=== PATIENT | female | born 1985 | race Caucasian/White ===

== ENCOUNTER 2017-01-11 03:01 | Emergency (ER) | payer BC ==
[~2017-01-11] VITALS: Ht 162.6 cm; Wt 113.9 kg
[~2017-01-11 03:01] MED LIST: ALPR0.25 PO; ESCI20TA PO; FLUT1DIS3 INH; LEVO750T31 PO; METH4TAB2 PO; PRED20TA PO
[2017-01-11 03:05] VITALS: BP 154/82
[2017-01-11] MEDS ORDERED: BENZ100C PO (03:17)
[2017-01-11] MEDS ORDERED: DEXAMETHASONE SOD PHOS 4 MG/ML VIAL ONE (03:20)
[2017-01-11] MEDS ORDERED: IBUPROFEN 600 MG TABLET. PO ONE ×2 (03:20→03:30)
--- NOTE | 2017-01-11 03:23 | ED.ADGEN ---
Past Medical History Past Medical History: Anxiety, Asthma, Pneumonia, Other Additional Past Medical Histor: h/o trach placement d/t pneumonia , PANIC ATTACKS Past Surgical History: , Tubal ligation, Other Additional Past Surgical Histo: TRACH, ORIF LEFT ARM Alcohol Use: None Drug Use: None Adult General Chief Complaint Chief Complaint: COUGH HPI HPI Patient is a 31 year old woman, history of asthma, pneumonia, who presents to the emergency department with a complaint of cough. Patient states that she's been experiencing rhinorrhea with post nasal drip, and cough over the past week or so, with sore throat that occurred several days ago, denies any sore throat this time, still complaining of post nasal drip and negative cough. States it is worse when she lies flat. She states that she was using some leftover Tessalon pearls they have not been helping. Denies any fevers or chills, any productive sputum over the past several days, any wheezing or shortness breath, any chest pain, any nausea or vomiting, any diarrhea. Denies any injuries. 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 Oxygen saturation is 94-98% room air, respiratory rate is 22 and unlabored, heart rate of 88. Review of Systems Review of Systems Constitutional: Denies fever or chills. [] Eyes: Denies change in visual acuity. [] HENT: Denies nasal congestion or sore throat. [] Respiratory: Denies cough and postnasal drip, no shortness of breath cough or shortness of breath. [] Cardiovascular: Denies chest pain or edema. [] GI: Denies abdominal pain, nausea, vomiting, bloody stools or diarrhea. [] : Denies dysuria. [] Musculoskeletal: Denies back pain or joint pain. [] Integument: Denies rash. [] Neurologic: Denies headache, focal weakness or sensory changes. [] Endocrine: Denies polyuria or polydipsia. [] Lymphatic: Denies swollen glands. [] Psychiatric: Denies depression or anxiety. [] Current Medications Current Medications Current Medications Medications (Trade) Dose Ordered Sig/Fady Start Time Stop Time Status Last Admin Dose Admin Dexamethasone Sodium Phosphate (Decadron) 6 mg 1X ONCE 01/11/17 03:15 01/11/17 03:16 UNV Ibuprofen (Motrin) 600 mg 1X ONCE 01/11/17 03:15 01/11/17 03:16 UNV Allergies Allergies Allergies Coded Allergies Type Severity Reaction Last Updated Verified diphenhydramine Allergy Intermediate 04/09/14 Yes Physical Exam Physical Exam Constitutional: Well developed, well nourished, no acute distress, non-toxic appearance. [] HENT: Normocephalic, atraumatic, bilateral external ears normal, oropharynx moist, no oral exudates, patient was determined swelling bilaterally, clear rhinorrhea, postnasal drip noted in the oropharynx, mildly injected, no evidence of exudates. Eyes: PERRLA, EOMI, conjunctiva normal, no discharge. [] Neck: Normal range of motion, no tenderness, supple, no stridor. [] Cardiovascular:Heart rate regular rhythm, no murmur, S1, S2, no rubs or gallops. [] Lungs & Thorax: Bilateral breath sounds clear to auscultation, no wheezing, rhonchi, rales. No chest wall tenderness or crepitus. [] Abdomen: Bowel sounds normal, soft, no tenderness, no rebound, rigidity, no guarding, no masses, no pulsatile masses. [] Skin: Warm, dry, no erythema, no rash. [] Back: No tenderness, no CVA tenderness. [] Extremities: No tenderness, no cyanosis, no clubbing, ROM intact, no edema. Negative Homans sign. [] Neurologic: Alert and oriented X 3, normal motor function, normal sensory function, no focal deficits noted. [] Psychologic: Affect normal, judgement normal, mood normal. [] Current Patient Data Vital Signs Vital Signs Date Time Temp Pulse Resp B/P Pulse Ox O2 Delivery O2 Flow Rate FiO2 01/11/17 03:05 98.0 95 22 96 Room Air 98.0 EKG EKG Not indicated. [] Radiology/Procedures Radiology/Procedures Not indicated. [] Course & Med Decision Making Course & Med Decision Making Pertinent Labs and Imaging studies reviewed. (See chart for details) Patient's examination and history is consistent with a viral upper respiratory infection. No evidence of lower airspace disease. I did discuss these findings with patient, due to the evidence irritation in her throat, we'll treat with a single dose of Decadron in the ED, there is no evidence of bacterial infection on examination or history. No indication for antibiotics. I did discuss this with patient, she is agreeable with this plan, single dose of Decadron given in the ED without issue along with ibuprofen, discussed use ibuprofen, acetaminophen, Tessalon Perles, patient was given a new prescription as the one she has are several years old, and use of Flonase which she does have at home already for treatment of symptoms, along with fluids and supportive care. We did discuss concerning symptoms that prompt return. Patient voiced understanding and agreement. Patient discharged home in stable condition with plan as above. Dragon Disclaimer Dragon Disclaimer This electronic medical record was generated, in whole or in part, using a voice recognition dictation system. Departure Impression: Primary Impression: Cough Additional Impression: Postnasal drip Disposition: 01 HOME, SELF-CARE Condition: IMPROVED Scripts Benzonatate (Tessalon Perle)100 Mg [id number] Mg PO TID PRN COUGH #14 CAP Prov:KIRK QURESHI DO 01/11/17 Problem Qualifiers KIRK QURESHI DO Jan 11, 2017 03:23
[2017-01-11] MEDS ORDERED: DEXAMETHASONE SOD PHOS 4 MG/ML VIAL PO ONE (03:30)
== END 2017-01-11 03:33 | disposition home or self-care (01) ==
LOC: ER 03:01
DX: R09.82 Postnasal drip (principal); R05 Cough; J45.909 Unspecified asthma, uncomplicated; Z87.01 Personal history of pneumonia (recurrent); Z88.8 Allergy status to other drugs, medicaments and biological substances
CPT/HCPCS: 99283; J1100

== ENCOUNTER 2017-08-15 22:02 | Emergency (ER) | payer BC ==
[~2017-08-15] VITALS: Ht 165.1 cm; Wt 117.9 kg
[~2017-08-15 22:02] MED LIST changes: +BENZ100C PO; -ESCI20TA PO; +ESCITALOPRAM OX20 MG PO
[2017-08-15 22:47] LABS: BILIRUBIN,URINE NEGATIVE (NEG); GLUCOSE,URINE NEGATIVE (NEG); NITRITE,URINE NEGATIVE (NEG); PROTEIN,URINE NEGATIVE (NEG-TRACE)
[2017-08-15 22:52] LABS: BACTERIA,URINE FEW /HPF (0-FEW); RBC,URINE OCC /HPF (0-2); SQUAMOUS EPITHELIAL CELL,UR MOD /LPF
[2017-08-15] MEDS ORDERED: fentaNYL PF VIAL 100 MCG/2 ML VIAL IV PRN (23:00)
[2017-08-15] MEDS ORDERED: IV NORMAL SALINE 1000ML BAG 1,000 ML IV SCH (23:00)
--- NOTE | 2017-08-15 23:34 | PHYS DOC ---
Past Medical History Past Medical History: Asthma Additional Past Medical Histor: h/o trach placement d/t pneumonia , PANIC ATTACKS Past Surgical History: Cholecystectomy, , Other Additional Past Surgical Histo: ARM Alcohol Use: None Drug Use: None Adult General Chief Complaint Chief Complaint: ABDOMINAL PAIN [facility] HPI This is A 31-year-old female who presents being prescribed chief complaint abdominal pain. The patient reports a small area in her left upper quadrant small area on her left lower quadrant and a small area in her right upper quadrant that is tender after doing some heavy lifting today. The patient is concerned that she would've developed a hernia. The patient never previously had a hernia. The patient rates the pain as a 7/10. The patient denies nausea or vomiting. The patient denies nausea or vomiting or diarrhea. Review of Systems Review of Systems Constitutional: Denies fever or chills [] Eyes: Denies change in visual acuity, redness, or eye pain [] HENT: Denies nasal congestion or sore throat [] Respiratory: Denies cough or shortness of breath [] Cardiovascular: No additional information not addressed in HPI [] GI: Denies nausea, vomiting, bloody stools or diarrhea [] : Denies dysuria or hematuria [] Musculoskeletal: Denies back pain or joint pain [] Integument: Denies rash or skin lesions [] Neurologic: Denies headache, focal weakness or sensory changes [] Endocrine: Denies polyuria or polydipsia [] Current Medications Current Medications Current Medications Medications (Trade) Dose Ordered Sig/Fady Start Time Stop Time Status Last Admin Dose Admin Fentanyl Citrate (Fentanyl 2ml Vial) 50 mcg PRN Q15MIN PRN 08/15/17 23:00 08/16/17 00:00 DC Sodium Chloride 1,000 ml @ 1,000 mls/hr Q1H 08/15/17 23:00 08/15/17 23:59 DC Allergies Allergies Allergies Coded Allergies Type Severity Reaction Last Updated Verified diphenhydramine Allergy Intermediate 04/09/14 Yes Physical Exam Physical Exam Constitutional: Well developed, well nourished, no acute distress, non-toxic appearance. [] HENT: Normocephalic, atraumatic, bilateral external ears normal, oropharynx moist, no oral exudates, nose normal. [] Eyes: PERRLA, EOMI, conjunctiva normal, no discharge. [] Neck: Normal range of motion, no tenderness, supple, no stridor. [] Cardiovascular:Heart rate regular rhythm, no murmur [] Lungs & Thorax: Bilateral breath sounds clear to auscultation [] Abdomen: Bowel sounds normal, soft, 2 cm area diameter left upper quadrant of abdominal tenderness, 2 cm diameter area left lower quadrant of abdominal tenderness, 2 cm diameter area of tenderness in the right upper quadrant, no abdomen allergies to the abdominal wall noted no hernias., no masses, no pulsatile masses. [] Skin: Warm, dry, no erythema, no rash. [] Back: No tenderness, no CVA tenderness. [] Extremities: No tenderness, no cyanosis, no clubbing, ROM intact, no edema. [] Neurologic: Alert and oriented X 3, normal motor function, normal sensory function, no focal deficits noted. [] Psychologic: Affect normal, judgement normal, mood normal. [] Current Patient Data Vital Signs Vital Signs Date Time Temp Pulse Resp B/P (MAP) Pulse Ox O2 Delivery O2 Flow Rate FiO2 08/15/17 23:58 98.2 81 16 138/89 (105) 95 Room Air 98.2 Lab Values Laboratory Tests Test 08/15/17 22:22 08/15/17 22:24 Urine Collection Type Unknown Urine Color Yellow Urine Clarity Clear Urine pH 6.0 Urine Specific [place] >=1.030 Urine Protein Negative mg/dL (NEG-TRACE) Urine Glucose (UA) Negative mg/dL (NEG) Urine Ketones (Stick) Negative mg/dL (NEG) Urine Blood Negative (NEG) Urine Nitrite Negative (NEG) Urine Bilirubin Negative (NEG) Urine Urobilinogen Dipstick 1.0 mg/dL (0.2 mg/dL) Urine Leukocyte Esterase Negative (NEG) Urine RBC Occ /HPF (0-2) Urine WBC 1-4 /HPF (0-4) Urine Squamous Epithelial Cells Mod /LPF Urine Bacteria Few /HPF (0-FEW) Urine Mucus Marked /LPF POC Urine HCG, Qualitative Hcg negative (Negative) EKG EKG [] Radiology/Procedures Radiology/Procedures [] Course & Med Decision Making Course & Med Decision Making Pertinent Labs and Imaging studies reviewed. (See chart for details) The patient has no abdominal wall abnormality. The patient does have a few areas of tenderness to her abdomen. The patient would like to try a course of outpatient ibuprofen and see if this improves. We discussed possibly the patient may have an abdominal wall strain which could be causing her discomfort. I referred her to follow up with primary care physician.[] Dragon Disclaimer Dragon Disclaimer This electronic medical record was generated, in whole or in part, using a voice recognition dictation system. Departure Departure Referrals: NITESH WHITLOCK (PCP) Scripts Ibuprofen (MOTRIN IB) 200 Mg Tablet 800 MG PO Q8H Y for PAIN, #30 TAB Prov: LIANNE LEWIS MD 08/15/17 LIANNE LEWIS MD Aug 15, 2017 23:34
[2017-08-15] MEDS ORDERED: IBUP200T43 PO (23:36)
[2017-08-15 23:58] VITALS: BP 138/89
== END 2017-08-16 | disposition home or self-care (01) ==
LOC: ER 22:02
DX: R10.84 Generalized abdominal pain (principal); J45.909 Unspecified asthma, uncomplicated; Z88.8 Allergy status to other drugs, medicaments and biological substances
CPT/HCPCS: 81001; 81025; 99283

== ENCOUNTER 2018-07-28 06:08 | Inpatient (IN) | payer BC ==
[~2018-07-28] VITALS: Ht 170.2 cm; Wt 106.6 kg
[~2018-07-28 06:08] MED LIST changes: +IBUP200T44 PO
--- NOTE | 2018-07-28 06:54 | PHYS DOC ---
Past Medical History Past Medical History: Anxiety, Asthma Additional Past Medical Histor: h/o trach placement d/t pneumonia , PANIC ATTACKS Past Surgical History: Cholecystectomy, , Other Additional Past Surgical Histo: ARM Alcohol Use: Occasionally Drug Use: Marijuana Adult General Chief Complaint Chief Complaint: SHORTNESS OF BREATH HPI HPI Patient is a 32 year old female who presents with dyspnea. The patient states she has had upper respiratory symptoms and congestion over the last 5-7 days. She had some sinus drainage as well. She does have a known history of asthma for which she uses albuterol at home. Over the last 2 days, her albuterol has been poorly controlled with her medications at home. She also has a cough that is productive of sputum. The patient does have a previous history of multilobar pneumonia requiring ICU admission and intubation with subsequent tracheostomy. She has had some chills this week but no fever. Her primary complaint on arrival to the ER today is shortness of breath. Review of Systems Review of Systems Constitutional: Denies fever Eyes: Denies change in visual acuity HENT: no sore throat Respiratory: + cough and SOA Cardiovascular: No additional information not addressed, no chest pain GI: Denies abdominal pain, nausea, vomiting : Denies dysuria Musculoskeletal: Denies joint pain Integument: Denies rash or skin lesions Neurologic: Denies headache All other systems were reviewed and found to be within normal limits, except as documented in this note. Current Medications Current Medications Current Medications Medications (Trade) Dose Ordered Sig/Fady Start Time Stop Time Status Last Admin Dose Admin Albuterol Sulfate (Ventolin Neb Soln) 10 mg 1X ONCE 07/28/18 07:00 07/28/18 07:02 DC 07/28/18 07:25 10 MG Albuterol/ Ipratropium (Duoneb) 3 ml 1X ONCE 07/28/18 07:00 07/28/18 07:01 DC 07/28/18 06:37 3 ML Azithromycin 250 ml @ 250 mls/hr 1X ONCE 07/28/18 08:15 07/28/18 09:14 Ceftriaxone Sodium 50 ml @ 100 mls/hr 1X ONCE 07/28/18 08:15 07/28/18 08:44 Magnesium Sulfate 50 ml @ 25 mls/hr 1X ONCE 07/28/18 07:15 07/28/18 09:14 07/28/18 07:41 25 MLS/HR Prednisone (Prednisone) 50 mg 1X ONCE 07/28/18 07:00 07/28/18 07:01 DC 07/28/18 06:47 50 MG Sodium Chloride 1,000 ml @ 1,000 mls/hr 1X ONCE 07/28/18 07:00 07/28/18 07:59 DC 07/28/18 07:03 1,000 MLS/HR Allergies Allergies Allergies Coded Allergies Type Severity Reaction Last Updated Verified diphenhydramine Allergy Intermediate 04/09/14 Yes Physical Exam Physical Exam Constitutional: Well developed, well nourished, mild increased work of breathing but no acute distress HENT: Normocephalic, atraumatic Eyes: EOMI, normal conjunctiva Neck: Normal range of motion, no tenderness, supple Cardiovascular: tachycardic rhythm Lungs & Thorax: Bilateral breath sounds diminished with faint wheezes Abdomen: Bowel sounds normal, soft, no tenderness Skin: Warm, dry, no erythema Extremities: No edema Neurologic: Alert and oriented X 3 Psychologic: Affect normal Current Patient Data Vital Signs Vital Signs Date Time Temp Pulse Resp B/P (MAP) Pulse Ox O2 Delivery O2 Flow Rate FiO2 07/28/18 07:28 117 22 163/91 (115) 93 CONT NEB 07/28/18 06:10 99.0 99.0 Lab Values Laboratory Tests Test 07/28/18 06:40 07/28/18 07:10 07/28/18 07:35 Lactic Acid Level 1.6 mmol/L (0.4-2.0) White Blood Count 10.8 x10^3/uL (4.0-11.0) Red Blood Count 5.09 x10^6/uL (3.50-5.40) Hemoglobin 14.3 g/dL (12.0-15.5) Hematocrit 41.5 % (36.0-47.0) Mean Corpuscular Volume 81 fL (79-100) Mean Corpuscular Hemoglobin 28 pg (25-35) Mean Corpuscular Hemoglobin Concent 35 g/dL (31-37) Red Cell Distribution Width 13.8 % (11.5-14.5) Platelet Count 225 x10^3/uL (140-400) Neutrophils (%) (Auto) 73 % (31-73) Lymphocytes (%) (Auto) 19 % (24-48) L Monocytes (%) (Auto) 4 % (0-9) Eosinophils (%) (Auto) 4 % (0-3) H Basophils (%) (Auto) 1 % (0-3) Neutrophils # (Auto) 7.8 x10^3uL (1.8-7.7) H Lymphocytes # (Auto) 2.0 x10^3/uL (1.0-4.8) Monocytes # (Auto) 0.5 x10^3/uL (0.0-1.1) Eosinophils # (Auto) 0.4 x10^3/uL (0.0-0.7) Basophils # (Auto) 0.1 x10^3/uL (0.0-0.2) D-Dimer ([place]) 0.30 ug/mlFEU (0.00-0.50) Sodium Level 136 mmol/L (136-145) Potassium Level 3.9 mmol/L (3.5-5.1) Chloride Level 102 mmol/L (98-107) Carbon Dioxide Level 25 mmol/L (21-32) Anion Gap 9 (6-14) Blood Urea Nitrogen 12 mg/dL (7-20) Creatinine 0.8 mg/dL (0.6-1.0) Estimated GFR (Cockcroft-Gault) 84.2 Glucose Level 129 mg/dL (70-99) H Calcium Level 9.1 mg/dL (8.5-10.1) Troponin I Quantitative < 0.017 ng/mL (0.000-0.055) YU-Dcb-P-Type Natriuretic Peptide 30 pg/mL (0-124) POC Urine HCG, Qualitative Hcg negative (Negative) Laboratory Tests 07/28/18 07:10 Laboratory Tests 07/28/18 07:10 EKG EKG [] Radiology/Procedures Radiology/Procedures Findings: Decreased lung volumes are seen. Chronic bibasilar scarring is seen. However, there appears to be an infiltrate with air bronchograms within the medial left lung base and infrahilar region. Developing pneumonia is possible here. The heart size, pulmonary vasculature, mediastinum and both yeni are stable. Impression: Left infrahilar pneumonia. Impressions: Pneumonia Course & Med Decision Making Course & Med Decision Making Pertinent Labs and Imaging studies reviewed. (See chart for details) Patient is seen shortly after arrival to her room. HR noted to be 120's. Diminished air flow in all lung boggs. No fever. Orders placed for d dimer, labs, PCXR, magnesium, albuterol. 08:20: X-ray is returned. Patient has left infrahilar infiltrate. Blood cultures were added to her lab panel. Rocephin and azithromycin are ordered IV. The patient currently has some improvement in her vital signs. Her heart rate continues to be 120. She does have an O2 sat of 95% which was improved from 91% on arrival to the ER. Her CBC is not elevated. Her lactate is normal range. She does continue to have wheezes. She is status post one hour long albuterol nebulized treatment and 2 g of magnesium sulfate. Given the patient's history of prior pneumonia, intubation, and trach placement, plan today will be to admit the patient for IV antibiotics and close observation as well as ongoing treatment of her reactive airway disease. I spoke to Dr. tamayo who is agreeable to admit the patient. I also explained all the results to the patient and answered all of her questions. She is agreeable to the plan of care. Dragon Disclaimer Dragon Disclaimer This electronic medical record was generated, in whole or in part, using a voice recognition dictation system. Departure Departure Referrals: NITESH WHITLOCK (PCP) DARWIN VEE DO Jul 28, 2018 06:54
[2018-07-28] MEDS ORDERED: ALBUTEROL SULFATE 2.5 MG/3 ML NEBU. CONT NEB ONE (07:00)
[2018-07-28] MEDS ORDERED: IV NORMAL SALINE 1000ML BAG 1,000 ML IV ONE (07:00)
[2018-07-28] MEDS ORDERED: predniSONE 20 MG TABLET PO ONE (07:00)
[2018-07-28] MEDS ORDERED: IPRATRPIUM/ALBUTEROL 0.5/2.5MG 3 ML NEBU. NEB ONE (07:00)
[2018-07-28] MEDS ORDERED: MAGNESIUM SULFATE 2GM 50 ML IV ONE (07:15)
[2018-07-28 07:18] LABS: BASO # 0.1 x10^3/uL (0.0-0.2); BASO % 1 % (0-3); EOS # 0.4 x10^3/uL (0.0-0.7); EOS % 4 % (0-3); HEMATOCRIT 41.5 % (36.0-47.0); HEMOGLOBIN 14.3 g/dL (12.0-15.5); LYMPH % 19 % (24-48); MEAN CORPUSCULAR HEMOGLOBIN 28 pg (25-35); MEAN CORPUSCULAR HGB CONC 35 g/dL (31-37); MEAN CORPUSCULAR VOLUME 81 fL (79-100); MONO # 0.5 x10^3/uL (0.0-1.1); MONO % 4 % (0-9); NEUT # 7.8 x10^3uL (1.8-7.7); NEUT % 73 % (31-73); PLATELET COUNT 225 x10^3/uL (140-400); RED BLOOD COUNT 5.09 x10^6/uL (3.50-5.40); RED CELL DISTRIBUTION WIDTH 13.8 % (11.5-14.5); WHITE BLOOD COUNT 10.8 x10^3/uL (4.0-11.0)
[2018-07-28 07:27] LABS: CALCIUM 9.1 mg/dL (8.5-10.1); CREATININE 0.8 mg/dL (0.6-1.0); GFR 84.2; POTASSIUM 3.9 mmol/L (3.5-5.1)
--- NOTE | 2018-07-28 07:58 | RAD ---
PORTABLE CHEST 1V Clinical indications: History of asthma. productive cough COMPARISON: August 06, 2016. Findings: Decreased lung volumes are seen. Chronic bibasilar scarring is seen. However, there appears to be an infiltrate with air bronchograms within the medial left lung base and infrahilar region. Developing pneumonia is possible here. The heart size, pulmonary vasculature, mediastinum and both yeni are stable. Impression: Left infrahilar pneumonia. Electronically signed by: Lester Bowling MD (07/28/2018 7:54 AM) [facility]
[2018-07-28] MEDS ORDERED: AZITHRMYCN 500MG IVPB FOR OMNI 250 ML IV ONE (08:15)
[2018-07-28] MEDS ORDERED: ONDANSETRON PF 4 MG/2 ML VIAL. IV PRN (08:45)
[2018-07-28] MEDS ORDERED: HYDROcodone/APAP 5/325MG 1 TAB TABLET PO ONE (08:45)
[2018-07-28] MEDS ORDERED: ACETAMINOPHEN 325 MG TABLET. PO PRN (08:45)
[2018-07-28] MEDS ORDERED: ALBUTEROL SULFATE 2.5 MG/3 ML NEBU. NEB PRN (09:30)
[2018-07-28] MEDS ORDERED: BUDESONIDE 0.5 MG/2 ML NEBU. NEB ONE (09:30)
[2018-07-28 10:56] VITALS: BP 133/76
[2018-07-28] MEDS: IPRATRPIUM/ALBUTEROL 0.5/2.5MG 3 ML NEBU. NEB SCH ×3 (11:05→19:17)
[2018-07-28] MEDS ORDERED: TOPI25TA7 PO (11:23)
[2018-07-28] MEDS ORDERED: METF500T16 PO (11:23)
[2018-07-28] MEDS ORDERED: PHEN37.53 PO (11:23)
[2018-07-28] MEDS: AZITHROMYCIN 250 MG TABLET. PO SCH (12:39)
[2018-07-28] MEDS ORDERED: IBUPROFEN 800 MG TABLET. PO PRN (12:45)
[2018-07-28] MEDS ORDERED: BENZONATATE 100 MG CAPSULE. PO PRN (14:00)
[2018-07-28] MEDS: CITALOPRAM 20 MG TABLET. PO SCH (14:53)
[2018-07-28 15:00] VITALS: BP 129/77
[2018-07-28] MEDS: PROMETH/CODEINE 6.25/10MG 5 ML SYRUP. PO PRN (16:00)
--- NOTE | 2018-07-28 16:33 | PDOC1 ---
History and Physical Date of Admission Date of Admission DATE: 07/28/18 TIME: 16:14 Identification/Chief Complaint Chief Complaint cough, dyspnea Source Source: Chart review, Patient History of Present Illness History of Present Illness Ms. Ordaz, is a 32 year old female seen in the ER, cough and shortness of breath, admit with dyspnea. she complains of respiratory symptoms and congestion over the last 5-7 days. much worse overnight and this AM with cough, not prod. of sputum she has been using her rescue inhaler repeatedly without much benefit. Past Medical History Cardiovascular: No pertinent hx Pulmonary: Asthma GI: No pertinent hx Heme/Onc: No pertinent hx Hepatobiliary: No pertinent hx Psych: No pertinent hx Infectious disease: No pertinent hx Family History Family History: No Significant Social History Smoke: # pack years Drugs: None Current Problem List Problem List Problems Medical Problems: (1) Pneumonia Status: Acute Current Medications Current Medications Current Medications Prednisone (Prednisone) 50 mg 1X ONCE PO Last administered on 07/28/18at 06:47; Start 07/28/18 at 07:00; Stop 07/28/18 at 07:01; Status DC Albuterol/ Ipratropium (Duoneb) 3 ml 1X ONCE NEB Last administered on at 06:37; Start 07/28/18 at 07:00; Stop 07/28/18 at 07:01; Status DC Sodium Chloride 1,000 ml @ 1,000 mls/hr 1X ONCE IV Last administered on at 07:03; Start 07/28/18 at 07:00; Stop 07/28/18 at 07:59; Status DC Albuterol Sulfate (Ventolin Neb Soln) 10 mg 1X ONCE CONT NEB Last administered on 07/28/18at 07:25; Start 07/28/18 at 07:00; Stop 07/28/18 at 07:02; Status DC Magnesium Sulfate 50 ml @ 25 mls/hr 1X ONCE IV Last administered on 07/28/18at 07:41; Start 07/28/18 at 07:15; Stop 07/28/18 at 09:14; Status DC Ceftriaxone Sodium 50 ml @ 100 mls/hr 1X ONCE IV Last administered on at 08:52; Start 07/28/18 at 08:15; Stop 07/28/18 at 08:44; Status DC Azithromycin 250 ml @ 250 mls/hr 1X ONCE IV Last administered on 07/28/18at 09: 20; Start 07/28/18 at 08:15; Stop 07/28/18 at 09:14; Status DC Acetaminophen/ Hydrocodone Bitart (Lortab 5/325) 2 tab 1X ONCE PO Last administered on 07/28/18at 08:49; Start 07/28/18 at 08:45; Stop 07/28/18 at 08:46; Status DC Ondansetron HCl (Zofran) 4 mg PRN Q8HRS PRN IV NAUSEA/VOMITING; Start 07/28/18 at 08:45; Stop 07/29/18 at 08:44 Acetaminophen (Tylenol) 650 mg PRN Q4HRS PRN PO FEVER; Start 07/28/18 at 08:45; Stop 07/29/18 at 08:44 Albuterol/ Ipratropium (Duoneb) 3 ml RTQID NEB Last administered on 07/28/18at 15 :56; Start 07/28/18 at 12:00; Stop 07/29/18 at 11:59 Acetaminophen/ Hydrocodone Bitart (Lortab 5/325) 2 tab Q6H PRN PO pain unrelieved by other meds; Start 07/28/18 at 08:45 Prednisone (Prednisone) 60 mg DAILY PO ; Start 07/29/18 at 09:00 Budesonide (Pulmicort) 0.5 mg RTBID NEB ; Start 07/28/18 at 20:00 Budesonide (Pulmicort) 0.5 mg 1X ONCE NEB Last administered on 07/28/18at 11:06 ; Start 07/28/18 at 09:30; Stop 07/28/18 at 09:31; Status DC Albuterol Sulfate (Ventolin Neb Soln) 2.5 mg PRN Q4HRS PRN NEB SHORTNESS OF BREATH; Start 07/28/18 at 09:30 Azithromycin (Zithromax) 250 mg DAILY PO Last administered on 07/28/18at 12:39; Start 07/28/18 at 10:00 Alprazolam (Xanax) 0.25 mg PRN Q6HRS PRN PO ANXIETY / AGITATION; Start 07/28/18 at 12:45 Ibuprofen (Motrin) 800 mg PRN Q8HRS PRN PO PAIN MILD/INFLAMMATION; Start at 12:45 Benzonatate (Tessalon Perle) 100 mg PRN TID PRN PO COUGH 2ND CHOICE; Start 07/28 at 14:00 Citalopram Hydrobromide (CeleXA) 40 mg DAILY PO Last administered on 07/28/18at 14:53; Start 07/28/18 at 13:00 Metformin HCl (Glucophage) 500 mg BIDWMEALS PO ; Start 07/28/18 at 17:00 Promethazine HCl/ Codeine (Phenergan With Codeine) 5 ml PRN Q6HRS PRN PO COUGH 1ST CHOICE Last administered on 07/28/18at 16:00; Start 07/28/18 at 15:30 Guaifenesin (MUCINEX ER with DM) 1 tab BID PO ; Start 07/28/18 at 21:00 Lactobacillus Rhamnosus (Culturelle) 1 cap BID PO ; Start 07/28/18 at 21:00 Active Scripts Active Motrin Ib (Ibuprofen) 200 Mg Tablet 800 Mg PO Q8H PRN Tessalon Perle (Benzonatate) 100 Mg Capsule 100 Mg PO TID PRN Prednisone 20 Mg Tablet 40 Mg PO DAILY START MEDICATIONS ON 08/07/2016 Medrol (Methylprednisolone) 4 Mg Tab.ds.pk 1 Pkg PO UD Levaquin (Levofloxacin) 750 Mg Tablet 750 Mg PO DAILY06 Advair 250-50 Diskus (Fluticasone/Salmeterol) 1 Puff Puff 1 Puff INH BID Reported Topiramate 25 Mg Tablet 1 Tab PO HS Phentermine Hcl 37.5 Mg Capsule 1 Cap PO DAILYWBKFT Metformin Hcl 500 Mg Tablet 500 Mg PO BIDWMEALS Escitalopram Oxalate 20 Mg Tablet 1 Tab PO DAILY Xanax (Alprazolam) 0.25 Mg Tablet 0.25 Mg PO PRN Q6HRS PRN Allergies Allergies: Coded Allergies: diphenhydramine (Verified Allergy, Intermediate, 04/09/14) ROS General: YES: Fatigue, Malaise PSYCHOLOGICAL ROS: YES: Sleep disturbances, Suicidal ideation; No: Anxiety, Behavioral Disorder, Concentration difficultie, Decreased libido , Depression, Disorientation, Hallucinations, Hostility, Irritablity, Memory difficulties, Mood Swings, Obsessive thoughts, Other Eyes: No Blurry vision, No Decreased vision, No Double vision, No Dry eyes, No Excessive tearing, No Eye Pain, No Itchy Eyes, No Loss of vision, No Photophobia , No Scotomata, No Uses contacts, No Uses glasses, No Other HEENT: No: Heacaches, Visual Changes, Hearing change, Nasal congestion, Nasal discharge, Oral lesions, Sinus pain, Sore Throat, Epistaxis, Sneezing, Snoring, Tinnitus, Vertigo, Vocal changes, Other ENDOCRINE: No: Breast Changes, Galactorrhea, Hair Pattern Changes, Hot Flashes , Malaise/lethargy, Mood Swings, Palpitations, Polydipsia/polyuria, Skin Changes , Temperature Intolerance, Unexpected Weight Changes, Other Breast: No New/Changing Breast Lumps, No Nipple changes, No Nipple discharge, No Other Respiratory: YES: Cough, Shortness of breath, SOB with excertion, Tachypnea, Wheezing; No: Hemoptysis, Orthopnea, Pleuritic Pain, Sputum Changes, Stridor, Other Cardiovascular: No Chest Pain, No Palpitations, No Orthopnea, No Paroxysmal Noc. Dyspnea, No Edema, No Lt Headedness, No Other Gastrointestinal: No Nausea, No Vomiting, No Abdominal Pain, No Diarrhea, No Constipation, No Melena, No Hematochezia, No Other Genitourinary: No Dysuria, No Frequency, No Incontinence, No Hematuria, No Retention, No Discharge, No Urgency, No Pain, No Flank Pain, No Other, No , No , No , No , No , No , No Musculoskeletal: No Gait Disturbance, No Joint Pain, No Joint Stiffness, No Joint Swelling, No Muscle Pain, No Muscular Weakness, No Pain In:, No Swelling In:, No Other Neurological: No Behavorial Changes, No Bowel/Bladder ControlChng, No Confusion , No Dizziness, No Gait Disturbance, No Headaches, No Impaired Coord/balance, No Memory Loss, No Numbness/Tingling, No Seizures, No Speech Problems, No Tremors, No Visual Changes, No Weakness, No Other Skin: Yes Dry Skin; No Eczema, No Hair Changes, No Lumps, No Mole Changes, No Mottling, No Nail Changes, No Pruritus, No Rash, No Skin Lesion Changes, No Other, No Acne Physical Exam General: Alert, Cooperative, mild distress HEENT: Atraumatic, PERRLA, EOMI, Mucous membr. moist/pink Lungs: Normal air movement, Other (rhonchi, rales, end wheeze) Heart: S1S2, no gallops, no murmurs Abdomen: Normal bowel sounds, Soft Rectal Exam: not examined, deferred Extremities: No cyanosis, No edema, Normal pulses Skin: No rashes Neuro: Normal speech, Normal tone, Sensation intact Psych/Mental Status: Mental status NL, Mood NL Vitals Vitals Vital Signs Date Time Temp Pulse Resp B/P (MAP) Pulse Ox O2 Delivery O2 Flow Rate FiO2 07/28/18 15:56 93 Nasal Cannula 3.0 07/28/18 15:00 97.9 123 129/77 (94) 97.9 07/28/18 10:56 20 Labs Labs Laboratory Tests Test 07/28/18 06:40 07/28/18 07:10 07/28/18 07:35 Lactic Acid Level 1.6 mmol/L (0.4-2.0) White Blood Count 10.8 x10^3/uL (4.0-11.0) Red Blood Count 5.09 x10^6/uL (3.50-5.40) Hemoglobin 14.3 g/dL (12.0-15.5) Hematocrit 41.5 % (36.0-47.0) Mean Corpuscular Volume 81 fL (79-100) Mean Corpuscular Hemoglobin 28 pg (25-35) Mean Corpuscular Hemoglobin Concent 35 g/dL (31-37) Red Cell Distribution Width 13.8 % (11.5-14.5) Platelet Count 225 x10^3/uL (140-400) Neutrophils (%) (Auto) 73 % (31-73) Lymphocytes (%) (Auto) 19 % (24-48) Monocytes (%) (Auto) 4 % (0-9) Eosinophils (%) (Auto) 4 % (0-3) Basophils (%) (Auto) 1 % (0-3) Neutrophils # (Auto) 7.8 x10^3uL (1.8-7.7) Lymphocytes # (Auto) 2.0 x10^3/uL (1.0-4.8) Monocytes # (Auto) 0.5 x10^3/uL (0.0-1.1) Eosinophils # (Auto) 0.4 x10^3/uL (0.0-0.7) Basophils # (Auto) 0.1 x10^3/uL (0.0-0.2) D-Dimer (Alannah) 0.30 ug/mlFEU (0.00-0.50) Sodium Level 136 mmol/L (136-145) Potassium Level 3.9 mmol/L (3.5-5.1) Chloride Level 102 mmol/L (98-107) Carbon Dioxide Level 25 mmol/L (21-32) Anion Gap 9 (6-14) Blood Urea Nitrogen 12 mg/dL (7-20) Creatinine 0.8 mg/dL (0.6-1.0) Estimated GFR (Cockcroft-Gault) 84.2 Glucose Level 129 mg/dL (70-99) Calcium Level 9.1 mg/dL (8.5-10.1) Troponin I Quantitative < 0.017 ng/mL (0.000-0.055) HQ-Sql-C-Type Natriuretic Peptide 30 pg/mL (0-124) Bedside Urine HCG, Qualitative Hcg negative (Negative) Laboratory Tests Test 07/28/18 06:40 07/28/18 07:10 07/28/18 07:35 Lactic Acid Level 1.6 mmol/L (0.4-2.0) White Blood Count 10.8 x10^3/uL (4.0-11.0) Red Blood Count 5.09 x10^6/uL (3.50-5.40) Hemoglobin 14.3 g/dL (12.0-15.5) Hematocrit 41.5 % (36.0-47.0) Mean Corpuscular Volume 81 fL (79-100) Mean Corpuscular Hemoglobin 28 pg (25-35) Mean Corpuscular Hemoglobin Concent 35 g/dL (31-37) Red Cell Distribution Width 13.8 % (11.5-14.5) Platelet Count 225 x10^3/uL (140-400) Neutrophils (%) (Auto) 73 % (31-73) Lymphocytes (%) (Auto) 19 % (24-48) Monocytes (%) (Auto) 4 % (0-9) Eosinophils (%) (Auto) 4 % (0-3) Basophils (%) (Auto) 1 % (0-3) Neutrophils # (Auto) 7.8 x10^3uL (1.8-7.7) Lymphocytes # (Auto) 2.0 x10^3/uL (1.0-4.8) Monocytes # (Auto) 0.5 x10^3/uL (0.0-1.1) Eosinophils # (Auto) 0.4 x10^3/uL (0.0-0.7) Basophils # (Auto) 0.1 x10^3/uL (0.0-0.2) D-Dimer (Alannah) 0.30 ug/mlFEU (0.00-0.50) Sodium Level 136 mmol/L (136-145) Potassium Level 3.9 mmol/L (3.5-5.1) Chloride Level 102 mmol/L (98-107) Carbon Dioxide Level 25 mmol/L (21-32) Anion Gap 9 (6-14) Blood Urea Nitrogen 12 mg/dL (7-20) Creatinine 0.8 mg/dL (0.6-1.0) Estimated GFR (Cockcroft-Gault) 84.2 Glucose Level 129 mg/dL (70-99) Calcium Level 9.1 mg/dL (8.5-10.1) Troponin I Quantitative < 0.017 ng/mL (0.000-0.055) HI-Xcr-N-Type Natriuretic Peptide 30 pg/mL (0-124) Bedside Urine HCG, Qualitative Hcg negative (Negative) VTE Prophylaxis Ordered VTE Prophylaxis Devices: Yes VTE Pharmacological Prophylaxi: No Assessment/Plan Assessment/Plan sepsis, pneumonia EZ, abx started, Pulm consulted hypoxia, nebs, inhl and systemtic steroids, hx asthma morbid obesity, BMI 40.7 admit RAMON RUST MD Jul 28, 2018 16:32
[2018-07-28] MEDS: metFORMIN 500 MG TABLET PO SCH (16:55)
[2018-07-28] MEDS: HYDROcodone/APAP 5/325MG 1 TAB TABLET PO PRN (16:56)
[2018-07-28] MEDS: ALPRAZolam 0.25 MG TABLET PO PRN (17:00)
--- NOTE | 2018-07-28 17:07 | PDOC ---
PULMONARY PROGRESS NOTES Vitals Vital Signs Date Time Temp Pulse Resp B/P (MAP) Pulse Ox O2 Delivery O2 Flow Rate FiO2 07/28/18 15:56 93 Nasal Cannula 3.0 07/28/18 15:00 97.9 123 129/77 (94) 97.9 07/28/18 10:56 20 General: Alert, No acute distress Lungs: Other Cardiovascular: S1 Abdomen: Soft Extremities: No Edema Labs Laboratory Tests Test 07/28/18 06:40 07/28/18 07:10 07/28/18 07:35 Lactic Acid Level 1.6 mmol/L (0.4-2.0) White Blood Count 10.8 x10^3/uL (4.0-11.0) Red Blood Count 5.09 x10^6/uL (3.50-5.40) Hemoglobin 14.3 g/dL (12.0-15.5) Hematocrit 41.5 % (36.0-47.0) Mean Corpuscular Volume 81 fL (79-100) Mean Corpuscular Hemoglobin 28 pg (25-35) Mean Corpuscular Hemoglobin Concent 35 g/dL (31-37) Red Cell Distribution Width 13.8 % (11.5-14.5) Platelet Count 225 x10^3/uL (140-400) Neutrophils (%) (Auto) 73 % (31-73) Lymphocytes (%) (Auto) 19 % (24-48) Monocytes (%) (Auto) 4 % (0-9) Eosinophils (%) (Auto) 4 % (0-3) Basophils (%) (Auto) 1 % (0-3) Neutrophils # (Auto) 7.8 x10^3uL (1.8-7.7) Lymphocytes # (Auto) 2.0 x10^3/uL (1.0-4.8) Monocytes # (Auto) 0.5 x10^3/uL (0.0-1.1) Eosinophils # (Auto) 0.4 x10^3/uL (0.0-0.7) Basophils # (Auto) 0.1 x10^3/uL (0.0-0.2) D-Dimer (Alannah) 0.30 ug/mlFEU (0.00-0.50) Sodium Level 136 mmol/L (136-145) Potassium Level 3.9 mmol/L (3.5-5.1) Chloride Level 102 mmol/L (98-107) Carbon Dioxide Level 25 mmol/L (21-32) Anion Gap 9 (6-14) Blood Urea Nitrogen 12 mg/dL (7-20) Creatinine 0.8 mg/dL (0.6-1.0) Estimated GFR (Cockcroft-Gault) 84.2 Glucose Level 129 mg/dL (70-99) Calcium Level 9.1 mg/dL (8.5-10.1) Troponin I Quantitative < 0.017 ng/mL (0.000-0.055) DA-Bsx-K-Type Natriuretic Peptide 30 pg/mL (0-124) Bedside Urine HCG, Qualitative Hcg negative (Negative) Laboratory Tests Test 07/28/18 06:40 07/28/18 07:10 07/28/18 07:35 Lactic Acid Level 1.6 mmol/L (0.4-2.0) White Blood Count 10.8 x10^3/uL (4.0-11.0) Red Blood Count 5.09 x10^6/uL (3.50-5.40) Hemoglobin 14.3 g/dL (12.0-15.5) Hematocrit 41.5 % (36.0-47.0) Mean Corpuscular Volume 81 fL (79-100) Mean Corpuscular Hemoglobin 28 pg (25-35) Mean Corpuscular Hemoglobin Concent 35 g/dL (31-37) Red Cell Distribution Width 13.8 % (11.5-14.5) Platelet Count 225 x10^3/uL (140-400) Neutrophils (%) (Auto) 73 % (31-73) Lymphocytes (%) (Auto) 19 % (24-48) Monocytes (%) (Auto) 4 % (0-9) Eosinophils (%) (Auto) 4 % (0-3) Basophils (%) (Auto) 1 % (0-3) Neutrophils # (Auto) 7.8 x10^3uL (1.8-7.7) Lymphocytes # (Auto) 2.0 x10^3/uL (1.0-4.8) Monocytes # (Auto) 0.5 x10^3/uL (0.0-1.1) Eosinophils # (Auto) 0.4 x10^3/uL (0.0-0.7) Basophils # (Auto) 0.1 x10^3/uL (0.0-0.2) D-Dimer (Alannah) 0.30 ug/mlFEU (0.00-0.50) Sodium Level 136 mmol/L (136-145) Potassium Level 3.9 mmol/L (3.5-5.1) Chloride Level 102 mmol/L (98-107) Carbon Dioxide Level 25 mmol/L (21-32) Anion Gap 9 (6-14) Blood Urea Nitrogen 12 mg/dL (7-20) Creatinine 0.8 mg/dL (0.6-1.0) Estimated GFR (Cockcroft-Gault) 84.2 Glucose Level 129 mg/dL (70-99) Calcium Level 9.1 mg/dL (8.5-10.1) Troponin I Quantitative < 0.017 ng/mL (0.000-0.055) QV-Kzl-H-Type Natriuretic Peptide 30 pg/mL (0-124) Bedside Urine HCG, Qualitative Hcg negative (Negative) Medications Active Scripts Medications Dose Route/Sig Max Daily Dose Days Date Category Dose Instructions Topiramate 25 Mg Tablet 1 Tab PO HS 07/28/18 Reported Phentermine Hcl 37.5 Mg Capsule 1 Cap PO DAILYWBKFT 07/28/18 Reported Metformin Hcl 500 Mg Tablet 500 Mg PO BIDWMEALS 07/28/18 Reported Motrin Ib (Ibuprofen) 200 Mg Tablet 800 Mg PO Q8H PRN 08/15/17 Rx Tessalon Perle (Benzonatate) 100 Mg Capsule 100 Mg PO TID PRN 01/11/17 Rx Prednisone 20 Mg Tablet 40 Mg PO DAILY 08/06/16 Rx START MEDICATIONS ON 08/07/2016 Medrol (Methylprednisolone) 4 Mg Tab.ds.pk 1 Pkg PO UD 11/16/14 Rx Levaquin (Levofloxacin) 750 Mg Tablet 750 Mg PO DAILY06 11/16/14 Rx Advair 250-50 Diskus (Fluticasone/Salmeterol) 1 Puff Puff 1 Puff INH BID 11/16/14 Rx Escitalopram Oxalate 20 Mg Tablet 1 Tab PO DAILY 11/09/14 Reported Xanax (Alprazolam) 0.25 Mg Tablet 0.25 Mg PO PRN Q6HRS PRN 11/09/14 Reported Impression . pneumonia aecodp agree with current rx thanks DESI HERNÁNDEZ MD Jul 28, 2018 17:07
[2018-07-28 19:06] VITALS: BP 140/91
[2018-07-28] MEDS: BUDESONIDE 0.5 MG/2 ML NEBU. NEB SCH (19:18)
--- NOTE | 2018-07-28 19:33 | CONS ---
DATE OF CONSULTATION: 07/28/2018 ATTENDING PHYSICIAN: Dr. Jazmin Busch. REASON FOR CONSULTATION: The patient seen in pulmonary consultation at the request of Dr. Busch for increasing shortness of air, abnormal chest x-ray. HISTORY OF PRESENT ILLNESS: The patient is a 32-year-old with what sounds like mild intermittent asthma. She normally uses p.r.n. albuterol. She states that when she is doing well, she on average, may use it once every 2 weeks. In the past, she has been on Advair, but has not had any frequent acute exacerbations. She presented as a result of having upper respiratory tract infection last week, cough. She became more short of breath and wheezing. She presented to the Emergency Department. She had a chest x-ray, which I personally reviewed. There is a left infrahilar infiltrate. She was also hypoxic. She is currently on oxygen supplementation and antibiotics. PAST MEDICAL HISTORY: 1. Asthma as a child, mild. She normally uses albuterol p.r.n. She does also smoke. She may have a component of COPD. 2. Anxiety/depression. 3. Prior history of pneumonia and trach placement. 4. Panic attack. PAST SURGICAL HISTORY: Status post cholecystectomy, . ALLERGIES: DIPHENHYDRAMINE. REVIEW OF SYSTEMS: CONSTITUTIONAL: No fever. EYES: No change in visual acuity. HEENT: No nasal congestion or sore throat. RESPIRATORY: As indicated above. CARDIOVASCULAR: No chest pain. No pressure. GASTROINTESTINAL: No nausea, vomiting or diarrhea. GENITOURINARY: No dysuria or frequency. MUSCULOSKELETAL: No localized joint pain or muscle pain. She does have some lower back pain secondary to cough. SKIN: No new skin rashes. NEUROLOGIC: No headaches, diplopia or blurred vision. CURRENT MEDICATIONS: List was reviewed. SOCIAL HISTORY: She smokes on and off. Works outside the home. No significant alcohol intake. FAMILY HISTORY: No family history of early lung disorders. PHYSICAL EXAMINATION: VITAL SIGNS: Stable. O2 saturation was greater than 92%. HEENT: Eyes, the sclerae were nonicteric. NECK: Jugular venous distention was not elevated. No lymphadenopathy. CHEST: Full expansion. LUNGS: Poor airway flow with no wheezes or rales. CARDIOVASCULAR: Regular rate and rhythm with S1, S2, no S3. ABDOMEN: Soft, obese. EXTREMITIES: No clubbing, cyanosis or pitting edema. NEUROLOGIC: The patient was awake, alert, following commands. A detailed neuro exam was not performed. LABORATORY DATA: Reviewed. White count was normal. Hemoglobin and hematocrit were likewise normal. Electrolytes were within normal range. D-dimer was not elevated. UA was noted. IMPRESSION: 1. Abnormal x-ray compatible with pneumonia. 2. Acute exacerbation of chronic obstructive pulmonary disease with an asthma component. 3. Acute hypoxemic respiratory failure. 4. Morbid obesity, body mass index of 40. 5. Anxiety/panic attacks. 6. Status post cholecystectomy. PLAN: 1. Discontinue coverage for pneumonia. 2. Nebulized treatments. 3. Oxygen supplementation. 4. Steroids. 5. P.r.n. Xanax. 6. Pain management. I do appreciate the privilege in sharing in the patient's care. DESI HERNÁNDEZ MD DR: JOSE/lester JOB#: [id number] / [id number]
[2018-07-28] MEDS: LACTOBACILLUS RHAMNOSUS GG 1 CAPSULE. PO SCH (20:52)
[2018-07-28] MEDS: guaiFENesin DM 600/30MG 1 TAB TAB.ER.12H PO SCH (20:52)
[2018-07-28 22:41] VITALS: BP 116/70
[2018-07-29 02:32] VITALS: BP 109/67
[2018-07-29] MEDS: PROMETH/CODEINE 6.25/10MG 5 ML SYRUP. PO PRN ×3 (03:39→16:25)
[2018-07-29 05:40] LABS: BASO % 0 % (0-3); EOS # 0.1 x10^3/uL (0.0-0.7); EOS % 1 % (0-3); HEMATOCRIT 41.1 % (36.0-47.0); HEMOGLOBIN 13.5 g/dL (12.0-15.5); LYMPH # 2.1 x10^3/uL (1.0-4.8); LYMPH % 17 % (24-48); MEAN CORPUSCULAR HEMOGLOBIN 27 pg (25-35); MEAN CORPUSCULAR HGB CONC 33 g/dL (31-37); MEAN CORPUSCULAR VOLUME 82 fL (79-100); MONO # 0.9 x10^3/uL (0.0-1.1); MONO % 7 % (0-9); NEUT # 9.2 x10^3uL (1.8-7.7); NEUT % 75 % (31-73); PLATELET COUNT 223 x10^3/uL (140-400); RED BLOOD COUNT 5.02 x10^6/uL (3.50-5.40); RED CELL DISTRIBUTION WIDTH 14.1 % (11.5-14.5); WHITE BLOOD COUNT 12.4 x10^3/uL (4.0-11.0)
[2018-07-29] MEDS: HYDROcodone/APAP 5/325MG 1 TAB TABLET PO PRN ×3 (06:41→23:09)
[2018-07-29 07:00] VITALS: BP 125/84
[2018-07-29] MEDS: IPRATRPIUM/ALBUTEROL 0.5/2.5MG 3 ML NEBU. NEB SCH ×5 (07:29→22:50)
[2018-07-29] MEDS: BUDESONIDE 0.5 MG/2 ML NEBU. NEB SCH ×2 (07:29→19:49)
[2018-07-29] MEDS ORDERED: predniSONE 20 MG TABLET PO SCH (09:00)
[2018-07-29] MEDS: predniSONE 20 MG TABLET PO SCH (10:06)
[2018-07-29] MEDS: cefTRIAXone IV Push 1 GM VIAL. IVP SCH (10:06)
[2018-07-29] MEDS: AZITHROMYCIN 250 MG TABLET. PO SCH (10:06)
[2018-07-29] MEDS: LACTOBACILLUS RHAMNOSUS GG 1 CAPSULE. PO SCH ×2 (10:06→21:44)
[2018-07-29] MEDS: metFORMIN 500 MG TABLET PO SCH ×2 (10:07→17:00)
[2018-07-29] MEDS: guaiFENesin DM 600/30MG 1 TAB TAB.ER.12H PO SCH ×2 (10:07→21:44)
[2018-07-29] MEDS: CITALOPRAM 20 MG TABLET. PO SCH (10:08)
--- NOTE | 2018-07-29 10:29 | PDOC ---
PULMONARY PROGRESS NOTES Subjective remains on 50% VM Vitals Vital Signs Date Time Temp Pulse Resp B/P (MAP) Pulse Ox O2 Delivery O2 Flow Rate FiO2 07/29/18 07:41 20 84 Venturi Mask 20.0 07/29/18 07:00 98.1 120 125/84 (98) 98.1 ROS: No Chest Pain General: Alert, Oriented X4, No acute distress Lungs: Wheezing Cardiovascular: S1 Abdomen: Soft Neuro Exam: Alert Extremities: No Edema Skin: Warm Labs Laboratory Tests Test 07/28/18 06:40 07/28/18 07:10 07/28/18 07:35 07/29/18 04:10 Lactic Acid Level 1.6 mmol/L (0.4-2.0) White Blood Count 10.8 x10^3/uL (4.0-11.0) 12.4 x10^3/uL (4.0-11.0) Red Blood Count 5.09 x10^6/uL (3.50-5.40) 5.02 x10^6/uL (3.50-5.40) Hemoglobin 14.3 g/dL (12.0-15.5) 13.5 g/dL (12.0-15.5) Hematocrit 41.5 % (36.0-47.0) 41.1 % (36.0-47.0) Mean Corpuscular Volume 81 fL (79-100) 82 fL (79-100) Mean Corpuscular Hemoglobin 28 pg (25-35) 27 pg (25-35) Mean Corpuscular Hemoglobin Concent 35 g/dL (31-37) 33 g/dL (31-37) Red Cell Distribution Width 13.8 % (11.5-14.5) 14.1 % (11.5-14.5) Platelet Count 225 x10^3/uL (140-400) 223 x10^3/uL (140-400) Neutrophils (%) (Auto) 73 % (31-73) 75 % (31-73) Lymphocytes (%) (Auto) 19 % (24-48) 17 % (24-48) Monocytes (%) (Auto) 4 % (0-9) 7 % (0-9) Eosinophils (%) (Auto) 4 % (0-3) 1 % (0-3) Basophils (%) (Auto) 1 % (0-3) 0 % (0-3) Neutrophils # (Auto) 7.8 x10^3uL (1.8-7.7) 9.2 x10^3uL (1.8-7.7) Lymphocytes # (Auto) 2.0 x10^3/uL (1.0-4.8) 2.1 x10^3/uL (1.0-4.8) Monocytes # (Auto) 0.5 x10^3/uL (0.0-1.1) 0.9 x10^3/uL (0.0-1.1) Eosinophils # (Auto) 0.4 x10^3/uL (0.0-0.7) 0.1 x10^3/uL (0.0-0.7) Basophils # (Auto) 0.1 x10^3/uL (0.0-0.2) 0.0 x10^3/uL (0.0-0.2) D-Dimer (Alannah) 0.30 ug/mlFEU (0.00-0.50) Sodium Level 136 mmol/L (136-145) Potassium Level 3.9 mmol/L (3.5-5.1) Chloride Level 102 mmol/L (98-107) Carbon Dioxide Level 25 mmol/L (21-32) Anion Gap 9 (6-14) Blood Urea Nitrogen 12 mg/dL (7-20) Creatinine 0.8 mg/dL (0.6-1.0) Estimated GFR (Cockcroft-Gault) 84.2 Glucose Level 129 mg/dL (70-99) Calcium Level 9.1 mg/dL (8.5-10.1) Troponin I Quantitative < 0.017 ng/mL (0.000-0.055) JK-Pqh-A-Type Natriuretic Peptide 30 pg/mL (0-124) Bedside Urine HCG, Qualitative Hcg negative (Negative) Laboratory Tests Test 07/29/18 04:10 White Blood Count 12.4 x10^3/uL (4.0-11.0) Red Blood Count 5.02 x10^6/uL (3.50-5.40) Hemoglobin 13.5 g/dL (12.0-15.5) Hematocrit 41.1 % (36.0-47.0) Mean Corpuscular Volume 82 fL (79-100) Mean Corpuscular Hemoglobin 27 pg (25-35) Mean Corpuscular Hemoglobin Concent 33 g/dL (31-37) Red Cell Distribution Width 14.1 % (11.5-14.5) Platelet Count 223 x10^3/uL (140-400) Neutrophils (%) (Auto) 75 % (31-73) Lymphocytes (%) (Auto) 17 % (24-48) Monocytes (%) (Auto) 7 % (0-9) Eosinophils (%) (Auto) 1 % (0-3) Basophils (%) (Auto) 0 % (0-3) Neutrophils # (Auto) 9.2 x10^3uL (1.8-7.7) Lymphocytes # (Auto) 2.1 x10^3/uL (1.0-4.8) Monocytes # (Auto) 0.9 x10^3/uL (0.0-1.1) Eosinophils # (Auto) 0.1 x10^3/uL (0.0-0.7) Basophils # (Auto) 0.0 x10^3/uL (0.0-0.2) Medications Active Scripts Medications Dose Route/Sig Max Daily Dose Days Date Category Dose Instructions Topiramate 25 Mg Tablet 1 Tab PO HS 07/28/18 Reported Phentermine Hcl 37.5 Mg Capsule 1 Cap PO DAILYWBKFT 07/28/18 Reported Metformin Hcl 500 Mg Tablet 500 Mg PO BIDWMEALS 07/28/18 Reported Motrin Ib (Ibuprofen) 200 Mg Tablet 800 Mg PO Q8H PRN 08/15/17 Rx Tessalon Perle (Benzonatate) 100 Mg Capsule 100 Mg PO TID PRN 01/11/17 Rx Prednisone 20 Mg Tablet 40 Mg PO DAILY 08/06/16 Rx START MEDICATIONS ON 08/07/2016 Medrol (Methylprednisolone) 4 Mg Tab.ds.pk 1 Pkg PO UD 11/16/14 Rx Levaquin (Levofloxacin) 750 Mg Tablet 750 Mg PO DAILY06 11/16/14 Rx Advair 250-50 Diskus (Fluticasone/Salmeterol) 1 Puff Puff 1 Puff INH BID 11/16/14 Rx Escitalopram Oxalate 20 Mg Tablet 1 Tab PO DAILY 11/09/14 Reported Xanax (Alprazolam) 0.25 Mg Tablet 0.25 Mg PO PRN Q6HRS PRN 11/09/14 Reported Impression . 1. Abnormal x-ray compatible with pneumonia. Left Infra hilar infiltrate 2. Acute exacerbation of chronic obstructive pulmonary disease with an asthma component. 3. Acute hypoxemic respiratory failure. 4. Morbid obesity, body mass index of 40. 5. Anxiety/panic attacks. 6. Status post cholecystectomy. Plan . 1. continue coverage for pneumonia. 2. Nebulized treatments. increase q 4 hr, add pulmicort 3. Oxygen supplementation. 4. Steroids PO 5. P.r.n. Xanax. 6. Pain management. MINI ORTIZ MD Jul 29, 2018 10:29
[2018-07-29 11:00] VITALS: BP 119/80
--- NOTE | 2018-07-29 11:36 | PDOC ---
PROGRESS NOTES Chief Complaint Chief Complaint sepsis, pneumonia EZ, acute hypoxic resp failure copd/asthma exacerbation smoker morbid obesity plan: fu with pulm cont abx cont duoneb, increased to q4h, cont albuterol prn decrease prednison on venti mask now, taper if tolerated to NC dvt, gi ppx labs tmr History of Present Illness History of Present Illness T 100.3 on venti mask cough and sob slightly better Vitals Vitals Vital Signs Date Time Temp Pulse Resp B/P (MAP) Pulse Ox O2 Delivery O2 Flow Rate FiO2 07/29/18 11:22 90 Venturi Mask 15.0 07/29/18 07:41 20 07/29/18 07:00 98.1 120 125/84 (98) 98.1 Physical Exam General: Alert, Cooperative, mild distress Heart: Regular rate, Normal S1, Normal S2 Lungs: Wheezing (bl mild decreased bs and mild wheezing) Abdomen: Normal bowel sounds, Soft Extremities: No cyanosis, No edema, Normal pulses Skin: No rashes Labs LABS Laboratory Tests Test 07/29/18 04:10 White Blood Count 12.4 x10^3/uL (4.0-11.0) Red Blood Count 5.02 x10^6/uL (3.50-5.40) Hemoglobin 13.5 g/dL (12.0-15.5) Hematocrit 41.1 % (36.0-47.0) Mean Corpuscular Volume 82 fL (79-100) Mean Corpuscular Hemoglobin 27 pg (25-35) Mean Corpuscular Hemoglobin Concent 33 g/dL (31-37) Red Cell Distribution Width 14.1 % (11.5-14.5) Platelet Count 223 x10^3/uL (140-400) Neutrophils (%) (Auto) 75 % (31-73) Lymphocytes (%) (Auto) 17 % (24-48) Monocytes (%) (Auto) 7 % (0-9) Eosinophils (%) (Auto) 1 % (0-3) Basophils (%) (Auto) 0 % (0-3) Neutrophils # (Auto) 9.2 x10^3uL (1.8-7.7) Lymphocytes # (Auto) 2.1 x10^3/uL (1.0-4.8) Monocytes # (Auto) 0.9 x10^3/uL (0.0-1.1) Eosinophils # (Auto) 0.1 x10^3/uL (0.0-0.7) Basophils # (Auto) 0.0 x10^3/uL (0.0-0.2) Assessment and Plan Assessmemt and Plan Problems Medical Problems: (1) Pneumonia Status: Acute Comment Review of Relevant I have reviewed the following items [place] (where applicable) has been applied. Labs Laboratory Tests Test 07/28/18 06:40 07/28/18 07:10 07/28/18 07:35 07/29/18 04:10 Lactic Acid Level 1.6 mmol/L (0.4-2.0) White Blood Count 10.8 x10^3/uL (4.0-11.0) 12.4 x10^3/uL (4.0-11.0) Red Blood Count 5.09 x10^6/uL (3.50-5.40) 5.02 x10^6/uL (3.50-5.40) Hemoglobin 14.3 g/dL (12.0-15.5) 13.5 g/dL (12.0-15.5) Hematocrit 41.5 % (36.0-47.0) 41.1 % (36.0-47.0) Mean Corpuscular Volume 81 fL (79-100) 82 fL (79-100) Mean Corpuscular Hemoglobin 28 pg (25-35) 27 pg (25-35) Mean Corpuscular Hemoglobin Concent 35 g/dL (31-37) 33 g/dL (31-37) Red Cell Distribution Width 13.8 % (11.5-14.5) 14.1 % (11.5-14.5) Platelet Count 225 x10^3/uL (140-400) 223 x10^3/uL (140-400) Neutrophils (%) (Auto) 73 % (31-73) 75 % (31-73) Lymphocytes (%) (Auto) 19 % (24-48) 17 % (24-48) Monocytes (%) (Auto) 4 % (0-9) 7 % (0-9) Eosinophils (%) (Auto) 4 % (0-3) 1 % (0-3) Basophils (%) (Auto) 1 % (0-3) 0 % (0-3) Neutrophils # (Auto) 7.8 x10^3uL (1.8-7.7) 9.2 x10^3uL (1.8-7.7) Lymphocytes # (Auto) 2.0 x10^3/uL (1.0-4.8) 2.1 x10^3/uL (1.0-4.8) Monocytes # (Auto) 0.5 x10^3/uL (0.0-1.1) 0.9 x10^3/uL (0.0-1.1) Eosinophils # (Auto) 0.4 x10^3/uL (0.0-0.7) 0.1 x10^3/uL (0.0-0.7) Basophils # (Auto) 0.1 x10^3/uL (0.0-0.2) 0.0 x10^3/uL (0.0-0.2) D-Dimer ([place]annah) 0.30 ug/mlFEU (0.00-0.50) Sodium Level 136 mmol/L (136-145) Potassium Level 3.9 mmol/L (3.5-5.1) Chloride Level 102 mmol/L (98-107) Carbon Dioxide Level 25 mmol/L (21-32) Anion Gap 9 (6-14) Blood Urea Nitrogen 12 mg/dL (7-20) Creatinine 0.8 mg/dL (0.6-1.0) Estimated GFR (Cockcroft-Gault) 84.2 Glucose Level 129 mg/dL (70-99) Calcium Level 9.1 mg/dL (8.5-10.1) Troponin I Quantitative < 0.017 ng/mL (0.000-0.055) PT-Drz-[id number]-Type Natriuretic Peptide 30 pg/mL (0-124) Bedside Urine HCG, Qualitative Hcg negative (Negative) Laboratory Tests Test 07/29/18 04:10 White Blood Count 12.4 x10^3/uL (4.0-11.0) Red Blood Count 5.02 x10^6/uL (3.50-5.40) Hemoglobin 13.5 g/dL (12.0-15.5) Hematocrit 41.1 % (36.0-47.0) Mean Corpuscular Volume 82 fL (79-100) Mean Corpuscular Hemoglobin 27 pg (25-35) Mean Corpuscular Hemoglobin Concent 33 g/dL (31-37) Red Cell Distribution Width 14.1 % (11.5-14.5) Platelet Count 223 x10^3/uL (140-400) Neutrophils (%) (Auto) 75 % (31-73) Lymphocytes (%) (Auto) 17 % (24-48) Monocytes (%) (Auto) 7 % (0-9) Eosinophils (%) (Auto) 1 % (0-3) Basophils (%) (Auto) 0 % (0-3) Neutrophils # (Auto) 9.2 x10^3uL (1.8-7.7) Lymphocytes # (Auto) 2.1 x10^3/uL (1.0-4.8) Monocytes # (Auto) 0.9 x10^3/uL (0.0-1.1) Eosinophils # (Auto) 0.1 x10^3/uL (0.0-0.7) Basophils # (Auto) 0.0 x10^3/uL (0.0-0.2) Microbiology 07/28/18 Blood Culture - Preliminary, Resulted NO GROWTH AFTER 1 DAY Medications Current Medications Prednisone (Prednisone) 50 mg 1X ONCE PO Last administered on 07/28/18at 06:47; Start 07/28/18 at 07:00; Stop 07/28/18 at 07:01; Status DC Albuterol/ Ipratropium (Duoneb) 3 ml 1X ONCE NEB Last administered on at 06:37; Start 07/28/18 at 07:00; Stop 07/28/18 at 07:01; Status DC Sodium Chloride 1,000 ml @ 1,000 mls/hr 1X ONCE IV Last administered on at 07:03; Start 07/28/18 at 07:00; Stop 07/28/18 at 07:59; Status DC Albuterol Sulfate (Ventolin Neb Soln) 10 mg 1X ONCE CONT NEB Last administered on 07/28/18at 07:25; Start 07/28/18 at 07:00; Stop 07/28/18 at 07:02; Status DC Magnesium Sulfate 50 ml @ 25 mls/hr 1X ONCE IV Last administered on 07/28/18at 07:41; Start 07/28/18 at 07:15; Stop 07/28/18 at 09:14; Status DC Ceftriaxone Sodium 50 ml @ 100 mls/hr 1X ONCE IV Last administered on at 08:52; Start 07/28/18 at 08:15; Stop 07/28/18 at 08:44; Status DC Azithromycin 250 ml @ 250 mls/hr 1X ONCE IV Last administered on 07/28/18at 09: 20; Start 07/28/18 at 08:15; Stop 07/28/18 at 09:14; Status DC Acetaminophen/ Hydrocodone Bitart (Lortab 5/325) 2 tab 1X ONCE PO Last administered on 07/28/18at 08:49; Start 07/28/18 at 08:45; Stop 07/28/18 at 08:46; Status DC Ondansetron HCl (Zofran) 4 mg PRN Q8HRS PRN IV NAUSEA/VOMITING Last administered on 07/28/18at 22:40; Start 07/28/18 at 08:45; Stop 07/29/18 at 08:44; Status DC Acetaminophen (Tylenol) 650 mg PRN Q4HRS PRN PO FEVER Last administered on at 22:40; Start 07/28/18 at 08:45; Stop 07/29/18 at 08:44; Status DC Albuterol/ Ipratropium (Duoneb) 3 ml RTQID NEB Last administered on 07/29/18at 07 :29; Start 07/28/18 at 12:00; Stop 07/29/18 at 10:30; Status DC Acetaminophen/ Hydrocodone Bitart (Lortab 5/325) 2 tab Q6H PRN PO pain unrelieved by other meds Last administered on 07/29/18at 06:41; Start 07/28/18 at 08:45 Prednisone (Prednisone) 60 mg DAILY PO ; Start 07/29/18 at 09:00; Stop 07/29/18 at 09:00; Status DC Budesonide (Pulmicort) 0.5 mg RTBID NEB Last administered on 07/29/18at 07:29; Start 07/28/18 at 20:00 Budesonide (Pulmicort) 0.5 mg 1X ONCE NEB Last administered on 07/28/18at 11:06 ; Start 07/28/18 at 09:30; Stop 07/28/18 at 09:31; Status DC Albuterol Sulfate (Ventolin Neb Soln) 2.5 mg PRN Q4HRS PRN NEB SHORTNESS OF BREATH; Start 07/28/18 at 09:30 Azithromycin (Zithromax) 250 mg DAILY PO Last administered on 07/29/18at 10:06; Start 07/28/18 at 10:00 Alprazolam (Xanax) 0.25 mg PRN Q6HRS PRN PO ANXIETY / AGITATION Last administered on 07/28/18at 17:00; Start 07/28/18 at 12:45 Ibuprofen (Motrin) 800 mg PRN Q8HRS PRN PO PAIN MILD/INFLAMMATION; Start at 12:45 Benzonatate (Tessalon Perle) 100 mg PRN TID PRN PO COUGH 2ND CHOICE; Start 07/28 at 14:00 Citalopram Hydrobromide (CeleXA) 40 mg DAILY PO Last administered on 07/29/18at 10:08; Start 07/28/18 at 13:00 Metformin HCl (Glucophage) 500 mg BIDWMEALS PO Last administered on 07/29/18at 10 :07; Start 07/28/18 at 17:00 Promethazine HCl/ Codeine (Phenergan With Codeine) 5 ml PRN Q6HRS PRN PO COUGH 1ST CHOICE Last administered on 07/29/18at 10:11; Start 07/28/18 at 15:30 Guaifenesin (MUCINEX ER with DM) 1 tab BID PO Last administered on 07/29/18at 10: 07; Start 07/28/18 at 21:00 Lactobacillus Rhamnosus (Culturelle) 1 cap BID PO Last administered on at 10:06; Start 07/28/18 at 21:00 Prednisone (Prednisone) 30 mg DAILY PO Last administered on 07/29/18at 10:06; Start 07/29/18 at 09:00 Ceftriaxone Sodium 1 gm/ Dextrose 50 ml @ 100 mls/hr Q24H IV ; Start 07/29/18 at 09:00; Status UNV Ceftriaxone Sodium (Rocephin) 1 gm Q24H IVP Last administered on 07/29/18at 10:06 ; Start 07/29/18 at 09:00 Albuterol/ Ipratropium (Duoneb) 3 ml Q4HRS NEB Last administered on 07/29/18at 11 :22; Start 07/29/18 at 12:00 Budesonide (Pulmicort) 0.5 mg RTBID NEB ; Start 07/29/18 at 20:00; Status UNV Active Scripts Active Motrin Ib (Ibuprofen) 200 Mg Tablet 800 Mg PO Q8H PRN Tessalon Perle (Benzonatate) 100 Mg Capsule 100 Mg PO TID PRN Prednisone 20 Mg Tablet 40 Mg PO DAILY START MEDICATIONS ON 08/07/2016 Medrol (Methylprednisolone) 4 Mg Tab.ds.pk 1 Pkg PO UD Levaquin (Levofloxacin) 750 Mg Tablet 750 Mg PO DAILY06 Advair 250-50 Diskus (Fluticasone/Salmeterol) 1 Puff Puff 1 Puff INH BID Reported Topiramate 25 Mg Tablet 1 Tab PO HS Phentermine Hcl 37.5 Mg Capsule 1 Cap PO DAILYWBKFT Metformin Hcl 500 Mg Tablet 500 Mg PO BIDWMEALS Escitalopram Oxalate 20 Mg Tablet 1 Tab PO DAILY Xanax (Alprazolam) 0.25 Mg Tablet 0.25 Mg PO PRN Q6HRS PRN Vitals/I & O Vital Sign - Last 24 Hours 07/28/18 07/28/18 07/28/18 07/28/18 15:00 15:56 16:56 19:06 Temp 97.9 98.0 97.9 98.0 Pulse 123 118 Resp 20 19 B/P (MAP) 129/77 (94) 140/91 (107) Pulse Ox 90 93 94 94 O2 Delivery Nasal Cannula Nasal Cannula Room Air Nasal Cannula O2 Flow Rate 2.0 3.0 2.0 07/28/18 07/28/18 07/28/18 07/28/18 19:19 19:20 20:00 22:41 Temp 100.3 100.3 Pulse 119 Resp 19 B/P (MAP) 116/70 (85) Pulse Ox 93 O2 Delivery Nasal Cannula Nasal Cannula Nasal Cannula Nasal Cannula O2 Flow Rate 3.0 3.0 2.0 2.0 07/29/18 07/29/18 07/29/18 07/29/18 02:32 06:41 07:00 07:29 Temp 98.7 98.1 98.7 98.1 Pulse 60 120 Resp 18 24 B/P (MAP) 109/67 (81) 125/84 (98) Pulse Ox 96 83 79 O2 Delivery Nasal Cannula Nasal Cannula Venturi Mask Nasal Cannula O2 Flow Rate 2.0 2.0 12.0 3.0 07/29/18 07/29/18 07:41 11:22 Resp 20 Pulse Ox 84 90 O2 Delivery Venturi Mask Venturi Mask O2 Flow Rate 20.0 15.0 Intake and Output 07/28/18 07/28/18 07/29/18 15:00 23:00 07:00 Intake Total 1350 ml 1100 ml 1200 ml Balance 1350 ml 1100 ml 1200 ml HUGH VILLEGAS MD Jul 29, 2018 11:36
[2018-07-29] MEDS ORDERED: ONDANSETRON PF 4 MG/2 ML VIAL. IV PRN (11:45)
[2018-07-29] MEDS ORDERED: ACETAMINOPHEN 325 MG TABLET. PO PRN (11:45)
[2018-07-29] MEDS ORDERED: MORPHINE SULFATE 2 MG/ML VIAL. IV PRN (11:45)
[2018-07-29] MEDS ORDERED: DOCUSATE SODIUM 100 MG CAPSULE. PO PRN (11:45)
[2018-07-29] MEDS ORDERED: traMADol 50 MG TABLET PO PRN (11:45)
[2018-07-29] MEDS: ENOXAPARIN 40 MG/0.4 ML SYRINGE. SQ SCH (13:30)
[2018-07-29 15:51] VITALS: BP 121/85
[2018-07-29 19:00] VITALS: BP 141/86
[2018-07-29] MEDS ORDERED: BUDESONIDE 0.5 MG/2 ML NEBU. NEB SCH (20:00)
[2018-07-29] MEDS ORDERED: FAMOTIDINE 20 MG TABLET. PO SCH (21:00)
--- NOTE | 2018-07-29 22:44 | EKG ---
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
[2018-07-29 23:02] LABS: BASE EXCESS ABG -2 mmol/L (-3-3); HCO3 ABG 25 mmol/L (21-28); PCO2 ABG 50 mmHg (35-46)
[2018-07-29 23:06] VITALS: BP 144/93
[2018-07-29] MEDS: ALPRAZolam 0.25 MG TABLET PO PRN (23:13)
[2018-07-29 23:31] LABS: SAT O2 ABG 67 % (92-99)
[2018-07-29 23:32] LABS: PO2 ABG < 42 mmHg (85-108)
[2018-07-30] VITALS (27 sets, daily range): BP systolic 56–173; BP diastolic 0–106
[2018-07-30] MEDS: ENOXAPARIN 40 MG/0.4 ML SYRINGE. SQ SCH ×2 (00:44→13:45)
[2018-07-30] MEDS: HALOPERIDOL LACTATE 5 MG/ML VIAL. IVP PRN ×2 (01:29→03:24)
[2018-07-30 03:41] LABS: BASE EXCESS ABG -1 mmol/L (-3-3); HCO3 ABG 27 mmol/L (21-28); PCO2 ABG 54 mmHg (35-46); PO2 ABG 87 mmHg (85-108); SAT O2 ABG 96 % (92-99)
[2018-07-30] MEDS: IPRATRPIUM/ALBUTEROL 0.5/2.5MG 3 ML NEBU. NEB SCH ×6 (03:46→23:14)
[2018-07-30 03:50] LABS: FIO2 ABG 100
[2018-07-30] MEDS ORDERED: PROPOFOL 100 ML IV ONE (04:12)
[2018-07-30] MEDS ORDERED: ETOMIDATE 20 MG/10 ML VIAL. IV ONE (04:18)
[2018-07-30 04:39] LABS: BASO % 0 % (0-3); EOS % 0 % (0-3); HEMATOCRIT 42.1 % (36.0-47.0); LYMPH # 2.1 x10^3/uL (1.0-4.8); LYMPH % 8 % (24-48); MEAN CORPUSCULAR HEMOGLOBIN 28 pg (25-35); MEAN CORPUSCULAR HGB CONC 33 g/dL (31-37); MEAN CORPUSCULAR VOLUME 83 fL (79-100); MONO # 1.9 x10^3/uL (0.0-1.1); MONO % 7 % (0-9); NEUT # 22.5 x10^3uL (1.8-7.7); NEUT % 85 % (31-73); PLATELET COUNT 246 x10^3/uL (140-400); RED BLOOD COUNT 5.07 x10^6/uL (3.50-5.40); RED CELL DISTRIBUTION WIDTH 14.4 % (11.5-14.5); WHITE BLOOD COUNT 26.5 x10^3/uL (4.0-11.0)
[2018-07-30 04:53] LABS: CALCIUM 9.1 mg/dL (8.5-10.1); CREATININE 0.8 mg/dL (0.6-1.0); GFR 84.2
--- NOTE | 2018-07-30 05:00 | RAD ---
AP chest x-ray COMPARISON: Chest x-ray July 28, 2018. HISTORY: Endotracheal and nasogastric tube placement. FINDINGS: Endotracheal tube has been placed tip 3 cm above the tom. Nasogastric tube has been placed tip extends to the left upper quadrant abdomen outside the [id number]. Heart size stable. No pneumothorax. Development of extensive alveolar opacities bilaterally since the study from 2 days ago most likely represents pulmonary edema or sequela of extensive aspiration. No pleural effusions. Bones unremarkable. IMPRESSION: Lines and tubes as described above. No pneumothorax. Development of extensive bilateral pulmonary alveolar opacities, likely pulmonary edema. Extensive aspiration would be a secondary consideration. Electronically signed by: Osmany Lam MD (07/30/2018 4:56 AM) [id number]
[2018-07-30 05:01] LABS: BASE EXCESS ABG -1 mmol/L (-3-3); HCO3 ABG 25 mmol/L (21-28); PCO2 ABG 48 mmHg (35-46); PO2 ABG 59 mmHg (85-108); SAT O2 ABG 90 % (92-99)
[2018-07-30 05:06] LABS: FIO2 ABG 100
[2018-07-30] MEDS: PROPOFOL 100 ML IV PRN ×7 (05:15→21:19)
[2018-07-30] MEDS: metFORMIN 500 MG TABLET PO SCH ×2 (08:00→14:12)
[2018-07-30] MEDS: BUDESONIDE 0.5 MG/2 ML NEBU. NEB SCH ×2 (08:22→19:19)
[2018-07-30 08:32] LABS: BASE EXCESS ABG 1 mmol/L (-3-3); HCO3 ABG 27 mmol/L (21-28); PCO2 ABG 48 mmHg (35-46); PO2 ABG 79 mmHg (85-108); SAT O2 ABG 96 % (92-99)
[2018-07-30] MEDS: guaiFENesin DM 600/30MG 1 TAB TAB.ER.12H PO SCH ×2 (08:50→20:57)
[2018-07-30] MEDS: predniSONE 20 MG TABLET PO SCH (09:00)
[2018-07-30] MEDS: cefTRIAXone IV Push 1 GM VIAL. IVP SCH (09:00)
[2018-07-30] MEDS: LACTOBACILLUS RHAMNOSUS GG 1 CAPSULE. PO SCH (09:00)
[2018-07-30] MEDS: CHLORHEXIDINE 0.12% 15 ML MOUTHWASH. MM SCH ×2 (09:00→20:57)
[2018-07-30 09:45] LABS: FIO2 ABG 100
[2018-07-30 09:58] LABS: % BANDS 3 % (0-9); % LYMPHS 8 % (24-48); % MONOS 1 % (0-10); % SEGS 88 % (35-66); PLT ESTIMATE ADEQUATE (ADEQUATE)
[2018-07-30] MEDS ORDERED: PIP/TAZO PER PHARMACY MC PRN (10:00)
--- NOTE | 2018-07-30 10:06 | PDOC ---
PULMONARY PROGRESS NOTES Subjective patient intubated last night after progressive hypoxia and failed BIPAP intubated/ sedated ,on 90% FIO2 Vitals Vital Signs Date Time Temp Pulse Resp B/P (MAP) Pulse Ox O2 Delivery O2 Flow Rate FiO2 07/30/18 09:00 107 18 113/59 (77) 95 Ventilator 07/30/18 07:00 98.1 98.1 07/29/18 23:09 15.0 Lungs: Wheezing (bilat mild wheezing) Cardiovascular: S1 Abdomen: Soft Extremities: No Edema Skin: Warm Labs Laboratory Tests Test 07/29/18 04:10 07/29/18 23:00 07/30/18 03:40 07/30/18 04:25 White Blood Count 12.4 x10^3/uL (4.0-11.0) 26.5 x10^3/uL (4.0-11.0) Red Blood Count 5.02 x10^6/uL (3.50-5.40) 5.07 x10^6/uL (3.50-5.40) Hemoglobin 13.5 g/dL (12.0-15.5) 14.0 g/dL (12.0-15.5) Hematocrit 41.1 % (36.0-47.0) 42.1 % (36.0-47.0) Mean Corpuscular Volume 82 fL (79-100) 83 fL (79-100) Mean Corpuscular Hemoglobin 27 pg (25-35) 28 pg (25-35) Mean Corpuscular Hemoglobin Concent 33 g/dL (31-37) 33 g/dL (31-37) Red Cell Distribution Width 14.1 % (11.5-14.5) 14.4 % (11.5-14.5) Platelet Count 223 x10^3/uL (140-400) 246 x10^3/uL (140-400) Neutrophils (%) (Auto) 75 % (31-73) 85 % (31-73) Lymphocytes (%) (Auto) 17 % (24-48) 8 % (24-48) Monocytes (%) (Auto) 7 % (0-9) 7 % (0-9) Eosinophils (%) (Auto) 1 % (0-3) 0 % (0-3) Basophils (%) (Auto) 0 % (0-3) 0 % (0-3) Neutrophils # (Auto) 9.2 x10^3uL (1.8-7.7) 22.5 x10^3uL (1.8-7.7) Lymphocytes # (Auto) 2.1 x10^3/uL (1.0-4.8) 2.1 x10^3/uL (1.0-4.8) Monocytes # (Auto) 0.9 x10^3/uL (0.0-1.1) 1.9 x10^3/uL (0.0-1.1) Eosinophils # (Auto) 0.1 x10^3/uL (0.0-0.7) 0.0 x10^3/uL (0.0-0.7) Basophils # (Auto) 0.0 x10^3/uL (0.0-0.2) 0.0 x10^3/uL (0.0-0.2) O2 Saturation 67 % (92-99) 96 % (92-99) Arterial Blood pH 7.31 (7.35-7.45) 7.31 (7.35-7.45) Arterial Blood pCO2 at Patient Temp 50 mmHg (35-46) 54 mmHg (35-46) Arterial Blood pO2 at Patient Temp < 42 mmHg (85-108) 87 mmHg (85-108) Arterial Blood HCO3 25 mmol/L (21-28) 27 mmol/L (21-28) Arterial Blood Base Excess -2 mmol/L (-3-3) -1 mmol/L (-3-3) FiO2 50.0 100 Segmented Neutrophils % 88 % (35-66) Band Neutrophils % 3 % (0-9) Lymphocytes % 8 % (24-48) Monocytes % 1 % (0-10) Platelet Estimate Adequate (ADEQUATE) Sodium Level 136 mmol/L (136-145) Potassium Level 5.0 mmol/L (3.5-5.1) Chloride Level 101 mmol/L (98-107) Carbon Dioxide Level 28 mmol/L (21-32) Anion Gap 7 (6-14) Blood Urea Nitrogen 13 mg/dL (7-20) Creatinine 0.8 mg/dL (0.6-1.0) Estimated GFR (Cockcroft-Gault) 84.2 Glucose Level 126 mg/dL (70-99) Calcium Level 9.1 mg/dL (8.5-10.1) Test 07/30/18 04:58 07/30/18 08:25 O2 Saturation 90 % (92-99) 96 % (92-99) Arterial Blood pH 7.34 (7.35-7.45) 7.37 (7.35-7.45) Arterial Blood pCO2 at Patient Temp 48 mmHg (35-46) 48 mmHg (35-46) Arterial Blood pO2 at Patient Temp 59 mmHg (85-108) 79 mmHg (85-108) Arterial Blood HCO3 25 mmol/L (21-28) 27 mmol/L (21-28) Arterial Blood Base Excess -1 mmol/L (-3-3) 1 mmol/L (-3-3) FiO2 100 100 Laboratory Tests Test 07/29/18 23:00 07/30/18 03:40 07/30/18 04:25 07/30/18 04:58 O2 Saturation 67 % (92-99) 96 % (92-99) 90 % (92-99) Arterial Blood pH 7.31 (7.35-7.45) 7.31 (7.35-7.45) 7.34 (7.35-7.45) Arterial Blood pCO2 at Patient Temp 50 mmHg (35-46) 54 mmHg (35-46) 48 mmHg (35-46) Arterial Blood pO2 at Patient Temp < 42 mmHg (85-108) 87 mmHg (85-108) 59 mmHg (85-108) Arterial Blood HCO3 25 mmol/L (21-28) 27 mmol/L (21-28) 25 mmol/L (21-28) Arterial Blood Base Excess -2 mmol/L (-3-3) -1 mmol/L (-3-3) -1 mmol/L (-3-3) FiO2 50.0 100 100 White Blood Count 26.5 x10^3/uL (4.0-11.0) Red Blood Count 5.07 x10^6/uL (3.50-5.40) Hemoglobin 14.0 g/dL (12.0-15.5) Hematocrit 42.1 % (36.0-47.0) Mean Corpuscular Volume 83 fL (79-100) Mean Corpuscular Hemoglobin 28 pg (25-35) Mean Corpuscular Hemoglobin Concent 33 g/dL (31-37) Red Cell Distribution Width 14.4 % (11.5-14.5) Platelet Count 246 x10^3/uL (140-400) Neutrophils (%) (Auto) 85 % (31-73) Lymphocytes (%) (Auto) 8 % (24-48) Monocytes (%) (Auto) 7 % (0-9) Eosinophils (%) (Auto) 0 % (0-3) Basophils (%) (Auto) 0 % (0-3) Neutrophils # (Auto) 22.5 x10^3uL (1.8-7.7) Lymphocytes # (Auto) 2.1 x10^3/uL (1.0-4.8) Monocytes # (Auto) 1.9 x10^3/uL (0.0-1.1) Eosinophils # (Auto) 0.0 x10^3/uL (0.0-0.7) Basophils # (Auto) 0.0 x10^3/uL (0.0-0.2) Segmented Neutrophils % 88 % (35-66) Band Neutrophils % 3 % (0-9) Lymphocytes % 8 % (24-48) Monocytes % 1 % (0-10) Platelet Estimate Adequate (ADEQUATE) Sodium Level 136 mmol/L (136-145) Potassium Level 5.0 mmol/L (3.5-5.1) Chloride Level 101 mmol/L (98-107) Carbon Dioxide Level 28 mmol/L (21-32) Anion Gap 7 (6-14) Blood Urea Nitrogen 13 mg/dL (7-20) Creatinine 0.8 mg/dL (0.6-1.0) Estimated GFR (Cockcroft-Gault) 84.2 Glucose Level 126 mg/dL (70-99) Calcium Level 9.1 mg/dL (8.5-10.1) Test 07/30/18 08:25 O2 Saturation 96 % (92-99) Arterial Blood pH 7.37 (7.35-7.45) Arterial Blood pCO2 at Patient Temp 48 mmHg (35-46) Arterial Blood pO2 at Patient Temp 79 mmHg (85-108) Arterial Blood HCO3 27 mmol/L (21-28) Arterial Blood Base Excess 1 mmol/L (-3-3) FiO2 100 Medications Active Scripts Medications Dose Route/Sig Max Daily Dose Days Date Category Dose Instructions Topiramate 25 Mg Tablet 1 Tab PO HS 07/28/18 Reported Phentermine Hcl 37.5 Mg Capsule 1 Cap PO DAILYWBKFT 07/28/18 Reported Metformin Hcl 500 Mg Tablet 500 Mg PO BIDWMEALS 07/28/18 Reported Motrin Ib (Ibuprofen) 200 Mg Tablet 800 Mg PO Q8H PRN 08/15/17 Rx Tessalon Perle (Benzonatate) 100 Mg Capsule 100 Mg PO TID PRN 01/11/17 Rx Prednisone 20 Mg Tablet 40 Mg PO DAILY 08/06/16 Rx START MEDICATIONS ON 08/07/2016 Medrol (Methylprednisolone) 4 Mg Tab.ds.pk 1 Pkg PO UD 11/16/14 Rx Levaquin (Levofloxacin) 750 Mg Tablet 750 Mg PO DAILY06 11/16/14 Rx Advair 250-50 Diskus (Fluticasone/Salmeterol) 1 Puff Puff 1 Puff INH BID 11/16/14 Rx Escitalopram Oxalate 20 Mg Tablet 1 Tab PO DAILY 11/09/14 Reported Xanax (Alprazolam) 0.25 Mg Tablet 0.25 Mg PO PRN Q6HRS PRN 11/09/14 Reported Comments CXR diffuse lung infiltrates Impression . 1. Progressive hypoxic respiratory failure requiring mechanical ventilation 07/30. suspect ARDS/ diffuse pneumonia 2. Acute exacerbation of chronic obstructive pulmonary disease with an asthma component. 3. Diffuse lung infiltrates, suspect diffuse lung pneumonia/ ARDS 4. Morbid obesity, body mass index of 40. 5. H/O Anxiety/panic attacks. 6. Status post cholecystectomy. Plan . 1. AC mode, high flow oxygen/ increase PEEP to 8 2. Nebulized treatments. increase q 4 hr, pulmicort, add solumedrol 3. sed rate 4. Bronch once oxygen requirement improves 5. BS Abx 6. obtain echo 7. mild diuresis 8. start enteral nutrition 9. DVT prophylaxis d/w / RN/RT CCT 35 min MINI ORTIZ MD Jul 30, 2018 10:06
[2018-07-30] MEDS: PANTOPRAZOLE IV PUSH 40 MG VIAL. IVP SCH (10:27)
[2018-07-30] MEDS: CITALOPRAM 20 MG TABLET. PO SCH (10:27)
[2018-07-30] MEDS ORDERED: VANCOMYCIN 2 GM in IV NORMAL SALINE 500ML BAG 500 ML IV ONE (10:30)
[2018-07-30] MEDS: AZITHROMYCIN 250 MG TABLET. PO SCH (10:30)
[2018-07-30] MEDS: PIPERACILLIN/TAZOBACTAM 3.375 GM in IV NORMAL SALINE 50ML 50 ML IV SCH ×2 (13:43→17:37)
[2018-07-30] MEDS: methylPREDNISolone SOD SUCC PF 125 MG/2 ML VIAL. IV SCH ×2 (13:45→21:31)
--- NOTE | 2018-07-30 13:48 | PDOC ---
PROGRESS NOTES Chief Complaint Chief Complaint progressive acute hypoxia, respiratory failure, req. intubation sepsis, pneumonia EZ, acute hypoxic resp failure copd/asthma exacerbation smoker morbid obesity, BMI 41 History of Present Illness History of Present Illness decline in resp fxn overnight, transferred to ICU then resp rate increaed, hypoxia, intubated around midnight now on vent, supportive care Vitals Vitals Vital Signs Date Time Temp Pulse Resp B/P (MAP) Pulse Ox O2 Delivery O2 Flow Rate FiO2 07/30/18 13:00 107 18 120/65 (83) 95 07/30/18 12:02 Ventilator 07/30/18 12:00 100.0 100.0 07/30/18 12:00 15.0 Physical Exam General: moderate distress, Other (sedated) Heart: Regular rate, Normal S1, Normal S2 Lungs: Wheezing (bilat mild wheezing), Other Abdomen: Normal bowel sounds, Soft Extremities: No cyanosis, No edema, Normal pulses Skin: No rashes Labs LABS Laboratory Tests Test 07/29/18 23:00 07/30/18 03:40 07/30/18 04:25 07/30/18 04:58 O2 Saturation 67 % (92-99) 96 % (92-99) 90 % (92-99) Arterial Blood pH 7.31 (7.35-7.45) 7.31 (7.35-7.45) 7.34 (7.35-7.45) Arterial Blood pCO2 at Patient Temp 50 mmHg (35-46) 54 mmHg (35-46) 48 mmHg (35-46) Arterial Blood pO2 at Patient Temp < 42 mmHg (85-108) 87 mmHg (85-108) 59 mmHg (85-108) Arterial Blood HCO3 25 mmol/L (21-28) 27 mmol/L (21-28) 25 mmol/L (21-28) Arterial Blood Base Excess -2 mmol/L (-3-3) -1 mmol/L (-3-3) -1 mmol/L (-3-3) FiO2 50.0 100 100 White Blood Count 26.5 x10^3/uL (4.0-11.0) Red Blood Count 5.07 x10^6/uL (3.50-5.40) Hemoglobin 14.0 g/dL (12.0-15.5) Hematocrit 42.1 % (36.0-47.0) Mean Corpuscular Volume 83 fL (79-100) Mean Corpuscular Hemoglobin 28 pg (25-35) Mean Corpuscular Hemoglobin Concent 33 g/dL (31-37) Red Cell Distribution Width 14.4 % (11.5-14.5) Platelet Count 246 x10^3/uL (140-400) Neutrophils (%) (Auto) 85 % (31-73) Lymphocytes (%) (Auto) 8 % (24-48) Monocytes (%) (Auto) 7 % (0-9) Eosinophils (%) (Auto) 0 % (0-3) Basophils (%) (Auto) 0 % (0-3) Neutrophils # (Auto) 22.5 x10^3uL (1.8-7.7) Lymphocytes # (Auto) 2.1 x10^3/uL (1.0-4.8) Monocytes # (Auto) 1.9 x10^3/uL (0.0-1.1) Eosinophils # (Auto) 0.0 x10^3/uL (0.0-0.7) Basophils # (Auto) 0.0 x10^3/uL (0.0-0.2) Segmented Neutrophils % 88 % (35-66) Band Neutrophils % 3 % (0-9) Lymphocytes % 8 % (24-48) Monocytes % 1 % (0-10) Platelet Estimate Adequate (ADEQUATE) Sodium Level 136 mmol/L (136-145) Potassium Level 5.0 mmol/L (3.5-5.1) Chloride Level 101 mmol/L (98-107) Carbon Dioxide Level 28 mmol/L (21-32) Anion Gap 7 (6-14) Blood Urea Nitrogen 13 mg/dL (7-20) Creatinine 0.8 mg/dL (0.6-1.0) Estimated GFR (Cockcroft-Gault) 84.2 Glucose Level 126 mg/dL (70-99) Calcium Level 9.1 mg/dL (8.5-10.1) Test 07/30/18 08:25 07/30/18 10:30 O2 Saturation 96 % (92-99) Arterial Blood pH 7.37 (7.35-7.45) Arterial Blood pCO2 at Patient Temp 48 mmHg (35-46) Arterial Blood pO2 at Patient Temp 79 mmHg (85-108) Arterial Blood HCO3 27 mmol/L (21-28) Arterial Blood Base Excess 1 mmol/L (-3-3) FiO2 100 Erythrocyte Sedimentation Rate 43 (0-25) Assessment and Plan Assessmemt and Plan Problems Medical Problems: (1) Pneumonia Status: Acute Comment Review of Relevant I have reviewed the following items [place] (where applicable) has been applied. Labs Laboratory Tests Test 07/29/18 04:10 07/29/18 23:00 07/30/18 03:40 07/30/18 04:25 White Blood Count 12.4 x10^3/uL (4.0-11.0) 26.5 x10^3/uL (4.0-11.0) Red Blood Count 5.02 x10^6/uL (3.50-5.40) 5.07 x10^6/uL (3.50-5.40) Hemoglobin 13.5 g/dL (12.0-15.5) 14.0 g/dL (12.0-15.5) Hematocrit 41.1 % (36.0-47.0) 42.1 % (36.0-47.0) Mean Corpuscular Volume 82 fL (79-100) 83 fL (79-100) Mean Corpuscular Hemoglobin 27 pg (25-35) 28 pg (25-35) Mean Corpuscular Hemoglobin Concent 33 g/dL (31-37) 33 g/dL (31-37) Red Cell Distribution Width 14.1 % (11.5-14.5) 14.4 % (11.5-14.5) Platelet Count 223 x10^3/uL (140-400) 246 x10^3/uL (140-400) Neutrophils (%) (Auto) 75 % (31-73) 85 % (31-73) Lymphocytes (%) (Auto) 17 % (24-48) 8 % (24-48) Monocytes (%) (Auto) 7 % (0-9) 7 % (0-9) Eosinophils (%) (Auto) 1 % (0-3) 0 % (0-3) Basophils (%) (Auto) 0 % (0-3) 0 % (0-3) Neutrophils # (Auto) 9.2 x10^3uL (1.8-7.7) 22.5 x10^3uL (1.8-7.7) Lymphocytes # (Auto) 2.1 x10^3/uL (1.0-4.8) 2.1 x10^3/uL (1.0-4.8) Monocytes # (Auto) 0.9 x10^3/uL (0.0-1.1) 1.9 x10^3/uL (0.0-1.1) Eosinophils # (Auto) 0.1 x10^3/uL (0.0-0.7) 0.0 x10^3/uL (0.0-0.7) Basophils # (Auto) 0.0 x10^3/uL (0.0-0.2) 0.0 x10^3/uL (0.0-0.2) O2 Saturation 67 % (92-99) 96 % (92-99) Arterial Blood pH 7.31 (7.35-7.45) 7.31 (7.35-7.45) Arterial Blood pCO2 at Patient Temp 50 mmHg (35-46) 54 mmHg (35-46) Arterial Blood pO2 at Patient Temp < 42 mmHg (85-108) 87 mmHg (85-108) Arterial Blood HCO3 25 mmol/L (21-28) 27 mmol/L (21-28) Arterial Blood Base Excess -2 mmol/L (-3-3) -1 mmol/L (-3-3) FiO2 50.0 100 Segmented Neutrophils % 88 % (35-66) Band Neutrophils % 3 % (0-9) Lymphocytes % 8 % (24-48) Monocytes % 1 % (0-10) Platelet Estimate Adequate (ADEQUATE) Sodium Level 136 mmol/L (136-145) Potassium Level 5.0 mmol/L (3.5-5.1) Chloride Level 101 mmol/L (98-107) Carbon Dioxide Level 28 mmol/L (21-32) Anion Gap 7 (6-14) Blood Urea Nitrogen 13 mg/dL (7-20) Creatinine 0.8 mg/dL (0.6-1.0) Estimated GFR (Cockcroft-Gault) 84.2 Glucose Level 126 mg/dL (70-99) Calcium Level 9.1 mg/dL (8.5-10.1) Test 07/30/18 04:58 07/30/18 08:25 07/30/18 10:30 O2 Saturation 90 % (92-99) 96 % (92-99) Arterial Blood pH 7.34 (7.35-7.45) 7.37 (7.35-7.45) Arterial Blood pCO2 at Patient Temp 48 mmHg (35-46) 48 mmHg (35-46) Arterial Blood pO2 at Patient Temp 59 mmHg (85-108) 79 mmHg (85-108) Arterial Blood HCO3 25 mmol/L (21-28) 27 mmol/L (21-28) Arterial Blood Base Excess -1 mmol/L (-3-3) 1 mmol/L (-3-3) FiO2 100 100 Erythrocyte Sedimentation Rate 43 (0-25) Laboratory Tests Test 07/29/18 23:00 07/30/18 03:40 07/30/18 04:25 07/30/18 04:58 O2 Saturation 67 % (92-99) 96 % (92-99) 90 % (92-99) Arterial Blood pH 7.31 (7.35-7.45) 7.31 (7.35-7.45) 7.34 (7.35-7.45) Arterial Blood pCO2 at Patient Temp 50 mmHg (35-46) 54 mmHg (35-46) 48 mmHg (35-46) Arterial Blood pO2 at Patient Temp < 42 mmHg (85-108) 87 mmHg (85-108) 59 mmHg (85-108) Arterial Blood HCO3 25 mmol/L (21-28) 27 mmol/L (21-28) 25 mmol/L (21-28) Arterial Blood Base Excess -2 mmol/L (-3-3) -1 mmol/L (-3-3) -1 mmol/L (-3-3) FiO2 50.0 100 100 White Blood Count 26.5 x10^3/uL (4.0-11.0) Red Blood Count 5.07 x10^6/uL (3.50-5.40) Hemoglobin 14.0 g/dL (12.0-15.5) Hematocrit 42.1 % (36.0-47.0) Mean Corpuscular Volume 83 fL (79-100) Mean Corpuscular Hemoglobin 28 pg (25-35) Mean Corpuscular Hemoglobin Concent 33 g/dL (31-37) Red Cell Distribution Width 14.4 % (11.5-14.5) Platelet Count 246 x10^3/uL (140-400) Neutrophils (%) (Auto) 85 % (31-73) Lymphocytes (%) (Auto) 8 % (24-48) Monocytes (%) (Auto) 7 % (0-9) Eosinophils (%) (Auto) 0 % (0-3) Basophils (%) (Auto) 0 % (0-3) Neutrophils # (Auto) 22.5 x10^3uL (1.8-7.7) Lymphocytes # (Auto) 2.1 x10^3/uL (1.0-4.8) Monocytes # (Auto) 1.9 x10^3/uL (0.0-1.1) Eosinophils # (Auto) 0.0 x10^3/uL (0.0-0.7) Basophils # (Auto) 0.0 x10^3/uL (0.0-0.2) Segmented Neutrophils % 88 % (35-66) Band Neutrophils % 3 % (0-9) Lymphocytes % 8 % (24-48) Monocytes % 1 % (0-10) Platelet Estimate Adequate (ADEQUATE) Sodium Level 136 mmol/L (136-145) Potassium Level 5.0 mmol/L (3.5-5.1) Chloride Level 101 mmol/L (98-107) Carbon Dioxide Level 28 mmol/L (21-32) Anion Gap 7 (6-14) Blood Urea Nitrogen 13 mg/dL (7-20) Creatinine 0.8 mg/dL (0.6-1.0) Estimated GFR (Cockcroft-Gault) 84.2 Glucose Level 126 mg/dL (70-99) Calcium Level 9.1 mg/dL (8.5-10.1) Test 07/30/18 08:25 07/30/18 10:30 O2 Saturation 96 % (92-99) Arterial Blood pH 7.37 (7.35-7.45) Arterial Blood pCO2 at Patient Temp 48 mmHg (35-46) Arterial Blood pO2 at Patient Temp 79 mmHg (85-108) Arterial Blood HCO3 27 mmol/L (21-28) Arterial Blood Base Excess 1 mmol/L (-3-3) FiO2 100 Erythrocyte Sedimentation Rate 43 (0-25) Microbiology 07/28/18 Blood Culture - Preliminary, Resulted NO GROWTH AFTER 2 DAYS Medications Current Medications Prednisone (Prednisone) 50 mg 1X ONCE PO Last administered on 07/28/18at 06:47; Start 07/28/18 at 07:00; Stop 07/28/18 at 07:01; Status DC Albuterol/ Ipratropium (Duoneb) 3 ml 1X ONCE NEB Last administered on at 06:37; Start 07/28/18 at 07:00; Stop 07/28/18 at 07:01; Status DC Sodium Chloride 1,000 ml @ 1,000 mls/hr 1X ONCE IV Last administered on at 07:03; Start 07/28/18 at 07:00; Stop 07/28/18 at 07:59; Status DC Albuterol Sulfate (Ventolin Neb Soln) 10 mg 1X ONCE CONT NEB Last administered on 07/28/18at 07:25; Start 07/28/18 at 07:00; Stop 07/28/18 at 07:02; Status DC Magnesium Sulfate 50 ml @ 25 mls/hr 1X ONCE IV Last administered on 07/28/18at 07:41; Start 07/28/18 at 07:15; Stop 07/28/18 at 09:14; Status DC Ceftriaxone Sodium 50 ml @ 100 mls/hr 1X ONCE IV Last administered on at 08:52; Start 07/28/18 at 08:15; Stop 07/28/18 at 08:44; Status DC Azithromycin 250 ml @ 250 mls/hr 1X ONCE IV Last administered on 07/28/18at 09: 20; Start 07/28/18 at 08:15; Stop 07/28/18 at 09:14; Status DC Acetaminophen/ Hydrocodone Bitart (Lortab 5/325) 2 tab 1X ONCE PO Last administered on 07/28/18at 08:49; Start 07/28/18 at 08:45; Stop 07/28/18 at 08:46; Status DC Ondansetron HCl (Zofran) 4 mg PRN Q8HRS PRN IV NAUSEA/VOMITING Last administered on 07/28/18at 22:40; Start 07/28/18 at 08:45; Stop 07/29/18 at 08:44; Status DC Acetaminophen (Tylenol) 650 mg PRN Q4HRS PRN PO FEVER Last administered on at 22:40; Start 07/28/18 at 08:45; Stop 07/29/18 at 08:44; Status DC Albuterol/ Ipratropium (Duoneb) 3 ml RTQID NEB Last administered on 07/29/18at 07 :29; Start 07/28/18 at 12:00; Stop 07/29/18 at 10:30; Status DC Acetaminophen/ Hydrocodone Bitart (Lortab 5/325) 2 tab Q6H PRN PO SEVERE PAIN Last administered on 07/29/18at 23:09; Start 07/28/18 at 08:45 Prednisone (Prednisone) 60 mg DAILY PO ; Start 07/29/18 at 09:00; Stop 07/29/18 at 09:00; Status DC Budesonide (Pulmicort) 0.5 mg RTBID NEB Last administered on 07/30/18at 08:22; Start 07/28/18 at 20:00 Budesonide (Pulmicort) 0.5 mg 1X ONCE NEB Last administered on 07/28/18at 11:06 ; Start 07/28/18 at 09:30; Stop 07/28/18 at 09:31; Status DC Albuterol Sulfate (Ventolin Neb Soln) 2.5 mg PRN Q4HRS PRN NEB SHORTNESS OF BREATH; Start 07/28/18 at 09:30 Azithromycin (Zithromax) 250 mg DAILY PO Last administered on 07/30/18at 10:30; Start 07/28/18 at 10:00 Alprazolam (Xanax) 0.25 mg PRN Q6HRS PRN PO ANXIETY / AGITATION Last administered on 07/29/18at 23:13; Start 07/28/18 at 12:45 Ibuprofen (Motrin) 800 mg PRN Q8HRS PRN PO PAIN MILD/INFLAMMATION; Start at 12:45 Benzonatate (Tessalon Perle) 100 mg PRN TID PRN PO COUGH 2ND CHOICE; Start 07/28 at 14:00 Citalopram Hydrobromide (CeleXA) 40 mg DAILY PO Last administered on 07/30/18at 10:27; Start 07/28/18 at 13:00 Metformin HCl (Glucophage) 500 mg BIDWMEALS PO Last administered on 07/29/18at 10 :07; Start 07/28/18 at 17:00 Promethazine HCl/ Codeine (Phenergan With Codeine) 5 ml PRN Q6HRS PRN PO COUGH 1ST CHOICE Last administered on 07/29/18at 16:25; Start 07/28/18 at 15:30 Guaifenesin (MUCINEX ER with DM) 1 tab BID PO Last administered on 07/29/18at 21: 44; Start 07/28/18 at 21:00 Lactobacillus Rhamnosus (Culturelle) 1 cap BID PO Last administered on at 21:44; Start 07/28/18 at 21:00; Stop 07/30/18 at 09:48; Status DC Prednisone (Prednisone) 30 mg DAILY PO Last administered on 07/29/18at 10:06; Start 07/29/18 at 09:00 Ceftriaxone Sodium 1 gm/ Dextrose 50 ml @ 100 mls/hr Q24H IV ; Start 07/29/18 at 09:00; Status UNV Ceftriaxone Sodium (Rocephin) 1 gm Q24H IVP Last administered on 07/29/18at 10:06 ; Start 07/29/18 at 09:00; Stop 07/30/18 at 10:07; Status DC Albuterol/ Ipratropium (Duoneb) 3 ml Q4HRS NEB Last administered on 07/30/18at 12 :02; Start 07/29/18 at 12:00 Budesonide (Pulmicort) 0.5 mg RTBID NEB ; Start 07/29/18 at 20:00; Status UNV Famotidine (Pepcid) 20 mg QHS PO Last administered on 07/29/18at 21:44; Start 07/29/18 at 21:00; Stop 07/30/18 at 10:10; Status DC Enoxaparin Sodium (Lovenox 40mg Syringe) 40 mg Q12H SQ Last administered on 07/30at 13:45; Start 07/29/18 at 12:30 Acetaminophen (Tylenol) 650 mg PRN Q6HRS PRN PO FEVER; Start 07/29/18 at 11:45 Ondansetron HCl (Zofran) 4 mg PRN Q6HRS PRN IV NAUSEA/VOMITING Last administered on 07/29/18at 15:23; Start 07/29/18 at 11:45 Morphine Sulfate (Morphine Sulfate) 2 mg PRN Q2HR PRN IV MODERATE TO SEVERE PAIN; Start 07/29/18 at 11:45 Tramadol HCl (Ultram) 50 mg PRN Q6HRS PRN PO MODERATE PAIN; Start 07/29/18 at 11 :45 Docusate Sodium (Colace) 100 mg PRN DAILY PRN PO CONSTIPATION; Start 07/29/18 at 11:45 Haloperidol Lactate (Haldol Inj) 2 mg PRN Q2HR PRN IVP AGITATION Last administered on 07/30/18at 03:24; Start 07/30/18 at 01:30 Lorazepam (Ativan) 0.25 mg PRN Q1HR PRN IV ANXIETY / AGITATION Last administered on 07/30/18at 03:30; Start 07/30/18 at 01:30 Propofol 100 ml @ As Directed STK-MED ONCE IV ; Start 07/30/18 at 04:12; Stop at 04:13; Status DC Etomidate (Amidate) 20 mg STK-MED ONCE IV ; Start 07/30/18 at 04:18; Stop at 04:19; Status DC Propofol 100 ml @ 0 mls/hr CONT PRN IV PER PROTOCOL Last administered on at 13:16; Start 07/30/18 at 04:30 Chlorhexidine Gluconate (Peridex) 15 ml BID MM Last administered on 07/30/18at 09 :00; Start 07/30/18 at 09:00 Midazolam HCl 100 ml @ 0 mls/hr CONT PRN IV PER PROTOCOL; Start 07/30/18 at 04: 30 Piperacillin Sod/ Tazobactam Sod (Zosyn Per Pharmacy) 1 each PRN DAILY PRN MC SEE COMMENTS; Start 07/30/18 at 10:00 Vancomycin HCl (Vanco Per Pharmacy) 1 each PRN DAILY PRN MC SEE COMMENTS; Start 07/30/18 at 10:00 Methylprednisolone Sodium Succinate (SOLU-Medrol 125MG VIAL) 60 mg Q8HRS IV Last administered on 07/30/18at 13:45; Start 07/30/18 at 14:00 Pantoprazole Sodium (PROTONIX VIAL for IV PUSH) 40 mg DAILYAC IVP Last administered on 07/30/18at 10:27; Start 07/30/18 at 10:30 Piperacillin Sod/ Tazobactam Sod 3.375 gm/Sodium Chloride 50 ml @ 100 mls/hr Q6HRS IV Last administered on 07/30/18at 13:43; Start 07/30/18 at 12:00 Vancomycin HCl 2 gm/Sodium Chloride 500 ml @ 250 mls/hr 1X ONCE IV Last administered on 07/30/18at 10:31; Start 07/30/18 at 10:30; Stop 07/30/18 at 12:29; Status DC Active Scripts Active Motrin Ib (Ibuprofen) 200 Mg Tablet 800 Mg PO Q8H PRN Tessalon Perle (Benzonatate) 100 Mg Capsule 100 Mg PO TID PRN Prednisone 20 Mg Tablet 40 Mg PO DAILY START MEDICATIONS ON 08/07/2016 Medrol (Methylprednisolone) 4 Mg Tab.ds.pk 1 Pkg PO UD Levaquin (Levofloxacin) 750 Mg Tablet 750 Mg PO DAILY06 Advair 250-50 Diskus (Fluticasone/Salmeterol) 1 Puff Puff 1 Puff INH BID Reported Topiramate 25 Mg Tablet 1 Tab PO HS Phentermine Hcl 37.5 Mg Capsule 1 Cap PO DAILYWBKFT Metformin Hcl 500 Mg Tablet 500 Mg PO BIDWMEALS Escitalopram Oxalate 20 Mg Tablet 1 Tab PO DAILY Xanax (Alprazolam) 0.25 Mg Tablet 0.25 Mg PO PRN Q6HRS PRN Vitals/I & O Vital Sign - Last 24 Hours 07/29/18 07/29/18 07/29/18 07/29/18 14:56 15:00 15:51 16:00 Temp 99.1 99.1 Pulse 97 Resp 18 20 22 B/P (MAP) 121/85 (97) Pulse Ox 90 86 86 O2 Delivery Venturi Mask Venturi Mask Venturi Mask Venturi Mask O2 Flow Rate 15.0 15.0 12.0 12.0 07/29/18 07/29/18 07/29/18 07/29/18 19:00 20:00 20:02 20:09 Temp 97.3 97.3 Pulse 116 Resp 26 B/P (MAP) 141/86 (104) Pulse Ox 91 O2 Delivery Venturi Mask Venturi Mask Venturi Mask Venturi Mask O2 Flow Rate 12.0 15.0 15.0 15.0 07/29/18 07/29/18 07/29/18 07/29/18 22:17 22:30 23:06 23:09 Temp 97.5 97.5 Pulse 120 Resp 49 22 B/P (MAP) 144/93 (110) Pulse Ox 79 O2 Delivery Venturi Mask Venturi Mask Venturi Mask NonRebreather Mask O2 Flow Rate 15.0 12.0 15.0 07/29/18 07/30/18 07/30/18 07/30/18 23:10 00:30 00:30 00:39 Temp 99.4 99.4 Pulse 116 Resp 44 B/P (MAP) 138/81 (100) Pulse Ox 90 93 91 O2 Delivery BiPAP/CPAP BiPAP/CPAP Bi-pap BiPAP/CPAP 07/30/18 07/30/18 07/30/18 07/30/18 00:45 01:00 01:30 02:00 Pulse 106 102 96 88 Resp 36 40 51 35 B/P (MAP) 140/76 (97) 112/70 (84) 129/62 (84) 132/75 (94) Pulse Ox 95 97 95 96 O2 Delivery BiPAP/CPAP BiPAP/CPAP BiPAP/CPAP BiPAP/CPAP 07/30/18 07/30/18 07/30/18 07/30/18 03:00 03:46 04:00 04:00 Pulse 88 110 Resp 46 60 B/P (MAP) 124/78 (93) 173/106 (128) Pulse Ox 94 94 88 O2 Delivery BiPAP/CPAP BiPAP/CPAP Bi-pap BiPAP/CPAP 07/30/18 07/30/18 07/30/18 07/30/18 04:15 04:20 04:56 05:00 Temp 98.4 98.4 Pulse 116 110 106 Resp 18 22 18 B/P (MAP) 171/82 (111) 56/86 (76) 134/83 (100) Pulse Ox 89 85 91 93 O2 Delivery Ventilator Ventilator Ventilator Ventilator 07/30/18 07/30/18 07/30/18 07/30/18 06:00 07:00 08:00 08:00 Temp 98.1 98.1 Pulse 106 106 Resp 18 18 B/P (MAP) 120/66 (84) 108/63 (78) Pulse Ox 94 94 O2 Delivery Ventilator Ventilator Mechanical Ventilator O2 Flow Rate 15.0 15.0 07/30/18 07/30/18 07/30/18 07/30/18 08:15 09:00 09:35 10:00 Pulse 107 106 Resp 18 18 B/P (MAP) 113/59 (77) 117/68 (84) Pulse Ox 96 95 95 96 O2 Delivery Ventilator Ventilator Ventilator 07/30/18 07/30/18 07/30/18 07/30/18 11:00 12:00 12:00 12:00 Temp 100.0 100.0 Pulse 106 105 Resp 18 18 B/P (MAP) 116/66 (83) 123/71 (88) Pulse Ox 98 94 O2 Delivery Ventilator Mechanical Ventilator Ventilator O2 Flow Rate 1.0 15.0 07/30/18 07/30/18 12:02 13:00 Pulse 107 Resp 18 B/P (MAP) 120/65 (83) Pulse Ox 94 95 O2 Delivery Ventilator Intake and Output 07/29/18 07/29/18 07/30/18 15:00 23:00 07:00 Intake Total 600 ml 50 ml Output Total 400 ml 0 ml Balance 200 ml 50 ml RAMON RUST MD Jul 30, 2018 13:48
--- NOTE | 2018-07-30 14:09 | RAD ---
Portable chest, 07/30/2018, 1:24 PM: HISTORY: Check central line placement Comparison is made to a study from earlier the same day. A right jugular central venous catheter has been inserted extending into the mid right atrium. The ET tube tip lies well above the tom. An NG tube extends into the stomach. The heart size is unchanged. There are moderate patchy bilateral pulmonary infiltrates with poor definition of the underlying pulmonary vascularity. The pattern suggests pulmonary edema. There has been slight interval improvement, such as in the right upper lobe. No pneumothorax or definite pleural fluid is seen. IMPRESSION: 1. Interval insertion of a right jugular central venous catheter extending into the mid right atrium. 2. The ET tube and NG tube are in satisfactory positions. 3. Moderate patchy bilateral pulmonary infiltrates have improved slightly since earlier in the day. Electronically signed by: Genaro Moreno MD (07/30/2018 2:06 PM) [facility]
--- NOTE | 2018-07-30 14:16 | RAD ---
Procedure: Ultrasound-guided placement of right internal jugular central venous catheter07/30/2018 2:12 PM Clinical Indication: vented patient, ARDS, poor peripheral access Discussion: The risks and benefits of the procedure were discussed the patient and/or their guest experience representative. Informed consent was obtained. A timeout procedure was performed. All elements of maximal sterile barrier technique including the use of a cap, mask, sterile gown, sterile gloves, large sterile sheet, appropriate hand hygiene, and 2% chlorhexidine for cutaneous antisepsis (or acceptable alternative antiseptic per current guidelines) were followed for this procedure. The patient was prepped and draped in the usual sterile fashion. Ultrasound interrogation of the right neck revealed patency and compressibility of the right internal jugular vein. A 21-gauge micropuncture was then used to gain access to this vein under ultrasound guidance. A hard copy ultrasound image was recorded. A guidewire was advanced centrally. 5 Serbian sheath was placed. Over a wire following dilatation, a triple-lumen central venous catheter was advanced centrally. Catheter was found to flush and aspirate normally. Follow-up chest radiograph demonstrates tip at the cavoatrial junction. Catheter secured in place and a sterile dressing was applied. No immediate complications were identified. Impression: Successful ultrasound-guided placement of right internal jugular triple-lumen central venous catheter
[2018-07-30] MEDS: VANCOMYCIN PER PHARMACY MC PRN (15:09)
--- NOTE | 2018-07-30 16:19 | CARD ---
MR#: [id number] Date of Study: 07/30/2018 Ordering Physician: MINI ORTIZ, Referring Physician: Bony MEYER: Arash Hill SWAPNA APPROVED REPORT EXAM: Two-dimensional and M-mode echocardiogram with Doppler and color Doppler. Other Information Quality : Average Technically limited study due to body habitus. INDICATION Dyspnea 2D DIMENSIONS RVDd3.0 (2.9-3.5cm)Left Atrium(2D)3.4 (1.6-4.0cm) IVSd1.0 (0.7-1.1cm)Aortic Root(2D)2.6 (2.0-3.7cm) LVDd5.0 (3.9-5.9cm)LVOT Diameter2.0 (1.8-2.4cm) PWd1.0 (0.7-1.1cm)LVDs3.6 (2.5-4.0cm) FS (%) 29.0 %SV65.7 ml LVEF(%)55.5 (>50%) Aortic Valve AoV Peak Scott.130.2cm/sAoV VTI18.3cm AO Peak GR.6.8mmHgLVOT Peak Scott.112.1cm/s LVOT VTI 17.05cmAO Mean GR.5mmHg JACQUELYN (VMAX)2.06wk6BRI (VTI)3.07cm2 Mitral Valve MV E Jiywqohq67.5cm/sMV DECEL [id number] MV A Luegbfbw37.3cm/sMV E Mean Gr.2mmHg MV [id number]/A Ratio1.2 MV A Vbstlysf01esNPX (PHT)2.96cm2 TDI E/Lateral E'10.1E/Medial E'5.7 Pulmonary Valve PV Peak Yiuuaueo307.9cm/sPV Peak Grad.4mmHg RVOT VTI15.1cm Tricuspid Valve TR P. Izbqcplt802hx/sTR Peak Gr.34mmHg Pulmonary Vein S1 Uoligxno46.2cm/sD2 Rqanzckz75.3cm/s LEFT VENTRICLE The left ventricle is normal size. There is normal left ventricular wall thickness. The left ventricu lar systolic function is normal and the ejection fraction is within normal range. EF 55% There is sony ssly normal LV segmental wall motion. Technically limited images. The left ventricular diastolic func tion and filling is normal for age. RIGHT VENTRICLE The right ventricle is normal size. There is normal right ventricular wall thickness. The right ventr icular systolic function is normal. ATRIA The left atrium size is normal. The right atrium size is normal. The interatrial septum is intact wit h no evidence for an atrial septal defect or patent foramen ovale as noted on 2-D or Doppler imaging. AORTIC VALVE The aortic valve is not well visualized. Doppler and Color Flow revealed no significant aortic regurg itation. There is no significant aortic valvular stenosis. MITRAL VALVE The mitral valve is normal in structure and function. There is no mitral valve stenosis. Doppler and Color Flow revealed no mitral valve regurgitation noted. TRICUSPID VALVE Not well visualized. Doppler and Color Flow revealed mild tricuspid regurgitation. The PA pressure wa s estimated at 37 mmHg. There is no tricuspid valve stenosis. PULMONIC VALVE Doppler and Color Flow revealed no pulmonic valvular regurgitation. There is no pulmonic valvular sumaya nosis. GREAT VESSELS The aortic root is normal in size. The IVC is normal in size and collapses >50% with inspiration. PERICARDIAL EFFUSION There is no pleural effusion. There is no evidence of significant pericardial effusion. Critical Notification Critical Value: No <Conclusion> The left ventricular systolic function is normal and the ejection fraction is within normal range. EF 55% There is grossly normal LV segmental wall motion. Technically limited images. Doppler and Color Flow revealed mild tricuspid regurgitation. The PA pressure was estimated at 37 mm Hg. Signed by : Bill Pruett, Electronically Approved : 07/30/2018 16:19:00
[2018-07-30] MEDS ORDERED: DEXTROSE 50% 25 GM / 50ML DISP.SYRIN. IV PRN (17:45)
[2018-07-30] MEDS: VANCOMYCIN 1.5 GM in IV NORMAL SALINE 500ML BAG 500 ML IV SCH (21:32)
[2018-07-31] VITALS (23 sets, daily range): BP systolic 116–145; BP diastolic 57–74
[2018-07-31] MEDS: ENOXAPARIN 40 MG/0.4 ML SYRINGE. SQ SCH ×2 (00:15→12:03)
[2018-07-31] MEDS: PIPERACILLIN/TAZOBACTAM 3.375 GM in IV NORMAL SALINE 50ML 50 ML IV SCH ×4 (00:16→18:11)
[2018-07-31] MEDS: PROPOFOL 100 ML IV PRN ×8 (00:16→22:07)
[2018-07-31] MEDS: IPRATRPIUM/ALBUTEROL 0.5/2.5MG 3 ML NEBU. NEB SCH ×6 (03:12→23:44)
[2018-07-31] MEDS: MIDAZOLAM 100mg/100ml NS BAG 100 ML IV PRN (03:42)
[2018-07-31] MEDS: methylPREDNISolone SOD SUCC PF 125 MG/2 ML VIAL. IV SCH ×3 (05:37→21:47)
[2018-07-31] MEDS: VANCOMYCIN 1.5 GM in IV NORMAL SALINE 500ML BAG 500 ML IV SCH ×2 (05:37→14:10)
[2018-07-31] MEDS: metFORMIN 500 MG TABLET PO SCH (08:00)
[2018-07-31] MEDS ORDERED: INSULIN LISPRO 300 UNITS/3 ML INSULN.PEN. SQ SCH (08:00)
[2018-07-31] MEDS: BUDESONIDE 0.5 MG/2 ML NEBU. NEB SCH ×2 (08:17→19:37)
[2018-07-31 08:51] LABS: BASE EXCESS ABG 3 mmol/L (-3-3); HCO3 ABG 28 mmol/L (21-28); PCO2 ABG 43 mmHg (35-46); PO2 ABG 67 mmHg (85-108); SAT O2 ABG 94 % (92-99)
[2018-07-31] MEDS: AZITHROMYCIN 250 MG TABLET. PO SCH (09:26)
[2018-07-31] MEDS: guaiFENesin DM 600/30MG 1 TAB TAB.ER.12H PO SCH ×2 (09:26→09:45)
[2018-07-31] MEDS: CITALOPRAM 20 MG TABLET. PO SCH (09:26)
[2018-07-31] MEDS: CHLORHEXIDINE 0.12% 15 ML MOUTHWASH. MM SCH ×2 (09:26→21:48)
[2018-07-31] MEDS: PANTOPRAZOLE IV PUSH 40 MG VIAL. IVP SCH (09:26)
[2018-07-31] MEDS: HALOPERIDOL LACTATE 5 MG/ML VIAL. IVP PRN (09:26)
[2018-07-31 10:01] LABS: BASO % 0 % (0-3); EOS % 0 % (0-3); HEMATOCRIT 32.9 % (36.0-47.0); HEMOGLOBIN 10.9 g/dL (12.0-15.5); LYMPH # 0.8 x10^3/uL (1.0-4.8); LYMPH % 6 % (24-48); MEAN CORPUSCULAR HEMOGLOBIN 27 pg (25-35); MEAN CORPUSCULAR HGB CONC 33 g/dL (31-37); MEAN CORPUSCULAR VOLUME 81 fL (79-100); MONO # 0.8 x10^3/uL (0.0-1.1); MONO % 6 % (0-9); NEUT # 12.1 x10^3uL (1.8-7.7); NEUT % 88 % (31-73); PLATELET COUNT 197 x10^3/uL (140-400); RED BLOOD COUNT 4.03 x10^6/uL (3.50-5.40); RED CELL DISTRIBUTION WIDTH 13.9 % (11.5-14.5); WHITE BLOOD COUNT 13.8 x10^3/uL (4.0-11.0)
[2018-07-31 10:14] LABS: ALBUMIN 2.4 g/dL (3.4-5.0); ALBUMIN/GLOBULIN RATIO 0.6 (1.0-1.7); CALCIUM 8.9 mg/dL (8.5-10.1); CREATININE 0.6 mg/dL (0.6-1.0); GFR 117.4; POTASSIUM 3.5 mmol/L (3.5-5.1); TOTAL BILIRUBIN 0.5 mg/dL (0.2-1.0); TOTAL PROTEIN 6.6 g/dL (6.4-8.2)
--- NOTE | 2018-07-31 10:44 | PDOC ---
PULMONARY PROGRESS NOTES Subjective patient intubated 07/30 after progressive hypoxia and failed BIPAP intubated/ sedated ,on 70% FIO2/ 8 PEEP Vitals Vital Signs Date Time Temp Pulse Resp B/P (MAP) Pulse Ox O2 Delivery O2 Flow Rate FiO2 07/31/18 08:18 91 Ventilator 07/31/18 06:00 90 18 136/67 (90) 07/31/18 04:00 99.2 99.2 07/30/18 16:00 15.0 Lungs: Wheezing (resolved) Cardiovascular: S1 Abdomen: Soft Extremities: No Edema Skin: Warm Labs Laboratory Tests Test 07/29/18 23:00 07/30/18 03:40 07/30/18 04:25 07/30/18 04:58 O2 Saturation 67 % (92-99) 96 % (92-99) 90 % (92-99) Arterial Blood pH 7.31 (7.35-7.45) 7.31 (7.35-7.45) 7.34 (7.35-7.45) Arterial Blood pCO2 at Patient Temp 50 mmHg (35-46) 54 mmHg (35-46) 48 mmHg (35-46) Arterial Blood pO2 at Patient Temp < 42 mmHg (85-108) 87 mmHg (85-108) 59 mmHg (85-108) Arterial Blood HCO3 25 mmol/L (21-28) 27 mmol/L (21-28) 25 mmol/L (21-28) Arterial Blood Base Excess -2 mmol/L (-3-3) -1 mmol/L (-3-3) -1 mmol/L (-3-3) FiO2 50.0 100 100 White Blood Count 26.5 x10^3/uL (4.0-11.0) Red Blood Count 5.07 x10^6/uL (3.50-5.40) Hemoglobin 14.0 g/dL (12.0-15.5) Hematocrit 42.1 % (36.0-47.0) Mean Corpuscular Volume 83 fL (79-100) Mean Corpuscular Hemoglobin 28 pg (25-35) Mean Corpuscular Hemoglobin Concent 33 g/dL (31-37) Red Cell Distribution Width 14.4 % (11.5-14.5) Platelet Count 246 x10^3/uL (140-400) Neutrophils (%) (Auto) 85 % (31-73) Lymphocytes (%) (Auto) 8 % (24-48) Monocytes (%) (Auto) 7 % (0-9) Eosinophils (%) (Auto) 0 % (0-3) Basophils (%) (Auto) 0 % (0-3) Neutrophils # (Auto) 22.5 x10^3uL (1.8-7.7) Lymphocytes # (Auto) 2.1 x10^3/uL (1.0-4.8) Monocytes # (Auto) 1.9 x10^3/uL (0.0-1.1) Eosinophils # (Auto) 0.0 x10^3/uL (0.0-0.7) Basophils # (Auto) 0.0 x10^3/uL (0.0-0.2) Segmented Neutrophils % 88 % (35-66) Band Neutrophils % 3 % (0-9) Lymphocytes % 8 % (24-48) Monocytes % 1 % (0-10) Platelet Estimate Adequate (ADEQUATE) Sodium Level 136 mmol/L (136-145) Potassium Level 5.0 mmol/L (3.5-5.1) Chloride Level 101 mmol/L (98-107) Carbon Dioxide Level 28 mmol/L (21-32) Anion Gap 7 (6-14) Blood Urea Nitrogen 13 mg/dL (7-20) Creatinine 0.8 mg/dL (0.6-1.0) Estimated GFR (Cockcroft-Gault) 84.2 Glucose Level 126 mg/dL (70-99) Calcium Level 9.1 mg/dL (8.5-10.1) Test 07/30/18 08:25 07/30/18 10:30 07/30/18 13:00 07/31/18 09:01 O2 Saturation 96 % (92-99) Arterial Blood pH 7.37 (7.35-7.45) Arterial Blood pCO2 at Patient Temp 48 mmHg (35-46) Arterial Blood pO2 at Patient Temp 79 mmHg (85-108) Arterial Blood HCO3 27 mmol/L (21-28) Arterial Blood Base Excess 1 mmol/L (-3-3) FiO2 100 Erythrocyte Sedimentation Rate 43 (0-25) Nasal Screen MRSA (PCR) Negative (Negative) Glucose (Fingerstick) 149 mg/dL (70-99) Test 07/31/18 09:35 White Blood Count 13.8 x10^3/uL (4.0-11.0) Red Blood Count 4.03 x10^6/uL (3.50-5.40) Hemoglobin 10.9 g/dL (12.0-15.5) Hematocrit 32.9 % (36.0-47.0) Mean Corpuscular Volume 81 fL (79-100) Mean Corpuscular Hemoglobin 27 pg (25-35) Mean Corpuscular Hemoglobin Concent 33 g/dL (31-37) Red Cell Distribution Width 13.9 % (11.5-14.5) Platelet Count 197 x10^3/uL (140-400) Neutrophils (%) (Auto) 88 % (31-73) Lymphocytes (%) (Auto) 6 % (24-48) Monocytes (%) (Auto) 6 % (0-9) Eosinophils (%) (Auto) 0 % (0-3) Basophils (%) (Auto) 0 % (0-3) Neutrophils # (Auto) 12.1 x10^3uL (1.8-7.7) Lymphocytes # (Auto) 0.8 x10^3/uL (1.0-4.8) Monocytes # (Auto) 0.8 x10^3/uL (0.0-1.1) Eosinophils # (Auto) 0.0 x10^3/uL (0.0-0.7) Basophils # (Auto) 0.0 x10^3/uL (0.0-0.2) Sodium Level 140 mmol/L (136-145) Potassium Level 3.5 mmol/L (3.5-5.1) Chloride Level 103 mmol/L (98-107) Carbon Dioxide Level 29 mmol/L (21-32) Anion Gap 8 (6-14) Blood Urea Nitrogen 13 mg/dL (7-20) Creatinine 0.6 mg/dL (0.6-1.0) Estimated GFR (Cockcroft-Gault) 117.4 BUN/Creatinine Ratio 22 (6-20) Glucose Level 159 mg/dL (70-99) Calcium Level 8.9 mg/dL (8.5-10.1) Total Bilirubin 0.5 mg/dL (0.2-1.0) Aspartate Amino Transf (AST/SGOT) 78 U/L (15-37) Alanine Aminotransferase (ALT/SGPT) 174 U/L (14-59) Alkaline Phosphatase 82 U/L (46-116) Total Protein 6.6 g/dL (6.4-8.2) Albumin 2.4 g/dL (3.4-5.0) Albumin/Globulin Ratio 0.6 (1.0-1.7) Laboratory Tests Test 07/30/18 13:00 07/31/18 09:01 07/31/18 09:35 Nasal Screen MRSA (PCR) Negative (Negative) Glucose (Fingerstick) 149 mg/dL (70-99) White Blood Count 13.8 x10^3/uL (4.0-11.0) Red Blood Count 4.03 x10^6/uL (3.50-5.40) Hemoglobin 10.9 g/dL (12.0-15.5) Hematocrit 32.9 % (36.0-47.0) Mean Corpuscular Volume 81 fL (79-100) Mean Corpuscular Hemoglobin 27 pg (25-35) Mean Corpuscular Hemoglobin Concent 33 g/dL (31-37) Red Cell Distribution Width 13.9 % (11.5-14.5) Platelet Count 197 x10^3/uL (140-400) Neutrophils (%) (Auto) 88 % (31-73) Lymphocytes (%) (Auto) 6 % (24-48) Monocytes (%) (Auto) 6 % (0-9) Eosinophils (%) (Auto) 0 % (0-3) Basophils (%) (Auto) 0 % (0-3) Neutrophils # (Auto) 12.1 x10^3uL (1.8-7.7) Lymphocytes # (Auto) 0.8 x10^3/uL (1.0-4.8) Monocytes # (Auto) 0.8 x10^3/uL (0.0-1.1) Eosinophils # (Auto) 0.0 x10^3/uL (0.0-0.7) Basophils # (Auto) 0.0 x10^3/uL (0.0-0.2) Sodium Level 140 mmol/L (136-145) Potassium Level 3.5 mmol/L (3.5-5.1) Chloride Level 103 mmol/L (98-107) Carbon Dioxide Level 29 mmol/L (21-32) Anion Gap 8 (6-14) Blood Urea Nitrogen 13 mg/dL (7-20) Creatinine 0.6 mg/dL (0.6-1.0) Estimated GFR (Cockcroft-Gault) 117.4 BUN/Creatinine Ratio 22 (6-20) Glucose Level 159 mg/dL (70-99) Calcium Level 8.9 mg/dL (8.5-10.1) Total Bilirubin 0.5 mg/dL (0.2-1.0) Aspartate Amino Transf (AST/SGOT) 78 U/L (15-37) Alanine Aminotransferase (ALT/SGPT) 174 U/L (14-59) Alkaline Phosphatase 82 U/L (46-116) Total Protein 6.6 g/dL (6.4-8.2) Albumin 2.4 g/dL (3.4-5.0) Albumin/Globulin Ratio 0.6 (1.0-1.7) Medications Active Scripts Medications Dose Route/Sig Max Daily Dose Days Date Category Dose Instructions Topiramate 25 Mg Tablet 1 Tab PO HS 07/28/18 Reported Phentermine Hcl 37.5 Mg Capsule 1 Cap PO [id number] 07/28/18 Reported Metformin Hcl 500 Mg Tablet 500 Mg PO BIDWMEALS 07/28/18 Reported Motrin Ib (Ibuprofen) 200 Mg Tablet 800 Mg PO Q8H PRN 08/15/17 Rx Tessalon Perle (Benzonatate) 100 Mg Capsule 100 Mg PO TID PRN 01/11/17 Rx Prednisone 20 Mg Tablet 40 Mg PO DAILY 08/06/16 Rx START MEDICATIONS ON 08/07/2016 Medrol (Methylprednisolone) 4 Mg Tab.ds.pk 1 Pkg PO UD 11/16/14 Rx Levaquin (Levofloxacin) 750 Mg Tablet 750 Mg PO DAILY06 11/16/14 Rx Advair 250-50 Diskus (Fluticasone/Salmeterol) 1 Puff Puff 1 Puff INH BID 11/16/14 Rx Escitalopram Oxalate 20 Mg Tablet 1 Tab PO DAILY 11/09/14 Reported Xanax (Alprazolam) 0.25 Mg Tablet 0.25 Mg PO PRN Q6HRS PRN 11/09/14 Reported Comments CXR 07/31 diffuse lung infiltrates/ mild improvement Impression . 1. Progressive hypoxic respiratory failure requiring mechanical ventilation 07/30. suspect ARDS/ diffuse pneumonia 2. Acute exacerbation of chronic obstructive pulmonary disease with an asthma component. 3. Diffuse lung infiltrates, suspect diffuse lung pneumonia/ ARDS 4. Morbid obesity, body mass index of 40. 5. H/O Anxiety/panic attacks. 6. Status post cholecystectomy. Plan . 1. AC mode, high flow oxygen/ increase PEEP to 9 2. Nebulized treatments. q 4 hr, pulmicort, add solumedrol 3. sed rate (43). continue steroids 4. Bronch once oxygen requirement improves 5. BS Abx 6. echo reviewed. normal EF/ PA pressures 7. mild diuresis prn 8. enteral nutrition 9. DVT prophylaxis d/w RN/RT CCT 30 min MINI ORTIZ MD Jul 31, 2018 10:44
--- NOTE | 2018-07-31 11:26 | RAD ---
Portable chest, 07/31/2018: HISTORY: Respiratory failure Comparison is made to yesterday's study at 1:23 PM. The ET tube tip lies well above the tom. An NG tube extends into the stomach. A right jugular central venous catheter extends into the right atrium. The heart size is unchanged. There are moderate patchy bilateral pulmonary infiltrates. The basilar pulmonary infiltrates have progressed slightly. The underlying pulmonary vascularity is poorly defined. The findings suggest pulmonary edema and/or pneumonia. No definite pleural fluid is seen. IMPRESSION: 1. Stable tube positions. 2. Ongoing moderate patchy bilateral pulmonary infiltrates with slight interval worsening in the lung bases since yesterday's study. Electronically signed by: Genaro Moreno MD (07/31/2018 11:23 AM) [facility]
[2018-07-31 11:32] LABS: FIO2 ABG 70
[2018-07-31] MEDS: INSULIN LISPRO 300 UNITS/3 ML INSULN.PEN. SQ SCH ×3 (12:11→23:13)
[2018-07-31 12:59] LABS: % BANDS 1 % (0-9); % LYMPHS 3 % (24-48); % MONOS 5 % (0-10); % SEGS 91 % (35-66)
[2018-07-31 13:00] LABS: PLT ESTIMATE ADEQUATE (ADEQUATE)
[2018-07-31 14:02] LABS: VANC TR 10.8 mcg/mL (10.0-20.0)
--- NOTE | 2018-07-31 15:25 | PDOC ---
PROGRESS NOTES Chief Complaint Chief Complaint acute hypoxicrespiratory failure, req. intubation sepsis, pneumonia EZ, acute asthma exacerbation morbid obesity, BMI 41 History of Present Illness History of Present Illness still on vent Sa02 improved, labs OK on broader abx since ICU transfer cont breathing tx, wean vent as able supportive care Vitals Vitals Vital Signs Date Time Temp Pulse Resp B/P (MAP) Pulse Ox O2 Delivery O2 Flow Rate FiO2 07/31/18 15:00 89 19 137/69 (91) 96 Ventilator 07/31/18 12:00 99.0 99.0 07/30/18 16:00 15.0 Physical Exam General: mild distress, Other (sedated) Heart: Regular rate, Normal S1, Normal S2 Lungs: Wheezing (resolved) Abdomen: Normal bowel sounds, Soft Extremities: No cyanosis, No edema, Normal pulses Skin: No rashes Labs LABS Laboratory Tests Test 07/31/18 08:45 07/31/18 09:01 07/31/18 09:35 07/31/18 12:07 O2 Saturation 94 % (92-99) Arterial Blood pH 7.43 (7.35-7.45) Arterial Blood pCO2 at Patient Temp 43 mmHg (35-46) Arterial Blood pO2 at Patient Temp 67 mmHg (85-108) Arterial Blood HCO3 28 mmol/L (21-28) Arterial Blood Base Excess 3 mmol/L (-3-3) FiO2 70 Glucose (Fingerstick) 149 mg/dL (70-99) 159 mg/dL (70-99) White Blood Count 13.8 x10^3/uL (4.0-11.0) Red Blood Count 4.03 x10^6/uL (3.50-5.40) Hemoglobin 10.9 g/dL (12.0-15.5) Hematocrit 32.9 % (36.0-47.0) Mean Corpuscular Volume 81 fL (79-100) Mean Corpuscular Hemoglobin 27 pg (25-35) Mean Corpuscular Hemoglobin Concent 33 g/dL (31-37) Red Cell Distribution Width 13.9 % (11.5-14.5) Platelet Count 197 x10^3/uL (140-400) Neutrophils (%) (Auto) 88 % (31-73) Lymphocytes (%) (Auto) 6 % (24-48) Monocytes (%) (Auto) 6 % (0-9) Eosinophils (%) (Auto) 0 % (0-3) Basophils (%) (Auto) 0 % (0-3) Neutrophils # (Auto) 12.1 x10^3uL (1.8-7.7) Lymphocytes # (Auto) 0.8 x10^3/uL (1.0-4.8) Monocytes # (Auto) 0.8 x10^3/uL (0.0-1.1) Eosinophils # (Auto) 0.0 x10^3/uL (0.0-0.7) Basophils # (Auto) 0.0 x10^3/uL (0.0-0.2) Segmented Neutrophils % 91 % (35-66) Band Neutrophils % 1 % (0-9) Lymphocytes % 3 % (24-48) Monocytes % 5 % (0-10) Platelet Estimate Adequate (ADEQUATE) Sodium Level 140 mmol/L (136-145) Potassium Level 3.5 mmol/L (3.5-5.1) Chloride Level 103 mmol/L (98-107) Carbon Dioxide Level 29 mmol/L (21-32) Anion Gap 8 (6-14) Blood Urea Nitrogen 13 mg/dL (7-20) Creatinine 0.6 mg/dL (0.6-1.0) Estimated GFR (Cockcroft-Gault) 117.4 BUN/Creatinine Ratio 22 (6-20) Glucose Level 159 mg/dL (70-99) Calcium Level 8.9 mg/dL (8.5-10.1) Total Bilirubin 0.5 mg/dL (0.2-1.0) Aspartate Amino Transf (AST/SGOT) 78 U/L (15-37) Alanine Aminotransferase (ALT/SGPT) 174 U/L (14-59) Alkaline Phosphatase 82 U/L (46-116) Total Protein 6.6 g/dL (6.4-8.2) Albumin 2.4 g/dL (3.4-5.0) Albumin/Globulin Ratio 0.6 (1.0-1.7) Test 07/31/18 13:30 Vancomycin Level Trough 10.8 mcg/mL (10.0-20.0) Vancomycin Last Dose Date 07/31/18 Vancomycin Last Dose Time 0600 Assessment and Plan Assessmemt and Plan Problems Medical Problems: (1) Pneumonia Status: Acute Comment Review of Relevant I have reviewed the following items [place] (where applicable) has been applied. Labs Laboratory Tests Test 07/29/18 23:00 07/30/18 03:40 07/30/18 04:25 07/30/18 04:58 O2 Saturation 67 % (92-99) 96 % (92-99) 90 % (92-99) Arterial Blood pH 7.31 (7.35-7.45) 7.31 (7.35-7.45) 7.34 (7.35-7.45) Arterial Blood pCO2 at Patient Temp 50 mmHg (35-46) 54 mmHg (35-46) 48 mmHg (35-46) Arterial Blood pO2 at Patient Temp < 42 mmHg (85-108) 87 mmHg (85-108) 59 mmHg (85-108) Arterial Blood HCO3 25 mmol/L (21-28) 27 mmol/L (21-28) 25 mmol/L (21-28) Arterial Blood Base Excess -2 mmol/L (-3-3) -1 mmol/L (-3-3) -1 mmol/L (-3-3) FiO2 50.0 100 100 White Blood Count 26.5 x10^3/uL (4.0-11.0) Red Blood Count 5.07 x10^6/uL (3.50-5.40) Hemoglobin 14.0 g/dL (12.0-15.5) Hematocrit 42.1 % (36.0-47.0) Mean Corpuscular Volume 83 fL (79-100) Mean Corpuscular Hemoglobin 28 pg (25-35) Mean Corpuscular Hemoglobin Concent 33 g/dL (31-37) Red Cell Distribution Width 14.4 % (11.5-14.5) Platelet Count 246 x10^3/uL (140-400) Neutrophils (%) (Auto) 85 % (31-73) Lymphocytes (%) (Auto) 8 % (24-48) Monocytes (%) (Auto) 7 % (0-9) Eosinophils (%) (Auto) 0 % (0-3) Basophils (%) (Auto) 0 % (0-3) Neutrophils # (Auto) 22.5 x10^3uL (1.8-7.7) Lymphocytes # (Auto) 2.1 x10^3/uL (1.0-4.8) Monocytes # (Auto) 1.9 x10^3/uL (0.0-1.1) Eosinophils # (Auto) 0.0 x10^3/uL (0.0-0.7) Basophils # (Auto) 0.0 x10^3/uL (0.0-0.2) Segmented Neutrophils % 88 % (35-66) Band Neutrophils % 3 % (0-9) Lymphocytes % 8 % (24-48) Monocytes % 1 % (0-10) Platelet Estimate Adequate (ADEQUATE) Sodium Level 136 mmol/L (136-145) Potassium Level 5.0 mmol/L (3.5-5.1) Chloride Level 101 mmol/L (98-107) Carbon Dioxide Level 28 mmol/L (21-32) Anion Gap 7 (6-14) Blood Urea Nitrogen 13 mg/dL (7-20) Creatinine 0.8 mg/dL (0.6-1.0) Estimated GFR (Cockcroft-Gault) 84.2 Glucose Level 126 mg/dL (70-99) Calcium Level 9.1 mg/dL (8.5-10.1) Test 07/30/18 08:25 07/30/18 10:30 07/30/18 13:00 07/31/18 08:45 O2 Saturation 96 % (92-99) 94 % (92-99) Arterial Blood pH 7.37 (7.35-7.45) 7.43 (7.35-7.45) Arterial Blood pCO2 at Patient Temp 48 mmHg (35-46) 43 mmHg (35-46) Arterial Blood pO2 at Patient Temp 79 mmHg (85-108) 67 mmHg (85-108) Arterial Blood HCO3 27 mmol/L (21-28) 28 mmol/L (21-28) Arterial Blood Base Excess 1 mmol/L (-3-3) 3 mmol/L (-3-3) FiO2 100 70 Erythrocyte Sedimentation Rate 43 (0-25) Nasal Screen MRSA (PCR) Negative (Negative) Test 07/31/18 09:01 07/31/18 09:35 07/31/18 12:07 07/31/18 13:30 Glucose (Fingerstick) 149 mg/dL (70-99) 159 mg/dL (70-99) White Blood Count 13.8 x10^3/uL (4.0-11.0) Red Blood Count 4.03 x10^6/uL (3.50-5.40) Hemoglobin 10.9 g/dL (12.0-15.5) Hematocrit 32.9 % (36.0-47.0) Mean Corpuscular Volume 81 fL (79-100) Mean Corpuscular Hemoglobin 27 pg (25-35) Mean Corpuscular Hemoglobin Concent 33 g/dL (31-37) Red Cell Distribution Width 13.9 % (11.5-14.5) Platelet Count 197 x10^3/uL (140-400) Neutrophils (%) (Auto) 88 % (31-73) Lymphocytes (%) (Auto) 6 % (24-48) Monocytes (%) (Auto) 6 % (0-9) Eosinophils (%) (Auto) 0 % (0-3) Basophils (%) (Auto) 0 % (0-3) Neutrophils # (Auto) 12.1 x10^3uL (1.8-7.7) Lymphocytes # (Auto) 0.8 x10^3/uL (1.0-4.8) Monocytes # (Auto) 0.8 x10^3/uL (0.0-1.1) Eosinophils # (Auto) 0.0 x10^3/uL (0.0-0.7) Basophils # (Auto) 0.0 x10^3/uL (0.0-0.2) Segmented Neutrophils % 91 % (35-66) Band Neutrophils % 1 % (0-9) Lymphocytes % 3 % (24-48) Monocytes % 5 % (0-10) Platelet Estimate Adequate (ADEQUATE) Sodium Level 140 mmol/L (136-145) Potassium Level 3.5 mmol/L (3.5-5.1) Chloride Level 103 mmol/L (98-107) Carbon Dioxide Level 29 mmol/L (21-32) Anion Gap 8 (6-14) Blood Urea Nitrogen 13 mg/dL (7-20) Creatinine 0.6 mg/dL (0.6-1.0) Estimated GFR (Cockcroft-Gault) 117.4 BUN/Creatinine Ratio 22 (6-20) Glucose Level 159 mg/dL (70-99) Calcium Level 8.9 mg/dL (8.5-10.1) Total Bilirubin 0.5 mg/dL (0.2-1.0) Aspartate Amino Transf (AST/SGOT) 78 U/L (15-37) Alanine Aminotransferase (ALT/SGPT) 174 U/L (14-59) Alkaline Phosphatase 82 U/L (46-116) Total Protein 6.6 g/dL (6.4-8.2) Albumin 2.4 g/dL (3.4-5.0) Albumin/Globulin Ratio 0.6 (1.0-1.7) Vancomycin Level Trough 10.8 mcg/mL (10.0-20.0) Vancomycin Last Dose Date 07/31/18 Vancomycin Last Dose Time 0600 Laboratory Tests Test 07/31/18 08:45 07/31/18 09:01 07/31/18 09:35 07/31/18 12:07 O2 Saturation 94 % (92-99) Arterial Blood pH 7.43 (7.35-7.45) Arterial Blood pCO2 at Patient Temp 43 mmHg (35-46) Arterial Blood pO2 at Patient Temp 67 mmHg (85-108) Arterial Blood HCO3 28 mmol/L (21-28) Arterial Blood Base Excess 3 mmol/L (-3-3) FiO2 70 Glucose (Fingerstick) 149 mg/dL (70-99) 159 mg/dL (70-99) White Blood Count 13.8 x10^3/uL (4.0-11.0) Red Blood Count 4.03 x10^6/uL (3.50-5.40) Hemoglobin 10.9 g/dL (12.0-15.5) Hematocrit 32.9 % (36.0-47.0) Mean Corpuscular Volume 81 fL (79-100) Mean Corpuscular Hemoglobin 27 pg (25-35) Mean Corpuscular Hemoglobin Concent 33 g/dL (31-37) Red Cell Distribution Width 13.9 % (11.5-14.5) Platelet Count 197 x10^3/uL (140-400) Neutrophils (%) (Auto) 88 % (31-73) Lymphocytes (%) (Auto) 6 % (24-48) Monocytes (%) (Auto) 6 % (0-9) Eosinophils (%) (Auto) 0 % (0-3) Basophils (%) (Auto) 0 % (0-3) Neutrophils # (Auto) 12.1 x10^3uL (1.8-7.7) Lymphocytes # (Auto) 0.8 x10^3/uL (1.0-4.8) Monocytes # (Auto) 0.8 x10^3/uL (0.0-1.1) Eosinophils # (Auto) 0.0 x10^3/uL (0.0-0.7) Basophils # (Auto) 0.0 x10^3/uL (0.0-0.2) Segmented Neutrophils % 91 % (35-66) Band Neutrophils % 1 % (0-9) Lymphocytes % 3 % (24-48) Monocytes % 5 % (0-10) Platelet Estimate Adequate (ADEQUATE) Sodium Level 140 mmol/L (136-145) Potassium Level 3.5 mmol/L (3.5-5.1) Chloride Level 103 mmol/L (98-107) Carbon Dioxide Level 29 mmol/L (21-32) Anion Gap 8 (6-14) Blood Urea Nitrogen 13 mg/dL (7-20) Creatinine 0.6 mg/dL (0.6-1.0) Estimated GFR (Cockcroft-Gault) 117.4 BUN/Creatinine Ratio 22 (6-20) Glucose Level 159 mg/dL (70-99) Calcium Level 8.9 mg/dL (8.5-10.1) Total Bilirubin 0.5 mg/dL (0.2-1.0) Aspartate Amino Transf (AST/SGOT) 78 U/L (15-37) Alanine Aminotransferase (ALT/SGPT) 174 U/L (14-59) Alkaline Phosphatase 82 U/L (46-116) Total Protein 6.6 g/dL (6.4-8.2) Albumin 2.4 g/dL (3.4-5.0) Albumin/Globulin Ratio 0.6 (1.0-1.7) Test 07/31/18 13:30 Vancomycin Level Trough 10.8 mcg/mL (10.0-20.0) Vancomycin Last Dose Date 07/31/18 Vancomycin Last Dose Time 0600 Microbiology 07/28/18 Blood Culture - Preliminary, Resulted NO GROWTH AFTER 3 DAYS Medications Current Medications Prednisone (Prednisone) 50 mg 1X ONCE PO Last administered on 07/28/18at 06:47; Start 9/3/18 at 07:00; Stop 07/28/18 at 07:01; Status DC Albuterol/ Ipratropium (Duoneb) 3 ml 1X ONCE NEB Last administered on at 06:37; Start 07/28/18 at 07:00; Stop 07/28/18 at 07:01; Status DC Sodium Chloride 1,000 ml @ 1,000 mls/hr 1X ONCE IV Last administered on at 07:03; Start 07/28/18 at 07:00; Stop 07/28/18 at 07:59; Status DC Albuterol Sulfate (Ventolin Neb Soln) 10 mg 1X ONCE CONT NEB Last administered on 07/28/18at 07:25; Start 07/28/18 at 07:00; Stop 07/28/18 at 07:02; Status DC Magnesium Sulfate 50 ml @ 25 mls/hr 1X ONCE IV Last administered on 07/28/18at 07:41; Start 07/28/18 at 07:15; Stop 07/28/18 at 09:14; Status DC Ceftriaxone Sodium 50 ml @ 100 mls/hr 1X ONCE IV Last administered on at 08:52; Start 07/28/18 at 08:15; Stop 07/28/18 at 08:44; Status DC Azithromycin 250 ml @ 250 mls/hr 1X ONCE IV Last administered on 07/28/18at 09: 20; Start 07/28/18 at 08:15; Stop 07/28/18 at 09:14; Status DC Acetaminophen/ Hydrocodone Bitart (Lortab 5/325) 2 tab 1X ONCE PO Last administered on 07/28/18at 08:49; Start 07/28/18 at 08:45; Stop 07/28/18 at 08:46; Status DC Ondansetron HCl (Zofran) 4 mg PRN Q8HRS PRN IV NAUSEA/VOMITING Last administered on 07/28/18at 22:40; Start 07/28/18 at 08:45; Stop 07/29/18 at 08:44; Status DC Acetaminophen (Tylenol) 650 mg PRN Q4HRS PRN PO FEVER Last administered on at 22:40; Start 07/28/18 at 08:45; Stop 07/29/18 at 08:44; Status DC Albuterol/ Ipratropium (Duoneb) 3 ml RTQID NEB Last administered on 07/29/18at 07 :29; Start 07/28/18 at 12:00; Stop 07/29/18 at 10:30; Status DC Acetaminophen/ Hydrocodone Bitart (Lortab 5/325) 2 tab Q6H PRN PO SEVERE PAIN Last administered on 07/29/18at 23:09; Start 07/28/18 at 08:45 Prednisone (Prednisone) 60 mg DAILY PO ; Start 07/29/18 at 09:00; Stop 07/29/18 at 09:00; Status DC Budesonide (Pulmicort) 0.5 mg RTBID NEB Last administered on 07/31/18at 08:17; Start 07/28/18 at 20:00 Budesonide (Pulmicort) 0.5 mg 1X ONCE NEB Last administered on 07/28/18at 11:06 ; Start 07/28/18 at 09:30; Stop 07/28/18 at 09:31; Status DC Albuterol Sulfate (Ventolin Neb Soln) 2.5 mg PRN Q4HRS PRN NEB SHORTNESS OF BREATH; Start 07/28/18 at 09:30 Azithromycin (Zithromax) 250 mg DAILY PO Last administered on 07/31/18at 09:26; Start 07/28/18 at 10:00 Alprazolam (Xanax) 0.25 mg PRN Q6HRS PRN PO ANXIETY / AGITATION Last administered on 07/29/18at 23:13; Start 07/28/18 at 12:45 Ibuprofen (Motrin) 800 mg PRN Q8HRS PRN PO PAIN MILD/INFLAMMATION; Start at 12:45 Benzonatate (Tessalon Perle) 100 mg PRN TID PRN PO COUGH 2ND CHOICE; Start 07/28 at 14:00 Citalopram Hydrobromide (CeleXA) 40 mg DAILY PO Last administered on 07/31/18at 09:26; Start 07/28/18 at 13:00 Metformin HCl (Glucophage) 500 mg BIDWMEALS PO Last administered on 07/29/18at 10 :07; Start 07/28/18 at 17:00; Stop 07/31/18 at 08:58; Status DC Promethazine HCl/ Codeine (Phenergan With Codeine) 5 ml PRN Q6HRS PRN PO COUGH 1ST CHOICE Last administered on 07/29/18at 16:25; Start 07/28/18 at 15:30 Guaifenesin (MUCINEX ER with DM) 1 tab BID PO Last administered on 07/30/18at 20: 57; Start 07/28/18 at 21:00; Stop 07/31/18 at 09:47; Status DC Lactobacillus Rhamnosus (Culturelle) 1 cap BID PO Last administered on at 21:44; Start 07/28/18 at 21:00; Stop 07/30/18 at 09:48; Status DC Prednisone (Prednisone) 30 mg DAILY PO Last administered on 07/29/18at 10:06; Start 07/29/18 at 09:00; Stop 07/31/18 at 08:58; Status DC Ceftriaxone Sodium 1 gm/ Dextrose 50 ml @ 100 mls/hr Q24H IV ; Start 07/29/18 at 09:00; Status UNV Ceftriaxone Sodium (Rocephin) 1 gm Q24H IVP Last administered on 07/29/18at 10:06 ; Start 07/29/18 at 09:00; Stop 07/30/18 at 10:07; Status DC Albuterol/ Ipratropium (Duoneb) 3 ml Q4HRS NEB Last administered on 07/31/18at 15 :20; Start 07/29/18 at 12:00 Budesonide (Pulmicort) 0.5 mg RTBID NEB ; Start 07/29/18 at 20:00; Status UNV Famotidine (Pepcid) 20 mg QHS PO Last administered on 07/29/18at 21:44; Start 07/29/18 at 21:00; Stop 07/30/18 at 10:10; Status DC Enoxaparin Sodium (Lovenox 40mg Syringe) 40 mg Q12H SQ Last administered on 07/31at 12:03; Start 07/29/18 at 12:30 Acetaminophen (Tylenol) 650 mg PRN Q6HRS PRN PO FEVER; Start 07/29/18 at 11:45 Ondansetron HCl (Zofran) 4 mg PRN Q6HRS PRN IV NAUSEA/VOMITING Last administered on 07/29/18at 15:23; Start 07/29/18 at 11:45 Morphine Sulfate (Morphine Sulfate) 2 mg PRN Q2HR PRN IV MODERATE TO SEVERE PAIN; Start 07/29/18 at 11:45 Tramadol HCl (Ultram) 50 mg PRN Q6HRS PRN PO MODERATE PAIN; Start 07/29/18 at 11 :45 Docusate Sodium (Colace) 100 mg PRN DAILY PRN PO CONSTIPATION; Start 07/29/18 at 11:45 Haloperidol Lactate (Haldol Inj) 2 mg PRN Q2HR PRN IVP AGITATION Last administered on 07/31/18at 09:26; Start 07/30/18 at 01:30 Lorazepam (Ativan) 0.25 mg PRN Q1HR PRN IV ANXIETY / AGITATION Last administered on 07/30/18at 03:30; Start 07/30/18 at 01:30 Propofol 100 ml @ As Directed STK-MED ONCE IV ; Start 07/30/18 at 04:12; Stop at 04:13; Status DC Etomidate (Amidate) 20 mg STK-MED ONCE IV ; Start 07/30/18 at 04:18; Stop at 04:19; Status DC Propofol 100 ml @ 0 mls/hr CONT PRN IV PER PROTOCOL Last administered on at 12:46; Start 07/30/18 at 04:30 Chlorhexidine Gluconate (Peridex) 15 ml BID MM Last administered on 07/31/18at 09 :26; Start 07/30/18 at 09:00 Midazolam HCl 100 ml @ 0 mls/hr CONT PRN IV PER PROTOCOL Last administered on at 03:42; Start 07/30/18 at 04:30 Piperacillin Sod/ Tazobactam Sod (Zosyn Per Pharmacy) 1 each PRN DAILY PRN MC SEE COMMENTS; Start 07/30/18 at 10:00 Vancomycin HCl (Vanco Per Pharmacy) 1 each PRN DAILY PRN MC SEE COMMENTS Last administered on 07/30/18at 15:09; Start 07/30/18 at 10:00 Methylprednisolone Sodium Succinate (SOLU-Medrol 125MG VIAL) 60 mg Q8HRS IV Last administered on 07/31/18at 14:03; Start 07/30/18 at 14:00 Pantoprazole Sodium (PROTONIX VIAL for IV PUSH) 40 mg DAILYAC IVP Last administered on 07/31/18at 09:26; Start 07/30/18 at 10:30 Piperacillin Sod/ Tazobactam Sod 3.375 gm/Sodium Chloride 50 ml @ 100 mls/hr Q6HRS IV Last administered on 07/31/18at 12:03; Start 07/30/18 at 12:00 Vancomycin HCl 2 gm/Sodium Chloride 500 ml @ 250 mls/hr 1X ONCE IV Last administered on 07/30/18at 10:31; Start 07/30/18 at 10:30; Stop 07/30/18 at 12:29; Status DC Vancomycin HCl 1.5 gm/Sodium Chloride 500 ml @ 250 mls/hr Q8H IV Last administered on 07/31/18at 14:10; Start 07/30/18 at 18:30 Vancomycin HCl (Vancomycin Trough Level) 1 each 1X ONCE MC Last administered on 07/31/18at 13:30; Start 07/31/18 at 13:30; Stop 07/31/18 at 13:31; Status DC Insulin Human Lispro (HumaLOG) 0-7 UNITS TIDWMEALS SQ ; Start 07/31/18 at 08:00; Stop 07/31/18 at 09:04; Status DC Dextrose (Dextrose 50%-Water Syringe) 12.5 gm PRN Q15MIN PRN IV SEE COMMENTS; Start 07/30/18 at 17:45 Insulin Human Lispro (HumaLOG) 0-7 UNITS Q6HRS SQ Last administered on at 12:11; Start 07/31/18 at 12:00 Active Scripts Active Motrin Ib (Ibuprofen) 200 Mg Tablet 800 Mg PO Q8H PRN Tessalon Perle (Benzonatate) 100 Mg Capsule 100 Mg PO TID PRN Prednisone 20 Mg Tablet 40 Mg PO DAILY START MEDICATIONS ON 08/07/2016 Medrol (Methylprednisolone) 4 Mg Tab.ds.pk 1 Pkg PO UD Levaquin (Levofloxacin) 750 Mg Tablet 750 Mg PO DAILY06 Advair 250-50 Diskus (Fluticasone/Salmeterol) 1 Puff Puff 1 Puff INH BID Reported Topiramate 25 Mg Tablet 1 Tab PO HS Phentermine Hcl 37.5 Mg Capsule 1 Cap PO DAILYWBKFT Metformin Hcl 500 Mg Tablet 500 Mg PO BIDWMEALS Escitalopram Oxalate 20 Mg Tablet 1 Tab PO DAILY Xanax (Alprazolam) 0.25 Mg Tablet 0.25 Mg PO PRN Q6HRS PRN Vitals/I & O Vital Sign - Last 24 Hours 07/30/18 07/30/18 07/30/18 07/30/18 16:00 16:00 16:00 16:07 Temp 100.1 100.1 Pulse 107 Resp 20 B/P (MAP) 132/70 (90) Pulse Ox 93 93 O2 Delivery Mechanical Ventilator Ventilator Ventilator O2 Flow Rate 1.0 15.0 07/30/18 07/30/18 07/30/18 07/30/18 17:00 17:52 18:00 19:00 Pulse 102 103 102 Resp 18 18 21 B/P (MAP) 132/70 (90) 126/61 (82) 131/63 (85) Pulse Ox 95 95 95 95 O2 Delivery Ventilator Ventilator Ventilator 07/30/18 07/30/18 07/30/18 07/30/18 19:19 20:00 20:00 21:00 Temp 99.5 99.5 Pulse 106 105 Resp 19 21 B/P (MAP) 153/60 (91) 132/68 (89) Pulse Ox 95 93 94 O2 Delivery Ventilator Ventilator Mechanical Ventilator Ventilator 07/30/18 07/30/18 07/30/18 07/30/18 21:10 22:00 23:00 23:14 Pulse 98 94 Resp 21 18 B/P (MAP) 143/71 (95) 133/68 (89) Pulse Ox 94 96 95 95 O2 Delivery Ventilator Ventilator Ventilator Ventilator 07/31/18 07/31/18 07/31/18 07/31/18 00:00 00:00 00:35 01:00 Temp 100.1 100.1 Pulse 98 94 Resp 20 18 B/P (MAP) 122/57 (78) 121/58 (79) Pulse Ox 92 93 94 O2 Delivery Mechanical Ventilator Ventilator Ventilator Ventilator 07/31/18 07/31/18 07/31/18 07/31/18 02:00 03:00 03:12 04:00 Pulse 90 103 Resp 23 25 B/P (MAP) 116/58 (77) 119/59 (79) Pulse Ox 93 93 93 O2 Delivery Ventilator Ventilator Ventilator Mechanical Ventilator 07/31/18 07/31/18 07/31/18 07/31/18 04:00 05:00 05:05 06:00 Temp 99.2 99.2 Pulse 94 90 90 Resp 18 18 18 B/P (MAP) 134/64 (87) 123/70 (87) 136/67 (90) Pulse Ox 94 93 93 92 O2 Delivery Ventilator Ventilator Ventilator Ventilator 07/31/18 07/31/18 07/31/18 07/31/18 07:00 08:00 08:00 08:18 Temp 99.3 99.3 Pulse 86 90 Resp 18 18 B/P (MAP) 125/64 (84) 124/63 (83) Pulse Ox 93 93 91 O2 Delivery Ventilator Ventilator Mechanical Ventilator Ventilator 07/31/18 07/31/18 07/31/18 07/31/18 09:00 09:45 10:00 11:00 Pulse 96 92 86 Resp 18 19 20 B/P (MAP) 121/73 (89) 119/68 (85) 135/60 (85) Pulse Ox 95 92 92 93 O2 Delivery Ventilator Ventilator Ventilator Ventilator 07/31/18 07/31/18 07/31/18 07/31/18 11:48 12:00 12:00 13:00 Temp 99.0 99.0 Pulse 86 94 Resp 18 18 B/P (MAP) 135/61 (85) 145/67 (93) Pulse Ox 95 94 94 O2 Delivery Ventilator Mechanical Ventilator Ventilator Ventilator 07/31/18 07/31/18 07/31/18 13:15 14:00 15:00 Pulse 92 89 Resp 18 19 B/P (MAP) 123/70 (87) 137/69 (91) Pulse Ox 92 95 96 O2 Delivery Ventilator Ventilator Ventilator Intake and Output 07/30/18 07/30/18 07/31/18 15:00 23:00 07:00 Intake Total 500 ml 611 ml 2058 ml Output Total 550 ml 1055 ml 795 ml Balance -50 ml -444 ml 1263 ml RAMON RUST MD Jul 31, 2018 15:25
[2018-07-31] MEDS: VANCOMYCIN PER PHARMACY MC PRN ×2 (16:15→16:20)
[2018-07-31] MEDS: VANCOMYCIN 1.75 GM in IV NORMAL SALINE 500ML BAG 500 ML IV SCH (21:47)
[2018-08-01] VITALS (22 sets, daily range): BP systolic 116–154; BP diastolic 58–88
[2018-08-01] MEDS: PIPERACILLIN/TAZOBACTAM 3.375 GM in IV NORMAL SALINE 50ML 50 ML IV SCH ×4 (00:49→17:51)
[2018-08-01] MEDS: ENOXAPARIN 40 MG/0.4 ML SYRINGE. SQ SCH ×3 (00:52→23:18)
[2018-08-01] MEDS: PROPOFOL 100 ML IV PRN ×10 (00:54→23:18)
[2018-08-01] MEDS: IPRATRPIUM/ALBUTEROL 0.5/2.5MG 3 ML NEBU. NEB SCH ×5 (03:57→19:10)
[2018-08-01] MEDS: methylPREDNISolone SOD SUCC PF 125 MG/2 ML VIAL. IV SCH ×3 (05:12→21:01)
[2018-08-01] MEDS: INSULIN LISPRO 300 UNITS/3 ML INSULN.PEN. SQ SCH ×4 (05:21→23:24)
[2018-08-01 05:46] LABS: BASO % 0 % (0-3); EOS % 0 % (0-3); HEMATOCRIT 29.5 % (36.0-47.0); HEMOGLOBIN 9.9 g/dL (12.0-15.5); LYMPH % 9 % (24-48); MEAN CORPUSCULAR HEMOGLOBIN 27 pg (25-35); MEAN CORPUSCULAR HGB CONC 33 g/dL (31-37); MEAN CORPUSCULAR VOLUME 82 fL (79-100); MONO # 0.7 x10^3/uL (0.0-1.1); MONO % 6 % (0-9); NEUT # 9.7 x10^3uL (1.8-7.7); NEUT % 85 % (31-73); PLATELET COUNT 210 x10^3/uL (140-400); RED BLOOD COUNT 3.61 x10^6/uL (3.50-5.40); RED CELL DISTRIBUTION WIDTH 13.8 % (11.5-14.5); WHITE BLOOD COUNT 11.4 x10^3/uL (4.0-11.0)
[2018-08-01] MEDS: VANCOMYCIN 1.75 GM in IV NORMAL SALINE 500ML BAG 500 ML IV SCH ×2 (05:49→13:48)
[2018-08-01 06:24] LABS: CALCIUM 8.1 mg/dL (8.5-10.1); CREATININE 0.5 mg/dL (0.6-1.0); GFR 144.9; POTASSIUM 3.6 mmol/L (3.5-5.1)
[2018-08-01] MEDS: BUDESONIDE 0.5 MG/2 ML NEBU. NEB SCH ×2 (07:46→19:10)
[2018-08-01 08:07] LABS: BASE EXCESS ABG 4 mmol/L (-3-3); HCO3 ABG 29 mmol/L (21-28); PCO2 ABG 44 mmHg (35-46); PO2 ABG 91 mmHg (85-108); SAT O2 ABG 97 % (92-99)
[2018-08-01 08:13] LABS: FIO2 ABG 70
[2018-08-01] MEDS: PANTOPRAZOLE IV PUSH 40 MG VIAL. IVP SCH (08:53)
[2018-08-01] MEDS: CHLORHEXIDINE 0.12% 15 ML MOUTHWASH. MM SCH ×2 (08:53→21:01)
[2018-08-01] MEDS: AZITHROMYCIN 250 MG TABLET. PO SCH (08:54)
[2018-08-01] MEDS: CITALOPRAM 20 MG TABLET. PO SCH (08:54)
--- NOTE | 2018-08-01 09:56 | PDOC2 ---
GI CONSULT Reason For Consult: tube feed residual HPI: HPI: History per chart and RN. 32 y/o female w/ ARDS/pneumonia, intubated and sedated in ICU. Has OG tube for feeds, residual of 125cc overnight. Feeds held and we were asked to see. H/o ARDS w/ previous trach and PEG placement/removal. EGD by Dr. Antoine in 02/2013 (for PEG placement) showed mild gastritis. PMH: PMH: per chart - asthma/COPD, anxiety, depression, pneumonia, previous trach and PEG (removed), cholecystectomy, FH: Family History: Other (unable to obtain) Social History: Smoke: Quit ALCOHOL: none Drugs: Marijuana (in the past) ROS: Unable to obtain. Vitals: Vitals: Vital Signs Date Time Temp Pulse Resp B/P (MAP) Pulse Ox O2 Delivery O2 Flow Rate FiO2 08/01/18 09:46 94 Ventilator 08/01/18 09:00 90 20 140/69 (92) 08/01/18 08:00 99.3 99.3 Labs: Labs: Laboratory Tests Test 07/31/18 12:07 07/31/18 13:30 07/31/18 18:12 07/31/18 23:12 Glucose (Fingerstick) 159 mg/dL (70-99) 153 mg/dL (70-99) 128 mg/dL (70-99) Vancomycin Level Trough 10.8 mcg/mL (10.0-20.0) Vancomycin Last Dose Date 07/31/18 Vancomycin Last Dose Time 0600 Test 08/01/18 05:20 08/01/18 05:30 08/01/18 07:50 Glucose (Fingerstick) 122 mg/dL (70-99) White Blood Count 11.4 x10^3/uL (4.0-11.0) Red Blood Count 3.61 x10^6/uL (3.50-5.40) Hemoglobin 9.9 g/dL (12.0-15.5) Hematocrit 29.5 % (36.0-47.0) Mean Corpuscular Volume 82 fL (79-100) Mean Corpuscular Hemoglobin 27 pg (25-35) Mean Corpuscular Hemoglobin Concent 33 g/dL (31-37) Red Cell Distribution Width 13.8 % (11.5-14.5) Platelet Count 210 x10^3/uL (140-400) Neutrophils (%) (Auto) 85 % (31-73) Lymphocytes (%) (Auto) 9 % (24-48) Monocytes (%) (Auto) 6 % (0-9) Eosinophils (%) (Auto) 0 % (0-3) Basophils (%) (Auto) 0 % (0-3) Neutrophils # (Auto) 9.7 x10^3uL (1.8-7.7) Lymphocytes # (Auto) 1.0 x10^3/uL (1.0-4.8) Monocytes # (Auto) 0.7 x10^3/uL (0.0-1.1) Eosinophils # (Auto) 0.0 x10^3/uL (0.0-0.7) Basophils # (Auto) 0.0 x10^3/uL (0.0-0.2) Sodium Level 144 mmol/L (136-145) Potassium Level 3.6 mmol/L (3.5-5.1) Chloride Level 108 mmol/L (98-107) Carbon Dioxide Level 29 mmol/L (21-32) Anion Gap 7 (6-14) Blood Urea Nitrogen 14 mg/dL (7-20) Creatinine 0.5 mg/dL (0.6-1.0) Estimated GFR (Cockcroft-Gault) 144.9 Glucose Level 138 mg/dL (70-99) Calcium Level 8.1 mg/dL (8.5-10.1) O2 Saturation 97 % (92-99) Arterial Blood pH 7.43 (7.35-7.45) Arterial Blood pCO2 at Patient Temp 44 mmHg (35-46) Arterial Blood pO2 at Patient Temp 91 mmHg (85-108) Arterial Blood HCO3 29 mmol/L (21-28) Arterial Blood Base Excess 4 mmol/L (-3-3) FiO2 70 BLOOD CULTURE Preliminary NO GROWTH AFTER 4 DAYS Allergies: Coded Allergies: diphenhydramine (Verified Allergy, Intermediate, 04/09/14) Medications: Current Medications Medications (Trade) Dose Ordered Sig/Fady Route PRN Reason Start Time Stop Time Status Last Admin Dose Admin Vancomycin HCl (Vancomycin Trough Level) 1 each 1X ONCE MC 07/31/18 13:30 07/31/18 13:31 DC 07/31/18 13:30 Insulin Human Lispro (HumaLOG) 0-7 UNITS Q6HRS SQ 07/31/18 12:00 07/31/18 18:14 Vancomycin HCl 1.75 gm/Sodium Chloride 500 ml @ 250 mls/hr Q8H IV 07/31/18 22:00 08/01/18 05:49 Imaging: Imaging: CXR 07/31/18 IMPRESSION: 1. Stable tube positions. 2. Ongoing moderate patchy bilateral pulmonary infiltrates with slight interval worsening in the lung bases since yesterday's study. Echo <Conclusion> The left ventricular systolic function is normal and the ejection fraction is within normal range. EF 55% There is grossly normal LV segmental wall motion. Technically limited images. Doppler and Color Flow revealed mild tricuspid regurgitation. The PA pressure was estimated at 37 mmHg. PE: GEN: intubated HEENT: Atraumatic, +OGT LUNGS: vent, crackles HEART: RRR ABD: obese, BS quiet, soft EXTREMITY: No edema SKIN: No rashes, no jaundice NEURO/PSYCH: sedated A/P: A/P: ARDS/pneumonia, COPD exacerbation OG tube in place w/ increased residuals H/o tracheostomy and PEG placement -- Check KUB, consider retrying feeds if unrevealing. Agree w/ PPI. ANGE VILLEDA Aug 01, 2018 09:56
--- NOTE | 2018-08-01 11:41 | PDOC ---
PULMONARY PROGRESS NOTES Subjective patient intubated 07/30 after progressive hypoxia and failed BIPAP intubated/ sedated ,on 70% FIO2/ 9 PEEP Vitals Vital Signs Date Time Temp Pulse Resp B/P (MAP) Pulse Ox O2 Delivery O2 Flow Rate FiO2 08/01/18 09:46 94 Ventilator 08/01/18 09:00 90 20 140/69 (92) 08/01/18 08:00 99.3 99.3 Lungs: Wheezing (resolved) Cardiovascular: S1 Abdomen: Soft Extremities: Other (trace edema) Skin: Warm Labs Laboratory Tests Test 07/30/18 13:00 07/31/18 08:45 07/31/18 09:01 07/31/18 09:35 Nasal Screen MRSA (PCR) Negative (Negative) O2 Saturation 94 % (92-99) Arterial Blood pH 7.43 (7.35-7.45) Arterial Blood pCO2 at Patient Temp 43 mmHg (35-46) Arterial Blood pO2 at Patient Temp 67 mmHg (85-108) Arterial Blood HCO3 28 mmol/L (21-28) Arterial Blood Base Excess 3 mmol/L (-3-3) FiO2 70 Glucose (Fingerstick) 149 mg/dL (70-99) White Blood Count 13.8 x10^3/uL (4.0-11.0) Red Blood Count 4.03 x10^6/uL (3.50-5.40) Hemoglobin 10.9 g/dL (12.0-15.5) Hematocrit 32.9 % (36.0-47.0) Mean Corpuscular Volume 81 fL (79-100) Mean Corpuscular Hemoglobin 27 pg (25-35) Mean Corpuscular Hemoglobin Concent 33 g/dL (31-37) Red Cell Distribution Width 13.9 % (11.5-14.5) Platelet Count 197 x10^3/uL (140-400) Neutrophils (%) (Auto) 88 % (31-73) Lymphocytes (%) (Auto) 6 % (24-48) Monocytes (%) (Auto) 6 % (0-9) Eosinophils (%) (Auto) 0 % (0-3) Basophils (%) (Auto) 0 % (0-3) Neutrophils # (Auto) 12.1 x10^3uL (1.8-7.7) Lymphocytes # (Auto) 0.8 x10^3/uL (1.0-4.8) Monocytes # (Auto) 0.8 x10^3/uL (0.0-1.1) Eosinophils # (Auto) 0.0 x10^3/uL (0.0-0.7) Basophils # (Auto) 0.0 x10^3/uL (0.0-0.2) Segmented Neutrophils % 91 % (35-66) Band Neutrophils % 1 % (0-9) Lymphocytes % 3 % (24-48) Monocytes % 5 % (0-10) Platelet Estimate Adequate (ADEQUATE) Sodium Level 140 mmol/L (136-145) Potassium Level 3.5 mmol/L (3.5-5.1) Chloride Level 103 mmol/L (98-107) Carbon Dioxide Level 29 mmol/L (21-32) Anion Gap 8 (6-14) Blood Urea Nitrogen 13 mg/dL (7-20) Creatinine 0.6 mg/dL (0.6-1.0) Estimated GFR (Cockcroft-Gault) 117.4 BUN/Creatinine Ratio 22 (6-20) Glucose Level 159 mg/dL (70-99) Calcium Level 8.9 mg/dL (8.5-10.1) Total Bilirubin 0.5 mg/dL (0.2-1.0) Aspartate Amino Transf (AST/SGOT) 78 U/L (15-37) Alanine Aminotransferase (ALT/SGPT) 174 U/L (14-59) Alkaline Phosphatase 82 U/L (46-116) Total Protein 6.6 g/dL (6.4-8.2) Albumin 2.4 g/dL (3.4-5.0) Albumin/Globulin Ratio 0.6 (1.0-1.7) Test 07/31/18 12:07 07/31/18 13:30 07/31/18 18:12 07/31/18 23:12 Glucose (Fingerstick) 159 mg/dL (70-99) 153 mg/dL (70-99) 128 mg/dL (70-99) Vancomycin Level Trough 10.8 mcg/mL (10.0-20.0) Vancomycin Last Dose Date 07/31/18 Vancomycin Last Dose Time 0600 Test 08/01/18 05:20 08/01/18 05:30 08/01/18 07:50 Glucose (Fingerstick) 122 mg/dL (70-99) White Blood Count 11.4 x10^3/uL (4.0-11.0) Red Blood Count 3.61 x10^6/uL (3.50-5.40) Hemoglobin 9.9 g/dL (12.0-15.5) Hematocrit 29.5 % (36.0-47.0) Mean Corpuscular Volume 82 fL (79-100) Mean Corpuscular Hemoglobin 27 pg (25-35) Mean Corpuscular Hemoglobin Concent 33 g/dL (31-37) Red Cell Distribution Width 13.8 % (11.5-14.5) Platelet Count 210 x10^3/uL (140-400) Neutrophils (%) (Auto) 85 % (31-73) Lymphocytes (%) (Auto) 9 % (24-48) Monocytes (%) (Auto) 6 % (0-9) Eosinophils (%) (Auto) 0 % (0-3) Basophils (%) (Auto) 0 % (0-3) Neutrophils # (Auto) 9.7 x10^3uL (1.8-7.7) Lymphocytes # (Auto) 1.0 x10^3/uL (1.0-4.8) Monocytes # (Auto) 0.7 x10^3/uL (0.0-1.1) Eosinophils # (Auto) 0.0 x10^3/uL (0.0-0.7) Basophils # (Auto) 0.0 x10^3/uL (0.0-0.2) Sodium Level 144 mmol/L (136-145) Potassium Level 3.6 mmol/L (3.5-5.1) Chloride Level 108 mmol/L (98-107) Carbon Dioxide Level 29 mmol/L (21-32) Anion Gap 7 (6-14) Blood Urea Nitrogen 14 mg/dL (7-20) Creatinine 0.5 mg/dL (0.6-1.0) Estimated GFR (Cockcroft-Gault) 144.9 Glucose Level 138 mg/dL (70-99) Calcium Level 8.1 mg/dL (8.5-10.1) O2 Saturation 97 % (92-99) Arterial Blood pH 7.43 (7.35-7.45) Arterial Blood pCO2 at Patient Temp 44 mmHg (35-46) Arterial Blood pO2 at Patient Temp 91 mmHg (85-108) Arterial Blood HCO3 29 mmol/L (21-28) Arterial Blood Base Excess 4 mmol/L (-3-3) FiO2 70 Laboratory Tests Test 07/31/18 12:07 07/31/18 13:30 07/31/18 18:12 07/31/18 23:12 Glucose (Fingerstick) 159 mg/dL (70-99) 153 mg/dL (70-99) 128 mg/dL (70-99) Vancomycin Level Trough 10.8 mcg/mL (10.0-20.0) Vancomycin Last Dose Date 07/31/18 Vancomycin Last Dose Time 0600 Test 08/01/18 05:20 08/01/18 05:30 08/01/18 07:50 Glucose (Fingerstick) 122 mg/dL (70-99) White Blood Count 11.4 x10^3/uL (4.0-11.0) Red Blood Count 3.61 x10^6/uL (3.50-5.40) Hemoglobin 9.9 g/dL (12.0-15.5) Hematocrit 29.5 % (36.0-47.0) Mean Corpuscular Volume 82 fL (79-100) Mean Corpuscular Hemoglobin 27 pg (25-35) Mean Corpuscular Hemoglobin Concent 33 g/dL (31-37) Red Cell Distribution Width 13.8 % (11.5-14.5) Platelet Count 210 x10^3/uL (140-400) Neutrophils (%) (Auto) 85 % (31-73) Lymphocytes (%) (Auto) 9 % (24-48) Monocytes (%) (Auto) 6 % (0-9) Eosinophils (%) (Auto) 0 % (0-3) Basophils (%) (Auto) 0 % (0-3) Neutrophils # (Auto) 9.7 x10^3uL (1.8-7.7) Lymphocytes # (Auto) 1.0 x10^3/uL (1.0-4.8) Monocytes # (Auto) 0.7 x10^3/uL (0.0-1.1) Eosinophils # (Auto) 0.0 x10^3/uL (0.0-0.7) Basophils # (Auto) 0.0 x10^3/uL (0.0-0.2) Sodium Level 144 mmol/L (136-145) Potassium Level 3.6 mmol/L (3.5-5.1) Chloride Level 108 mmol/L (98-107) Carbon Dioxide Level 29 mmol/L (21-32) Anion Gap 7 (6-14) Blood Urea Nitrogen 14 mg/dL (7-20) Creatinine 0.5 mg/dL (0.6-1.0) Estimated GFR (Cockcroft-Gault) 144.9 Glucose Level 138 mg/dL (70-99) Calcium Level 8.1 mg/dL (8.5-10.1) O2 Saturation 97 % (92-99) Arterial Blood pH 7.43 (7.35-7.45) Arterial Blood pCO2 at Patient Temp 44 mmHg (35-46) Arterial Blood pO2 at Patient Temp 91 mmHg (85-108) Arterial Blood HCO3 29 mmol/L (21-28) Arterial Blood Base Excess 4 mmol/L (-3-3) FiO2 70 Medications Active Scripts Medications Dose Route/Sig Max Daily Dose Days Date Category Dose Instructions Topiramate 25 Mg Tablet 1 Tab PO HS 07/28/18 Reported Phentermine Hcl 37.5 Mg Capsule 1 Cap PO [id number] 07/28/18 Reported Metformin Hcl 500 Mg Tablet 500 Mg PO BIDWMEALS 07/28/18 Reported Motrin Ib (Ibuprofen) 200 Mg Tablet 800 Mg PO Q8H PRN 08/15/17 Rx Tessalon Perle (Benzonatate) 100 Mg Capsule 100 Mg PO TID PRN 01/11/17 Rx Prednisone 20 Mg Tablet 40 Mg PO DAILY 08/06/16 Rx START MEDICATIONS ON 08/07/2016 Medrol (Methylprednisolone) 4 Mg Tab.ds.pk 1 Pkg PO UD 11/16/14 Rx Levaquin (Levofloxacin) 750 Mg Tablet 750 Mg PO DAILY06 11/16/14 Rx Advair 250-50 Diskus (Fluticasone/Salmeterol) 1 Puff Puff 1 Puff INH BID 11/16/14 Rx Escitalopram Oxalate 20 Mg Tablet 1 Tab PO DAILY 11/09/14 Reported Xanax (Alprazolam) 0.25 Mg Tablet 0.25 Mg PO PRN Q6HRS PRN 11/09/14 Reported Comments CXR 08/01 slowly improving bilateral lung infiltrates Impression . 1. Progressive hypoxic respiratory failure requiring mechanical ventilation 07/30. suspect ARDS/ diffuse pneumonia 2. Acute exacerbation of chronic obstructive pulmonary disease with an asthma component. 3. Diffuse lung infiltrates, suspect diffuse lung pneumonia/ ARDS 4. Morbid obesity, body mass index of 40. 5. H/O Anxiety/panic attacks. 6. Status post cholecystectomy. Plan . 1. AC mode, high flow oxygen/ PEEP 9/ slowly wean FIO2/ PEEP 2. Nebulized treatments. q 4 hr, pulmicort, solumedrol 3. sed rate (43). continue steroids 4. Bronch once oxygen requirement improves/ May not even need it as clinically improving 5. BS Abx 6. echo reviewed. normal EF/ PA pressures 7. mild diuresis prn 8. enteral nutrition 9. DVT prophylaxis d/w RN/RT/ cct 30 min MINI ORTIZ MD Aug 01, 2018 11:41
--- NOTE | 2018-08-01 12:18 | RAD ---
Portable abdomen, 08/01/2018: HISTORY: Check gastric tube placement A supine view of the abdomen demonstrates an NG tube extending into the body of the stomach. Gas is present in scattered portions of the colon in a nonspecific pattern. Surgical clips are present in the right upper quadrant compatible with a previous cholecystectomy. IMPRESSION: 1. The NG tube extends into the body of the stomach. 2. No acute abdominal abnormality is detected. Electronically signed by: Genaro Moreno MD (08/01/2018 12:15 PM) [facility]
--- NOTE | 2018-08-01 12:20 | RAD ---
Portable chest, 08/01/2018: HISTORY: Respiratory failure Comparison is made to yesterday's study. The ET tube tip lies well above the tom. The NG tube extends into the stomach. A right jugular central venous catheter extends into the right atrium. The heart size is unchanged. Patchy bilateral pulmonary infiltrates have improved. No pleural fluid or pneumothorax is evident. No new abnormality is detected. IMPRESSION: 1. Stable tube positions. 2. Improving bilateral pulmonary infiltrates. Electronically signed by: Genaro Moreno MD (08/01/2018 12:16 PM) [facility]
[2018-08-01] MEDS ORDERED: ERYTHROMYCIN ETHYLSUCCINATE 200 MG/5 ML PEG ONE (13:00)
--- NOTE | 2018-08-01 14:43 | PDOC ---
PROGRESS NOTES Chief Complaint Chief Complaint acute hypoxic respiratory failure, req. intubation sepsis, pneumonia EZ, acute asthma exacerbation morbid obesity, BMI 41\ possible ileus History of Present Illness History of Present Illness still on vent Sa02 improved, labs OK on broader abx since ICU transfer cont breathing tx, wean vent as able supportive care Vitals Vitals Vital Signs Date Time Temp Pulse Resp B/P (MAP) Pulse Ox O2 Delivery O2 Flow Rate FiO2 08/01/18 13:40 98 Ventilator 08/01/18 13:00 90 19 144/88 (106) 08/01/18 12:00 99.6 99.6 Physical Exam General: mild distress, Other (sedated) Heart: Regular rate, Normal S1, Normal S2 Lungs: Wheezing (resolved) Abdomen: Normal bowel sounds, Soft Extremities: No cyanosis, No edema, Normal pulses Skin: No rashes Labs LABS Laboratory Tests Test 07/31/18 18:12 07/31/18 23:12 08/01/18 05:20 08/01/18 05:30 Glucose (Fingerstick) 153 mg/dL (70-99) 128 mg/dL (70-99) 122 mg/dL (70-99) White Blood Count 11.4 x10^3/uL (4.0-11.0) Red Blood Count 3.61 x10^6/uL (3.50-5.40) Hemoglobin 9.9 g/dL (12.0-15.5) Hematocrit 29.5 % (36.0-47.0) Mean Corpuscular Volume 82 fL (79-100) Mean Corpuscular Hemoglobin 27 pg (25-35) Mean Corpuscular Hemoglobin Concent 33 g/dL (31-37) Red Cell Distribution Width 13.8 % (11.5-14.5) Platelet Count 210 x10^3/uL (140-400) Neutrophils (%) (Auto) 85 % (31-73) Lymphocytes (%) (Auto) 9 % (24-48) Monocytes (%) (Auto) 6 % (0-9) Eosinophils (%) (Auto) 0 % (0-3) Basophils (%) (Auto) 0 % (0-3) Neutrophils # (Auto) 9.7 x10^3uL (1.8-7.7) Lymphocytes # (Auto) 1.0 x10^3/uL (1.0-4.8) Monocytes # (Auto) 0.7 x10^3/uL (0.0-1.1) Eosinophils # (Auto) 0.0 x10^3/uL (0.0-0.7) Basophils # (Auto) 0.0 x10^3/uL (0.0-0.2) Sodium Level 144 mmol/L (136-145) Potassium Level 3.6 mmol/L (3.5-5.1) Chloride Level 108 mmol/L (98-107) Carbon Dioxide Level 29 mmol/L (21-32) Anion Gap 7 (6-14) Blood Urea Nitrogen 14 mg/dL (7-20) Creatinine 0.5 mg/dL (0.6-1.0) Estimated GFR (Cockcroft-Gault) 144.9 Glucose Level 138 mg/dL (70-99) Calcium Level 8.1 mg/dL (8.5-10.1) Test 08/01/18 07:50 08/01/18 12:04 O2 Saturation 97 % (92-99) Arterial Blood pH 7.43 (7.35-7.45) Arterial Blood pCO2 at Patient Temp 44 mmHg (35-46) Arterial Blood pO2 at Patient Temp 91 mmHg (85-108) Arterial Blood HCO3 29 mmol/L (21-28) Arterial Blood Base Excess 4 mmol/L (-3-3) FiO2 70 Glucose (Fingerstick) 131 mg/dL (70-99) Assessment and Plan Assessmemt and Plan Problems Medical Problems: (1) Pneumonia Status: Acute Comment Review of Relevant I have reviewed the following items [place] (where applicable) has been applied. Labs Laboratory Tests Test 07/31/18 08:45 07/31/18 09:01 07/31/18 09:35 07/31/18 12:07 O2 Saturation 94 % (92-99) Arterial Blood pH 7.43 (7.35-7.45) Arterial Blood pCO2 at Patient Temp 43 mmHg (35-46) Arterial Blood pO2 at Patient Temp 67 mmHg (85-108) Arterial Blood HCO3 28 mmol/L (21-28) Arterial Blood Base Excess 3 mmol/L (-3-3) FiO2 70 Glucose (Fingerstick) 149 mg/dL (70-99) 159 mg/dL (70-99) White Blood Count 13.8 x10^3/uL (4.0-11.0) Red Blood Count 4.03 x10^6/uL (3.50-5.40) Hemoglobin 10.9 g/dL (12.0-15.5) Hematocrit 32.9 % (36.0-47.0) Mean Corpuscular Volume 81 fL (79-100) Mean Corpuscular Hemoglobin 27 pg (25-35) Mean Corpuscular Hemoglobin Concent 33 g/dL (31-37) Red Cell Distribution Width 13.9 % (11.5-14.5) Platelet Count 197 x10^3/uL (140-400) Neutrophils (%) (Auto) 88 % (31-73) Lymphocytes (%) (Auto) 6 % (24-48) Monocytes (%) (Auto) 6 % (0-9) Eosinophils (%) (Auto) 0 % (0-3) Basophils (%) (Auto) 0 % (0-3) Neutrophils # (Auto) 12.1 x10^3uL (1.8-7.7) Lymphocytes # (Auto) 0.8 x10^3/uL (1.0-4.8) Monocytes # (Auto) 0.8 x10^3/uL (0.0-1.1) Eosinophils # (Auto) 0.0 x10^3/uL (0.0-0.7) Basophils # (Auto) 0.0 x10^3/uL (0.0-0.2) Segmented Neutrophils % 91 % (35-66) Band Neutrophils % 1 % (0-9) Lymphocytes % 3 % (24-48) Monocytes % 5 % (0-10) Platelet Estimate Adequate (ADEQUATE) Sodium Level 140 mmol/L (136-145) Potassium Level 3.5 mmol/L (3.5-5.1) Chloride Level 103 mmol/L (98-107) Carbon Dioxide Level 29 mmol/L (21-32) Anion Gap 8 (6-14) Blood Urea Nitrogen 13 mg/dL (7-20) Creatinine 0.6 mg/dL (0.6-1.0) Estimated GFR (Cockcroft-Gault) 117.4 BUN/Creatinine Ratio 22 (6-20) Glucose Level 159 mg/dL (70-99) Calcium Level 8.9 mg/dL (8.5-10.1) Total Bilirubin 0.5 mg/dL (0.2-1.0) Aspartate Amino Transf (AST/SGOT) 78 U/L (15-37) Alanine Aminotransferase (ALT/SGPT) 174 U/L (14-59) Alkaline Phosphatase 82 U/L (46-116) Total Protein 6.6 g/dL (6.4-8.2) Albumin 2.4 g/dL (3.4-5.0) Albumin/Globulin Ratio 0.6 (1.0-1.7) Test 07/31/18 13:30 07/31/18 18:12 07/31/18 23:12 08/01/18 05:20 Vancomycin Level Trough 10.8 mcg/mL (10.0-20.0) Vancomycin Last Dose Date 07/31/18 Vancomycin Last Dose Time 0600 Glucose (Fingerstick) 153 mg/dL (70-99) 128 mg/dL (70-99) 122 mg/dL (70-99) Test 08/01/18 05:30 08/01/18 07:50 08/01/18 12:04 White Blood Count 11.4 x10^3/uL (4.0-11.0) Red Blood Count 3.61 x10^6/uL (3.50-5.40) Hemoglobin 9.9 g/dL (12.0-15.5) Hematocrit 29.5 % (36.0-47.0) Mean Corpuscular Volume 82 fL (79-100) Mean Corpuscular Hemoglobin 27 pg (25-35) Mean Corpuscular Hemoglobin Concent 33 g/dL (31-37) Red Cell Distribution Width 13.8 % (11.5-14.5) Platelet Count 210 x10^3/uL (140-400) Neutrophils (%) (Auto) 85 % (31-73) Lymphocytes (%) (Auto) 9 % (24-48) Monocytes (%) (Auto) 6 % (0-9) Eosinophils (%) (Auto) 0 % (0-3) Basophils (%) (Auto) 0 % (0-3) Neutrophils # (Auto) 9.7 x10^3uL (1.8-7.7) Lymphocytes # (Auto) 1.0 x10^3/uL (1.0-4.8) Monocytes # (Auto) 0.7 x10^3/uL (0.0-1.1) Eosinophils # (Auto) 0.0 x10^3/uL (0.0-0.7) Basophils # (Auto) 0.0 x10^3/uL (0.0-0.2) Sodium Level 144 mmol/L (136-145) Potassium Level 3.6 mmol/L (3.5-5.1) Chloride Level 108 mmol/L (98-107) Carbon Dioxide Level 29 mmol/L (21-32) Anion Gap 7 (6-14) Blood Urea Nitrogen 14 mg/dL (7-20) Creatinine 0.5 mg/dL (0.6-1.0) Estimated GFR (Cockcroft-Gault) 144.9 Glucose Level 138 mg/dL (70-99) Calcium Level 8.1 mg/dL (8.5-10.1) O2 Saturation 97 % (92-99) Arterial Blood pH 7.43 (7.35-7.45) Arterial Blood pCO2 at Patient Temp 44 mmHg (35-46) Arterial Blood pO2 at Patient Temp 91 mmHg (85-108) Arterial Blood HCO3 29 mmol/L (21-28) Arterial Blood Base Excess 4 mmol/L (-3-3) FiO2 70 Glucose (Fingerstick) 131 mg/dL (70-99) Laboratory Tests Test 07/31/18 18:12 07/31/18 23:12 08/01/18 05:20 08/01/18 05:30 Glucose (Fingerstick) 153 mg/dL (70-99) 128 mg/dL (70-99) 122 mg/dL (70-99) White Blood Count 11.4 x10^3/uL (4.0-11.0) Red Blood Count 3.61 x10^6/uL (3.50-5.40) Hemoglobin 9.9 g/dL (12.0-15.5) Hematocrit 29.5 % (36.0-47.0) Mean Corpuscular Volume 82 fL (79-100) Mean Corpuscular Hemoglobin 27 pg (25-35) Mean Corpuscular Hemoglobin Concent 33 g/dL (31-37) Red Cell Distribution Width 13.8 % (11.5-14.5) Platelet Count 210 x10^3/uL (140-400) Neutrophils (%) (Auto) 85 % (31-73) Lymphocytes (%) (Auto) 9 % (24-48) Monocytes (%) (Auto) 6 % (0-9) Eosinophils (%) (Auto) 0 % (0-3) Basophils (%) (Auto) 0 % (0-3) Neutrophils # (Auto) 9.7 x10^3uL (1.8-7.7) Lymphocytes # (Auto) 1.0 x10^3/uL (1.0-4.8) Monocytes # (Auto) 0.7 x10^3/uL (0.0-1.1) Eosinophils # (Auto) 0.0 x10^3/uL (0.0-0.7) Basophils # (Auto) 0.0 x10^3/uL (0.0-0.2) Sodium Level 144 mmol/L (136-145) Potassium Level 3.6 mmol/L (3.5-5.1) Chloride Level 108 mmol/L (98-107) Carbon Dioxide Level 29 mmol/L (21-32) Anion Gap 7 (6-14) Blood Urea Nitrogen 14 mg/dL (7-20) Creatinine 0.5 mg/dL (0.6-1.0) Estimated GFR (Cockcroft-Gault) 144.9 Glucose Level 138 mg/dL (70-99) Calcium Level 8.1 mg/dL (8.5-10.1) Test 08/01/18 07:50 08/01/18 12:04 O2 Saturation 97 % (92-99) Arterial Blood pH 7.43 (7.35-7.45) Arterial Blood pCO2 at Patient Temp 44 mmHg (35-46) Arterial Blood pO2 at Patient Temp 91 mmHg (85-108) Arterial Blood HCO3 29 mmol/L (21-28) Arterial Blood Base Excess 4 mmol/L (-3-3) FiO2 70 Glucose (Fingerstick) 131 mg/dL (70-99) Microbiology 07/28/18 Blood Culture - Preliminary, Resulted NO GROWTH AFTER 4 DAYS Medications Current Medications Prednisone (Prednisone) 50 mg 1X ONCE PO Last administered on 07/28/18at 06:47; Start 07/28/18 at 07:00; Stop 07/28/18 at 07:01; Status DC Albuterol/ Ipratropium (Duoneb) 3 ml 1X ONCE NEB Last administered on at 06:37; Start 07/28/18 at 07:00; Stop 07/28/18 at 07:01; Status DC Sodium Chloride 1,000 ml @ 1,000 mls/hr 1X ONCE IV Last administered on at 07:03; Start 07/28/18 at 07:00; Stop 07/28/18 at 07:59; Status DC Albuterol Sulfate (Ventolin Neb Soln) 10 mg 1X ONCE CONT NEB Last administered on 07/28/18at 07:25; Start 07/28/18 at 07:00; Stop 07/28/18 at 07:02; Status DC Magnesium Sulfate 50 ml @ 25 mls/hr 1X ONCE IV Last administered on 07/28/18at 07:41; Start 07/28/18 at 07:15; Stop 07/28/18 at 09:14; Status DC Ceftriaxone Sodium 50 ml @ 100 mls/hr 1X ONCE IV Last administered on at 08:52; Start 07/28/18 at 08:15; Stop 07/28/18 at 08:44; Status DC Azithromycin 250 ml @ 250 mls/hr 1X ONCE IV Last administered on 07/28/18at 09: 20; Start 07/28/18 at 08:15; Stop 07/28/18 at 09:14; Status DC Acetaminophen/ Hydrocodone Bitart (Lortab 5/325) 2 tab 1X ONCE PO Last administered on 07/28/18at 08:49; Start 07/28/18 at 08:45; Stop 07/28/18 at 08:46; Status DC Ondansetron HCl (Zofran) 4 mg PRN Q8HRS PRN IV NAUSEA/VOMITING Last administered on 07/28/18at 22:40; Start 07/28/18 at 08:45; Stop 07/29/18 at 08:44; Status DC Acetaminophen (Tylenol) 650 mg PRN Q4HRS PRN PO FEVER Last administered on at 22:40; Start 07/28/18 at 08:45; Stop 07/29/18 at 08:44; Status DC Albuterol/ Ipratropium (Duoneb) 3 ml RTQID NEB Last administered on 07/29/18at 07 :29; Start 07/28/18 at 12:00; Stop 07/29/18 at 10:30; Status DC Acetaminophen/ Hydrocodone Bitart (Lortab 5/325) 2 tab Q6H PRN PO SEVERE PAIN Last administered on 07/29/18at 23:09; Start 07/28/18 at 08:45 Prednisone (Prednisone) 60 mg DAILY PO ; Start 07/29/18 at 09:00; Stop 07/29/18 at 09:00; Status DC Budesonide (Pulmicort) 0.5 mg RTBID NEB Last administered on 08/01/18at 07:46; Start 07/28/18 at 20:00 Budesonide (Pulmicort) 0.5 mg 1X ONCE NEB Last administered on 07/28/18at 11:06 ; Start 07/28/18 at 09:30; Stop 07/28/18 at 09:31; Status DC Albuterol Sulfate (Ventolin Neb Soln) 2.5 mg PRN Q4HRS PRN NEB SHORTNESS OF BREATH; Start 07/28/18 at 09:30 Azithromycin (Zithromax) 250 mg DAILY PO Last administered on 08/01/18at 08:54; Start 07/28/18 at 10:00; Stop 08/01/18 at 09:01; Status DC Alprazolam (Xanax) 0.25 mg PRN Q6HRS PRN PO ANXIETY / AGITATION Last administered on 07/29/18at 23:13; Start 07/28/18 at 12:45 Ibuprofen (Motrin) 800 mg PRN Q8HRS PRN PO PAIN MILD/INFLAMMATION; Start at 12:45 Benzonatate (Tessalon Perle) 100 mg PRN TID PRN PO COUGH 2ND CHOICE; Start 07/28 at 14:00 Citalopram Hydrobromide (CeleXA) 40 mg DAILY PO Last administered on 08/01/18at 08:54; Start 07/28/18 at 13:00 Metformin HCl (Glucophage) 500 mg BIDWMEALS PO Last administered on 07/29/18at 10 :07; Start 07/28/18 at 17:00; Stop 07/31/18 at 08:58; Status DC Promethazine HCl/ Codeine (Phenergan With Codeine) 5 ml PRN Q6HRS PRN PO COUGH 1ST CHOICE Last administered on 07/29/18at 16:25; Start 07/28/18 at 15:30 Guaifenesin (MUCINEX ER with DM) 1 tab BID PO Last administered on 07/30/18at 20: 57; Start 07/28/18 at 21:00; Stop 07/31/18 at 09:47; Status DC Lactobacillus Rhamnosus (Culturelle) 1 cap BID PO Last administered on at 21:44; Start 07/28/18 at 21:00; Stop 07/30/18 at 09:48; Status DC Prednisone (Prednisone) 30 mg DAILY PO Last administered on 07/29/18at 10:06; Start 07/29/18 at 09:00; Stop 07/31/18 at 08:58; Status DC Ceftriaxone Sodium 1 gm/ Dextrose 50 ml @ 100 mls/hr Q24H IV ; Start 07/29/18 at 09:00; Status UNV Ceftriaxone Sodium (Rocephin) 1 gm Q24H IVP Last administered on 07/29/18at 10:06 ; Start 07/29/18 at 09:00; Stop 07/30/18 at 10:07; Status DC Albuterol/ Ipratropium (Duoneb) 3 ml Q4HRS NEB Last administered on 08/01/18at 11 :58; Start 07/29/18 at 12:00 Budesonide (Pulmicort) 0.5 mg RTBID NEB ; Start 07/29/18 at 20:00; Status UNV Famotidine (Pepcid) 20 mg QHS PO Last administered on 07/29/18at 21:44; Start 07/29/18 at 21:00; Stop 07/30/18 at 10:10; Status DC Enoxaparin Sodium (Lovenox 40mg Syringe) 40 mg Q12H SQ Last administered on 08/01at 12:13; Start 07/29/18 at 12:30 Acetaminophen (Tylenol) 650 mg PRN Q6HRS PRN PO FEVER; Start 07/29/18 at 11:45 Ondansetron HCl (Zofran) 4 mg PRN Q6HRS PRN IV NAUSEA/VOMITING Last administered on 07/29/18at 15:23; Start 07/29/18 at 11:45 Morphine Sulfate (Morphine Sulfate) 2 mg PRN Q2HR PRN IV MODERATE TO SEVERE PAIN; Start 07/29/18 at 11:45 Tramadol HCl (Ultram) 50 mg PRN Q6HRS PRN PO MODERATE PAIN; Start 07/29/18 at 11 :45 Docusate Sodium (Colace) 100 mg PRN DAILY PRN PO CONSTIPATION; Start 07/29/18 at 11:45 Haloperidol Lactate (Haldol Inj) 2 mg PRN Q2HR PRN IVP AGITATION Last administered on 07/31/18at 09:26; Start 07/30/18 at 01:30 Lorazepam (Ativan) 0.25 mg PRN Q1HR PRN IV ANXIETY / AGITATION Last administered on 07/30/18at 03:30; Start 07/30/18 at 01:30 Propofol 100 ml @ As Directed STK-MED ONCE IV ; Start 07/30/18 at 04:12; Stop at 04:13; Status DC Etomidate (Amidate) 20 mg STK-MED ONCE IV ; Start 07/30/18 at 04:18; Stop at 04:19; Status DC Propofol 100 ml @ 0 mls/hr CONT PRN IV PER PROTOCOL Last administered on at 13:22; Start 07/30/18 at 04:30 Chlorhexidine Gluconate (Peridex) 15 ml BID MM Last administered on 08/01/18at 08 :53; Start 07/30/18 at 09:00 Midazolam HCl 100 ml @ 0 mls/hr CONT PRN IV PER PROTOCOL Last administered on at 03:42; Start 07/30/18 at 04:30 Piperacillin Sod/ Tazobactam Sod (Zosyn Per Pharmacy) 1 each PRN DAILY PRN MC SEE COMMENTS; Start 07/30/18 at 10:00 Vancomycin HCl (Vanco Per Pharmacy) 1 each PRN DAILY PRN MC SEE COMMENTS Last administered on 07/31/18at 16:20; Start 07/30/18 at 10:00 Methylprednisolone Sodium Succinate (SOLU-Medrol 125MG VIAL) 60 mg Q8HRS IV Last administered on 08/01/18at 13:22; Start 07/30/18 at 14:00 Pantoprazole Sodium (PROTONIX VIAL for IV PUSH) 40 mg DAILYAC IVP Last administered on 08/01/18at 08:53; Start 07/30/18 at 10:30 Piperacillin Sod/ Tazobactam Sod 3.375 gm/Sodium Chloride 50 ml @ 100 mls/hr Q6HRS IV Last administered on 08/01/18at 12:10; Start 07/30/18 at 12:00 Vancomycin HCl 2 gm/Sodium Chloride 500 ml @ 250 mls/hr 1X ONCE IV Last administered on 07/30/18at 10:31; Start 07/30/18 at 10:30; Stop 07/30/18 at 12:29; Status DC Vancomycin HCl 1.5 gm/Sodium Chloride 500 ml @ 250 mls/hr Q8H IV Last administered on 07/31/18at 14:10; Start 07/30/18 at 18:30; Stop 07/31/18 at 17:00; Status DC Vancomycin HCl (Vancomycin Trough Level) 1 each 1X ONCE MC Last administered on 07/31/18at 13:30; Start 07/31/18 at 13:30; Stop 07/31/18 at 13:31; Status DC Insulin Human Lispro (HumaLOG) 0-7 UNITS TIDWMEALS SQ ; Start 07/31/18 at 08:00; Stop 07/31/18 at 09:04; Status DC Dextrose (Dextrose 50%-Water Syringe) 12.5 gm PRN Q15MIN PRN IV SEE COMMENTS; Start 07/30/18 at 17:45 Insulin Human Lispro (HumaLOG) 0-7 UNITS Q6HRS SQ Last administered on at 18:14; Start 07/31/18 at 12:00 Vancomycin HCl 1.75 gm/Sodium Chloride 500 ml @ 250 mls/hr Q8H IV Last administered on 08/01/18at 13:48; Start 07/31/18 at 22:00 Vancomycin HCl (Vancomycin Trough Level) 1 each 1X ONCE MC ; Start 08/01/18 at 21:30; Stop 08/01/18 at 21:31 Erythromycin Ethylsuccinate (E.e.s. 200) 200 mg 1X ONCE PEG Last administered on 08/01/18at 12:19; Start 08/01/18 at 13:00; Stop 08/01/18 at 13:01; Status DC Active Scripts Active Motrin Ib (Ibuprofen) 200 Mg Tablet 800 Mg PO Q8H PRN Tessalon Perle (Benzonatate) 100 Mg Capsule 100 Mg PO TID PRN Prednisone 20 Mg Tablet 40 Mg PO DAILY START MEDICATIONS ON 08/07/2016 Medrol (Methylprednisolone) 4 Mg Tab.ds.pk 1 Pkg PO UD Levaquin (Levofloxacin) 750 Mg Tablet 750 Mg PO DAILY06 Advair 250-50 Diskus (Fluticasone/Salmeterol) 1 Puff Puff 1 Puff INH BID Reported Topiramate 25 Mg Tablet 1 Tab PO HS Phentermine Hcl 37.5 Mg Capsule 1 Cap PO DAILYWBKFT Metformin Hcl 500 Mg Tablet 500 Mg PO BIDWMEALS Escitalopram Oxalate 20 Mg Tablet 1 Tab PO DAILY Xanax (Alprazolam) 0.25 Mg Tablet 0.25 Mg PO PRN Q6HRS PRN Vitals/I & O Vital Sign - Last 24 Hours 07/31/18 07/31/18 07/31/18 07/31/18 15:00 15:21 16:00 16:00 Temp 99.3 99.3 Pulse 89 100 Resp 19 20 B/P (MAP) 137/69 (91) 143/66 (91) Pulse Ox 96 95 93 O2 Delivery Ventilator Ventilator Mechanical Ventilator Ventilator 07/31/18 07/31/18 07/31/18 07/31/18 17:00 17:31 18:00 19:00 Pulse 90 100 86 Resp 20 21 18 B/P (MAP) 128/71 (90) 132/62 (85) 125/65 (85) Pulse Ox 97 97 97 95 O2 Delivery Ventilator Ventilator Ventilator Ventilator 07/31/18 07/31/18 07/31/18 07/31/18 19:31 20:00 20:00 21:00 Temp 99.3 99.3 Pulse 87 90 Resp 20 20 B/P (MAP) 140/74 (96) 130/69 (89) Pulse Ox 95 96 98 O2 Delivery Ventilator Mechanical Ventilator Ventilator Ventilator 07/31/18 07/31/18 07/31/18 08/01/18 21:36 22:00 23:41 00:00 Pulse 85 Resp 20 B/P (MAP) 126/62 (83) Pulse Ox 97 94 96 O2 Delivery Ventilator Ventilator Ventilator Mechanical Ventilator 08/01/18 08/01/18 08/01/18 08/01/18 00:00 01:00 01:44 02:00 Temp 99.2 99.2 Pulse 84 84 82 Resp 20 20 20 B/P (MAP) 119/64 (82) 123/66 (85) 116/58 (77) Pulse Ox 95 94 96 95 O2 Delivery Ventilator Ventilator Ventilator Ventilator 08/01/18 08/01/18 08/01/18 08/01/18 03:00 03:55 04:00 04:12 Temp 99.5 99.5 Pulse 88 94 Resp 20 20 B/P (MAP) 134/63 (86) 125/67 (86) Pulse Ox 98 96 94 O2 Delivery Ventilator Ventilator Mechanical Ventilator Ventilator 08/01/18 08/01/18 08/01/18 08/01/18 05:02 05:46 06:00 07:00 Pulse 90 85 82 Resp 20 20 20 B/P (MAP) 121/63 (82) 126/61 (82) 141/78 (99) Pulse Ox 94 96 94 96 O2 Delivery Ventilator Ventilator Ventilator Ventilator 08/01/18 08/01/18 08/01/18 08/01/18 07:39 08:00 08:00 09:00 Temp 99.3 99.3 Pulse 90 90 Resp 18 20 B/P (MAP) 150/80 (103) 140/69 (92) Pulse Ox 95 98 92 O2 Delivery Ventilator Mechanical Ventilator Ventilator Ventilator 08/01/18 08/01/18 08/01/18 08/01/18 09:46 10:00 11:00 11:59 Pulse 90 90 Resp 20 22 B/P (MAP) 153/80 (104) 142/74 (96) Pulse Ox 94 94 94 94 O2 Delivery Ventilator Ventilator Ventilator Ventilator 08/01/18 08/01/18 08/01/18 08/01/18 12:00 12:00 13:00 13:40 Temp 99.6 99.6 Pulse 85 90 Resp 19 19 B/P (MAP) 146/83 (104) 144/88 (106) Pulse Ox 97 97 98 O2 Delivery Mechanical Ventilator Ventilator Ventilator Ventilator Intake and Output 07/31/18 07/31/18 08/01/18 15:00 23:00 07:00 Intake Total 825 ml 1991 ml 593.47 ml Output Total 625 ml 410 ml 500 ml Balance 200 ml 1581 ml 93.47 ml RAMON RUST MD Aug 01, 2018 14:43
[2018-08-01] MEDS: VANCOMYCIN PER PHARMACY MC PRN ×2 (15:08→22:16)
[2018-08-01] MEDS: HALOPERIDOL LACTATE 5 MG/ML VIAL. IVP PRN (15:48)
[2018-08-01] MEDS: MIDAZOLAM 100mg/100ml NS BAG 100 ML IV PRN (19:14)
[2018-08-01 21:13] LABS: VANC TR 10.3 mcg/mL (10.0-20.0)
[2018-08-01] MEDS: VANCOMYCIN 2 GM in IV NORMAL SALINE 500ML BAG 500 ML IV SCH (22:14)
[2018-08-02] VITALS (23 sets, daily range): BP systolic 128–179; BP diastolic 61–89
[2018-08-02] MEDS: PIPERACILLIN/TAZOBACTAM 3.375 GM in IV NORMAL SALINE 50ML 50 ML IV SCH ×4 (00:35→17:14)
[2018-08-02] MEDS: PROPOFOL 100 ML IV PRN ×8 (00:36→22:11)
[2018-08-02] MEDS: IPRATRPIUM/ALBUTEROL 0.5/2.5MG 3 ML NEBU. NEB SCH ×6 (04:00→19:36)
[2018-08-02] MEDS: VANCOMYCIN 2 GM in IV NORMAL SALINE 500ML BAG 500 ML IV SCH ×3 (05:51→22:56)
[2018-08-02] MEDS: methylPREDNISolone SOD SUCC PF 125 MG/2 ML VIAL. IV SCH ×3 (05:53→22:11)
[2018-08-02] MEDS: INSULIN LISPRO 300 UNITS/3 ML INSULN.PEN. SQ SCH ×3 (06:01→17:16)
[2018-08-02 06:46] LABS: ALBUMIN 2.4 g/dL (3.4-5.0); ALBUMIN/GLOBULIN RATIO 0.6 (1.0-1.7); BASO % 0 % (0-3); CREATININE 0.6 mg/dL (0.6-1.0); EOS % 0 % (0-3); GFR 117.4; HEMATOCRIT 31.1 % (36.0-47.0); HEMOGLOBIN 10.3 g/dL (12.0-15.5); LYMPH # 1.5 x10^3/uL (1.0-4.8); LYMPH % 13 % (24-48); MEAN CORPUSCULAR HEMOGLOBIN 27 pg (25-35); MEAN CORPUSCULAR HGB CONC 33 g/dL (31-37); MEAN CORPUSCULAR VOLUME 82 fL (79-100); MONO # 0.9 x10^3/uL (0.0-1.1); MONO % 8 % (0-9); NEUT # 9.3 x10^3uL (1.8-7.7); NEUT % 79 % (31-73); PLATELET COUNT 278 x10^3/uL (140-400); POTASSIUM 4.1 mmol/L (3.5-5.1); RED BLOOD COUNT 3.82 x10^6/uL (3.50-5.40); RED CELL DISTRIBUTION WIDTH 14.2 % (11.5-14.5); TOTAL BILIRUBIN 0.5 mg/dL (0.2-1.0); TOTAL PROTEIN 6.6 g/dL (6.4-8.2); WHITE BLOOD COUNT 11.8 x10^3/uL (4.0-11.0)
--- NOTE | 2018-08-02 07:13 | PDOC ---
PULMONARY PROGRESS NOTES Subjective patient intubated 07/30 after progressive hypoxia and failed BIPAP, sedated, on versed propofol, small ett protocol on 60% FIO2/ 9 PEEP Vitals Vital Signs Date Time Temp Pulse Resp B/P (MAP) Pulse Ox O2 Delivery O2 Flow Rate FiO2 08/02/18 06:08 77 20 160/75 (103) 97 Ventilator 08/02/18 03:34 99.9 99.9 Comments ros as mentioned as above, discussed w rn, other sys otherwise neg sedated on vent HEENT: Other (nc at perrl. nose throat clear.... neck, no lad, no thyromegaly) Lungs: Wheezing (resolved) Cardiovascular: S1, S2 Abdomen: Soft, Non-tender, Other (no mass) Extremities: Other (trace edema) Skin: Warm Labs Laboratory Tests Test 07/31/18 08:45 07/31/18 09:01 07/31/18 09:35 07/31/18 12:07 O2 Saturation 94 % (92-99) Arterial Blood pH 7.43 (7.35-7.45) Arterial Blood pCO2 at Patient Temp 43 mmHg (35-46) Arterial Blood pO2 at Patient Temp 67 mmHg (85-108) Arterial Blood HCO3 28 mmol/L (21-28) Arterial Blood Base Excess 3 mmol/L (-3-3) FiO2 70 Glucose (Fingerstick) 149 mg/dL (70-99) 159 mg/dL (70-99) White Blood Count 13.8 x10^3/uL (4.0-11.0) Red Blood Count 4.03 x10^6/uL (3.50-5.40) Hemoglobin 10.9 g/dL (12.0-15.5) Hematocrit 32.9 % (36.0-47.0) Mean Corpuscular Volume 81 fL (79-100) Mean Corpuscular Hemoglobin 27 pg (25-35) Mean Corpuscular Hemoglobin Concent 33 g/dL (31-37) Red Cell Distribution Width 13.9 % (11.5-14.5) Platelet Count 197 x10^3/uL (140-400) Neutrophils (%) (Auto) 88 % (31-73) Lymphocytes (%) (Auto) 6 % (24-48) Monocytes (%) (Auto) 6 % (0-9) Eosinophils (%) (Auto) 0 % (0-3) Basophils (%) (Auto) 0 % (0-3) Neutrophils # (Auto) 12.1 x10^3uL (1.8-7.7) Lymphocytes # (Auto) 0.8 x10^3/uL (1.0-4.8) Monocytes # (Auto) 0.8 x10^3/uL (0.0-1.1) Eosinophils # (Auto) 0.0 x10^3/uL (0.0-0.7) Basophils # (Auto) 0.0 x10^3/uL (0.0-0.2) Segmented Neutrophils % 91 % (35-66) Band Neutrophils % 1 % (0-9) Lymphocytes % 3 % (24-48) Monocytes % 5 % (0-10) Platelet Estimate Adequate (ADEQUATE) Sodium Level 140 mmol/L (136-145) Potassium Level 3.5 mmol/L (3.5-5.1) Chloride Level 103 mmol/L (98-107) Carbon Dioxide Level 29 mmol/L (21-32) Anion Gap 8 (6-14) Blood Urea Nitrogen 13 mg/dL (7-20) Creatinine 0.6 mg/dL (0.6-1.0) Estimated GFR (Cockcroft-Gault) 117.4 BUN/Creatinine Ratio 22 (6-20) Glucose Level 159 mg/dL (70-99) Calcium Level 8.9 mg/dL (8.5-10.1) Total Bilirubin 0.5 mg/dL (0.2-1.0) Aspartate Amino Transf (AST/SGOT) 78 U/L (15-37) Alanine Aminotransferase (ALT/SGPT) 174 U/L (14-59) Alkaline Phosphatase 82 U/L (46-116) Total Protein 6.6 g/dL (6.4-8.2) Albumin 2.4 g/dL (3.4-5.0) Albumin/Globulin Ratio 0.6 (1.0-1.7) Test 07/31/18 13:30 07/31/18 18:12 07/31/18 23:12 08/01/18 05:20 Vancomycin Level Trough 10.8 mcg/mL (10.0-20.0) Vancomycin Last Dose Date 07/31/18 Vancomycin Last Dose Time 0600 Glucose (Fingerstick) 153 mg/dL (70-99) 128 mg/dL (70-99) 122 mg/dL (70-99) Test 08/01/18 05:30 08/01/18 07:50 08/01/18 12:04 08/01/18 17:59 White Blood Count 11.4 x10^3/uL (4.0-11.0) Red Blood Count 3.61 x10^6/uL (3.50-5.40) Hemoglobin 9.9 g/dL (12.0-15.5) Hematocrit 29.5 % (36.0-47.0) Mean Corpuscular Volume 82 fL (79-100) Mean Corpuscular Hemoglobin 27 pg (25-35) Mean Corpuscular Hemoglobin Concent 33 g/dL (31-37) Red Cell Distribution Width 13.8 % (11.5-14.5) Platelet Count 210 x10^3/uL (140-400) Neutrophils (%) (Auto) 85 % (31-73) Lymphocytes (%) (Auto) 9 % (24-48) Monocytes (%) (Auto) 6 % (0-9) Eosinophils (%) (Auto) 0 % (0-3) Basophils (%) (Auto) 0 % (0-3) Neutrophils # (Auto) 9.7 x10^3uL (1.8-7.7) Lymphocytes # (Auto) 1.0 x10^3/uL (1.0-4.8) Monocytes # (Auto) 0.7 x10^3/uL (0.0-1.1) Eosinophils # (Auto) 0.0 x10^3/uL (0.0-0.7) Basophils # (Auto) 0.0 x10^3/uL (0.0-0.2) Sodium Level 144 mmol/L (136-145) Potassium Level 3.6 mmol/L (3.5-5.1) Chloride Level 108 mmol/L (98-107) Carbon Dioxide Level 29 mmol/L (21-32) Anion Gap 7 (6-14) Blood Urea Nitrogen 14 mg/dL (7-20) Creatinine 0.5 mg/dL (0.6-1.0) Estimated GFR (Cockcroft-Gault) 144.9 Glucose Level 138 mg/dL (70-99) Calcium Level 8.1 mg/dL (8.5-10.1) O2 Saturation 97 % (92-99) Arterial Blood pH 7.43 (7.35-7.45) Arterial Blood pCO2 at Patient Temp 44 mmHg (35-46) Arterial Blood pO2 at Patient Temp 91 mmHg (85-108) Arterial Blood HCO3 29 mmol/L (21-28) Arterial Blood Base Excess 4 mmol/L (-3-3) FiO2 70 Glucose (Fingerstick) 131 mg/dL (70-99) 152 mg/dL (70-99) Test 08/01/18 20:45 08/01/18 23:23 08/02/18 05:00 08/02/18 05:59 Vancomycin Level Trough 10.3 mcg/mL (10.0-20.0) Vancomycin Last Dose Date 08/01/18 Vancomycin Last Dose Time 0600 Glucose (Fingerstick) 142 mg/dL (70-99) 163 mg/dL (70-99) White Blood Count 11.8 x10^3/uL (4.0-11.0) Red Blood Count 3.82 x10^6/uL (3.50-5.40) Hemoglobin 10.3 g/dL (12.0-15.5) Hematocrit 31.1 % (36.0-47.0) Mean Corpuscular Volume 82 fL (79-100) Mean Corpuscular Hemoglobin 27 pg (25-35) Mean Corpuscular Hemoglobin Concent 33 g/dL (31-37) Red Cell Distribution Width 14.2 % (11.5-14.5) Platelet Count 278 x10^3/uL (140-400) Neutrophils (%) (Auto) 79 % (31-73) Lymphocytes (%) (Auto) 13 % (24-48) Monocytes (%) (Auto) 8 % (0-9) Eosinophils (%) (Auto) 0 % (0-3) Basophils (%) (Auto) 0 % (0-3) Neutrophils # (Auto) 9.3 x10^3uL (1.8-7.7) Lymphocytes # (Auto) 1.5 x10^3/uL (1.0-4.8) Monocytes # (Auto) 0.9 x10^3/uL (0.0-1.1) Eosinophils # (Auto) 0.0 x10^3/uL (0.0-0.7) Basophils # (Auto) 0.0 x10^3/uL (0.0-0.2) Sodium Level 143 mmol/L (136-145) Potassium Level 4.1 mmol/L (3.5-5.1) Chloride Level 105 mmol/L (98-107) Carbon Dioxide Level 31 mmol/L (21-32) Anion Gap 7 (6-14) Blood Urea Nitrogen 21 mg/dL (7-20) Creatinine 0.6 mg/dL (0.6-1.0) Estimated GFR (Cockcroft-Gault) 117.4 BUN/Creatinine Ratio 35 (6-20) Glucose Level 164 mg/dL (70-99) Calcium Level 9.0 mg/dL (8.5-10.1) Total Bilirubin 0.5 mg/dL (0.2-1.0) Aspartate Amino Transf (AST/SGOT) 199 U/L (15-37) Alanine Aminotransferase (ALT/SGPT) 370 U/L (14-59) Alkaline Phosphatase 103 U/L (46-116) Total Protein 6.6 g/dL (6.4-8.2) Albumin 2.4 g/dL (3.4-5.0) Albumin/Globulin Ratio 0.6 (1.0-1.7) Laboratory Tests Test 08/01/18 07:50 08/01/18 12:04 08/01/18 17:59 08/01/18 20:45 O2 Saturation 97 % (92-99) Arterial Blood pH 7.43 (7.35-7.45) Arterial Blood pCO2 at Patient Temp 44 mmHg (35-46) Arterial Blood pO2 at Patient Temp 91 mmHg (85-108) Arterial Blood HCO3 29 mmol/L (21-28) Arterial Blood Base Excess 4 mmol/L (-3-3) FiO2 70 Glucose (Fingerstick) 131 mg/dL (70-99) 152 mg/dL (70-99) Vancomycin Level Trough 10.3 mcg/mL (10.0-20.0) Vancomycin Last Dose Date 08/01/18 Vancomycin Last Dose Time 0600 Test 08/01/18 23:23 08/02/18 05:00 08/02/18 05:59 Glucose (Fingerstick) 142 mg/dL (70-99) 163 mg/dL (70-99) White Blood Count 11.8 x10^3/uL (4.0-11.0) Red Blood Count 3.82 x10^6/uL (3.50-5.40) Hemoglobin 10.3 g/dL (12.0-15.5) Hematocrit 31.1 % (36.0-47.0) Mean Corpuscular Volume 82 fL (79-100) Mean Corpuscular Hemoglobin 27 pg (25-35) Mean Corpuscular Hemoglobin Concent 33 g/dL (31-37) Red Cell Distribution Width 14.2 % (11.5-14.5) Platelet Count 278 x10^3/uL (140-400) Neutrophils (%) (Auto) 79 % (31-73) Lymphocytes (%) (Auto) 13 % (24-48) Monocytes (%) (Auto) 8 % (0-9) Eosinophils (%) (Auto) 0 % (0-3) Basophils (%) (Auto) 0 % (0-3) Neutrophils # (Auto) 9.3 x10^3uL (1.8-7.7) Lymphocytes # (Auto) 1.5 x10^3/uL (1.0-4.8) Monocytes # (Auto) 0.9 x10^3/uL (0.0-1.1) Eosinophils # (Auto) 0.0 x10^3/uL (0.0-0.7) Basophils # (Auto) 0.0 x10^3/uL (0.0-0.2) Sodium Level 143 mmol/L (136-145) Potassium Level 4.1 mmol/L (3.5-5.1) Chloride Level 105 mmol/L (98-107) Carbon Dioxide Level 31 mmol/L (21-32) Anion Gap 7 (6-14) Blood Urea Nitrogen 21 mg/dL (7-20) Creatinine 0.6 mg/dL (0.6-1.0) Estimated GFR (Cockcroft-Gault) 117.4 BUN/Creatinine Ratio 35 (6-20) Glucose Level 164 mg/dL (70-99) Calcium Level 9.0 mg/dL (8.5-10.1) Total Bilirubin 0.5 mg/dL (0.2-1.0) Aspartate Amino Transf (AST/SGOT) 199 U/L (15-37) Alanine Aminotransferase (ALT/SGPT) 370 U/L (14-59) Alkaline Phosphatase 103 U/L (46-116) Total Protein 6.6 g/dL (6.4-8.2) Albumin 2.4 g/dL (3.4-5.0) Albumin/Globulin Ratio 0.6 (1.0-1.7) Medications Active Scripts Medications Dose Route/Sig Max Daily Dose Days Date Category Dose Instructions Topiramate 25 Mg Tablet 1 Tab PO HS 07/28/18 Reported Phentermine Hcl 37.5 Mg Capsule 1 Cap PO [id number] 07/28/18 Reported Metformin Hcl 500 Mg Tablet 500 Mg PO BIDWMEALS 07/28/18 Reported Motrin Ib (Ibuprofen) 200 Mg Tablet 800 Mg PO Q8H PRN 08/15/17 Rx Tessalon Perle (Benzonatate) 100 Mg Capsule 100 Mg PO TID PRN 01/11/17 Rx Prednisone 20 Mg Tablet 40 Mg PO DAILY 08/06/16 Rx START MEDICATIONS ON 08/07/2016 Medrol (Methylprednisolone) 4 Mg Tab.ds.pk 1 Pkg PO UD 11/16/14 Rx Levaquin (Levofloxacin) 750 Mg Tablet 750 Mg PO DAILY06 11/16/14 Rx Advair 250-50 Diskus (Fluticasone/Salmeterol) 1 Puff Puff 1 Puff INH BID 11/16/14 Rx Escitalopram Oxalate 20 Mg Tablet 1 Tab PO DAILY 11/09/14 Reported Xanax (Alprazolam) 0.25 Mg Tablet 0.25 Mg PO PRN Q6HRS PRN 11/09/14 Reported Comments reviewed cxr b ll infilt, better, ett ok Impression . 1. acute ypoxic respiratory failure requiring mechanical ventilation 07/30. suspect ARDS/ diffuse pneumonia 2. Acute exacerbation of chronic obstructive pulmonary disease with an asthma component. 3. abnl cxr, Diffuse lung infiltrates, suspect diffuse lung pneumonia/ ARDS 4. Morbid obesity, body mass index of 40, prob ji. 5. H/O Anxiety/panic attacks. 6. Status post cholecystectomy. Plan . 1. AC mode, PEEP wean FIO2/ PEEP as tolerated, on versed, propofol, stop versed, add fentanyl if needed 2. add bronchodilators, cont pulmicort, solumedrol 60 q 8hrs 3. sed rate (43). continue steroids, no dose change 4. may need Bronch, monitor for now 5. BS Abx 6. echo reviewed. normal EF/ PA pressures 7. mild diuresis prn 8. enteral nutrition 9. lovenox and protonix for prophylaxis d/w RN/RT/ MARK WU MD Aug 02, 2018 07:13
[2018-08-02] MEDS: PANTOPRAZOLE IV PUSH 40 MG VIAL. IVP SCH (07:33)
[2018-08-02] MEDS: CHLORHEXIDINE 0.12% 15 ML MOUTHWASH. MM SCH ×2 (07:33→22:11)
[2018-08-02] MEDS: CITALOPRAM 20 MG TABLET. PO SCH (07:33)
[2018-08-02] MEDS: VANCOMYCIN PER PHARMACY MC PRN ×2 (08:26→23:09)
[2018-08-02] MEDS: BUDESONIDE 0.5 MG/2 ML NEBU. NEB SCH ×2 (08:40→19:36)
[2018-08-02 08:49] LABS: BASE EXCESS ABG 4 mmol/L (-3-3); HCO3 ABG 29 mmol/L (21-28); PCO2 ABG 43 mmHg (35-46); PO2 ABG 84 mmHg (85-108); SAT O2 ABG 96 % (92-99)
[2018-08-02 08:50] LABS: FIO2 ABG 60
[2018-08-02] MEDS ORDERED: ENALAPRILAT 1.25 MG/ML VIAL. IVP PRN (09:15)
[2018-08-02] MEDS: amLODIPine BESYLATE 2.5 MG TABLET PO SCH (09:43)
[2018-08-02] MEDS: ENOXAPARIN 40 MG/0.4 ML SYRINGE. SQ SCH (10:49)
--- NOTE | 2018-08-02 11:25 | RAD ---
EXAM: PORTABLE CHEST 1V DATE: 08/02/2018 7:06 AM INDICATION: ARDS COMPARISON: 08/01/2018 FINDINGS/ IMPRESSION: Right IJ vas or catheter tip projects over the distal SVC/cavoatrial junction. ET tube tip terminates approximately 4.5 cm above the tom. Enteric tube extends beyond the diaphragm the tip is not visualized. Cardiomediastinal silhouette is grossly stable accounting for differences in positioning and technique. Bilateral parenchymal opacities are grossly stable accounting for differences in projection and technique Trace bilateral pleural effusions. No pneumothorax. Electronically signed by: Jez Lim MD (08/02/2018 11:22 AM) [facility]
--- NOTE | 2018-08-02 11:34 | PDOC ---
G I PROGRESS NOTE Subjective Sedated on ventilator. Objective Staff report tolerating tube feedings. Physical Exam Lungs with few coarse sounds bilaterally. RRR Abdomen soft, not distended. Review of Relevant I have reviewed the following items [place] (where applicable) has been applied. Labs Laboratory Tests Test 07/31/18 12:07 07/31/18 13:30 07/31/18 18:12 07/31/18 23:12 Glucose (Fingerstick) 159 mg/dL (70-99) 153 mg/dL (70-99) 128 mg/dL (70-99) Vancomycin Level Trough 10.8 mcg/mL (10.0-20.0) Vancomycin Last Dose Date 07/31/18 Vancomycin Last Dose Time 0600 Test 08/01/18 05:20 08/01/18 05:30 08/01/18 07:50 08/01/18 12:04 Glucose (Fingerstick) 122 mg/dL (70-99) 131 mg/dL (70-99) White Blood Count 11.4 x10^3/uL (4.0-11.0) Red Blood Count 3.61 x10^6/uL (3.50-5.40) Hemoglobin 9.9 g/dL (12.0-15.5) Hematocrit 29.5 % (36.0-47.0) Mean Corpuscular Volume 82 fL (79-100) Mean Corpuscular Hemoglobin 27 pg (25-35) Mean Corpuscular Hemoglobin Concent 33 g/dL (31-37) Red Cell Distribution Width 13.8 % (11.5-14.5) Platelet Count 210 x10^3/uL (140-400) Neutrophils (%) (Auto) 85 % (31-73) Lymphocytes (%) (Auto) 9 % (24-48) Monocytes (%) (Auto) 6 % (0-9) Eosinophils (%) (Auto) 0 % (0-3) Basophils (%) (Auto) 0 % (0-3) Neutrophils # (Auto) 9.7 x10^3uL (1.8-7.7) Lymphocytes # (Auto) 1.0 x10^3/uL (1.0-4.8) Monocytes # (Auto) 0.7 x10^3/uL (0.0-1.1) Eosinophils # (Auto) 0.0 x10^3/uL (0.0-0.7) Basophils # (Auto) 0.0 x10^3/uL (0.0-0.2) Sodium Level 144 mmol/L (136-145) Potassium Level 3.6 mmol/L (3.5-5.1) Chloride Level 108 mmol/L (98-107) Carbon Dioxide Level 29 mmol/L (21-32) Anion Gap 7 (6-14) Blood Urea Nitrogen 14 mg/dL (7-20) Creatinine 0.5 mg/dL (0.6-1.0) Estimated GFR (Cockcroft-Gault) 144.9 Glucose Level 138 mg/dL (70-99) Calcium Level 8.1 mg/dL (8.5-10.1) O2 Saturation 97 % (92-99) Arterial Blood pH 7.43 (7.35-7.45) Arterial Blood pCO2 at Patient Temp 44 mmHg (35-46) Arterial Blood pO2 at Patient Temp 91 mmHg (85-108) Arterial Blood HCO3 29 mmol/L (21-28) Arterial Blood Base Excess 4 mmol/L (-3-3) FiO2 70 Test 08/01/18 17:59 08/01/18 20:45 08/01/18 23:23 08/02/18 05:00 Glucose (Fingerstick) 152 mg/dL (70-99) 142 mg/dL (70-99) Vancomycin Level Trough 10.3 mcg/mL (10.0-20.0) Vancomycin Last Dose Date 08/01/18 Vancomycin Last Dose Time 0600 White Blood Count 11.8 x10^3/uL (4.0-11.0) Red Blood Count 3.82 x10^6/uL (3.50-5.40) Hemoglobin 10.3 g/dL (12.0-15.5) Hematocrit 31.1 % (36.0-47.0) Mean Corpuscular Volume 82 fL (79-100) Mean Corpuscular Hemoglobin 27 pg (25-35) Mean Corpuscular Hemoglobin Concent 33 g/dL (31-37) Red Cell Distribution Width 14.2 % (11.5-14.5) Platelet Count 278 x10^3/uL (140-400) Neutrophils (%) (Auto) 79 % (31-73) Lymphocytes (%) (Auto) 13 % (24-48) Monocytes (%) (Auto) 8 % (0-9) Eosinophils (%) (Auto) 0 % (0-3) Basophils (%) (Auto) 0 % (0-3) Neutrophils # (Auto) 9.3 x10^3uL (1.8-7.7) Lymphocytes # (Auto) 1.5 x10^3/uL (1.0-4.8) Monocytes # (Auto) 0.9 x10^3/uL (0.0-1.1) Eosinophils # (Auto) 0.0 x10^3/uL (0.0-0.7) Basophils # (Auto) 0.0 x10^3/uL (0.0-0.2) Sodium Level 143 mmol/L (136-145) Potassium Level 4.1 mmol/L (3.5-5.1) Chloride Level 105 mmol/L (98-107) Carbon Dioxide Level 31 mmol/L (21-32) Anion Gap 7 (6-14) Blood Urea Nitrogen 21 mg/dL (7-20) Creatinine 0.6 mg/dL (0.6-1.0) Estimated GFR (Cockcroft-Gault) 117.4 BUN/Creatinine Ratio 35 (6-20) Glucose Level 164 mg/dL (70-99) Calcium Level 9.0 mg/dL (8.5-10.1) Total Bilirubin 0.5 mg/dL (0.2-1.0) Aspartate Amino Transf (AST/SGOT) 199 U/L (15-37) Alanine Aminotransferase (ALT/SGPT) 370 U/L (14-59) Alkaline Phosphatase 103 U/L (46-116) Total Protein 6.6 g/dL (6.4-8.2) Albumin 2.4 g/dL (3.4-5.0) Albumin/Globulin Ratio 0.6 (1.0-1.7) Test 08/02/18 05:59 08/02/18 08:40 08/02/18 10:57 Glucose (Fingerstick) 163 mg/dL (70-99) 139 mg/dL (70-99) O2 Saturation 96 % (92-99) Arterial Blood pH 7.45 (7.35-7.45) Arterial Blood pCO2 at Patient Temp 43 mmHg (35-46) Arterial Blood pO2 at Patient Temp 84 mmHg (85-108) Arterial Blood HCO3 29 mmol/L (21-28) Arterial Blood Base Excess 4 mmol/L (-3-3) FiO2 60 Laboratory Tests Test 08/01/18 12:04 08/01/18 17:59 08/01/18 20:45 08/01/18 23:23 Glucose (Fingerstick) 131 mg/dL (70-99) 152 mg/dL (70-99) 142 mg/dL (70-99) Vancomycin Level Trough 10.3 mcg/mL (10.0-20.0) Vancomycin Last Dose Date 08/01/18 Vancomycin Last Dose Time 0600 Test 08/02/18 05:00 08/02/18 05:59 08/02/18 08:40 08/02/18 10:57 White Blood Count 11.8 x10^3/uL (4.0-11.0) Red Blood Count 3.82 x10^6/uL (3.50-5.40) Hemoglobin 10.3 g/dL (12.0-15.5) Hematocrit 31.1 % (36.0-47.0) Mean Corpuscular Volume 82 fL (79-100) Mean Corpuscular Hemoglobin 27 pg (25-35) Mean Corpuscular Hemoglobin Concent 33 g/dL (31-37) Red Cell Distribution Width 14.2 % (11.5-14.5) Platelet Count 278 x10^3/uL (140-400) Neutrophils (%) (Auto) 79 % (31-73) Lymphocytes (%) (Auto) 13 % (24-48) Monocytes (%) (Auto) 8 % (0-9) Eosinophils (%) (Auto) 0 % (0-3) Basophils (%) (Auto) 0 % (0-3) Neutrophils # (Auto) 9.3 x10^3uL (1.8-7.7) Lymphocytes # (Auto) 1.5 x10^3/uL (1.0-4.8) Monocytes # (Auto) 0.9 x10^3/uL (0.0-1.1) Eosinophils # (Auto) 0.0 x10^3/uL (0.0-0.7) Basophils # (Auto) 0.0 x10^3/uL (0.0-0.2) Sodium Level 143 mmol/L (136-145) Potassium Level 4.1 mmol/L (3.5-5.1) Chloride Level 105 mmol/L (98-107) Carbon Dioxide Level 31 mmol/L (21-32) Anion Gap 7 (6-14) Blood Urea Nitrogen 21 mg/dL (7-20) Creatinine 0.6 mg/dL (0.6-1.0) Estimated GFR (Cockcroft-Gault) 117.4 BUN/Creatinine Ratio 35 (6-20) Glucose Level 164 mg/dL (70-99) Calcium Level 9.0 mg/dL (8.5-10.1) Total Bilirubin 0.5 mg/dL (0.2-1.0) Aspartate Amino Transf (AST/SGOT) 199 U/L (15-37) Alanine Aminotransferase (ALT/SGPT) 370 U/L (14-59) Alkaline Phosphatase 103 U/L (46-116) Total Protein 6.6 g/dL (6.4-8.2) Albumin 2.4 g/dL (3.4-5.0) Albumin/Globulin Ratio 0.6 (1.0-1.7) Glucose (Fingerstick) 163 mg/dL (70-99) 139 mg/dL (70-99) O2 Saturation 96 % (92-99) Arterial Blood pH 7.45 (7.35-7.45) Arterial Blood pCO2 at Patient Temp 43 mmHg (35-46) Arterial Blood pO2 at Patient Temp 84 mmHg (85-108) Arterial Blood HCO3 29 mmol/L (21-28) Arterial Blood Base Excess 4 mmol/L (-3-3) FiO2 60 Microbiology 07/28/18 Blood Culture - Final, Complete NO GROWTH AFTER 5 DAYS Drop in hemoglobin w/o overt bleeding. Elevated transaminases; AP and bili normal. Vitals/I & O Vital Sign - Last 24 Hours 08/01/18 08/01/18 08/01/18 08/01/18 11:59 12:00 12:00 13:00 Temp 99.6 99.6 Pulse 85 90 Resp 19 19 B/P (MAP) 146/83 (104) 144/88 (106) Pulse Ox 94 97 97 O2 Delivery Ventilator Mechanical Ventilator Ventilator Ventilator 9/7/08/01/18 08/01/18 08/01/18 13:40 14:00 16:00 16:00 Temp 99.4 99.4 Pulse 88 78 Resp 18 20 B/P (MAP) 149/65 (93) 143/81 (101) Pulse Ox 98 97 99 O2 Delivery Ventilator Ventilator Ventilator Mechanical Ventilator 08/01/18 08/01/18 08/01/18 08/01/18 16:14 17:51 18:00 19:07 Pulse 76 75 Resp 20 20 B/P (MAP) 150/75 (100) 154/86 (108) Pulse Ox 98 98 97 97 O2 Delivery Ventilator Ventilator Ventilator Ventilator 08/01/18 08/01/18 08/01/18 08/01/18 19:10 19:46 20:00 21:00 Temp 99.2 99.2 Pulse 77 81 Resp 20 20 B/P (MAP) 135/76 (95) 147/76 (99) Pulse Ox 98 96 96 O2 Delivery Ventilator Mechanical Ventilator Ventilator Ventilator 08/01/18 08/01/18 08/01/18 08/01/18 21:50 22:00 23:00 23:54 Pulse 83 82 Resp 20 20 B/P (MAP) 143/81 (101) 142/69 (93) Pulse Ox 98 96 97 O2 Delivery Ventilator Ventilator Ventilator Mechanical Ventilator 08/02/18 08/02/18 08/02/18 08/02/18 00:00 00:14 01:04 02:00 Temp 99.7 99.7 Pulse 88 80 82 Resp 20 20 20 B/P (MAP) 146/73 (97) 154/74 (100) 149/75 (99) Pulse Ox 95 98 96 96 O2 Delivery Ventilator Ventilator Ventilator Ventilator 08/02/18 08/02/18 08/02/18 08/02/18 02:01 03:00 03:34 04:02 Temp 99.9 99.9 Pulse 82 Resp 20 B/P (MAP) 148/75 (99) Pulse Ox 98 96 O2 Delivery Ventilator Ventilator Mechanical Ventilator 08/02/18 08/02/18 08/02/18 08/02/18 05:00 05:40 06:08 07:00 Temp 99.2 99.2 Pulse 78 77 68 Resp 20 20 18 B/P (MAP) 155/84 (107) 160/75 (103) 168/82 (110) Pulse Ox 97 98 97 96 O2 Delivery Ventilator Ventilator Ventilator Ventilator 08/02/18 08/02/18 08/02/18 08/02/18 07:24 07:52 08:00 08:00 Pulse 68 Resp 18 B/P (MAP) 174/89 (117) Pulse Ox 97 97 97 O2 Delivery Ventilator Ventilator Mechanical Ventilator 08/02/18 08/02/18 08/02/18 08/02/18 08:56 09:00 09:02 09:43 Pulse 72 Resp 20 18 B/P (MAP) 179/85 (116) 179/85 Pulse Ox 94 97 O2 Delivery Ventilator Ventilator Ventilator 08/02/18 08/02/18 08/02/18 09:45 10:00 11:00 Temp 99.3 99.3 Pulse 69 70 Resp 20 18 B/P (MAP) 139/66 (90) 152/72 (98) Pulse Ox 93 96 96 O2 Delivery Ventilator Ventilator Ventilator Intake and Output 08/01/18 08/01/18 08/02/18 15:00 23:00 07:00 Intake Total 205 ml 1785 ml 2930.9 ml Output Total 370 ml 445 ml 795 ml Balance -165 ml 1340 ml 2135.9 ml Problem List Problems Medical Problems: (1) Pneumonia Status: Acute Assessment Tolerating tube feedings now. Elevated AST, ALT; suspect acute elevation in right heart pressures the culprit. Anemia, no bleeding. Plan of Care: Continue current Tx, Mgmt Plan of Care Note Monitor for any bleeding. Continue PPI. KATHRYN ROCA MD Aug 02, 2018 11:34
--- NOTE | 2018-08-02 14:04 | PDOC ---
PROGRESS NOTES Chief Complaint Chief Complaint acute hypoxic respiratory failure, req. intubation sepsis, pneumonia EZ, acute asthma exacerbation morbid obesity, BMI 41 w/ mod/sever malnutrition was POA possible ileus transaminitis, NOS History of Present Illness History of Present Illness still on vent Sa02 improved, labs OK on broader abx since ICU transfer cont breathing tx, wean vent as able supportive care Vitals Vitals Vital Signs Date Time Temp Pulse Resp B/P (MAP) Pulse Ox O2 Delivery O2 Flow Rate FiO2 08/02/18 13:00 96 Ventilator 08/02/18 13:00 70 20 140/63 (88) 08/02/18 11:00 99.3 99.3 Physical Exam General: mild distress, Other (sedated) Heart: Regular rate, Normal S1, Normal S2 Lungs: Wheezing (resolved) Abdomen: Normal bowel sounds, Soft Extremities: No cyanosis, No edema, Normal pulses Skin: No rashes Labs LABS Laboratory Tests Test 08/01/18 17:59 08/01/18 20:45 08/01/18 23:23 08/02/18 05:00 Glucose (Fingerstick) 152 mg/dL (70-99) 142 mg/dL (70-99) Vancomycin Level Trough 10.3 mcg/mL (10.0-20.0) Vancomycin Last Dose Date 08/01/18 Vancomycin Last Dose Time 0600 White Blood Count 11.8 x10^3/uL (4.0-11.0) Red Blood Count 3.82 x10^6/uL (3.50-5.40) Hemoglobin 10.3 g/dL (12.0-15.5) Hematocrit 31.1 % (36.0-47.0) Mean Corpuscular Volume 82 fL (79-100) Mean Corpuscular Hemoglobin 27 pg (25-35) Mean Corpuscular Hemoglobin Concent 33 g/dL (31-37) Red Cell Distribution Width 14.2 % (11.5-14.5) Platelet Count 278 x10^3/uL (140-400) Neutrophils (%) (Auto) 79 % (31-73) Lymphocytes (%) (Auto) 13 % (24-48) Monocytes (%) (Auto) 8 % (0-9) Eosinophils (%) (Auto) 0 % (0-3) Basophils (%) (Auto) 0 % (0-3) Neutrophils # (Auto) 9.3 x10^3uL (1.8-7.7) Lymphocytes # (Auto) 1.5 x10^3/uL (1.0-4.8) Monocytes # (Auto) 0.9 x10^3/uL (0.0-1.1) Eosinophils # (Auto) 0.0 x10^3/uL (0.0-0.7) Basophils # (Auto) 0.0 x10^3/uL (0.0-0.2) Sodium Level 143 mmol/L (136-145) Potassium Level 4.1 mmol/L (3.5-5.1) Chloride Level 105 mmol/L (98-107) Carbon Dioxide Level 31 mmol/L (21-32) Anion Gap 7 (6-14) Blood Urea Nitrogen 21 mg/dL (7-20) Creatinine 0.6 mg/dL (0.6-1.0) Estimated GFR (Cockcroft-Gault) 117.4 BUN/Creatinine Ratio 35 (6-20) Glucose Level 164 mg/dL (70-99) Calcium Level 9.0 mg/dL (8.5-10.1) Total Bilirubin 0.5 mg/dL (0.2-1.0) Aspartate Amino Transf (AST/SGOT) 199 U/L (15-37) Alanine Aminotransferase (ALT/SGPT) 370 U/L (14-59) Alkaline Phosphatase 103 U/L (46-116) Total Protein 6.6 g/dL (6.4-8.2) Albumin 2.4 g/dL (3.4-5.0) Albumin/Globulin Ratio 0.6 (1.0-1.7) Test 08/02/18 05:59 08/02/18 08:40 08/02/18 10:57 Glucose (Fingerstick) 163 mg/dL (70-99) 139 mg/dL (70-99) O2 Saturation 96 % (92-99) Arterial Blood pH 7.45 (7.35-7.45) Arterial Blood pCO2 at Patient Temp 43 mmHg (35-46) Arterial Blood pO2 at Patient Temp 84 mmHg (85-108) Arterial Blood HCO3 29 mmol/L (21-28) Arterial Blood Base Excess 4 mmol/L (-3-3) FiO2 60 Assessment and Plan Assessmemt and Plan Problems Medical Problems: (1) Pneumonia Status: Acute Comment Review of Relevant I have reviewed the following items [place] (where applicable) has been applied. Labs Laboratory Tests Test 07/31/18 18:12 07/31/18 23:12 08/01/18 05:20 08/01/18 05:30 Glucose (Fingerstick) 153 mg/dL (70-99) 128 mg/dL (70-99) 122 mg/dL (70-99) White Blood Count 11.4 x10^3/uL (4.0-11.0) Red Blood Count 3.61 x10^6/uL (3.50-5.40) Hemoglobin 9.9 g/dL (12.0-15.5) Hematocrit 29.5 % (36.0-47.0) Mean Corpuscular Volume 82 fL (79-100) Mean Corpuscular Hemoglobin 27 pg (25-35) Mean Corpuscular Hemoglobin Concent 33 g/dL (31-37) Red Cell Distribution Width 13.8 % (11.5-14.5) Platelet Count 210 x10^3/uL (140-400) Neutrophils (%) (Auto) 85 % (31-73) Lymphocytes (%) (Auto) 9 % (24-48) Monocytes (%) (Auto) 6 % (0-9) Eosinophils (%) (Auto) 0 % (0-3) Basophils (%) (Auto) 0 % (0-3) Neutrophils # (Auto) 9.7 x10^3uL (1.8-7.7) Lymphocytes # (Auto) 1.0 x10^3/uL (1.0-4.8) Monocytes # (Auto) 0.7 x10^3/uL (0.0-1.1) Eosinophils # (Auto) 0.0 x10^3/uL (0.0-0.7) Basophils # (Auto) 0.0 x10^3/uL (0.0-0.2) Sodium Level 144 mmol/L (136-145) Potassium Level 3.6 mmol/L (3.5-5.1) Chloride Level 108 mmol/L (98-107) Carbon Dioxide Level 29 mmol/L (21-32) Anion Gap 7 (6-14) Blood Urea Nitrogen 14 mg/dL (7-20) Creatinine 0.5 mg/dL (0.6-1.0) Estimated GFR (Cockcroft-Gault) 144.9 Glucose Level 138 mg/dL (70-99) Calcium Level 8.1 mg/dL (8.5-10.1) Test 08/01/18 07:50 08/01/18 12:04 08/01/18 17:59 08/01/18 20:45 O2 Saturation 97 % (92-99) Arterial Blood pH 7.43 (7.35-7.45) Arterial Blood pCO2 at Patient Temp 44 mmHg (35-46) Arterial Blood pO2 at Patient Temp 91 mmHg (85-108) Arterial Blood HCO3 29 mmol/L (21-28) Arterial Blood Base Excess 4 mmol/L (-3-3) FiO2 70 Glucose (Fingerstick) 131 mg/dL (70-99) 152 mg/dL (70-99) Vancomycin Level Trough 10.3 mcg/mL (10.0-20.0) Vancomycin Last Dose Date 08/01/18 Vancomycin Last Dose Time 0600 Test 08/01/18 23:23 08/02/18 05:00 08/02/18 05:59 08/02/18 08:40 Glucose (Fingerstick) 142 mg/dL (70-99) 163 mg/dL (70-99) White Blood Count 11.8 x10^3/uL (4.0-11.0) Red Blood Count 3.82 x10^6/uL (3.50-5.40) Hemoglobin 10.3 g/dL (12.0-15.5) Hematocrit 31.1 % (36.0-47.0) Mean Corpuscular Volume 82 fL (79-100) Mean Corpuscular Hemoglobin 27 pg (25-35) Mean Corpuscular Hemoglobin Concent 33 g/dL (31-37) Red Cell Distribution Width 14.2 % (11.5-14.5) Platelet Count 278 x10^3/uL (140-400) Neutrophils (%) (Auto) 79 % (31-73) Lymphocytes (%) (Auto) 13 % (24-48) Monocytes (%) (Auto) 8 % (0-9) Eosinophils (%) (Auto) 0 % (0-3) Basophils (%) (Auto) 0 % (0-3) Neutrophils # (Auto) 9.3 x10^3uL (1.8-7.7) Lymphocytes # (Auto) 1.5 x10^3/uL (1.0-4.8) Monocytes # (Auto) 0.9 x10^3/uL (0.0-1.1) Eosinophils # (Auto) 0.0 x10^3/uL (0.0-0.7) Basophils # (Auto) 0.0 x10^3/uL (0.0-0.2) Sodium Level 143 mmol/L (136-145) Potassium Level 4.1 mmol/L (3.5-5.1) Chloride Level 105 mmol/L (98-107) Carbon Dioxide Level 31 mmol/L (21-32) Anion Gap 7 (6-14) Blood Urea Nitrogen 21 mg/dL (7-20) Creatinine 0.6 mg/dL (0.6-1.0) Estimated GFR (Cockcroft-Gault) 117.4 BUN/Creatinine Ratio 35 (6-20) Glucose Level 164 mg/dL (70-99) Calcium Level 9.0 mg/dL (8.5-10.1) Total Bilirubin 0.5 mg/dL (0.2-1.0) Aspartate Amino Transf (AST/SGOT) 199 U/L (15-37) Alanine Aminotransferase (ALT/SGPT) 370 U/L (14-59) Alkaline Phosphatase 103 U/L (46-116) Total Protein 6.6 g/dL (6.4-8.2) Albumin 2.4 g/dL (3.4-5.0) Albumin/Globulin Ratio 0.6 (1.0-1.7) O2 Saturation 96 % (92-99) Arterial Blood pH 7.45 (7.35-7.45) Arterial Blood pCO2 at Patient Temp 43 mmHg (35-46) Arterial Blood pO2 at Patient Temp 84 mmHg (85-108) Arterial Blood HCO3 29 mmol/L (21-28) Arterial Blood Base Excess 4 mmol/L (-3-3) FiO2 60 Test 08/02/18 10:57 Glucose (Fingerstick) 139 mg/dL (70-99) Laboratory Tests Test 08/01/18 17:59 08/01/18 20:45 08/01/18 23:23 08/02/18 05:00 Glucose (Fingerstick) 152 mg/dL (70-99) 142 mg/dL (70-99) Vancomycin Level Trough 10.3 mcg/mL (10.0-20.0) Vancomycin Last Dose Date 08/01/18 Vancomycin Last Dose Time 0600 White Blood Count 11.8 x10^3/uL (4.0-11.0) Red Blood Count 3.82 x10^6/uL (3.50-5.40) Hemoglobin 10.3 g/dL (12.0-15.5) Hematocrit 31.1 % (36.0-47.0) Mean Corpuscular Volume 82 fL (79-100) Mean Corpuscular Hemoglobin 27 pg (25-35) Mean Corpuscular Hemoglobin Concent 33 g/dL (31-37) Red Cell Distribution Width 14.2 % (11.5-14.5) Platelet Count 278 x10^3/uL (140-400) Neutrophils (%) (Auto) 79 % (31-73) Lymphocytes (%) (Auto) 13 % (24-48) Monocytes (%) (Auto) 8 % (0-9) Eosinophils (%) (Auto) 0 % (0-3) Basophils (%) (Auto) 0 % (0-3) Neutrophils # (Auto) 9.3 x10^3uL (1.8-7.7) Lymphocytes # (Auto) 1.5 x10^3/uL (1.0-4.8) Monocytes # (Auto) 0.9 x10^3/uL (0.0-1.1) Eosinophils # (Auto) 0.0 x10^3/uL (0.0-0.7) Basophils # (Auto) 0.0 x10^3/uL (0.0-0.2) Sodium Level 143 mmol/L (136-145) Potassium Level 4.1 mmol/L (3.5-5.1) Chloride Level 105 mmol/L (98-107) Carbon Dioxide Level 31 mmol/L (21-32) Anion Gap 7 (6-14) Blood Urea Nitrogen 21 mg/dL (7-20) Creatinine 0.6 mg/dL (0.6-1.0) Estimated GFR (Cockcroft-Gault) 117.4 BUN/Creatinine Ratio 35 (6-20) Glucose Level 164 mg/dL (70-99) Calcium Level 9.0 mg/dL (8.5-10.1) Total Bilirubin 0.5 mg/dL (0.2-1.0) Aspartate Amino Transf (AST/SGOT) 199 U/L (15-37) Alanine Aminotransferase (ALT/SGPT) 370 U/L (14-59) Alkaline Phosphatase 103 U/L (46-116) Total Protein 6.6 g/dL (6.4-8.2) Albumin 2.4 g/dL (3.4-5.0) Albumin/Globulin Ratio 0.6 (1.0-1.7) Test 08/02/18 05:59 08/02/18 08:40 08/02/18 10:57 Glucose (Fingerstick) 163 mg/dL (70-99) 139 mg/dL (70-99) O2 Saturation 96 % (92-99) Arterial Blood pH 7.45 (7.35-7.45) Arterial Blood pCO2 at Patient Temp 43 mmHg (35-46) Arterial Blood pO2 at Patient Temp 84 mmHg (85-108) Arterial Blood HCO3 29 mmol/L (21-28) Arterial Blood Base Excess 4 mmol/L (-3-3) FiO2 60 Microbiology 07/28/18 Blood Culture - Final, Complete NO GROWTH AFTER 5 DAYS Medications Current Medications Prednisone (Prednisone) 50 mg 1X ONCE PO Last administered on 07/28/18at 06:47; Start 07/28/18 at 07:00; Stop 07/28/18 at 07:01; Status DC Albuterol/ Ipratropium (Duoneb) 3 ml 1X ONCE NEB Last administered on at 06:37; Start 07/28/18 at 07:00; Stop 07/28/18 at 07:01; Status DC Sodium Chloride 1,000 ml @ 1,000 mls/hr 1X ONCE IV Last administered on at 07:03; Start 07/28/18 at 07:00; Stop 07/28/18 at 07:59; Status DC Albuterol Sulfate (Ventolin Neb Soln) 10 mg 1X ONCE CONT NEB Last administered on 07/28/18at 07:25; Start 07/28/18 at 07:00; Stop 07/28/18 at 07:02; Status DC Magnesium Sulfate 50 ml @ 25 mls/hr 1X ONCE IV Last administered on 07/28/18at 07:41; Start 07/28/18 at 07:15; Stop 07/28/18 at 09:14; Status DC Ceftriaxone Sodium 50 ml @ 100 mls/hr 1X ONCE IV Last administered on at 08:52; Start 07/28/18 at 08:15; Stop 07/28/18 at 08:44; Status DC Azithromycin 250 ml @ 250 mls/hr 1X ONCE IV Last administered on 07/28/18at 09: 20; Start 07/28/18 at 08:15; Stop 07/28/18 at 09:14; Status DC Acetaminophen/ Hydrocodone Bitart (Lortab 5/325) 2 tab 1X ONCE PO Last administered on 07/28/18at 08:49; Start 07/28/18 at 08:45; Stop 07/28/18 at 08:46; Status DC Ondansetron HCl (Zofran) 4 mg PRN Q8HRS PRN IV NAUSEA/VOMITING Last administered on 07/28/18at 22:40; Start 07/28/18 at 08:45; Stop 07/29/18 at 08:44; Status DC Acetaminophen (Tylenol) 650 mg PRN Q4HRS PRN PO FEVER Last administered on at 22:40; Start 07/28/18 at 08:45; Stop 07/29/18 at 08:44; Status DC Albuterol/ Ipratropium (Duoneb) 3 ml RTQID NEB Last administered on 07/29/18at 07 :29; Start 07/28/18 at 12:00; Stop 07/29/18 at 10:30; Status DC Acetaminophen/ Hydrocodone Bitart (Lortab 5/325) 2 tab Q6H PRN PO SEVERE PAIN Last administered on 07/29/18at 23:09; Start 07/28/18 at 08:45 Prednisone (Prednisone) 60 mg DAILY PO ; Start 07/29/18 at 09:00; Stop 07/29/18 at 09:00; Status DC Budesonide (Pulmicort) 0.5 mg RTBID NEB Last administered on 08/02/18at 08:40; Start 07/28/18 at 20:00 Budesonide (Pulmicort) 0.5 mg 1X ONCE NEB Last administered on 07/28/18at 11:06 ; Start 07/28/18 at 09:30; Stop 07/28/18 at 09:31; Status DC Albuterol Sulfate (Ventolin Neb Soln) 2.5 mg PRN Q4HRS PRN NEB SHORTNESS OF BREATH; Start 07/28/18 at 09:30 Azithromycin (Zithromax) 250 mg DAILY PO Last administered on 08/01/18at 08:54; Start 07/28/18 at 10:00; Stop 08/01/18 at 09:01; Status DC Alprazolam (Xanax) 0.25 mg PRN Q6HRS PRN PO ANXIETY / AGITATION Last administered on 07/29/18at 23:13; Start 07/28/18 at 12:45 Ibuprofen (Motrin) 800 mg PRN Q8HRS PRN PO PAIN MILD/INFLAMMATION; Start at 12:45 Benzonatate (Tessalon Perle) 100 mg PRN TID PRN PO COUGH 2ND CHOICE; Start 07/28 at 14:00 Citalopram Hydrobromide (CeleXA) 40 mg DAILY PO Last administered on 08/02/18at 07:33; Start 07/28/18 at 13:00 Metformin HCl (Glucophage) 500 mg BIDWMEALS PO Last administered on 07/29/18at 10 :07; Start 07/28/18 at 17:00; Stop 07/31/18 at 08:58; Status DC Promethazine HCl/ Codeine (Phenergan With Codeine) 5 ml PRN Q6HRS PRN PO COUGH 1ST CHOICE Last administered on 07/29/18at 16:25; Start 07/28/18 at 15:30 Guaifenesin (MUCINEX ER with DM) 1 tab BID PO Last administered on 07/30/18at 20: 57; Start 07/28/18 at 21:00; Stop 07/31/18 at 09:47; Status DC Lactobacillus Rhamnosus (Culturelle) 1 cap BID PO Last administered on at 21:44; Start 07/28/18 at 21:00; Stop 07/30/18 at 09:48; Status DC Prednisone (Prednisone) 30 mg DAILY PO Last administered on 07/29/18at 10:06; Start 07/29/18 at 09:00; Stop 07/31/18 at 08:58; Status DC Ceftriaxone Sodium 1 gm/ Dextrose 50 ml @ 100 mls/hr Q24H IV ; Start 07/29/18 at 09:00; Status UNV Ceftriaxone Sodium (Rocephin) 1 gm Q24H IVP Last administered on 07/29/18at 10:06 ; Start 07/29/18 at 09:00; Stop 07/30/18 at 10:07; Status DC Albuterol/ Ipratropium (Duoneb) 3 ml Q4HRS NEB Last administered on 08/02/18at 08 :40; Start 07/29/18 at 12:00; Stop 08/02/18 at 09:31; Status DC Budesonide (Pulmicort) 0.5 mg RTBID NEB ; Start 07/29/18 at 20:00; Status UNV Famotidine (Pepcid) 20 mg QHS PO Last administered on 07/29/18at 21:44; Start 07/29/18 at 21:00; Stop 07/30/18 at 10:10; Status DC Enoxaparin Sodium (Lovenox 40mg Syringe) 40 mg Q12H SQ Last administered on 08/02at 10:49; Start 07/29/18 at 12:30 Acetaminophen (Tylenol) 650 mg PRN Q6HRS PRN PO FEVER; Start 07/29/18 at 11:45 Ondansetron HCl (Zofran) 4 mg PRN Q6HRS PRN IV NAUSEA/VOMITING Last administered on 07/29/18at 15:23; Start 07/29/18 at 11:45 Morphine Sulfate (Morphine Sulfate) 2 mg PRN Q2HR PRN IV MODERATE TO SEVERE PAIN; Start 07/29/18 at 11:45 Tramadol HCl (Ultram) 50 mg PRN Q6HRS PRN PO MODERATE PAIN; Start 07/29/18 at 11 :45 Docusate Sodium (Colace) 100 mg PRN DAILY PRN PO CONSTIPATION; Start 07/29/18 at 11:45 Haloperidol Lactate (Haldol Inj) 2 mg PRN Q2HR PRN IVP AGITATION 2ND CHOICE Last administered on 08/01/18at 15:48; Start 07/30/18 at 01:30 Lorazepam (Ativan) 0.25 mg PRN Q1HR PRN IV ANXIETY/AGITATION 1ST CHOICE Last administered on 07/30/18at 03:30; Start 07/30/18 at 01:30 Propofol 100 ml @ As Directed STK-MED ONCE IV ; Start 07/30/18 at 04:12; Stop at 04:13; Status DC Etomidate (Amidate) 20 mg STK-MED ONCE IV ; Start 07/30/18 at 04:18; Stop at 04:19; Status DC Propofol 100 ml @ 0 mls/hr CONT PRN IV PER PROTOCOL Last administered on 12:44; Start 07/30/18 at 04:30 Chlorhexidine Gluconate (Peridex) 15 ml BID MM Last administered on 08/02/18 07 :33; Start 07/30/18 at 09:00 Midazolam HCl 100 ml @ 0 mls/hr CONT PRN IV PER PROTOCOL Last administered on at 19:14; Start 07/30/18 at 04:30 Piperacillin Sod/ Tazobactam Sod (Zosyn Per Pharmacy) 1 each PRN DAILY PRN MC SEE COMMENTS; Start 07/30/18 at 10:00 Vancomycin HCl (Vanco Per Pharmacy) 1 each PRN DAILY PRN MC SEE COMMENTS Last administered on 08/02/18at 08:26; Start 07/30/18 at 10:00 Methylprednisolone Sodium Succinate (SOLU-Medrol 125MG VIAL) 60 mg Q8HRS IV Last administered on 08/02/18 13:25; Start 07/30/18 at 14:00 Pantoprazole Sodium (PROTONIX VIAL for IV PUSH) 40 mg DAILYAC IVP Last administered on 08/02/18 07:33; Start 07/30/18 at 10:30 Piperacillin Sod/ Tazobactam Sod 3.375 gm/Sodium Chloride 50 ml @ 100 mls/hr Q6HRS IV Last administered on 08/02/18at 10:50; Start 07/30/18 at 12:00 Vancomycin HCl 2 gm/Sodium Chloride 500 ml @ 250 mls/hr 1X ONCE IV Last administered on 07/30/18at 10:31; Start 07/30/18 at 10:30; Stop 07/30/18 at 12:29; Status DC Vancomycin HCl 1.5 gm/Sodium Chloride 500 ml @ 250 mls/hr Q8H IV Last administered on 07/31/18at 14:10; Start 07/30/18 at 18:30; Stop 07/31/18 at 17:00; Status DC Vancomycin HCl (Vancomycin Trough Level) 1 each 1X ONCE MC Last administered on 07/31/18at 13:30; Start 07/31/18 at 13:30; Stop 07/31/18 at 13:31; Status DC Insulin Human Lispro (HumaLOG) 0-7 UNITS TIDWMEALS SQ ; Start 07/31/18 at 08:00; Stop 07/31/18 at 09:04; Status DC Dextrose (Dextrose 50%-Water Syringe) 12.5 gm PRN Q15MIN PRN IV SEE COMMENTS; Start 07/30/18 at 17:45 Insulin Human Lispro (HumaLOG) 0-7 UNITS Q6HRS SQ Last administered on at 06:01; Start 07/31/18 at 12:00 Vancomycin HCl 1.75 gm/Sodium Chloride 500 ml @ 250 mls/hr Q8H IV Last administered on 08/01/18at 13:48; Start 07/31/18 at 22:00; Stop 08/01/18 at 22:01; Status DC Vancomycin HCl (Vancomycin Trough Level) 1 each 1X ONCE MC Last administered on 08/01/18at 21:01; Start 08/01/18 at 21:30; Stop 08/01/18 at 21:31; Status DC Erythromycin Ethylsuccinate (E.e.s. 200) 200 mg 1X ONCE PEG Last administered on 08/01/18at 12:19; Start 08/01/18 at 13:00; Stop 08/01/18 at 13:01; Status DC Vancomycin HCl 2 gm/Sodium Chloride 500 ml @ 250 mls/hr Q8H IV Last administered on 08/02/18at 05:51; Start 08/01/18 at 22:00 Vancomycin HCl (Vancomycin Trough Level) 1 each 1X ONCE MC ; Start 08/02/18 at 21:30; Stop 08/02/18 at 21:31 Fentanyl Citrate 30 ml @ 0 mls/hr CONT PRN IV PER PROTOCOL Last administered on 08/02/18at 07:52; Start 08/02/18 at 07:00 Enalaprilat (Vasotec Inj) 1.25 mg PRN Q6HRS PRN IVP HYPERTENSION, SEE COMMENTS ; Start 08/02/18 at 09:15 Amlodipine Besylate (Norvasc) 2.5 mg DAILY PO Last administered on 08/02/18at 09: 43; Start 08/02/18 at 10:00 Albuterol/ Ipratropium (Duoneb) 3 ml RTQID NEB Last administered on 08/02/18at 11 :29; Start 08/02/18 at 12:00 Active Scripts Active Motrin Ib (Ibuprofen) 200 Mg Tablet 800 Mg PO Q8H PRN Tessalon Perle (Benzonatate) 100 Mg Capsule 100 Mg PO TID PRN Prednisone 20 Mg Tablet 40 Mg PO DAILY START MEDICATIONS ON 08/07/2016 Medrol (Methylprednisolone) 4 Mg Tab.ds.pk 1 Pkg PO UD Levaquin (Levofloxacin) 750 Mg Tablet 750 Mg PO DAILY06 Advair 250-50 Diskus (Fluticasone/Salmeterol) 1 Puff Puff 1 Puff INH BID Reported Topiramate 25 Mg Tablet 1 Tab PO HS Phentermine Hcl 37.5 Mg Capsule 1 Cap PO DAILYWBKFT Metformin Hcl 500 Mg Tablet 500 Mg PO BIDWMEALS Escitalopram Oxalate 20 Mg Tablet 1 Tab PO DAILY Xanax (Alprazolam) 0.25 Mg Tablet 0.25 Mg PO PRN Q6HRS PRN Vitals/I & O Vital Sign - Last 24 Hours 08/01/18 08/01/18 08/01/18 08/01/18 16:00 16:00 16:14 17:51 Temp 99.4 99.4 Pulse 78 Resp 20 B/P (MAP) 143/81 (101) Pulse Ox 99 98 98 O2 Delivery Ventilator Mechanical Ventilator Ventilator Ventilator 08/01/18 08/01/18 08/01/18 08/01/18 18:00 19:07 19:10 19:46 Pulse 76 75 Resp 20 20 B/P (MAP) 150/75 (100) 154/86 (108) Pulse Ox 97 97 98 O2 Delivery Ventilator Ventilator Ventilator Mechanical Ventilator 08/01/18 08/01/18 08/01/18 08/01/18 20:00 21:00 21:50 22:00 Temp 99.2 99.2 Pulse 77 81 83 Resp 20 20 20 B/P (MAP) 135/76 (95) 147/76 (99) 143/81 (101) Pulse Ox 96 96 98 96 O2 Delivery Ventilator Ventilator Ventilator Ventilator 08/01/18 08/01/18 08/02/18 08/02/18 23:00 23:54 00:00 00:14 Temp 99.7 99.7 Pulse 82 88 Resp 20 20 B/P (MAP) 142/69 (93) 146/73 (97) Pulse Ox 97 95 98 O2 Delivery Ventilator Mechanical Ventilator Ventilator Ventilator 08/02/18 08/02/18 08/02/18 08/02/18 01:04 02:00 02:01 03:00 Pulse 80 82 82 Resp 20 20 20 B/P (MAP) 154/74 (100) 149/75 (99) 148/75 (99) Pulse Ox 96 96 98 96 O2 Delivery Ventilator Ventilator Ventilator Ventilator 08/02/18 08/02/18 08/02/18 08/02/18 03:34 04:02 05:00 05:40 Temp 99.9 99.9 Pulse 78 Resp 20 B/P (MAP) 155/84 (107) Pulse Ox 97 98 O2 Delivery Mechanical Ventilator Ventilator Ventilator 08/02/18 08/02/18 08/02/18 08/02/18 06:08 07:00 07:24 07:52 Temp 99.2 99.2 Pulse 77 68 Resp 20 18 18 B/P (MAP) 160/75 (103) 168/82 (110) Pulse Ox 97 96 97 97 O2 Delivery Ventilator Ventilator Ventilator 08/02/18 08/02/18 08/02/18 08/02/18 08:00 08:00 08:56 09:00 Pulse 68 72 Resp 20 B/P (MAP) 174/89 (117) 179/85 (116) Pulse Ox 97 94 O2 Delivery Ventilator Mechanical Ventilator Ventilator Ventilator 08/02/18 08/02/18 08/02/18 08/02/18 09:02 09:43 09:45 10:00 Pulse 69 Resp 18 20 B/P (MAP) 179/85 139/66 (90) Pulse Ox 97 93 96 O2 Delivery Ventilator Ventilator Ventilator 08/02/18 08/02/18 08/02/18 08/02/18 11:00 11:20 12:00 12:00 Temp 99.3 99.3 Pulse 70 76 Resp 18 18 B/P (MAP) 152/72 (98) 144/78 (100) Pulse Ox 96 96 94 O2 Delivery Ventilator Ventilator Mechanical Ventilator Ventilator 08/02/18 08/02/18 13:00 13:00 Pulse 70 Resp 20 B/P (MAP) 140/63 (88) Pulse Ox 96 96 O2 Delivery Ventilator Ventilator Intake and Output 08/01/18 08/01/18 08/02/18 15:00 23:00 07:00 Intake Total 205 ml 1785 ml 2930.9 ml Output Total 370 ml 445 ml 795 ml Balance -165 ml 1340 ml 2135.9 ml RAMON RUST MD Aug 02, 2018 14:04
[2018-08-02 22:29] LABS: VANC TR 12.1 mcg/mL (10.0-20.0)
[2018-08-03] VITALS (24 sets, daily range): BP systolic 116–152; BP diastolic 65–80
[2018-08-03] MEDS: ENOXAPARIN 40 MG/0.4 ML SYRINGE. SQ SCH ×2 (01:46→13:17)
[2018-08-03] MEDS: PIPERACILLIN/TAZOBACTAM 3.375 GM in IV NORMAL SALINE 50ML 50 ML IV SCH ×4 (01:46→16:37)
[2018-08-03] MEDS: INSULIN LISPRO 300 UNITS/3 ML INSULN.PEN. SQ SCH ×4 (01:49→16:36)
[2018-08-03] MEDS: PROPOFOL 100 ML IV PRN ×8 (01:51→22:59)
[2018-08-03 04:12] LABS: BASO % 0 % (0-3); EOS % 0 % (0-3); HEMATOCRIT 32.4 % (36.0-47.0); HEMOGLOBIN 10.8 g/dL (12.0-15.5); LYMPH # 1.7 x10^3/uL (1.0-4.8); LYMPH % 13 % (24-48); MEAN CORPUSCULAR HEMOGLOBIN 27 pg (25-35); MEAN CORPUSCULAR HGB CONC 33 g/dL (31-37); MEAN CORPUSCULAR VOLUME 82 fL (79-100); MONO # 1.1 x10^3/uL (0.0-1.1); MONO % 9 % (0-9); NEUT # 9.9 x10^3uL (1.8-7.7); NEUT % 78 % (31-73); PLATELET COUNT 312 x10^3/uL (140-400); RED BLOOD COUNT 3.95 x10^6/uL (3.50-5.40); RED CELL DISTRIBUTION WIDTH 14.1 % (11.5-14.5); WHITE BLOOD COUNT 12.7 x10^3/uL (4.0-11.0)
[2018-08-03 04:36] LABS: ALBUMIN 2.3 g/dL (3.4-5.0); ALBUMIN/GLOBULIN RATIO 0.5 (1.0-1.7); CALCIUM 8.5 mg/dL (8.5-10.1); CREATININE 0.6 mg/dL (0.6-1.0); GFR 117.4; POTASSIUM 4.1 mmol/L (3.5-5.1); TOTAL BILIRUBIN 0.7 mg/dL (0.2-1.0); TOTAL PROTEIN 6.5 g/dL (6.4-8.2)
[2018-08-03] MEDS ORDERED: VANCOMYCIN 1.75 GM in IV NORMAL SALINE 500ML BAG 500 ML IV SCH (05:00)
[2018-08-03] MEDS: methylPREDNISolone SOD SUCC PF 125 MG/2 ML VIAL. IV SCH ×3 (05:49→21:51)
--- NOTE | 2018-08-03 06:13 | PDOC ---
PULMONARY PROGRESS NOTES Subjective patient intubated 07/30 after progressive hypoxia and failed BIPAP, sedated, on fentanyl propofol, small ett secretion on 60% FIO2/ 9 PEEP Vitals Vital Signs Date Time Temp Pulse Resp B/P (MAP) Pulse Ox O2 Delivery O2 Flow Rate FiO2 08/03/18 05:10 96 Ventilator 08/03/18 05:00 52 18 123/66 (85) 08/03/18 04:00 99.1 99.1 08/02/18 22:14 15.0 Comments ros as mentioned as above, discussed w rn, other sys otherwise neg sedated on vent HEENT: Other (nc at perrl. nose throat clear.... neck, no lad, no thyromegaly) Lungs: Crackles Cardiovascular: S1, S2 Abdomen: Soft, Non-tender, Other (no mass) Extremities: Other (trace edema) Skin: Warm Labs Laboratory Tests Test 08/01/18 07:50 08/01/18 12:04 08/01/18 17:59 08/01/18 20:45 O2 Saturation 97 % (92-99) Arterial Blood pH 7.43 (7.35-7.45) Arterial Blood pCO2 at Patient Temp 44 mmHg (35-46) Arterial Blood pO2 at Patient Temp 91 mmHg (85-108) Arterial Blood HCO3 29 mmol/L (21-28) Arterial Blood Base Excess 4 mmol/L (-3-3) FiO2 70 Glucose (Fingerstick) 131 mg/dL (70-99) 152 mg/dL (70-99) Vancomycin Level Trough 10.3 mcg/mL (10.0-20.0) Vancomycin Last Dose Date 08/01/18 Vancomycin Last Dose Time 0600 Test 08/01/18 23:23 08/02/18 05:00 08/02/18 05:59 08/02/18 08:40 Glucose (Fingerstick) 142 mg/dL (70-99) 163 mg/dL (70-99) White Blood Count 11.8 x10^3/uL (4.0-11.0) Red Blood Count 3.82 x10^6/uL (3.50-5.40) Hemoglobin 10.3 g/dL (12.0-15.5) Hematocrit 31.1 % (36.0-47.0) Mean Corpuscular Volume 82 fL (79-100) Mean Corpuscular Hemoglobin 27 pg (25-35) Mean Corpuscular Hemoglobin Concent 33 g/dL (31-37) Red Cell Distribution Width 14.2 % (11.5-14.5) Platelet Count 278 x10^3/uL (140-400) Neutrophils (%) (Auto) 79 % (31-73) Lymphocytes (%) (Auto) 13 % (24-48) Monocytes (%) (Auto) 8 % (0-9) Eosinophils (%) (Auto) 0 % (0-3) Basophils (%) (Auto) 0 % (0-3) Neutrophils # (Auto) 9.3 x10^3uL (1.8-7.7) Lymphocytes # (Auto) 1.5 x10^3/uL (1.0-4.8) Monocytes # (Auto) 0.9 x10^3/uL (0.0-1.1) Eosinophils # (Auto) 0.0 x10^3/uL (0.0-0.7) Basophils # (Auto) 0.0 x10^3/uL (0.0-0.2) Sodium Level 143 mmol/L (136-145) Potassium Level 4.1 mmol/L (3.5-5.1) Chloride Level 105 mmol/L (98-107) Carbon Dioxide Level 31 mmol/L (21-32) Anion Gap 7 (6-14) Blood Urea Nitrogen 21 mg/dL (7-20) Creatinine 0.6 mg/dL (0.6-1.0) Estimated GFR (Cockcroft-Gault) 117.4 BUN/Creatinine Ratio 35 (6-20) Glucose Level 164 mg/dL (70-99) Calcium Level 9.0 mg/dL (8.5-10.1) Total Bilirubin 0.5 mg/dL (0.2-1.0) Aspartate Amino Transf (AST/SGOT) 199 U/L (15-37) Alanine Aminotransferase (ALT/SGPT) 370 U/L (14-59) Alkaline Phosphatase 103 U/L (46-116) Total Protein 6.6 g/dL (6.4-8.2) Albumin 2.4 g/dL (3.4-5.0) Albumin/Globulin Ratio 0.6 (1.0-1.7) O2 Saturation 96 % (92-99) Arterial Blood pH 7.45 (7.35-7.45) Arterial Blood pCO2 at Patient Temp 43 mmHg (35-46) Arterial Blood pO2 at Patient Temp 84 mmHg (85-108) Arterial Blood HCO3 29 mmol/L (21-28) Arterial Blood Base Excess 4 mmol/L (-3-3) FiO2 60 Test 08/02/18 10:57 08/02/18 17:15 08/02/18 22:10 08/03/18 01:47 Glucose (Fingerstick) 139 mg/dL (70-99) 148 mg/dL (70-99) 161 mg/dL (70-99) Vancomycin Level Trough 12.1 mcg/mL (10.0-20.0) Vancomycin Last Dose Date 08/03/18 Vancomycin Last Dose Time 1400 Test 08/03/18 04:05 White Blood Count 12.7 x10^3/uL (4.0-11.0) Red Blood Count 3.95 x10^6/uL (3.50-5.40) Hemoglobin 10.8 g/dL (12.0-15.5) Hematocrit 32.4 % (36.0-47.0) Mean Corpuscular Volume 82 fL (79-100) Mean Corpuscular Hemoglobin 27 pg (25-35) Mean Corpuscular Hemoglobin Concent 33 g/dL (31-37) Red Cell Distribution Width 14.1 % (11.5-14.5) Platelet Count 312 x10^3/uL (140-400) Neutrophils (%) (Auto) 78 % (31-73) Lymphocytes (%) (Auto) 13 % (24-48) Monocytes (%) (Auto) 9 % (0-9) Eosinophils (%) (Auto) 0 % (0-3) Basophils (%) (Auto) 0 % (0-3) Neutrophils # (Auto) 9.9 x10^3uL (1.8-7.7) Lymphocytes # (Auto) 1.7 x10^3/uL (1.0-4.8) Monocytes # (Auto) 1.1 x10^3/uL (0.0-1.1) Eosinophils # (Auto) 0.0 x10^3/uL (0.0-0.7) Basophils # (Auto) 0.0 x10^3/uL (0.0-0.2) Sodium Level 143 mmol/L (136-145) Potassium Level 4.1 mmol/L (3.5-5.1) Chloride Level 107 mmol/L (98-107) Carbon Dioxide Level 33 mmol/L (21-32) Anion Gap 3 (6-14) Blood Urea Nitrogen 23 mg/dL (7-20) Creatinine 0.6 mg/dL (0.6-1.0) Estimated GFR (Cockcroft-Gault) 117.4 BUN/Creatinine Ratio 38 (6-20) Glucose Level 178 mg/dL (70-99) Calcium Level 8.5 mg/dL (8.5-10.1) Total Bilirubin 0.7 mg/dL (0.2-1.0) Aspartate Amino Transf (AST/SGOT) 172 U/L (15-37) Alanine Aminotransferase (ALT/SGPT) 477 U/L (14-59) Alkaline Phosphatase 92 U/L (46-116) Total Protein 6.5 g/dL (6.4-8.2) Albumin 2.3 g/dL (3.4-5.0) Albumin/Globulin Ratio 0.5 (1.0-1.7) Laboratory Tests Test 08/02/18 08:40 08/02/18 10:57 08/02/18 17:15 08/02/18 22:10 O2 Saturation 96 % (92-99) Arterial Blood pH 7.45 (7.35-7.45) Arterial Blood pCO2 at Patient Temp 43 mmHg (35-46) Arterial Blood pO2 at Patient Temp 84 mmHg (85-108) Arterial Blood HCO3 29 mmol/L (21-28) Arterial Blood Base Excess 4 mmol/L (-3-3) FiO2 60 Glucose (Fingerstick) 139 mg/dL (70-99) 148 mg/dL (70-99) Vancomycin Level Trough 12.1 mcg/mL (10.0-20.0) Vancomycin Last Dose Date 08/03/18 Vancomycin Last Dose Time 1400 Test 08/03/18 01:47 08/03/18 04:05 Glucose (Fingerstick) 161 mg/dL (70-99) White Blood Count 12.7 x10^3/uL (4.0-11.0) Red Blood Count 3.95 x10^6/uL (3.50-5.40) Hemoglobin 10.8 g/dL (12.0-15.5) Hematocrit 32.4 % (36.0-47.0) Mean Corpuscular Volume 82 fL (79-100) Mean Corpuscular Hemoglobin 27 pg (25-35) Mean Corpuscular Hemoglobin Concent 33 g/dL (31-37) Red Cell Distribution Width 14.1 % (11.5-14.5) Platelet Count 312 x10^3/uL (140-400) Neutrophils (%) (Auto) 78 % (31-73) Lymphocytes (%) (Auto) 13 % (24-48) Monocytes (%) (Auto) 9 % (0-9) Eosinophils (%) (Auto) 0 % (0-3) Basophils (%) (Auto) 0 % (0-3) Neutrophils # (Auto) 9.9 x10^3uL (1.8-7.7) Lymphocytes # (Auto) 1.7 x10^3/uL (1.0-4.8) Monocytes # (Auto) 1.1 x10^3/uL (0.0-1.1) Eosinophils # (Auto) 0.0 x10^3/uL (0.0-0.7) Basophils # (Auto) 0.0 x10^3/uL (0.0-0.2) Sodium Level 143 mmol/L (136-145) Potassium Level 4.1 mmol/L (3.5-5.1) Chloride Level 107 mmol/L (98-107) Carbon Dioxide Level 33 mmol/L (21-32) Anion Gap 3 (6-14) Blood Urea Nitrogen 23 mg/dL (7-20) Creatinine 0.6 mg/dL (0.6-1.0) Estimated GFR (Cockcroft-Gault) 117.4 BUN/Creatinine Ratio 38 (6-20) Glucose Level 178 mg/dL (70-99) Calcium Level 8.5 mg/dL (8.5-10.1) Total Bilirubin 0.7 mg/dL (0.2-1.0) Aspartate Amino Transf (AST/SGOT) 172 U/L (15-37) Alanine Aminotransferase (ALT/SGPT) 477 U/L (14-59) Alkaline Phosphatase 92 U/L (46-116) Total Protein 6.5 g/dL (6.4-8.2) Albumin 2.3 g/dL (3.4-5.0) Albumin/Globulin Ratio 0.5 (1.0-1.7) Medications Active Scripts Medications Dose Route/Sig Max Daily Dose Days Date Category Dose Instructions Topiramate 25 Mg Tablet 1 Tab PO HS 07/28/18 Reported Phentermine Hcl 37.5 Mg Capsule 1 Cap PO [id number] 07/28/18 Reported Metformin Hcl 500 Mg Tablet 500 Mg PO BIDWMEALS 07/28/18 Reported Motrin Ib (Ibuprofen) 200 Mg Tablet 800 Mg PO Q8H PRN 08/15/17 Rx Tessalon Perle (Benzonatate) 100 Mg Capsule 100 Mg PO TID PRN 01/11/17 Rx Prednisone 20 Mg Tablet 40 Mg PO DAILY 08/06/16 Rx START MEDICATIONS ON 08/07/2016 Medrol (Methylprednisolone) 4 Mg Tab.ds.pk 1 Pkg PO UD 11/16/14 Rx Levaquin (Levofloxacin) 750 Mg Tablet 750 Mg PO DAILY06 11/16/14 Rx Advair 250-50 Diskus (Fluticasone/Salmeterol) 1 Puff Puff 1 Puff INH BID 11/16/14 Rx Escitalopram Oxalate 20 Mg Tablet 1 Tab PO DAILY 11/09/14 Reported Xanax (Alprazolam) 0.25 Mg Tablet 0.25 Mg PO PRN Q6HRS PRN 11/09/14 Reported Comments reviewed cxr b ll infilt, no change, ett ok Impression . 1. acute ypoxic respiratory failure requiring mechanical ventilation 07/30. suspect ARDS/ diffuse pneumonia 2. Acute exacerbation of chronic obstructive pulmonary disease with an asthma component. 3. abnl cxr, Diffuse lung infiltrates, suspect diffuse lung pneumonia/ ARDS 4. Morbid obesity, body mass index of 40, prob ji. 5. H/O Anxiety/panic attacks. 6. Status post cholecystectomy. Plan . 1. AC mode, PEEP 9/ fio2 60%, will titrate fio2, when down to 50%, start decreasing peep as tolerated, avoid oversedation 2. bronchodilators, cont pulmicort, cont solumedrol to 40 q 8hrs 3. sed rate (43). continue steroids, 4. may need Bronch, monitor for now 5. BS Abx 6. echo reviewed. normal EF/ PA pressures 7. mild diuresis prn 8. enteral nutrition 9. lovenox and protonix for prophylaxis 10. sputum cx d/w RN/RT/ MARK WU MD Aug 03, 2018 06:13
[2018-08-03] MEDS: BUDESONIDE 0.5 MG/2 ML NEBU. NEB SCH ×2 (07:49→19:40)
[2018-08-03] MEDS: IPRATRPIUM/ALBUTEROL 0.5/2.5MG 3 ML NEBU. NEB SCH ×4 (07:49→19:40)
[2018-08-03] MEDS: CITALOPRAM 20 MG TABLET. PO SCH (08:20)
[2018-08-03] MEDS: CHLORHEXIDINE 0.12% 15 ML MOUTHWASH. MM SCH ×2 (08:20→21:50)
[2018-08-03] MEDS: PANTOPRAZOLE IV PUSH 40 MG VIAL. IVP SCH (08:20)
[2018-08-03] MEDS: amLODIPine BESYLATE 2.5 MG TABLET PO SCH (08:21)
[2018-08-03 08:26] LABS: BASE EXCESS ABG 5 mmol/L (-3-3); HCO3 ABG 31 mmol/L (21-28); PCO2 ABG 52 mmHg (35-46); PO2 ABG 72 mmHg (85-108); SAT O2 ABG 93 % (92-99)
[2018-08-03 08:27] LABS: FIO2 ABG 60
[2018-08-03] MEDS: VANCOMYCIN PER PHARMACY MC PRN (08:31)
--- NOTE | 2018-08-03 08:34 | RAD ---
EXAM: PORTABLE CHEST 1V DATE: 08/03/2018 7:35 AM INDICATION: ARDS COMPARISON: 08/02/2018, 08/01/2018 FINDINGS: ET tube tip terminates 3 cm above the tom. Enteric tube is not well visualized, possibly obscured by radiographic attenuation. Right IJ vascular catheter tip projects over the superior cavoatrial junction. Cardiomediastinal silhouette is stable. Bilateral lung base opacities are essentially stable when accounting for differences in technique/projection. Trace left pleural effusion. No significant right pleural effusion. No pneumothorax. IMPRESSION: Stable examination with stable appearance of the ET tube and right IJ vascular catheter. Enteric tube is not well visualized, likely limitations by radiographic technique.. Electronically signed by: Jez Lim MD (08/03/2018 8:30 AM) [facility]
--- NOTE | 2018-08-03 12:35 | PDOC ---
Infectious Disease Note Vital Sign Vital Signs Vital Signs Date Time Temp Pulse Resp B/P (MAP) Pulse Ox O2 Delivery O2 Flow Rate FiO2 08/03/18 12:00 62 18 136/76 (96) 96 Ventilator 08/03/18 11:00 99.3 99.3 08/03/18 10:42 15.0 Labs Lab Laboratory Tests Test 08/02/18 17:15 08/02/18 22:10 08/03/18 01:47 08/03/18 04:05 Glucose (Fingerstick) 148 mg/dL (70-99) 161 mg/dL (70-99) Vancomycin Level Trough 12.1 mcg/mL (10.0-20.0) Vancomycin Last Dose Date 08/03/18 Vancomycin Last Dose Time 1400 White Blood Count 12.7 x10^3/uL (4.0-11.0) Red Blood Count 3.95 x10^6/uL (3.50-5.40) Hemoglobin 10.8 g/dL (12.0-15.5) Hematocrit 32.4 % (36.0-47.0) Mean Corpuscular Volume 82 fL (79-100) Mean Corpuscular Hemoglobin 27 pg (25-35) Mean Corpuscular Hemoglobin Concent 33 g/dL (31-37) Red Cell Distribution Width 14.1 % (11.5-14.5) Platelet Count 312 x10^3/uL (140-400) Neutrophils (%) (Auto) 78 % (31-73) Lymphocytes (%) (Auto) 13 % (24-48) Monocytes (%) (Auto) 9 % (0-9) Eosinophils (%) (Auto) 0 % (0-3) Basophils (%) (Auto) 0 % (0-3) Neutrophils # (Auto) 9.9 x10^3uL (1.8-7.7) Lymphocytes # (Auto) 1.7 x10^3/uL (1.0-4.8) Monocytes # (Auto) 1.1 x10^3/uL (0.0-1.1) Eosinophils # (Auto) 0.0 x10^3/uL (0.0-0.7) Basophils # (Auto) 0.0 x10^3/uL (0.0-0.2) Sodium Level 143 mmol/L (136-145) Potassium Level 4.1 mmol/L (3.5-5.1) Chloride Level 107 mmol/L (98-107) Carbon Dioxide Level 33 mmol/L (21-32) Anion Gap 3 (6-14) Blood Urea Nitrogen 23 mg/dL (7-20) Creatinine 0.6 mg/dL (0.6-1.0) Estimated GFR (Cockcroft-Gault) 117.4 BUN/Creatinine Ratio 38 (6-20) Glucose Level 178 mg/dL (70-99) Calcium Level 8.5 mg/dL (8.5-10.1) Total Bilirubin 0.7 mg/dL (0.2-1.0) Aspartate Amino Transf (AST/SGOT) 172 U/L (15-37) Alanine Aminotransferase (ALT/SGPT) 477 U/L (14-59) Alkaline Phosphatase 92 U/L (46-116) Total Protein 6.5 g/dL (6.4-8.2) Albumin 2.3 g/dL (3.4-5.0) Albumin/Globulin Ratio 0.5 (1.0-1.7) Test 08/03/18 08:00 08/03/18 11:36 O2 Saturation 93 % (92-99) Arterial Blood pH 7.39 (7.35-7.45) Arterial Blood pCO2 at Patient Temp 52 mmHg (35-46) Arterial Blood pO2 at Patient Temp 72 mmHg (85-108) Arterial Blood HCO3 31 mmol/L (21-28) Arterial Blood Base Excess 5 mmol/L (-3-3) FiO2 60 Glucose (Fingerstick) 156 mg/dL (70-99) Micro Microbiology 07/28/18 Blood Culture - Final, Complete NO GROWTH AFTER 5 DAYS Objective Assessment Leukocytosis - On steroids Acute resp failure - Intubated CAP Transaminitis Morbid obesity Plan Plan of Care D/c Vanc Cont Zosyn Add Azithromycin Check influenza Check strep antigen/Legionella/Mycoplasma UA C and S Recommend Resp viral panel - will try to order as Miscellaneous F/u labs and cults Thank you 35 mins CC time # [id number] ADIA HOGAN MD Aug 03, 2018 12:35
[2018-08-03] MEDS: AZITHROMYCIN 500 MG in IV NORMAL SALINE 250ML 250 ML IV SCH (13:17)
[2018-08-03] MEDS ORDERED: VANCOMYCIN 2 GM in IV NORMAL SALINE 500ML BAG 500 ML IV SCH (14:00)
--- NOTE | 2018-08-03 14:48 | PDOC ---
PROGRESS NOTES Chief Complaint Chief Complaint acute hypoxic respiratory failure, req. intubation sepsis, pneumonia EZ lobe acute asthma exacerbation morbid obesity, BMI 41 w/ mod/sever malnutrition was POA possible ileus transaminitis, NOS History of Present Illness History of Present Illness still on vent Sa02 improved, labs OK on broader abx since ICU transfer cont breathing tx, wean vent as able supportive care Vitals Vitals Vital Signs Date Time Temp Pulse Resp B/P (MAP) Pulse Ox O2 Delivery O2 Flow Rate FiO2 08/03/18 14:00 62 20 137/80 (99) 96 Ventilator 08/03/18 11:00 99.3 99.3 08/03/18 10:42 15.0 Physical Exam General: mild distress, Other (sedated) Heart: Regular rate, Normal S1, Normal S2 Lungs: Crackles Abdomen: Normal bowel sounds, Soft Extremities: No cyanosis, No edema, Normal pulses Skin: No rashes Labs LABS Laboratory Tests Test 08/02/18 17:15 08/02/18 22:10 08/03/18 01:47 08/03/18 04:05 Glucose (Fingerstick) 148 mg/dL (70-99) 161 mg/dL (70-99) Vancomycin Level Trough 12.1 mcg/mL (10.0-20.0) Vancomycin Last Dose Date 08/03/18 Vancomycin Last Dose Time 1400 White Blood Count 12.7 x10^3/uL (4.0-11.0) Red Blood Count 3.95 x10^6/uL (3.50-5.40) Hemoglobin 10.8 g/dL (12.0-15.5) Hematocrit 32.4 % (36.0-47.0) Mean Corpuscular Volume 82 fL (79-100) Mean Corpuscular Hemoglobin 27 pg (25-35) Mean Corpuscular Hemoglobin Concent 33 g/dL (31-37) Red Cell Distribution Width 14.1 % (11.5-14.5) Platelet Count 312 x10^3/uL (140-400) Neutrophils (%) (Auto) 78 % (31-73) Lymphocytes (%) (Auto) 13 % (24-48) Monocytes (%) (Auto) 9 % (0-9) Eosinophils (%) (Auto) 0 % (0-3) Basophils (%) (Auto) 0 % (0-3) Neutrophils # (Auto) 9.9 x10^3uL (1.8-7.7) Lymphocytes # (Auto) 1.7 x10^3/uL (1.0-4.8) Monocytes # (Auto) 1.1 x10^3/uL (0.0-1.1) Eosinophils # (Auto) 0.0 x10^3/uL (0.0-0.7) Basophils # (Auto) 0.0 x10^3/uL (0.0-0.2) Sodium Level 143 mmol/L (136-145) Potassium Level 4.1 mmol/L (3.5-5.1) Chloride Level 107 mmol/L (98-107) Carbon Dioxide Level 33 mmol/L (21-32) Anion Gap 3 (6-14) Blood Urea Nitrogen 23 mg/dL (7-20) Creatinine 0.6 mg/dL (0.6-1.0) Estimated GFR (Cockcroft-Gault) 117.4 BUN/Creatinine Ratio 38 (6-20) Glucose Level 178 mg/dL (70-99) Calcium Level 8.5 mg/dL (8.5-10.1) Total Bilirubin 0.7 mg/dL (0.2-1.0) Aspartate Amino Transf (AST/SGOT) 172 U/L (15-37) Alanine Aminotransferase (ALT/SGPT) 477 U/L (14-59) Alkaline Phosphatase 92 U/L (46-116) Total Protein 6.5 g/dL (6.4-8.2) Albumin 2.3 g/dL (3.4-5.0) Albumin/Globulin Ratio 0.5 (1.0-1.7) Test 08/03/18 08:00 08/03/18 11:36 O2 Saturation 93 % (92-99) Arterial Blood pH 7.39 (7.35-7.45) Arterial Blood pCO2 at Patient Temp 52 mmHg (35-46) Arterial Blood pO2 at Patient Temp 72 mmHg (85-108) Arterial Blood HCO3 31 mmol/L (21-28) Arterial Blood Base Excess 5 mmol/L (-3-3) FiO2 60 Glucose (Fingerstick) 156 mg/dL (70-99) Assessment and Plan Assessmemt and Plan Problems Medical Problems: (1) Pneumonia Status: Acute Comment Review of Relevant I have reviewed the following items [place] (where applicable) has been applied. Labs Laboratory Tests Test 08/01/18 17:59 08/01/18 20:45 08/01/18 23:23 08/02/18 05:00 Glucose (Fingerstick) 152 mg/dL (70-99) 142 mg/dL (70-99) Vancomycin Level Trough 10.3 mcg/mL (10.0-20.0) Vancomycin Last Dose Date 08/01/18 Vancomycin Last Dose Time 0600 White Blood Count 11.8 x10^3/uL (4.0-11.0) Red Blood Count 3.82 x10^6/uL (3.50-5.40) Hemoglobin 10.3 g/dL (12.0-15.5) Hematocrit 31.1 % (36.0-47.0) Mean Corpuscular Volume 82 fL (79-100) Mean Corpuscular Hemoglobin 27 pg (25-35) Mean Corpuscular Hemoglobin Concent 33 g/dL (31-37) Red Cell Distribution Width 14.2 % (11.5-14.5) Platelet Count 278 x10^3/uL (140-400) Neutrophils (%) (Auto) 79 % (31-73) Lymphocytes (%) (Auto) 13 % (24-48) Monocytes (%) (Auto) 8 % (0-9) Eosinophils (%) (Auto) 0 % (0-3) Basophils (%) (Auto) 0 % (0-3) Neutrophils # (Auto) 9.3 x10^3uL (1.8-7.7) Lymphocytes # (Auto) 1.5 x10^3/uL (1.0-4.8) Monocytes # (Auto) 0.9 x10^3/uL (0.0-1.1) Eosinophils # (Auto) 0.0 x10^3/uL (0.0-0.7) Basophils # (Auto) 0.0 x10^3/uL (0.0-0.2) Sodium Level 143 mmol/L (136-145) Potassium Level 4.1 mmol/L (3.5-5.1) Chloride Level 105 mmol/L (98-107) Carbon Dioxide Level 31 mmol/L (21-32) Anion Gap 7 (6-14) Blood Urea Nitrogen 21 mg/dL (7-20) Creatinine 0.6 mg/dL (0.6-1.0) Estimated GFR (Cockcroft-Gault) 117.4 BUN/Creatinine Ratio 35 (6-20) Glucose Level 164 mg/dL (70-99) Calcium Level 9.0 mg/dL (8.5-10.1) Total Bilirubin 0.5 mg/dL (0.2-1.0) Aspartate Amino Transf (AST/SGOT) 199 U/L (15-37) Alanine Aminotransferase (ALT/SGPT) 370 U/L (14-59) Alkaline Phosphatase 103 U/L (46-116) Total Protein 6.6 g/dL (6.4-8.2) Albumin 2.4 g/dL (3.4-5.0) Albumin/Globulin Ratio 0.6 (1.0-1.7) Test 08/02/18 05:59 08/02/18 08:40 08/02/18 10:57 08/02/18 17:15 Glucose (Fingerstick) 163 mg/dL (70-99) 139 mg/dL (70-99) 148 mg/dL (70-99) O2 Saturation 96 % (92-99) Arterial Blood pH 7.45 (7.35-7.45) Arterial Blood pCO2 at Patient Temp 43 mmHg (35-46) Arterial Blood pO2 at Patient Temp 84 mmHg (85-108) Arterial Blood HCO3 29 mmol/L (21-28) Arterial Blood Base Excess 4 mmol/L (-3-3) FiO2 60 Test 08/02/18 22:10 08/03/18 01:47 08/03/18 04:05 08/03/18 08:00 Vancomycin Level Trough 12.1 mcg/mL (10.0-20.0) Vancomycin Last Dose Date 08/03/18 Vancomycin Last Dose Time 1400 Glucose (Fingerstick) 161 mg/dL (70-99) White Blood Count 12.7 x10^3/uL (4.0-11.0) Red Blood Count 3.95 x10^6/uL (3.50-5.40) Hemoglobin 10.8 g/dL (12.0-15.5) Hematocrit 32.4 % (36.0-47.0) Mean Corpuscular Volume 82 fL (79-100) Mean Corpuscular Hemoglobin 27 pg (25-35) Mean Corpuscular Hemoglobin Concent 33 g/dL (31-37) Red Cell Distribution Width 14.1 % (11.5-14.5) Platelet Count 312 x10^3/uL (140-400) Neutrophils (%) (Auto) 78 % (31-73) Lymphocytes (%) (Auto) 13 % (24-48) Monocytes (%) (Auto) 9 % (0-9) Eosinophils (%) (Auto) 0 % (0-3) Basophils (%) (Auto) 0 % (0-3) Neutrophils # (Auto) 9.9 x10^3uL (1.8-7.7) Lymphocytes # (Auto) 1.7 x10^3/uL (1.0-4.8) Monocytes # (Auto) 1.1 x10^3/uL (0.0-1.1) Eosinophils # (Auto) 0.0 x10^3/uL (0.0-0.7) Basophils # (Auto) 0.0 x10^3/uL (0.0-0.2) Sodium Level 143 mmol/L (136-145) Potassium Level 4.1 mmol/L (3.5-5.1) Chloride Level 107 mmol/L (98-107) Carbon Dioxide Level 33 mmol/L (21-32) Anion Gap 3 (6-14) Blood Urea Nitrogen 23 mg/dL (7-20) Creatinine 0.6 mg/dL (0.6-1.0) Estimated GFR (Cockcroft-Gault) 117.4 BUN/Creatinine Ratio 38 (6-20) Glucose Level 178 mg/dL (70-99) Calcium Level 8.5 mg/dL (8.5-10.1) Total Bilirubin 0.7 mg/dL (0.2-1.0) Aspartate Amino Transf (AST/SGOT) 172 U/L (15-37) Alanine Aminotransferase (ALT/SGPT) 477 U/L (14-59) Alkaline Phosphatase 92 U/L (46-116) Total Protein 6.5 g/dL (6.4-8.2) Albumin 2.3 g/dL (3.4-5.0) Albumin/Globulin Ratio 0.5 (1.0-1.7) O2 Saturation 93 % (92-99) Arterial Blood pH 7.39 (7.35-7.45) Arterial Blood pCO2 at Patient Temp 52 mmHg (35-46) Arterial Blood pO2 at Patient Temp 72 mmHg (85-108) Arterial Blood HCO3 31 mmol/L (21-28) Arterial Blood Base Excess 5 mmol/L (-3-3) FiO2 60 Test 08/03/18 11:36 Glucose (Fingerstick) 156 mg/dL (70-99) Laboratory Tests Test 08/02/18 17:15 08/02/18 22:10 08/03/18 01:47 08/03/18 04:05 Glucose (Fingerstick) 148 mg/dL (70-99) 161 mg/dL (70-99) Vancomycin Level Trough 12.1 mcg/mL (10.0-20.0) Vancomycin Last Dose Date 08/03/18 Vancomycin Last Dose Time 1400 White Blood Count 12.7 x10^3/uL (4.0-11.0) Red Blood Count 3.95 x10^6/uL (3.50-5.40) Hemoglobin 10.8 g/dL (12.0-15.5) Hematocrit 32.4 % (36.0-47.0) Mean Corpuscular Volume 82 fL (79-100) Mean Corpuscular Hemoglobin 27 pg (25-35) Mean Corpuscular Hemoglobin Concent 33 g/dL (31-37) Red Cell Distribution Width 14.1 % (11.5-14.5) Platelet Count 312 x10^3/uL (140-400) Neutrophils (%) (Auto) 78 % (31-73) Lymphocytes (%) (Auto) 13 % (24-48) Monocytes (%) (Auto) 9 % (0-9) Eosinophils (%) (Auto) 0 % (0-3) Basophils (%) (Auto) 0 % (0-3) Neutrophils # (Auto) 9.9 x10^3uL (1.8-7.7) Lymphocytes # (Auto) 1.7 x10^3/uL (1.0-4.8) Monocytes # (Auto) 1.1 x10^3/uL (0.0-1.1) Eosinophils # (Auto) 0.0 x10^3/uL (0.0-0.7) Basophils # (Auto) 0.0 x10^3/uL (0.0-0.2) Sodium Level 143 mmol/L (136-145) Potassium Level 4.1 mmol/L (3.5-5.1) Chloride Level 107 mmol/L (98-107) Carbon Dioxide Level 33 mmol/L (21-32) Anion Gap 3 (6-14) Blood Urea Nitrogen 23 mg/dL (7-20) Creatinine 0.6 mg/dL (0.6-1.0) Estimated GFR (Cockcroft-Gault) 117.4 BUN/Creatinine Ratio 38 (6-20) Glucose Level 178 mg/dL (70-99) Calcium Level 8.5 mg/dL (8.5-10.1) Total Bilirubin 0.7 mg/dL (0.2-1.0) Aspartate Amino Transf (AST/SGOT) 172 U/L (15-37) Alanine Aminotransferase (ALT/SGPT) 477 U/L (14-59) Alkaline Phosphatase 92 U/L (46-116) Total Protein 6.5 g/dL (6.4-8.2) Albumin 2.3 g/dL (3.4-5.0) Albumin/Globulin Ratio 0.5 (1.0-1.7) Test 08/03/18 08:00 08/03/18 11:36 O2 Saturation 93 % (92-99) Arterial Blood pH 7.39 (7.35-7.45) Arterial Blood pCO2 at Patient Temp 52 mmHg (35-46) Arterial Blood pO2 at Patient Temp 72 mmHg (85-108) Arterial Blood HCO3 31 mmol/L (21-28) Arterial Blood Base Excess 5 mmol/L (-3-3) FiO2 60 Glucose (Fingerstick) 156 mg/dL (70-99) Microbiology 07/28/18 Blood Culture - Final, Complete NO GROWTH AFTER 5 DAYS Medications Current Medications Prednisone (Prednisone) 50 mg 1X ONCE PO Last administered on 07/28/18at 06:47; Start 07/28/18 at 07:00; Stop 07/28/18 at 07:01; Status DC Albuterol/ Ipratropium (Duoneb) 3 ml 1X ONCE NEB Last administered on at 06:37; Start 07/28/18 at 07:00; Stop 07/28/18 at 07:01; Status DC Sodium Chloride 1,000 ml @ 1,000 mls/hr 1X ONCE IV Last administered on at 07:03; Start 07/28/18 at 07:00; Stop 07/28/18 at 07:59; Status DC Albuterol Sulfate (Ventolin Neb Soln) 10 mg 1X ONCE CONT NEB Last administered on 07/28/18at 07:25; Start 07/28/18 at 07:00; Stop 07/28/18 at 07:02; Status DC Magnesium Sulfate 50 ml @ 25 mls/hr 1X ONCE IV Last administered on 07/28/18at 07:41; Start 07/28/18 at 07:15; Stop 07/28/18 at 09:14; Status DC Ceftriaxone Sodium 50 ml @ 100 mls/hr 1X ONCE IV Last administered on at 08:52; Start 07/28/18 at 08:15; Stop 07/28/18 at 08:44; Status DC Azithromycin 250 ml @ 250 mls/hr 1X ONCE IV Last administered on 07/28/18at 09: 20; Start 07/28/18 at 08:15; Stop 07/28/18 at 09:14; Status DC Acetaminophen/ Hydrocodone Bitart (Lortab 5/325) 2 tab 1X ONCE PO Last administered on 07/28/18at 08:49; Start 07/28/18 at 08:45; Stop 07/28/18 at 08:46; Status DC Ondansetron HCl (Zofran) 4 mg PRN Q8HRS PRN IV NAUSEA/VOMITING Last administered on 07/28/18at 22:40; Start 07/28/18 at 08:45; Stop 07/29/18 at 08:44; Status DC Acetaminophen (Tylenol) 650 mg PRN Q4HRS PRN PO FEVER Last administered on at 22:40; Start 07/28/18 at 08:45; Stop 07/29/18 at 08:44; Status DC Albuterol/ Ipratropium (Duoneb) 3 ml RTQID NEB Last administered on 07/29/18at 07 :29; Start 07/28/18 at 12:00; Stop 07/29/18 at 10:30; Status DC Acetaminophen/ Hydrocodone Bitart (Lortab 5/325) 2 tab Q6H PRN PO MODERATE- SEVERE PAIN Last administered on 07/29/18at 23:09; Start 07/28/18 at 08:45 Prednisone (Prednisone) 60 mg DAILY PO ; Start 07/29/18 at 09:00; Stop 07/29/18 at 09:00; Status DC Budesonide (Pulmicort) 0.5 mg RTBID NEB Last administered on 08/03/18at 07:49; Start 07/28/18 at 20:00 Budesonide (Pulmicort) 0.5 mg 1X ONCE NEB Last administered on 07/28/18at 11:06 ; Start 07/28/18 at 09:30; Stop 07/28/18 at 09:31; Status DC Albuterol Sulfate (Ventolin Neb Soln) 2.5 mg PRN Q4HRS PRN NEB SHORTNESS OF BREATH; Start 07/28/18 at 09:30 Azithromycin (Zithromax) 250 mg DAILY PO Last administered on 08/01/18at 08:54; Start 07/28/18 at 10:00; Stop 08/01/18 at 09:01; Status DC Alprazolam (Xanax) 0.25 mg PRN Q6HRS PRN PO ANXIETY / AGITATION Last administered on 07/29/18at 23:13; Start 07/28/18 at 12:45 Ibuprofen (Motrin) 800 mg PRN Q8HRS PRN PO PAIN MILD/INFLAMMATION; Start at 12:45 Benzonatate (Tessalon Perle) 100 mg PRN TID PRN PO COUGH 2ND CHOICE; Start 07/28 at 14:00 Citalopram Hydrobromide (CeleXA) 40 mg DAILY PO Last administered on 08/03/18at 08:20; Start 07/28/18 at 13:00 Metformin HCl (Glucophage) 500 mg BIDWMEALS PO Last administered on 07/29/18at 10 :07; Start 07/28/18 at 17:00; Stop 07/31/18 at 08:58; Status DC Promethazine HCl/ Codeine (Phenergan With Codeine) 5 ml PRN Q6HRS PRN PO COUGH 1ST CHOICE Last administered on 07/29/18at 16:25; Start 07/28/18 at 15:30 Guaifenesin (MUCINEX ER with DM) 1 tab BID PO Last administered on 07/30/18at 20: 57; Start 07/28/18 at 21:00; Stop 07/31/18 at 09:47; Status DC Lactobacillus Rhamnosus (Culturelle) 1 cap BID PO Last administered on at 21:44; Start 07/28/18 at 21:00; Stop 07/30/18 at 09:48; Status DC Prednisone (Prednisone) 30 mg DAILY PO Last administered on 07/29/18at 10:06; Start 07/29/18 at 09:00; Stop 07/31/18 at 08:58; Status DC Ceftriaxone Sodium 1 gm/ Dextrose 50 ml @ 100 mls/hr Q24H IV ; Start 07/29/18 at 09:00; Status UNV Ceftriaxone Sodium (Rocephin) 1 gm Q24H IVP Last administered on 07/29/18at 10:06 ; Start 07/29/18 at 09:00; Stop 07/30/18 at 10:07; Status DC Albuterol/ Ipratropium (Duoneb) 3 ml Q4HRS NEB Last administered on 08/02/18at 08 :40; Start 07/29/18 at 12:00; Stop 08/02/18 at 09:31; Status DC Budesonide (Pulmicort) 0.5 mg RTBID NEB ; Start 07/29/18 at 20:00; Status UNV Famotidine (Pepcid) 20 mg QHS PO Last administered on 07/29/18at 21:44; Start 07/29/18 at 21:00; Stop 07/30/18 at 10:10; Status DC Enoxaparin Sodium (Lovenox 40mg Syringe) 40 mg Q12H SQ Last administered on 08/03at 13:17; Start 07/29/18 at 12:30 Acetaminophen (Tylenol) 650 mg PRN Q6HRS PRN PO FEVER; Start 07/29/18 at 11:45 Ondansetron HCl (Zofran) 4 mg PRN Q6HRS PRN IV NAUSEA/VOMITING Last administered on 07/29/18at 15:23; Start 07/29/18 at 11:45 Morphine Sulfate (Morphine Sulfate) 2 mg PRN Q2HR PRN IV MODERATE TO SEVERE PAIN; Start 07/29/18 at 11:45 Tramadol HCl (Ultram) 50 mg PRN Q6HRS PRN PO MODERATE PAIN; Start 07/29/18 at 11 :45 Docusate Sodium (Colace) 100 mg PRN DAILY PRN PO CONSTIPATION; Start 07/29/18 at 11:45 Haloperidol Lactate (Haldol Inj) 2 mg PRN Q2HR PRN IVP AGITATION 2ND CHOICE Last administered on 08/01/18at 15:48; Start 07/30/18 at 01:30 Lorazepam (Ativan) 0.25 mg PRN Q1HR PRN IV ANXIETY/AGITATION 1ST CHOICE Last administered on 07/30/18at 03:30; Start 07/30/18 at 01:30 Propofol 100 ml @ As Directed STK-MED ONCE IV ; Start 07/30/18 at 04:12; Stop at 04:13; Status DC Etomidate (Amidate) 20 mg STK-MED ONCE IV ; Start 07/30/18 at 04:18; Stop at 04:19; Status DC Propofol 100 ml @ 0 mls/hr CONT PRN IV PER PROTOCOL Last administered on at 11:42; Start 07/30/18 at 04:30 Chlorhexidine Gluconate (Peridex) 15 ml BID MM Last administered on 08/03/18at 08 :20; Start 07/30/18 at 09:00 Midazolam HCl 100 ml @ 0 mls/hr CONT PRN IV PER PROTOCOL Last administered on at 19:14; Start 07/30/18 at 04:30 Piperacillin Sod/ Tazobactam Sod (Zosyn Per Pharmacy) 1 each PRN DAILY PRN MC SEE COMMENTS; Start 07/30/18 at 10:00 Vancomycin HCl (Vanco Per Pharmacy) 1 each PRN DAILY PRN MC SEE COMMENTS Last administered on 08/03/18at 08:31; Start 07/30/18 at 10:00; Stop 08/03/18 at 12:30; Status DC Methylprednisolone Sodium Succinate (SOLU-Medrol 125MG VIAL) 60 mg Q8HRS IV Last administered on 08/03/18at 05:49; Start 07/30/18 at 14:00; Stop 08/03/18 at 06: 32; Status DC Pantoprazole Sodium (PROTONIX VIAL for IV PUSH) 40 mg DAILYAC IVP Last administered on 08/03/18at 08:20; Start 07/30/18 at 10:30 Piperacillin Sod/ Tazobactam Sod 3.375 gm/Sodium Chloride 50 ml @ 100 mls/hr Q6HRS IV Last administered on 08/03/18at 11:38; Start 07/30/18 at 12:00 Vancomycin HCl 2 gm/Sodium Chloride 500 ml @ 250 mls/hr 1X ONCE IV Last administered on 07/30/18at 10:31; Start 07/30/18 at 10:30; Stop 07/30/18 at 12:29; Status DC Vancomycin HCl 1.5 gm/Sodium Chloride 500 ml @ 250 mls/hr Q8H IV Last administered on 07/31/18at 14:10; Start 07/30/18 at 18:30; Stop 07/31/18 at 17:00; Status DC Vancomycin HCl (Vancomycin Trough Level) 1 each 1X ONCE MC Last administered on 07/31/18at 13:30; Start 07/31/18 at 13:30; Stop 07/31/18 at 13:31; Status DC Insulin Human Lispro (HumaLOG) 0-7 UNITS TIDWMEALS SQ ; Start 07/31/18 at 08:00; Stop 07/31/18 at 09:04; Status DC Dextrose (Dextrose 50%-Water Syringe) 12.5 gm PRN Q15MIN PRN IV SEE COMMENTS; Start 07/30/18 at 17:45 Insulin Human Lispro (HumaLOG) 0-7 UNITS Q6HRS SQ Last administered on at 11:39; Start 07/31/18 at 12:00 Vancomycin HCl 1.75 gm/Sodium Chloride 500 ml @ 250 mls/hr Q8H IV Last administered on 08/01/18at 13:48; Start 07/31/18 at 22:00; Stop 08/01/18 at 22:01; Status DC Vancomycin HCl (Vancomycin Trough Level) 1 each 1X ONCE MC Last administered on 08/01/18at 21:01; Start 08/01/18 at 21:30; Stop 08/01/18 at 21:31; Status DC Erythromycin Ethylsuccinate (E.e.s. 200) 200 mg 1X ONCE PEG Last administered on 08/01/18at 12:19; Start 08/01/18 at 13:00; Stop 08/01/18 at 13:01; Status DC Vancomycin HCl 2 gm/Sodium Chloride 500 ml @ 250 mls/hr Q8H IV Last administered on 08/02/18at 22:56; Start 08/01/18 at 22:00; Stop 08/02/18 at 22:59; Status DC Vancomycin HCl (Vancomycin Trough Level) 1 each 1X ONCE MC Last administered on 08/02/18at 21:30; Start 08/02/18 at 21:30; Stop 08/02/18 at 21:31; Status DC Fentanyl Citrate 30 ml @ 0 mls/hr CONT PRN IV PER PROTOCOL Last administered on 08/03/18at 10:12; Start 08/02/18 at 07:00 Enalaprilat (Vasotec Inj) 1.25 mg PRN Q6HRS PRN IVP HYPERTENSION, SEE COMMENTS ; Start 08/02/18 at 09:15 Amlodipine Besylate (Norvasc) 2.5 mg DAILY PO Last administered on 08/03/18at 08: 21; Start 08/02/18 at 10:00 Albuterol/ Ipratropium (Duoneb) 3 ml RTQID NEB Last administered on 08/03/18at 11 :44; Start 08/02/18 at 12:00 Vancomycin HCl 1.75 gm/Sodium Chloride 500 ml @ 250 mls/hr Q6H IV Last administered on 08/03/18at 05:53; Start 08/03/18 at 05:00; Stop 08/03/18 at 08:23; Status DC Vancomycin HCl (Vancomycin Trough Level) 1 each 1X ONCE MC ; Start 08/03/18 at 22:30; Stop 08/03/18 at 22:31; Status Cancel Methylprednisolone Sodium Succinate (SOLU-Medrol 125MG VIAL) 40 mg Q8HRS IV Last administered on 08/03/18at 13:17; Start 08/03/18 at 14:00 Vancomycin HCl 2 gm/Sodium Chloride 500 ml @ 250 mls/hr Q8H IV ; Start 08/03/18 at 14:00; Stop 08/03/18 at 14:00; Status DC Azithromycin 500 mg/Sodium Chloride 250 ml @ 250 mls/hr Q24H IV Last administered on 08/03/18at 13:17; Start 08/03/18 at 13:00 Active Scripts Active Motrin Ib (Ibuprofen) 200 Mg Tablet 800 Mg PO Q8H PRN Tessalon Perle (Benzonatate) 100 Mg Capsule 100 Mg PO TID PRN Prednisone 20 Mg Tablet 40 Mg PO DAILY START MEDICATIONS ON 08/07/2016 Medrol (Methylprednisolone) 4 Mg Tab.ds.pk 1 Pkg PO UD Levaquin (Levofloxacin) 750 Mg Tablet 750 Mg PO DAILY06 Advair 250-50 Diskus (Fluticasone/Salmeterol) 1 Puff Puff 1 Puff INH BID Reported Topiramate 25 Mg Tablet 1 Tab PO HS Phentermine Hcl 37.5 Mg Capsule 1 Cap PO [id number] Metformin Hcl 500 Mg Tablet 500 Mg PO BIDWMEALS Escitalopram Oxalate 20 Mg Tablet 1 Tab PO DAILY Xanax (Alprazolam) 0.25 Mg Tablet 0.25 Mg PO PRN Q6HRS PRN Vitals/I & O Vital Sign - Last 24 Hours 08/02/18 08/02/18 08/02/18 08/02/18 15:00 15:23 16:00 16:00 Pulse 68 71 Resp 18 18 B/P (MAP) 139/65 (89) 141/67 (91) Pulse Ox 96 95 95 O2 Delivery Ventilator Ventilator Mechanical Ventilator Ventilator 08/02/18 08/02/18 08/02/18 08/02/18 17:00 17:19 18:00 19:00 Temp 99.3 99.3 Pulse 75 68 68 Resp 18 18 18 B/P (MAP) 138/79 (98) 134/83 (100) 144/84 (104) Pulse Ox 93 94 94 94 O2 Delivery Ventilator Ventilator Ventilator Ventilator 08/02/18 08/02/18 08/02/18 08/02/18 19:36 20:00 20:00 21:00 Temp 98.2 98.2 Pulse 70 64 Resp 18 18 B/P (MAP) 140/69 (92) 135/73 (93) Pulse Ox 94 92 94 O2 Delivery Ventilator Ventilator Mechanical Ventilator Ventilator 08/02/18 08/02/18 08/02/18 08/02/18 22:00 22:11 22:14 23:00 Pulse 64 62 Resp 18 18 B/P (MAP) 136/68 (90) 128/73 (91) Pulse Ox 92 95 95 96 O2 Delivery Ventilator Ventilator Ventilator O2 Flow Rate 15.0 08/03/18 08/03/18 08/03/18 08/03/18 00:00 00:00 00:21 01:00 Temp 99.1 99.1 99.1 99.1 Pulse 59 62 Resp 18 18 B/P (MAP) 118/66 (83) 119/73 (88) Pulse Ox 97 97 98 O2 Delivery Mechanical Ventilator Ventilator Ventilator Ventilator 08/03/18 08/03/18 08/03/18 08/03/18 02:00 03:00 03:00 03:23 Pulse 60 75 61 Resp 18 18 18 B/P (MAP) 116/67 (83) 135/75 (95) 135/79 (97) Pulse Ox 96 97 96 96 O2 Delivery Ventilator Ventilator Ventilator Ventilator 08/03/18 08/03/18 08/03/18 08/03/18 04:00 04:00 05:00 05:10 Temp 99.1 99.1 Pulse 54 52 Resp 18 18 B/P (MAP) 137/73 (94) 123/66 (85) Pulse Ox 97 96 96 O2 Delivery Mechanical Ventilator Ventilator Ventilator Ventilator 08/03/18 08/03/18 08/03/18 08/03/18 06:00 07:00 07:49 08:00 Pulse 53 53 Resp 18 18 B/P (MAP) 129/72 (91) 129/72 (91) Pulse Ox 96 96 96 O2 Delivery Ventilator Ventilator Ventilator Mechanical Ventilator 08/03/18 08/03/18 08/03/18 08/03/18 08:00 08:21 09:00 09:52 Temp 99.2 99.2 Pulse 50 57 Resp 18 18 B/P (MAP) 141/68 (92) 144/68 127/70 (89) Pulse Ox 94 96 94 O2 Delivery Ventilator Ventilator Ventilator 08/03/18 08/03/18 08/03/18 08/03/18 10:00 10:12 10:42 11:00 Temp 99.3 99.3 Pulse 56 57 Resp 18 18 18 B/P (MAP) 136/78 (97) 134/65 (88) Pulse Ox 96 96 96 94 O2 Delivery Ventilator Ventilator Ventilator O2 Flow Rate 15.0 08/03/18 08/03/18 08/03/18 08/03/18 11:44 12:00 12:00 13:00 Pulse 62 61 Resp 18 18 B/P (MAP) 136/76 (96) 147/74 (98) Pulse Ox 94 96 96 O2 Delivery Ventilator Mechanical Ventilator Ventilator Ventilator 08/03/18 14:00 Pulse 62 Resp 20 B/P (MAP) 137/80 (99) Pulse Ox 96 O2 Delivery Ventilator Intake and Output 08/02/18 08/02/18 08/03/18 15:00 23:00 07:00 Intake Total 720 ml 840 ml 1311 ml Output Total 605 ml 210 ml 1190 ml Balance 115 ml 630 ml 121 ml RAMON RUST MD Aug 03, 2018 14:48
[2018-08-03 14:55] LABS: INFLUENZA A PATIENT NEGATIVE (NEGATIVE); INFLUENZA B PATIENT NEGATIVE (NEGATIVE)
[2018-08-03 16:24] LABS: MYCOPLASMA PATIENT NEGATIVE (NEGATIVE)
--- NOTE | 2018-08-03 22:43 | CONS ---
DATE OF CONSULTATION: 08/03/2018 REQUESTING PHYSICIAN: Dr. Busch. REASON FOR CONSULTATION: Questionable sepsis. HISTORY OF PRESENT ILLNESS: The patient is a 32-year-old obese female with history of asthma and previous rhinovirus infection who was admitted to [facility] secondary to shortness of air and wheezing. Subsequently required intubation. Cultures are negative. She has been on vancomycin, as well as Zosyn. She is now on Solu-Medrol. Her white count increased to 12.7 and running low grade, 99, temps. Blood cultures have been negative from the 3rd. Chest x-ray has bilateral lung opacities and trace effusion. PAST MEDICAL HISTORY: Positive for asthma, anxiety, COPD, depression, pneumonia, history of rhinovirus mentioned above, previous trach and PEG, history of cholecystectomy, and previous . REVIEW OF SYSTEMS: Unobtainable, as she is intubated. ALLERGIES: Listed as DIPHENHYDRAMINE. SOCIAL HISTORY: Apparent smoker, but otherwise uncertain. FAMILY HISTORY: Unknown. CURRENT MEDICATIONS: Include vancomycin, Zosyn, albuterol, Xanax, Norvasc, Pulmicort, Peridex, citalopram, haloperidol, insulin, Solu-Medrol, tramadol. Other meds are available and reviewed in the chart. PHYSICAL EXAMINATION: VITAL SIGNS: She has been running 99.3 oral, pulse 62, respirations 18, blood pressure 136/76, satting 96% on ventilator. CONSTITUTIONAL: She is intubated. She is lightly sedated. HEENT: Pupils are equal and reactive. NECK: Supple. She has a right IJ without signs of any complications. No JVD. LUNGS: Decreased at bases. HEART: S1, S2, mild tachycardic. ABDOMEN: Obese, soft, nontender, nondistended, positive bowel sounds. King without signs of complications. EXTREMITIES: No clubbing, cyanosis or gross edema. SKIN: Without signs of rash. NEUROLOGIC: She was somewhat alert, moving around a little bit, but she is slightly lightly restrained. LABORATORY VALUES: White count 12.7, hemoglobin 10.8, platelets of 312, neutrophils 78, lymphs 13. Sed rate was 43, creatinine 0.6, glucose 178, AST 172, ALT 477. MRSA screen is negative. IMAGING DATA: Chest x-ray reviewed in history of present illness. IMPRESSION: 1. Leukocytosis, currently on steroids. 2. Acute respiratory failure, intubated. 3. Community-acquired pneumonia. 4. Transaminitis. 5. Morbid obesity. RECOMMENDATIONS: Discontinue the vancomycin, continue Zosyn. We will add azithromycin. Check influenza. Check strep antigen, as well as Legionella and mycoplasma, UA, C and S, and recommend a respiratory viral panel try to order this as a miscellaneous. Thank you for allowing me to participate in the patient's care. Should you have further questions, please do not hesitate to contact me. Thirty-five minutes of critical care time. ADIA HOGAN MD DR: NATE/lester JOB#: [id number] / [id number]
[2018-08-04] VITALS (24 sets, daily range): BP systolic 112–165; BP diastolic 61–90
[2018-08-04] MEDS: PIPERACILLIN/TAZOBACTAM 3.375 GM in IV NORMAL SALINE 50ML 50 ML IV SCH ×5 (00:09→23:48)
[2018-08-04] MEDS: ENOXAPARIN 40 MG/0.4 ML SYRINGE. SQ SCH ×2 (00:10→12:15)
[2018-08-04] MEDS: PROPOFOL 100 ML IV PRN ×8 (01:25→22:27)
[2018-08-04] MEDS: methylPREDNISolone SOD SUCC PF 125 MG/2 ML VIAL. IV SCH ×3 (05:35→21:47)
[2018-08-04] MEDS: INSULIN LISPRO 300 UNITS/3 ML INSULN.PEN. SQ SCH ×5 (05:36→23:48)
[2018-08-04 05:56] LABS: BASO % 0 % (0-3); EOS # 0.1 x10^3/uL (0.0-0.7); EOS % 1 % (0-3); HEMATOCRIT 32.7 % (36.0-47.0); HEMOGLOBIN 10.8 g/dL (12.0-15.5); LYMPH # 2.1 x10^3/uL (1.0-4.8); LYMPH % 17 % (24-48); MEAN CORPUSCULAR HEMOGLOBIN 27 pg (25-35); MEAN CORPUSCULAR HGB CONC 33 g/dL (31-37); MEAN CORPUSCULAR VOLUME 82 fL (79-100); MONO # 0.7 x10^3/uL (0.0-1.1); MONO % 6 % (0-9); NEUT # 9.8 x10^3uL (1.8-7.7); NEUT % 77 % (31-73); PLATELET COUNT 297 x10^3/uL (140-400); RED BLOOD COUNT 3.99 x10^6/uL (3.50-5.40); RED CELL DISTRIBUTION WIDTH 13.9 % (11.5-14.5); WHITE BLOOD COUNT 12.8 x10^3/uL (4.0-11.0)
[2018-08-04 06:16] LABS: ALBUMIN 2.4 g/dL (3.4-5.0); ALBUMIN/GLOBULIN RATIO 0.6 (1.0-1.7); CALCIUM 8.4 mg/dL (8.5-10.1); CREATININE 0.6 mg/dL (0.6-1.0); GFR 117.4; POTASSIUM 4.1 mmol/L (3.5-5.1); TOTAL BILIRUBIN 0.6 mg/dL (0.2-1.0); TOTAL PROTEIN 6.3 g/dL (6.4-8.2)
--- NOTE | 2018-08-04 07:42 | PDOC ---
Infectious Disease Note Subjective Subjective pt is intubated on vent ROS ROS no n/v/d/fever Vital Sign Vital Signs Vital Signs Date Time Temp Pulse Resp B/P (MAP) Pulse Ox O2 Delivery O2 Flow Rate FiO2 08/04/18 06:00 66 18 148/71 (96) 95 Ventilator 08/04/18 04:34 15.0 08/04/18 03:00 98.8 98.8 Physical Exam PHYSICAL EXAM CONSTITUTIONAL: She is intubated. She is lightly sedated. HEENT: Pupils are equal and reactive. NECK: Supple. She has a right IJ without signs of any complications. No JVD. LUNGS: Decreased at bases. HEART: S1, S2, mild tachycardic. ABDOMEN: Obese, soft, nontender, nondistended, positive bowel sounds. King without signs of complications. EXTREMITIES: No clubbing, cyanosis or gross edema. SKIN: Without signs of rash. NEUROLOGIC: She was somewhat alert, moving around a little bit, but she is sedated Labs Lab Laboratory Tests Test 08/03/18 08:00 08/03/18 11:36 08/03/18 13:45 08/03/18 16:29 O2 Saturation 93 % (92-99) Arterial Blood pH 7.39 (7.35-7.45) Arterial Blood pCO2 at Patient Temp 52 mmHg (35-46) Arterial Blood pO2 at Patient Temp 72 mmHg (85-108) Arterial Blood HCO3 31 mmol/L (21-28) Arterial Blood Base Excess 5 mmol/L (-3-3) FiO2 60 Glucose (Fingerstick) 156 mg/dL (70-99) 148 mg/dL (70-99) Influenza Type A Antigen Negative (NEGATIVE) Influenza Type B Antigen Negative (NEGATIVE) Test 08/04/18 00:12 08/04/18 05:14 08/04/18 05:32 Glucose (Fingerstick) 148 mg/dL (70-99) 185 mg/dL (70-99) White Blood Count 12.8 x10^3/uL (4.0-11.0) Red Blood Count 3.99 x10^6/uL (3.50-5.40) Hemoglobin 10.8 g/dL (12.0-15.5) Hematocrit 32.7 % (36.0-47.0) Mean Corpuscular Volume 82 fL (79-100) Mean Corpuscular Hemoglobin 27 pg (25-35) Mean Corpuscular Hemoglobin Concent 33 g/dL (31-37) Red Cell Distribution Width 13.9 % (11.5-14.5) Platelet Count 297 x10^3/uL (140-400) Neutrophils (%) (Auto) 77 % (31-73) Lymphocytes (%) (Auto) 17 % (24-48) Monocytes (%) (Auto) 6 % (0-9) Eosinophils (%) (Auto) 1 % (0-3) Basophils (%) (Auto) 0 % (0-3) Neutrophils # (Auto) 9.8 x10^3uL (1.8-7.7) Lymphocytes # (Auto) 2.1 x10^3/uL (1.0-4.8) Monocytes # (Auto) 0.7 x10^3/uL (0.0-1.1) Eosinophils # (Auto) 0.1 x10^3/uL (0.0-0.7) Basophils # (Auto) 0.0 x10^3/uL (0.0-0.2) Sodium Level 140 mmol/L (136-145) Potassium Level 4.1 mmol/L (3.5-5.1) Chloride Level 104 mmol/L (98-107) Carbon Dioxide Level 32 mmol/L (21-32) Anion Gap 4 (6-14) Blood Urea Nitrogen 19 mg/dL (7-20) Creatinine 0.6 mg/dL (0.6-1.0) Estimated GFR (Cockcroft-Gault) 117.4 BUN/Creatinine Ratio 32 (6-20) Glucose Level 196 mg/dL (70-99) Calcium Level 8.4 mg/dL (8.5-10.1) Total Bilirubin 0.6 mg/dL (0.2-1.0) Aspartate Amino Transf (AST/SGOT) 167 U/L (15-37) Alanine Aminotransferase (ALT/SGPT) 592 U/L (14-59) Alkaline Phosphatase 87 U/L (46-116) Total Protein 6.3 g/dL (6.4-8.2) Albumin 2.4 g/dL (3.4-5.0) Albumin/Globulin Ratio 0.6 (1.0-1.7) Triglycerides Level 308 mg/dL (0-150) Micro Microbiology 07/28/18 Blood Culture - Final, Complete NO GROWTH AFTER 5 DAYS Objective Assessment 1. Leukocytosis, currently on steroids. 2. Acute respiratory failure, intubated. 3. Community-acquired pneumonia. 4. Transaminitis. 5. Morbid obesity. 6. h/o Asthma Plan Plan of Care Cont Zosyn and Azithromycin influenza neg Check strep antigen/Legionella/Mycoplasma UA C and S Recommend Resp viral panel - will try to order as Miscellaneous F/u labs and cults PAULO CHIN MD Aug 04, 2018 07:42
[2018-08-04] MEDS: IPRATRPIUM/ALBUTEROL 0.5/2.5MG 3 ML NEBU. NEB SCH ×4 (08:10→20:20)
[2018-08-04] MEDS: BUDESONIDE 0.5 MG/2 ML NEBU. NEB SCH ×2 (08:10→20:20)
--- NOTE | 2018-08-04 08:31 | PDOC ---
PULMONARY PROGRESS NOTES Subjective patient intubated 07/30 after progressive hypoxia and failed BIPAP 50% FIO2/ 9 PEEP Vitals Vital Signs Date Time Temp Pulse Resp B/P (MAP) Pulse Ox O2 Delivery O2 Flow Rate FiO2 08/04/18 08:13 96 Ventilator 08/04/18 06:00 66 18 148/71 (96) 08/04/18 04:34 15.0 08/04/18 03:00 98.8 98.8 HEENT: Other (nc at perrl. nose throat clear.... neck, no lad, no thyromegaly) Lungs: Crackles Cardiovascular: S1, S2 Abdomen: Soft, Non-tender, Other (no mass) Extremities: Other (trace edema) Skin: Warm Labs Laboratory Tests Test 08/02/18 08:40 08/02/18 10:57 08/02/18 17:15 08/02/18 22:10 O2 Saturation 96 % (92-99) Arterial Blood pH 7.45 (7.35-7.45) Arterial Blood pCO2 at Patient Temp 43 mmHg (35-46) Arterial Blood pO2 at Patient Temp 84 mmHg (85-108) Arterial Blood HCO3 29 mmol/L (21-28) Arterial Blood Base Excess 4 mmol/L (-3-3) FiO2 60 Glucose (Fingerstick) 139 mg/dL (70-99) 148 mg/dL (70-99) Vancomycin Level Trough 12.1 mcg/mL (10.0-20.0) Vancomycin Last Dose Date 08/03/18 Vancomycin Last Dose Time 1400 Test 08/03/18 01:47 08/03/18 04:05 08/03/18 08:00 08/03/18 11:36 Glucose (Fingerstick) 161 mg/dL (70-99) 156 mg/dL (70-99) White Blood Count 12.7 x10^3/uL (4.0-11.0) Red Blood Count 3.95 x10^6/uL (3.50-5.40) Hemoglobin 10.8 g/dL (12.0-15.5) Hematocrit 32.4 % (36.0-47.0) Mean Corpuscular Volume 82 fL (79-100) Mean Corpuscular Hemoglobin 27 pg (25-35) Mean Corpuscular Hemoglobin Concent 33 g/dL (31-37) Red Cell Distribution Width 14.1 % (11.5-14.5) Platelet Count 312 x10^3/uL (140-400) Neutrophils (%) (Auto) 78 % (31-73) Lymphocytes (%) (Auto) 13 % (24-48) Monocytes (%) (Auto) 9 % (0-9) Eosinophils (%) (Auto) 0 % (0-3) Basophils (%) (Auto) 0 % (0-3) Neutrophils # (Auto) 9.9 x10^3uL (1.8-7.7) Lymphocytes # (Auto) 1.7 x10^3/uL (1.0-4.8) Monocytes # (Auto) 1.1 x10^3/uL (0.0-1.1) Eosinophils # (Auto) 0.0 x10^3/uL (0.0-0.7) Basophils # (Auto) 0.0 x10^3/uL (0.0-0.2) Sodium Level 143 mmol/L (136-145) Potassium Level 4.1 mmol/L (3.5-5.1) Chloride Level 107 mmol/L (98-107) Carbon Dioxide Level 33 mmol/L (21-32) Anion Gap 3 (6-14) Blood Urea Nitrogen 23 mg/dL (7-20) Creatinine 0.6 mg/dL (0.6-1.0) Estimated GFR (Cockcroft-Gault) 117.4 BUN/Creatinine Ratio 38 (6-20) Glucose Level 178 mg/dL (70-99) Calcium Level 8.5 mg/dL (8.5-10.1) Total Bilirubin 0.7 mg/dL (0.2-1.0) Aspartate Amino Transf (AST/SGOT) 172 U/L (15-37) Alanine Aminotransferase (ALT/SGPT) 477 U/L (14-59) Alkaline Phosphatase 92 U/L (46-116) Total Protein 6.5 g/dL (6.4-8.2) Albumin 2.3 g/dL (3.4-5.0) Albumin/Globulin Ratio 0.5 (1.0-1.7) Mycoplasma Serology (LAB) Negative (NEGATIVE) O2 Saturation 93 % (92-99) Arterial Blood pH 7.39 (7.35-7.45) Arterial Blood pCO2 at Patient Temp 52 mmHg (35-46) Arterial Blood pO2 at Patient Temp 72 mmHg (85-108) Arterial Blood HCO3 31 mmol/L (21-28) Arterial Blood Base Excess 5 mmol/L (-3-3) FiO2 60 Test 08/03/18 13:45 08/03/18 16:29 08/04/18 00:12 08/04/18 05:14 Influenza Type A Antigen Negative (NEGATIVE) Influenza Type B Antigen Negative (NEGATIVE) Glucose (Fingerstick) 148 mg/dL (70-99) 148 mg/dL (70-99) White Blood Count 12.8 x10^3/uL (4.0-11.0) Red Blood Count 3.99 x10^6/uL (3.50-5.40) Hemoglobin 10.8 g/dL (12.0-15.5) Hematocrit 32.7 % (36.0-47.0) Mean Corpuscular Volume 82 fL (79-100) Mean Corpuscular Hemoglobin 27 pg (25-35) Mean Corpuscular Hemoglobin Concent 33 g/dL (31-37) Red Cell Distribution Width 13.9 % (11.5-14.5) Platelet Count 297 x10^3/uL (140-400) Neutrophils (%) (Auto) 77 % (31-73) Lymphocytes (%) (Auto) 17 % (24-48) Monocytes (%) (Auto) 6 % (0-9) Eosinophils (%) (Auto) 1 % (0-3) Basophils (%) (Auto) 0 % (0-3) Neutrophils # (Auto) 9.8 x10^3uL (1.8-7.7) Lymphocytes # (Auto) 2.1 x10^3/uL (1.0-4.8) Monocytes # (Auto) 0.7 x10^3/uL (0.0-1.1) Eosinophils # (Auto) 0.1 x10^3/uL (0.0-0.7) Basophils # (Auto) 0.0 x10^3/uL (0.0-0.2) Sodium Level 140 mmol/L (136-145) Potassium Level 4.1 mmol/L (3.5-5.1) Chloride Level 104 mmol/L (98-107) Carbon Dioxide Level 32 mmol/L (21-32) Anion Gap 4 (6-14) Blood Urea Nitrogen 19 mg/dL (7-20) Creatinine 0.6 mg/dL (0.6-1.0) Estimated GFR (Cockcroft-Gault) 117.4 BUN/Creatinine Ratio 32 (6-20) Glucose Level 196 mg/dL (70-99) Calcium Level 8.4 mg/dL (8.5-10.1) Total Bilirubin 0.6 mg/dL (0.2-1.0) Aspartate Amino Transf (AST/SGOT) 167 U/L (15-37) Alanine Aminotransferase (ALT/SGPT) 592 U/L (14-59) Alkaline Phosphatase 87 U/L (46-116) Total Protein 6.3 g/dL (6.4-8.2) Albumin 2.4 g/dL (3.4-5.0) Albumin/Globulin Ratio 0.6 (1.0-1.7) Triglycerides Level 308 mg/dL (0-150) Test 08/04/18 05:32 Glucose (Fingerstick) 185 mg/dL (70-99) Laboratory Tests Test 08/03/18 11:36 08/03/18 13:45 08/03/18 16:29 08/04/18 00:12 Glucose (Fingerstick) 156 mg/dL (70-99) 148 mg/dL (70-99) 148 mg/dL (70-99) Influenza Type A Antigen Negative (NEGATIVE) Influenza Type B Antigen Negative (NEGATIVE) Test 08/04/18 05:14 08/04/18 05:32 White Blood Count 12.8 x10^3/uL (4.0-11.0) Red Blood Count 3.99 x10^6/uL (3.50-5.40) Hemoglobin 10.8 g/dL (12.0-15.5) Hematocrit 32.7 % (36.0-47.0) Mean Corpuscular Volume 82 fL (79-100) Mean Corpuscular Hemoglobin 27 pg (25-35) Mean Corpuscular Hemoglobin Concent 33 g/dL (31-37) Red Cell Distribution Width 13.9 % (11.5-14.5) Platelet Count 297 x10^3/uL (140-400) Neutrophils (%) (Auto) 77 % (31-73) Lymphocytes (%) (Auto) 17 % (24-48) Monocytes (%) (Auto) 6 % (0-9) Eosinophils (%) (Auto) 1 % (0-3) Basophils (%) (Auto) 0 % (0-3) Neutrophils # (Auto) 9.8 x10^3uL (1.8-7.7) Lymphocytes # (Auto) 2.1 x10^3/uL (1.0-4.8) Monocytes # (Auto) 0.7 x10^3/uL (0.0-1.1) Eosinophils # (Auto) 0.1 x10^3/uL (0.0-0.7) Basophils # (Auto) 0.0 x10^3/uL (0.0-0.2) Sodium Level 140 mmol/L (136-145) Potassium Level 4.1 mmol/L (3.5-5.1) Chloride Level 104 mmol/L (98-107) Carbon Dioxide Level 32 mmol/L (21-32) Anion Gap 4 (6-14) Blood Urea Nitrogen 19 mg/dL (7-20) Creatinine 0.6 mg/dL (0.6-1.0) Estimated GFR (Cockcroft-Gault) 117.4 BUN/Creatinine Ratio 32 (6-20) Glucose Level 196 mg/dL (70-99) Calcium Level 8.4 mg/dL (8.5-10.1) Total Bilirubin 0.6 mg/dL (0.2-1.0) Aspartate Amino Transf (AST/SGOT) 167 U/L (15-37) Alanine Aminotransferase (ALT/SGPT) 592 U/L (14-59) Alkaline Phosphatase 87 U/L (46-116) Total Protein 6.3 g/dL (6.4-8.2) Albumin 2.4 g/dL (3.4-5.0) Albumin/Globulin Ratio 0.6 (1.0-1.7) Triglycerides Level 308 mg/dL (0-150) Glucose (Fingerstick) 185 mg/dL (70-99) Medications Active Scripts Medications Dose Route/Sig Max Daily Dose Days Date Category Dose Instructions Topiramate 25 Mg Tablet 1 Tab PO HS 07/28/18 Reported Phentermine Hcl 37.5 Mg Capsule 1 Cap PO [id number] 07/28/18 Reported Metformin Hcl 500 Mg Tablet 500 Mg PO BIDWMEALS 07/28/18 Reported Motrin Ib (Ibuprofen) 200 Mg Tablet 800 Mg PO Q8H PRN 08/15/17 Rx Tessalon Perle (Benzonatate) 100 Mg Capsule 100 Mg PO TID PRN 01/11/17 Rx Prednisone 20 Mg Tablet 40 Mg PO DAILY 08/06/16 Rx START MEDICATIONS ON 08/07/2016 Medrol (Methylprednisolone) 4 Mg Tab.ds.pk 1 Pkg PO UD 11/16/14 Rx Levaquin (Levofloxacin) 750 Mg Tablet 750 Mg PO DAILY06 11/16/14 Rx Advair 250-50 Diskus (Fluticasone/Salmeterol) 1 Puff Puff 1 Puff INH BID 11/16/14 Rx Escitalopram Oxalate 20 Mg Tablet 1 Tab PO DAILY 11/09/14 Reported Xanax (Alprazolam) 0.25 Mg Tablet 0.25 Mg PO PRN Q6HRS PRN 11/09/14 Reported Comments Comparison is made to yesterday's study. The ET tube tip lies well above the tom. An NG tube extends into the stomach. A right jugular central venous catheter remains in place extending into the superior aspect of the right atrium. The heart is mildly enlarged and unchanged. There are moderate patchy bibasilar pulmonary infiltrates, with complete obscuration of the left hemidiaphragm. These are unchanged since yesterday's study. These infiltrates have worsened since older studies such as 08/01/2018. There may be pleural fluid contributing to the left basilar opacity. No new abnormality is seen. Impression . 1. Acute respiratory failure requiring mechanical ventilation 07/30. ARDS/ diffuse pneumonia 2. Acute exacerbation of chronic obstructive pulmonary disease with an asthma component. 3. abnl cxr, Diffuse lung infiltrates, suspect diffuse lung pneumonia/ ARDS 4. Morbid obesity, body mass index of 40, prob ji. 5. H/O Anxiety/panic attacks. 6. Status post cholecystectomy. Plan . spoke with RN AND RT WILL INCREASE I:E RATIO TO 1;1 1. AC mode, PEEP 9 START DECREASING PEEP IN AM 2. bronchodilators, cont Pulmicort, cont solumedrol to 40 q 8hrs 3. sed rate (43). continue steroids, 4. FOLLOW CXR 5. BS Abx 6. echo reviewed. normal EF/ PA pressures 7. mild diuresis prn 8. enteral nutrition 9. lovenox and protonix for prophylaxis 10. sputum cx CCT 30 MIN DESI HERNÁNDEZ MD Aug 04, 2018 08:31
--- NOTE | 2018-08-04 08:34 | RAD ---
Portable chest, 08/04/2018: HISTORY: Acute respiratory distress Comparison is made to yesterday's study. The ET tube tip lies well above the tom. An NG tube extends into the stomach. A right jugular central venous catheter remains in place extending into the superior aspect of the right atrium. The heart is mildly enlarged and unchanged. There are moderate patchy bibasilar pulmonary infiltrates, with complete obscuration of the left hemidiaphragm. These are unchanged since yesterday's study. These infiltrates have worsened since older studies such as 08/01/2018. There may be pleural fluid contributing to the left basilar opacity. No new abnormality is seen. IMPRESSION: No significant change since yesterday's study. Electronically signed by: Genaro Moreno MD (08/04/2018 8:30 AM) [facility]
[2018-08-04] MEDS: PANTOPRAZOLE IV PUSH 40 MG VIAL. IVP SCH (08:50)
[2018-08-04] MEDS: CITALOPRAM 20 MG TABLET. PO SCH (08:50)
[2018-08-04] MEDS: CHLORHEXIDINE 0.12% 15 ML MOUTHWASH. MM SCH ×2 (08:51→20:53)
[2018-08-04] MEDS: amLODIPine BESYLATE 2.5 MG TABLET PO SCH (08:51)
[2018-08-04 09:35] LABS: BASE EXCESS ABG 6 mmol/L (-3-3); HCO3 ABG 30 mmol/L (21-28); PCO2 ABG 43 mmHg (35-46); PO2 ABG 83 mmHg (85-108); SAT O2 ABG 96 % (92-99)
[2018-08-04 09:37] LABS: FIO2 ABG 60
--- NOTE | 2018-08-04 11:31 | PDOC ---
Objective: Objective: No GI concerns per RN. Vital Signs: Vital Signs Date Time Temp Pulse Resp B/P (MAP) Pulse Ox O2 Delivery O2 Flow Rate FiO2 08/04/18 10:33 18 Ventilator 08/04/18 10:00 51 134/75 (94) 95 08/04/18 08:00 98.9 98.9 08/04/18 04:34 15.0 Labs: Laboratory Tests Test 08/03/18 11:36 08/03/18 13:45 08/03/18 16:29 08/04/18 00:12 Glucose (Fingerstick) 156 mg/dL 148 mg/dL 148 mg/dL Influenza Type A Antigen Negative Influenza Type B Antigen Negative Test 08/04/18 05:14 08/04/18 05:32 08/04/18 07:40 White Blood Count 12.8 x10^3/uL Red Blood Count 3.99 x10^6/uL Hemoglobin 10.8 g/dL Hematocrit 32.7 % Mean Corpuscular Volume 82 fL Mean Corpuscular Hemoglobin 27 pg Mean Corpuscular Hemoglobin Concent 33 g/dL Red Cell Distribution Width 13.9 % Platelet Count 297 x10^3/uL Neutrophils (%) (Auto) 77 % Lymphocytes (%) (Auto) 17 % Monocytes (%) (Auto) 6 % Eosinophils (%) (Auto) 1 % Basophils (%) (Auto) 0 % Neutrophils # (Auto) 9.8 x10^3uL Lymphocytes # (Auto) 2.1 x10^3/uL Monocytes # (Auto) 0.7 x10^3/uL Eosinophils # (Auto) 0.1 x10^3/uL Basophils # (Auto) 0.0 x10^3/uL Sodium Level 140 mmol/L Potassium Level 4.1 mmol/L Chloride Level 104 mmol/L Carbon Dioxide Level 32 mmol/L Anion Gap 4 Blood Urea Nitrogen 19 mg/dL Creatinine 0.6 mg/dL Estimated GFR (Cockcroft-Gault) 117.4 BUN/Creatinine Ratio 32 Glucose Level 196 mg/dL Calcium Level 8.4 mg/dL Total Bilirubin 0.6 mg/dL Aspartate Amino Transf (AST/SGOT) 167 U/L Alanine Aminotransferase (ALT/SGPT) 592 U/L Alkaline Phosphatase 87 U/L Total Protein 6.3 g/dL Albumin 2.4 g/dL Albumin/Globulin Ratio 0.6 Triglycerides Level 308 mg/dL Glucose (Fingerstick) 185 mg/dL O2 Saturation 96 % Arterial Blood pH 7.46 Arterial Blood pCO2 at Patient Temp 43 mmHg Arterial Blood pO2 at Patient Temp 83 mmHg Arterial Blood HCO3 30 mmol/L Arterial Blood Base Excess 6 mmol/L FiO2 60 Imaging: CXR IMPRESSION: No significant change since yesterday's study. PE: GEN: intubated LUNGS: vent HEART: bradycardic ABD: large, soft, BS+ NEURO/PSYCH: sedated A/P: ARDS - tolerating OGT feeds Transaminitis - possibly 2/2 elevated right heart pressure -- Monitor LFTs, could consider RUQ US. ANGE VILLEDA Aug 04, 2018 11:31
--- NOTE | 2018-08-04 12:00 | PDOC ---
PROGRESS NOTES Chief Complaint Chief Complaint Acute hypoxic respiratory failure with intubation Sepsis Pneumonia EZ lobe Acute asthma exacerbation Obesity Possible ileus Transaminitis, NOS History of Present Illness History of Present Illness Pt seen and examined in ICU Dw RN Pt sedated on ventilator A/C/18/550/50% w/ 9 PEEP Vitals Vitals Vital Signs Date Time Temp Pulse Resp B/P (MAP) Pulse Ox O2 Delivery O2 Flow Rate FiO2 08/04/18 11:47 Ventilator 08/04/18 11:00 53 18 127/66 (86) 94 08/04/18 08:00 98.9 98.9 08/04/18 04:34 15.0 Physical Exam General: No acute distress, Other (sedated) Heart: Regular rate, Normal S1, Normal S2 Lungs: Crackles Abdomen: Normal bowel sounds, Soft Extremities: No cyanosis, No edema, Normal pulses Skin: No rashes, No significant lesion Labs LABS Laboratory Tests Test 08/03/18 13:45 08/03/18 16:29 08/04/18 00:12 08/04/18 05:14 Influenza Type A Antigen Negative (NEGATIVE) Influenza Type B Antigen Negative (NEGATIVE) Glucose (Fingerstick) 148 mg/dL (70-99) 148 mg/dL (70-99) White Blood Count 12.8 x10^3/uL (4.0-11.0) Red Blood Count 3.99 x10^6/uL (3.50-5.40) Hemoglobin 10.8 g/dL (12.0-15.5) Hematocrit 32.7 % (36.0-47.0) Mean Corpuscular Volume 82 fL (79-100) Mean Corpuscular Hemoglobin 27 pg (25-35) Mean Corpuscular Hemoglobin Concent 33 g/dL (31-37) Red Cell Distribution Width 13.9 % (11.5-14.5) Platelet Count 297 x10^3/uL (140-400) Neutrophils (%) (Auto) 77 % (31-73) Lymphocytes (%) (Auto) 17 % (24-48) Monocytes (%) (Auto) 6 % (0-9) Eosinophils (%) (Auto) 1 % (0-3) Basophils (%) (Auto) 0 % (0-3) Neutrophils # (Auto) 9.8 x10^3uL (1.8-7.7) Lymphocytes # (Auto) 2.1 x10^3/uL (1.0-4.8) Monocytes # (Auto) 0.7 x10^3/uL (0.0-1.1) Eosinophils # (Auto) 0.1 x10^3/uL (0.0-0.7) Basophils # (Auto) 0.0 x10^3/uL (0.0-0.2) Sodium Level 140 mmol/L (136-145) Potassium Level 4.1 mmol/L (3.5-5.1) Chloride Level 104 mmol/L (98-107) Carbon Dioxide Level 32 mmol/L (21-32) Anion Gap 4 (6-14) Blood Urea Nitrogen 19 mg/dL (7-20) Creatinine 0.6 mg/dL (0.6-1.0) Estimated GFR (Cockcroft-Gault) 117.4 BUN/Creatinine Ratio 32 (6-20) Glucose Level 196 mg/dL (70-99) Calcium Level 8.4 mg/dL (8.5-10.1) Total Bilirubin 0.6 mg/dL (0.2-1.0) Aspartate Amino Transf (AST/SGOT) 167 U/L (15-37) Alanine Aminotransferase (ALT/SGPT) 592 U/L (14-59) Alkaline Phosphatase 87 U/L (46-116) Total Protein 6.3 g/dL (6.4-8.2) Albumin 2.4 g/dL (3.4-5.0) Albumin/Globulin Ratio 0.6 (1.0-1.7) Triglycerides Level 308 mg/dL (0-150) Test 08/04/18 05:32 08/04/18 07:40 Glucose (Fingerstick) 185 mg/dL (70-99) O2 Saturation 96 % (92-99) Arterial Blood pH 7.46 (7.35-7.45) Arterial Blood pCO2 at Patient Temp 43 mmHg (35-46) Arterial Blood pO2 at Patient Temp 83 mmHg (85-108) Arterial Blood HCO3 30 mmol/L (21-28) Arterial Blood Base Excess 6 mmol/L (-3-3) FiO2 60 Review of Systems Review of Systems Pt sedated Assessment and Plan Assessmemt and Plan Problems Medical Problems: (1) Pneumonia Status: Acute Acute hypoxic respiratory failure with intubation Sepsis Pneumonia EZ lobe Acute asthma exacerbation Obesity Possible ileus Transaminitis, NOS Plan: ICU monitoring Vent weaning Sedated w/ propofol Labs Continue Abx IV fentanyl King OG tube Comment Review of Relevant I have reviewed the following items [place] (where applicable) has been applied. Labs Laboratory Tests Test 08/02/18 17:15 08/02/18 22:10 08/03/18 01:47 08/03/18 04:05 Glucose (Fingerstick) 148 mg/dL (70-99) 161 mg/dL (70-99) Vancomycin Level Trough 12.1 mcg/mL (10.0-20.0) Vancomycin Last Dose Date 08/03/18 Vancomycin Last Dose Time 1400 White Blood Count 12.7 x10^3/uL (4.0-11.0) Red Blood Count 3.95 x10^6/uL (3.50-5.40) Hemoglobin 10.8 g/dL (12.0-15.5) Hematocrit 32.4 % (36.0-47.0) Mean Corpuscular Volume 82 fL (79-100) Mean Corpuscular Hemoglobin 27 pg (25-35) Mean Corpuscular Hemoglobin Concent 33 g/dL (31-37) Red Cell Distribution Width 14.1 % (11.5-14.5) Platelet Count 312 x10^3/uL (140-400) Neutrophils (%) (Auto) 78 % (31-73) Lymphocytes (%) (Auto) 13 % (24-48) Monocytes (%) (Auto) 9 % (0-9) Eosinophils (%) (Auto) 0 % (0-3) Basophils (%) (Auto) 0 % (0-3) Neutrophils # (Auto) 9.9 x10^3uL (1.8-7.7) Lymphocytes # (Auto) 1.7 x10^3/uL (1.0-4.8) Monocytes # (Auto) 1.1 x10^3/uL (0.0-1.1) Eosinophils # (Auto) 0.0 x10^3/uL (0.0-0.7) Basophils # (Auto) 0.0 x10^3/uL (0.0-0.2) Sodium Level 143 mmol/L (136-145) Potassium Level 4.1 mmol/L (3.5-5.1) Chloride Level 107 mmol/L (98-107) Carbon Dioxide Level 33 mmol/L (21-32) Anion Gap 3 (6-14) Blood Urea Nitrogen 23 mg/dL (7-20) Creatinine 0.6 mg/dL (0.6-1.0) Estimated GFR (Cockcroft-Gault) 117.4 BUN/Creatinine Ratio 38 (6-20) Glucose Level 178 mg/dL (70-99) Calcium Level 8.5 mg/dL (8.5-10.1) Total Bilirubin 0.7 mg/dL (0.2-1.0) Aspartate Amino Transf (AST/SGOT) 172 U/L (15-37) Alanine Aminotransferase (ALT/SGPT) 477 U/L (14-59) Alkaline Phosphatase 92 U/L (46-116) Total Protein 6.5 g/dL (6.4-8.2) Albumin 2.3 g/dL (3.4-5.0) Albumin/Globulin Ratio 0.5 (1.0-1.7) Mycoplasma Serology (LAB) Negative (NEGATIVE) Test 08/03/18 08:00 08/03/18 11:36 08/03/18 13:45 08/03/18 16:29 O2 Saturation 93 % (92-99) Arterial Blood pH 7.39 (7.35-7.45) Arterial Blood pCO2 at Patient Temp 52 mmHg (35-46) Arterial Blood pO2 at Patient Temp 72 mmHg (85-108) Arterial Blood HCO3 31 mmol/L (21-28) Arterial Blood Base Excess 5 mmol/L (-3-3) FiO2 60 Glucose (Fingerstick) 156 mg/dL (70-99) 148 mg/dL (70-99) Influenza Type A Antigen Negative (NEGATIVE) Influenza Type B Antigen Negative (NEGATIVE) Test 08/04/18 00:12 08/04/18 05:14 08/04/18 05:32 08/04/18 07:40 Glucose (Fingerstick) 148 mg/dL (70-99) 185 mg/dL (70-99) White Blood Count 12.8 x10^3/uL (4.0-11.0) Red Blood Count 3.99 x10^6/uL (3.50-5.40) Hemoglobin 10.8 g/dL (12.0-15.5) Hematocrit 32.7 % (36.0-47.0) Mean Corpuscular Volume 82 fL (79-100) Mean Corpuscular Hemoglobin 27 pg (25-35) Mean Corpuscular Hemoglobin Concent 33 g/dL (31-37) Red Cell Distribution Width 13.9 % (11.5-14.5) Platelet Count 297 x10^3/uL (140-400) Neutrophils (%) (Auto) 77 % (31-73) Lymphocytes (%) (Auto) 17 % (24-48) Monocytes (%) (Auto) 6 % (0-9) Eosinophils (%) (Auto) 1 % (0-3) Basophils (%) (Auto) 0 % (0-3) Neutrophils # (Auto) 9.8 x10^3uL (1.8-7.7) Lymphocytes # (Auto) 2.1 x10^3/uL (1.0-4.8) Monocytes # (Auto) 0.7 x10^3/uL (0.0-1.1) Eosinophils # (Auto) 0.1 x10^3/uL (0.0-0.7) Basophils # (Auto) 0.0 x10^3/uL (0.0-0.2) Sodium Level 140 mmol/L (136-145) Potassium Level 4.1 mmol/L (3.5-5.1) Chloride Level 104 mmol/L (98-107) Carbon Dioxide Level 32 mmol/L (21-32) Anion Gap 4 (6-14) Blood Urea Nitrogen 19 mg/dL (7-20) Creatinine 0.6 mg/dL (0.6-1.0) Estimated GFR (Cockcroft-Gault) 117.4 BUN/Creatinine Ratio 32 (6-20) Glucose Level 196 mg/dL (70-99) Calcium Level 8.4 mg/dL (8.5-10.1) Total Bilirubin 0.6 mg/dL (0.2-1.0) Aspartate Amino Transf (AST/SGOT) 167 U/L (15-37) Alanine Aminotransferase (ALT/SGPT) 592 U/L (14-59) Alkaline Phosphatase 87 U/L (46-116) Total Protein 6.3 g/dL (6.4-8.2) Albumin 2.4 g/dL (3.4-5.0) Albumin/Globulin Ratio 0.6 (1.0-1.7) Triglycerides Level 308 mg/dL (0-150) O2 Saturation 96 % (92-99) Arterial Blood pH 7.46 (7.35-7.45) Arterial Blood pCO2 at Patient Temp 43 mmHg (35-46) Arterial Blood pO2 at Patient Temp 83 mmHg (85-108) Arterial Blood HCO3 30 mmol/L (21-28) Arterial Blood Base Excess 6 mmol/L (-3-3) FiO2 60 Laboratory Tests Test 08/03/18 13:45 08/03/18 16:29 08/04/18 00:12 08/04/18 05:14 Influenza Type A Antigen Negative (NEGATIVE) Influenza Type B Antigen Negative (NEGATIVE) Glucose (Fingerstick) 148 mg/dL (70-99) 148 mg/dL (70-99) White Blood Count 12.8 x10^3/uL (4.0-11.0) Red Blood Count 3.99 x10^6/uL (3.50-5.40) Hemoglobin 10.8 g/dL (12.0-15.5) Hematocrit 32.7 % (36.0-47.0) Mean Corpuscular Volume 82 fL (79-100) Mean Corpuscular Hemoglobin 27 pg (25-35) Mean Corpuscular Hemoglobin Concent 33 g/dL (31-37) Red Cell Distribution Width 13.9 % (11.5-14.5) Platelet Count 297 x10^3/uL (140-400) Neutrophils (%) (Auto) 77 % (31-73) Lymphocytes (%) (Auto) 17 % (24-48) Monocytes (%) (Auto) 6 % (0-9) Eosinophils (%) (Auto) 1 % (0-3) Basophils (%) (Auto) 0 % (0-3) Neutrophils # (Auto) 9.8 x10^3uL (1.8-7.7) Lymphocytes # (Auto) 2.1 x10^3/uL (1.0-4.8) Monocytes # (Auto) 0.7 x10^3/uL (0.0-1.1) Eosinophils # (Auto) 0.1 x10^3/uL (0.0-0.7) Basophils # (Auto) 0.0 x10^3/uL (0.0-0.2) Sodium Level 140 mmol/L (136-145) Potassium Level 4.1 mmol/L (3.5-5.1) Chloride Level 104 mmol/L (98-107) Carbon Dioxide Level 32 mmol/L (21-32) Anion Gap 4 (6-14) Blood Urea Nitrogen 19 mg/dL (7-20) Creatinine 0.6 mg/dL (0.6-1.0) Estimated GFR (Cockcroft-Gault) 117.4 BUN/Creatinine Ratio 32 (6-20) Glucose Level 196 mg/dL (70-99) Calcium Level 8.4 mg/dL (8.5-10.1) Total Bilirubin 0.6 mg/dL (0.2-1.0) Aspartate Amino Transf (AST/SGOT) 167 U/L (15-37) Alanine Aminotransferase (ALT/SGPT) 592 U/L (14-59) Alkaline Phosphatase 87 U/L (46-116) Total Protein 6.3 g/dL (6.4-8.2) Albumin 2.4 g/dL (3.4-5.0) Albumin/Globulin Ratio 0.6 (1.0-1.7) Triglycerides Level 308 mg/dL (0-150) Test 08/04/18 05:32 08/04/18 07:40 Glucose (Fingerstick) 185 mg/dL (70-99) O2 Saturation 96 % (92-99) Arterial Blood pH 7.46 (7.35-7.45) Arterial Blood pCO2 at Patient Temp 43 mmHg (35-46) Arterial Blood pO2 at Patient Temp 83 mmHg (85-108) Arterial Blood HCO3 30 mmol/L (21-28) Arterial Blood Base Excess 6 mmol/L (-3-3) FiO2 60 Microbiology 07/28/18 Blood Culture - Final, Complete NO GROWTH AFTER 5 DAYS Medications Current Medications Prednisone (Prednisone) 50 mg 1X ONCE PO Last administered on 07/28/18at 06:47; Start 07/28/18 at 07:00; Stop 07/28/18 at 07:01; Status DC Albuterol/ Ipratropium (Duoneb) 3 ml 1X ONCE NEB Last administered on at 06:37; Start 07/28/18 at 07:00; Stop 07/28/18 at 07:01; Status DC Sodium Chloride 1,000 ml @ 1,000 mls/hr 1X ONCE IV Last administered on at 07:03; Start 07/28/18 at 07:00; Stop 07/28/18 at 07:59; Status DC Albuterol Sulfate (Ventolin Neb Soln) 10 mg 1X ONCE CONT NEB Last administered on 07/28/18at 07:25; Start 07/28/18 at 07:00; Stop 07/28/18 at 07:02; Status DC Magnesium Sulfate 50 ml @ 25 mls/hr 1X ONCE IV Last administered on 07/28/18at 07:41; Start 07/28/18 at 07:15; Stop 07/28/18 at 09:14; Status DC Ceftriaxone Sodium 50 ml @ 100 mls/hr 1X ONCE IV Last administered on at 08:52; Start 07/28/18 at 08:15; Stop 07/28/18 at 08:44; Status DC Azithromycin 250 ml @ 250 mls/hr 1X ONCE IV Last administered on 07/28/18at 09: 20; Start 07/28/18 at 08:15; Stop 07/28/18 at 09:14; Status DC Acetaminophen/ Hydrocodone Bitart (Lortab 5/325) 2 tab 1X ONCE PO Last administered on 07/28/18at 08:49; Start 07/28/18 at 08:45; Stop 07/28/18 at 08:46; Status DC Ondansetron HCl (Zofran) 4 mg PRN Q8HRS PRN IV NAUSEA/VOMITING Last administered on 07/28/18at 22:40; Start 07/28/18 at 08:45; Stop 07/29/18 at 08:44; Status DC Acetaminophen (Tylenol) 650 mg PRN Q4HRS PRN PO FEVER Last administered on at 22:40; Start 07/28/18 at 08:45; Stop 07/29/18 at 08:44; Status DC Albuterol/ Ipratropium (Duoneb) 3 ml RTQID NEB Last administered on 07/29/18at 07 :29; Start 07/28/18 at 12:00; Stop 07/29/18 at 10:30; Status DC Acetaminophen/ Hydrocodone Bitart (Lortab 5/325) 2 tab Q6H PRN PO MODERATE- SEVERE PAIN Last administered on 07/29/18at 23:09; Start 07/28/18 at 08:45 Prednisone (Prednisone) 60 mg DAILY PO ; Start 07/29/18 at 09:00; Stop 07/29/18 at 09:00; Status DC Budesonide (Pulmicort) 0.5 mg RTBID NEB Last administered on 08/04/18at 08:10; Start 07/28/18 at 20:00 Budesonide (Pulmicort) 0.5 mg 1X ONCE NEB Last administered on 07/28/18at 11:06 ; Start 07/28/18 at 09:30; Stop 07/28/18 at 09:31; Status DC Albuterol Sulfate (Ventolin Neb Soln) 2.5 mg PRN Q4HRS PRN NEB SHORTNESS OF BREATH; Start 07/28/18 at 09:30 Azithromycin (Zithromax) 250 mg DAILY PO Last administered on 08/01/18at 08:54; Start 07/28/18 at 10:00; Stop 08/01/18 at 09:01; Status DC Alprazolam (Xanax) 0.25 mg PRN Q6HRS PRN PO ANXIETY / AGITATION Last administered on 07/29/18at 23:13; Start 07/28/18 at 12:45 Ibuprofen (Motrin) 800 mg PRN Q8HRS PRN PO PAIN MILD/INFLAMMATION; Start at 12:45 Benzonatate (Tessalon Perle) 100 mg PRN TID PRN PO COUGH 2ND CHOICE; Start 07/28 at 14:00 Citalopram Hydrobromide (CeleXA) 40 mg DAILY PO Last administered on 08/04/18at 08:50; Start 07/28/18 at 13:00 Metformin HCl (Glucophage) 500 mg BIDWMEALS PO Last administered on 07/29/18at 10 :07; Start 07/28/18 at 17:00; Stop 07/31/18 at 08:58; Status DC Promethazine HCl/ Codeine (Phenergan With Codeine) 5 ml PRN Q6HRS PRN PO COUGH 1ST CHOICE Last administered on 07/29/18 16:25; Start 07/28/18 at 15:30 Guaifenesin (MUCINEX ER with DM) 1 tab BID PO Last administered on 07/30/18at 20: 57; Start 07/28/18 at 21:00; Stop 07/31/18 at 09:47; Status DC Lactobacillus Rhamnosus (Culturelle) 1 cap BID PO Last administered on at 21:44; Start 07/28/18 at 21:00; Stop 07/30/18 at 09:48; Status DC Prednisone (Prednisone) 30 mg DAILY PO Last administered on 07/29/18 10:06; Start 07/29/18 at 09:00; Stop 07/31/18 at 08:58; Status DC Ceftriaxone Sodium 1 gm/ Dextrose 50 ml @ 100 mls/hr Q24H IV ; Start 07/29/18 at 09:00; Status UNV Ceftriaxone Sodium (Rocephin) 1 gm Q24H IVP Last administered on 07/29/18at 10:06 ; Start 07/29/18 at 09:00; Stop 07/30/18 at 10:07; Status DC Albuterol/ Ipratropium (Duoneb) 3 ml Q4HRS NEB Last administered on 08/02/18at 08 :40; Start 07/29/18 at 12:00; Stop 08/02/18 at 09:31; Status DC Budesonide (Pulmicort) 0.5 mg RTBID NEB ; Start 07/29/18 at 20:00; Status UNV Famotidine (Pepcid) 20 mg QHS PO Last administered on 07/29/18at 21:44; Start 07/29/18 at 21:00; Stop 07/30/18 at 10:10; Status DC Enoxaparin Sodium (Lovenox 40mg Syringe) 40 mg Q12H SQ Last administered on 09/11at 00:10; Start 07/29/18 at 12:30 Acetaminophen (Tylenol) 650 mg PRN Q6HRS PRN PO FEVER; Start 07/29/18 at 11:45 Ondansetron HCl (Zofran) 4 mg PRN Q6HRS PRN IV NAUSEA/VOMITING Last administered on 07/29/18at 15:23; Start 07/29/18 at 11:45 Morphine Sulfate (Morphine Sulfate) 2 mg PRN Q2HR PRN IV MODERATE TO SEVERE PAIN; Start 07/29/18 at 11:45 Tramadol HCl (Ultram) 50 mg PRN Q6HRS PRN PO MODERATE PAIN; Start 07/29/18 at 11 :45 Docusate Sodium (Colace) 100 mg PRN DAILY PRN PO CONSTIPATION; Start 07/29/18 at 11:45 Haloperidol Lactate (Haldol Inj) 2 mg PRN Q2HR PRN IVP AGITATION 2ND CHOICE Last administered on 08/01/18at 15:48; Start 07/30/18 at 01:30 Lorazepam (Ativan) 0.25 mg PRN Q1HR PRN IV ANXIETY/AGITATION 1ST CHOICE Last administered on 08/04/18at 05:14; Start 07/30/18 at 01:30 Propofol 100 ml @ As Directed STK-MED ONCE IV ; Start 07/30/18 at 04:12; Stop at 04:13; Status DC Etomidate (Amidate) 20 mg STK-MED ONCE IV ; Start 07/30/18 at 04:18; Stop at 04:19; Status DC Propofol 100 ml @ 0 mls/hr CONT PRN IV PER PROTOCOL Last administered on at 10:30; Start 07/30/18 at 04:30 Chlorhexidine Gluconate (Peridex) 15 ml BID MM Last administered on 08/04/18at 08:51; Start 07/30/18 at 09:00 Midazolam HCl 100 ml @ 0 mls/hr CONT PRN IV PER PROTOCOL Last administered on at 19:14; Start 07/30/18 at 04:30 Piperacillin Sod/ Tazobactam Sod (Zosyn Per Pharmacy) 1 each PRN DAILY PRN MC SEE COMMENTS; Start 07/30/18 at 10:00 Vancomycin HCl (Vanco Per Pharmacy) 1 each PRN DAILY PRN MC SEE COMMENTS Last administered on 08/03/18at 08:31; Start 07/30/18 at 10:00; Stop 08/03/18 at 12:30; Status DC Methylprednisolone Sodium Succinate (SOLU-Medrol 125MG VIAL) 60 mg Q8HRS IV Last administered on 08/03/18at 05:49; Start 07/30/18 at 14:00; Stop 08/03/18 at 06: 32; Status DC Pantoprazole Sodium (PROTONIX VIAL for IV PUSH) 40 mg DAILYAC IVP Last administered on 08/04/18at 08:50; Start 07/30/18 at 10:30 Piperacillin Sod/ Tazobactam Sod 3.375 gm/Sodium Chloride 50 ml @ 100 mls/hr Q6HRS IV Last administered on 08/04/18at 05:35; Start 07/30/18 at 12:00 Vancomycin HCl 2 gm/Sodium Chloride 500 ml @ 250 mls/hr 1X ONCE IV Last administered on 07/30/18at 10:31; Start 07/30/18 at 10:30; Stop 07/30/18 at 12:29; Status DC Vancomycin HCl 1.5 gm/Sodium Chloride 500 ml @ 250 mls/hr Q8H IV Last administered on 07/31/18at 14:10; Start 07/30/18 at 18:30; Stop 07/31/18 at 17:00; Status DC Vancomycin HCl (Vancomycin Trough Level) 1 each 1X ONCE MC Last administered on 07/31/18at 13:30; Start 07/31/18 at 13:30; Stop 07/31/18 at 13:31; Status DC Insulin Human Lispro (HumaLOG) 0-7 UNITS TIDWMEALS SQ ; Start 07/31/18 at 08:00; Stop 07/31/18 at 09:04; Status DC Dextrose (Dextrose 50%-Water Syringe) 12.5 gm PRN Q15MIN PRN IV SEE COMMENTS; Start 07/30/18 at 17:45 Insulin Human Lispro (HumaLOG) 0-7 UNITS Q6HRS SQ Last administered on at 05:36; Start 07/31/18 at 12:00 Vancomycin HCl 1.75 gm/Sodium Chloride 500 ml @ 250 mls/hr Q8H IV Last administered on 08/01/18at 13:48; Start 07/31/18 at 22:00; Stop 08/01/18 at 22:01; Status DC Vancomycin HCl (Vancomycin Trough Level) 1 each 1X ONCE MC Last administered on 08/01/18at 21:01; Start 08/01/18 at 21:30; Stop 08/01/18 at 21:31; Status DC Erythromycin Ethylsuccinate (E.e.s. 200) 200 mg 1X ONCE PEG Last administered on 08/01/18at 12:19; Start 08/01/18 at 13:00; Stop 08/01/18 at 13:01; Status DC Vancomycin HCl 2 gm/Sodium Chloride 500 ml @ 250 mls/hr Q8H IV Last administered on 08/02/18at 22:56; Start 08/01/18 at 22:00; Stop 08/02/18 at 22:59; Status DC Vancomycin HCl (Vancomycin Trough Level) 1 each 1X ONCE MC Last administered on 08/02/18at 21:30; Start 08/02/18 at 21:30; Stop 08/02/18 at 21:31; Status DC Fentanyl Citrate 30 ml @ 0 mls/hr CONT PRN IV PER PROTOCOL Last administered on 08/04/18at 10:33; Start 08/02/18 at 07:00 Enalaprilat (Vasotec Inj) 1.25 mg PRN Q6HRS PRN IVP HYPERTENSION, SEE COMMENTS ; Start 08/02/18 at 09:15 Amlodipine Besylate (Norvasc) 2.5 mg DAILY PO Last administered on 08/04/18at 08 :51; Start 08/02/18 at 10:00 Albuterol/ Ipratropium (Duoneb) 3 ml RTQID NEB Last administered on 08/04/18at 08:10; Start 08/02/18 at 12:00 Vancomycin HCl 1.75 gm/Sodium Chloride 500 ml @ 250 mls/hr Q6H IV Last administered on 08/03/18at 05:53; Start 08/03/18 at 05:00; Stop 08/03/18 at 08:23; Status DC Vancomycin HCl (Vancomycin Trough Level) 1 each 1X ONCE MC ; Start 08/03/18 at 22:30; Stop 08/03/18 at 22:31; Status Cancel Methylprednisolone Sodium Succinate (SOLU-Medrol 125MG VIAL) 40 mg Q8HRS IV Last administered on 08/04/18at 05:35; Start 08/03/18 at 14:00 Vancomycin HCl 2 gm/Sodium Chloride 500 ml @ 250 mls/hr Q8H IV ; Start 08/03/18 at 14:00; Stop 08/03/18 at 14:00; Status DC Azithromycin 500 mg/Sodium Chloride 250 ml @ 250 mls/hr Q24H IV Last administered on 08/03/18at 13:17; Start 08/03/18 at 13:00 Active Scripts Active Motrin Ib (Ibuprofen) 200 Mg Tablet 800 Mg PO Q8H PRN Tessalon Perle (Benzonatate) 100 Mg Capsule 100 Mg PO TID PRN Prednisone 20 Mg Tablet 40 Mg PO DAILY START MEDICATIONS ON 08/07/2016 Medrol (Methylprednisolone) 4 Mg Tab.ds.pk 1 Pkg PO UD Levaquin (Levofloxacin) 750 Mg Tablet 750 Mg PO DAILY06 Advair 250-50 Diskus (Fluticasone/Salmeterol) 1 Puff Puff 1 Puff INH BID Reported Topiramate 25 Mg Tablet 1 Tab PO HS Phentermine Hcl 37.5 Mg Capsule 1 Cap PO [id number] Metformin Hcl 500 Mg Tablet 500 Mg PO BIDWMEALS Escitalopram Oxalate 20 Mg Tablet 1 Tab PO DAILY Xanax (Alprazolam) 0.25 Mg Tablet 0.25 Mg PO PRN Q6HRS PRN Vitals/I & O Vital Sign - Last 24 Hours 08/03/18 08/03/18 08/03/18 08/03/18 12:00 12:00 13:00 14:00 Pulse 62 61 62 Resp 18 18 20 B/P (MAP) 136/76 (96) 147/74 (98) 137/80 (99) Pulse Ox 96 96 96 O2 Delivery Mechanical Ventilator Ventilator Ventilator Ventilator 08/03/18 08/03/18 08/03/18 08/03/18 15:00 16:00 16:00 16:19 Pulse 65 49 Resp 20 18 B/P (MAP) 134/74 (94) 145/73 (97) Pulse Ox 96 96 96 O2 Delivery Ventilator Mechanical Ventilator Ventilator Ventilator 08/03/18 08/03/18 08/03/18 08/03/18 16:45 17:00 17:12 17:15 Temp 99.2 99.2 Pulse 62 Resp 20 22 B/P (MAP) 145/74 (97) Pulse Ox 96 96 92 O2 Delivery Ventilator Ventilator Ventilator O2 Flow Rate 15.0 08/03/18 08/03/18 08/03/18 08/03/18 18:00 19:00 19:30 19:42 Temp 98.8 98.8 Pulse 57 56 Resp 18 18 B/P (MAP) 138/67 (90) 137/71 (93) Pulse Ox 93 96 95 O2 Delivery Ventilator Ventilator Mechanical Ventilator Ventilator 08/03/18 08/03/18 08/03/18 08/03/18 19:43 20:00 21:00 22:00 Pulse 57 59 89 Resp 18 18 18 B/P (MAP) 137/66 (89) 131/69 (89) 152/77 (102) Pulse Ox 95 96 96 94 O2 Delivery Ventilator Ventilator Ventilator Ventilator 08/03/18 08/03/18 08/03/18 08/03/18 22:58 23:00 23:28 23:52 Temp 98.8 98.8 Pulse 64 Resp 18 18 B/P (MAP) 144/73 (96) Pulse Ox 96 96 96 O2 Delivery Ventilator Ventilator Mechanical Ventilator O2 Flow Rate 15.0 15.0 08/03/18 08/04/18 08/04/18 08/04/18 23:53 00:00 01:00 02:00 Pulse 48 66 66 Resp 18 18 18 B/P (MAP) 147/80 (102) 145/69 (94) 144/78 (100) Pulse Ox 95 95 94 94 O2 Delivery Ventilator Ventilator Ventilator Ventilator 08/04/18 08/04/18 08/04/18 08/04/18 02:22 03:00 03:35 04:00 Temp 98.8 98.8 Pulse 50 50 Resp 18 18 B/P (MAP) 142/72 (95) 142/72 (95) Pulse Ox 94 96 96 O2 Delivery Ventilator Ventilator Mechanical Ventilator Ventilator 08/04/18 08/04/18 08/04/18 08/04/18 04:23 04:34 05:00 05:00 Pulse 53 74 Resp 18 18 B/P (MAP) 140/73 (95) 165/90 (115) Pulse Ox 96 96 96 96 O2 Delivery Ventilator Ventilator Ventilator O2 Flow Rate 15.0 08/04/18 08/04/18 08/04/18 08/04/18 05:35 06:00 07:00 08:00 Temp 98.9 98.9 Pulse 66 53 55 Resp 18 18 18 B/P (MAP) 148/71 (96) 133/71 (91) 155/68 (97) Pulse Ox 96 95 95 95 O2 Delivery Ventilator Ventilator Ventilator Ventilator 08/04/18 08/04/18 08/04/18 08/04/18 08:00 08:13 08:51 09:00 Pulse 56 55 Resp 18 B/P (MAP) 155/83 142/68 (92) Pulse Ox 96 95 O2 Delivery Mechanical Ventilator Ventilator Ventilator 08/04/18 08/04/18 08/04/18 08/04/18 09:23 10:00 10:33 11:00 Pulse 51 53 Resp 18 18 18 B/P (MAP) 134/75 (94) 127/66 (86) Pulse Ox 96 95 94 O2 Delivery Ventilator Ventilator Ventilator Ventilator 08/04/18 11:47 O2 Delivery Ventilator Intake and Output 08/03/18 08/03/18 08/04/18 15:00 23:00 07:00 Intake Total 817 ml 720 ml 1320 ml Output Total 715 ml 660 ml 455 ml Balance 102 ml 60 ml 865 ml JAIRON DUENAS K III DO Aug 04, 2018 12:00
[2018-08-04] MEDS: AZITHROMYCIN 500 MG in IV NORMAL SALINE 250ML 250 ML IV SCH (12:55)
[2018-08-05] VITALS (24 sets, daily range): BP systolic 106–147; BP diastolic 59–85
[2018-08-05] MEDS: ENOXAPARIN 40 MG/0.4 ML SYRINGE. SQ SCH ×2 (00:53→12:26)
[2018-08-05] MEDS: PROPOFOL 100 ML IV PRN ×9 (01:17→23:51)
[2018-08-05 05:17] LABS: BASO % 0 % (0-3); EOS # 0.2 x10^3/uL (0.0-0.7); EOS % 1 % (0-3); HEMOGLOBIN 10.7 g/dL (12.0-15.5); LYMPH # 2.1 x10^3/uL (1.0-4.8); LYMPH % 17 % (24-48); MEAN CORPUSCULAR HEMOGLOBIN 27 pg (25-35); MEAN CORPUSCULAR HGB CONC 34 g/dL (31-37); MEAN CORPUSCULAR VOLUME 82 fL (79-100); MONO # 0.7 x10^3/uL (0.0-1.1); MONO % 6 % (0-9); NEUT # 9.1 x10^3uL (1.8-7.7); NEUT % 76 % (31-73); PLATELET COUNT 294 x10^3/uL (140-400); RED BLOOD COUNT 3.91 x10^6/uL (3.50-5.40); RED CELL DISTRIBUTION WIDTH 13.8 % (11.5-14.5)
[2018-08-05 05:35] LABS: CALCIUM 8.4 mg/dL (8.5-10.1); CREATININE 0.6 mg/dL (0.6-1.0); GFR 117.4; POTASSIUM 4.1 mmol/L (3.5-5.1)
[2018-08-05] MEDS: PIPERACILLIN/TAZOBACTAM 3.375 GM in IV NORMAL SALINE 50ML 50 ML IV SCH ×4 (06:06→23:31)
[2018-08-05] MEDS: methylPREDNISolone SOD SUCC PF 125 MG/2 ML VIAL. IV SCH ×3 (06:07→21:37)
[2018-08-05] MEDS: INSULIN LISPRO 300 UNITS/3 ML INSULN.PEN. SQ SCH ×4 (06:08→23:31)
[2018-08-05 07:42] LABS: BASE EXCESS ABG 4 mmol/L (-3-3); HCO3 ABG 28 mmol/L (21-28); PCO2 ABG 38 mmHg (35-46); PO2 ABG 85 mmHg (85-108); SAT O2 ABG 96 % (92-99)
[2018-08-05] MEDS: BUDESONIDE 0.5 MG/2 ML NEBU. NEB SCH ×2 (07:42→19:34)
[2018-08-05] MEDS: IPRATRPIUM/ALBUTEROL 0.5/2.5MG 3 ML NEBU. NEB SCH ×4 (07:42→19:34)
--- NOTE | 2018-08-05 07:48 | PDOC ---
Infectious Disease Note Subjective Subjective pt is intubated on vent ROS ROS no n/v/d/fever Vital Sign Vital Signs Vital Signs Date Time Temp Pulse Resp B/P (MAP) Pulse Ox O2 Delivery O2 Flow Rate FiO2 08/05/18 07:20 96 Ventilator 08/05/18 07:00 52 18 129/74 (92) 08/05/18 04:00 98.6 98.6 Physical Exam PHYSICAL EXAM CONSTITUTIONAL: She is intubated. She is lightly sedated. HEENT: Pupils are equal and reactive. NECK: Supple. She has a right IJ without signs of any complications. No JVD. LUNGS: Decreased at bases. HEART: S1, S2, mild tachycardic. ABDOMEN: Obese, soft, nontender, nondistended, positive bowel sounds. King without signs of complications. EXTREMITIES: No clubbing, cyanosis or gross edema. SKIN: Without signs of rash. NEUROLOGIC: She was somewhat alert, moving around a little bit, but she is sedated Labs Lab Laboratory Tests Test 08/04/18 11:54 08/04/18 17:51 08/04/18 23:44 08/05/18 04:40 Glucose (Fingerstick) 151 mg/dL (70-99) 133 mg/dL (70-99) 133 mg/dL (70-99) White Blood Count 12.0 x10^3/uL (4.0-11.0) Red Blood Count 3.91 x10^6/uL (3.50-5.40) Hemoglobin 10.7 g/dL (12.0-15.5) Hematocrit 32.0 % (36.0-47.0) Mean Corpuscular Volume 82 fL (79-100) Mean Corpuscular Hemoglobin 27 pg (25-35) Mean Corpuscular Hemoglobin Concent 34 g/dL (31-37) Red Cell Distribution Width 13.8 % (11.5-14.5) Platelet Count 294 x10^3/uL (140-400) Neutrophils (%) (Auto) 76 % (31-73) Lymphocytes (%) (Auto) 17 % (24-48) Monocytes (%) (Auto) 6 % (0-9) Eosinophils (%) (Auto) 1 % (0-3) Basophils (%) (Auto) 0 % (0-3) Neutrophils # (Auto) 9.1 x10^3uL (1.8-7.7) Lymphocytes # (Auto) 2.1 x10^3/uL (1.0-4.8) Monocytes # (Auto) 0.7 x10^3/uL (0.0-1.1) Eosinophils # (Auto) 0.2 x10^3/uL (0.0-0.7) Basophils # (Auto) 0.0 x10^3/uL (0.0-0.2) Sodium Level 139 mmol/L (136-145) Potassium Level 4.1 mmol/L (3.5-5.1) Chloride Level 104 mmol/L (98-107) Carbon Dioxide Level 31 mmol/L (21-32) Anion Gap 4 (6-14) Blood Urea Nitrogen 17 mg/dL (7-20) Creatinine 0.6 mg/dL (0.6-1.0) Estimated GFR (Cockcroft-Gault) 117.4 Glucose Level 187 mg/dL (70-99) Calcium Level 8.4 mg/dL (8.5-10.1) Test 08/05/18 06:05 Glucose (Fingerstick) 170 mg/dL (70-99) Micro Microbiology 07/28/18 Blood Culture - Final, Complete NO GROWTH AFTER 5 DAYS Objective Assessment 1. Leukocytosis, 2. Acute respiratory failure, intubated. 3. Community-acquired pneumonia. 4. Transaminitis. 5. Morbid obesity. 6. h/o Asthma Plan Plan of Care Cont Zosyn and Azithromycin influenza neg Check strep antigen/Legionella/Mycoplasma UA C and S Recommend Resp viral panel - will try to order as Miscellaneous F/u labs and cults PAULO CHIN MD Aug 05, 2018 07:48
[2018-08-05] MEDS: amLODIPine BESYLATE 2.5 MG TABLET PO SCH (08:01)
[2018-08-05] MEDS: CHLORHEXIDINE 0.12% 15 ML MOUTHWASH. MM SCH ×2 (08:01→21:01)
[2018-08-05] MEDS: PANTOPRAZOLE IV PUSH 40 MG VIAL. IVP SCH (08:02)
[2018-08-05] MEDS: CITALOPRAM 20 MG TABLET. PO SCH (08:03)
--- NOTE | 2018-08-05 08:05 | RAD ---
Portable chest, 08/05/2018: HISTORY: Acute respiratory distress, ARDS Comparison is made to yesterday's study. The ET tube tip lies several centimeters above the tom. An NG tube extends into the stomach. A right jugular central venous catheter extends into the right atrium. The heart is mildly enlarged and unchanged. There are ongoing bibasilar pulmonary infiltrates, left greater than right. There may be pleural fluid inferiorly in the left basilar opacity. No new abnormality is seen. IMPRESSION: 1. Stable tube positions. 2. Unchanged bibasilar pulmonary infiltrates. Electronically signed by: Genaro Moreno MD (08/05/2018 8:01 AM) [facility]
[2018-08-05 09:32] LABS: FIO2 ABG 50
--- NOTE | 2018-08-05 10:51 | PDOC ---
PULMONARY PROGRESS NOTES Subjective patient intubated 07/30 after progressive hypoxia and failed BIPAP 50% FIO2/ PEEP DOWN TO 7 Vitals Vital Signs Date Time Temp Pulse Resp B/P (MAP) Pulse Ox O2 Delivery O2 Flow Rate FiO2 08/05/18 10:21 54 18 116/66 (83) 96 Ventilator 08/05/18 08:00 98.8 98.8 HEENT: Other (nc at perrl. nose throat clear.... neck, no lad, no thyromegaly) Lungs: Crackles Cardiovascular: S1, S2 Abdomen: Soft, Non-tender, Other (no mass) Extremities: Other (trace edema) Skin: Warm Labs Laboratory Tests Test 08/03/18 11:36 08/03/18 13:45 08/03/18 16:29 08/04/18 00:12 Glucose (Fingerstick) 156 mg/dL (70-99) 148 mg/dL (70-99) 148 mg/dL (70-99) Influenza Type A Antigen Negative (NEGATIVE) Influenza Type B Antigen Negative (NEGATIVE) Test 08/04/18 05:14 08/04/18 05:32 08/04/18 07:40 08/04/18 11:54 White Blood Count 12.8 x10^3/uL (4.0-11.0) Red Blood Count 3.99 x10^6/uL (3.50-5.40) Hemoglobin 10.8 g/dL (12.0-15.5) Hematocrit 32.7 % (36.0-47.0) Mean Corpuscular Volume 82 fL (79-100) Mean Corpuscular Hemoglobin 27 pg (25-35) Mean Corpuscular Hemoglobin Concent 33 g/dL (31-37) Red Cell Distribution Width 13.9 % (11.5-14.5) Platelet Count 297 x10^3/uL (140-400) Neutrophils (%) (Auto) 77 % (31-73) Lymphocytes (%) (Auto) 17 % (24-48) Monocytes (%) (Auto) 6 % (0-9) Eosinophils (%) (Auto) 1 % (0-3) Basophils (%) (Auto) 0 % (0-3) Neutrophils # (Auto) 9.8 x10^3uL (1.8-7.7) Lymphocytes # (Auto) 2.1 x10^3/uL (1.0-4.8) Monocytes # (Auto) 0.7 x10^3/uL (0.0-1.1) Eosinophils # (Auto) 0.1 x10^3/uL (0.0-0.7) Basophils # (Auto) 0.0 x10^3/uL (0.0-0.2) Sodium Level 140 mmol/L (136-145) Potassium Level 4.1 mmol/L (3.5-5.1) Chloride Level 104 mmol/L (98-107) Carbon Dioxide Level 32 mmol/L (21-32) Anion Gap 4 (6-14) Blood Urea Nitrogen 19 mg/dL (7-20) Creatinine 0.6 mg/dL (0.6-1.0) Estimated GFR (Cockcroft-Gault) 117.4 BUN/Creatinine Ratio 32 (6-20) Glucose Level 196 mg/dL (70-99) Calcium Level 8.4 mg/dL (8.5-10.1) Total Bilirubin 0.6 mg/dL (0.2-1.0) Aspartate Amino Transf (AST/SGOT) 167 U/L (15-37) Alanine Aminotransferase (ALT/SGPT) 592 U/L (14-59) Alkaline Phosphatase 87 U/L (46-116) Total Protein 6.3 g/dL (6.4-8.2) Albumin 2.4 g/dL (3.4-5.0) Albumin/Globulin Ratio 0.6 (1.0-1.7) Triglycerides Level 308 mg/dL (0-150) Glucose (Fingerstick) 185 mg/dL (70-99) 151 mg/dL (70-99) O2 Saturation 96 % (92-99) Arterial Blood pH 7.46 (7.35-7.45) Arterial Blood pCO2 at Patient Temp 43 mmHg (35-46) Arterial Blood pO2 at Patient Temp 83 mmHg (85-108) Arterial Blood HCO3 30 mmol/L (21-28) Arterial Blood Base Excess 6 mmol/L (-3-3) FiO2 60 Test 08/04/18 17:51 08/04/18 23:44 08/05/18 04:40 08/05/18 06:05 Glucose (Fingerstick) 133 mg/dL (70-99) 133 mg/dL (70-99) 170 mg/dL (70-99) White Blood Count 12.0 x10^3/uL (4.0-11.0) Red Blood Count 3.91 x10^6/uL (3.50-5.40) Hemoglobin 10.7 g/dL (12.0-15.5) Hematocrit 32.0 % (36.0-47.0) Mean Corpuscular Volume 82 fL (79-100) Mean Corpuscular Hemoglobin 27 pg (25-35) Mean Corpuscular Hemoglobin Concent 34 g/dL (31-37) Red Cell Distribution Width 13.8 % (11.5-14.5) Platelet Count 294 x10^3/uL (140-400) Neutrophils (%) (Auto) 76 % (31-73) Lymphocytes (%) (Auto) 17 % (24-48) Monocytes (%) (Auto) 6 % (0-9) Eosinophils (%) (Auto) 1 % (0-3) Basophils (%) (Auto) 0 % (0-3) Neutrophils # (Auto) 9.1 x10^3uL (1.8-7.7) Lymphocytes # (Auto) 2.1 x10^3/uL (1.0-4.8) Monocytes # (Auto) 0.7 x10^3/uL (0.0-1.1) Eosinophils # (Auto) 0.2 x10^3/uL (0.0-0.7) Basophils # (Auto) 0.0 x10^3/uL (0.0-0.2) Sodium Level 139 mmol/L (136-145) Potassium Level 4.1 mmol/L (3.5-5.1) Chloride Level 104 mmol/L (98-107) Carbon Dioxide Level 31 mmol/L (21-32) Anion Gap 4 (6-14) Blood Urea Nitrogen 17 mg/dL (7-20) Creatinine 0.6 mg/dL (0.6-1.0) Estimated GFR (Cockcroft-Gault) 117.4 Glucose Level 187 mg/dL (70-99) Calcium Level 8.4 mg/dL (8.5-10.1) Test 08/05/18 07:35 O2 Saturation 96 % (92-99) Arterial Blood pH 7.48 (7.35-7.45) Arterial Blood pCO2 at Patient Temp 38 mmHg (35-46) Arterial Blood pO2 at Patient Temp 85 mmHg (85-108) Arterial Blood HCO3 28 mmol/L (21-28) Arterial Blood Base Excess 4 mmol/L (-3-3) FiO2 50 Laboratory Tests Test 08/04/18 11:54 08/04/18 17:51 08/04/18 23:44 08/05/18 04:40 Glucose (Fingerstick) 151 mg/dL (70-99) 133 mg/dL (70-99) 133 mg/dL (70-99) White Blood Count 12.0 x10^3/uL (4.0-11.0) Red Blood Count 3.91 x10^6/uL (3.50-5.40) Hemoglobin 10.7 g/dL (12.0-15.5) Hematocrit 32.0 % (36.0-47.0) Mean Corpuscular Volume 82 fL (79-100) Mean Corpuscular Hemoglobin 27 pg (25-35) Mean Corpuscular Hemoglobin Concent 34 g/dL (31-37) Red Cell Distribution Width 13.8 % (11.5-14.5) Platelet Count 294 x10^3/uL (140-400) Neutrophils (%) (Auto) 76 % (31-73) Lymphocytes (%) (Auto) 17 % (24-48) Monocytes (%) (Auto) 6 % (0-9) Eosinophils (%) (Auto) 1 % (0-3) Basophils (%) (Auto) 0 % (0-3) Neutrophils # (Auto) 9.1 x10^3uL (1.8-7.7) Lymphocytes # (Auto) 2.1 x10^3/uL (1.0-4.8) Monocytes # (Auto) 0.7 x10^3/uL (0.0-1.1) Eosinophils # (Auto) 0.2 x10^3/uL (0.0-0.7) Basophils # (Auto) 0.0 x10^3/uL (0.0-0.2) Sodium Level 139 mmol/L (136-145) Potassium Level 4.1 mmol/L (3.5-5.1) Chloride Level 104 mmol/L (98-107) Carbon Dioxide Level 31 mmol/L (21-32) Anion Gap 4 (6-14) Blood Urea Nitrogen 17 mg/dL (7-20) Creatinine 0.6 mg/dL (0.6-1.0) Estimated GFR (Cockcroft-Gault) 117.4 Glucose Level 187 mg/dL (70-99) Calcium Level 8.4 mg/dL (8.5-10.1) Test 08/05/18 06:05 08/05/18 07:35 Glucose (Fingerstick) 170 mg/dL (70-99) O2 Saturation 96 % (92-99) Arterial Blood pH 7.48 (7.35-7.45) Arterial Blood pCO2 at Patient Temp 38 mmHg (35-46) Arterial Blood pO2 at Patient Temp 85 mmHg (85-108) Arterial Blood HCO3 28 mmol/L (21-28) Arterial Blood Base Excess 4 mmol/L (-3-3) FiO2 50 Medications Active Scripts Medications Dose Route/Sig Max Daily Dose Days Date Category Dose Instructions Topiramate 25 Mg Tablet 1 Tab PO HS 07/28/18 Reported Phentermine Hcl 37.5 Mg Capsule 1 Cap PO [id number] 07/28/18 Reported Metformin Hcl 500 Mg Tablet 500 Mg PO BIDWMEALS 07/28/18 Reported Motrin Ib (Ibuprofen) 200 Mg Tablet 800 Mg PO Q8H PRN 08/15/17 Rx Tessalon Perle (Benzonatate) 100 Mg Capsule 100 Mg PO TID PRN 01/11/17 Rx Prednisone 20 Mg Tablet 40 Mg PO DAILY 08/06/16 Rx START MEDICATIONS ON 08/07/2016 Medrol (Methylprednisolone) 4 Mg Tab.ds.pk 1 Pkg PO UD 11/16/14 Rx Levaquin (Levofloxacin) 750 Mg Tablet 750 Mg PO DAILY06 11/16/14 Rx Advair 250-50 Diskus (Fluticasone/Salmeterol) 1 Puff Puff 1 Puff INH BID 11/16/14 Rx Escitalopram Oxalate 20 Mg Tablet 1 Tab PO DAILY 11/09/14 Reported Xanax (Alprazolam) 0.25 Mg Tablet 0.25 Mg PO PRN Q6HRS PRN 11/09/14 Reported Impression . 1. Acute respiratory failure requiring mechanical ventilation 07/30. ARDS/ diffuse pneumonia 2. Acute exacerbation of chronic obstructive pulmonary disease with an asthma component. 3. abnl cxr, Diffuse lung infiltrates, suspect diffuse lung pneumonia/ ARDS 4. Morbid obesity, body mass index of 40, prob ji. 5. H/O Anxiety/panic attacks. 6. Status post cholecystectomy. CHEST XRAY Comparison is made to yesterday's study. The ET tube tip lies several centimeters above the tom. An NG tube extends into the stomach. A right jugular central venous catheter extends into the right atrium. The heart is mildly enlarged and unchanged. There are ongoing bibasilar pulmonary infiltrates, left greater than right. There may be pleural fluid inferiorly in the left basilar opacity. No new abnormality is seen. IMPRESSION: 1. Stable tube positions. 2. Unchanged bibasilar pulmonary infiltrates. Plan . OXYGENATION IS IMPROVING WILL CONTINUE SUPPORT AM TRIAL IF ABG IS ADEQUATE 1. AC mode, DECREASE PEEP IN AM 2. bronchodilators, cont Pulmicort, cont solumedrol to 40 q 8hrs 3. sed rate (43). continue steroids, 4. FOLLOW CXR 5. BS Abx 6. echo reviewed. normal EF/ PA pressures 7. mild diuresis prn 8. enteral nutrition 9. lovenox and protonix for prophylaxis 10. sputum cx CCT 30 MIN DESI HERNÁNDEZ MD Aug 05, 2018 10:51
--- NOTE | 2018-08-05 11:00 | PDOC ---
G I PROGRESS NOTE Subjective Sedated, on ventilator. Some withdrawal with exam. Objective Staff report no GI issues. Physical Exam Lungs clear anteriorly. RRR Abdomen soft, not distended. Bowel sounds present. Review of Relevant I have reviewed the following items [place] (where applicable) has been applied. Labs Laboratory Tests Test 08/03/18 11:36 08/03/18 13:45 08/03/18 16:29 08/04/18 00:12 Glucose (Fingerstick) 156 mg/dL (70-99) 148 mg/dL (70-99) 148 mg/dL (70-99) Influenza Type A Antigen Negative (NEGATIVE) Influenza Type B Antigen Negative (NEGATIVE) Test 08/04/18 05:14 08/04/18 05:32 08/04/18 07:40 08/04/18 11:54 White Blood Count 12.8 x10^3/uL (4.0-11.0) Red Blood Count 3.99 x10^6/uL (3.50-5.40) Hemoglobin 10.8 g/dL (12.0-15.5) Hematocrit 32.7 % (36.0-47.0) Mean Corpuscular Volume 82 fL (79-100) Mean Corpuscular Hemoglobin 27 pg (25-35) Mean Corpuscular Hemoglobin Concent 33 g/dL (31-37) Red Cell Distribution Width 13.9 % (11.5-14.5) Platelet Count 297 x10^3/uL (140-400) Neutrophils (%) (Auto) 77 % (31-73) Lymphocytes (%) (Auto) 17 % (24-48) Monocytes (%) (Auto) 6 % (0-9) Eosinophils (%) (Auto) 1 % (0-3) Basophils (%) (Auto) 0 % (0-3) Neutrophils # (Auto) 9.8 x10^3uL (1.8-7.7) Lymphocytes # (Auto) 2.1 x10^3/uL (1.0-4.8) Monocytes # (Auto) 0.7 x10^3/uL (0.0-1.1) Eosinophils # (Auto) 0.1 x10^3/uL (0.0-0.7) Basophils # (Auto) 0.0 x10^3/uL (0.0-0.2) Sodium Level 140 mmol/L (136-145) Potassium Level 4.1 mmol/L (3.5-5.1) Chloride Level 104 mmol/L (98-107) Carbon Dioxide Level 32 mmol/L (21-32) Anion Gap 4 (6-14) Blood Urea Nitrogen 19 mg/dL (7-20) Creatinine 0.6 mg/dL (0.6-1.0) Estimated GFR (Cockcroft-Gault) 117.4 BUN/Creatinine Ratio 32 (6-20) Glucose Level 196 mg/dL (70-99) Calcium Level 8.4 mg/dL (8.5-10.1) Total Bilirubin 0.6 mg/dL (0.2-1.0) Aspartate Amino Transf (AST/SGOT) 167 U/L (15-37) Alanine Aminotransferase (ALT/SGPT) 592 U/L (14-59) Alkaline Phosphatase 87 U/L (46-116) Total Protein 6.3 g/dL (6.4-8.2) Albumin 2.4 g/dL (3.4-5.0) Albumin/Globulin Ratio 0.6 (1.0-1.7) Triglycerides Level 308 mg/dL (0-150) Glucose (Fingerstick) 185 mg/dL (70-99) 151 mg/dL (70-99) O2 Saturation 96 % (92-99) Arterial Blood pH 7.46 (7.35-7.45) Arterial Blood pCO2 at Patient Temp 43 mmHg (35-46) Arterial Blood pO2 at Patient Temp 83 mmHg (85-108) Arterial Blood HCO3 30 mmol/L (21-28) Arterial Blood Base Excess 6 mmol/L (-3-3) FiO2 60 Test 08/04/18 17:51 08/04/18 23:44 08/05/18 04:40 08/05/18 06:05 Glucose (Fingerstick) 133 mg/dL (70-99) 133 mg/dL (70-99) 170 mg/dL (70-99) White Blood Count 12.0 x10^3/uL (4.0-11.0) Red Blood Count 3.91 x10^6/uL (3.50-5.40) Hemoglobin 10.7 g/dL (12.0-15.5) Hematocrit 32.0 % (36.0-47.0) Mean Corpuscular Volume 82 fL (79-100) Mean Corpuscular Hemoglobin 27 pg (25-35) Mean Corpuscular Hemoglobin Concent 34 g/dL (31-37) Red Cell Distribution Width 13.8 % (11.5-14.5) Platelet Count 294 x10^3/uL (140-400) Neutrophils (%) (Auto) 76 % (31-73) Lymphocytes (%) (Auto) 17 % (24-48) Monocytes (%) (Auto) 6 % (0-9) Eosinophils (%) (Auto) 1 % (0-3) Basophils (%) (Auto) 0 % (0-3) Neutrophils # (Auto) 9.1 x10^3uL (1.8-7.7) Lymphocytes # (Auto) 2.1 x10^3/uL (1.0-4.8) Monocytes # (Auto) 0.7 x10^3/uL (0.0-1.1) Eosinophils # (Auto) 0.2 x10^3/uL (0.0-0.7) Basophils # (Auto) 0.0 x10^3/uL (0.0-0.2) Sodium Level 139 mmol/L (136-145) Potassium Level 4.1 mmol/L (3.5-5.1) Chloride Level 104 mmol/L (98-107) Carbon Dioxide Level 31 mmol/L (21-32) Anion Gap 4 (6-14) Blood Urea Nitrogen 17 mg/dL (7-20) Creatinine 0.6 mg/dL (0.6-1.0) Estimated GFR (Cockcroft-Gault) 117.4 Glucose Level 187 mg/dL (70-99) Calcium Level 8.4 mg/dL (8.5-10.1) Test 08/05/18 07:35 O2 Saturation 96 % (92-99) Arterial Blood pH 7.48 (7.35-7.45) Arterial Blood pCO2 at Patient Temp 38 mmHg (35-46) Arterial Blood pO2 at Patient Temp 85 mmHg (85-108) Arterial Blood HCO3 28 mmol/L (21-28) Arterial Blood Base Excess 4 mmol/L (-3-3) FiO2 50 Laboratory Tests Test 08/04/18 11:54 08/04/18 17:51 08/04/18 23:44 08/05/18 04:40 Glucose (Fingerstick) 151 mg/dL (70-99) 133 mg/dL (70-99) 133 mg/dL (70-99) White Blood Count 12.0 x10^3/uL (4.0-11.0) Red Blood Count 3.91 x10^6/uL (3.50-5.40) Hemoglobin 10.7 g/dL (12.0-15.5) Hematocrit 32.0 % (36.0-47.0) Mean Corpuscular Volume 82 fL (79-100) Mean Corpuscular Hemoglobin 27 pg (25-35) Mean Corpuscular Hemoglobin Concent 34 g/dL (31-37) Red Cell Distribution Width 13.8 % (11.5-14.5) Platelet Count 294 x10^3/uL (140-400) Neutrophils (%) (Auto) 76 % (31-73) Lymphocytes (%) (Auto) 17 % (24-48) Monocytes (%) (Auto) 6 % (0-9) Eosinophils (%) (Auto) 1 % (0-3) Basophils (%) (Auto) 0 % (0-3) Neutrophils # (Auto) 9.1 x10^3uL (1.8-7.7) Lymphocytes # (Auto) 2.1 x10^3/uL (1.0-4.8) Monocytes # (Auto) 0.7 x10^3/uL (0.0-1.1) Eosinophils # (Auto) 0.2 x10^3/uL (0.0-0.7) Basophils # (Auto) 0.0 x10^3/uL (0.0-0.2) Sodium Level 139 mmol/L (136-145) Potassium Level 4.1 mmol/L (3.5-5.1) Chloride Level 104 mmol/L (98-107) Carbon Dioxide Level 31 mmol/L (21-32) Anion Gap 4 (6-14) Blood Urea Nitrogen 17 mg/dL (7-20) Creatinine 0.6 mg/dL (0.6-1.0) Estimated GFR (Cockcroft-Gault) 117.4 Glucose Level 187 mg/dL (70-99) Calcium Level 8.4 mg/dL (8.5-10.1) Test 08/05/18 06:05 08/05/18 07:35 Glucose (Fingerstick) 170 mg/dL (70-99) O2 Saturation 96 % (92-99) Arterial Blood pH 7.48 (7.35-7.45) Arterial Blood pCO2 at Patient Temp 38 mmHg (35-46) Arterial Blood pO2 at Patient Temp 85 mmHg (85-108) Arterial Blood HCO3 28 mmol/L (21-28) Arterial Blood Base Excess 4 mmol/L (-3-3) FiO2 50 Microbiology 07/28/18 Blood Culture - Final, Complete NO GROWTH AFTER 5 DAYS Vitals/I & O Vital Sign - Last 24 Hours 08/04/18 08/04/18 08/04/18 08/04/18 11:00 12:00 12:00 12:07 Temp 98.9 98.9 Pulse 53 59 Resp 18 18 B/P (MAP) 127/66 (86) 134/82 (99) Pulse Ox 94 94 95 O2 Delivery Ventilator Ventilator Mechanical Ventilator Ventilator 08/04/18 08/04/18 08/04/18 08/04/18 13:00 14:00 14:04 15:00 Pulse 68 61 51 Resp 18 18 18 B/P (MAP) 119/61 (80) 117/62 (80) 123/74 (90) Pulse Ox 95 95 96 95 O2 Delivery Ventilator Ventilator Ventilator Ventilator 08/04/18 08/04/18 08/04/18 08/04/18 15:43 16:00 16:00 16:14 Temp 99.0 99.0 Pulse 63 Resp 18 B/P (MAP) 135/73 (93) Pulse Ox 92 95 O2 Delivery Ventilator Ventilator Mechanical Ventilator Ventilator 08/04/18 08/04/18 08/04/18 08/04/18 17:00 18:00 18:00 19:00 Pulse 60 58 54 Resp 18 18 17 B/P (MAP) 138/78 (98) 123/64 (83) 120/61 (80) Pulse Ox 94 95 96 94 O2 Delivery Ventilator Ventilator Ventilator Ventilator 08/04/18 08/04/18 08/04/18 08/04/18 20:00 20:00 20:20 20:54 Temp 98.7 98.7 Pulse 59 Resp 18 18 B/P (MAP) 117/61 (79) Pulse Ox 95 95 96 O2 Delivery Mechanical Ventilator Ventilator Ventilator Ventilator 08/04/18 08/04/18 08/04/18 08/04/18 21:00 22:00 22:20 23:00 Pulse 60 63 51 Resp 18 18 18 B/P (MAP) 112/63 (79) 118/65 (82) 118/69 (85) Pulse Ox 96 96 96 96 O2 Delivery Ventilator Ventilator Ventilator Ventilator 08/04/18 08/05/18 08/05/18 08/05/18 23:52 00:00 00:00 01:00 Temp 98.7 98.7 Pulse 66 61 Resp 18 18 B/P (MAP) 138/82 (100) 135/69 (91) Pulse Ox 96 95 95 O2 Delivery Ventilator Mechanical Ventilator Ventilator Ventilator 08/05/18 08/05/18 08/05/18 08/05/18 01:35 02:00 02:12 02:42 Pulse 55 Resp 18 18 18 B/P (MAP) 130/72 (91) Pulse Ox 96 95 95 94 O2 Delivery Ventilator Ventilator Ventilator 08/05/18 08/05/18 08/05/18 08/05/18 03:00 03:52 04:00 04:00 Temp 98.6 98.6 Pulse 52 62 Resp 18 18 B/P (MAP) 125/70 (88) 128/66 (86) Pulse Ox 94 96 94 O2 Delivery Ventilator Ventilator Ventilator Mechanical Ventilator 08/05/18 08/05/18 08/05/18 08/05/18 05:00 05:50 06:00 07:00 Pulse 60 56 52 Resp 18 18 18 B/P (MAP) 123/60 (81) 129/77 (94) 129/74 (92) Pulse Ox 95 96 97 97 O2 Delivery Ventilator Ventilator Ventilator Ventilator 08/05/18 08/05/18 08/05/18 08/05/18 07:20 07:47 08:00 08:00 Temp 98.8 98.8 Pulse 65 Resp 18 B/P (MAP) 147/85 (105) Pulse Ox 96 94 O2 Delivery Ventilator Ventilator Ventilator Mechanical Ventilator 08/05/18 08/05/18 08/05/18 08/05/18 08:01 08:20 09:00 09:09 Pulse 62 59 Resp 18 B/P (MAP) 129/74 123/66 (85) Pulse Ox 96 96 O2 Delivery Ventilator Ventilator Ventilator 08/05/18 10:21 Pulse 54 Resp 18 B/P (MAP) 116/66 (83) Pulse Ox 96 O2 Delivery Ventilator Intake and Output 08/04/18 08/04/18 08/05/18 15:00 23:00 07:00 Intake Total 610 ml 1386.68 ml 1785 ml Output Total 1040 ml 1555 ml 1805 ml Balance -430 ml -168.32 ml -20 ml Problem List Problems Medical Problems: (1) Pneumonia Status: Acute Assessment Respiratory failure/tolerating OG feedings. Plan of Care: Continue current Tx, Mgmt KATHRYN ROCA MD Aug 05, 2018 11:00
--- NOTE | 2018-08-05 13:05 | PDOC ---
PROGRESS NOTES Chief Complaint Chief Complaint Acute hypoxic respiratory failure with intubation Sepsis Pneumonia EZ lobe Acute asthma exacerbation Obesity Possible ileus Transaminitis, NOS History of Present Illness History of Present Illness Pt seen and examined in ICU Dw RN Pt sedated on ventilator A/C/18/550/50% w/ 7 PEEP Vitals Vitals Vital Signs Date Time Temp Pulse Resp B/P (MAP) Pulse Ox O2 Delivery O2 Flow Rate FiO2 08/05/18 12:00 Mechanical Ventilator 08/05/18 12:00 98.7 78 18 118/59 (78) 95 98.7 Physical Exam General: No acute distress, Other (sedated on ventilator) Heart: Regular rate, Normal S1, Normal S2 Lungs: Crackles Abdomen: Normal bowel sounds, Soft Extremities: No cyanosis, No edema, Normal pulses Skin: No rashes, No significant lesion Labs LABS Laboratory Tests Test 08/04/18 17:51 08/04/18 23:44 08/05/18 04:40 08/05/18 06:05 Glucose (Fingerstick) 133 mg/dL (70-99) 133 mg/dL (70-99) 170 mg/dL (70-99) White Blood Count 12.0 x10^3/uL (4.0-11.0) Red Blood Count 3.91 x10^6/uL (3.50-5.40) Hemoglobin 10.7 g/dL (12.0-15.5) Hematocrit 32.0 % (36.0-47.0) Mean Corpuscular Volume 82 fL (79-100) Mean Corpuscular Hemoglobin 27 pg (25-35) Mean Corpuscular Hemoglobin Concent 34 g/dL (31-37) Red Cell Distribution Width 13.8 % (11.5-14.5) Platelet Count 294 x10^3/uL (140-400) Neutrophils (%) (Auto) 76 % (31-73) Lymphocytes (%) (Auto) 17 % (24-48) Monocytes (%) (Auto) 6 % (0-9) Eosinophils (%) (Auto) 1 % (0-3) Basophils (%) (Auto) 0 % (0-3) Neutrophils # (Auto) 9.1 x10^3uL (1.8-7.7) Lymphocytes # (Auto) 2.1 x10^3/uL (1.0-4.8) Monocytes # (Auto) 0.7 x10^3/uL (0.0-1.1) Eosinophils # (Auto) 0.2 x10^3/uL (0.0-0.7) Basophils # (Auto) 0.0 x10^3/uL (0.0-0.2) Sodium Level 139 mmol/L (136-145) Potassium Level 4.1 mmol/L (3.5-5.1) Chloride Level 104 mmol/L (98-107) Carbon Dioxide Level 31 mmol/L (21-32) Anion Gap 4 (6-14) Blood Urea Nitrogen 17 mg/dL (7-20) Creatinine 0.6 mg/dL (0.6-1.0) Estimated GFR (Cockcroft-Gault) 117.4 Glucose Level 187 mg/dL (70-99) Calcium Level 8.4 mg/dL (8.5-10.1) Test 08/05/18 07:35 08/05/18 12:16 O2 Saturation 96 % (92-99) Arterial Blood pH 7.48 (7.35-7.45) Arterial Blood pCO2 at Patient Temp 38 mmHg (35-46) Arterial Blood pO2 at Patient Temp 85 mmHg (85-108) Arterial Blood HCO3 28 mmol/L (21-28) Arterial Blood Base Excess 4 mmol/L (-3-3) FiO2 50 Glucose (Fingerstick) 170 mg/dL (70-99) Review of Systems Review of Systems Pt sedated on ventilator Assessment and Plan Assessmemt and Plan Problems Medical Problems: (1) Pneumonia Status: Acute Acute hypoxic respiratory failure with intubation Sepsis Pneumonia EZ lobe Acute asthma exacerbation Obesity Possible ileus Transaminitis, NOS Plan: ICU monitoring Cont. vent weaning Propofol sedation OG feeding King to bedside drainage Abx Labs Mitts Comment Review of Relevant I have reviewed the following items [place] (where applicable) has been applied. Labs Laboratory Tests Test 08/03/18 13:45 08/03/18 16:29 08/04/18 00:12 08/04/18 05:14 Influenza Type A Antigen Negative (NEGATIVE) Influenza Type B Antigen Negative (NEGATIVE) Glucose (Fingerstick) 148 mg/dL (70-99) 148 mg/dL (70-99) White Blood Count 12.8 x10^3/uL (4.0-11.0) Red Blood Count 3.99 x10^6/uL (3.50-5.40) Hemoglobin 10.8 g/dL (12.0-15.5) Hematocrit 32.7 % (36.0-47.0) Mean Corpuscular Volume 82 fL (79-100) Mean Corpuscular Hemoglobin 27 pg (25-35) Mean Corpuscular Hemoglobin Concent 33 g/dL (31-37) Red Cell Distribution Width 13.9 % (11.5-14.5) Platelet Count 297 x10^3/uL (140-400) Neutrophils (%) (Auto) 77 % (31-73) Lymphocytes (%) (Auto) 17 % (24-48) Monocytes (%) (Auto) 6 % (0-9) Eosinophils (%) (Auto) 1 % (0-3) Basophils (%) (Auto) 0 % (0-3) Neutrophils # (Auto) 9.8 x10^3uL (1.8-7.7) Lymphocytes # (Auto) 2.1 x10^3/uL (1.0-4.8) Monocytes # (Auto) 0.7 x10^3/uL (0.0-1.1) Eosinophils # (Auto) 0.1 x10^3/uL (0.0-0.7) Basophils # (Auto) 0.0 x10^3/uL (0.0-0.2) Sodium Level 140 mmol/L (136-145) Potassium Level 4.1 mmol/L (3.5-5.1) Chloride Level 104 mmol/L (98-107) Carbon Dioxide Level 32 mmol/L (21-32) Anion Gap 4 (6-14) Blood Urea Nitrogen 19 mg/dL (7-20) Creatinine 0.6 mg/dL (0.6-1.0) Estimated GFR (Cockcroft-Gault) 117.4 BUN/Creatinine Ratio 32 (6-20) Glucose Level 196 mg/dL (70-99) Calcium Level 8.4 mg/dL (8.5-10.1) Total Bilirubin 0.6 mg/dL (0.2-1.0) Aspartate Amino Transf (AST/SGOT) 167 U/L (15-37) Alanine Aminotransferase (ALT/SGPT) 592 U/L (14-59) Alkaline Phosphatase 87 U/L (46-116) Total Protein 6.3 g/dL (6.4-8.2) Albumin 2.4 g/dL (3.4-5.0) Albumin/Globulin Ratio 0.6 (1.0-1.7) Triglycerides Level 308 mg/dL (0-150) Test 08/04/18 05:32 08/04/18 07:40 08/04/18 11:54 08/04/18 17:51 Glucose (Fingerstick) 185 mg/dL (70-99) 151 mg/dL (70-99) 133 mg/dL (70-99) O2 Saturation 96 % (92-99) Arterial Blood pH 7.46 (7.35-7.45) Arterial Blood pCO2 at Patient Temp 43 mmHg (35-46) Arterial Blood pO2 at Patient Temp 83 mmHg (85-108) Arterial Blood HCO3 30 mmol/L (21-28) Arterial Blood Base Excess 6 mmol/L (-3-3) FiO2 60 Test 08/04/18 23:44 08/05/18 04:40 08/05/18 06:05 08/05/18 07:35 Glucose (Fingerstick) 133 mg/dL (70-99) 170 mg/dL (70-99) White Blood Count 12.0 x10^3/uL (4.0-11.0) Red Blood Count 3.91 x10^6/uL (3.50-5.40) Hemoglobin 10.7 g/dL (12.0-15.5) Hematocrit 32.0 % (36.0-47.0) Mean Corpuscular Volume 82 fL (79-100) Mean Corpuscular Hemoglobin 27 pg (25-35) Mean Corpuscular Hemoglobin Concent 34 g/dL (31-37) Red Cell Distribution Width 13.8 % (11.5-14.5) Platelet Count 294 x10^3/uL (140-400) Neutrophils (%) (Auto) 76 % (31-73) Lymphocytes (%) (Auto) 17 % (24-48) Monocytes (%) (Auto) 6 % (0-9) Eosinophils (%) (Auto) 1 % (0-3) Basophils (%) (Auto) 0 % (0-3) Neutrophils # (Auto) 9.1 x10^3uL (1.8-7.7) Lymphocytes # (Auto) 2.1 x10^3/uL (1.0-4.8) Monocytes # (Auto) 0.7 x10^3/uL (0.0-1.1) Eosinophils # (Auto) 0.2 x10^3/uL (0.0-0.7) Basophils # (Auto) 0.0 x10^3/uL (0.0-0.2) Sodium Level 139 mmol/L (136-145) Potassium Level 4.1 mmol/L (3.5-5.1) Chloride Level 104 mmol/L (98-107) Carbon Dioxide Level 31 mmol/L (21-32) Anion Gap 4 (6-14) Blood Urea Nitrogen 17 mg/dL (7-20) Creatinine 0.6 mg/dL (0.6-1.0) Estimated GFR (Cockcroft-Gault) 117.4 Glucose Level 187 mg/dL (70-99) Calcium Level 8.4 mg/dL (8.5-10.1) O2 Saturation 96 % (92-99) Arterial Blood pH 7.48 (7.35-7.45) Arterial Blood pCO2 at Patient Temp 38 mmHg (35-46) Arterial Blood pO2 at Patient Temp 85 mmHg (85-108) Arterial Blood HCO3 28 mmol/L (21-28) Arterial Blood Base Excess 4 mmol/L (-3-3) FiO2 50 Test 08/05/18 12:16 Glucose (Fingerstick) 170 mg/dL (70-99) Laboratory Tests Test 08/04/18 17:51 08/04/18 23:44 08/05/18 04:40 08/05/18 06:05 Glucose (Fingerstick) 133 mg/dL (70-99) 133 mg/dL (70-99) 170 mg/dL (70-99) White Blood Count 12.0 x10^3/uL (4.0-11.0) Red Blood Count 3.91 x10^6/uL (3.50-5.40) Hemoglobin 10.7 g/dL (12.0-15.5) Hematocrit 32.0 % (36.0-47.0) Mean Corpuscular Volume 82 fL (79-100) Mean Corpuscular Hemoglobin 27 pg (25-35) Mean Corpuscular Hemoglobin Concent 34 g/dL (31-37) Red Cell Distribution Width 13.8 % (11.5-14.5) Platelet Count 294 x10^3/uL (140-400) Neutrophils (%) (Auto) 76 % (31-73) Lymphocytes (%) (Auto) 17 % (24-48) Monocytes (%) (Auto) 6 % (0-9) Eosinophils (%) (Auto) 1 % (0-3) Basophils (%) (Auto) 0 % (0-3) Neutrophils # (Auto) 9.1 x10^3uL (1.8-7.7) Lymphocytes # (Auto) 2.1 x10^3/uL (1.0-4.8) Monocytes # (Auto) 0.7 x10^3/uL (0.0-1.1) Eosinophils # (Auto) 0.2 x10^3/uL (0.0-0.7) Basophils # (Auto) 0.0 x10^3/uL (0.0-0.2) Sodium Level 139 mmol/L (136-145) Potassium Level 4.1 mmol/L (3.5-5.1) Chloride Level 104 mmol/L (98-107) Carbon Dioxide Level 31 mmol/L (21-32) Anion Gap 4 (6-14) Blood Urea Nitrogen 17 mg/dL (7-20) Creatinine 0.6 mg/dL (0.6-1.0) Estimated GFR (Cockcroft-Gault) 117.4 Glucose Level 187 mg/dL (70-99) Calcium Level 8.4 mg/dL (8.5-10.1) Test 08/05/18 07:35 08/05/18 12:16 O2 Saturation 96 % (92-99) Arterial Blood pH 7.48 (7.35-7.45) Arterial Blood pCO2 at Patient Temp 38 mmHg (35-46) Arterial Blood pO2 at Patient Temp 85 mmHg (85-108) Arterial Blood HCO3 28 mmol/L (21-28) Arterial Blood Base Excess 4 mmol/L (-3-3) FiO2 50 Glucose (Fingerstick) 170 mg/dL (70-99) Microbiology 07/28/18 Blood Culture - Final, Complete NO GROWTH AFTER 5 DAYS Medications Current Medications Prednisone (Prednisone) 50 mg 1X ONCE PO Last administered on 07/28/18at 06:47; Start 07/28/18 at 07:00; Stop 07/28/18 at 07:01; Status DC Albuterol/ Ipratropium (Duoneb) 3 ml 1X ONCE NEB Last administered on at 06:37; Start 07/28/18 at 07:00; Stop 07/28/18 at 07:01; Status DC Sodium Chloride 1,000 ml @ 1,000 mls/hr 1X ONCE IV Last administered on at 07:03; Start 07/28/18 at 07:00; Stop 07/28/18 at 07:59; Status DC Albuterol Sulfate (Ventolin Neb Soln) 10 mg 1X ONCE CONT NEB Last administered on 07/28/18at 07:25; Start 07/28/18 at 07:00; Stop 07/28/18 at 07:02; Status DC Magnesium Sulfate 50 ml @ 25 mls/hr 1X ONCE IV Last administered on 07/28/18at 07:41; Start 07/28/18 at 07:15; Stop 07/28/18 at 09:14; Status DC Ceftriaxone Sodium 50 ml @ 100 mls/hr 1X ONCE IV Last administered on at 08:52; Start 07/28/18 at 08:15; Stop 07/28/18 at 08:44; Status DC Azithromycin 250 ml @ 250 mls/hr 1X ONCE IV Last administered on 07/28/18at 09: 20; Start 07/28/18 at 08:15; Stop 07/28/18 at 09:14; Status DC Acetaminophen/ Hydrocodone Bitart (Lortab 5/325) 2 tab 1X ONCE PO Last administered on 07/28/18at 08:49; Start 07/28/18 at 08:45; Stop 07/28/18 at 08:46; Status DC Ondansetron HCl (Zofran) 4 mg PRN Q8HRS PRN IV NAUSEA/VOMITING Last administered on 07/28/18at 22:40; Start 07/28/18 at 08:45; Stop 07/29/18 at 08:44; Status DC Acetaminophen (Tylenol) 650 mg PRN Q4HRS PRN PO FEVER Last administered on at 22:40; Start 07/28/18 at 08:45; Stop 07/29/18 at 08:44; Status DC Albuterol/ Ipratropium (Duoneb) 3 ml RTQID NEB Last administered on 07/29/18at 07 :29; Start 07/28/18 at 12:00; Stop 07/29/18 at 10:30; Status DC Acetaminophen/ Hydrocodone Bitart (Lortab 5/325) 2 tab Q6H PRN PO MODERATE- SEVERE PAIN Last administered on 07/29/18at 23:09; Start 07/28/18 at 08:45 Prednisone (Prednisone) 60 mg DAILY PO ; Start 07/29/18 at 09:00; Stop 07/29/18 at 09:00; Status DC Budesonide (Pulmicort) 0.5 mg RTBID NEB Last administered on 08/05/18at 07:42; Start 07/28/18 at 20:00 Budesonide (Pulmicort) 0.5 mg 1X ONCE NEB Last administered on 07/28/18at 11:06 ; Start 07/28/18 at 09:30; Stop 07/28/18 at 09:31; Status DC Albuterol Sulfate (Ventolin Neb Soln) 2.5 mg PRN Q4HRS PRN NEB SHORTNESS OF BREATH; Start 07/28/18 at 09:30 Azithromycin (Zithromax) 250 mg DAILY PO Last administered on 08/01/18at 08:54; Start 07/28/18 at 10:00; Stop 08/01/18 at 09:01; Status DC Alprazolam (Xanax) 0.25 mg PRN Q6HRS PRN PO ANXIETY / AGITATION Last administered on 07/29/18at 23:13; Start 07/28/18 at 12:45 Ibuprofen (Motrin) 800 mg PRN Q8HRS PRN PO PAIN MILD/INFLAMMATION; Start at 12:45 Benzonatate (Tessalon Perle) 100 mg PRN TID PRN PO COUGH 2ND CHOICE; Start 07/28 at 14:00 Citalopram Hydrobromide (CeleXA) 40 mg DAILY PO Last administered on 08/05/18at 08:03; Start 07/28/18 at 13:00 Metformin HCl (Glucophage) 500 mg BIDWMEALS PO Last administered on 07/29/18at 10 :07; Start 07/28/18 at 17:00; Stop 07/31/18 at 08:58; Status DC Promethazine HCl/ Codeine (Phenergan With Codeine) 5 ml PRN Q6HRS PRN PO COUGH 1ST CHOICE Last administered on 07/29/18at 16:25; Start 07/28/18 at 15:30 Guaifenesin (MUCINEX ER with DM) 1 tab BID PO Last administered on 07/30/18at 20: 57; Start 07/28/18 at 21:00; Stop 07/31/18 at 09:47; Status DC Lactobacillus Rhamnosus (Culturelle) 1 cap BID PO Last administered on at 21:44; Start 07/28/18 at 21:00; Stop 07/30/18 at 09:48; Status DC Prednisone (Prednisone) 30 mg DAILY PO Last administered on 07/29/18at 10:06; Start 07/29/18 at 09:00; Stop 07/31/18 at 08:58; Status DC Ceftriaxone Sodium 1 gm/ Dextrose 50 ml @ 100 mls/hr Q24H IV ; Start 07/29/18 at 09:00; Status UNV Ceftriaxone Sodium (Rocephin) 1 gm Q24H IVP Last administered on 07/29/18at 10:06 ; Start 07/29/18 at 09:00; Stop 07/30/18 at 10:07; Status DC Albuterol/ Ipratropium (Duoneb) 3 ml Q4HRS NEB Last administered on 08/02/18at 08 :40; Start 07/29/18 at 12:00; Stop 08/02/18 at 09:31; Status DC Budesonide (Pulmicort) 0.5 mg RTBID NEB ; Start 07/29/18 at 20:00; Status UNV Famotidine (Pepcid) 20 mg QHS PO Last administered on 07/29/18at 21:44; Start 07/29/18 at 21:00; Stop 07/30/18 at 10:10; Status DC Enoxaparin Sodium (Lovenox 40mg Syringe) 40 mg Q12H SQ Last administered on 10/12at 12:26; Start 07/29/18 at 12:30 Acetaminophen (Tylenol) 650 mg PRN Q6HRS PRN PO FEVER; Start 07/29/18 at 11:45 Ondansetron HCl (Zofran) 4 mg PRN Q6HRS PRN IV NAUSEA/VOMITING Last administered on 07/29/18at 15:23; Start 07/29/18 at 11:45 Morphine Sulfate (Morphine Sulfate) 2 mg PRN Q2HR PRN IV MODERATE TO SEVERE PAIN; Start 07/29/18 at 11:45 Tramadol HCl (Ultram) 50 mg PRN Q6HRS PRN PO MODERATE PAIN; Start 07/29/18 at 11 :45 Docusate Sodium (Colace) 100 mg PRN DAILY PRN PO CONSTIPATION; Start 07/29/18 at 11:45 Haloperidol Lactate (Haldol Inj) 2 mg PRN Q2HR PRN IVP AGITATION 2ND CHOICE Last administered on 08/01/18at 15:48; Start 07/30/18 at 01:30 Lorazepam (Ativan) 0.25 mg PRN Q1HR PRN IV ANXIETY/AGITATION 1ST CHOICE Last administered on 08/05/18at 08:30; Start 07/30/18 at 01:30 Propofol 100 ml @ As Directed STK-MED ONCE IV ; Start 07/30/18 at 04:12; Stop at 04:13; Status DC Etomidate (Amidate) 20 mg STK-MED ONCE IV ; Start 07/30/18 at 04:18; Stop at 04:19; Status DC Propofol 100 ml @ 0 mls/hr CONT PRN IV PER PROTOCOL Last administered on at 12:22; Start 07/30/18 at 04:30 Chlorhexidine Gluconate (Peridex) 15 ml BID MM Last administered on 08/05/18at 08:01; Start 07/30/18 at 09:00 Midazolam HCl 100 ml @ 0 mls/hr CONT PRN IV PER PROTOCOL Last administered on at 19:14; Start 07/30/18 at 04:30 Piperacillin Sod/ Tazobactam Sod (Zosyn Per Pharmacy) 1 each PRN DAILY PRN MC SEE COMMENTS; Start 07/30/18 at 10:00 Vancomycin HCl (Vanco Per Pharmacy) 1 each PRN DAILY PRN MC SEE COMMENTS Last administered on 08/03/18at 08:31; Start 07/30/18 at 10:00; Stop 08/03/18 at 12:30; Status DC Methylprednisolone Sodium Succinate (SOLU-Medrol 125MG VIAL) 60 mg Q8HRS IV Last administered on 08/03/18at 05:49; Start 07/30/18 at 14:00; Stop 08/03/18 at 06: 32; Status DC Pantoprazole Sodium (PROTONIX VIAL for IV PUSH) 40 mg DAILYAC IVP Last administered on 08/05/18at 08:02; Start 07/30/18 at 10:30 Piperacillin Sod/ Tazobactam Sod 3.375 gm/Sodium Chloride 50 ml @ 100 mls/hr Q6HRS IV Last administered on 08/05/18at 12:21; Start 07/30/18 at 12:00 Vancomycin HCl 2 gm/Sodium Chloride 500 ml @ 250 mls/hr 1X ONCE IV Last administered on 07/30/18at 10:31; Start 07/30/18 at 10:30; Stop 07/30/18 at 12:29; Status DC Vancomycin HCl 1.5 gm/Sodium Chloride 500 ml @ 250 mls/hr Q8H IV Last administered on 07/31/18at 14:10; Start 07/30/18 at 18:30; Stop 07/31/18 at 17:00; Status DC Vancomycin HCl (Vancomycin Trough Level) 1 each 1X ONCE MC Last administered on 07/31/18at 13:30; Start 07/31/18 at 13:30; Stop 07/31/18 at 13:31; Status DC Insulin Human Lispro (HumaLOG) 0-7 UNITS TIDWMEALS SQ ; Start 07/31/18 at 08:00; Stop 07/31/18 at 09:04; Status DC Dextrose (Dextrose 50%-Water Syringe) 12.5 gm PRN Q15MIN PRN IV SEE COMMENTS; Start 07/30/18 at 17:45 Insulin Human Lispro (HumaLOG) 0-7 UNITS Q6HRS SQ Last administered on at 12:24; Start 07/31/18 at 12:00 Vancomycin HCl 1.75 gm/Sodium Chloride 500 ml @ 250 mls/hr Q8H IV Last administered on 08/01/18at 13:48; Start 07/31/18 at 22:00; Stop 08/01/18 at 22:01; Status DC Vancomycin HCl (Vancomycin Trough Level) 1 each 1X ONCE MC Last administered on 08/01/18at 21:01; Start 08/01/18 at 21:30; Stop 08/01/18 at 21:31; Status DC Erythromycin Ethylsuccinate (E.e.s. 200) 200 mg 1X ONCE PEG Last administered on 08/01/18at 12:19; Start 08/01/18 at 13:00; Stop 08/01/18 at 13:01; Status DC Vancomycin HCl 2 gm/Sodium Chloride 500 ml @ 250 mls/hr Q8H IV Last administered on 08/02/18at 22:56; Start 08/01/18 at 22:00; Stop 08/02/18 at 22:59; Status DC Vancomycin HCl (Vancomycin Trough Level) 1 each 1X ONCE MC Last administered on 08/02/18at 21:30; Start 08/02/18 at 21:30; Stop 08/02/18 at 21:31; Status DC Fentanyl Citrate 30 ml @ 0 mls/hr CONT PRN IV PER PROTOCOL Last administered on 08/05/18at 07:47; Start 08/02/18 at 07:00 Enalaprilat (Vasotec Inj) 1.25 mg PRN Q6HRS PRN IVP HYPERTENSION, SEE COMMENTS ; Start 08/02/18 at 09:15 Amlodipine Besylate (Norvasc) 2.5 mg DAILY PO Last administered on 08/05/18at 08 :01; Start 08/02/18 at 10:00 Albuterol/ Ipratropium (Duoneb) 3 ml RTQID NEB Last administered on 08/05/18at 11:47; Start 08/02/18 at 12:00 Vancomycin HCl 1.75 gm/Sodium Chloride 500 ml @ 250 mls/hr Q6H IV Last administered on 08/03/18at 05:53; Start 08/03/18 at 05:00; Stop 08/03/18 at 08:23; Status DC Vancomycin HCl (Vancomycin Trough Level) 1 each 1X ONCE MC ; Start 08/03/18 at 22:30; Stop 08/03/18 at 22:31; Status Cancel Methylprednisolone Sodium Succinate (SOLU-Medrol 125MG VIAL) 40 mg Q8HRS IV Last administered on 08/05/18at 06:07; Start 08/03/18 at 14:00 Vancomycin HCl 2 gm/Sodium Chloride 500 ml @ 250 mls/hr Q8H IV ; Start 08/03/18 at 14:00; Stop 08/03/18 at 14:00; Status DC Azithromycin 500 mg/Sodium Chloride 250 ml @ 250 mls/hr Q24H IV Last administered on 08/04/18at 12:55; Start 08/03/18 at 13:00 Active Scripts Active Motrin Ib (Ibuprofen) 200 Mg Tablet 800 Mg PO Q8H PRN Tessalon Perle (Benzonatate) 100 Mg Capsule 100 Mg PO TID PRN Prednisone 20 Mg Tablet 40 Mg PO DAILY START MEDICATIONS ON 08/07/2016 Medrol (Methylprednisolone) 4 Mg Tab.ds.pk 1 Pkg PO UD Levaquin (Levofloxacin) 750 Mg Tablet 750 Mg PO DAILY06 Advair 250-50 Diskus (Fluticasone/Salmeterol) 1 Puff Puff 1 Puff INH BID Reported Topiramate 25 Mg Tablet 1 Tab PO HS Phentermine Hcl 37.5 Mg Capsule 1 Cap PO DAILYWBKFT Metformin Hcl 500 Mg Tablet 500 Mg PO BIDWMEALS Escitalopram Oxalate 20 Mg Tablet 1 Tab PO DAILY Xanax (Alprazolam) 0.25 Mg Tablet 0.25 Mg PO PRN Q6HRS PRN Vitals/I & O Vital Sign - Last 24 Hours 08/04/18 08/04/18 08/04/18 08/04/18 13:00 14:00 14:04 15:00 Pulse 68 61 51 Resp 18 18 18 B/P (MAP) 119/61 (80) 117/62 (80) 123/74 (90) Pulse Ox 95 95 96 95 O2 Delivery Ventilator Ventilator Ventilator Ventilator 08/04/18 08/04/18 08/04/18 08/04/18 15:43 16:00 16:00 16:14 Temp 99.0 99.0 Pulse 63 Resp 18 B/P (MAP) 135/73 (93) Pulse Ox 92 95 O2 Delivery Ventilator Ventilator Mechanical Ventilator Ventilator 08/04/18 08/04/18 08/04/18 08/04/18 17:00 18:00 18:00 19:00 Pulse 60 58 54 Resp 18 18 17 B/P (MAP) 138/78 (98) 123/64 (83) 120/61 (80) Pulse Ox 94 95 96 94 O2 Delivery Ventilator Ventilator Ventilator Ventilator 08/04/18 08/04/18 08/04/18 08/04/18 20:00 20:00 20:20 20:54 Temp 98.7 98.7 Pulse 59 Resp 18 18 B/P (MAP) 117/61 (79) Pulse Ox 95 95 96 O2 Delivery Mechanical Ventilator Ventilator Ventilator Ventilator 08/04/18 08/04/18 08/04/18 08/04/18 21:00 22:00 22:20 23:00 Pulse 60 63 51 Resp 18 18 18 B/P (MAP) 112/63 (79) 118/65 (82) 118/69 (85) Pulse Ox 96 96 96 96 O2 Delivery Ventilator Ventilator Ventilator Ventilator 08/04/18 08/05/18 08/05/18 08/05/18 23:52 00:00 00:00 01:00 Temp 98.7 98.7 Pulse 66 61 Resp 18 18 B/P (MAP) 138/82 (100) 135/69 (91) Pulse Ox 96 95 95 O2 Delivery Ventilator Mechanical Ventilator Ventilator Ventilator 08/05/18 08/05/18 08/05/18 08/05/18 01:35 02:00 02:12 02:42 Pulse 55 Resp 18 18 18 B/P (MAP) 130/72 (91) Pulse Ox 96 95 95 94 O2 Delivery Ventilator Ventilator Ventilator 08/05/18 08/05/18 08/05/18 08/05/18 03:00 03:52 04:00 04:00 Temp 98.6 98.6 Pulse 52 62 Resp 18 18 B/P (MAP) 125/70 (88) 128/66 (86) Pulse Ox 94 96 94 O2 Delivery Ventilator Ventilator Ventilator Mechanical Ventilator 08/05/18 08/05/18 08/05/18 08/05/18 05:00 05:50 06:00 07:00 Pulse 60 56 52 Resp 18 18 18 B/P (MAP) 123/60 (81) 129/77 (94) 129/74 (92) Pulse Ox 95 96 97 97 O2 Delivery Ventilator Ventilator Ventilator Ventilator 08/05/18 08/05/18 08/05/18 08/05/18 07:20 07:47 08:00 08:00 Temp 98.8 98.8 Pulse 65 Resp 18 B/P (MAP) 147/85 (105) Pulse Ox 96 94 O2 Delivery Ventilator Ventilator Ventilator Mechanical Ventilator 08/05/18 08/05/18 08/05/18 08/05/18 08:01 08:20 09:00 09:09 Pulse 62 59 Resp 18 B/P (MAP) 129/74 123/66 (85) Pulse Ox 96 96 O2 Delivery Ventilator Ventilator Ventilator 08/05/18 08/05/18 08/05/18 08/05/18 10:21 11:02 11:20 12:00 Temp 98.7 98.7 Pulse 54 56 78 Resp 18 18 18 B/P (MAP) 116/66 (83) 119/61 (80) 118/59 (78) Pulse Ox 96 96 96 95 O2 Delivery Ventilator Ventilator Ventilator Ventilator 08/05/18 12:00 O2 Delivery Mechanical Ventilator Intake and Output 08/04/18 08/04/18 08/05/18 15:00 23:00 07:00 Intake Total 610 ml 1386.68 ml 1785 ml Output Total 1040 ml 1555 ml 1805 ml Balance -430 ml -168.32 ml -20 ml JAIRON DUENAS III DO Aug 05, 2018 13:05
[2018-08-05] MEDS: AZITHROMYCIN 500 MG in IV NORMAL SALINE 250ML 250 ML IV SCH (13:08)
[2018-08-06] VITALS (24 sets, daily range): BP systolic 107–135; BP diastolic 49–73
[2018-08-06] MEDS: ENOXAPARIN 40 MG/0.4 ML SYRINGE. SQ SCH ×2 (00:09→12:20)
[2018-08-06 00:43] LABS: RVP ADENOVIRUS Negative (Negative); RVP INFLUENZA A Negative (Negative); RVP INFLUENZA B Negative (Negative); RVP METAPNEUMOVIRUS Negative (Negative); RVP PARAINFLUENZA 1 Negative (Negative); RVP PARAINFLUENZA 2 Negative (Negative); RVP PARAINFLUENZA 3 Negative (Negative); RVP RHINOVIRUS Positive (Negative); RVP RSV A Negative (Negative); RVP RSV B Negative (Negative)
[2018-08-06] MEDS: PROPOFOL 100 ML IV PRN ×8 (02:38→22:01)
[2018-08-06 05:10] LABS: CALCIUM 8.4 mg/dL (8.5-10.1); CREATININE 0.6 mg/dL (0.6-1.0); GFR 117.4; POTASSIUM 4.3 mmol/L (3.5-5.1)
[2018-08-06 05:14] LABS: BASO % 0 % (0-3); EOS # 0.1 x10^3/uL (0.0-0.7); EOS % 1 % (0-3); HEMATOCRIT 31.5 % (36.0-47.0); HEMOGLOBIN 10.7 g/dL (12.0-15.5); LYMPH # 1.6 x10^3/uL (1.0-4.8); LYMPH % 17 % (24-48); MEAN CORPUSCULAR HEMOGLOBIN 28 pg (25-35); MEAN CORPUSCULAR HGB CONC 34 g/dL (31-37); MEAN CORPUSCULAR VOLUME 82 fL (79-100); MONO # 0.6 x10^3/uL (0.0-1.1); MONO % 7 % (0-9); NEUT # 7.4 x10^3uL (1.8-7.7); NEUT % 76 % (31-73); PLATELET COUNT 270 x10^3/uL (140-400); RED BLOOD COUNT 3.85 x10^6/uL (3.50-5.40); RED CELL DISTRIBUTION WIDTH 13.8 % (11.5-14.5); WHITE BLOOD COUNT 9.7 x10^3/uL (4.0-11.0)
[2018-08-06] MEDS: PIPERACILLIN/TAZOBACTAM 3.375 GM in IV NORMAL SALINE 50ML 50 ML IV SCH (05:35)
[2018-08-06] MEDS: methylPREDNISolone SOD SUCC PF 125 MG/2 ML VIAL. IV SCH ×3 (05:35→22:06)
[2018-08-06] MEDS: INSULIN LISPRO 300 UNITS/3 ML INSULN.PEN. SQ SCH ×3 (05:37→17:39)
--- NOTE | 2018-08-06 07:37 | PDOC ---
Infectious Disease Note Subjective Subjective pt is intubated on vent ROS ROS no n/v/d/fever Vital Sign Vital Signs Vital Signs Date Time Temp Pulse Resp B/P (MAP) Pulse Ox O2 Delivery O2 Flow Rate FiO2 08/06/18 07:00 54 17 125/67 (86) 96 Ventilator 08/06/18 04:00 98.9 98.9 08/06/18 03:19 Physical Exam PHYSICAL EXAM CONSTITUTIONAL: She is intubated. She is lightly sedated. HEENT: Pupils are equal and reactive. NECK: Supple. She has a right IJ without signs of any complications. No JVD. LUNGS: Decreased at bases. HEART: S1, S2, mild tachycardic. ABDOMEN: Obese, soft, nontender, nondistended, positive bowel sounds. King without signs of complications. EXTREMITIES: No clubbing, cyanosis or gross edema. SKIN: Without signs of rash. NEUROLOGIC: She was somewhat alert, moving around a little bit, but she is sedated Labs Lab Laboratory Tests Test 08/05/18 07:35 08/05/18 12:16 08/05/18 18:09 08/05/18 23:28 O2 Saturation 96 % (92-99) Arterial Blood pH 7.48 (7.35-7.45) Arterial Blood pCO2 at Patient Temp 38 mmHg (35-46) Arterial Blood pO2 at Patient Temp 85 mmHg (85-108) Arterial Blood HCO3 28 mmol/L (21-28) Arterial Blood Base Excess 4 mmol/L (-3-3) FiO2 50 Glucose (Fingerstick) 170 mg/dL (70-99) 145 mg/dL (70-99) 128 mg/dL (70-99) Test 08/06/18 04:30 08/06/18 05:33 White Blood Count 9.7 x10^3/uL (4.0-11.0) Red Blood Count 3.85 x10^6/uL (3.50-5.40) Hemoglobin 10.7 g/dL (12.0-15.5) Hematocrit 31.5 % (36.0-47.0) Mean Corpuscular Volume 82 fL (79-100) Mean Corpuscular Hemoglobin 28 pg (25-35) Mean Corpuscular Hemoglobin Concent 34 g/dL (31-37) Red Cell Distribution Width 13.8 % (11.5-14.5) Platelet Count 270 x10^3/uL (140-400) Neutrophils (%) (Auto) 76 % (31-73) Lymphocytes (%) (Auto) 17 % (24-48) Monocytes (%) (Auto) 7 % (0-9) Eosinophils (%) (Auto) 1 % (0-3) Basophils (%) (Auto) 0 % (0-3) Neutrophils # (Auto) 7.4 x10^3uL (1.8-7.7) Lymphocytes # (Auto) 1.6 x10^3/uL (1.0-4.8) Monocytes # (Auto) 0.6 x10^3/uL (0.0-1.1) Eosinophils # (Auto) 0.1 x10^3/uL (0.0-0.7) Basophils # (Auto) 0.0 x10^3/uL (0.0-0.2) Sodium Level 139 mmol/L (136-145) Potassium Level 4.3 mmol/L (3.5-5.1) Chloride Level 104 mmol/L (98-107) Carbon Dioxide Level 30 mmol/L (21-32) Anion Gap 5 (6-14) Blood Urea Nitrogen 15 mg/dL (7-20) Creatinine 0.6 mg/dL (0.6-1.0) Estimated GFR (Cockcroft-Gault) 117.4 Glucose Level 164 mg/dL (70-99) Calcium Level 8.4 mg/dL (8.5-10.1) Glucose (Fingerstick) 169 mg/dL (70-99) Micro Microbiology 07/28/18 Blood Culture - Final, Complete NO GROWTH AFTER 5 DAYS Objective Assessment 1. Leukocytosis, 2. Acute respiratory failure, intubated. 3. Community-acquired pneumonia. Rhino virus + 4. Transaminitis. 5. Morbid obesity. 6. h/o Asthma Plan Plan of Care d/c Zosyn and Azithromycin influenza neg strep antigen/Legionella/Mycoplasma,, neg F/u labs and cults PAULO CHIN MD Aug 06, 2018 07:37
[2018-08-06] MEDS: BUDESONIDE 0.5 MG/2 ML NEBU. NEB SCH ×2 (07:39→19:30)
[2018-08-06] MEDS: IPRATRPIUM/ALBUTEROL 0.5/2.5MG 3 ML NEBU. NEB SCH ×4 (07:39→19:30)
[2018-08-06] MEDS: CHLORHEXIDINE 0.12% 15 ML MOUTHWASH. MM SCH ×2 (07:53→22:06)
[2018-08-06] MEDS: PANTOPRAZOLE IV PUSH 40 MG VIAL. IVP SCH (07:54)
[2018-08-06] MEDS: CITALOPRAM 20 MG TABLET. PO SCH (07:54)
[2018-08-06] MEDS: amLODIPine BESYLATE 2.5 MG TABLET PO SCH (07:54)
--- NOTE | 2018-08-06 08:31 | RAD ---
Portable chest, 08/06/2018: HISTORY: Acute respiratory distress Comparison is made yesterday study. The ET tube tip lies well above the tom. An NG tube extends into the stomach. A right jugular central venous catheter extends into the right atrium. The heart is enlarged and unchanged. The pulmonary vascularity is within normal limits. There is moderate persistent left basilar infiltrate and possible pleural fluid obscuring the hemidiaphragm. There is mild persistent right basilar atelectasis/infiltrate. No new abnormality is seen. IMPRESSION: No significant change since yesterday's study. Electronically signed by: Genaro Moreno MD (08/06/2018 8:28 AM) [facility]
--- NOTE | 2018-08-06 08:36 | PDOC ---
PULMONARY PROGRESS NOTES Subjective patient intubated 07/30 after progressive hypoxia and failed BIPAP 50% FIO2/ PEEP DOWN TO 5 Vitals Vital Signs Date Time Temp Pulse Resp B/P (MAP) Pulse Ox O2 Delivery O2 Flow Rate FiO2 08/06/18 08:00 99.2 77 14 128/73 (91) 97 Ventilator 99.2 08/06/18 03:19 HEENT: Other (nc at perrl. nose throat clear.... neck, no lad, no thyromegaly) Lungs: Crackles Cardiovascular: S1, S2 Abdomen: Soft, Non-tender, Other (no mass) Extremities: Other (trace edema) Skin: Warm Labs Laboratory Tests Test 08/04/18 11:54 08/04/18 17:51 08/04/18 23:44 08/05/18 04:40 Glucose (Fingerstick) 151 mg/dL (70-99) 133 mg/dL (70-99) 133 mg/dL (70-99) White Blood Count 12.0 x10^3/uL (4.0-11.0) Red Blood Count 3.91 x10^6/uL (3.50-5.40) Hemoglobin 10.7 g/dL (12.0-15.5) Hematocrit 32.0 % (36.0-47.0) Mean Corpuscular Volume 82 fL (79-100) Mean Corpuscular Hemoglobin 27 pg (25-35) Mean Corpuscular Hemoglobin Concent 34 g/dL (31-37) Red Cell Distribution Width 13.8 % (11.5-14.5) Platelet Count 294 x10^3/uL (140-400) Neutrophils (%) (Auto) 76 % (31-73) Lymphocytes (%) (Auto) 17 % (24-48) Monocytes (%) (Auto) 6 % (0-9) Eosinophils (%) (Auto) 1 % (0-3) Basophils (%) (Auto) 0 % (0-3) Neutrophils # (Auto) 9.1 x10^3uL (1.8-7.7) Lymphocytes # (Auto) 2.1 x10^3/uL (1.0-4.8) Monocytes # (Auto) 0.7 x10^3/uL (0.0-1.1) Eosinophils # (Auto) 0.2 x10^3/uL (0.0-0.7) Basophils # (Auto) 0.0 x10^3/uL (0.0-0.2) Sodium Level 139 mmol/L (136-145) Potassium Level 4.1 mmol/L (3.5-5.1) Chloride Level 104 mmol/L (98-107) Carbon Dioxide Level 31 mmol/L (21-32) Anion Gap 4 (6-14) Blood Urea Nitrogen 17 mg/dL (7-20) Creatinine 0.6 mg/dL (0.6-1.0) Estimated GFR (Cockcroft-Gault) 117.4 Glucose Level 187 mg/dL (70-99) Calcium Level 8.4 mg/dL (8.5-10.1) Test 08/05/18 06:05 08/05/18 07:35 08/05/18 12:16 08/05/18 18:09 Glucose (Fingerstick) 170 mg/dL (70-99) 170 mg/dL (70-99) 145 mg/dL (70-99) O2 Saturation 96 % (92-99) Arterial Blood pH 7.48 (7.35-7.45) Arterial Blood pCO2 at Patient Temp 38 mmHg (35-46) Arterial Blood pO2 at Patient Temp 85 mmHg (85-108) Arterial Blood HCO3 28 mmol/L (21-28) Arterial Blood Base Excess 4 mmol/L (-3-3) FiO2 50 Test 08/05/18 23:28 08/06/18 04:30 08/06/18 05:33 Glucose (Fingerstick) 128 mg/dL (70-99) 169 mg/dL (70-99) White Blood Count 9.7 x10^3/uL (4.0-11.0) Red Blood Count 3.85 x10^6/uL (3.50-5.40) Hemoglobin 10.7 g/dL (12.0-15.5) Hematocrit 31.5 % (36.0-47.0) Mean Corpuscular Volume 82 fL (79-100) Mean Corpuscular Hemoglobin 28 pg (25-35) Mean Corpuscular Hemoglobin Concent 34 g/dL (31-37) Red Cell Distribution Width 13.8 % (11.5-14.5) Platelet Count 270 x10^3/uL (140-400) Neutrophils (%) (Auto) 76 % (31-73) Lymphocytes (%) (Auto) 17 % (24-48) Monocytes (%) (Auto) 7 % (0-9) Eosinophils (%) (Auto) 1 % (0-3) Basophils (%) (Auto) 0 % (0-3) Neutrophils # (Auto) 7.4 x10^3uL (1.8-7.7) Lymphocytes # (Auto) 1.6 x10^3/uL (1.0-4.8) Monocytes # (Auto) 0.6 x10^3/uL (0.0-1.1) Eosinophils # (Auto) 0.1 x10^3/uL (0.0-0.7) Basophils # (Auto) 0.0 x10^3/uL (0.0-0.2) Sodium Level 139 mmol/L (136-145) Potassium Level 4.3 mmol/L (3.5-5.1) Chloride Level 104 mmol/L (98-107) Carbon Dioxide Level 30 mmol/L (21-32) Anion Gap 5 (6-14) Blood Urea Nitrogen 15 mg/dL (7-20) Creatinine 0.6 mg/dL (0.6-1.0) Estimated GFR (Cockcroft-Gault) 117.4 Glucose Level 164 mg/dL (70-99) Calcium Level 8.4 mg/dL (8.5-10.1) Laboratory Tests Test 08/05/18 12:16 08/05/18 18:09 08/05/18 23:28 08/06/18 04:30 Glucose (Fingerstick) 170 mg/dL (70-99) 145 mg/dL (70-99) 128 mg/dL (70-99) White Blood Count 9.7 x10^3/uL (4.0-11.0) Red Blood Count 3.85 x10^6/uL (3.50-5.40) Hemoglobin 10.7 g/dL (12.0-15.5) Hematocrit 31.5 % (36.0-47.0) Mean Corpuscular Volume 82 fL (79-100) Mean Corpuscular Hemoglobin 28 pg (25-35) Mean Corpuscular Hemoglobin Concent 34 g/dL (31-37) Red Cell Distribution Width 13.8 % (11.5-14.5) Platelet Count 270 x10^3/uL (140-400) Neutrophils (%) (Auto) 76 % (31-73) Lymphocytes (%) (Auto) 17 % (24-48) Monocytes (%) (Auto) 7 % (0-9) Eosinophils (%) (Auto) 1 % (0-3) Basophils (%) (Auto) 0 % (0-3) Neutrophils # (Auto) 7.4 x10^3uL (1.8-7.7) Lymphocytes # (Auto) 1.6 x10^3/uL (1.0-4.8) Monocytes # (Auto) 0.6 x10^3/uL (0.0-1.1) Eosinophils # (Auto) 0.1 x10^3/uL (0.0-0.7) Basophils # (Auto) 0.0 x10^3/uL (0.0-0.2) Sodium Level 139 mmol/L (136-145) Potassium Level 4.3 mmol/L (3.5-5.1) Chloride Level 104 mmol/L (98-107) Carbon Dioxide Level 30 mmol/L (21-32) Anion Gap 5 (6-14) Blood Urea Nitrogen 15 mg/dL (7-20) Creatinine 0.6 mg/dL (0.6-1.0) Estimated GFR (Cockcroft-Gault) 117.4 Glucose Level 164 mg/dL (70-99) Calcium Level 8.4 mg/dL (8.5-10.1) Test 08/06/18 05:33 Glucose (Fingerstick) 169 mg/dL (70-99) Medications Active Scripts Medications Dose Route/Sig Max Daily Dose Days Date Category Dose Instructions Topiramate 25 Mg Tablet 1 Tab PO HS 07/28/18 Reported Phentermine Hcl 37.5 Mg Capsule 1 Cap PO [id number] 07/28/18 Reported Metformin Hcl 500 Mg Tablet 500 Mg PO BIDWMEALS 07/28/18 Reported Motrin Ib (Ibuprofen) 200 Mg Tablet 800 Mg PO Q8H PRN 08/15/17 Rx Tessalon Perle (Benzonatate) 100 Mg Capsule 100 Mg PO TID PRN 01/11/17 Rx Prednisone 20 Mg Tablet 40 Mg PO DAILY 08/06/16 Rx START MEDICATIONS ON 08/07/2016 Medrol (Methylprednisolone) 4 Mg Tab.ds.pk 1 Pkg PO UD 11/16/14 Rx Levaquin (Levofloxacin) 750 Mg Tablet 750 Mg PO DAILY06 11/16/14 Rx Advair 250-50 Diskus (Fluticasone/Salmeterol) 1 Puff Puff 1 Puff INH BID 11/16/14 Rx Escitalopram Oxalate 20 Mg Tablet 1 Tab PO DAILY 11/09/14 Reported Xanax (Alprazolam) 0.25 Mg Tablet 0.25 Mg PO PRN Q6HRS PRN 11/09/14 Reported Impression . 1. Acute respiratory failure requiring mechanical ventilation 07/30. ARDS/ diffuse pneumonia 2. Acute exacerbation of chronic obstructive pulmonary disease with an asthma component. 3. abnl cxr, Diffuse lung infiltrates, suspect diffuse lung pneumonia/ ARDS 4. Morbid obesity, body mass index of 40, prob ji. 5. H/O Anxiety/panic attacks. 6. Status post cholecystectomy. CHEST XRAY Comparison is made to yesterday's study. The ET tube tip lies several centimeters above the tom. An NG tube extends into the stomach. A right jugular central venous catheter extends into the right atrium. The heart is mildly enlarged and unchanged. There are ongoing bibasilar pulmonary infiltrates, left greater than right. There may be pleural fluid inferiorly in the left basilar opacity. No new abnormality is seen. IMPRESSION: 1. Stable tube positions. 2. Unchanged bibasilar pulmonary infiltrates. Plan . CONITNUE THE SAME DECREASE 02 OXYGENATION IS IMPROVING WILL CONTINUE SUPPORT AM TRIAL IF ABG IS ADEQUATE 1. AC mode, DECREASE PEEP IN AM 2. bronchodilators, cont Pulmicort, cont solumedrol to 40 q 8hrs 3. sed rate (43). continue steroids, 4. FOLLOW CXR 5. BS Abx 6. echo reviewed. normal EF/ PA pressures 7. mild diuresis prn 8. enteral nutrition 9. lovenox and protonix for prophylaxis 10. sputum cx CCT 30 MIN DESI HERNÁNDEZ MD Aug 06, 2018 08:36
[2018-08-06 09:12] LABS: BASE EXCESS ABG 3 mmol/L (-3-3); HCO3 ABG 27 mmol/L (21-28); PCO2 ABG 37 mmHg (35-46); PO2 ABG 99 mmHg (85-108); SAT O2 ABG 97 % (92-99)
--- NOTE | 2018-08-06 09:29 | PDOC ---
PROGRESS NOTES Chief Complaint Chief Complaint Acute hypoxic respiratory failure with intubation Sepsis Pneumonia EZ lobe Acute asthma exacerbation Obesity Possible ileus Transaminitis, NOS History of Present Illness History of Present Illness Pt seen and examined in ICU Dw RN Pt sedated on ventilator A/C/18/550/50% w/ 7 PEEP Vitals Vitals Vital Signs Date Time Temp Pulse Resp B/P (MAP) Pulse Ox O2 Delivery O2 Flow Rate FiO2 08/06/18 09:24 20 97 Ventilator 3.0 08/06/18 09:00 56 122/63 (82) 08/06/18 08:00 99.2 99.2 Physical Exam General: No acute distress, Other (sedated on ventilator) Heart: Regular rate, Normal S1, Normal S2 Lungs: Crackles Abdomen: Normal bowel sounds, Soft Extremities: No cyanosis, No edema, Normal pulses Skin: No rashes, No significant lesion Labs LABS Laboratory Tests Test 08/05/18 12:16 08/05/18 18:09 08/05/18 23:28 08/06/18 04:30 Glucose (Fingerstick) 170 mg/dL (70-99) 145 mg/dL (70-99) 128 mg/dL (70-99) White Blood Count 9.7 x10^3/uL (4.0-11.0) Red Blood Count 3.85 x10^6/uL (3.50-5.40) Hemoglobin 10.7 g/dL (12.0-15.5) Hematocrit 31.5 % (36.0-47.0) Mean Corpuscular Volume 82 fL (79-100) Mean Corpuscular Hemoglobin 28 pg (25-35) Mean Corpuscular Hemoglobin Concent 34 g/dL (31-37) Red Cell Distribution Width 13.8 % (11.5-14.5) Platelet Count 270 x10^3/uL (140-400) Neutrophils (%) (Auto) 76 % (31-73) Lymphocytes (%) (Auto) 17 % (24-48) Monocytes (%) (Auto) 7 % (0-9) Eosinophils (%) (Auto) 1 % (0-3) Basophils (%) (Auto) 0 % (0-3) Neutrophils # (Auto) 7.4 x10^3uL (1.8-7.7) Lymphocytes # (Auto) 1.6 x10^3/uL (1.0-4.8) Monocytes # (Auto) 0.6 x10^3/uL (0.0-1.1) Eosinophils # (Auto) 0.1 x10^3/uL (0.0-0.7) Basophils # (Auto) 0.0 x10^3/uL (0.0-0.2) Sodium Level 139 mmol/L (136-145) Potassium Level 4.3 mmol/L (3.5-5.1) Chloride Level 104 mmol/L (98-107) Carbon Dioxide Level 30 mmol/L (21-32) Anion Gap 5 (6-14) Blood Urea Nitrogen 15 mg/dL (7-20) Creatinine 0.6 mg/dL (0.6-1.0) Estimated GFR (Cockcroft-Gault) 117.4 Glucose Level 164 mg/dL (70-99) Calcium Level 8.4 mg/dL (8.5-10.1) Test 08/06/18 05:33 Glucose (Fingerstick) 169 mg/dL (70-99) Review of Systems Review of Systems Pt sedated on ventilator Assessment and Plan Assessmemt and Plan Problems Medical Problems: (1) Pneumonia Status: Acute Acute hypoxic respiratory failure with intubation Sepsis Pneumonia EZ lobe Acute asthma exacerbation Obesity Possible ileus Transaminitis, NOS Plan: ICU monitoring Vent weaning Propofol sedation Abx Labs King to bedside drainage OG feeding Mitts Appreciate subspecialist input Comment Review of Relevant I have reviewed the following items [place] (where applicable) has been applied. Labs Laboratory Tests Test 08/04/18 11:54 08/04/18 17:51 08/04/18 23:44 08/05/18 04:40 Glucose (Fingerstick) 151 mg/dL (70-99) 133 mg/dL (70-99) 133 mg/dL (70-99) White Blood Count 12.0 x10^3/uL (4.0-11.0) Red Blood Count 3.91 x10^6/uL (3.50-5.40) Hemoglobin 10.7 g/dL (12.0-15.5) Hematocrit 32.0 % (36.0-47.0) Mean Corpuscular Volume 82 fL (79-100) Mean Corpuscular Hemoglobin 27 pg (25-35) Mean Corpuscular Hemoglobin Concent 34 g/dL (31-37) Red Cell Distribution Width 13.8 % (11.5-14.5) Platelet Count 294 x10^3/uL (140-400) Neutrophils (%) (Auto) 76 % (31-73) Lymphocytes (%) (Auto) 17 % (24-48) Monocytes (%) (Auto) 6 % (0-9) Eosinophils (%) (Auto) 1 % (0-3) Basophils (%) (Auto) 0 % (0-3) Neutrophils # (Auto) 9.1 x10^3uL (1.8-7.7) Lymphocytes # (Auto) 2.1 x10^3/uL (1.0-4.8) Monocytes # (Auto) 0.7 x10^3/uL (0.0-1.1) Eosinophils # (Auto) 0.2 x10^3/uL (0.0-0.7) Basophils # (Auto) 0.0 x10^3/uL (0.0-0.2) Sodium Level 139 mmol/L (136-145) Potassium Level 4.1 mmol/L (3.5-5.1) Chloride Level 104 mmol/L (98-107) Carbon Dioxide Level 31 mmol/L (21-32) Anion Gap 4 (6-14) Blood Urea Nitrogen 17 mg/dL (7-20) Creatinine 0.6 mg/dL (0.6-1.0) Estimated GFR (Cockcroft-Gault) 117.4 Glucose Level 187 mg/dL (70-99) Calcium Level 8.4 mg/dL (8.5-10.1) Test 08/05/18 06:05 08/05/18 07:35 08/05/18 12:16 08/05/18 18:09 Glucose (Fingerstick) 170 mg/dL (70-99) 170 mg/dL (70-99) 145 mg/dL (70-99) O2 Saturation 96 % (92-99) Arterial Blood pH 7.48 (7.35-7.45) Arterial Blood pCO2 at Patient Temp 38 mmHg (35-46) Arterial Blood pO2 at Patient Temp 85 mmHg (85-108) Arterial Blood HCO3 28 mmol/L (21-28) Arterial Blood Base Excess 4 mmol/L (-3-3) FiO2 50 Test 08/05/18 23:28 08/06/18 04:30 08/06/18 05:33 Glucose (Fingerstick) 128 mg/dL (70-99) 169 mg/dL (70-99) White Blood Count 9.7 x10^3/uL (4.0-11.0) Red Blood Count 3.85 x10^6/uL (3.50-5.40) Hemoglobin 10.7 g/dL (12.0-15.5) Hematocrit 31.5 % (36.0-47.0) Mean Corpuscular Volume 82 fL (79-100) Mean Corpuscular Hemoglobin 28 pg (25-35) Mean Corpuscular Hemoglobin Concent 34 g/dL (31-37) Red Cell Distribution Width 13.8 % (11.5-14.5) Platelet Count 270 x10^3/uL (140-400) Neutrophils (%) (Auto) 76 % (31-73) Lymphocytes (%) (Auto) 17 % (24-48) Monocytes (%) (Auto) 7 % (0-9) Eosinophils (%) (Auto) 1 % (0-3) Basophils (%) (Auto) 0 % (0-3) Neutrophils # (Auto) 7.4 x10^3uL (1.8-7.7) Lymphocytes # (Auto) 1.6 x10^3/uL (1.0-4.8) Monocytes # (Auto) 0.6 x10^3/uL (0.0-1.1) Eosinophils # (Auto) 0.1 x10^3/uL (0.0-0.7) Basophils # (Auto) 0.0 x10^3/uL (0.0-0.2) Sodium Level 139 mmol/L (136-145) Potassium Level 4.3 mmol/L (3.5-5.1) Chloride Level 104 mmol/L (98-107) Carbon Dioxide Level 30 mmol/L (21-32) Anion Gap 5 (6-14) Blood Urea Nitrogen 15 mg/dL (7-20) Creatinine 0.6 mg/dL (0.6-1.0) Estimated GFR (Cockcroft-Gault) 117.4 Glucose Level 164 mg/dL (70-99) Calcium Level 8.4 mg/dL (8.5-10.1) Laboratory Tests Test 08/05/18 12:16 08/05/18 18:09 08/05/18 23:28 08/06/18 04:30 Glucose (Fingerstick) 170 mg/dL (70-99) 145 mg/dL (70-99) 128 mg/dL (70-99) White Blood Count 9.7 x10^3/uL (4.0-11.0) Red Blood Count 3.85 x10^6/uL (3.50-5.40) Hemoglobin 10.7 g/dL (12.0-15.5) Hematocrit 31.5 % (36.0-47.0) Mean Corpuscular Volume 82 fL (79-100) Mean Corpuscular Hemoglobin 28 pg (25-35) Mean Corpuscular Hemoglobin Concent 34 g/dL (31-37) Red Cell Distribution Width 13.8 % (11.5-14.5) Platelet Count 270 x10^3/uL (140-400) Neutrophils (%) (Auto) 76 % (31-73) Lymphocytes (%) (Auto) 17 % (24-48) Monocytes (%) (Auto) 7 % (0-9) Eosinophils (%) (Auto) 1 % (0-3) Basophils (%) (Auto) 0 % (0-3) Neutrophils # (Auto) 7.4 x10^3uL (1.8-7.7) Lymphocytes # (Auto) 1.6 x10^3/uL (1.0-4.8) Monocytes # (Auto) 0.6 x10^3/uL (0.0-1.1) Eosinophils # (Auto) 0.1 x10^3/uL (0.0-0.7) Basophils # (Auto) 0.0 x10^3/uL (0.0-0.2) Sodium Level 139 mmol/L (136-145) Potassium Level 4.3 mmol/L (3.5-5.1) Chloride Level 104 mmol/L (98-107) Carbon Dioxide Level 30 mmol/L (21-32) Anion Gap 5 (6-14) Blood Urea Nitrogen 15 mg/dL (7-20) Creatinine 0.6 mg/dL (0.6-1.0) Estimated GFR (Cockcroft-Gault) 117.4 Glucose Level 164 mg/dL (70-99) Calcium Level 8.4 mg/dL (8.5-10.1) Test 08/06/18 05:33 Glucose (Fingerstick) 169 mg/dL (70-99) Microbiology 07/28/18 Blood Culture - Final, Complete NO GROWTH AFTER 5 DAYS 08/04/18 - Final, Resulted 08/04/18 - Final, Resulted 08/04/18 , Resulted Pending 08/04/18 Gram Stain Evaluation - Final, Resulted 08/04/18 Sputum Culture, Resulted Pending Medications Current Medications Prednisone (Prednisone) 50 mg 1X ONCE PO Last administered on 07/28/18at 06:47; Start 07/28/18 at 07:00; Stop 07/28/18 at 07:01; Status DC Albuterol/ Ipratropium (Duoneb) 3 ml 1X ONCE NEB Last administered on at 06:37; Start 07/28/18 at 07:00; Stop 07/28/18 at 07:01; Status DC Sodium Chloride 1,000 ml @ 1,000 mls/hr 1X ONCE IV Last administered on at 07:03; Start 07/28/18 at 07:00; Stop 07/28/18 at 07:59; Status DC Albuterol Sulfate (Ventolin Neb Soln) 10 mg 1X ONCE CONT NEB Last administered on 07/28/18at 07:25; Start 07/28/18 at 07:00; Stop 07/28/18 at 07:02; Status DC Magnesium Sulfate 50 ml @ 25 mls/hr 1X ONCE IV Last administered on 07/28/18at 07:41; Start 07/28/18 at 07:15; Stop 07/28/18 at 09:14; Status DC Ceftriaxone Sodium 50 ml @ 100 mls/hr 1X ONCE IV Last administered on at 08:52; Start 07/28/18 at 08:15; Stop 07/28/18 at 08:44; Status DC Azithromycin 250 ml @ 250 mls/hr 1X ONCE IV Last administered on 07/28/18at 09: 20; Start 07/28/18 at 08:15; Stop 07/28/18 at 09:14; Status DC Acetaminophen/ Hydrocodone Bitart (Lortab 5/325) 2 tab 1X ONCE PO Last administered on 07/28/18at 08:49; Start 07/28/18 at 08:45; Stop 07/28/18 at 08:46; Status DC Ondansetron HCl (Zofran) 4 mg PRN Q8HRS PRN IV NAUSEA/VOMITING Last administered on 07/28/18at 22:40; Start 07/28/18 at 08:45; Stop 07/29/18 at 08:44; Status DC Acetaminophen (Tylenol) 650 mg PRN Q4HRS PRN PO FEVER Last administered on at 22:40; Start 07/28/18 at 08:45; Stop 07/29/18 at 08:44; Status DC Albuterol/ Ipratropium (Duoneb) 3 ml RTQID NEB Last administered on 07/29/18at 07 :29; Start 07/28/18 at 12:00; Stop 07/29/18 at 10:30; Status DC Acetaminophen/ Hydrocodone Bitart (Lortab 5/325) 2 tab Q6H PRN PO MODERATE- SEVERE PAIN Last administered on 07/29/18at 23:09; Start 07/28/18 at 08:45 Prednisone (Prednisone) 60 mg DAILY PO ; Start 07/29/18 at 09:00; Stop 07/29/18 at 09:00; Status DC Budesonide (Pulmicort) 0.5 mg RTBID NEB Last administered on 08/06/18at 07:39; Start 07/28/18 at 20:00 Budesonide (Pulmicort) 0.5 mg 1X ONCE NEB Last administered on 07/28/18at 11:06 ; Start 07/28/18 at 09:30; Stop 07/28/18 at 09:31; Status DC Albuterol Sulfate (Ventolin Neb Soln) 2.5 mg PRN Q4HRS PRN NEB SHORTNESS OF BREATH; Start 07/28/18 at 09:30 Azithromycin (Zithromax) 250 mg DAILY PO Last administered on 08/01/18at 08:54; Start 07/28/18 at 10:00; Stop 08/01/18 at 09:01; Status DC Alprazolam (Xanax) 0.25 mg PRN Q6HRS PRN PO ANXIETY / AGITATION Last administered on 07/29/18at 23:13; Start 07/28/18 at 12:45 Ibuprofen (Motrin) 800 mg PRN Q8HRS PRN PO PAIN MILD/INFLAMMATION; Start at 12:45 Benzonatate (Tessalon Perle) 100 mg PRN TID PRN PO COUGH 2ND CHOICE; Start 07/28 at 14:00 Citalopram Hydrobromide (CeleXA) 40 mg DAILY PO Last administered on 08/06/18at 07:54; Start 07/28/18 at 13:00 Metformin HCl (Glucophage) 500 mg BIDWMEALS PO Last administered on 07/29/18at 10 :07; Start 07/28/18 at 17:00; Stop 07/31/18 at 08:58; Status DC Promethazine HCl/ Codeine (Phenergan With Codeine) 5 ml PRN Q6HRS PRN PO COUGH 1ST CHOICE Last administered on 07/29/18at 16:25; Start 07/28/18 at 15:30 Guaifenesin (MUCINEX ER with DM) 1 tab BID PO Last administered on 07/30/18at 20: 57; Start 07/28/18 at 21:00; Stop 07/31/18 at 09:47; Status DC Lactobacillus Rhamnosus (Culturelle) 1 cap BID PO Last administered on at 21:44; Start 07/28/18 at 21:00; Stop 07/30/18 at 09:48; Status DC Prednisone (Prednisone) 30 mg DAILY PO Last administered on 07/29/18at 10:06; Start 07/29/18 at 09:00; Stop 07/31/18 at 08:58; Status DC Ceftriaxone Sodium 1 gm/ Dextrose 50 ml @ 100 mls/hr Q24H IV ; Start 07/29/18 at 09:00; Status UNV Ceftriaxone Sodium (Rocephin) 1 gm Q24H IVP Last administered on 07/29/18at 10:06 ; Start 07/29/18 at 09:00; Stop 07/30/18 at 10:07; Status DC Albuterol/ Ipratropium (Duoneb) 3 ml Q4HRS NEB Last administered on 08/02/18at 08 :40; Start 07/29/18 at 12:00; Stop 08/02/18 at 09:31; Status DC Budesonide (Pulmicort) 0.5 mg RTBID NEB ; Start 07/29/18 at 20:00; Status UNV Famotidine (Pepcid) 20 mg QHS PO Last administered on 07/29/18at 21:44; Start 07/29/18 at 21:00; Stop 07/30/18 at 10:10; Status DC Enoxaparin Sodium (Lovenox 40mg Syringe) 40 mg Q12H SQ Last administered on 11/11at 00:09; Start 07/29/18 at 12:30 Acetaminophen (Tylenol) 650 mg PRN Q6HRS PRN PO FEVER; Start 07/29/18 at 11:45 Ondansetron HCl (Zofran) 4 mg PRN Q6HRS PRN IV NAUSEA/VOMITING Last administered on 07/29/18at 15:23; Start 07/29/18 at 11:45 Morphine Sulfate (Morphine Sulfate) 2 mg PRN Q2HR PRN IV MODERATE TO SEVERE PAIN; Start 07/29/18 at 11:45 Tramadol HCl (Ultram) 50 mg PRN Q6HRS PRN PO MODERATE PAIN; Start 07/29/18 at 11 :45 Docusate Sodium (Colace) 100 mg PRN DAILY PRN PO CONSTIPATION; Start 07/29/18 at 11:45 Haloperidol Lactate (Haldol Inj) 2 mg PRN Q2HR PRN IVP AGITATION 2ND CHOICE Last administered on 08/01/18at 15:48; Start 07/30/18 at 01:30 Lorazepam (Ativan) 0.25 mg PRN Q1HR PRN IV ANXIETY/AGITATION 1ST CHOICE Last administered on 08/06/18at 07:54; Start 07/30/18 at 01:30 Propofol 100 ml @ As Directed STK-MED ONCE IV ; Start 07/30/18 at 04:12; Stop at 04:13; Status DC Etomidate (Amidate) 20 mg STK-MED ONCE IV ; Start 07/30/18 at 04:18; Stop at 04:19; Status DC Propofol 100 ml @ 0 mls/hr CONT PRN IV PER PROTOCOL Last administered on at 08:21; Start 07/30/18 at 04:30 Chlorhexidine Gluconate (Peridex) 15 ml BID MM Last administered on 08/06/18at 07:53; Start 07/30/18 at 09:00 Midazolam HCl 100 ml @ 0 mls/hr CONT PRN IV PER PROTOCOL Last administered on at 19:14; Start 07/30/18 at 04:30 Piperacillin Sod/ Tazobactam Sod (Zosyn Per Pharmacy) 1 each PRN DAILY PRN MC SEE COMMENTS; Start 07/30/18 at 10:00; Status Cancel Vancomycin HCl (Vanco Per Pharmacy) 1 each PRN DAILY PRN MC SEE COMMENTS Last administered on 08/03/18at 08:31; Start 07/30/18 at 10:00; Stop 08/03/18 at 12:30; Status DC Methylprednisolone Sodium Succinate (SOLU-Medrol 125MG VIAL) 60 mg Q8HRS IV Last administered on 08/03/18at 05:49; Start 07/30/18 at 14:00; Stop 08/03/18 at 06: 32; Status DC Pantoprazole Sodium (PROTONIX VIAL for IV PUSH) 40 mg DAILYAC IVP Last administered on 08/06/18at 07:54; Start 07/30/18 at 10:30 Piperacillin Sod/ Tazobactam Sod 3.375 gm/Sodium Chloride 50 ml @ 100 mls/hr Q6HRS IV Last administered on 08/06/18at 05:35; Start 07/30/18 at 12:00; Stop 11/11 at 07:38; Status DC Vancomycin HCl 2 gm/Sodium Chloride 500 ml @ 250 mls/hr 1X ONCE IV Last administered on 07/30/18at 10:31; Start 07/30/18 at 10:30; Stop 07/30/18 at 12:29; Status DC Vancomycin HCl 1.5 gm/Sodium Chloride 500 ml @ 250 mls/hr Q8H IV Last administered on 07/31/18at 14:10; Start 07/30/18 at 18:30; Stop 07/31/18 at 17:00; Status DC Vancomycin HCl (Vancomycin Trough Level) 1 each 1X ONCE MC Last administered on 07/31/18at 13:30; Start 07/31/18 at 13:30; Stop 07/31/18 at 13:31; Status DC Insulin Human Lispro (HumaLOG) 0-7 UNITS TIDWMEALS SQ ; Start 07/31/18 at 08:00; Stop 07/31/18 at 09:04; Status DC Dextrose (Dextrose 50%-Water Syringe) 12.5 gm PRN Q15MIN PRN IV SEE COMMENTS; Start 07/30/18 at 17:45 Insulin Human Lispro (HumaLOG) 0-7 UNITS Q6HRS SQ Last administered on at 05:37; Start 07/31/18 at 12:00 Vancomycin HCl 1.75 gm/Sodium Chloride 500 ml @ 250 mls/hr Q8H IV Last administered on 08/01/18at 13:48; Start 07/31/18 at 22:00; Stop 08/01/18 at 22:01; Status DC Vancomycin HCl (Vancomycin Trough Level) 1 each 1X ONCE MC Last administered on 08/01/18at 21:01; Start 08/01/18 at 21:30; Stop 08/01/18 at 21:31; Status DC Erythromycin Ethylsuccinate (E.e.s. 200) 200 mg 1X ONCE PEG Last administered on 08/01/18at 12:19; Start 08/01/18 at 13:00; Stop 08/01/18 at 13:01; Status DC Vancomycin HCl 2 gm/Sodium Chloride 500 ml @ 250 mls/hr Q8H IV Last administered on 08/02/18at 22:56; Start 08/01/18 at 22:00; Stop 08/02/18 at 22:59; Status DC Vancomycin HCl (Vancomycin Trough Level) 1 each 1X ONCE MC Last administered on 08/02/18at 21:30; Start 08/02/18 at 21:30; Stop 08/02/18 at 21:31; Status DC Fentanyl Citrate 30 ml @ 0 mls/hr CONT PRN IV PER PROTOCOL Last administered on 08/06/18at 09:24; Start 08/02/18 at 07:00 Enalaprilat (Vasotec Inj) 1.25 mg PRN Q6HRS PRN IVP HYPERTENSION, SEE COMMENTS ; Start 08/02/18 at 09:15 Amlodipine Besylate (Norvasc) 2.5 mg DAILY PO Last administered on 08/06/18at 07 :54; Start 08/02/18 at 10:00 Albuterol/ Ipratropium (Duoneb) 3 ml RTQID NEB Last administered on 08/06/18at 07:39; Start 08/02/18 at 12:00 Vancomycin HCl 1.75 gm/Sodium Chloride 500 ml @ 250 mls/hr Q6H IV Last administered on 08/03/18at 05:53; Start 08/03/18 at 05:00; Stop 08/03/18 at 08:23; Status DC Vancomycin HCl (Vancomycin Trough Level) 1 each 1X ONCE MC ; Start 08/03/18 at 22:30; Stop 08/03/18 at 22:31; Status Cancel Methylprednisolone Sodium Succinate (SOLU-Medrol 125MG VIAL) 40 mg Q8HRS IV Last administered on 08/06/18at 05:35; Start 08/03/18 at 14:00 Vancomycin HCl 2 gm/Sodium Chloride 500 ml @ 250 mls/hr Q8H IV ; Start 08/03/18 at 14:00; Stop 08/03/18 at 14:00; Status DC Azithromycin 500 mg/Sodium Chloride 250 ml @ 250 mls/hr Q24H IV Last administered on 08/05/18at 13:08; Start 08/03/18 at 13:00; Stop 08/06/18 at 07:38 ; Status DC Active Scripts Active Motrin Ib (Ibuprofen) 200 Mg Tablet 800 Mg PO Q8H PRN Tessalon Perle (Benzonatate) 100 Mg Capsule 100 Mg PO TID PRN Prednisone 20 Mg Tablet 40 Mg PO DAILY START MEDICATIONS ON 08/07/2016 Medrol (Methylprednisolone) 4 Mg Tab.ds.pk 1 Pkg PO UD Levaquin (Levofloxacin) 750 Mg Tablet 750 Mg PO DAILY06 Advair 250-50 Diskus (Fluticasone/Salmeterol) 1 Puff Puff 1 Puff INH BID Reported Topiramate 25 Mg Tablet 1 Tab PO HS Phentermine Hcl 37.5 Mg Capsule 1 Cap PO DAILYWBKFT Metformin Hcl 500 Mg Tablet 500 Mg PO BIDWMEALS Escitalopram Oxalate 20 Mg Tablet 1 Tab PO DAILY Xanax (Alprazolam) 0.25 Mg Tablet 0.25 Mg PO PRN Q6HRS PRN Vitals/I & O Vital Sign - Last 24 Hours 08/05/18 08/05/18 08/05/18 08/05/18 10:21 11:02 11:20 12:00 Temp 98.7 98.7 Pulse 54 56 78 Resp 18 18 18 B/P (MAP) 116/66 (83) 119/61 (80) 118/59 (78) Pulse Ox 96 96 96 95 O2 Delivery Ventilator Ventilator Ventilator Ventilator 08/05/18 08/05/18 08/05/18 08/05/18 12:00 13:00 13:06 13:16 Pulse 69 Resp 18 B/P (MAP) 129/66 (87) Pulse Ox 95 95 O2 Delivery Mechanical Ventilator Ventilator Ventilator Ventilator 08/05/18 08/05/18 08/05/18 08/05/18 14:00 14:20 15:00 15:32 Pulse 68 59 Resp 18 18 B/P (MAP) 111/61 (78) 112/64 (80) Pulse Ox 96 96 96 O2 Delivery Ventilator Ventilator Ventilator O2 Flow Rate 3.0 08/05/18 08/05/18 08/05/18 08/05/18 16:00 16:00 17:00 17:05 Temp 99.2 99.2 Pulse 60 54 Resp 18 18 B/P (MAP) 117/69 (85) 123/69 (87) Pulse Ox 94 96 95 O2 Delivery Mechanical Ventilator Ventilator Ventilator Ventilator 08/05/18 08/05/18 08/05/18 08/05/18 18:00 18:06 19:00 19:34 Pulse 48 53 Resp 18 18 18 B/P (MAP) 120/69 (86) 128/70 (89) Pulse Ox 97 96 96 O2 Delivery Ventilator Ventilator Ventilator Ventilator 08/05/18 08/05/18 08/05/18 08/05/18 19:35 20:00 21:00 21:10 Temp 98.9 98.9 Pulse 73 90 Resp 18 21 B/P (MAP) 129/72 (91) 138/70 (92) Pulse Ox 93 95 95 O2 Delivery Mechanical Ventilator Ventilator Ventilator Ventilator 08/05/18 08/05/18 08/05/18 08/05/18 22:00 23:00 23:17 23:33 Pulse 50 52 Resp 23 18 18 B/P (MAP) 106/64 (78) 112/66 (81) Pulse Ox 97 97 97 97 O2 Delivery Ventilator Ventilator Ventilator Ventilator 08/05/18 08/06/18 08/06/18 08/06/18 23:45 00:00 00:54 01:00 Temp 99.1 99.1 Pulse 64 57 Resp 19 18 B/P (MAP) 125/60 (81) 130/65 (86) Pulse Ox 96 95 96 O2 Delivery Mechanical Ventilator Ventilator Ventilator Ventilator 08/06/18 08/06/18 08/06/18 08/06/18 02:00 02:53 03:00 03:19 Pulse 54 56 Resp 18 18 B/P (MAP) 123/71 (88) 131/59 (83) Pulse Ox 97 97 97 O2 Delivery Ventilator Ventilator Ventilator O2 Flow Rate 08/06/18 08/06/18 08/06/18 08/06/18 03:55 04:00 05:00 05:09 Temp 98.9 98.9 Pulse 51 54 Resp 18 18 18 B/P (MAP) 132/64 (86) 134/66 (88) Pulse Ox 97 96 96 O2 Delivery Mechanical Ventilator Ventilator Ventilator Ventilator 08/06/18 08/06/18 08/06/18 08/06/18 05:39 05:40 06:00 07:00 Pulse 59 54 Resp 18 18 17 B/P (MAP) 135/63 (87) 125/67 (86) Pulse Ox 95 97 95 96 O2 Delivery Ventilator Ventilator Ventilator Ventilator 08/06/18 08/06/18 08/06/18 08/06/18 07:39 07:54 08:00 08:00 Temp 99.2 99.2 Pulse 85 77 Resp 14 B/P (MAP) 125/67 128/73 (91) Pulse Ox 96 97 O2 Delivery Ventilator Mechanical Ventilator Ventilator 08/06/18 08/06/18 09:00 09:24 Pulse 56 Resp 19 20 B/P (MAP) 122/63 (82) Pulse Ox 97 97 O2 Delivery Ventilator Ventilator O2 Flow Rate 3.0 Intake and Output 08/05/18 08/05/18 08/06/18 15:00 23:00 07:00 Intake Total 610 ml 1840.47 ml 1847 ml Output Total 1860 ml 2760 ml 1830 ml Balance -1250 ml -919.53 ml 17 ml CASTRODY,NIAL K III DO Aug 06, 2018 09:29
[2018-08-06 09:31] LABS: FIO2 ABG 50
--- NOTE | 2018-08-06 10:06 | PDOC ---
G I PROGRESS NOTE Subjective Intubated/sedated. Objective No reports of any GI issues. Physical Exam Lungs clear anteriorly. RRR Abdomen soft, not distended. Review of Relevant I have reviewed the following items [place] (where applicable) has been applied. Labs Laboratory Tests Test 08/04/18 11:54 08/04/18 17:51 08/04/18 23:44 08/05/18 04:40 Glucose (Fingerstick) 151 mg/dL (70-99) 133 mg/dL (70-99) 133 mg/dL (70-99) White Blood Count 12.0 x10^3/uL (4.0-11.0) Red Blood Count 3.91 x10^6/uL (3.50-5.40) Hemoglobin 10.7 g/dL (12.0-15.5) Hematocrit 32.0 % (36.0-47.0) Mean Corpuscular Volume 82 fL (79-100) Mean Corpuscular Hemoglobin 27 pg (25-35) Mean Corpuscular Hemoglobin Concent 34 g/dL (31-37) Red Cell Distribution Width 13.8 % (11.5-14.5) Platelet Count 294 x10^3/uL (140-400) Neutrophils (%) (Auto) 76 % (31-73) Lymphocytes (%) (Auto) 17 % (24-48) Monocytes (%) (Auto) 6 % (0-9) Eosinophils (%) (Auto) 1 % (0-3) Basophils (%) (Auto) 0 % (0-3) Neutrophils # (Auto) 9.1 x10^3uL (1.8-7.7) Lymphocytes # (Auto) 2.1 x10^3/uL (1.0-4.8) Monocytes # (Auto) 0.7 x10^3/uL (0.0-1.1) Eosinophils # (Auto) 0.2 x10^3/uL (0.0-0.7) Basophils # (Auto) 0.0 x10^3/uL (0.0-0.2) Sodium Level 139 mmol/L (136-145) Potassium Level 4.1 mmol/L (3.5-5.1) Chloride Level 104 mmol/L (98-107) Carbon Dioxide Level 31 mmol/L (21-32) Anion Gap 4 (6-14) Blood Urea Nitrogen 17 mg/dL (7-20) Creatinine 0.6 mg/dL (0.6-1.0) Estimated GFR (Cockcroft-Gault) 117.4 Glucose Level 187 mg/dL (70-99) Calcium Level 8.4 mg/dL (8.5-10.1) Test 08/05/18 06:05 08/05/18 07:35 08/05/18 12:16 08/05/18 18:09 Glucose (Fingerstick) 170 mg/dL (70-99) 170 mg/dL (70-99) 145 mg/dL (70-99) O2 Saturation 96 % (92-99) Arterial Blood pH 7.48 (7.35-7.45) Arterial Blood pCO2 at Patient Temp 38 mmHg (35-46) Arterial Blood pO2 at Patient Temp 85 mmHg (85-108) Arterial Blood HCO3 28 mmol/L (21-28) Arterial Blood Base Excess 4 mmol/L (-3-3) FiO2 50 Test 08/05/18 23:28 08/06/18 04:30 08/06/18 05:33 08/06/18 08:45 Glucose (Fingerstick) 128 mg/dL (70-99) 169 mg/dL (70-99) White Blood Count 9.7 x10^3/uL (4.0-11.0) Red Blood Count 3.85 x10^6/uL (3.50-5.40) Hemoglobin 10.7 g/dL (12.0-15.5) Hematocrit 31.5 % (36.0-47.0) Mean Corpuscular Volume 82 fL (79-100) Mean Corpuscular Hemoglobin 28 pg (25-35) Mean Corpuscular Hemoglobin Concent 34 g/dL (31-37) Red Cell Distribution Width 13.8 % (11.5-14.5) Platelet Count 270 x10^3/uL (140-400) Neutrophils (%) (Auto) 76 % (31-73) Lymphocytes (%) (Auto) 17 % (24-48) Monocytes (%) (Auto) 7 % (0-9) Eosinophils (%) (Auto) 1 % (0-3) Basophils (%) (Auto) 0 % (0-3) Neutrophils # (Auto) 7.4 x10^3uL (1.8-7.7) Lymphocytes # (Auto) 1.6 x10^3/uL (1.0-4.8) Monocytes # (Auto) 0.6 x10^3/uL (0.0-1.1) Eosinophils # (Auto) 0.1 x10^3/uL (0.0-0.7) Basophils # (Auto) 0.0 x10^3/uL (0.0-0.2) Sodium Level 139 mmol/L (136-145) Potassium Level 4.3 mmol/L (3.5-5.1) Chloride Level 104 mmol/L (98-107) Carbon Dioxide Level 30 mmol/L (21-32) Anion Gap 5 (6-14) Blood Urea Nitrogen 15 mg/dL (7-20) Creatinine 0.6 mg/dL (0.6-1.0) Estimated GFR (Cockcroft-Gault) 117.4 Glucose Level 164 mg/dL (70-99) Calcium Level 8.4 mg/dL (8.5-10.1) O2 Saturation 97 % (92-99) Arterial Blood pH 7.48 (7.35-7.45) Arterial Blood pCO2 at Patient Temp 37 mmHg (35-46) Arterial Blood pO2 at Patient Temp 99 mmHg (85-108) Arterial Blood HCO3 27 mmol/L (21-28) Arterial Blood Base Excess 3 mmol/L (-3-3) FiO2 50 Laboratory Tests Test 08/05/18 12:16 08/05/18 18:09 08/05/18 23:28 08/06/18 04:30 Glucose (Fingerstick) 170 mg/dL (70-99) 145 mg/dL (70-99) 128 mg/dL (70-99) White Blood Count 9.7 x10^3/uL (4.0-11.0) Red Blood Count 3.85 x10^6/uL (3.50-5.40) Hemoglobin 10.7 g/dL (12.0-15.5) Hematocrit 31.5 % (36.0-47.0) Mean Corpuscular Volume 82 fL (79-100) Mean Corpuscular Hemoglobin 28 pg (25-35) Mean Corpuscular Hemoglobin Concent 34 g/dL (31-37) Red Cell Distribution Width 13.8 % (11.5-14.5) Platelet Count 270 x10^3/uL (140-400) Neutrophils (%) (Auto) 76 % (31-73) Lymphocytes (%) (Auto) 17 % (24-48) Monocytes (%) (Auto) 7 % (0-9) Eosinophils (%) (Auto) 1 % (0-3) Basophils (%) (Auto) 0 % (0-3) Neutrophils # (Auto) 7.4 x10^3uL (1.8-7.7) Lymphocytes # (Auto) 1.6 x10^3/uL (1.0-4.8) Monocytes # (Auto) 0.6 x10^3/uL (0.0-1.1) Eosinophils # (Auto) 0.1 x10^3/uL (0.0-0.7) Basophils # (Auto) 0.0 x10^3/uL (0.0-0.2) Sodium Level 139 mmol/L (136-145) Potassium Level 4.3 mmol/L (3.5-5.1) Chloride Level 104 mmol/L (98-107) Carbon Dioxide Level 30 mmol/L (21-32) Anion Gap 5 (6-14) Blood Urea Nitrogen 15 mg/dL (7-20) Creatinine 0.6 mg/dL (0.6-1.0) Estimated GFR (Cockcroft-Gault) 117.4 Glucose Level 164 mg/dL (70-99) Calcium Level 8.4 mg/dL (8.5-10.1) Test 08/06/18 05:33 08/06/18 08:45 Glucose (Fingerstick) 169 mg/dL (70-99) O2 Saturation 97 % (92-99) Arterial Blood pH 7.48 (7.35-7.45) Arterial Blood pCO2 at Patient Temp 37 mmHg (35-46) Arterial Blood pO2 at Patient Temp 99 mmHg (85-108) Arterial Blood HCO3 27 mmol/L (21-28) Arterial Blood Base Excess 3 mmol/L (-3-3) FiO2 50 Microbiology 07/28/18 Blood Culture - Final, Complete NO GROWTH AFTER 5 DAYS 08/04/18 - Final, Resulted 08/04/18 - Final, Resulted 08/04/18 , Resulted Pending 08/04/18 Gram Stain Evaluation - Final, Resulted 08/04/18 Sputum Culture, Resulted Pending Vitals/I & O Vital Sign - Last 24 Hours 08/05/18 08/05/18 08/05/18 08/05/18 10:21 11:02 11:20 12:00 Temp 98.7 98.7 Pulse 54 56 78 Resp 18 18 18 B/P (MAP) 116/66 (83) 119/61 (80) 118/59 (78) Pulse Ox 96 96 96 95 O2 Delivery Ventilator Ventilator Ventilator Ventilator 08/05/18 08/05/18 08/05/18 08/05/18 12:00 13:00 13:06 13:16 Pulse 69 Resp 18 B/P (MAP) 129/66 (87) Pulse Ox 95 95 O2 Delivery Mechanical Ventilator Ventilator Ventilator Ventilator 08/05/18 08/05/18 08/05/18 08/05/18 14:00 14:20 15:00 15:32 Pulse 68 59 Resp 18 18 B/P (MAP) 111/61 (78) 112/64 (80) Pulse Ox 96 96 96 O2 Delivery Ventilator Ventilator Ventilator O2 Flow Rate 3.0 08/05/18 08/05/18 08/05/18 08/05/18 16:00 16:00 17:00 17:05 Temp 99.2 99.2 Pulse 60 54 Resp 18 18 B/P (MAP) 117/69 (85) 123/69 (87) Pulse Ox 94 96 95 O2 Delivery Mechanical Ventilator Ventilator Ventilator Ventilator 08/05/18 08/05/18 08/05/18 08/05/18 18:00 18:06 19:00 19:34 Pulse 48 53 Resp 18 18 18 B/P (MAP) 120/69 (86) 128/70 (89) Pulse Ox 97 96 96 O2 Delivery Ventilator Ventilator Ventilator Ventilator 08/05/18 08/05/18 08/05/18 08/05/18 19:35 20:00 21:00 21:10 Temp 98.9 98.9 Pulse 73 90 Resp 18 21 B/P (MAP) 129/72 (91) 138/70 (92) Pulse Ox 93 95 95 O2 Delivery Mechanical Ventilator Ventilator Ventilator Ventilator 08/05/18 08/05/18 08/05/18 08/05/18 22:00 23:00 23:17 23:33 Pulse 50 52 Resp 23 18 18 B/P (MAP) 106/64 (78) 112/66 (81) Pulse Ox 97 97 97 97 O2 Delivery Ventilator Ventilator Ventilator Ventilator 08/05/18 08/06/18 08/06/18 08/06/18 23:45 00:00 00:54 01:00 Temp 99.1 99.1 Pulse 64 57 Resp 19 18 B/P (MAP) 125/60 (81) 130/65 (86) Pulse Ox 96 95 96 O2 Delivery Mechanical Ventilator Ventilator Ventilator Ventilator 08/06/18 08/06/18 08/06/18 08/06/18 02:00 02:53 03:00 03:19 Pulse 54 56 Resp 18 18 B/P (MAP) 123/71 (88) 131/59 (83) Pulse Ox 97 97 97 O2 Delivery Ventilator Ventilator Ventilator O2 Flow Rate 08/06/18 08/06/18 08/06/18 08/06/18 03:55 04:00 05:00 05:09 Temp 98.9 98.9 Pulse 51 54 Resp 18 18 18 B/P (MAP) 132/64 (86) 134/66 (88) Pulse Ox 97 96 96 O2 Delivery Mechanical Ventilator Ventilator Ventilator Ventilator 08/06/18 08/06/18 08/06/18 08/06/18 05:40 06:00 07:00 07:39 Pulse 59 54 Resp 18 17 B/P (MAP) 135/63 (87) 125/67 (86) Pulse Ox 97 95 96 96 O2 Delivery Ventilator Ventilator Ventilator Ventilator 08/06/18 08/06/18 08/06/18 08/06/18 07:54 08:00 08:00 09:00 Temp 99.2 99.2 Pulse 85 77 56 Resp 14 19 B/P (MAP) 125/67 128/73 (91) 122/63 (82) Pulse Ox 97 97 O2 Delivery Mechanical Ventilator Ventilator Ventilator 08/06/18 08/06/18 08/06/18 09:24 09:49 09:56 Resp 20 18 Pulse Ox 97 97 97 O2 Delivery Ventilator Ventilator Ventilator O2 Flow Rate 3.0 Intake and Output 08/05/18 08/05/18 08/06/18 15:00 23:00 07:00 Intake Total 610 ml 1840.47 ml 1847 ml Output Total 1860 ml 2760 ml 1830 ml Balance -1250 ml -919.53 ml 17 ml Problem List Problems Medical Problems: (1) Pneumonia Status: Acute Assessment Stable GI-rueda. LFT's stable. Plan of Care: Continue current Tx, Mgmt Plan of Care Note Continue tube feedings. KATHRYN ROCA MD Aug 06, 2018 10:06
[2018-08-07] VITALS (24 sets, daily range): BP systolic 109–170; BP diastolic 51–97
[2018-08-07] MEDS: PROPOFOL 100 ML IV PRN ×8 (00:23→22:18)
[2018-08-07] MEDS: ENOXAPARIN 40 MG/0.4 ML SYRINGE. SQ SCH ×2 (00:24→12:12)
[2018-08-07] MEDS: methylPREDNISolone SOD SUCC PF 125 MG/2 ML VIAL. IV SCH ×3 (06:08→21:57)
[2018-08-07] MEDS: INSULIN LISPRO 300 UNITS/3 ML INSULN.PEN. SQ SCH ×4 (06:09→18:26)
[2018-08-07 06:42] LABS: BASO # 0.1 x10^3/uL (0.0-0.2); BASO % 1 % (0-3); EOS # 0.1 x10^3/uL (0.0-0.7); EOS % 1 % (0-3); HEMATOCRIT 32.1 % (36.0-47.0); LYMPH % 18 % (24-48); MEAN CORPUSCULAR HEMOGLOBIN 28 pg (25-35); MEAN CORPUSCULAR HGB CONC 34 g/dL (31-37); MEAN CORPUSCULAR VOLUME 81 fL (79-100); MONO # 0.8 x10^3/uL (0.0-1.1); MONO % 7 % (0-9); NEUT # 8.6 x10^3uL (1.8-7.7); NEUT % 74 % (31-73); PLATELET COUNT 274 x10^3/uL (140-400); RED BLOOD COUNT 3.96 x10^6/uL (3.50-5.40); RED CELL DISTRIBUTION WIDTH 13.7 % (11.5-14.5); WHITE BLOOD COUNT 11.6 x10^3/uL (4.0-11.0)
[2018-08-07 06:44] LABS: CALCIUM 8.8 mg/dL (8.5-10.1); CREATININE 0.5 mg/dL (0.6-1.0); GFR 144.9; POTASSIUM 3.8 mmol/L (3.5-5.1)
--- NOTE | 2018-08-07 07:45 | PDOC ---
Infectious Disease Note Subjective Subjective pt is intubated on vent ROS ROS no n/v/d/fever Vital Sign Vital Signs Vital Signs Date Time Temp Pulse Resp B/P (MAP) Pulse Ox O2 Delivery O2 Flow Rate FiO2 08/07/18 07:00 46 18 141/78 (99) 95 Ventilator 08/07/18 04:00 98.3 98.3 08/06/18 09:24 3.0 Physical Exam PHYSICAL EXAM CONSTITUTIONAL: She is intubated. She is lightly sedated. HEENT: Pupils are equal and reactive. NECK: Supple. She has a right IJ without signs of any complications. No JVD. LUNGS: Decreased at bases. HEART: S1, S2, mild tachycardic. ABDOMEN: Obese, soft, nontender, nondistended, positive bowel sounds. King without signs of complications. EXTREMITIES: No clubbing, cyanosis or gross edema. SKIN: Without signs of rash. NEUROLOGIC: She was somewhat alert, moving around a little bit, but she is sedated Labs Lab Laboratory Tests Test 08/06/18 08:45 08/06/18 12:21 08/06/18 17:30 08/07/18 01:10 O2 Saturation 97 % (92-99) Arterial Blood pH 7.48 (7.35-7.45) Arterial Blood pCO2 at Patient Temp 37 mmHg (35-46) Arterial Blood pO2 at Patient Temp 99 mmHg (85-108) Arterial Blood HCO3 27 mmol/L (21-28) Arterial Blood Base Excess 3 mmol/L (-3-3) FiO2 50 Glucose (Fingerstick) 154 mg/dL (70-99) 145 mg/dL (70-99) 167 mg/dL (70-99) Test 08/07/18 06:06 08/07/18 06:20 Glucose (Fingerstick) 175 mg/dL (70-99) White Blood Count 11.6 x10^3/uL (4.0-11.0) Red Blood Count 3.96 x10^6/uL (3.50-5.40) Hemoglobin 11.0 g/dL (12.0-15.5) Hematocrit 32.1 % (36.0-47.0) Mean Corpuscular Volume 81 fL (79-100) Mean Corpuscular Hemoglobin 28 pg (25-35) Mean Corpuscular Hemoglobin Concent 34 g/dL (31-37) Red Cell Distribution Width 13.7 % (11.5-14.5) Platelet Count 274 x10^3/uL (140-400) Neutrophils (%) (Auto) 74 % (31-73) Lymphocytes (%) (Auto) 18 % (24-48) Monocytes (%) (Auto) 7 % (0-9) Eosinophils (%) (Auto) 1 % (0-3) Basophils (%) (Auto) 1 % (0-3) Neutrophils # (Auto) 8.6 x10^3uL (1.8-7.7) Lymphocytes # (Auto) 2.0 x10^3/uL (1.0-4.8) Monocytes # (Auto) 0.8 x10^3/uL (0.0-1.1) Eosinophils # (Auto) 0.1 x10^3/uL (0.0-0.7) Basophils # (Auto) 0.1 x10^3/uL (0.0-0.2) Sodium Level 140 mmol/L (136-145) Potassium Level 3.8 mmol/L (3.5-5.1) Chloride Level 102 mmol/L (98-107) Carbon Dioxide Level 29 mmol/L (21-32) Anion Gap 9 (6-14) Blood Urea Nitrogen 15 mg/dL (7-20) Creatinine 0.5 mg/dL (0.6-1.0) Estimated GFR (Cockcroft-Gault) 144.9 Glucose Level 181 mg/dL (70-99) Calcium Level 8.8 mg/dL (8.5-10.1) Micro Microbiology 07/28/18 Blood Culture - Final, Complete NO GROWTH AFTER 5 DAYS Objective Assessment 1. Leukocytosis, 2. Acute respiratory failure, intubated. 3. Community-acquired pneumonia. Rhino virus + 4. Transaminitis. 5. Morbid obesity. 6. h/o Asthma Plan Plan of Care off antibiotics influenza neg strep antigen/Legionella/Mycoplasma,, neg Rhino virus positive F/u labs and cults PAULO CHIN MD Aug 07, 2018 07:45
[2018-08-07] MEDS: PANTOPRAZOLE IV PUSH 40 MG VIAL. IVP SCH (07:46)
--- NOTE | 2018-08-07 08:00 | RAD ---
Portable chest, 08/07/2018: HISTORY: Acute respiratory distress Comparison is made to yesterday's study. The ET tube tip lies well above the tom. An NG tube extends into the stomach. A right jugular central venous catheter extends into the right atrium. Cardiomegaly is unchanged. The pulmonary infiltrates have worsened slightly with increasing loss of definition of the pulmonary vasculature in the right hemidiaphragm. There may be pleural fluid contributing to left basilar opacity. There is no evidence of pneumothorax. IMPRESSION: 1. Stable tube positions. 2. Slight interval worsening of the pulmonary infiltrates suggesting pulmonary edema and/or pneumonia. Electronically signed by: Genaro Moreno MD (08/07/2018 7:57 AM) [facility]
[2018-08-07] MEDS: IPRATRPIUM/ALBUTEROL 0.5/2.5MG 3 ML NEBU. NEB SCH ×4 (08:02→20:01)
[2018-08-07] MEDS: BUDESONIDE 0.5 MG/2 ML NEBU. NEB SCH ×2 (08:02→20:01)
[2018-08-07 08:09] LABS: BASE EXCESS ABG 2 mmol/L (-3-3); HCO3 ABG 25 mmol/L (21-28); PCO2 ABG 35 mmHg (35-46); PO2 ABG 81 mmHg (85-108); SAT O2 ABG 96 % (92-99)
[2018-08-07] MEDS: CITALOPRAM 20 MG TABLET. PO SCH (09:06)
[2018-08-07] MEDS: CHLORHEXIDINE 0.12% 15 ML MOUTHWASH. MM SCH ×2 (09:07→21:57)
[2018-08-07] MEDS: amLODIPine BESYLATE 2.5 MG TABLET PO SCH (09:07)
--- NOTE | 2018-08-07 09:27 | PDOC ---
PULMONARY PROGRESS NOTES Subjective patient intubated 07/30 after progressive hypoxia and failed BIPAP SEDATED ON AC MODE Vitals Vital Signs Date Time Temp Pulse Resp B/P (MAP) Pulse Ox O2 Delivery O2 Flow Rate FiO2 08/07/18 09:07 93 170/93 08/07/18 09:06 18 96 Ventilator 08/07/18 04:00 98.3 98.3 08/06/18 09:24 3.0 HEENT: Other (nc at perrl. nose throat clear.... neck, no lad, no thyromegaly) Lungs: Crackles Cardiovascular: S1, S2 Abdomen: Soft, Non-tender, Other (no mass) Extremities: Other (trace edema) Skin: Warm Labs Laboratory Tests Test 08/05/18 12:16 08/05/18 18:09 08/05/18 23:28 08/06/18 04:30 Glucose (Fingerstick) 170 mg/dL (70-99) 145 mg/dL (70-99) 128 mg/dL (70-99) White Blood Count 9.7 x10^3/uL (4.0-11.0) Red Blood Count 3.85 x10^6/uL (3.50-5.40) Hemoglobin 10.7 g/dL (12.0-15.5) Hematocrit 31.5 % (36.0-47.0) Mean Corpuscular Volume 82 fL (79-100) Mean Corpuscular Hemoglobin 28 pg (25-35) Mean Corpuscular Hemoglobin Concent 34 g/dL (31-37) Red Cell Distribution Width 13.8 % (11.5-14.5) Platelet Count 270 x10^3/uL (140-400) Neutrophils (%) (Auto) 76 % (31-73) Lymphocytes (%) (Auto) 17 % (24-48) Monocytes (%) (Auto) 7 % (0-9) Eosinophils (%) (Auto) 1 % (0-3) Basophils (%) (Auto) 0 % (0-3) Neutrophils # (Auto) 7.4 x10^3uL (1.8-7.7) Lymphocytes # (Auto) 1.6 x10^3/uL (1.0-4.8) Monocytes # (Auto) 0.6 x10^3/uL (0.0-1.1) Eosinophils # (Auto) 0.1 x10^3/uL (0.0-0.7) Basophils # (Auto) 0.0 x10^3/uL (0.0-0.2) Sodium Level 139 mmol/L (136-145) Potassium Level 4.3 mmol/L (3.5-5.1) Chloride Level 104 mmol/L (98-107) Carbon Dioxide Level 30 mmol/L (21-32) Anion Gap 5 (6-14) Blood Urea Nitrogen 15 mg/dL (7-20) Creatinine 0.6 mg/dL (0.6-1.0) Estimated GFR (Cockcroft-Gault) 117.4 Glucose Level 164 mg/dL (70-99) Calcium Level 8.4 mg/dL (8.5-10.1) Test 08/06/18 05:33 08/06/18 08:45 08/06/18 12:21 08/06/18 17:30 Glucose (Fingerstick) 169 mg/dL (70-99) 154 mg/dL (70-99) 145 mg/dL (70-99) O2 Saturation 97 % (92-99) Arterial Blood pH 7.48 (7.35-7.45) Arterial Blood pCO2 at Patient Temp 37 mmHg (35-46) Arterial Blood pO2 at Patient Temp 99 mmHg (85-108) Arterial Blood HCO3 27 mmol/L (21-28) Arterial Blood Base Excess 3 mmol/L (-3-3) FiO2 50 Test 08/07/18 01:10 08/07/18 06:06 08/07/18 06:20 Glucose (Fingerstick) 167 mg/dL (70-99) 175 mg/dL (70-99) White Blood Count 11.6 x10^3/uL (4.0-11.0) Red Blood Count 3.96 x10^6/uL (3.50-5.40) Hemoglobin 11.0 g/dL (12.0-15.5) Hematocrit 32.1 % (36.0-47.0) Mean Corpuscular Volume 81 fL (79-100) Mean Corpuscular Hemoglobin 28 pg (25-35) Mean Corpuscular Hemoglobin Concent 34 g/dL (31-37) Red Cell Distribution Width 13.7 % (11.5-14.5) Platelet Count 274 x10^3/uL (140-400) Neutrophils (%) (Auto) 74 % (31-73) Lymphocytes (%) (Auto) 18 % (24-48) Monocytes (%) (Auto) 7 % (0-9) Eosinophils (%) (Auto) 1 % (0-3) Basophils (%) (Auto) 1 % (0-3) Neutrophils # (Auto) 8.6 x10^3uL (1.8-7.7) Lymphocytes # (Auto) 2.0 x10^3/uL (1.0-4.8) Monocytes # (Auto) 0.8 x10^3/uL (0.0-1.1) Eosinophils # (Auto) 0.1 x10^3/uL (0.0-0.7) Basophils # (Auto) 0.1 x10^3/uL (0.0-0.2) Sodium Level 140 mmol/L (136-145) Potassium Level 3.8 mmol/L (3.5-5.1) Chloride Level 102 mmol/L (98-107) Carbon Dioxide Level 29 mmol/L (21-32) Anion Gap 9 (6-14) Blood Urea Nitrogen 15 mg/dL (7-20) Creatinine 0.5 mg/dL (0.6-1.0) Estimated GFR (Cockcroft-Gault) 144.9 Glucose Level 181 mg/dL (70-99) Calcium Level 8.8 mg/dL (8.5-10.1) Laboratory Tests Test 08/06/18 12:21 08/06/18 17:30 08/07/18 01:10 08/07/18 06:06 Glucose (Fingerstick) 154 mg/dL (70-99) 145 mg/dL (70-99) 167 mg/dL (70-99) 175 mg/dL (70-99) Test 08/07/18 06:20 White Blood Count 11.6 x10^3/uL (4.0-11.0) Red Blood Count 3.96 x10^6/uL (3.50-5.40) Hemoglobin 11.0 g/dL (12.0-15.5) Hematocrit 32.1 % (36.0-47.0) Mean Corpuscular Volume 81 fL (79-100) Mean Corpuscular Hemoglobin 28 pg (25-35) Mean Corpuscular Hemoglobin Concent 34 g/dL (31-37) Red Cell Distribution Width 13.7 % (11.5-14.5) Platelet Count 274 x10^3/uL (140-400) Neutrophils (%) (Auto) 74 % (31-73) Lymphocytes (%) (Auto) 18 % (24-48) Monocytes (%) (Auto) 7 % (0-9) Eosinophils (%) (Auto) 1 % (0-3) Basophils (%) (Auto) 1 % (0-3) Neutrophils # (Auto) 8.6 x10^3uL (1.8-7.7) Lymphocytes # (Auto) 2.0 x10^3/uL (1.0-4.8) Monocytes # (Auto) 0.8 x10^3/uL (0.0-1.1) Eosinophils # (Auto) 0.1 x10^3/uL (0.0-0.7) Basophils # (Auto) 0.1 x10^3/uL (0.0-0.2) Sodium Level 140 mmol/L (136-145) Potassium Level 3.8 mmol/L (3.5-5.1) Chloride Level 102 mmol/L (98-107) Carbon Dioxide Level 29 mmol/L (21-32) Anion Gap 9 (6-14) Blood Urea Nitrogen 15 mg/dL (7-20) Creatinine 0.5 mg/dL (0.6-1.0) Estimated GFR (Cockcroft-Gault) 144.9 Glucose Level 181 mg/dL (70-99) Calcium Level 8.8 mg/dL (8.5-10.1) Medications Active Scripts Medications Dose Route/Sig Max Daily Dose Days Date Category Dose Instructions Topiramate 25 Mg Tablet 1 Tab PO HS 07/28/18 Reported Phentermine Hcl 37.5 Mg Capsule 1 Cap PO [id number] 07/28/18 Reported Metformin Hcl 500 Mg Tablet 500 Mg PO BIDWMEALS 07/28/18 Reported Motrin Ib (Ibuprofen) 200 Mg Tablet 800 Mg PO Q8H PRN 08/15/17 Rx Tessalon Perle (Benzonatate) 100 Mg Capsule 100 Mg PO TID PRN 01/11/17 Rx Prednisone 20 Mg Tablet 40 Mg PO DAILY 08/06/16 Rx START MEDICATIONS ON 08/07/2016 Medrol (Methylprednisolone) 4 Mg Tab.ds.pk 1 Pkg PO UD 11/16/14 Rx Levaquin (Levofloxacin) 750 Mg Tablet 750 Mg PO DAILY06 11/16/14 Rx Advair 250-50 Diskus (Fluticasone/Salmeterol) 1 Puff Puff 1 Puff INH BID 11/16/14 Rx Escitalopram Oxalate 20 Mg Tablet 1 Tab PO DAILY 11/09/14 Reported Xanax (Alprazolam) 0.25 Mg Tablet 0.25 Mg PO PRN Q6HRS PRN 11/09/14 Reported Impression . 1. Acute respiratory failure requiring mechanical ventilation 07/30. ARDS/ diffuse pneumonia 2. Acute exacerbation of chronic obstructive pulmonary disease with an asthma component. 3. abnl cxr, Diffuse lung infiltrates, suspect diffuse lung pneumonia/ ARDS 4. Morbid obesity, body mass index of 40, prob ji. 5. H/O Anxiety/panic attacks. 6. Status post cholecystectomy. CHEST XRAY Comparison is made to yesterday's study. The ET tube tip lies several centimeters above the tom. An NG tube extends into the stomach. A right jugular central venous catheter extends into the right atrium. The heart is mildly enlarged and unchanged. There are ongoing bibasilar pulmonary infiltrates, left greater than right. There may be pleural fluid inferiorly in the left basilar opacity. No new abnormality is seen. IMPRESSION: 1. Stable tube positions. 2. Unchanged bibasilar pulmonary infiltrates. Plan . DID NOT DO WELL ON TRIAL STILL WHEEZING AT TIMES MAY NEED A TRACH IN FUTURE OXYGENATION IS IMPROVING WILL CONTINUE SUPPORT AM TRIAL IF ABG IS ADEQUATE STEROIDS NEB/DVT/GI PROPH CCT 30 MIN DESI HERNÁNDEZ MD Aug 07, 2018 09:27
[2018-08-07] MEDS: ALPRAZolam 0.25 MG TABLET PO PRN ×2 (11:01→16:31)
--- NOTE | 2018-08-07 11:19 | PDOC ---
PROGRESS NOTES Chief Complaint Chief Complaint Acute hypoxic respiratory failure with intubation Sepsis Pneumonia EZ lobe Acute asthma exacerbation Obesity Possible ileus Transaminitis, NOS History of Present Illness History of Present Illness Pt seen and examined in ICU Dw RN Pt sedated on ventilator A/C/18/550/40% w/ 5 PEEP Vitals Vitals Vital Signs Date Time Temp Pulse Resp B/P (MAP) Pulse Ox O2 Delivery O2 Flow Rate FiO2 08/07/18 09:45 18 96 Ventilator 08/07/18 09:07 93 170/93 08/07/18 04:00 98.3 98.3 08/06/18 09:24 3.0 Physical Exam General: No acute distress, Other (sedated on ventilator) Heart: Regular rate, Normal S1, Normal S2 Lungs: Crackles Abdomen: Normal bowel sounds, Soft Extremities: No cyanosis, No edema, Normal pulses Skin: No rashes, No significant lesion Labs LABS Laboratory Tests Test 08/06/18 12:21 08/06/18 17:30 08/07/18 01:10 08/07/18 06:06 Glucose (Fingerstick) 154 mg/dL (70-99) 145 mg/dL (70-99) 167 mg/dL (70-99) 175 mg/dL (70-99) Test 08/07/18 06:20 08/07/18 08:00 White Blood Count 11.6 x10^3/uL (4.0-11.0) Red Blood Count 3.96 x10^6/uL (3.50-5.40) Hemoglobin 11.0 g/dL (12.0-15.5) Hematocrit 32.1 % (36.0-47.0) Mean Corpuscular Volume 81 fL (79-100) Mean Corpuscular Hemoglobin 28 pg (25-35) Mean Corpuscular Hemoglobin Concent 34 g/dL (31-37) Red Cell Distribution Width 13.7 % (11.5-14.5) Platelet Count 274 x10^3/uL (140-400) Neutrophils (%) (Auto) 74 % (31-73) Lymphocytes (%) (Auto) 18 % (24-48) Monocytes (%) (Auto) 7 % (0-9) Eosinophils (%) (Auto) 1 % (0-3) Basophils (%) (Auto) 1 % (0-3) Neutrophils # (Auto) 8.6 x10^3uL (1.8-7.7) Lymphocytes # (Auto) 2.0 x10^3/uL (1.0-4.8) Monocytes # (Auto) 0.8 x10^3/uL (0.0-1.1) Eosinophils # (Auto) 0.1 x10^3/uL (0.0-0.7) Basophils # (Auto) 0.1 x10^3/uL (0.0-0.2) Sodium Level 140 mmol/L (136-145) Potassium Level 3.8 mmol/L (3.5-5.1) Chloride Level 102 mmol/L (98-107) Carbon Dioxide Level 29 mmol/L (21-32) Anion Gap 9 (6-14) Blood Urea Nitrogen 15 mg/dL (7-20) Creatinine 0.5 mg/dL (0.6-1.0) Estimated GFR (Cockcroft-Gault) 144.9 Glucose Level 181 mg/dL (70-99) Calcium Level 8.8 mg/dL (8.5-10.1) O2 Saturation 96 % (92-99) Arterial Blood pH 7.48 (7.35-7.45) Arterial Blood pCO2 at Patient Temp 35 mmHg (35-46) Arterial Blood pO2 at Patient Temp 81 mmHg (85-108) Arterial Blood HCO3 25 mmol/L (21-28) Arterial Blood Base Excess 2 mmol/L (-3-3) FiO2 vent 50% Review of Systems Review of Systems Pt sedated on ventilator Assessment and Plan Assessmemt and Plan Problems Medical Problems: (1) Pneumonia Status: Acute Acute hypoxic respiratory failure with intubation Sepsis Pneumonia EZ lobe Acute asthma exacerbation Obesity Possible ileus Transaminitis, NOS Plan: ICU monitoring Vent weaning Propofol sedation Nebs Abx Steroids OG feeding King to bedside drainage Comment Review of Relevant I have reviewed the following items [place] (where applicable) has been applied. Labs Laboratory Tests Test 08/05/18 12:16 08/05/18 18:09 08/05/18 23:28 08/06/18 04:30 Glucose (Fingerstick) 170 mg/dL (70-99) 145 mg/dL (70-99) 128 mg/dL (70-99) White Blood Count 9.7 x10^3/uL (4.0-11.0) Red Blood Count 3.85 x10^6/uL (3.50-5.40) Hemoglobin 10.7 g/dL (12.0-15.5) Hematocrit 31.5 % (36.0-47.0) Mean Corpuscular Volume 82 fL (79-100) Mean Corpuscular Hemoglobin 28 pg (25-35) Mean Corpuscular Hemoglobin Concent 34 g/dL (31-37) Red Cell Distribution Width 13.8 % (11.5-14.5) Platelet Count 270 x10^3/uL (140-400) Neutrophils (%) (Auto) 76 % (31-73) Lymphocytes (%) (Auto) 17 % (24-48) Monocytes (%) (Auto) 7 % (0-9) Eosinophils (%) (Auto) 1 % (0-3) Basophils (%) (Auto) 0 % (0-3) Neutrophils # (Auto) 7.4 x10^3uL (1.8-7.7) Lymphocytes # (Auto) 1.6 x10^3/uL (1.0-4.8) Monocytes # (Auto) 0.6 x10^3/uL (0.0-1.1) Eosinophils # (Auto) 0.1 x10^3/uL (0.0-0.7) Basophils # (Auto) 0.0 x10^3/uL (0.0-0.2) Sodium Level 139 mmol/L (136-145) Potassium Level 4.3 mmol/L (3.5-5.1) Chloride Level 104 mmol/L (98-107) Carbon Dioxide Level 30 mmol/L (21-32) Anion Gap 5 (6-14) Blood Urea Nitrogen 15 mg/dL (7-20) Creatinine 0.6 mg/dL (0.6-1.0) Estimated GFR (Cockcroft-Gault) 117.4 Glucose Level 164 mg/dL (70-99) Calcium Level 8.4 mg/dL (8.5-10.1) Test 08/06/18 05:33 08/06/18 08:45 08/06/18 12:21 08/06/18 17:30 Glucose (Fingerstick) 169 mg/dL (70-99) 154 mg/dL (70-99) 145 mg/dL (70-99) O2 Saturation 97 % (92-99) Arterial Blood pH 7.48 (7.35-7.45) Arterial Blood pCO2 at Patient Temp 37 mmHg (35-46) Arterial Blood pO2 at Patient Temp 99 mmHg (85-108) Arterial Blood HCO3 27 mmol/L (21-28) Arterial Blood Base Excess 3 mmol/L (-3-3) FiO2 50 Test 08/07/18 01:10 08/07/18 06:06 08/07/18 06:20 08/07/18 08:00 Glucose (Fingerstick) 167 mg/dL (70-99) 175 mg/dL (70-99) White Blood Count 11.6 x10^3/uL (4.0-11.0) Red Blood Count 3.96 x10^6/uL (3.50-5.40) Hemoglobin 11.0 g/dL (12.0-15.5) Hematocrit 32.1 % (36.0-47.0) Mean Corpuscular Volume 81 fL (79-100) Mean Corpuscular Hemoglobin 28 pg (25-35) Mean Corpuscular Hemoglobin Concent 34 g/dL (31-37) Red Cell Distribution Width 13.7 % (11.5-14.5) Platelet Count 274 x10^3/uL (140-400) Neutrophils (%) (Auto) 74 % (31-73) Lymphocytes (%) (Auto) 18 % (24-48) Monocytes (%) (Auto) 7 % (0-9) Eosinophils (%) (Auto) 1 % (0-3) Basophils (%) (Auto) 1 % (0-3) Neutrophils # (Auto) 8.6 x10^3uL (1.8-7.7) Lymphocytes # (Auto) 2.0 x10^3/uL (1.0-4.8) Monocytes # (Auto) 0.8 x10^3/uL (0.0-1.1) Eosinophils # (Auto) 0.1 x10^3/uL (0.0-0.7) Basophils # (Auto) 0.1 x10^3/uL (0.0-0.2) Sodium Level 140 mmol/L (136-145) Potassium Level 3.8 mmol/L (3.5-5.1) Chloride Level 102 mmol/L (98-107) Carbon Dioxide Level 29 mmol/L (21-32) Anion Gap 9 (6-14) Blood Urea Nitrogen 15 mg/dL (7-20) Creatinine 0.5 mg/dL (0.6-1.0) Estimated GFR (Cockcroft-Gault) 144.9 Glucose Level 181 mg/dL (70-99) Calcium Level 8.8 mg/dL (8.5-10.1) O2 Saturation 96 % (92-99) Arterial Blood pH 7.48 (7.35-7.45) Arterial Blood pCO2 at Patient Temp 35 mmHg (35-46) Arterial Blood pO2 at Patient Temp 81 mmHg (85-108) Arterial Blood HCO3 25 mmol/L (21-28) Arterial Blood Base Excess 2 mmol/L (-3-3) FiO2 vent 50% Laboratory Tests Test 08/06/18 12:21 08/06/18 17:30 08/07/18 01:10 08/07/18 06:06 Glucose (Fingerstick) 154 mg/dL (70-99) 145 mg/dL (70-99) 167 mg/dL (70-99) 175 mg/dL (70-99) Test 08/07/18 06:20 08/07/18 08:00 White Blood Count 11.6 x10^3/uL (4.0-11.0) Red Blood Count 3.96 x10^6/uL (3.50-5.40) Hemoglobin 11.0 g/dL (12.0-15.5) Hematocrit 32.1 % (36.0-47.0) Mean Corpuscular Volume 81 fL (79-100) Mean Corpuscular Hemoglobin 28 pg (25-35) Mean Corpuscular Hemoglobin Concent 34 g/dL (31-37) Red Cell Distribution Width 13.7 % (11.5-14.5) Platelet Count 274 x10^3/uL (140-400) Neutrophils (%) (Auto) 74 % (31-73) Lymphocytes (%) (Auto) 18 % (24-48) Monocytes (%) (Auto) 7 % (0-9) Eosinophils (%) (Auto) 1 % (0-3) Basophils (%) (Auto) 1 % (0-3) Neutrophils # (Auto) 8.6 x10^3uL (1.8-7.7) Lymphocytes # (Auto) 2.0 x10^3/uL (1.0-4.8) Monocytes # (Auto) 0.8 x10^3/uL (0.0-1.1) Eosinophils # (Auto) 0.1 x10^3/uL (0.0-0.7) Basophils # (Auto) 0.1 x10^3/uL (0.0-0.2) Sodium Level 140 mmol/L (136-145) Potassium Level 3.8 mmol/L (3.5-5.1) Chloride Level 102 mmol/L (98-107) Carbon Dioxide Level 29 mmol/L (21-32) Anion Gap 9 (6-14) Blood Urea Nitrogen 15 mg/dL (7-20) Creatinine 0.5 mg/dL (0.6-1.0) Estimated GFR (Cockcroft-Gault) 144.9 Glucose Level 181 mg/dL (70-99) Calcium Level 8.8 mg/dL (8.5-10.1) O2 Saturation 96 % (92-99) Arterial Blood pH 7.48 (7.35-7.45) Arterial Blood pCO2 at Patient Temp 35 mmHg (35-46) Arterial Blood pO2 at Patient Temp 81 mmHg (85-108) Arterial Blood HCO3 25 mmol/L (21-28) Arterial Blood Base Excess 2 mmol/L (-3-3) FiO2 vent 50% Microbiology 07/28/18 Blood Culture - Final, Complete NO GROWTH AFTER 5 DAYS 08/04/18 - Final, Resulted 08/04/18 - Final, Resulted 08/04/18 , Resulted Pending 08/04/18 Gram Stain Evaluation - Final, Resulted 08/04/18 Sputum Culture - Final, Resulted 08/04/18 Sputum Result 1 - Final, Resulted Medications Current Medications Prednisone (Prednisone) 50 mg 1X ONCE PO Last administered on 07/28/18at 06:47; Start 07/28/18 at 07:00; Stop 07/28/18 at 07:01; Status DC Albuterol/ Ipratropium (Duoneb) 3 ml 1X ONCE NEB Last administered on at 06:37; Start 07/28/18 at 07:00; Stop 07/28/18 at 07:01; Status DC Sodium Chloride 1,000 ml @ 1,000 mls/hr 1X ONCE IV Last administered on at 07:03; Start 07/28/18 at 07:00; Stop 07/28/18 at 07:59; Status DC Albuterol Sulfate (Ventolin Neb Soln) 10 mg 1X ONCE CONT NEB Last administered on 07/28/18at 07:25; Start 07/28/18 at 07:00; Stop 07/28/18 at 07:02; Status DC Magnesium Sulfate 50 ml @ 25 mls/hr 1X ONCE IV Last administered on 07/28/18at 07:41; Start 07/28/18 at 07:15; Stop 07/28/18 at 09:14; Status DC Ceftriaxone Sodium 50 ml @ 100 mls/hr 1X ONCE IV Last administered on at 08:52; Start 07/28/18 at 08:15; Stop 07/28/18 at 08:44; Status DC Azithromycin 250 ml @ 250 mls/hr 1X ONCE IV Last administered on 07/28/18at 09: 20; Start 07/28/18 at 08:15; Stop 07/28/18 at 09:14; Status DC Acetaminophen/ Hydrocodone Bitart (Lortab 5/325) 2 tab 1X ONCE PO Last administered on 07/28/18at 08:49; Start 07/28/18 at 08:45; Stop 07/28/18 at 08:46; Status DC Ondansetron HCl (Zofran) 4 mg PRN Q8HRS PRN IV NAUSEA/VOMITING Last administered on 07/28/18at 22:40; Start 07/28/18 at 08:45; Stop 07/29/18 at 08:44; Status DC Acetaminophen (Tylenol) 650 mg PRN Q4HRS PRN PO FEVER Last administered on at 22:40; Start 07/28/18 at 08:45; Stop 07/29/18 at 08:44; Status DC Albuterol/ Ipratropium (Duoneb) 3 ml RTQID NEB Last administered on 07/29/18at 07 :29; Start 07/28/18 at 12:00; Stop 07/29/18 at 10:30; Status DC Acetaminophen/ Hydrocodone Bitart (Lortab 5/325) 2 tab Q6H PRN PO MODERATE- SEVERE PAIN Last administered on 07/29/18at 23:09; Start 07/28/18 at 08:45 Prednisone (Prednisone) 60 mg DAILY PO ; Start 07/29/18 at 09:00; Stop 07/29/18 at 09:00; Status DC Budesonide (Pulmicort) 0.5 mg RTBID NEB Last administered on 08/07/18at 08:02; Start 07/28/18 at 20:00 Budesonide (Pulmicort) 0.5 mg 1X ONCE NEB Last administered on 07/28/18at 11:06 ; Start 07/28/18 at 09:30; Stop 07/28/18 at 09:31; Status DC Albuterol Sulfate (Ventolin Neb Soln) 2.5 mg PRN Q4HRS PRN NEB SHORTNESS OF BREATH; Start 07/28/18 at 09:30 Azithromycin (Zithromax) 250 mg DAILY PO Last administered on 08/01/18at 08:54; Start 07/28/18 at 10:00; Stop 08/01/18 at 09:01; Status DC Alprazolam (Xanax) 0.25 mg PRN Q6HRS PRN PO ANXIETY / AGITATION Last administered on 08/07/18at 11:01; Start 07/28/18 at 12:45 Ibuprofen (Motrin) 800 mg PRN Q8HRS PRN PO PAIN MILD/INFLAMMATION; Start at 12:45 Benzonatate (Tessalon Perle) 100 mg PRN TID PRN PO COUGH 2ND CHOICE; Start 07/28 at 14:00 Citalopram Hydrobromide (CeleXA) 40 mg DAILY PO Last administered on 08/07/18at 09:06; Start 07/28/18 at 13:00 Metformin HCl (Glucophage) 500 mg BIDWMEALS PO Last administered on 07/29/18at 10 :07; Start 07/28/18 at 17:00; Stop 07/31/18 at 08:58; Status DC Promethazine HCl/ Codeine (Phenergan With Codeine) 5 ml PRN Q6HRS PRN PO COUGH 1ST CHOICE Last administered on 07/29/18at 16:25; Start 07/28/18 at 15:30 Guaifenesin (MUCINEX ER with DM) 1 tab BID PO Last administered on 07/30/18at 20: 57; Start 07/28/18 at 21:00; Stop 07/31/18 at 09:47; Status DC Lactobacillus Rhamnosus (Culturelle) 1 cap BID PO Last administered on at 21:44; Start 07/28/18 at 21:00; Stop 07/30/18 at 09:48; Status DC Prednisone (Prednisone) 30 mg DAILY PO Last administered on 07/29/18at 10:06; Start 07/29/18 at 09:00; Stop 07/31/18 at 08:58; Status DC Ceftriaxone Sodium 1 gm/ Dextrose 50 ml @ 100 mls/hr Q24H IV ; Start 07/29/18 at 09:00; Status UNV Ceftriaxone Sodium (Rocephin) 1 gm Q24H IVP Last administered on 07/29/18at 10:06 ; Start 07/29/18 at 09:00; Stop 07/30/18 at 10:07; Status DC Albuterol/ Ipratropium (Duoneb) 3 ml Q4HRS NEB Last administered on 08/02/18at 08 :40; Start 07/29/18 at 12:00; Stop 08/02/18 at 09:31; Status DC Budesonide (Pulmicort) 0.5 mg RTBID NEB ; Start 07/29/18 at 20:00; Status UNV Famotidine (Pepcid) 20 mg QHS PO Last administered on 07/29/18at 21:44; Start 07/29/18 at 21:00; Stop 07/30/18 at 10:10; Status DC Enoxaparin Sodium (Lovenox 40mg Syringe) 40 mg Q12H SQ Last administered on at 00:24; Start 07/29/18 at 12:30 Acetaminophen (Tylenol) 650 mg PRN Q6HRS PRN PO FEVER; Start 07/29/18 at 11:45 Ondansetron HCl (Zofran) 4 mg PRN Q6HRS PRN IV NAUSEA/VOMITING Last administered on 07/29/18at 15:23; Start 07/29/18 at 11:45 Morphine Sulfate (Morphine Sulfate) 2 mg PRN Q2HR PRN IV MODERATE TO SEVERE PAIN; Start 07/29/18 at 11:45 Tramadol HCl (Ultram) 50 mg PRN Q6HRS PRN PO MODERATE PAIN; Start 07/29/18 at 11 :45 Docusate Sodium (Colace) 100 mg PRN DAILY PRN PO CONSTIPATION; Start 07/29/18 at 11:45 Haloperidol Lactate (Haldol Inj) 2 mg PRN Q2HR PRN IVP AGITATION 2ND CHOICE Last administered on 08/01/18at 15:48; Start 07/30/18 at 01:30 Lorazepam (Ativan) 0.25 mg PRN Q1HR PRN IV ANXIETY/AGITATION 1ST CHOICE Last administered on 08/07/18at 06:07; Start 07/30/18 at 01:30 Propofol 100 ml @ As Directed STK-MED ONCE IV ; Start 07/30/18 at 04:12; Stop at 04:13; Status DC Etomidate (Amidate) 20 mg STK-MED ONCE IV ; Start 07/30/18 at 04:18; Stop at 04:19; Status DC Propofol 100 ml @ 0 mls/hr CONT PRN IV PER PROTOCOL Last administered on at 09:10; Start 07/30/18 at 04:30 Chlorhexidine Gluconate (Peridex) 15 ml BID MM Last administered on 08/06/18at 22:06; Start 07/30/18 at 09:00 Midazolam HCl 100 ml @ 0 mls/hr CONT PRN IV PER PROTOCOL Last administered on at 19:14; Start 07/30/18 at 04:30 Piperacillin Sod/ Tazobactam Sod (Zosyn Per Pharmacy) 1 each PRN DAILY PRN MC SEE COMMENTS; Start 07/30/18 at 10:00; Status Cancel Vancomycin HCl (Vanco Per Pharmacy) 1 each PRN DAILY PRN MC SEE COMMENTS Last administered on 08/03/18at 08:31; Start 07/30/18 at 10:00; Stop 08/03/18 at 12:30; Status DC Methylprednisolone Sodium Succinate (SOLU-Medrol 125MG VIAL) 60 mg Q8HRS IV Last administered on 08/03/18at 05:49; Start 07/30/18 at 14:00; Stop 08/03/18 at 06: 32; Status DC Pantoprazole Sodium (PROTONIX VIAL for IV PUSH) 40 mg DAILYAC IVP Last administered on 08/07/18at 07:46; Start 07/30/18 at 10:30 Piperacillin Sod/ Tazobactam Sod 3.375 gm/Sodium Chloride 50 ml @ 100 mls/hr Q6HRS IV Last administered on 08/06/18at 05:35; Start 07/30/18 at 12:00; Stop 11/11 at 07:38; Status DC Vancomycin HCl 2 gm/Sodium Chloride 500 ml @ 250 mls/hr 1X ONCE IV Last administered on 07/30/18at 10:31; Start 07/30/18 at 10:30; Stop 07/30/18 at 12:29; Status DC Vancomycin HCl 1.5 gm/Sodium Chloride 500 ml @ 250 mls/hr Q8H IV Last administered on 07/31/18at 14:10; Start 07/30/18 at 18:30; Stop 07/31/18 at 17:00; Status DC Vancomycin HCl (Vancomycin Trough Level) 1 each 1X ONCE MC Last administered on 07/31/18at 13:30; Start 07/31/18 at 13:30; Stop 07/31/18 at 13:31; Status DC Insulin Human Lispro (HumaLOG) 0-7 UNITS TIDWMEALS SQ ; Start 07/31/18 at 08:00; Stop 07/31/18 at 09:04; Status DC Dextrose (Dextrose 50%-Water Syringe) 12.5 gm PRN Q15MIN PRN IV SEE COMMENTS; Start 07/30/18 at 17:45 Insulin Human Lispro (HumaLOG) 0-7 UNITS Q6HRS SQ Last administered on at 06:09; Start 07/31/18 at 12:00 Vancomycin HCl 1.75 gm/Sodium Chloride 500 ml @ 250 mls/hr Q8H IV Last administered on 08/01/18at 13:48; Start 07/31/18 at 22:00; Stop 08/01/18 at 22:01; Status DC Vancomycin HCl (Vancomycin Trough Level) 1 each 1X ONCE MC Last administered on 08/01/18at 21:01; Start 08/01/18 at 21:30; Stop 08/01/18 at 21:31; Status DC Erythromycin Ethylsuccinate (E.e.s. 200) 200 mg 1X ONCE PEG Last administered on 08/01/18at 12:19; Start 08/01/18 at 13:00; Stop 08/01/18 at 13:01; Status DC Vancomycin HCl 2 gm/Sodium Chloride 500 ml @ 250 mls/hr Q8H IV Last administered on 08/02/18at 22:56; Start 08/01/18 at 22:00; Stop 08/02/18 at 22:59; Status DC Vancomycin HCl (Vancomycin Trough Level) 1 each 1X ONCE MC Last administered on 08/02/18at 21:30; Start 08/02/18 at 21:30; Stop 08/02/18 at 21:31; Status DC Fentanyl Citrate 30 ml @ 0 mls/hr CONT PRN IV PER PROTOCOL Last administered on 08/07/18at 09:06; Start 08/02/18 at 07:00 Enalaprilat (Vasotec Inj) 1.25 mg PRN Q6HRS PRN IVP HYPERTENSION, SEE COMMENTS ; Start 08/02/18 at 09:15 Amlodipine Besylate (Norvasc) 2.5 mg DAILY PO Last administered on 08/07/18at 09 :07; Start 08/02/18 at 10:00 Albuterol/ Ipratropium (Duoneb) 3 ml RTQID NEB Last administered on 08/07/18at 08:02; Start 08/02/18 at 12:00 Vancomycin HCl 1.75 gm/Sodium Chloride 500 ml @ 250 mls/hr Q6H IV Last administered on 08/03/18at 05:53; Start 08/03/18 at 05:00; Stop 08/03/18 at 08:23; Status DC Vancomycin HCl (Vancomycin Trough Level) 1 each 1X ONCE MC ; Start 08/03/18 at 22:30; Stop 08/03/18 at 22:31; Status Cancel Methylprednisolone Sodium Succinate (SOLU-Medrol 125MG VIAL) 40 mg Q8HRS IV Last administered on 08/07/18at 06:08; Start 08/03/18 at 14:00 Vancomycin HCl 2 gm/Sodium Chloride 500 ml @ 250 mls/hr Q8H IV ; Start 08/03/18 at 14:00; Stop 08/03/18 at 14:00; Status DC Azithromycin 500 mg/Sodium Chloride 250 ml @ 250 mls/hr Q24H IV Last administered on 08/05/18at 13:08; Start 08/03/18 at 13:00; Stop 08/06/18 at 07:38 ; Status DC Active Scripts Active Motrin Ib (Ibuprofen) 200 Mg Tablet 800 Mg PO Q8H PRN Tessalon Perle (Benzonatate) 100 Mg Capsule 100 Mg PO TID PRN Prednisone 20 Mg Tablet 40 Mg PO DAILY START MEDICATIONS ON 08/07/2016 Medrol (Methylprednisolone) 4 Mg Tab.ds.pk 1 Pkg PO UD Levaquin (Levofloxacin) 750 Mg Tablet 750 Mg PO DAILY06 Advair 250-50 Diskus (Fluticasone/Salmeterol) 1 Puff Puff 1 Puff INH BID Reported Topiramate 25 Mg Tablet 1 Tab PO HS Phentermine Hcl 37.5 Mg Capsule 1 Cap PO DAILYWBKFT Metformin Hcl 500 Mg Tablet 500 Mg PO BIDWMEALS Escitalopram Oxalate 20 Mg Tablet 1 Tab PO DAILY Xanax (Alprazolam) 0.25 Mg Tablet 0.25 Mg PO PRN Q6HRS PRN Vitals/I & O Vital Sign - Last 24 Hours 08/06/18 08/06/18 08/06/18 08/06/18 11:18 12:00 12:00 13:00 Temp 98.9 98.9 Pulse 88 71 Resp 26 25 B/P (MAP) 117/53 (74) 107/49 (68) Pulse Ox 97 95 96 O2 Delivery Ventilator Mechanical Ventilator Ventilator Ventilator 08/06/18 08/06/18 08/06/18 08/06/18 13:18 14:00 14:03 15:00 Pulse 56 72 Resp 17 20 18 B/P (MAP) 113/62 (79) 112/52 (72) Pulse Ox 96 97 98 O2 Delivery Ventilator Ventilator Ventilator Ventilator 08/06/18 08/06/18 08/06/18 08/06/18 15:41 16:00 16:00 17:00 Temp 99.2 99.2 Pulse 67 56 Resp 21 29 B/P (MAP) 119/60 (79) 117/60 (79) Pulse Ox 94 94 95 O2 Delivery Ventilator Mechanical Ventilator Ventilator Ventilator 08/06/18 08/06/18 08/06/1808/06/18 17:56 18:00 19:00 19:26 Pulse 55 50 Resp 18 18 B/P (MAP) 127/69 (88) 121/63 (82) Pulse Ox 96 96 96 96 O2 Delivery Ventilator Ventilator Ventilator 08/06/18 08/06/18 08/06/18 08/06/18 20:00 20:00 21:00 22:00 Temp 98.6 98.6 Pulse 60 62 50 Resp 17 18 18 B/P (MAP) 131/65 (87) 117/58 (77) 120/68 (85) Pulse Ox 96 96 96 O2 Delivery Ventilator Mechanical Ventilator Ventilator Ventilator 08/06/18 08/06/18 08/07/18 08/07/18 23:00 23:20 00:00 00:00 Temp 98.5 98.5 Pulse 58 50 Resp 18 18 B/P (MAP) 135/72 (93) 137/74 (95) Pulse Ox 95 96 95 O2 Delivery Ventilator Ventilator Ventilator Mechanical Ventilator 08/07/18 08/07/18 08/07/18 08/07/18 01:00 01:57 02:00 03:00 Pulse 59 53 51 Resp 19 17 17 B/P (MAP) 154/84 (107) 145/78 (100) 147/80 (102) Pulse Ox 94 96 94 96 O2 Delivery Ventilator Ventilator Ventilator Ventilator 08/07/18 08/07/18 08/07/18 08/07/18 03:55 04:00 04:00 05:00 Temp 98.3 98.3 Pulse 45 46 Resp 17 17 B/P (MAP) 150/89 (109) 149/80 (103) Pulse Ox 96 97 96 O2 Delivery Ventilator Ventilator Mechanical Ventilator Ventilator 08/07/18 08/07/18 08/07/18 08/07/18 05:50 06:00 07:00 07:45 Pulse 52 46 Resp 17 18 B/P (MAP) 164/89 (114) 141/78 (99) Pulse Ox 97 96 95 96 O2 Delivery Ventilator Ventilator Ventilator Ventilator 08/07/18 08/07/18 08/07/18 08/07/18 08:00 09:06 09:07 09:45 Pulse 93 Resp 18 18 B/P (MAP) 170/93 Pulse Ox 96 96 O2 Delivery Mechanical Ventilator Ventilator Ventilator Intake and Output 9/11/1108/06/18 08/07/18 15:00 23:00 07:00 Intake Total 430 ml 2118.0 ml 1668 ml Output Total 1975 ml 1370 ml 1830 ml Balance -1545 ml 748.0 ml -162 ml JAIORN DUENAS III DO Aug 07, 2018 11:19
--- NOTE | 2018-08-07 12:44 | PDOC ---
Objective: Objective: Reviewed w/ RN - tolerating tube feeds, stooled yesterday, didn't tolerate trial off sedation. Vital Signs: Vital Signs Date Time Temp Pulse Resp B/P (MAP) Pulse Ox O2 Delivery O2 Flow Rate FiO2 08/07/18 12:00 Mechanical Ventilator 08/07/18 11:40 83 08/07/18 09:45 18 08/07/18 09:07 93 170/93 08/07/18 04:00 98.3 98.3 08/06/18 09:24 3.0 Labs: Laboratory Tests Test 08/06/18 17:30 08/07/18 01:10 08/07/18 06:06 08/07/18 12:03 Glucose (Fingerstick) 145 mg/dL (70-99) 167 mg/dL (70-99) 175 mg/dL (70-99) 137 mg/dL (70-99) Imaging: CXR 08/07 IMPRESSION: 1. Stable tube positions. 2. Slight interval worsening of the pulmonary infiltrates suggesting pulmonary edema and/or pneumonia. PE: GEN: intubated LUNGS: vent HEART: RRR ABD: soft, BS+ NEURO/PSYCH: eyes flutter open, stirring A/P: ARDS, h/o PEG - tolerating OGT feeds -- Stable GI-rueda. ANGE VILLEDA Aug 07, 2018 12:44
[2018-08-07] MEDS: HALOPERIDOL LACTATE 5 MG/ML VIAL. IVP PRN (22:00)
[2018-08-07] MEDS: MIDAZOLAM HCL/PF 2 MG/2 ML VIAL. IV PRN (23:07)
[2018-08-08] VITALS (23 sets, daily range): BP systolic 102–136; BP diastolic 42–71
[2018-08-08] MEDS: ENOXAPARIN 40 MG/0.4 ML SYRINGE. SQ SCH ×3 (01:19→23:56)
[2018-08-08] MEDS: PROPOFOL 100 ML IV PRN ×8 (01:20→23:57)
[2018-08-08] MEDS: INSULIN LISPRO 300 UNITS/3 ML INSULN.PEN. SQ SCH ×4 (01:20→18:14)
[2018-08-08] MEDS: MIDAZOLAM HCL/PF 2 MG/2 ML VIAL. IV PRN ×3 (02:49→11:28)
[2018-08-08 05:30] LABS: BASO # 0.1 x10^3/uL (0.0-0.2); BASO % 1 % (0-3); EOS % 0 % (0-3); HEMATOCRIT 32.4 % (36.0-47.0); HEMOGLOBIN 10.8 g/dL (12.0-15.5); LYMPH # 2.1 x10^3/uL (1.0-4.8); LYMPH % 17 % (24-48); MEAN CORPUSCULAR HEMOGLOBIN 27 pg (25-35); MEAN CORPUSCULAR HGB CONC 33 g/dL (31-37); MEAN CORPUSCULAR VOLUME 81 fL (79-100); MONO # 0.6 x10^3/uL (0.0-1.1); MONO % 5 % (0-9); NEUT # 9.6 x10^3uL (1.8-7.7); NEUT % 78 % (31-73); PLATELET COUNT 255 x10^3/uL (140-400); RED BLOOD COUNT 3.98 x10^6/uL (3.50-5.40); WHITE BLOOD COUNT 12.4 x10^3/uL (4.0-11.0)
[2018-08-08 05:42] LABS: CALCIUM 8.7 mg/dL (8.5-10.1); CREATININE 0.5 mg/dL (0.6-1.0); GFR 144.9; POTASSIUM 3.8 mmol/L (3.5-5.1)
[2018-08-08] MEDS: methylPREDNISolone SOD SUCC PF 125 MG/2 ML VIAL. IV SCH ×3 (06:10→21:09)
[2018-08-08] MEDS: BUDESONIDE 0.5 MG/2 ML NEBU. NEB SCH ×2 (07:24→19:19)
[2018-08-08] MEDS: IPRATRPIUM/ALBUTEROL 0.5/2.5MG 3 ML NEBU. NEB SCH ×4 (07:24→19:19)
[2018-08-08 07:48] LABS: BASE EXCESS ABG 5 mmol/L (-3-3); HCO3 ABG 29 mmol/L (21-28); PCO2 ABG 38 mmHg (35-46); PO2 ABG 62 mmHg (85-108); SAT O2 ABG 92 % (92-99)
--- NOTE | 2018-08-08 08:11 | PDOC ---
Infectious Disease Note Subjective Subjective pt is intubated on vent ROS ROS no n/v/d/sob Vital Sign Vital Signs Vital Signs Date Time Temp Pulse Resp B/P (MAP) Pulse Ox O2 Delivery O2 Flow Rate FiO2 08/08/18 07:25 94 Ventilator 08/08/18 07:19 18 08/08/18 06:00 65 114/56 (75) 08/08/18 04:00 98.6 98.6 Physical Exam PHYSICAL EXAM CONSTITUTIONAL: She is intubated. She is lightly sedated. HEENT: Pupils are equal and reactive. NECK: Supple. She has a right IJ without signs of any complications. No JVD. LUNGS: Decreased at bases. HEART: S1, S2, mild tachycardic. ABDOMEN: Obese, soft, nontender, nondistended, positive bowel sounds. King without signs of complications. EXTREMITIES: No clubbing, cyanosis or gross edema. SKIN: Without signs of rash. NEUROLOGIC: She was somewhat alert, moving around a little bit, but she is sedated Labs Lab Laboratory Tests Test 08/07/18 12:03 08/07/18 17:16 08/08/18 00:55 08/08/18 05:15 Glucose (Fingerstick) 137 mg/dL (70-99) 158 mg/dL (70-99) 164 mg/dL (70-99) White Blood Count 12.4 x10^3/uL (4.0-11.0) Red Blood Count 3.98 x10^6/uL (3.50-5.40) Hemoglobin 10.8 g/dL (12.0-15.5) Hematocrit 32.4 % (36.0-47.0) Mean Corpuscular Volume 81 fL (79-100) Mean Corpuscular Hemoglobin 27 pg (25-35) Mean Corpuscular Hemoglobin Concent 33 g/dL (31-37) Red Cell Distribution Width 14.0 % (11.5-14.5) Platelet Count 255 x10^3/uL (140-400) Neutrophils (%) (Auto) 78 % (31-73) Lymphocytes (%) (Auto) 17 % (24-48) Monocytes (%) (Auto) 5 % (0-9) Eosinophils (%) (Auto) 0 % (0-3) Basophils (%) (Auto) 1 % (0-3) Neutrophils # (Auto) 9.6 x10^3uL (1.8-7.7) Lymphocytes # (Auto) 2.1 x10^3/uL (1.0-4.8) Monocytes # (Auto) 0.6 x10^3/uL (0.0-1.1) Eosinophils # (Auto) 0.0 x10^3/uL (0.0-0.7) Basophils # (Auto) 0.1 x10^3/uL (0.0-0.2) Sodium Level 140 mmol/L (136-145) Potassium Level 3.8 mmol/L (3.5-5.1) Chloride Level 102 mmol/L (98-107) Carbon Dioxide Level 30 mmol/L (21-32) Anion Gap 8 (6-14) Blood Urea Nitrogen 18 mg/dL (7-20) Creatinine 0.5 mg/dL (0.6-1.0) Estimated GFR (Cockcroft-Gault) 144.9 Glucose Level 170 mg/dL (70-99) Calcium Level 8.7 mg/dL (8.5-10.1) Micro Microbiology 07/28/18 Blood Culture - Final, Complete NO GROWTH AFTER 5 DAYS Objective Assessment 1. Leukocytosis, 2. Acute respiratory failure, intubated. 3. Community-acquired pneumonia. Rhino virus + 4. Transaminitis. 5. Morbid obesity. 6. h/o Asthma Plan Plan of Care off antibiotics influenza neg strep antigen/Legionella/Mycoplasma,, neg Rhino virus positive F/u labs and cults PAULO CHIN MD Aug 08, 2018 08:11
[2018-08-08] MEDS: PANTOPRAZOLE IV PUSH 40 MG VIAL. IVP SCH (08:22)
[2018-08-08] MEDS: CHLORHEXIDINE 0.12% 15 ML MOUTHWASH. MM SCH ×2 (08:23→21:09)
[2018-08-08] MEDS: CITALOPRAM 20 MG TABLET. PO SCH (08:23)
[2018-08-08] MEDS: amLODIPine BESYLATE 2.5 MG TABLET PO SCH (08:24)
[2018-08-08] MEDS: ALPRAZolam 0.25 MG TABLET PO PRN (08:24)
[2018-08-08 08:34] LABS: FIO2 ABG 40
--- NOTE | 2018-08-08 08:38 | RAD ---
Portable chest, 08/08/2018: HISTORY: Acute respiratory distress Comparison is made to yesterday's study. The ET tube, NG tube and right jugular central venous catheter are unchanged in positions. The heart is enlarged. There are moderate ongoing pulmonary infiltrates, left greater than right, with no improvement. There is probably a component of left-sided pleural fluid. The underlying pulmonary vascularity is poorly defined. The findings again suggest pulmonary edema and/or pneumonia. No new abnormality is seen. IMPRESSION: No significant change since yesterday's study. Electronically signed by: Genaro Moreno MD (08/08/2018 8:35 AM) [facility]
--- NOTE | 2018-08-08 08:41 | PDOC ---
PULMONARY PROGRESS NOTES Subjective patient intubated 07/30 after progressive hypoxia and failed BIPAP 50% FIO2/ PEEP DOWN TO 5 Vitals Vital Signs Date Time Temp Pulse Resp B/P (MAP) Pulse Ox O2 Delivery O2 Flow Rate FiO2 08/08/18 08:24 58 111/52 08/08/18 08:22 18 94 Ventilator 08/08/18 04:00 98.6 98.6 HEENT: Other (nc at perrl. nose throat clear.... neck, no lad, no thyromegaly) Lungs: Crackles Cardiovascular: S1, S2 Abdomen: Soft, Non-tender, Other (no mass) Extremities: Other (trace edema) Skin: Warm Labs Laboratory Tests Test 08/06/18 08:45 08/06/18 12:21 08/06/18 17:30 08/07/18 01:10 O2 Saturation 97 % (92-99) Arterial Blood pH 7.48 (7.35-7.45) Arterial Blood pCO2 at Patient Temp 37 mmHg (35-46) Arterial Blood pO2 at Patient Temp 99 mmHg (85-108) Arterial Blood HCO3 27 mmol/L (21-28) Arterial Blood Base Excess 3 mmol/L (-3-3) FiO2 50 Glucose (Fingerstick) 154 mg/dL (70-99) 145 mg/dL (70-99) 167 mg/dL (70-99) Test 08/07/18 06:06 08/07/18 06:20 08/07/18 08:00 08/07/18 12:03 Glucose (Fingerstick) 175 mg/dL (70-99) 137 mg/dL (70-99) White Blood Count 11.6 x10^3/uL (4.0-11.0) Red Blood Count 3.96 x10^6/uL (3.50-5.40) Hemoglobin 11.0 g/dL (12.0-15.5) Hematocrit 32.1 % (36.0-47.0) Mean Corpuscular Volume 81 fL (79-100) Mean Corpuscular Hemoglobin 28 pg (25-35) Mean Corpuscular Hemoglobin Concent 34 g/dL (31-37) Red Cell Distribution Width 13.7 % (11.5-14.5) Platelet Count 274 x10^3/uL (140-400) Neutrophils (%) (Auto) 74 % (31-73) Lymphocytes (%) (Auto) 18 % (24-48) Monocytes (%) (Auto) 7 % (0-9) Eosinophils (%) (Auto) 1 % (0-3) Basophils (%) (Auto) 1 % (0-3) Neutrophils # (Auto) 8.6 x10^3uL (1.8-7.7) Lymphocytes # (Auto) 2.0 x10^3/uL (1.0-4.8) Monocytes # (Auto) 0.8 x10^3/uL (0.0-1.1) Eosinophils # (Auto) 0.1 x10^3/uL (0.0-0.7) Basophils # (Auto) 0.1 x10^3/uL (0.0-0.2) Sodium Level 140 mmol/L (136-145) Potassium Level 3.8 mmol/L (3.5-5.1) Chloride Level 102 mmol/L (98-107) Carbon Dioxide Level 29 mmol/L (21-32) Anion Gap 9 (6-14) Blood Urea Nitrogen 15 mg/dL (7-20) Creatinine 0.5 mg/dL (0.6-1.0) Estimated GFR (Cockcroft-Gault) 144.9 Glucose Level 181 mg/dL (70-99) Calcium Level 8.8 mg/dL (8.5-10.1) O2 Saturation 96 % (92-99) Arterial Blood pH 7.48 (7.35-7.45) Arterial Blood pCO2 at Patient Temp 35 mmHg (35-46) Arterial Blood pO2 at Patient Temp 81 mmHg (85-108) Arterial Blood HCO3 25 mmol/L (21-28) Arterial Blood Base Excess 2 mmol/L (-3-3) FiO2 vent 50% Test 08/07/18 17:16 08/08/18 00:55 08/08/18 05:15 08/08/18 08:00 Glucose (Fingerstick) 158 mg/dL (70-99) 164 mg/dL (70-99) White Blood Count 12.4 x10^3/uL (4.0-11.0) Red Blood Count 3.98 x10^6/uL (3.50-5.40) Hemoglobin 10.8 g/dL (12.0-15.5) Hematocrit 32.4 % (36.0-47.0) Mean Corpuscular Volume 81 fL (79-100) Mean Corpuscular Hemoglobin 27 pg (25-35) Mean Corpuscular Hemoglobin Concent 33 g/dL (31-37) Red Cell Distribution Width 14.0 % (11.5-14.5) Platelet Count 255 x10^3/uL (140-400) Neutrophils (%) (Auto) 78 % (31-73) Lymphocytes (%) (Auto) 17 % (24-48) Monocytes (%) (Auto) 5 % (0-9) Eosinophils (%) (Auto) 0 % (0-3) Basophils (%) (Auto) 1 % (0-3) Neutrophils # (Auto) 9.6 x10^3uL (1.8-7.7) Lymphocytes # (Auto) 2.1 x10^3/uL (1.0-4.8) Monocytes # (Auto) 0.6 x10^3/uL (0.0-1.1) Eosinophils # (Auto) 0.0 x10^3/uL (0.0-0.7) Basophils # (Auto) 0.1 x10^3/uL (0.0-0.2) Sodium Level 140 mmol/L (136-145) Potassium Level 3.8 mmol/L (3.5-5.1) Chloride Level 102 mmol/L (98-107) Carbon Dioxide Level 30 mmol/L (21-32) Anion Gap 8 (6-14) Blood Urea Nitrogen 18 mg/dL (7-20) Creatinine 0.5 mg/dL (0.6-1.0) Estimated GFR (Cockcroft-Gault) 144.9 Glucose Level 170 mg/dL (70-99) Calcium Level 8.7 mg/dL (8.5-10.1) O2 Saturation 92 % (92-99) Arterial Blood pH 7.49 (7.35-7.45) Arterial Blood pCO2 at Patient Temp 38 mmHg (35-46) Arterial Blood pO2 at Patient Temp 62 mmHg (85-108) Arterial Blood HCO3 29 mmol/L (21-28) Arterial Blood Base Excess 5 mmol/L (-3-3) FiO2 40 Laboratory Tests Test 08/07/18 12:03 08/07/18 17:16 08/08/18 00:55 08/08/18 05:15 Glucose (Fingerstick) 137 mg/dL (70-99) 158 mg/dL (70-99) 164 mg/dL (70-99) White Blood Count 12.4 x10^3/uL (4.0-11.0) Red Blood Count 3.98 x10^6/uL (3.50-5.40) Hemoglobin 10.8 g/dL (12.0-15.5) Hematocrit 32.4 % (36.0-47.0) Mean Corpuscular Volume 81 fL (79-100) Mean Corpuscular Hemoglobin 27 pg (25-35) Mean Corpuscular Hemoglobin Concent 33 g/dL (31-37) Red Cell Distribution Width 14.0 % (11.5-14.5) Platelet Count 255 x10^3/uL (140-400) Neutrophils (%) (Auto) 78 % (31-73) Lymphocytes (%) (Auto) 17 % (24-48) Monocytes (%) (Auto) 5 % (0-9) Eosinophils (%) (Auto) 0 % (0-3) Basophils (%) (Auto) 1 % (0-3) Neutrophils # (Auto) 9.6 x10^3uL (1.8-7.7) Lymphocytes # (Auto) 2.1 x10^3/uL (1.0-4.8) Monocytes # (Auto) 0.6 x10^3/uL (0.0-1.1) Eosinophils # (Auto) 0.0 x10^3/uL (0.0-0.7) Basophils # (Auto) 0.1 x10^3/uL (0.0-0.2) Sodium Level 140 mmol/L (136-145) Potassium Level 3.8 mmol/L (3.5-5.1) Chloride Level 102 mmol/L (98-107) Carbon Dioxide Level 30 mmol/L (21-32) Anion Gap 8 (6-14) Blood Urea Nitrogen 18 mg/dL (7-20) Creatinine 0.5 mg/dL (0.6-1.0) Estimated GFR (Cockcroft-Gault) 144.9 Glucose Level 170 mg/dL (70-99) Calcium Level 8.7 mg/dL (8.5-10.1) Test 08/08/18 08:00 O2 Saturation 92 % (92-99) Arterial Blood pH 7.49 (7.35-7.45) Arterial Blood pCO2 at Patient Temp 38 mmHg (35-46) Arterial Blood pO2 at Patient Temp 62 mmHg (85-108) Arterial Blood HCO3 29 mmol/L (21-28) Arterial Blood Base Excess 5 mmol/L (-3-3) FiO2 40 Medications Active Scripts Medications Dose Route/Sig Max Daily Dose Days Date Category Dose Instructions Topiramate 25 Mg Tablet 1 Tab PO HS 07/28/18 Reported Phentermine Hcl 37.5 Mg Capsule 1 Cap PO [id number] 07/28/18 Reported Metformin Hcl 500 Mg Tablet 500 Mg PO BIDWMEALS 07/28/18 Reported Motrin Ib (Ibuprofen) 200 Mg Tablet 800 Mg PO Q8H PRN 08/15/17 Rx Tessalon Perle (Benzonatate) 100 Mg Capsule 100 Mg PO TID PRN 01/11/17 Rx Prednisone 20 Mg Tablet 40 Mg PO DAILY 08/06/16 Rx START MEDICATIONS ON 08/07/2016 Medrol (Methylprednisolone) 4 Mg Tab.ds.pk 1 Pkg PO UD 11/16/14 Rx Levaquin (Levofloxacin) 750 Mg Tablet 750 Mg PO DAILY06 11/16/14 Rx Advair 250-50 Diskus (Fluticasone/Salmeterol) 1 Puff Puff 1 Puff INH BID 11/16/14 Rx Escitalopram Oxalate 20 Mg Tablet 1 Tab PO DAILY 11/09/14 Reported Xanax (Alprazolam) 0.25 Mg Tablet 0.25 Mg PO PRN Q6HRS PRN 11/09/14 Reported Impression . 1. Acute respiratory failure requiring mechanical ventilation 07/30. ARDS/ diffuse pneumonia 2. Acute exacerbation of chronic obstructive pulmonary disease with an asthma component. 3. abnl cxr, Diffuse lung infiltrates, suspect diffuse lung pneumonia/ ARDS 4. Morbid obesity, body mass index of 40, prob ji. 5. H/O Anxiety/panic attacks. 6. Status post cholecystectomy. CHEST XRAY Comparison is made to yesterday's study. The ET tube tip lies several centimeters above the tom. An NG tube extends into the stomach. A right jugular central venous catheter extends into the right atrium. The heart is mildly enlarged and unchanged. There are ongoing bibasilar pulmonary infiltrates, left greater than right. There may be pleural fluid inferiorly in the left basilar opacity. No new abnormality is seen. CXR Comparison is made to yesterday's study. The ET tube, NG tube and right jugular central venous catheter are unchanged in positions. The heart is enlarged. There are moderate ongoing pulmonary infiltrates, left greater than right, with no improvement. There is probably a component of left-sided pleural fluid. The underlying pulmonary vascularity is poorly defined. The findings again suggest pulmonary edema and/or pneumonia. No new abnormality is seen. Plan . NOT IMPROVING CT CHEST PENDING WILL NEED A TRACH NEXT WEEK DECREASE 02 AGITATED AT TIMES WILL CHANGE TO VERSED OXYGENATION IS IMPROVING WILL CONTINUE SUPPORT CCT 30 MIN DESI HERNÁNDEZ MD Aug 08, 2018 08:41
--- NOTE | 2018-08-08 10:28 | PDOC ---
PROGRESS NOTES Chief Complaint Chief Complaint Acute hypoxic respiratory failure with intubation Sepsis Pneumonia EZ lobe Acute asthma exacerbation Obesity Possible ileus Transaminitis, NOS History of Present Illness History of Present Illness Pt seen and examined in ICU Dw RN Pt sedated on ventilator A/C/18/550/40% w/ 5 PEEP Vitals Vitals Vital Signs Date Time Temp Pulse Resp B/P (MAP) Pulse Ox O2 Delivery O2 Flow Rate FiO2 08/08/18 09:12 94 Ventilator 08/08/18 08:24 58 111/52 08/08/18 08:22 18 08/08/18 04:00 98.6 98.6 Physical Exam General: No acute distress, Other (sedated on ventilator) Heart: Regular rate, Normal S1, Normal S2 Lungs: Crackles Abdomen: Normal bowel sounds, Soft Extremities: No cyanosis, No edema, Normal pulses Skin: No rashes, No significant lesion Labs LABS Laboratory Tests Test 08/07/18 12:03 08/07/18 17:16 08/08/18 00:55 08/08/18 05:15 Glucose (Fingerstick) 137 mg/dL (70-99) 158 mg/dL (70-99) 164 mg/dL (70-99) White Blood Count 12.4 x10^3/uL (4.0-11.0) Red Blood Count 3.98 x10^6/uL (3.50-5.40) Hemoglobin 10.8 g/dL (12.0-15.5) Hematocrit 32.4 % (36.0-47.0) Mean Corpuscular Volume 81 fL (79-100) Mean Corpuscular Hemoglobin 27 pg (25-35) Mean Corpuscular Hemoglobin Concent 33 g/dL (31-37) Red Cell Distribution Width 14.0 % (11.5-14.5) Platelet Count 255 x10^3/uL (140-400) Neutrophils (%) (Auto) 78 % (31-73) Lymphocytes (%) (Auto) 17 % (24-48) Monocytes (%) (Auto) 5 % (0-9) Eosinophils (%) (Auto) 0 % (0-3) Basophils (%) (Auto) 1 % (0-3) Neutrophils # (Auto) 9.6 x10^3uL (1.8-7.7) Lymphocytes # (Auto) 2.1 x10^3/uL (1.0-4.8) Monocytes # (Auto) 0.6 x10^3/uL (0.0-1.1) Eosinophils # (Auto) 0.0 x10^3/uL (0.0-0.7) Basophils # (Auto) 0.1 x10^3/uL (0.0-0.2) Sodium Level 140 mmol/L (136-145) Potassium Level 3.8 mmol/L (3.5-5.1) Chloride Level 102 mmol/L (98-107) Carbon Dioxide Level 30 mmol/L (21-32) Anion Gap 8 (6-14) Blood Urea Nitrogen 18 mg/dL (7-20) Creatinine 0.5 mg/dL (0.6-1.0) Estimated GFR (Cockcroft-Gault) 144.9 Glucose Level 170 mg/dL (70-99) Calcium Level 8.7 mg/dL (8.5-10.1) Test 08/08/18 08:00 O2 Saturation 92 % (92-99) Arterial Blood pH 7.49 (7.35-7.45) Arterial Blood pCO2 at Patient Temp 38 mmHg (35-46) Arterial Blood pO2 at Patient Temp 62 mmHg (85-108) Arterial Blood HCO3 29 mmol/L (21-28) Arterial Blood Base Excess 5 mmol/L (-3-3) FiO2 40 Review of Systems Review of Systems Pt sedated on ventilator Assessment and Plan Assessmemt and Plan Problems Medical Problems: (1) Pneumonia Status: Acute Acute hypoxic respiratory failure with intubation Sepsis Pneumonia EZ lobe Acute asthma exacerbation Obesity Possible ileus Transaminitis, NOS Plan: ICU monitoring Vent weaning Propofol sedation Abx OG feeding King to bedside drainage Labs Comment Review of Relevant I have reviewed the following items [place] (where applicable) has been applied. Labs Laboratory Tests Test 08/06/18 12:21 08/06/18 17:30 08/07/18 01:10 08/07/18 06:06 Glucose (Fingerstick) 154 mg/dL (70-99) 145 mg/dL (70-99) 167 mg/dL (70-99) 175 mg/dL (70-99) Test 08/07/18 06:20 08/07/18 08:00 08/07/18 12:03 08/07/18 17:16 White Blood Count 11.6 x10^3/uL (4.0-11.0) Red Blood Count 3.96 x10^6/uL (3.50-5.40) Hemoglobin 11.0 g/dL (12.0-15.5) Hematocrit 32.1 % (36.0-47.0) Mean Corpuscular Volume 81 fL (79-100) Mean Corpuscular Hemoglobin 28 pg (25-35) Mean Corpuscular Hemoglobin Concent 34 g/dL (31-37) Red Cell Distribution Width 13.7 % (11.5-14.5) Platelet Count 274 x10^3/uL (140-400) Neutrophils (%) (Auto) 74 % (31-73) Lymphocytes (%) (Auto) 18 % (24-48) Monocytes (%) (Auto) 7 % (0-9) Eosinophils (%) (Auto) 1 % (0-3) Basophils (%) (Auto) 1 % (0-3) Neutrophils # (Auto) 8.6 x10^3uL (1.8-7.7) Lymphocytes # (Auto) 2.0 x10^3/uL (1.0-4.8) Monocytes # (Auto) 0.8 x10^3/uL (0.0-1.1) Eosinophils # (Auto) 0.1 x10^3/uL (0.0-0.7) Basophils # (Auto) 0.1 x10^3/uL (0.0-0.2) Sodium Level 140 mmol/L (136-145) Potassium Level 3.8 mmol/L (3.5-5.1) Chloride Level 102 mmol/L (98-107) Carbon Dioxide Level 29 mmol/L (21-32) Anion Gap 9 (6-14) Blood Urea Nitrogen 15 mg/dL (7-20) Creatinine 0.5 mg/dL (0.6-1.0) Estimated GFR (Cockcroft-Gault) 144.9 Glucose Level 181 mg/dL (70-99) Calcium Level 8.8 mg/dL (8.5-10.1) O2 Saturation 96 % (92-99) Arterial Blood pH 7.48 (7.35-7.45) Arterial Blood pCO2 at Patient Temp 35 mmHg (35-46) Arterial Blood pO2 at Patient Temp 81 mmHg (85-108) Arterial Blood HCO3 25 mmol/L (21-28) Arterial Blood Base Excess 2 mmol/L (-3-3) FiO2 vent 50% Glucose (Fingerstick) 137 mg/dL (70-99) 158 mg/dL (70-99) Test 08/08/18 00:55 08/08/18 05:15 08/08/18 08:00 Glucose (Fingerstick) 164 mg/dL (70-99) White Blood Count 12.4 x10^3/uL (4.0-11.0) Red Blood Count 3.98 x10^6/uL (3.50-5.40) Hemoglobin 10.8 g/dL (12.0-15.5) Hematocrit 32.4 % (36.0-47.0) Mean Corpuscular Volume 81 fL (79-100) Mean Corpuscular Hemoglobin 27 pg (25-35) Mean Corpuscular Hemoglobin Concent 33 g/dL (31-37) Red Cell Distribution Width 14.0 % (11.5-14.5) Platelet Count 255 x10^3/uL (140-400) Neutrophils (%) (Auto) 78 % (31-73) Lymphocytes (%) (Auto) 17 % (24-48) Monocytes (%) (Auto) 5 % (0-9) Eosinophils (%) (Auto) 0 % (0-3) Basophils (%) (Auto) 1 % (0-3) Neutrophils # (Auto) 9.6 x10^3uL (1.8-7.7) Lymphocytes # (Auto) 2.1 x10^3/uL (1.0-4.8) Monocytes # (Auto) 0.6 x10^3/uL (0.0-1.1) Eosinophils # (Auto) 0.0 x10^3/uL (0.0-0.7) Basophils # (Auto) 0.1 x10^3/uL (0.0-0.2) Sodium Level 140 mmol/L (136-145) Potassium Level 3.8 mmol/L (3.5-5.1) Chloride Level 102 mmol/L (98-107) Carbon Dioxide Level 30 mmol/L (21-32) Anion Gap 8 (6-14) Blood Urea Nitrogen 18 mg/dL (7-20) Creatinine 0.5 mg/dL (0.6-1.0) Estimated GFR (Cockcroft-Gault) 144.9 Glucose Level 170 mg/dL (70-99) Calcium Level 8.7 mg/dL (8.5-10.1) O2 Saturation 92 % (92-99) Arterial Blood pH 7.49 (7.35-7.45) Arterial Blood pCO2 at Patient Temp 38 mmHg (35-46) Arterial Blood pO2 at Patient Temp 62 mmHg (85-108) Arterial Blood HCO3 29 mmol/L (21-28) Arterial Blood Base Excess 5 mmol/L (-3-3) FiO2 40 Laboratory Tests Test 08/07/18 12:03 08/07/18 17:16 08/08/18 00:55 08/08/18 05:15 Glucose (Fingerstick) 137 mg/dL (70-99) 158 mg/dL (70-99) 164 mg/dL (70-99) White Blood Count 12.4 x10^3/uL (4.0-11.0) Red Blood Count 3.98 x10^6/uL (3.50-5.40) Hemoglobin 10.8 g/dL (12.0-15.5) Hematocrit 32.4 % (36.0-47.0) Mean Corpuscular Volume 81 fL (79-100) Mean Corpuscular Hemoglobin 27 pg (25-35) Mean Corpuscular Hemoglobin Concent 33 g/dL (31-37) Red Cell Distribution Width 14.0 % (11.5-14.5) Platelet Count 255 x10^3/uL (140-400) Neutrophils (%) (Auto) 78 % (31-73) Lymphocytes (%) (Auto) 17 % (24-48) Monocytes (%) (Auto) 5 % (0-9) Eosinophils (%) (Auto) 0 % (0-3) Basophils (%) (Auto) 1 % (0-3) Neutrophils # (Auto) 9.6 x10^3uL (1.8-7.7) Lymphocytes # (Auto) 2.1 x10^3/uL (1.0-4.8) Monocytes # (Auto) 0.6 x10^3/uL (0.0-1.1) Eosinophils # (Auto) 0.0 x10^3/uL (0.0-0.7) Basophils # (Auto) 0.1 x10^3/uL (0.0-0.2) Sodium Level 140 mmol/L (136-145) Potassium Level 3.8 mmol/L (3.5-5.1) Chloride Level 102 mmol/L (98-107) Carbon Dioxide Level 30 mmol/L (21-32) Anion Gap 8 (6-14) Blood Urea Nitrogen 18 mg/dL (7-20) Creatinine 0.5 mg/dL (0.6-1.0) Estimated GFR (Cockcroft-Gault) 144.9 Glucose Level 170 mg/dL (70-99) Calcium Level 8.7 mg/dL (8.5-10.1) Test 08/08/18 08:00 O2 Saturation 92 % (92-99) Arterial Blood pH 7.49 (7.35-7.45) Arterial Blood pCO2 at Patient Temp 38 mmHg (35-46) Arterial Blood pO2 at Patient Temp 62 mmHg (85-108) Arterial Blood HCO3 29 mmol/L (21-28) Arterial Blood Base Excess 5 mmol/L (-3-3) FiO2 40 Microbiology 07/28/18 Blood Culture - Final, Complete NO GROWTH AFTER 5 DAYS 08/04/18 - Final, Resulted 08/04/18 - Final, Resulted 08/04/18 , Resulted Pending 08/04/18 Gram Stain Evaluation - Final, Resulted 08/04/18 Sputum Culture - Final, Resulted 08/04/18 Sputum Result 1 - Final, Resulted Medications Current Medications Prednisone (Prednisone) 50 mg 1X ONCE PO Last administered on 07/28/18at 06:47; Start 07/28/18 at 07:00; Stop 07/28/18 at 07:01; Status DC Albuterol/ Ipratropium (Duoneb) 3 ml 1X ONCE NEB Last administered on at 06:37; Start 07/28/18 at 07:00; Stop 07/28/18 at 07:01; Status DC Sodium Chloride 1,000 ml @ 1,000 mls/hr 1X ONCE IV Last administered on at 07:03; Start 07/28/18 at 07:00; Stop 07/28/18 at 07:59; Status DC Albuterol Sulfate (Ventolin Neb Soln) 10 mg 1X ONCE CONT NEB Last administered on 07/28/18at 07:25; Start 07/28/18 at 07:00; Stop 07/28/18 at 07:02; Status DC Magnesium Sulfate 50 ml @ 25 mls/hr 1X ONCE IV Last administered on 07/28/18at 07:41; Start 07/28/18 at 07:15; Stop 07/28/18 at 09:14; Status DC Ceftriaxone Sodium 50 ml @ 100 mls/hr 1X ONCE IV Last administered on at 08:52; Start 07/28/18 at 08:15; Stop 07/28/18 at 08:44; Status DC Azithromycin 250 ml @ 250 mls/hr 1X ONCE IV Last administered on 07/28/18at 09: 20; Start 07/28/18 at 08:15; Stop 07/28/18 at 09:14; Status DC Acetaminophen/ Hydrocodone Bitart (Lortab 5/325) 2 tab 1X ONCE PO Last administered on 07/28/18at 08:49; Start 07/28/18 at 08:45; Stop 07/28/18 at 08:46; Status DC Ondansetron HCl (Zofran) 4 mg PRN Q8HRS PRN IV NAUSEA/VOMITING Last administered on 07/28/18at 22:40; Start 07/28/18 at 08:45; Stop 07/29/18 at 08:44; Status DC Acetaminophen (Tylenol) 650 mg PRN Q4HRS PRN PO FEVER Last administered on at 22:40; Start 07/28/18 at 08:45; Stop 07/29/18 at 08:44; Status DC Albuterol/ Ipratropium (Duoneb) 3 ml RTQID NEB Last administered on 07/29/18at 07 :29; Start 07/28/18 at 12:00; Stop 07/29/18 at 10:30; Status DC Acetaminophen/ Hydrocodone Bitart (Lortab 5/325) 2 tab Q6H PRN PO SEVERE PAIN Last administered on 07/29/18at 23:09; Start 07/28/18 at 08:45 Prednisone (Prednisone) 60 mg DAILY PO ; Start 07/29/18 at 09:00; Stop 07/29/18 at 09:00; Status DC Budesonide (Pulmicort) 0.5 mg RTBID NEB Last administered on 08/08/18at 07:24; Start 07/28/18 at 20:00 Budesonide (Pulmicort) 0.5 mg 1X ONCE NEB Last administered on 07/28/18at 11:06 ; Start 07/28/18 at 09:30; Stop 07/28/18 at 09:31; Status DC Albuterol Sulfate (Ventolin Neb Soln) 2.5 mg PRN Q4HRS PRN NEB SHORTNESS OF BREATH; Start 07/28/18 at 09:30 Azithromycin (Zithromax) 250 mg DAILY PO Last administered on 08/01/18at 08:54; Start 07/28/18 at 10:00; Stop 08/01/18 at 09:01; Status DC Alprazolam (Xanax) 0.25 mg PRN Q6HRS PRN PO ANXIETY / AGITATION Last administered on 08/08/18at 08:24; Start 07/28/18 at 12:45 Ibuprofen (Motrin) 800 mg PRN Q8HRS PRN PO PAIN MILD/INFLAMMATION; Start at 12:45 Benzonatate (Tessalon Perle) 100 mg PRN TID PRN PO COUGH 2ND CHOICE; Start 07/28 at 14:00 Citalopram Hydrobromide (CeleXA) 40 mg DAILY PO Last administered on 08/08/18at 08:23; Start 07/28/18 at 13:00 Metformin HCl (Glucophage) 500 mg BIDWMEALS PO Last administered on 07/29/18at 10 :07; Start 07/28/18 at 17:00; Stop 07/31/18 at 08:58; Status DC Promethazine HCl/ Codeine (Phenergan With Codeine) 5 ml PRN Q6HRS PRN PO COUGH 1ST CHOICE Last administered on 07/29/18at 16:25; Start 07/28/18 at 15:30 Guaifenesin (MUCINEX ER with DM) 1 tab BID PO Last administered on 07/30/18at 20: 57; Start 07/28/18 at 21:00; Stop 07/31/18 at 09:47; Status DC Lactobacillus Rhamnosus (Culturelle) 1 cap BID PO Last administered on at 21:44; Start 07/28/18 at 21:00; Stop 07/30/18 at 09:48; Status DC Prednisone (Prednisone) 30 mg DAILY PO Last administered on 07/29/18at 10:06; Start 07/29/18 at 09:00; Stop 07/31/18 at 08:58; Status DC Ceftriaxone Sodium 1 gm/ Dextrose 50 ml @ 100 mls/hr Q24H IV ; Start 07/29/18 at 09:00; Status UNV Ceftriaxone Sodium (Rocephin) 1 gm Q24H IVP Last administered on 07/29/18at 10:06 ; Start 07/29/18 at 09:00; Stop 07/30/18 at 10:07; Status DC Albuterol/ Ipratropium (Duoneb) 3 ml Q4HRS NEB Last administered on 08/02/18at 08 :40; Start 07/29/18 at 12:00; Stop 08/02/18 at 09:31; Status DC Budesonide (Pulmicort) 0.5 mg RTBID NEB ; Start 07/29/18 at 20:00; Status UNV Famotidine (Pepcid) 20 mg QHS PO Last administered on 07/29/18at 21:44; Start 07/29/18 at 21:00; Stop 07/30/18 at 10:10; Status DC Enoxaparin Sodium (Lovenox 40mg Syringe) 40 mg Q12H SQ Last administered on at 01:19; Start 07/29/18 at 12:30 Acetaminophen (Tylenol) 650 mg PRN Q6HRS PRN PO FEVER; Start 07/29/18 at 11:45 Ondansetron HCl (Zofran) 4 mg PRN Q6HRS PRN IV NAUSEA/VOMITING Last administered on 07/29/18at 15:23; Start 07/29/18 at 11:45 Morphine Sulfate (Morphine Sulfate) 2 mg PRN Q2HR PRN IV MODERATE TO SEVERE PAIN; Start 07/29/18 at 11:45 Tramadol HCl (Ultram) 50 mg PRN Q6HRS PRN PO MODERATE PAIN; Start 07/29/18 at 11 :45 Docusate Sodium (Colace) 100 mg PRN DAILY PRN PO CONSTIPATION; Start 07/29/18 at 11:45 Haloperidol Lactate (Haldol Inj) 2 mg PRN Q2HR PRN IVP AGITATION 2ND CHOICE Last administered on 08/01/18at 15:48; Start 07/30/18 at 01:30; Stop 08/07/18 at 21 :38; Status DC Lorazepam (Ativan) 0.25 mg PRN Q1HR PRN IV ANXIETY/AGITATION 1ST CHOICE Last administered on 08/07/18at 06:07; Start 07/30/18 at 01:30 Propofol 100 ml @ As Directed STK-MED ONCE IV ; Start 07/30/18 at 04:12; Stop at 04:13; Status DC Etomidate (Amidate) 20 mg STK-MED ONCE IV ; Start 07/30/18 at 04:18; Stop at 04:19; Status DC Propofol 100 ml @ 0 mls/hr CONT PRN IV PER PROTOCOL Last administered on at 09:30; Start 07/30/18 at 04:30 Chlorhexidine Gluconate (Peridex) 15 ml BID MM Last administered on 08/07/18at 21:57; Start 07/30/18 at 09:00 Midazolam HCl 100 ml @ 0 mls/hr CONT PRN IV PER PROTOCOL Last administered on at 19:14; Start 07/30/18 at 04:30 Piperacillin Sod/ Tazobactam Sod (Zosyn Per Pharmacy) 1 each PRN DAILY PRN MC SEE COMMENTS; Start 07/30/18 at 10:00; Status Cancel Vancomycin HCl (Vanco Per Pharmacy) 1 each PRN DAILY PRN MC SEE COMMENTS Last administered on 08/03/18at 08:31; Start 07/30/18 at 10:00; Stop 08/03/18 at 12:30; Status DC Methylprednisolone Sodium Succinate (SOLU-Medrol 125MG VIAL) 60 mg Q8HRS IV Last administered on 08/03/18at 05:49; Start 07/30/18 at 14:00; Stop 08/03/18 at 06: 32; Status DC Pantoprazole Sodium (PROTONIX VIAL for IV PUSH) 40 mg DAILYAC IVP Last administered on 08/08/18at 08:22; Start 07/30/18 at 10:30 Piperacillin Sod/ Tazobactam Sod 3.375 gm/Sodium Chloride 50 ml @ 100 mls/hr Q6HRS IV Last administered on 08/06/18at 05:35; Start 07/30/18 at 12:00; Stop 11/11 at 07:38; Status DC Vancomycin HCl 2 gm/Sodium Chloride 500 ml @ 250 mls/hr 1X ONCE IV Last administered on 07/30/18at 10:31; Start 07/30/18 at 10:30; Stop 07/30/18 at 12:29; Status DC Vancomycin HCl 1.5 gm/Sodium Chloride 500 ml @ 250 mls/hr Q8H IV Last administered on 07/31/18at 14:10; Start 07/30/18 at 18:30; Stop 07/31/18 at 17:00; Status DC Vancomycin HCl (Vancomycin Trough Level) 1 each 1X ONCE MC Last administered on 07/31/18at 13:30; Start 07/31/18 at 13:30; Stop 07/31/18 at 13:31; Status DC Insulin Human Lispro (HumaLOG) 0-7 UNITS TIDWMEALS SQ ; Start 07/31/18 at 08:00; Stop 07/31/18 at 09:04; Status DC Dextrose (Dextrose 50%-Water Syringe) 12.5 gm PRN Q15MIN PRN IV SEE COMMENTS; Start 07/30/18 at 17:45 Insulin Human Lispro (HumaLOG) 0-7 UNITS Q6HRS SQ Last administered on at 06:12; Start 07/31/18 at 12:00 Vancomycin HCl 1.75 gm/Sodium Chloride 500 ml @ 250 mls/hr Q8H IV Last administered on 08/01/18at 13:48; Start 07/31/18 at 22:00; Stop 08/01/18 at 22:01; Status DC Vancomycin HCl (Vancomycin Trough Level) 1 each 1X ONCE MC Last administered on 08/01/18at 21:01; Start 08/01/18 at 21:30; Stop 08/01/18 at 21:31; Status DC Erythromycin Ethylsuccinate (E.e.s. 200) 200 mg 1X ONCE PEG Last administered on 08/01/18at 12:19; Start 08/01/18 at 13:00; Stop 08/01/18 at 13:01; Status DC Vancomycin HCl 2 gm/Sodium Chloride 500 ml @ 250 mls/hr Q8H IV Last administered on 08/02/18at 22:56; Start 08/01/18 at 22:00; Stop 08/02/18 at 22:59; Status DC Vancomycin HCl (Vancomycin Trough Level) 1 each 1X ONCE MC Last administered on 08/02/18at 21:30; Start 08/02/18 at 21:30; Stop 08/02/18 at 21:31; Status DC Fentanyl Citrate 30 ml @ 0 mls/hr CONT PRN IV PER PROTOCOL Last administered on 08/08/18at 07:19; Start 08/02/18 at 07:00 Enalaprilat (Vasotec Inj) 1.25 mg PRN Q6HRS PRN IVP HYPERTENSION, SEE COMMENTS ; Start 08/02/18 at 09:15 Amlodipine Besylate (Norvasc) 2.5 mg DAILY PO Last administered on 08/08/18at 08 :24; Start 08/02/18 at 10:00 Albuterol/ Ipratropium (Duoneb) 3 ml RTQID NEB Last administered on 08/08/18at 07:24; Start 08/02/18 at 12:00 Vancomycin HCl 1.75 gm/Sodium Chloride 500 ml @ 250 mls/hr Q6H IV Last administered on 08/03/18at 05:53; Start 08/03/18 at 05:00; Stop 08/03/18 at 08:23; Status DC Vancomycin HCl (Vancomycin Trough Level) 1 each 1X ONCE MC ; Start 08/03/18 at 22:30; Stop 08/03/18 at 22:31; Status Cancel Methylprednisolone Sodium Succinate (SOLU-Medrol 125MG VIAL) 40 mg Q8HRS IV Last administered on 08/08/18at 06:10; Start 08/03/18 at 14:00 Vancomycin HCl 2 gm/Sodium Chloride 500 ml @ 250 mls/hr Q8H IV ; Start 08/03/18 at 14:00; Stop 08/03/18 at 14:00; Status DC Azithromycin 500 mg/Sodium Chloride 250 ml @ 250 mls/hr Q24H IV Last administered on 08/05/18at 13:08; Start 08/03/18 at 13:00; Stop 08/06/18 at 07:38 ; Status DC Haloperidol Lactate (Haldol Inj) 5 mg PRN Q6HRS PRN IVP AGITATION 2ND CHOICE Last administered on 08/07/18at 22:00; Start 08/07/18 at 21:45 Midazolam HCl (Versed) 2 mg PRN Q1HR PRN IV SEDATION Last administered on at 08:53; Start 08/07/18 at 21:45 Active Scripts Active Motrin Ib (Ibuprofen) 200 Mg Tablet 800 Mg PO Q8H PRN Tessalon Perle (Benzonatate) 100 Mg Capsule 100 Mg PO TID PRN Prednisone 20 Mg Tablet 40 Mg PO DAILY START MEDICATIONS ON 08/07/2016 Medrol (Methylprednisolone) 4 Mg Tab.ds.pk 1 Pkg PO UD Levaquin (Levofloxacin) 750 Mg Tablet 750 Mg PO DAILY06 Advair 250-50 Diskus (Fluticasone/Salmeterol) 1 Puff Puff 1 Puff INH BID Reported Topiramate 25 Mg Tablet 1 Tab PO HS Phentermine Hcl 37.5 Mg Capsule 1 Cap PO DAILYWBKFT Metformin Hcl 500 Mg Tablet 500 Mg PO BIDWMEALS Escitalopram Oxalate 20 Mg Tablet 1 Tab PO DAILY Xanax (Alprazolam) 0.25 Mg Tablet 0.25 Mg PO PRN Q6HRS PRN Vitals/I & O Vital Sign - Last 24 Hours 08/07/18 08/07/18 08/07/18 08/07/18 11:00 11:40 12:00 12:00 Temp 98.1 98.1 Pulse 52 88 Resp 18 18 B/P (MAP) 129/70 (89) 159/86 (110) Pulse Ox 94 83 94 O2 Delivery Ventilator Ventilator Mechanical Ventilator 08/07/18 08/07/18 08/07/18 08/07/18 13:00 13:38 14:00 15:00 Pulse 92 100 95 Resp 18 18 18 B/P (MAP) 140/80 (100) 131/71 (91) 128/65 (86) Pulse Ox 94 91 92 95 O2 Delivery Ventilator Ventilator Ventilator Ventilator 08/07/18 08/07/18 08/07/18 08/07/18 16:00 16:00 16:48 17:00 Temp 98.6 98.6 Pulse 79 59 Resp 18 18 18 B/P (MAP) 139/73 (95) 122/56 (78) Pulse Ox 95 95 92 O2 Delivery Mechanical Ventilator Ventilator Ventilator Ventilator 08/07/18 08/07/18 08/07/18 08/07/18 18:00 19:00 20:00 20:00 Temp 98.6 98.6 Pulse 61 59 62 Resp 18 18 18 B/P (MAP) 136/73 (94) 119/61 (80) 116/66 (83) Pulse Ox 94 93 95 O2 Delivery Ventilator Ventilator Ventilator Mechanical Ventilator 08/07/18 08/07/18 08/07/18 08/07/18 20:02 20:06 20:40 21:09 Pulse 109 Resp 18 B/P (MAP) 138/71 (93) Pulse Ox 96 96 93 O2 Delivery Ventilator Ventilator Ventilator Ventilator 08/07/18 08/07/18 08/07/18 08/08/18 22:00 23:00 23:19 00:00 Temp 98.7 98.7 Pulse 65 58 65 Resp 18 18 18 B/P (MAP) 109/51 (70) 121/59 (79) 127/66 (86) Pulse Ox 93 93 93 91 O2 Delivery Ventilator Ventilator Ventilator Ventilator 08/08/18 08/08/18 08/08/18 08/08/18 00:00 01:00 01:21 02:00 Pulse 70 66 Resp 18 18 B/P (MAP) 136/59 (84) 121/60 (80) Pulse Ox 92 93 O2 Delivery Mechanical Ventilator Ventilator Ventilator Ventilator 08/08/18 08/08/18 08/08/18 08/08/18 02:38 03:00 04:00 04:00 Temp 98.6 98.6 Pulse 65 63 Resp 18 18 B/P (MAP) 128/62 (84) 127/60 (82) Pulse Ox 92 93 92 O2 Delivery Ventilator Ventilator Mechanical Ventilator Ventilator 08/08/18 08/08/18 08/08/18 08/08/18 04:18 05:00 05:42 06:00 Pulse 68 65 Resp 18 18 B/P (MAP) 130/51 (77) 114/56 (75) Pulse Ox 93 93 94 93 O2 Delivery Ventilator Ventilator Ventilator Ventilator 08/08/18 08/08/18 08/08/18 08/08/18 06:11 07:19 07:25 08:00 Resp 18 Pulse Ox 93 94 O2 Delivery Ventilator Ventilator Ventilator Mechanical Ventilator 08/08/18 08/08/18 08/08/18 08:22 08:24 09:12 Pulse 58 Resp 18 B/P (MAP) 111/52 Pulse Ox 94 94 O2 Delivery Ventilator Ventilator Intake and Output 08/07/18 08/07/18 08/08/18 15:00 23:00 07:00 Intake Total 320 ml 851.64 ml 2146 ml Output Total 1250 ml 1390 ml 1950 ml Balance -930 ml -538.36 ml 196 ml JAIRON DUENAS III DO Aug 08, 2018 10:28
--- NOTE | 2018-08-08 13:12 | PDOC ---
Objective: Objective: Reviewed w/ RN - ?trach Stooled yesterday, ~100cc residual this morning after water flush Vital Signs: Vital Signs Date Time Temp Pulse Resp B/P (MAP) Pulse Ox O2 Delivery O2 Flow Rate FiO2 08/08/18 11:47 18 94 Ventilator 08/08/18 08:24 58 111/52 08/08/18 04:00 98.6 98.6 Labs: Laboratory Tests Test 08/07/18 17:16 08/08/18 00:55 08/08/18 05:15 08/08/18 08:00 Glucose (Fingerstick) 158 mg/dL 164 mg/dL White Blood Count 12.4 x10^3/uL Red Blood Count 3.98 x10^6/uL Hemoglobin 10.8 g/dL Hematocrit 32.4 % Mean Corpuscular Volume 81 fL Mean Corpuscular Hemoglobin 27 pg Mean Corpuscular Hemoglobin Concent 33 g/dL Red Cell Distribution Width 14.0 % Platelet Count 255 x10^3/uL Neutrophils (%) (Auto) 78 % Lymphocytes (%) (Auto) 17 % Monocytes (%) (Auto) 5 % Eosinophils (%) (Auto) 0 % Basophils (%) (Auto) 1 % Neutrophils # (Auto) 9.6 x10^3uL Lymphocytes # (Auto) 2.1 x10^3/uL Monocytes # (Auto) 0.6 x10^3/uL Eosinophils # (Auto) 0.0 x10^3/uL Basophils # (Auto) 0.1 x10^3/uL Sodium Level 140 mmol/L Potassium Level 3.8 mmol/L Chloride Level 102 mmol/L Carbon Dioxide Level 30 mmol/L Anion Gap 8 Blood Urea Nitrogen 18 mg/dL Creatinine 0.5 mg/dL Estimated GFR (Cockcroft-Gault) 144.9 Glucose Level 170 mg/dL Calcium Level 8.7 mg/dL O2 Saturation 92 % Arterial Blood pH 7.49 Arterial Blood pCO2 at Patient Temp 38 mmHg Arterial Blood pO2 at Patient Temp 62 mmHg Arterial Blood HCO3 29 mmol/L Arterial Blood Base Excess 5 mmol/L FiO2 40 Test 08/08/18 11:45 Glucose (Fingerstick) 174 mg/dL Imaging: CXR 08/08 IMPRESSION: No significant change since yesterday's study. PE: GEN: intubated, restless LUNGS: vent HEART:RRR ABD: soft, BS+ A/P: ARDS, -- Continue same per GI. ANGE VILLEDA Aug 08, 2018 13:12
[2018-08-08] MEDS: MIDAZOLAM 100mg/100ml NS BAG 100 ML IV PRN (13:30)
[2018-08-08] MEDS: HALOPERIDOL LACTATE 5 MG/ML VIAL. IVP PRN (16:04)
[2018-08-09] VITALS (24 sets, daily range): BP systolic 99–154; BP diastolic 47–90
[2018-08-09] MEDS: INSULIN LISPRO 300 UNITS/3 ML INSULN.PEN. SQ SCH ×4 (00:01→18:00)
[2018-08-09] MEDS: MIDAZOLAM 100mg/100ml NS BAG 100 ML IV PRN (01:30)
[2018-08-09] MEDS: PROPOFOL 100 ML IV PRN ×2 (04:53→09:43)
[2018-08-09 05:17] LABS: BASO # 0.1 x10^3/uL (0.0-0.2); BASO % 1 % (0-3); EOS % 0 % (0-3); HEMATOCRIT 33.3 % (36.0-47.0); HEMOGLOBIN 10.9 g/dL (12.0-15.5); LYMPH # 2.7 x10^3/uL (1.0-4.8); LYMPH % 19 % (24-48); MEAN CORPUSCULAR HEMOGLOBIN 27 pg (25-35); MEAN CORPUSCULAR HGB CONC 33 g/dL (31-37); MEAN CORPUSCULAR VOLUME 82 fL (79-100); MONO # 0.8 x10^3/uL (0.0-1.1); MONO % 5 % (0-9); NEUT # 10.3 x10^3uL (1.8-7.7); NEUT % 74 % (31-73); PLATELET COUNT 244 x10^3/uL (140-400); RED BLOOD COUNT 4.06 x10^6/uL (3.50-5.40); RED CELL DISTRIBUTION WIDTH 14.1 % (11.5-14.5); WHITE BLOOD COUNT 13.9 x10^3/uL (4.0-11.0)
[2018-08-09 06:11] LABS: CALCIUM 8.6 mg/dL (8.5-10.1); CREATININE 0.5 mg/dL (0.6-1.0); GFR 144.9; POTASSIUM 3.6 mmol/L (3.5-5.1)
--- NOTE | 2018-08-09 06:12 | PDOC ---
PULMONARY PROGRESS NOTES Subjective on vent sedated w propofol, versed, fentanyl, open eyes w verbal stimuli, mod ett secretion, patient intubated 07/30 after progressive hypoxia and failed BIPAP Vitals Vital Signs Date Time Temp Pulse Resp B/P (MAP) Pulse Ox O2 Delivery O2 Flow Rate FiO2 08/09/18 05:29 95 Ventilator 08/09/18 05:08 53 18 116/54 (74) 08/09/18 04:00 98.8 98.8 Comments ros as mentioned as above, discussed w rn, other sys otherwise neg sedated on vent HEENT: Other (nc at perrl. nose throat clear.... neck, no lad, no thyromegaly) Lungs: Crackles Cardiovascular: S1, S2 Abdomen: Soft, Non-tender, Other (no mass) Extremities: Other (trace edema) Skin: Warm Labs Laboratory Tests Test 08/07/18 06:20 08/07/18 08:00 08/07/18 12:03 08/07/18 17:16 White Blood Count 11.6 x10^3/uL (4.0-11.0) Red Blood Count 3.96 x10^6/uL (3.50-5.40) Hemoglobin 11.0 g/dL (12.0-15.5) Hematocrit 32.1 % (36.0-47.0) Mean Corpuscular Volume 81 fL (79-100) Mean Corpuscular Hemoglobin 28 pg (25-35) Mean Corpuscular Hemoglobin Concent 34 g/dL (31-37) Red Cell Distribution Width 13.7 % (11.5-14.5) Platelet Count 274 x10^3/uL (140-400) Neutrophils (%) (Auto) 74 % (31-73) Lymphocytes (%) (Auto) 18 % (24-48) Monocytes (%) (Auto) 7 % (0-9) Eosinophils (%) (Auto) 1 % (0-3) Basophils (%) (Auto) 1 % (0-3) Neutrophils # (Auto) 8.6 x10^3uL (1.8-7.7) Lymphocytes # (Auto) 2.0 x10^3/uL (1.0-4.8) Monocytes # (Auto) 0.8 x10^3/uL (0.0-1.1) Eosinophils # (Auto) 0.1 x10^3/uL (0.0-0.7) Basophils # (Auto) 0.1 x10^3/uL (0.0-0.2) Sodium Level 140 mmol/L (136-145) Potassium Level 3.8 mmol/L (3.5-5.1) Chloride Level 102 mmol/L (98-107) Carbon Dioxide Level 29 mmol/L (21-32) Anion Gap 9 (6-14) Blood Urea Nitrogen 15 mg/dL (7-20) Creatinine 0.5 mg/dL (0.6-1.0) Estimated GFR (Cockcroft-Gault) 144.9 Glucose Level 181 mg/dL (70-99) Calcium Level 8.8 mg/dL (8.5-10.1) O2 Saturation 96 % (92-99) Arterial Blood pH 7.48 (7.35-7.45) Arterial Blood pCO2 at Patient Temp 35 mmHg (35-46) Arterial Blood pO2 at Patient Temp 81 mmHg (85-108) Arterial Blood HCO3 25 mmol/L (21-28) Arterial Blood Base Excess 2 mmol/L (-3-3) FiO2 vent 50% Glucose (Fingerstick) 137 mg/dL (70-99) 158 mg/dL (70-99) Test 08/08/18 00:55 08/08/18 05:15 08/08/18 08:00 08/08/18 11:45 Glucose (Fingerstick) 164 mg/dL (70-99) 174 mg/dL (70-99) White Blood Count 12.4 x10^3/uL (4.0-11.0) Red Blood Count 3.98 x10^6/uL (3.50-5.40) Hemoglobin 10.8 g/dL (12.0-15.5) Hematocrit 32.4 % (36.0-47.0) Mean Corpuscular Volume 81 fL (79-100) Mean Corpuscular Hemoglobin 27 pg (25-35) Mean Corpuscular Hemoglobin Concent 33 g/dL (31-37) Red Cell Distribution Width 14.0 % (11.5-14.5) Platelet Count 255 x10^3/uL (140-400) Neutrophils (%) (Auto) 78 % (31-73) Lymphocytes (%) (Auto) 17 % (24-48) Monocytes (%) (Auto) 5 % (0-9) Eosinophils (%) (Auto) 0 % (0-3) Basophils (%) (Auto) 1 % (0-3) Neutrophils # (Auto) 9.6 x10^3uL (1.8-7.7) Lymphocytes # (Auto) 2.1 x10^3/uL (1.0-4.8) Monocytes # (Auto) 0.6 x10^3/uL (0.0-1.1) Eosinophils # (Auto) 0.0 x10^3/uL (0.0-0.7) Basophils # (Auto) 0.1 x10^3/uL (0.0-0.2) Sodium Level 140 mmol/L (136-145) Potassium Level 3.8 mmol/L (3.5-5.1) Chloride Level 102 mmol/L (98-107) Carbon Dioxide Level 30 mmol/L (21-32) Anion Gap 8 (6-14) Blood Urea Nitrogen 18 mg/dL (7-20) Creatinine 0.5 mg/dL (0.6-1.0) Estimated GFR (Cockcroft-Gault) 144.9 Glucose Level 170 mg/dL (70-99) Calcium Level 8.7 mg/dL (8.5-10.1) O2 Saturation 92 % (92-99) Arterial Blood pH 7.49 (7.35-7.45) Arterial Blood pCO2 at Patient Temp 38 mmHg (35-46) Arterial Blood pO2 at Patient Temp 62 mmHg (85-108) Arterial Blood HCO3 29 mmol/L (21-28) Arterial Blood Base Excess 5 mmol/L (-3-3) FiO2 40 Test 08/08/18 18:10 08/08/18 23:58 08/09/18 05:00 Glucose (Fingerstick) 162 mg/dL (70-99) 164 mg/dL (70-99) White Blood Count 13.9 x10^3/uL (4.0-11.0) Red Blood Count 4.06 x10^6/uL (3.50-5.40) Hemoglobin 10.9 g/dL (12.0-15.5) Hematocrit 33.3 % (36.0-47.0) Mean Corpuscular Volume 82 fL (79-100) Mean Corpuscular Hemoglobin 27 pg (25-35) Mean Corpuscular Hemoglobin Concent 33 g/dL (31-37) Red Cell Distribution Width 14.1 % (11.5-14.5) Platelet Count 244 x10^3/uL (140-400) Neutrophils (%) (Auto) 74 % (31-73) Lymphocytes (%) (Auto) 19 % (24-48) Monocytes (%) (Auto) 5 % (0-9) Eosinophils (%) (Auto) 0 % (0-3) Basophils (%) (Auto) 1 % (0-3) Neutrophils # (Auto) 10.3 x10^3uL (1.8-7.7) Lymphocytes # (Auto) 2.7 x10^3/uL (1.0-4.8) Monocytes # (Auto) 0.8 x10^3/uL (0.0-1.1) Eosinophils # (Auto) 0.0 x10^3/uL (0.0-0.7) Basophils # (Auto) 0.1 x10^3/uL (0.0-0.2) Laboratory Tests Test 08/08/18 08:00 08/08/18 11:45 08/08/18 18:10 08/08/18 23:58 O2 Saturation 92 % (92-99) Arterial Blood pH 7.49 (7.35-7.45) Arterial Blood pCO2 at Patient Temp 38 mmHg (35-46) Arterial Blood pO2 at Patient Temp 62 mmHg (85-108) Arterial Blood HCO3 29 mmol/L (21-28) Arterial Blood Base Excess 5 mmol/L (-3-3) FiO2 40 Glucose (Fingerstick) 174 mg/dL (70-99) 162 mg/dL (70-99) 164 mg/dL (70-99) Test 08/09/18 05:00 White Blood Count 13.9 x10^3/uL (4.0-11.0) Red Blood Count 4.06 x10^6/uL (3.50-5.40) Hemoglobin 10.9 g/dL (12.0-15.5) Hematocrit 33.3 % (36.0-47.0) Mean Corpuscular Volume 82 fL (79-100) Mean Corpuscular Hemoglobin 27 pg (25-35) Mean Corpuscular Hemoglobin Concent 33 g/dL (31-37) Red Cell Distribution Width 14.1 % (11.5-14.5) Platelet Count 244 x10^3/uL (140-400) Neutrophils (%) (Auto) 74 % (31-73) Lymphocytes (%) (Auto) 19 % (24-48) Monocytes (%) (Auto) 5 % (0-9) Eosinophils (%) (Auto) 0 % (0-3) Basophils (%) (Auto) 1 % (0-3) Neutrophils # (Auto) 10.3 x10^3uL (1.8-7.7) Lymphocytes # (Auto) 2.7 x10^3/uL (1.0-4.8) Monocytes # (Auto) 0.8 x10^3/uL (0.0-1.1) Eosinophils # (Auto) 0.0 x10^3/uL (0.0-0.7) Basophils # (Auto) 0.1 x10^3/uL (0.0-0.2) Medications Active Scripts Medications Dose Route/Sig Max Daily Dose Days Date Category Dose Instructions Topiramate 25 Mg Tablet 1 Tab PO HS 07/28/18 Reported Phentermine Hcl 37.5 Mg Capsule 1 Cap PO [id number] 07/28/18 Reported Metformin Hcl 500 Mg Tablet 500 Mg PO BIDWMEALS 07/28/18 Reported Motrin Ib (Ibuprofen) 200 Mg Tablet 800 Mg PO Q8H PRN 08/15/17 Rx Tessalon Perle (Benzonatate) 100 Mg Capsule 100 Mg PO TID PRN 01/11/17 Rx Prednisone 20 Mg Tablet 40 Mg PO DAILY 08/06/16 Rx START MEDICATIONS ON 08/07/2016 Medrol (Methylprednisolone) 4 Mg Tab.ds.pk 1 Pkg PO UD 11/16/14 Rx Levaquin (Levofloxacin) 750 Mg Tablet 750 Mg PO DAILY06 11/16/14 Rx Advair 250-50 Diskus (Fluticasone/Salmeterol) 1 Puff Puff 1 Puff INH BID 11/16/14 Rx Escitalopram Oxalate 20 Mg Tablet 1 Tab PO DAILY 11/09/14 Reported Xanax (Alprazolam) 0.25 Mg Tablet 0.25 Mg PO PRN Q6HRS PRN 11/09/14 Reported Comments cxr reviewed, ett ok, b lat infilt ct reviewed 1. Moderate atelectasis and dense consolidation in both lower lobes and to a lesser degree posteriorly in the upper lobes. Pneumonia is likely. 2. Minimal patchy groundglass opacities in the other aerated portions of both lungs. 3. Cardiomegaly. Impression . 1. Acute respiratory failure requiring mechanical ventilation 07/30. ARDS/ diffuse pneumonia 2. Acute exacerbation of chronic obstructive pulmonary disease with an asthma component. 3. abnl cxr, Diffuse lung infiltrates, suspect diffuse lung pneumonia/ ARDS 4. Morbid obesity, body mass index of 40, prob ji. 5. H/O Anxiety/panic attacks. 6. Status post cholecystectomy. influenza neg strep antigen/Legionella/Mycoplasma,, neg Rhino virus positive Plan . cont vent support, setting reviewed, will wean sedation, sbt when awake CT CHEST TRACH NEXT WEEK if not able to extubate 02 titration to keep sat 94% change solumedrol to q 12hrs BD ICS protonix, lovenox for prophylaxis sputum cx today monitor off abx, id on case discussed w rn, rt MARK WU MD Aug 09, 2018 06:12
[2018-08-09] MEDS: methylPREDNISolone SOD SUCC PF 125 MG/2 ML VIAL. IV SCH (06:29)
[2018-08-09] MEDS: IPRATRPIUM/ALBUTEROL 0.5/2.5MG 3 ML NEBU. NEB SCH ×4 (07:44→19:05)
[2018-08-09] MEDS: BUDESONIDE 0.5 MG/2 ML NEBU. NEB SCH ×2 (07:44→19:05)
[2018-08-09 07:56] LABS: BASE EXCESS ABG 4 mmol/L (-3-3); HCO3 ABG 28 mmol/L (21-28); PCO2 ABG 40 mmHg (35-46); PO2 ABG 67 mmHg (85-108); SAT O2 ABG 93 % (92-99)
[2018-08-09] MEDS: CHLORHEXIDINE 0.12% 15 ML MOUTHWASH. MM SCH ×2 (08:08→21:01)
[2018-08-09] MEDS: CITALOPRAM 20 MG TABLET. PO SCH (08:09)
[2018-08-09] MEDS: PANTOPRAZOLE IV PUSH 40 MG VIAL. IVP SCH (08:09)
[2018-08-09] MEDS: amLODIPine BESYLATE 2.5 MG TABLET PO SCH (08:09)
[2018-08-09 09:04] LABS: FIO2 ABG 40
--- NOTE | 2018-08-09 09:04 | RAD ---
CT of the chest without contrast, 08/08/2018: HISTORY: Respiratory failure Noncontrast scans were obtained as requested and compared to a study from 11/12/2014. An NG tube, ET tube and right jugular central venous catheter are in place as noted on radiographs. There is mild generalized cardiomegaly. A trace amount of pericardial fluid is present. There are calcified mediastinal lymph nodes. No mediastinal adenopathy is seen. The thoracic aorta is of normal caliber. There is a lesser degree of atelectasis and infiltrate posteriorly in both upper lobes. The aerated portions of both upper lobes on the right middle lobe demonstrate minimal patchy groundglass opacities. There is only a tiny amount of associated bilateral pleural fluid. No pneumothorax is evident. There appears to be fatty change in the liver. The spleen is at the upper limits of normal in size. IMPRESSION: 1. Moderate atelectasis and dense consolidation in both lower lobes and to a lesser degree posteriorly in the upper lobes. Pneumonia is likely. 2. Minimal patchy groundglass opacities in the other aerated portions of both lungs. 3. Cardiomegaly. PQRS Compliance Statement: One or more of the following individualized dose reduction techniques were utilized for this examination: 1. Automated exposure control 2. Adjustment of the mA and/or kV according to patient size 3. Use of iterative reconstruction technique Electronically signed by: Genaro Moreno MD (08/09/2018 9:00 AM) [facility]
[2018-08-09 11:12] LABS: BASE EXCESS COOX 3 mmol/L (-3-3); HCO3 COOX 28 mmol/L (21-28); METHEMOGLOBIN 0.3 % (0.0-1.9); OXYHEMOGLOBIN 94.6 %; PCO2 COOX 42 mmHg (35-46); PO2 COOX 79 mmHg (85-108); SAT O2 COOX 95 % (92-99)
--- NOTE | 2018-08-09 11:52 | PDOC ---
Infectious Disease Note Subjective Subjective Temp 99.2 axillary this morning On light sedation and currently on weaning trial, FiO2 40% Tube feedings Denies pain or upset stomach ROS ROS per HPI otherwise limited as patient in intubated Vital Sign Vital Signs Vital Signs Date Time Temp Pulse Resp B/P (MAP) Pulse Ox O2 Delivery O2 Flow Rate FiO2 08/09/18 11:00 60 20 128/63 (84) 96 Ventilator 08/09/18 08:00 3.0 08/09/18 08:00 99.2 99.2 Physical Exam PHYSICAL EXAM GENERAL: Propped up in bed, alert, calm, mitts HEENT: Pupils are equal and reactive, ETT and OGT NECK: Supple. LUNGS: Decreased at bases. HEART: S1, S2 ABDOMEN: Obese, soft, nontender, positive bowel sounds. : King EXTREMITIES: No clubbing, cyanosis or gross edema. SKIN: Without signs of rash. NEUROLOGIC: Alert, nods to simple questions appropriately and follows commands RI (07/30) clean Labs Lab Laboratory Tests Test 08/08/18 11:45 08/08/18 18:10 08/08/18 23:58 08/09/18 05:00 Glucose (Fingerstick) 174 mg/dL (70-99) 162 mg/dL (70-99) 164 mg/dL (70-99) White Blood Count 13.9 x10^3/uL (4.0-11.0) Red Blood Count 4.06 x10^6/uL (3.50-5.40) Hemoglobin 10.9 g/dL (12.0-15.5) Hematocrit 33.3 % (36.0-47.0) Mean Corpuscular Volume 82 fL (79-100) Mean Corpuscular Hemoglobin 27 pg (25-35) Mean Corpuscular Hemoglobin Concent 33 g/dL (31-37) Red Cell Distribution Width 14.1 % (11.5-14.5) Platelet Count 244 x10^3/uL (140-400) Neutrophils (%) (Auto) 74 % (31-73) Lymphocytes (%) (Auto) 19 % (24-48) Monocytes (%) (Auto) 5 % (0-9) Eosinophils (%) (Auto) 0 % (0-3) Basophils (%) (Auto) 1 % (0-3) Neutrophils # (Auto) 10.3 x10^3uL (1.8-7.7) Lymphocytes # (Auto) 2.7 x10^3/uL (1.0-4.8) Monocytes # (Auto) 0.8 x10^3/uL (0.0-1.1) Eosinophils # (Auto) 0.0 x10^3/uL (0.0-0.7) Basophils # (Auto) 0.1 x10^3/uL (0.0-0.2) Sodium Level 138 mmol/L (136-145) Potassium Level 3.6 mmol/L (3.5-5.1) Chloride Level 102 mmol/L (98-107) Carbon Dioxide Level 29 mmol/L (21-32) Anion Gap 7 (6-14) Blood Urea Nitrogen 19 mg/dL (7-20) Creatinine 0.5 mg/dL (0.6-1.0) Estimated GFR (Cockcroft-Gault) 144.9 Glucose Level 144 mg/dL (70-99) Calcium Level 8.6 mg/dL (8.5-10.1) Test 08/09/18 07:50 08/09/18 11:00 08/09/18 11:14 O2 Saturation 93 % (92-99) 95 % (92-99) Arterial Blood pH 7.46 (7.35-7.45) 7.44 (7.35-7.45) Arterial Blood pCO2 at Patient Temp 40 mmHg (35-46) 42 mmHg (35-46) Arterial Blood pO2 at Patient Temp 67 mmHg (85-108) 79 mmHg (85-108) Arterial Blood HCO3 28 mmol/L (21-28) 28 mmol/L (21-28) Arterial Blood Base Excess 4 mmol/L (-3-3) 3 mmol/L (-3-3) FiO2 40 40 Oxyhemoglobin 94.6 % Methemoglobin 0.3 % (0.0-1.9) Carbon Monoxide, Quantitative 0.3 % (0.0-1.9) Glucose (Fingerstick) 170 mg/dL (70-99) Chest CT, 08/08 IMPRESSION: 1. Moderate atelectasis and dense consolidation in both lower lobes and to a lesser degree posteriorly in the upper lobes. Pneumonia is likely. 2. Minimal patchy groundglass opacities in the other aerated portions of both lungs. 3. Cardiomegaly. Micro Microbiology 07/28/18 Blood Culture - Final, Complete NO GROWTH AFTER 5 DAYS 08/04/18 - Final, Resulted 08/04/18 - Final, Resulted 08/04/18 , Resulted Pending 08/04/18 Gram Stain Evaluation - Final, Resulted 08/04/18 Sputum Culture - Final, Resulted 08/04/18 Sputum Result 1 - Final, Resulted Objective Assessment Leukocytosis trending up, on steroids Acute respiratory failure, intubated Community-acquired pneumonia. Rhino virus + on 08/03 -influenza, strep antigen, Legionella & Mycoplasma,, neg Transaminitis. Morbid obesity. h/o Asthma Plan Plan of Care Off antibiotics. Previously on vanc, Zosyn, Rocephin, Levaquin and azithromycin Monitor temp Repeat sputum culture ordered per pulmonary Repeat labs in am Supportive care D/w RN Attending Co-Sign The patient was seen and interviewed as well as examined at the bedside. The chart was reviewed. The case was discussed. Agree with the plan of care. MARYSE RIVERA APRN Aug 09, 2018 11:52 PAULO CHIN MD Aug 09, 2018 12:45
--- NOTE | 2018-08-09 12:27 | PDOC ---
PROGRESS NOTES Chief Complaint Chief Complaint Acute hypoxic respiratory failure with intubation Sepsis Pneumonia EZ lobe Acute asthma exacerbation Obesity Possible ileus Transaminitis, NOS History of Present Illness History of Present Illness Pt seen and examined in ICU Dw RN Pt partially sedated on ventilator Spontaneous w/ 40% O2 w/ 15 P support Vitals Vitals Vital Signs Date Time Temp Pulse Resp B/P (MAP) Pulse Ox O2 Delivery O2 Flow Rate FiO2 08/09/18 12:10 20 94 Ventilator 08/09/18 12:00 99.1 66 128/63 (84) 99.1 08/09/18 08:00 3.0 Physical Exam General: No acute distress, Other (partially sedated, somewhat awake and responsive) Heart: Regular rate, Normal S1, Normal S2 Lungs: Crackles Abdomen: Normal bowel sounds, Soft Extremities: No cyanosis, No edema, Normal pulses Skin: No rashes, No significant lesion Labs LABS Laboratory Tests Test 08/08/18 18:10 08/08/18 23:58 08/09/18 05:00 08/09/18 07:50 Glucose (Fingerstick) 162 mg/dL (70-99) 164 mg/dL (70-99) White Blood Count 13.9 x10^3/uL (4.0-11.0) Red Blood Count 4.06 x10^6/uL (3.50-5.40) Hemoglobin 10.9 g/dL (12.0-15.5) Hematocrit 33.3 % (36.0-47.0) Mean Corpuscular Volume 82 fL (79-100) Mean Corpuscular Hemoglobin 27 pg (25-35) Mean Corpuscular Hemoglobin Concent 33 g/dL (31-37) Red Cell Distribution Width 14.1 % (11.5-14.5) Platelet Count 244 x10^3/uL (140-400) Neutrophils (%) (Auto) 74 % (31-73) Lymphocytes (%) (Auto) 19 % (24-48) Monocytes (%) (Auto) 5 % (0-9) Eosinophils (%) (Auto) 0 % (0-3) Basophils (%) (Auto) 1 % (0-3) Neutrophils # (Auto) 10.3 x10^3uL (1.8-7.7) Lymphocytes # (Auto) 2.7 x10^3/uL (1.0-4.8) Monocytes # (Auto) 0.8 x10^3/uL (0.0-1.1) Eosinophils # (Auto) 0.0 x10^3/uL (0.0-0.7) Basophils # (Auto) 0.1 x10^3/uL (0.0-0.2) Sodium Level 138 mmol/L (136-145) Potassium Level 3.6 mmol/L (3.5-5.1) Chloride Level 102 mmol/L (98-107) Carbon Dioxide Level 29 mmol/L (21-32) Anion Gap 7 (6-14) Blood Urea Nitrogen 19 mg/dL (7-20) Creatinine 0.5 mg/dL (0.6-1.0) Estimated GFR (Cockcroft-Gault) 144.9 Glucose Level 144 mg/dL (70-99) Calcium Level 8.6 mg/dL (8.5-10.1) O2 Saturation 93 % (92-99) Arterial Blood pH 7.46 (7.35-7.45) Arterial Blood pCO2 at Patient Temp 40 mmHg (35-46) Arterial Blood pO2 at Patient Temp 67 mmHg (85-108) Arterial Blood HCO3 28 mmol/L (21-28) Arterial Blood Base Excess 4 mmol/L (-3-3) FiO2 40 Test 08/09/18 11:00 08/09/18 11:14 O2 Saturation 95 % (92-99) Arterial Blood pH 7.44 (7.35-7.45) Arterial Blood pCO2 at Patient Temp 42 mmHg (35-46) Arterial Blood pO2 at Patient Temp 79 mmHg (85-108) Arterial Blood HCO3 28 mmol/L (21-28) Arterial Blood Base Excess 3 mmol/L (-3-3) Oxyhemoglobin 94.6 % Methemoglobin 0.3 % (0.0-1.9) Carbon Monoxide, Quantitative 0.3 % (0.0-1.9) FiO2 40 Glucose (Fingerstick) 170 mg/dL (70-99) Review of Systems Review of Systems Pt on ventilator Assessment and Plan Assessmemt and Plan Problems Medical Problems: (1) Pneumonia Status: Acute Acute hypoxic respiratory failure with intubation Sepsis Pneumonia EZ lobe Acute asthma exacerbation Obesity Possible ileus Transaminitis, NOS Plan: ICU monitoring Continue vent weaning Propofol sedation Abx OG feeding Labs [place] to bedside drainage PT/OT when extubated Home meds when extubated [place] time 33 minutes Comment Review of Relevant I have reviewed the following items [place] (where applicable) has been applied. Labs Laboratory Tests Test 08/07/18 17:16 08/08/18 00:55 08/08/18 05:15 08/08/18 08:00 Glucose (Fingerstick) 158 mg/dL (70-99) 164 mg/dL (70-99) White Blood Count 12.4 x10^3/uL (4.0-11.0) Red Blood Count 3.98 x10^6/uL (3.50-5.40) Hemoglobin 10.8 g/dL (12.0-15.5) Hematocrit 32.4 % (36.0-47.0) Mean Corpuscular Volume 81 fL (79-100) Mean Corpuscular Hemoglobin 27 pg (25-35) Mean Corpuscular Hemoglobin Concent 33 g/dL (31-37) Red Cell Distribution Width 14.0 % (11.5-14.5) Platelet Count 255 x10^3/uL (140-400) Neutrophils (%) (Auto) 78 % (31-73) Lymphocytes (%) (Auto) 17 % (24-48) Monocytes (%) (Auto) 5 % (0-9) Eosinophils (%) (Auto) 0 % (0-3) Basophils (%) (Auto) 1 % (0-3) Neutrophils # (Auto) 9.6 x10^3uL (1.8-7.7) Lymphocytes # (Auto) 2.1 x10^3/uL (1.0-4.8) Monocytes # (Auto) 0.6 x10^3/uL (0.0-1.1) Eosinophils # (Auto) 0.0 x10^3/uL (0.0-0.7) Basophils # (Auto) 0.1 x10^3/uL (0.0-0.2) Sodium Level 140 mmol/L (136-145) Potassium Level 3.8 mmol/L (3.5-5.1) Chloride Level 102 mmol/L (98-107) Carbon Dioxide Level 30 mmol/L (21-32) Anion Gap 8 (6-14) Blood Urea Nitrogen 18 mg/dL (7-20) Creatinine 0.5 mg/dL (0.6-1.0) Estimated GFR (Cockcroft-Gault) 144.9 Glucose Level 170 mg/dL (70-99) Calcium Level 8.7 mg/dL (8.5-10.1) O2 Saturation 92 % (92-99) Arterial Blood pH 7.49 (7.35-7.45) Arterial Blood pCO2 at Patient Temp 38 mmHg (35-46) Arterial Blood pO2 at Patient Temp 62 mmHg (85-108) Arterial Blood HCO3 29 mmol/L (21-28) Arterial Blood Base Excess 5 mmol/L (-3-3) FiO2 40 Test 08/08/18 11:45 08/08/18 18:10 08/08/18 23:58 08/09/18 05:00 Glucose (Fingerstick) 174 mg/dL (70-99) 162 mg/dL (70-99) 164 mg/dL (70-99) White Blood Count 13.9 x10^3/uL (4.0-11.0) Red Blood Count 4.06 x10^6/uL (3.50-5.40) Hemoglobin 10.9 g/dL (12.0-15.5) Hematocrit 33.3 % (36.0-47.0) Mean Corpuscular Volume 82 fL (79-100) Mean Corpuscular Hemoglobin 27 pg (25-35) Mean Corpuscular Hemoglobin Concent 33 g/dL (31-37) Red Cell Distribution Width 14.1 % (11.5-14.5) Platelet Count 244 x10^3/uL (140-400) Neutrophils (%) (Auto) 74 % (31-73) Lymphocytes (%) (Auto) 19 % (24-48) Monocytes (%) (Auto) 5 % (0-9) Eosinophils (%) (Auto) 0 % (0-3) Basophils (%) (Auto) 1 % (0-3) Neutrophils # (Auto) 10.3 x10^3uL (1.8-7.7) Lymphocytes # (Auto) 2.7 x10^3/uL (1.0-4.8) Monocytes # (Auto) 0.8 x10^3/uL (0.0-1.1) Eosinophils # (Auto) 0.0 x10^3/uL (0.0-0.7) Basophils # (Auto) 0.1 x10^3/uL (0.0-0.2) Sodium Level 138 mmol/L (136-145) Potassium Level 3.6 mmol/L (3.5-5.1) Chloride Level 102 mmol/L (98-107) Carbon Dioxide Level 29 mmol/L (21-32) Anion Gap 7 (6-14) Blood Urea Nitrogen 19 mg/dL (7-20) Creatinine 0.5 mg/dL (0.6-1.0) Estimated GFR (Cockcroft-Gault) 144.9 Glucose Level 144 mg/dL (70-99) Calcium Level 8.6 mg/dL (8.5-10.1) Test 08/09/18 07:50 08/09/18 11:00 08/09/18 11:14 O2 Saturation 93 % (92-99) 95 % (92-99) Arterial Blood pH 7.46 (7.35-7.45) 7.44 (7.35-7.45) Arterial Blood pCO2 at Patient Temp 40 mmHg (35-46) 42 mmHg (35-46) Arterial Blood pO2 at Patient Temp 67 mmHg (85-108) 79 mmHg (85-108) Arterial Blood HCO3 28 mmol/L (21-28) 28 mmol/L (21-28) Arterial Blood Base Excess 4 mmol/L (-3-3) 3 mmol/L (-3-3) FiO2 40 40 Oxyhemoglobin 94.6 % Methemoglobin 0.3 % (0.0-1.9) Carbon Monoxide, Quantitative 0.3 % (0.0-1.9) Glucose (Fingerstick) 170 mg/dL (70-99) Laboratory Tests Test 08/08/18 18:10 08/08/18 23:58 08/09/18 05:00 08/09/18 07:50 Glucose (Fingerstick) 162 mg/dL (70-99) 164 mg/dL (70-99) White Blood Count 13.9 x10^3/uL (4.0-11.0) Red Blood Count 4.06 x10^6/uL (3.50-5.40) Hemoglobin 10.9 g/dL (12.0-15.5) Hematocrit 33.3 % (36.0-47.0) Mean Corpuscular Volume 82 fL (79-100) Mean Corpuscular Hemoglobin 27 pg (25-35) Mean Corpuscular Hemoglobin Concent 33 g/dL (31-37) Red Cell Distribution Width 14.1 % (11.5-14.5) Platelet Count 244 x10^3/uL (140-400) Neutrophils (%) (Auto) 74 % (31-73) Lymphocytes (%) (Auto) 19 % (24-48) Monocytes (%) (Auto) 5 % (0-9) Eosinophils (%) (Auto) 0 % (0-3) Basophils (%) (Auto) 1 % (0-3) Neutrophils # (Auto) 10.3 x10^3uL (1.8-7.7) Lymphocytes # (Auto) 2.7 x10^3/uL (1.0-4.8) Monocytes # (Auto) 0.8 x10^3/uL (0.0-1.1) Eosinophils # (Auto) 0.0 x10^3/uL (0.0-0.7) Basophils # (Auto) 0.1 x10^3/uL (0.0-0.2) Sodium Level 138 mmol/L (136-145) Potassium Level 3.6 mmol/L (3.5-5.1) Chloride Level 102 mmol/L (98-107) Carbon Dioxide Level 29 mmol/L (21-32) Anion Gap 7 (6-14) Blood Urea Nitrogen 19 mg/dL (7-20) Creatinine 0.5 mg/dL (0.6-1.0) Estimated GFR (Cockcroft-Gault) 144.9 Glucose Level 144 mg/dL (70-99) Calcium Level 8.6 mg/dL (8.5-10.1) O2 Saturation 93 % (92-99) Arterial Blood pH 7.46 (7.35-7.45) Arterial Blood pCO2 at Patient Temp 40 mmHg (35-46) Arterial Blood pO2 at Patient Temp 67 mmHg (85-108) Arterial Blood HCO3 28 mmol/L (21-28) Arterial Blood Base Excess 4 mmol/L (-3-3) FiO2 40 Test 08/09/18 11:00 08/09/18 11:14 O2 Saturation 95 % (92-99) Arterial Blood pH 7.44 (7.35-7.45) Arterial Blood pCO2 at Patient Temp 42 mmHg (35-46) Arterial Blood pO2 at Patient Temp 79 mmHg (85-108) Arterial Blood HCO3 28 mmol/L (21-28) Arterial Blood Base Excess 3 mmol/L (-3-3) Oxyhemoglobin 94.6 % Methemoglobin 0.3 % (0.0-1.9) Carbon Monoxide, Quantitative 0.3 % (0.0-1.9) FiO2 40 Glucose (Fingerstick) 170 mg/dL (70-99) Microbiology 07/28/18 Blood Culture - Final, Complete NO GROWTH AFTER 5 DAYS 08/04/18 - Final, Resulted 08/04/18 - Final, Resulted 08/04/18 , Resulted Pending 08/04/18 Gram Stain Evaluation - Final, Resulted 08/04/18 Sputum Culture - Final, Resulted 08/04/18 Sputum Result 1 - Final, Resulted Medications Current Medications Prednisone (Prednisone) 50 mg 1X ONCE PO Last administered on 07/28/18at 06:47; Start 07/28/18 at 07:00; Stop 07/28/18 at 07:01; Status DC Albuterol/ Ipratropium (Duoneb) 3 ml 1X ONCE NEB Last administered on at 06:37; Start 07/28/18 at 07:00; Stop 07/28/18 at 07:01; Status DC Sodium Chloride 1,000 ml @ 1,000 mls/hr 1X ONCE IV Last administered on at 07:03; Start 07/28/18 at 07:00; Stop 07/28/18 at 07:59; Status DC Albuterol Sulfate (Ventolin Neb Soln) 10 mg 1X ONCE CONT NEB Last administered on 07/28/18at 07:25; Start 07/28/18 at 07:00; Stop 07/28/18 at 07:02; Status DC Magnesium Sulfate 50 ml @ 25 mls/hr 1X ONCE IV Last administered on 07/28/18at 07:41; Start 07/28/18 at 07:15; Stop 07/28/18 at 09:14; Status DC Ceftriaxone Sodium 50 ml @ 100 mls/hr 1X ONCE IV Last administered on at 08:52; Start 07/28/18 at 08:15; Stop 07/28/18 at 08:44; Status DC Azithromycin 250 ml @ 250 mls/hr 1X ONCE IV Last administered on 07/28/18at 09: 20; Start 07/28/18 at 08:15; Stop 07/28/18 at 09:14; Status DC Acetaminophen/ Hydrocodone Bitart (Lortab 5/325) 2 tab 1X ONCE PO Last administered on 07/28/18at 08:49; Start 07/28/18 at 08:45; Stop 07/28/18 at 08:46; Status DC Ondansetron HCl (Zofran) 4 mg PRN Q8HRS PRN IV NAUSEA/VOMITING Last administered on 07/28/18at 22:40; Start 07/28/18 at 08:45; Stop 07/29/18 at 08:44; Status DC Acetaminophen (Tylenol) 650 mg PRN Q4HRS PRN PO FEVER Last administered on at 22:40; Start 07/28/18 at 08:45; Stop 07/29/18 at 08:44; Status DC Albuterol/ Ipratropium (Duoneb) 3 ml RTQID NEB Last administered on 07/29/18at 07 :29; Start 07/28/18 at 12:00; Stop 07/29/18 at 10:30; Status DC Acetaminophen/ Hydrocodone Bitart (Lortab 5/325) 2 tab Q6H PRN PO SEVERE PAIN Last administered on 07/29/18at 23:09; Start 07/28/18 at 08:45 Prednisone (Prednisone) 60 mg DAILY PO ; Start 07/29/18 at 09:00; Stop 07/29/18 at 09:00; Status DC Budesonide (Pulmicort) 0.5 mg RTBID NEB Last administered on 08/09/18at 07:44; Start 07/28/18 at 20:00 Budesonide (Pulmicort) 0.5 mg 1X ONCE NEB Last administered on 07/28/18at 11:06 ; Start 07/28/18 at 09:30; Stop 07/28/18 at 09:31; Status DC Albuterol Sulfate (Ventolin Neb Soln) 2.5 mg PRN Q4HRS PRN NEB SHORTNESS OF BREATH; Start 07/28/18 at 09:30 Azithromycin (Zithromax) 250 mg DAILY PO Last administered on 08/01/18at 08:54; Start 07/28/18 at 10:00; Stop 08/01/18 at 09:01; Status DC Alprazolam (Xanax) 0.25 mg PRN Q6HRS PRN PO ANXIETY / AGITATION Last administered on 08/08/18at 08:24; Start 07/28/18 at 12:45 Ibuprofen (Motrin) 800 mg PRN Q8HRS PRN PO PAIN MILD/INFLAMMATION; Start at 12:45 Benzonatate (Tessalon Perle) 100 mg PRN TID PRN PO COUGH 2ND CHOICE; Start 07/28 at 14:00 Citalopram Hydrobromide (CeleXA) 40 mg DAILY PO Last administered on 08/09/18at 08:09; Start 07/28/18 at 13:00 Metformin HCl (Glucophage) 500 mg BIDWMEALS PO Last administered on 07/29/18at 10 :07; Start 07/28/18 at 17:00; Stop 07/31/18 at 08:58; Status DC Promethazine HCl/ Codeine (Phenergan With Codeine) 5 ml PRN Q6HRS PRN PO COUGH 1ST CHOICE Last administered on 07/29/18at 16:25; Start 07/28/18 at 15:30 Guaifenesin (MUCINEX ER with DM) 1 tab BID PO Last administered on 07/30/18at 20: 57; Start 07/28/18 at 21:00; Stop 07/31/18 at 09:47; Status DC Lactobacillus Rhamnosus (Culturelle) 1 cap BID PO Last administered on at 21:44; Start 07/28/18 at 21:00; Stop 07/30/18 at 09:48; Status DC Prednisone (Prednisone) 30 mg DAILY PO Last administered on 07/29/18at 10:06; Start 07/29/18 at 09:00; Stop 07/31/18 at 08:58; Status DC Ceftriaxone Sodium 1 gm/ Dextrose 50 ml @ 100 mls/hr Q24H IV ; Start 07/29/18 at 09:00; Status UNV Ceftriaxone Sodium (Rocephin) 1 gm Q24H IVP Last administered on 07/29/18at 10:06 ; Start 07/29/18 at 09:00; Stop 07/30/18 at 10:07; Status DC Albuterol/ Ipratropium (Duoneb) 3 ml Q4HRS NEB Last administered on 08/02/18at 08 :40; Start 07/29/18 at 12:00; Stop 08/02/18 at 09:31; Status DC Budesonide (Pulmicort) 0.5 mg RTBID NEB ; Start 07/29/18 at 20:00; Status UNV Famotidine (Pepcid) 20 mg QHS PO Last administered on 07/29/18at 21:44; Start 07/29/18 at 21:00; Stop 07/30/18 at 10:10; Status DC Enoxaparin Sodium (Lovenox 40mg Syringe) 40 mg Q12H SQ Last administered on at 23:56; Start 07/29/18 at 12:30; Stop 08/09/18 at 09:13; Status DC Acetaminophen (Tylenol) 650 mg PRN Q6HRS PRN PO FEVER; Start 07/29/18 at 11:45 Ondansetron HCl (Zofran) 4 mg PRN Q6HRS PRN IV NAUSEA/VOMITING Last administered on 07/29/18at 15:23; Start 07/29/18 at 11:45 Morphine Sulfate (Morphine Sulfate) 2 mg PRN Q2HR PRN IV MODERATE TO SEVERE PAIN; Start 07/29/18 at 11:45 Tramadol HCl (Ultram) 50 mg PRN Q6HRS PRN PO MODERATE PAIN; Start 07/29/18 at 11 :45 Docusate Sodium (Colace) 100 mg PRN DAILY PRN PO CONSTIPATION; Start 07/29/18 at 11:45 Haloperidol Lactate (Haldol Inj) 2 mg PRN Q2HR PRN IVP AGITATION 2ND CHOICE Last administered on 08/01/18at 15:48; Start 07/30/18 at 01:30; Stop 08/07/18 at 21 :38; Status DC Lorazepam (Ativan) 0.25 mg PRN Q1HR PRN IV ANXIETY/AGITATION 1ST CHOICE Last administered on 08/07/18at 06:07; Start 07/30/18 at 01:30 Propofol 100 ml @ As Directed STK-MED ONCE IV ; Start 07/30/18 at 04:12; Stop at 04:13; Status DC Etomidate (Amidate) 20 mg STK-MED ONCE IV ; Start 07/30/18 at 04:18; Stop at 04:19; Status DC Propofol 100 ml @ 0 mls/hr CONT PRN IV PER PROTOCOL Last administered on at 09:43; Start 07/30/18 at 04:30 Chlorhexidine Gluconate (Peridex) 15 ml BID MM Last administered on 08/09/18at 08:08; Start 07/30/18 at 09:00 Midazolam HCl 100 ml @ 0 mls/hr CONT PRN IV PER PROTOCOL Last administered on at 01:30; Start 07/30/18 at 04:30 Piperacillin Sod/ Tazobactam Sod (Zosyn Per Pharmacy) 1 each PRN DAILY PRN MC SEE COMMENTS; Start 07/30/18 at 10:00; Status Cancel Vancomycin HCl (Vanco Per Pharmacy) 1 each PRN DAILY PRN MC SEE COMMENTS Last administered on 08/03/18at 08:31; Start 07/30/18 at 10:00; Stop 08/03/18 at 12:30; Status DC Methylprednisolone Sodium Succinate (SOLU-Medrol 125MG VIAL) 60 mg Q8HRS IV Last administered on 08/03/18at 05:49; Start 07/30/18 at 14:00; Stop 08/03/18 at 06: 32; Status DC Pantoprazole Sodium (PROTONIX VIAL for IV PUSH) 40 mg DAILYAC IVP Last administered on 08/09/18at 08:09; Start 07/30/18 at 10:30 Piperacillin Sod/ Tazobactam Sod 3.375 gm/Sodium Chloride 50 ml @ 100 mls/hr Q6HRS IV Last administered on 08/06/18at 05:35; Start 07/30/18 at 12:00; Stop 11/11 at 07:38; Status DC Vancomycin HCl 2 gm/Sodium Chloride 500 ml @ 250 mls/hr 1X ONCE IV Last administered on 07/30/18at 10:31; Start 07/30/18 at 10:30; Stop 07/30/18 at 12:29; Status DC Vancomycin HCl 1.5 gm/Sodium Chloride 500 ml @ 250 mls/hr Q8H IV Last administered on 07/31/18at 14:10; Start 07/30/18 at 18:30; Stop 07/31/18 at 17:00; Status DC Vancomycin HCl (Vancomycin Trough Level) 1 each 1X ONCE MC Last administered on 07/31/18at 13:30; Start 07/31/18 at 13:30; Stop 07/31/18 at 13:31; Status DC Insulin Human Lispro (HumaLOG) 0-7 UNITS TIDWMEALS SQ ; Start 07/31/18 at 08:00; Stop 07/31/18 at 09:04; Status DC Dextrose (Dextrose 50%-Water Syringe) 12.5 gm PRN Q15MIN PRN IV SEE COMMENTS; Start 07/30/18 at 17:45 Insulin Human Lispro (HumaLOG) 0-7 UNITS Q6HRS SQ Last administered on at 11:17; Start 07/31/18 at 12:00 Vancomycin HCl 1.75 gm/Sodium Chloride 500 ml @ 250 mls/hr Q8H IV Last administered on 08/01/18at 13:48; Start 07/31/18 at 22:00; Stop 08/01/18 at 22:01; Status DC Vancomycin HCl (Vancomycin Trough Level) 1 each 1X ONCE MC Last administered on 08/01/18at 21:01; Start 08/01/18 at 21:30; Stop 08/01/18 at 21:31; Status DC Erythromycin Ethylsuccinate (E.e.s. 200) 200 mg 1X ONCE PEG Last administered on 08/01/18at 12:19; Start 08/01/18 at 13:00; Stop 08/01/18 at 13:01; Status DC Vancomycin HCl 2 gm/Sodium Chloride 500 ml @ 250 mls/hr Q8H IV Last administered on 08/02/18at 22:56; Start 08/01/18 at 22:00; Stop 08/02/18 at 22:59; Status DC Vancomycin HCl (Vancomycin Trough Level) 1 each 1X ONCE MC Last administered on 08/02/18at 21:30; Start 08/02/18 at 21:30; Stop 08/02/18 at 21:31; Status DC Fentanyl Citrate 30 ml @ 0 mls/hr CONT PRN IV PER PROTOCOL Last administered on 08/09/18at 12:10; Start 08/02/18 at 07:00 Enalaprilat (Vasotec Inj) 1.25 mg PRN Q6HRS PRN IVP HYPERTENSION, SEE COMMENTS ; Start 08/02/18 at 09:15 Amlodipine Besylate (Norvasc) 2.5 mg DAILY PO Last administered on 08/09/18at 08 :09; Start 08/02/18 at 10:00 Albuterol/ Ipratropium (Duoneb) 3 ml RTQID NEB Last administered on 08/09/18at 11:25; Start 08/02/18 at 12:00 Vancomycin HCl 1.75 gm/Sodium Chloride 500 ml @ 250 mls/hr Q6H IV Last administered on 08/03/18at 05:53; Start 08/03/18 at 05:00; Stop 08/03/18 at 08:23; Status DC Vancomycin HCl (Vancomycin Trough Level) 1 each 1X ONCE MC ; Start 08/03/18 at 22:30; Stop 08/03/18 at 22:31; Status Cancel Methylprednisolone Sodium Succinate (SOLU-Medrol 125MG VIAL) 40 mg Q8HRS IV Last administered on 08/09/18at 06:29; Start 08/03/18 at 14:00; Stop 08/09/18 at 09:09; Status DC Vancomycin HCl 2 gm/Sodium Chloride 500 ml @ 250 mls/hr Q8H IV ; Start 08/03/18 at 14:00; Stop 08/03/18 at 14:00; Status DC Azithromycin 500 mg/Sodium Chloride 250 ml @ 250 mls/hr Q24H IV Last administered on 08/05/18at 13:08; Start 08/03/18 at 13:00; Stop 08/06/18 at 07:38 ; Status DC Haloperidol Lactate (Haldol Inj) 5 mg PRN Q6HRS PRN IVP AGITATION 2ND CHOICE Last administered on 08/08/18at 16:04; Start 08/07/18 at 21:45 Midazolam HCl (Versed) 2 mg PRN Q1HR PRN IV SEDATION Last administered on at 11:28; Start 08/07/18 at 21:45 Methylprednisolone Sodium Succinate (SOLU-Medrol 40MG VIAL) 40 mg Q12HR IV ; Start 08/09/18 at 21:00 Enoxaparin Sodium (Lovenox 40mg Syringe) 40 mg Q24H SQ ; Start 08/09/18 at 21:00 Active Scripts Active Motrin Ib (Ibuprofen) 200 Mg Tablet 800 Mg PO Q8H PRN Tessalon Perle (Benzonatate) 100 Mg Capsule 100 Mg PO TID PRN Prednisone 20 Mg Tablet 40 Mg PO DAILY START MEDICATIONS ON 08/07/2016 Medrol (Methylprednisolone) 4 Mg Tab.ds.pk 1 Pkg PO UD Levaquin (Levofloxacin) 750 Mg Tablet 750 Mg PO DAILY06 Advair 250-50 Diskus (Fluticasone/Salmeterol) 1 Puff Puff 1 Puff INH BID Reported Topiramate 25 Mg Tablet 1 Tab PO HS Phentermine Hcl 37.5 Mg Capsule 1 Cap PO [id number] Metformin Hcl 500 Mg Tablet 500 Mg PO BIDWMEALS Escitalopram Oxalate 20 Mg Tablet 1 Tab PO DAILY Xanax (Alprazolam) 0.25 Mg Tablet 0.25 Mg PO PRN Q6HRS PRN Vitals/I & O Vital Sign - Last 24 Hours 08/08/18 08/08/18 08/08/18 08/08/18 13:00 13:14 14:00 15:00 Pulse 58 57 55 Resp 18 18 18 B/P (MAP) 102/42 (62) 114/52 (72) 124/64 (84) Pulse Ox 95 95 95 95 O2 Delivery Ventilator Ventilator Ventilator Ventilator 08/08/18 08/08/18 08/08/18 08/08/18 15:14 15:26 16:00 16:00 Resp 21 9 Pulse Ox 95 95 95 O2 Delivery BiPAP/CPAP Ventilator Mechanical Ventilator 08/08/18 08/08/18 08/08/18 08/08/18 16:00 16:52 18:00 18:46 Temp 98.9 98.9 Pulse 59 57 Resp 18 18 18 B/P (MAP) 130/64 (86) 132/65 (87) Pulse Ox 93 94 95 95 O2 Delivery Ventilator Ventilator Ventilator Ventilator 08/08/18 08/08/18 08/08/18 08/08/18 19:06 19:19 19:57 20:02 Temp 99.1 99.1 Pulse 51 67 Resp 18 18 B/P (MAP) 136/71 (92) 113/52 (72) Pulse Ox 96 96 94 O2 Delivery Ventilator Ventilator Mechanical Ventilator Ventilator 08/08/18 08/08/18 08/08/18 08/08/18 21:00 22:03 22:06 23:00 Pulse 58 53 62 Resp 18 18 18 B/P (MAP) 114/58 (76) 119/62 (81) 127/63 (84) Pulse Ox 96 95 95 93 O2 Delivery Ventilator Ventilator Ventilator Ventilator 08/09/18 08/09/18 08/09/18 08/09/18 00:10 00:10 00:45 00:54 Temp 98.2 98.2 Pulse 58 Resp 18 B/P (MAP) 125/58 (80) Pulse Ox 93 93 O2 Delivery Mechanical Ventilator Ventilator Ventilator Ventilator 08/09/18 08/09/18 08/09/18 08/09/18 01:00 02:00 03:00 03:05 Pulse 56 54 52 Resp 18 18 18 B/P (MAP) 110/55 (73) 114/59 (77) 110/57 (74) Pulse Ox 94 93 93 94 O2 Delivery Ventilator Ventilator Ventilator Ventilator 08/09/18 08/09/18 08/09/18 08/09/18 03:57 04:00 05:08 05:29 Temp 98.8 98.8 Pulse 52 53 Resp 18 18 B/P (MAP) 109/56 (73) 116/54 (74) Pulse Ox 93 93 95 O2 Delivery Mechanical Ventilator Ventilator Ventilator Ventilator 08/09/18 08/09/18 08/09/18 08/09/18 06:00 07:00 07:44 07:50 Pulse 56 68 Resp 18 19 B/P (MAP) 137/90 (106) 135/70 (91) Pulse Ox 94 94 93 93 O2 Delivery Ventilator Ventilator Ventilator Ventilator 08/09/18 08/09/18 08/09/18 08/09/18 08:00 08:00 08:09 09:00 Temp 99.2 99.2 Pulse 58 56 Resp 22 18 B/P (MAP) 133/61 (85) 133/61 143/59 (87) Pulse Ox 93 93 O2 Delivery Ventilator Mechanical Ventilator Ventilator O2 Flow Rate 3.0 08/09/18 08/09/18 08/09/18 08/09/18 09:25 10:00 11:00 11:25 Pulse 62 60 Resp 20 20 B/P (MAP) 143/56 (85) 128/63 (84) Pulse Ox 93 94 96 95 O2 Delivery Ventilator Ventilator Ventilator Ventilator 08/09/18 08/09/18 08/09/18 12:00 12:00 12:10 Temp 99.1 99.1 Pulse 66 Resp 19 20 B/P (MAP) 128/63 (84) Pulse Ox 94 94 O2 Delivery Ventilator Mechanical Ventilator Ventilator Intake and Output 08/08/18 08/08/18 08/09/18 15:00 23:00 07:00 Intake Total 682 ml 1695.1 ml 1660 ml Output Total 1075 ml 810 ml 1310 ml Balance -393 ml 885.1 ml 350 ml JAIRON DUENAS III DO Aug 09, 2018 12:27
--- NOTE | 2018-08-09 19:37 | RAD ---
Indication: OG tube placement check TECHNIQUE: Single AP supine view of the abdomen COMPARISON: None FINDINGS: The OG tube is seen with its tip in the distal stomach. The visualized right lung base is clear. No abnormally dilated bowel loops. Right upper quadrant clips suggesting cholecystectomy. Visualized bones are within normal limits. IMPRESSION: Tip of the OG tube is in the distal stomach. Electronically signed by: Jose Gibbs DO (08/09/2018 7:33 PM) [facility]
[2018-08-09] MEDS: ENOXAPARIN 40 MG/0.4 ML SYRINGE. SQ SCH (21:00)
[2018-08-09] MEDS: methylPREDNISolone SOD SUCC PF 40 MG/ML VIAL. IV SCH (21:01)
[2018-08-10] VITALS (22 sets, daily range): BP systolic 108–165; BP diastolic 55–91
[2018-08-10] MEDS: INSULIN LISPRO 300 UNITS/3 ML INSULN.PEN. SQ SCH ×3 (00:14→12:00)
[2018-08-10] MEDS: PROPOFOL 100 ML IV PRN (03:25)
[2018-08-10 06:12] LABS: BASO # 0.1 x10^3/uL (0.0-0.2); BASO % 0 % (0-3); EOS % 0 % (0-3); HEMATOCRIT 33.2 % (36.0-47.0); HEMOGLOBIN 10.9 g/dL (12.0-15.5); LYMPH # 2.6 x10^3/uL (1.0-4.8); LYMPH % 20 % (24-48); MEAN CORPUSCULAR HEMOGLOBIN 27 pg (25-35); MEAN CORPUSCULAR HGB CONC 33 g/dL (31-37); MEAN CORPUSCULAR VOLUME 82 fL (79-100); MONO # 0.8 x10^3/uL (0.0-1.1); MONO % 6 % (0-9); NEUT # 9.9 x10^3uL (1.8-7.7); NEUT % 74 % (31-73); PLATELET COUNT 236 x10^3/uL (140-400); RED BLOOD COUNT 4.04 x10^6/uL (3.50-5.40); RED CELL DISTRIBUTION WIDTH 14.4 % (11.5-14.5); WHITE BLOOD COUNT 13.4 x10^3/uL (4.0-11.0)
--- NOTE | 2018-08-10 06:21 | PDOC ---
PULMONARY PROGRESS NOTES Subjective on vent sedated w propofol, fentanyl, alert, mod ett secretion, much more alert patient intubated 07/30 after progressive hypoxia and failed BIPAP Vitals Vital Signs Date Time Temp Pulse Resp B/P (MAP) Pulse Ox O2 Delivery O2 Flow Rate FiO2 08/10/18 06:00 56 18 137/61 (86) 94 Ventilator 08/10/18 04:00 98.8 98.8 08/09/18 08:00 3.0 Comments ros as mentioned as above, discussed w rn, other sys otherwise neg sedated on vent HEENT: Other (nc at perrl. nose throat clear.... neck, no lad, no thyromegaly) Lungs: Crackles Cardiovascular: S1, S2 Abdomen: Soft, Non-tender, Other (no mass) Extremities: Other (trace edema) Skin: Warm Labs Laboratory Tests Test 08/08/18 08:00 08/08/18 11:45 08/08/18 18:10 08/08/18 23:58 O2 Saturation 92 % (92-99) Arterial Blood pH 7.49 (7.35-7.45) Arterial Blood pCO2 at Patient Temp 38 mmHg (35-46) Arterial Blood pO2 at Patient Temp 62 mmHg (85-108) Arterial Blood HCO3 29 mmol/L (21-28) Arterial Blood Base Excess 5 mmol/L (-3-3) FiO2 40 Glucose (Fingerstick) 174 mg/dL (70-99) 162 mg/dL (70-99) 164 mg/dL (70-99) Test 08/09/18 05:00 08/09/18 07:50 08/09/18 11:00 08/09/18 11:14 White Blood Count 13.9 x10^3/uL (4.0-11.0) Red Blood Count 4.06 x10^6/uL (3.50-5.40) Hemoglobin 10.9 g/dL (12.0-15.5) Hematocrit 33.3 % (36.0-47.0) Mean Corpuscular Volume 82 fL (79-100) Mean Corpuscular Hemoglobin 27 pg (25-35) Mean Corpuscular Hemoglobin Concent 33 g/dL (31-37) Red Cell Distribution Width 14.1 % (11.5-14.5) Platelet Count 244 x10^3/uL (140-400) Neutrophils (%) (Auto) 74 % (31-73) Lymphocytes (%) (Auto) 19 % (24-48) Monocytes (%) (Auto) 5 % (0-9) Eosinophils (%) (Auto) 0 % (0-3) Basophils (%) (Auto) 1 % (0-3) Neutrophils # (Auto) 10.3 x10^3uL (1.8-7.7) Lymphocytes # (Auto) 2.7 x10^3/uL (1.0-4.8) Monocytes # (Auto) 0.8 x10^3/uL (0.0-1.1) Eosinophils # (Auto) 0.0 x10^3/uL (0.0-0.7) Basophils # (Auto) 0.1 x10^3/uL (0.0-0.2) Sodium Level 138 mmol/L (136-145) Potassium Level 3.6 mmol/L (3.5-5.1) Chloride Level 102 mmol/L (98-107) Carbon Dioxide Level 29 mmol/L (21-32) Anion Gap 7 (6-14) Blood Urea Nitrogen 19 mg/dL (7-20) Creatinine 0.5 mg/dL (0.6-1.0) Estimated GFR (Cockcroft-Gault) 144.9 Glucose Level 144 mg/dL (70-99) Calcium Level 8.6 mg/dL (8.5-10.1) O2 Saturation 93 % (92-99) 95 % (92-99) Arterial Blood pH 7.46 (7.35-7.45) 7.44 (7.35-7.45) Arterial Blood pCO2 at Patient Temp 40 mmHg (35-46) 42 mmHg (35-46) Arterial Blood pO2 at Patient Temp 67 mmHg (85-108) 79 mmHg (85-108) Arterial Blood HCO3 28 mmol/L (21-28) 28 mmol/L (21-28) Arterial Blood Base Excess 4 mmol/L (-3-3) 3 mmol/L (-3-3) FiO2 40 40 Oxyhemoglobin 94.6 % Methemoglobin 0.3 % (0.0-1.9) Carbon Monoxide, Quantitative 0.3 % (0.0-1.9) Glucose (Fingerstick) 170 mg/dL (70-99) Test 08/09/18 18:06 08/10/18 00:10 08/10/18 06:01 Glucose (Fingerstick) 105 mg/dL (70-99) 155 mg/dL (70-99) 147 mg/dL (70-99) Laboratory Tests Test 08/09/18 07:50 08/09/18 11:00 08/09/18 11:14 08/09/18 18:06 O2 Saturation 93 % (92-99) 95 % (92-99) Arterial Blood pH 7.46 (7.35-7.45) 7.44 (7.35-7.45) Arterial Blood pCO2 at Patient Temp 40 mmHg (35-46) 42 mmHg (35-46) Arterial Blood pO2 at Patient Temp 67 mmHg (85-108) 79 mmHg (85-108) Arterial Blood HCO3 28 mmol/L (21-28) 28 mmol/L (21-28) Arterial Blood Base Excess 4 mmol/L (-3-3) 3 mmol/L (-3-3) FiO2 40 40 Oxyhemoglobin 94.6 % Methemoglobin 0.3 % (0.0-1.9) Carbon Monoxide, Quantitative 0.3 % (0.0-1.9) Glucose (Fingerstick) 170 mg/dL (70-99) 105 mg/dL (70-99) Test 08/10/18 00:10 08/10/18 06:01 Glucose (Fingerstick) 155 mg/dL (70-99) 147 mg/dL (70-99) Medications Active Scripts Medications Dose Route/Sig Max Daily Dose Days Date Category Dose Instructions Topiramate 25 Mg Tablet 1 Tab PO HS 07/28/18 Reported Phentermine Hcl 37.5 Mg Capsule 1 Cap PO [id number] 07/28/18 Reported Metformin Hcl 500 Mg Tablet 500 Mg PO BIDWMEALS 07/28/18 Reported Motrin Ib (Ibuprofen) 200 Mg Tablet 800 Mg PO Q8H PRN 08/15/17 Rx Tessalon Perle (Benzonatate) 100 Mg Capsule 100 Mg PO TID PRN 01/11/17 Rx Prednisone 20 Mg Tablet 40 Mg PO DAILY 08/06/16 Rx START MEDICATIONS ON 08/07/2016 Medrol (Methylprednisolone) 4 Mg Tab.ds.pk 1 Pkg PO UD 11/16/14 Rx Levaquin (Levofloxacin) 750 Mg Tablet 750 Mg PO DAILY06 11/16/14 Rx Advair 250-50 Diskus (Fluticasone/Salmeterol) 1 Puff Puff 1 Puff INH BID 11/16/14 Rx Escitalopram Oxalate 20 Mg Tablet 1 Tab PO DAILY 11/09/14 Reported Xanax (Alprazolam) 0.25 Mg Tablet 0.25 Mg PO PRN Q6HRS PRN 11/09/14 Reported Comments cxr reviewed, ett ok, b lat infilt, increased vas marking ct reviewed 1. Moderate atelectasis and dense consolidation in both lower lobes and to a lesser degree posteriorly in the upper lobes. Pneumonia is likely. 2. Minimal patchy groundglass opacities in the other aerated portions of both lungs. 3. Cardiomegaly. Impression . 1. Acute respiratory failure requiring mechanical ventilation 07/30. ARDS/ diffuse pneumonia 2. Acute exacerbation of chronic obstructive pulmonary disease with an asthma component. 3. abnl cxr, Diffuse lung infiltrates, suspect diffuse lung pneumonia/ ARDS 4. Morbid obesity, body mass index of 40, prob ji. 5. H/O Anxiety/panic attacks. 6. Status post cholecystectomy. influenza neg strep antigen/Legionella/Mycoplasma,, neg Rhino virus positive Plan . cont vent support, setting reviewed, will wean sedation, sbt, personally observed pt during trial, vt up to 700 cc, rr in 20s, leak test ok, abg good, will extubate....pt extubated, on 02 doing well. I>O, has crackles, will give lasix 20 mg iv now, start DIANE, has ji is on cpap at home, will use bipap prn during day and continuously at night until her brings her cpap to use during sleep, will ask speech to eval tomorrow. CT CHEST TRACH NEXT WEEK if not able to extubate 02 titration to keep sat 94% cont solumedrol to 40 mg q 12hrs BD ICS protonix, lovenox for prophylaxis sputum cx today monitor off abx, id on case discussed w rn, rt, pt cc time 32 min no overlap MARK WU MD Aug 10, 2018 06:21
[2018-08-10 07:01] LABS: ALBUMIN 2.9 g/dL (3.4-5.0); ALBUMIN/GLOBULIN RATIO 0.9 (1.0-1.7); CREATININE 0.5 mg/dL (0.6-1.0); GFR 144.9; POTASSIUM 3.8 mmol/L (3.5-5.1); TOTAL BILIRUBIN 0.5 mg/dL (0.2-1.0); TOTAL PROTEIN 6.3 g/dL (6.4-8.2)
[2018-08-10] MEDS: IPRATRPIUM/ALBUTEROL 0.5/2.5MG 3 ML NEBU. NEB SCH ×4 (07:30→19:52)
[2018-08-10] MEDS: BUDESONIDE 0.5 MG/2 ML NEBU. NEB SCH ×2 (07:30→19:52)
[2018-08-10] MEDS: PANTOPRAZOLE IV PUSH 40 MG VIAL. IVP SCH (08:28)
[2018-08-10] MEDS: methylPREDNISolone SOD SUCC PF 40 MG/ML VIAL. IV SCH ×2 (08:28→22:21)
[2018-08-10] MEDS: CHLORHEXIDINE 0.12% 15 ML MOUTHWASH. MM SCH (09:00)
[2018-08-10] MEDS: CITALOPRAM 20 MG TABLET. PO SCH (09:00)
[2018-08-10] MEDS: amLODIPine BESYLATE 2.5 MG TABLET PO SCH (09:00)
--- NOTE | 2018-08-10 09:02 | PDOC ---
Infectious Disease Note Subjective Subjective Remains intubated, on pressure support, FiO2 up to 50% Tube feedings Indicating feeling ok Denies pain, nausea or SOA No F/C ROS ROS per HPI otherwise limited as patient is lightly sedated and intubated Vital Sign Vital Signs Vital Signs Date Time Temp Pulse Resp B/P (MAP) Pulse Ox O2 Delivery O2 Flow Rate FiO2 08/10/18 08:00 99.3 66 18 150/79 (102) 94 Ventilator 99.3 08/09/18 08:00 3.0 Physical Exam PHYSICAL EXAM GENERAL: Propped up in bed, alert, calm HEENT: Pupils are equal and reactive, ETT and OGT LUNGS: Clear anteriorly HEART: S1, S2 ABDOMEN: Obese, soft, nontender, positive bowel sounds. : [place] EXTREMITIES: No clubbing, cyanosis or gross edema. SKIN: Without signs of rash. NEUROLOGIC: Alert, nods to simple questions appropriately and follows commands [facility] (07/30) clean Labs Lab Laboratory Tests Test 08/09/18 11:00 08/09/18 11:14 08/09/18 18:06 08/10/18 00:10 O2 Saturation 95 % (92-99) Arterial Blood pH 7.44 (7.35-7.45) Arterial Blood pCO2 at Patient Temp 42 mmHg (35-46) Arterial Blood pO2 at Patient Temp 79 mmHg (85-108) Arterial Blood HCO3 28 mmol/L (21-28) Arterial Blood Base Excess 3 mmol/L (-3-3) Oxyhemoglobin 94.6 % Methemoglobin 0.3 % (0.0-1.9) Carbon Monoxide, Quantitative 0.3 % (0.0-1.9) FiO2 40 Glucose (Fingerstick) 170 mg/dL (70-99) 105 mg/dL (70-99) 155 mg/dL (70-99) Test 08/10/18 06:00 08/10/18 06:01 White Blood Count 13.4 x10^3/uL (4.0-11.0) Red Blood Count 4.04 x10^6/uL (3.50-5.40) Hemoglobin 10.9 g/dL (12.0-15.5) Hematocrit 33.2 % (36.0-47.0) Mean Corpuscular Volume 82 fL (79-100) Mean Corpuscular Hemoglobin 27 pg (25-35) Mean Corpuscular Hemoglobin Concent 33 g/dL (31-37) Red Cell Distribution Width 14.4 % (11.5-14.5) Platelet Count 236 x10^3/uL (140-400) Neutrophils (%) (Auto) 74 % (31-73) Lymphocytes (%) (Auto) 20 % (24-48) Monocytes (%) (Auto) 6 % (0-9) Eosinophils (%) (Auto) 0 % (0-3) Basophils (%) (Auto) 0 % (0-3) Neutrophils # (Auto) 9.9 x10^3uL (1.8-7.7) Lymphocytes # (Auto) 2.6 x10^3/uL (1.0-4.8) Monocytes # (Auto) 0.8 x10^3/uL (0.0-1.1) Eosinophils # (Auto) 0.0 x10^3/uL (0.0-0.7) Basophils # (Auto) 0.1 x10^3/uL (0.0-0.2) Sodium Level 138 mmol/L (136-145) Potassium Level 3.8 mmol/L (3.5-5.1) Chloride Level 100 mmol/L (98-107) Carbon Dioxide Level 28 mmol/L (21-32) Anion Gap 10 (6-14) Blood Urea Nitrogen 23 mg/dL (7-20) Creatinine 0.5 mg/dL (0.6-1.0) Estimated GFR (Cockcroft-Gault) 144.9 BUN/Creatinine Ratio 46 (6-20) Glucose Level 143 mg/dL (70-99) Calcium Level 9.0 mg/dL (8.5-10.1) Total Bilirubin 0.5 mg/dL (0.2-1.0) Aspartate Amino Transf (AST/SGOT) 22 U/L (15-37) Alanine Aminotransferase (ALT/SGPT) 226 U/L (14-59) Alkaline Phosphatase 84 U/L (46-116) Total Protein 6.3 g/dL (6.4-8.2) Albumin 2.9 g/dL (3.4-5.0) Albumin/Globulin Ratio 0.9 (1.0-1.7) Glucose (Fingerstick) 147 mg/dL (70-99) Micro Objective Assessment Leukocytosis - stable, on steroids Acute respiratory failure, intubated Community-acquired pneumonia. Rhino virus + on 08/03 -influenza, strep antigen, Legionella & Mycoplasma,, neg Transaminitis - improved Morbid obesity. h/o Asthma Plan Plan of Care Continue to observe off antibiotics - Previously on vanc, Zosyn, Rocephin, Levaquin and azithromycin Monitor temp Repeat sputum culture ordered per pulmonary Supportive care D/w RN Call with questions MARYSE RIVERA APRN Aug 10, 2018 09:02 PAULO CHIN MD Aug 10, 2018 11:36
--- NOTE | 2018-08-10 09:19 | RAD ---
Portable chest, 08/10/2018: HISTORY: Respiratory failure Comparison is made to a study from 08/08/2018. The patient is rotated to the left. The NG tube has been removed. The ET tube tip lies 6-7 cm above the tom. The right jugular central venous catheter extends into the right atrium. The heart is enlarged. There are persistent basilar pulmonary infiltrates which appear to have improved slightly, particularly on the left. Right perihilar pulmonary vessels are slightly better defined than on yesterday study. No new pulmonary abnormality is seen. No definite pleural fluid is seen. IMPRESSION: Slight interval improvement of the bilateral pulmonary infiltrates. Electronically signed by: Genaro Moreno MD (08/10/2018 9:16 AM) [facility]
[2018-08-10 10:24] LABS: BASE EXCESS ABG 3 mmol/L (-3-3); HCO3 ABG 27 mmol/L (21-28); PCO2 ABG 41 mmHg (35-46); PO2 ABG 65 mmHg (85-108); SAT O2 ABG 92 % (92-99)
[2018-08-10 10:29] LABS: FIO2 ABG 50 CPAP
[2018-08-10] MEDS ORDERED: FUROSEMIDE 20 MG/2 ML VIAL. IVP ONE (11:00)
--- NOTE | 2018-08-10 13:18 | PDOC ---
PROGRESS NOTES Chief Complaint Chief Complaint Acute hypoxic respiratory failure with intubation Sepsis Pneumonia EZ lobe Acute asthma exacerbation Obesity Possible ileus Transaminitis, NOS History of Present Illness History of Present Illness Pt seen and examined in ICU Dw RN Pt now extubated and talking , but slow. Vitals Vitals Vital Signs Date Time Temp Pulse Resp B/P (MAP) Pulse Ox O2 Delivery O2 Flow Rate FiO2 08/10/18 12:00 Nasal Cannula 10.0 08/10/18 12:00 98.3 78 31 124/81 (95) 92 98.3 Physical Exam Physical Exam GENERAL: Propped up in bed, alert, calm HEENT: Pupils are equal and reactive, ETT and OGT LUNGS: Clear anteriorly HEART: S1, S2 ABDOMEN: Obese, soft, nontender, positive bowel sounds. : [place] EXTREMITIES: No clubbing, cyanosis or gross edema. SKIN: Without signs of rash. NEUROLOGIC: Alert, nods to simple questions appropriately and follows commands RIJ (07/30) clean General: Alert, Oriented X3, No acute distress, Other Heart: Regular rate, Normal S1, Normal S2 Lungs: Crackles Abdomen: Normal bowel sounds, Soft Extremities: No cyanosis, No edema, Normal pulses Skin: No rashes, No significant lesion Labs LABS Laboratory Tests Test 08/09/18 18:06 08/10/18 00:10 08/10/18 06:00 08/10/18 06:01 Glucose (Fingerstick) 105 mg/dL (70-99) 155 mg/dL (70-99) 147 mg/dL (70-99) White Blood Count 13.4 x10^3/uL (4.0-11.0) Red Blood Count 4.04 x10^6/uL (3.50-5.40) Hemoglobin 10.9 g/dL (12.0-15.5) Hematocrit 33.2 % (36.0-47.0) Mean Corpuscular Volume 82 fL (79-100) Mean Corpuscular Hemoglobin 27 pg (25-35) Mean Corpuscular Hemoglobin Concent 33 g/dL (31-37) Red Cell Distribution Width 14.4 % (11.5-14.5) Platelet Count 236 x10^3/uL (140-400) Neutrophils (%) (Auto) 74 % (31-73) Lymphocytes (%) (Auto) 20 % (24-48) Monocytes (%) (Auto) 6 % (0-9) Eosinophils (%) (Auto) 0 % (0-3) Basophils (%) (Auto) 0 % (0-3) Neutrophils # (Auto) 9.9 x10^3uL (1.8-7.7) Lymphocytes # (Auto) 2.6 x10^3/uL (1.0-4.8) Monocytes # (Auto) 0.8 x10^3/uL (0.0-1.1) Eosinophils # (Auto) 0.0 x10^3/uL (0.0-0.7) Basophils # (Auto) 0.1 x10^3/uL (0.0-0.2) Sodium Level 138 mmol/L (136-145) Potassium Level 3.8 mmol/L (3.5-5.1) Chloride Level 100 mmol/L (98-107) Carbon Dioxide Level 28 mmol/L (21-32) Anion Gap 10 (6-14) Blood Urea Nitrogen 23 mg/dL (7-20) Creatinine 0.5 mg/dL (0.6-1.0) Estimated GFR (Cockcroft-Gault) 144.9 BUN/Creatinine Ratio 46 (6-20) Glucose Level 143 mg/dL (70-99) Calcium Level 9.0 mg/dL (8.5-10.1) Total Bilirubin 0.5 mg/dL (0.2-1.0) Aspartate Amino Transf (AST/SGOT) 22 U/L (15-37) Alanine Aminotransferase (ALT/SGPT) 226 U/L (14-59) Alkaline Phosphatase 84 U/L (46-116) Total Protein 6.3 g/dL (6.4-8.2) Albumin 2.9 g/dL (3.4-5.0) Albumin/Globulin Ratio 0.9 (1.0-1.7) Test 08/10/18 10:20 O2 Saturation 92 % (92-99) Arterial Blood pH 7.45 (7.35-7.45) Arterial Blood pCO2 at Patient Temp 41 mmHg (35-46) Arterial Blood pO2 at Patient Temp 65 mmHg (85-108) Arterial Blood HCO3 27 mmol/L (21-28) Arterial Blood Base Excess 3 mmol/L (-3-3) FiO2 50 cpap Review of Systems Review of Systems co hunger co weakness Assessment and Plan Assessmemt and Plan Problems Medical Problems: (1) Pneumonia Status: Acute Acute hypoxic respiratory failure with intubation Sepsis Pneumonia EZ lobe Acute asthma exacerbation Obesity Possible ileus Transaminitis, NOS Plan ICU ST eval Nebs Steroids Labs Home meds Comment Review of Relevant I have reviewed the following items [place] (where applicable) has been applied. Labs Laboratory Tests Test 08/08/18 18:10 08/08/18 23:58 08/09/18 05:00 08/09/18 07:50 Glucose (Fingerstick) 162 mg/dL (70-99) 164 mg/dL (70-99) White Blood Count 13.9 x10^3/uL (4.0-11.0) Red Blood Count 4.06 x10^6/uL (3.50-5.40) Hemoglobin 10.9 g/dL (12.0-15.5) Hematocrit 33.3 % (36.0-47.0) Mean Corpuscular Volume 82 fL (79-100) Mean Corpuscular Hemoglobin 27 pg (25-35) Mean Corpuscular Hemoglobin Concent 33 g/dL (31-37) Red Cell Distribution Width 14.1 % (11.5-14.5) Platelet Count 244 x10^3/uL (140-400) Neutrophils (%) (Auto) 74 % (31-73) Lymphocytes (%) (Auto) 19 % (24-48) Monocytes (%) (Auto) 5 % (0-9) Eosinophils (%) (Auto) 0 % (0-3) Basophils (%) (Auto) 1 % (0-3) Neutrophils # (Auto) 10.3 x10^3uL (1.8-7.7) Lymphocytes # (Auto) 2.7 x10^3/uL (1.0-4.8) Monocytes # (Auto) 0.8 x10^3/uL (0.0-1.1) Eosinophils # (Auto) 0.0 x10^3/uL (0.0-0.7) Basophils # (Auto) 0.1 x10^3/uL (0.0-0.2) Sodium Level 138 mmol/L (136-145) Potassium Level 3.6 mmol/L (3.5-5.1) Chloride Level 102 mmol/L (98-107) Carbon Dioxide Level 29 mmol/L (21-32) Anion Gap 7 (6-14) Blood Urea Nitrogen 19 mg/dL (7-20) Creatinine 0.5 mg/dL (0.6-1.0) Estimated GFR (Cockcroft-Gault) 144.9 Glucose Level 144 mg/dL (70-99) Calcium Level 8.6 mg/dL (8.5-10.1) O2 Saturation 93 % (92-99) Arterial Blood pH 7.46 (7.35-7.45) Arterial Blood pCO2 at Patient Temp 40 mmHg (35-46) Arterial Blood pO2 at Patient Temp 67 mmHg (85-108) Arterial Blood HCO3 28 mmol/L (21-28) Arterial Blood Base Excess 4 mmol/L (-3-3) FiO2 40 Test 08/09/18 11:00 08/09/18 11:14 08/09/18 18:06 08/10/18 00:10 O2 Saturation 95 % (92-99) Arterial Blood pH 7.44 (7.35-7.45) Arterial Blood pCO2 at Patient Temp 42 mmHg (35-46) Arterial Blood pO2 at Patient Temp 79 mmHg (85-108) Arterial Blood HCO3 28 mmol/L (21-28) Arterial Blood Base Excess 3 mmol/L (-3-3) Oxyhemoglobin 94.6 % Methemoglobin 0.3 % (0.0-1.9) Carbon Monoxide, Quantitative 0.3 % (0.0-1.9) FiO2 40 Glucose (Fingerstick) 170 mg/dL (70-99) 105 mg/dL (70-99) 155 mg/dL (70-99) Test 08/10/18 06:00 08/10/18 06:01 08/10/18 10:20 White Blood Count 13.4 x10^3/uL (4.0-11.0) Red Blood Count 4.04 x10^6/uL (3.50-5.40) Hemoglobin 10.9 g/dL (12.0-15.5) Hematocrit 33.2 % (36.0-47.0) Mean Corpuscular Volume 82 fL (79-100) Mean Corpuscular Hemoglobin 27 pg (25-35) Mean Corpuscular Hemoglobin Concent 33 g/dL (31-37) Red Cell Distribution Width 14.4 % (11.5-14.5) Platelet Count 236 x10^3/uL (140-400) Neutrophils (%) (Auto) 74 % (31-73) Lymphocytes (%) (Auto) 20 % (24-48) Monocytes (%) (Auto) 6 % (0-9) Eosinophils (%) (Auto) 0 % (0-3) Basophils (%) (Auto) 0 % (0-3) Neutrophils # (Auto) 9.9 x10^3uL (1.8-7.7) Lymphocytes # (Auto) 2.6 x10^3/uL (1.0-4.8) Monocytes # (Auto) 0.8 x10^3/uL (0.0-1.1) Eosinophils # (Auto) 0.0 x10^3/uL (0.0-0.7) Basophils # (Auto) 0.1 x10^3/uL (0.0-0.2) Sodium Level 138 mmol/L (136-145) Potassium Level 3.8 mmol/L (3.5-5.1) Chloride Level 100 mmol/L (98-107) Carbon Dioxide Level 28 mmol/L (21-32) Anion Gap 10 (6-14) Blood Urea Nitrogen 23 mg/dL (7-20) Creatinine 0.5 mg/dL (0.6-1.0) Estimated GFR (Cockcroft-Gault) 144.9 BUN/Creatinine Ratio 46 (6-20) Glucose Level 143 mg/dL (70-99) Calcium Level 9.0 mg/dL (8.5-10.1) Total Bilirubin 0.5 mg/dL (0.2-1.0) Aspartate Amino Transf (AST/SGOT) 22 U/L (15-37) Alanine Aminotransferase (ALT/SGPT) 226 U/L (14-59) Alkaline Phosphatase 84 U/L (46-116) Total Protein 6.3 g/dL (6.4-8.2) Albumin 2.9 g/dL (3.4-5.0) Albumin/Globulin Ratio 0.9 (1.0-1.7) Glucose (Fingerstick) 147 mg/dL (70-99) O2 Saturation 92 % (92-99) Arterial Blood pH 7.45 (7.35-7.45) Arterial Blood pCO2 at Patient Temp 41 mmHg (35-46) Arterial Blood pO2 at Patient Temp 65 mmHg (85-108) Arterial Blood HCO3 27 mmol/L (21-28) Arterial Blood Base Excess 3 mmol/L (-3-3) FiO2 50 cpap Laboratory Tests Test 08/09/18 18:06 08/10/18 00:10 08/10/18 06:00 08/10/18 06:01 Glucose (Fingerstick) 105 mg/dL (70-99) 155 mg/dL (70-99) 147 mg/dL (70-99) White Blood Count 13.4 x10^3/uL (4.0-11.0) Red Blood Count 4.04 x10^6/uL (3.50-5.40) Hemoglobin 10.9 g/dL (12.0-15.5) Hematocrit 33.2 % (36.0-47.0) Mean Corpuscular Volume 82 fL (79-100) Mean Corpuscular Hemoglobin 27 pg (25-35) Mean Corpuscular Hemoglobin Concent 33 g/dL (31-37) Red Cell Distribution Width 14.4 % (11.5-14.5) Platelet Count 236 x10^3/uL (140-400) Neutrophils (%) (Auto) 74 % (31-73) Lymphocytes (%) (Auto) 20 % (24-48) Monocytes (%) (Auto) 6 % (0-9) Eosinophils (%) (Auto) 0 % (0-3) Basophils (%) (Auto) 0 % (0-3) Neutrophils # (Auto) 9.9 x10^3uL (1.8-7.7) Lymphocytes # (Auto) 2.6 x10^3/uL (1.0-4.8) Monocytes # (Auto) 0.8 x10^3/uL (0.0-1.1) Eosinophils # (Auto) 0.0 x10^3/uL (0.0-0.7) Basophils # (Auto) 0.1 x10^3/uL (0.0-0.2) Sodium Level 138 mmol/L (136-145) Potassium Level 3.8 mmol/L (3.5-5.1) Chloride Level 100 mmol/L (98-107) Carbon Dioxide Level 28 mmol/L (21-32) Anion Gap 10 (6-14) Blood Urea Nitrogen 23 mg/dL (7-20) Creatinine 0.5 mg/dL (0.6-1.0) Estimated GFR (Cockcroft-Gault) 144.9 BUN/Creatinine Ratio 46 (6-20) Glucose Level 143 mg/dL (70-99) Calcium Level 9.0 mg/dL (8.5-10.1) Total Bilirubin 0.5 mg/dL (0.2-1.0) Aspartate Amino Transf (AST/SGOT) 22 U/L (15-37) Alanine Aminotransferase (ALT/SGPT) 226 U/L (14-59) Alkaline Phosphatase 84 U/L (46-116) Total Protein 6.3 g/dL (6.4-8.2) Albumin 2.9 g/dL (3.4-5.0) Albumin/Globulin Ratio 0.9 (1.0-1.7) Test 08/10/18 10:20 O2 Saturation 92 % (92-99) Arterial Blood pH 7.45 (7.35-7.45) Arterial Blood pCO2 at Patient Temp 41 mmHg (35-46) Arterial Blood pO2 at Patient Temp 65 mmHg (85-108) Arterial Blood HCO3 27 mmol/L (21-28) Arterial Blood Base Excess 3 mmol/L (-3-3) FiO2 50 cpap Microbiology 07/28/18 Blood Culture - Final, Complete NO GROWTH AFTER 5 DAYS 08/04/18 - Final, Resulted 08/04/18 - Final, Resulted 08/04/18 , Resulted Pending 08/04/18 Gram Stain Evaluation - Final, Resulted 08/04/18 Sputum Culture - Final, Resulted 08/04/18 Sputum Result 1 - Final, Resulted Medications Current Medications Prednisone (Prednisone) 50 mg 1X ONCE PO Last administered on 07/28/18at 06:47; Start 07/28/18 at 07:00; Stop 07/28/18 at 07:01; Status DC Albuterol/ Ipratropium (Duoneb) 3 ml 1X ONCE NEB Last administered on at 06:37; Start 07/28/18 at 07:00; Stop 07/28/18 at 07:01; Status DC Sodium Chloride 1,000 ml @ 1,000 mls/hr 1X ONCE IV Last administered on at 07:03; Start 07/28/18 at 07:00; Stop 07/28/18 at 07:59; Status DC Albuterol Sulfate (Ventolin Neb Soln) 10 mg 1X ONCE CONT NEB Last administered on 07/28/18at 07:25; Start 07/28/18 at 07:00; Stop 07/28/18 at 07:02; Status DC Magnesium Sulfate 50 ml @ 25 mls/hr 1X ONCE IV Last administered on 07/28/18at 07:41; Start 07/28/18 at 07:15; Stop 07/28/18 at 09:14; Status DC Ceftriaxone Sodium 50 ml @ 100 mls/hr 1X ONCE IV Last administered on at 08:52; Start 07/28/18 at 08:15; Stop 07/28/18 at 08:44; Status DC Azithromycin 250 ml @ 250 mls/hr 1X ONCE IV Last administered on 07/28/18at 09: 20; Start 07/28/18 at 08:15; Stop 07/28/18 at 09:14; Status DC Acetaminophen/ Hydrocodone Bitart (Lortab 5/325) 2 tab 1X ONCE PO Last administered on 07/28/18at 08:49; Start 07/28/18 at 08:45; Stop 07/28/18 at 08:46; Status DC Ondansetron HCl (Zofran) 4 mg PRN Q8HRS PRN IV NAUSEA/VOMITING Last administered on 07/28/18at 22:40; Start 07/28/18 at 08:45; Stop 07/29/18 at 08:44; Status DC Acetaminophen (Tylenol) 650 mg PRN Q4HRS PRN PO FEVER Last administered on at 22:40; Start 07/28/18 at 08:45; Stop 07/29/18 at 08:44; Status DC Albuterol/ Ipratropium (Duoneb) 3 ml RTQID NEB Last administered on 07/29/18at 07 :29; Start 07/28/18 at 12:00; Stop 07/29/18 at 10:30; Status DC Acetaminophen/ Hydrocodone Bitart (Lortab 5/325) 2 tab Q6H PRN PO SEVERE PAIN Last administered on 07/29/18at 23:09; Start 07/28/18 at 08:45 Prednisone (Prednisone) 60 mg DAILY PO ; Start 07/29/18 at 09:00; Stop 07/29/18 at 09:00; Status DC Budesonide (Pulmicort) 0.5 mg RTBID NEB Last administered on 08/10/18at 07:30; Start 07/28/18 at 20:00 Budesonide (Pulmicort) 0.5 mg 1X ONCE NEB Last administered on 07/28/18at 11:06 ; Start 07/28/18 at 09:30; Stop 07/28/18 at 09:31; Status DC Albuterol Sulfate (Ventolin Neb Soln) 2.5 mg PRN Q4HRS PRN NEB SHORTNESS OF BREATH; Start 07/28/18 at 09:30 Azithromycin (Zithromax) 250 mg DAILY PO Last administered on 08/01/18at 08:54; Start 07/28/18 at 10:00; Stop 08/01/18 at 09:01; Status DC Alprazolam (Xanax) 0.25 mg PRN Q6HRS PRN PO ANXIETY / AGITATION Last administered on 08/08/18at 08:24; Start 07/28/18 at 12:45 Ibuprofen (Motrin) 800 mg PRN Q8HRS PRN PO PAIN MILD/INFLAMMATION; Start at 12:45 Benzonatate (Tessalon Perle) 100 mg PRN TID PRN PO COUGH 2ND CHOICE; Start 07/28 at 14:00 Citalopram Hydrobromide (CeleXA) 40 mg DAILY PO Last administered on 08/09/18at 08:09; Start 07/28/18 at 13:00 Metformin HCl (Glucophage) 500 mg BIDWMEALS PO Last administered on 07/29/18at 10 :07; Start 07/28/18 at 17:00; Stop 07/31/18 at 08:58; Status DC Promethazine HCl/ Codeine (Phenergan With Codeine) 5 ml PRN Q6HRS PRN PO COUGH 1ST CHOICE Last administered on 07/29/18at 16:25; Start 07/28/18 at 15:30 Guaifenesin (MUCINEX ER with DM) 1 tab BID PO Last administered on 07/30/18at 20: 57; Start 07/28/18 at 21:00; Stop 07/31/18 at 09:47; Status DC Lactobacillus Rhamnosus (Culturelle) 1 cap BID PO Last administered on at 21:44; Start 07/28/18 at 21:00; Stop 07/30/18 at 09:48; Status DC Prednisone (Prednisone) 30 mg DAILY PO Last administered on 07/29/18at 10:06; Start 07/29/18 at 09:00; Stop 07/31/18 at 08:58; Status DC Ceftriaxone Sodium 1 gm/ Dextrose 50 ml @ 100 mls/hr Q24H IV ; Start 07/29/18 at 09:00; Status UNV Ceftriaxone Sodium (Rocephin) 1 gm Q24H IVP Last administered on 07/29/18at 10:06 ; Start 07/29/18 at 09:00; Stop 07/30/18 at 10:07; Status DC Albuterol/ Ipratropium (Duoneb) 3 ml Q4HRS NEB Last administered on 08/02/18at 08 :40; Start 07/29/18 at 12:00; Stop 08/02/18 at 09:31; Status DC Budesonide (Pulmicort) 0.5 mg RTBID NEB ; Start 07/29/18 at 20:00; Status UNV Famotidine (Pepcid) 20 mg QHS PO Last administered on 07/29/18at 21:44; Start 07/29/18 at 21:00; Stop 07/30/18 at 10:10; Status DC Enoxaparin Sodium (Lovenox 40mg Syringe) 40 mg Q12H SQ Last administered on at 23:56; Start 07/29/18 at 12:30; Stop 08/09/18 at 09:13; Status DC Acetaminophen (Tylenol) 650 mg PRN Q6HRS PRN PO FEVER; Start 07/29/18 at 11:45 Ondansetron HCl (Zofran) 4 mg PRN Q6HRS PRN IV NAUSEA/VOMITING Last administered on 07/29/18at 15:23; Start 07/29/18 at 11:45 Morphine Sulfate (Morphine Sulfate) 2 mg PRN Q2HR PRN IV MODERATE TO SEVERE PAIN; Start 07/29/18 at 11:45 Tramadol HCl (Ultram) 50 mg PRN Q6HRS PRN PO MODERATE PAIN; Start 07/29/18 at 11 :45 Docusate Sodium (Colace) 100 mg PRN DAILY PRN PO CONSTIPATION; Start 07/29/18 at 11:45 Haloperidol Lactate (Haldol Inj) 2 mg PRN Q2HR PRN IVP AGITATION 2ND CHOICE Last administered on 08/01/18at 15:48; Start 07/30/18 at 01:30; Stop 08/07/18 at 21 :38; Status DC Lorazepam (Ativan) 0.25 mg PRN Q1HR PRN IV ANXIETY/AGITATION 1ST CHOICE Last administered on 08/07/18at 06:07; Start 07/30/18 at 01:30 Propofol 100 ml @ As Directed STK-MED ONCE IV ; Start 07/30/18 at 04:12; Stop at 04:13; Status DC Etomidate (Amidate) 20 mg STK-MED ONCE IV ; Start 07/30/18 at 04:18; Stop at 04:19; Status DC Propofol 100 ml @ 0 mls/hr CONT PRN IV PER PROTOCOL Last administered on at 03:25; Start 07/30/18 at 04:30 Chlorhexidine Gluconate (Peridex) 15 ml BID MM Last administered on 08/09/18at 21:01; Start 07/30/18 at 09:00 Midazolam HCl 100 ml @ 0 mls/hr CONT PRN IV PER PROTOCOL Last administered on at 01:30; Start 07/30/18 at 04:30 Piperacillin Sod/ Tazobactam Sod (Zosyn Per Pharmacy) 1 each PRN DAILY PRN MC SEE COMMENTS; Start 07/30/18 at 10:00; Status Cancel Vancomycin HCl (Vanco Per Pharmacy) 1 each PRN DAILY PRN MC SEE COMMENTS Last administered on 08/03/18at 08:31; Start 07/30/18 at 10:00; Stop 08/03/18 at 12:30; Status DC Methylprednisolone Sodium Succinate (SOLU-Medrol 125MG VIAL) 60 mg Q8HRS IV Last administered on 08/03/18at 05:49; Start 07/30/18 at 14:00; Stop 08/03/18 at 06: 32; Status DC Pantoprazole Sodium (PROTONIX VIAL for IV PUSH) 40 mg DAILYAC IVP Last administered on 08/10/18at 08:28; Start 07/30/18 at 10:30 Piperacillin Sod/ Tazobactam Sod 3.375 gm/Sodium Chloride 50 ml @ 100 mls/hr Q6HRS IV Last administered on 08/06/18at 05:35; Start 07/30/18 at 12:00; Stop 11/11 at 07:38; Status DC Vancomycin HCl 2 gm/Sodium Chloride 500 ml @ 250 mls/hr 1X ONCE IV Last administered on 07/30/18at 10:31; Start 07/30/18 at 10:30; Stop 07/30/18 at 12:29; Status DC Vancomycin HCl 1.5 gm/Sodium Chloride 500 ml @ 250 mls/hr Q8H IV Last administered on 07/31/18at 14:10; Start 07/30/18 at 18:30; Stop 07/31/18 at 17:00; Status DC Vancomycin HCl (Vancomycin Trough Level) 1 each 1X ONCE MC Last administered on 07/31/18at 13:30; Start 07/31/18 at 13:30; Stop 07/31/18 at 13:31; Status DC Insulin Human Lispro (HumaLOG) 0-7 UNITS TIDWMEALS SQ ; Start 07/31/18 at 08:00; Stop 07/31/18 at 09:04; Status DC Dextrose (Dextrose 50%-Water Syringe) 12.5 gm PRN Q15MIN PRN IV SEE COMMENTS; Start 07/30/18 at 17:45 Insulin Human Lispro (HumaLOG) 0-7 UNITS Q6HRS SQ Last administered on at 00:14; Start 07/31/18 at 12:00 Vancomycin HCl 1.75 gm/Sodium Chloride 500 ml @ 250 mls/hr Q8H IV Last administered on 08/01/18at 13:48; Start 07/31/18 at 22:00; Stop 08/01/18 at 22:01; Status DC Vancomycin HCl (Vancomycin Trough Level) 1 each 1X ONCE MC Last administered on 08/01/18at 21:01; Start 08/01/18 at 21:30; Stop 08/01/18 at 21:31; Status DC Erythromycin Ethylsuccinate (E.e.s. 200) 200 mg 1X ONCE PEG Last administered on 08/01/18at 12:19; Start 08/01/18 at 13:00; Stop 08/01/18 at 13:01; Status DC Vancomycin HCl 2 gm/Sodium Chloride 500 ml @ 250 mls/hr Q8H IV Last administered on 08/02/18at 22:56; Start 08/01/18 at 22:00; Stop 08/02/18 at 22:59; Status DC Vancomycin HCl (Vancomycin Trough Level) 1 each 1X ONCE MC Last administered on 08/02/18at 21:30; Start 08/02/18 at 21:30; Stop 08/02/18 at 21:31; Status DC Fentanyl Citrate 30 ml @ 0 mls/hr CONT PRN IV PER PROTOCOL Last administered on 08/10/18at 06:05; Start 08/02/18 at 07:00 Enalaprilat (Vasotec Inj) 1.25 mg PRN Q6HRS PRN IVP HYPERTENSION, SEE COMMENTS ; Start 08/02/18 at 09:15 Amlodipine Besylate (Norvasc) 2.5 mg DAILY PO Last administered on 08/09/18at 08 :09; Start 08/02/18 at 10:00 Albuterol/ Ipratropium (Duoneb) 3 ml RTQID NEB Last administered on 08/10/18at 11:46; Start 08/02/18 at 12:00 Vancomycin HCl 1.75 gm/Sodium Chloride 500 ml @ 250 mls/hr Q6H IV Last administered on 08/03/18at 05:53; Start 08/03/18 at 05:00; Stop 08/03/18 at 08:23; Status DC Vancomycin HCl (Vancomycin Trough Level) 1 each 1X ONCE MC ; Start 08/03/18 at 22:30; Stop 08/03/18 at 22:31; Status Cancel Methylprednisolone Sodium Succinate (SOLU-Medrol 125MG VIAL) 40 mg Q8HRS IV Last administered on 08/09/18at 06:29; Start 08/03/18 at 14:00; Stop 08/09/18 at 09:09; Status DC Vancomycin HCl 2 gm/Sodium Chloride 500 ml @ 250 mls/hr Q8H IV ; Start 08/03/18 at 14:00; Stop 08/03/18 at 14:00; Status DC Azithromycin 500 mg/Sodium Chloride 250 ml @ 250 mls/hr Q24H IV Last administered on 08/05/18at 13:08; Start 08/03/18 at 13:00; Stop 08/06/18 at 07:38 ; Status DC Haloperidol Lactate (Haldol Inj) 5 mg PRN Q6HRS PRN IVP AGITATION 2ND CHOICE Last administered on 08/08/18at 16:04; Start 08/07/18 at 21:45 Midazolam HCl (Versed) 2 mg PRN Q1HR PRN IV SEDATION Last administered on at 11:28; Start 08/07/18 at 21:45 Methylprednisolone Sodium Succinate (SOLU-Medrol 40MG VIAL) 40 mg Q12HR IV Last administered on 08/10/18at 08:28; Start 08/09/18 at 21:00 Enoxaparin Sodium (Lovenox 40mg Syringe) 40 mg Q24H SQ Last administered on at 21:00; Start 08/09/18 at 21:00 Furosemide (Lasix) 20 mg 1X ONCE IVP Last administered on 08/10/18at 10:45; Start 08/10/18 at 11:00; Stop 08/10/18 at 11:01; Status DC Active Scripts Active Motrin Ib (Ibuprofen) 200 Mg Tablet 800 Mg PO Q8H PRN Tessalon Perle (Benzonatate) 100 Mg Capsule 100 Mg PO TID PRN Prednisone 20 Mg Tablet 40 Mg PO DAILY START MEDICATIONS ON 08/07/2016 Medrol (Methylprednisolone) 4 Mg Tab.ds.pk 1 Pkg PO UD Levaquin (Levofloxacin) 750 Mg Tablet 750 Mg PO DAILY06 Advair 250-50 Diskus (Fluticasone/Salmeterol) 1 Puff Puff 1 Puff INH BID Reported Topiramate 25 Mg Tablet 1 Tab PO HS Phentermine Hcl 37.5 Mg Capsule 1 Cap PO [id number] Metformin Hcl 500 Mg Tablet 500 Mg PO BIDWMEALS Escitalopram Oxalate 20 Mg Tablet 1 Tab PO DAILY Xanax (Alprazolam) 0.25 Mg Tablet 0.25 Mg PO PRN Q6HRS PRN Vitals/I & O Vital Sign - Last 24 Hours 08/09/18 08/09/18 08/09/18 08/09/18 13:38 14:00 15:00 15:09 Pulse 58 49 Resp 19 18 B/P (MAP) 117/56 (76) 114/56 (75) Pulse Ox 96 95 95 96 O2 Delivery Ventilator Ventilator Ventilator Ventilator 08/09/18 08/09/18 08/09/18 08/09/18 16:00 16:01 17:00 17:46 Temp 99.3 99.3 Pulse 62 65 Resp 19 19 B/P (MAP) 117/58 (77) 99/55 (70) Pulse Ox 94 96 96 O2 Delivery Ventilator Mechanical Ventilator Ventilator Ventilator 08/09/18 08/09/18 08/09/18 08/09/18 18:00 18:34 18:59 19:00 Pulse 53 86 Resp 18 18 21 B/P (MAP) 99/55 (70) 109/79 (89) Pulse Ox 95 95 96 90 O2 Delivery Ventilator Ventilator Ventilator 08/09/18 08/09/18 08/09/18 08/09/18 19:04 20:00 20:00 21:00 Temp 99.1 99.1 Pulse 68 75 Resp 18 18 18 B/P (MAP) 111/53 (72) 99/70 (80) Pulse Ox 91 93 93 O2 Delivery Ventilator Ventilator Mechanical Ventilator Ventilator 08/09/18 08/09/18 08/09/18 08/09/18 21:55 22:00 23:00 23:50 Pulse 57 56 Resp 18 18 B/P (MAP) 100/47 (64) 111/53 (72) Pulse Ox 95 93 93 95 O2 Delivery Ventilator Ventilator Ventilator Ventilator 08/10/18 08/10/18 08/10/18 08/10/18 00:00 00:00 01:00 02:00 Temp 99.0 99.0 Pulse 53 70 63 Resp 18 18 18 B/P (MAP) 111/55 (73) 127/67 (87) 150/79 (102) Pulse Ox 93 94 94 O2 Delivery Ventilator Mechanical Ventilator Ventilator Ventilator 08/10/18 08/10/18 08/10/18 08/10/18 02:03 03:00 04:00 04:00 Temp 98.8 98.8 Pulse 75 70 Resp 18 18 B/P (MAP) 158/69 (98) 120/64 (82) Pulse Ox 92 93 93 O2 Delivery Ventilator Ventilator Mechanical Ventilator Ventilator 08/10/18 08/10/18 08/10/18 08/10/18 04:10 05:00 05:52 06:00 Pulse 53 56 Resp 18 18 B/P (MAP) 123/68 (86) 137/61 (86) Pulse Ox 92 93 94 94 O2 Delivery Ventilator Ventilator Ventilator Ventilator 08/10/18 08/10/18 08/10/18 08/10/18 07:00 07:30 08:00 08:00 Temp 99.3 99.3 Pulse 56 66 Resp 18 18 B/P (MAP) 139/66 (90) 150/79 (102) Pulse Ox 94 93 94 O2 Delivery Ventilator Ventilator Mechanical Ventilator Ventilator 08/10/18 08/10/18 08/10/18 08/10/18 09:00 09:23 10:00 11:00 Pulse 74 117 75 Resp 24 25 31 B/P (MAP) 148/91 (110) 165/91 (115) 128/79 (95) Pulse Ox 94 94 93 91 O2 Delivery Ventilator Ventilator Ventilator Venturi Mask O2 Flow Rate 15.0 08/10/18 08/10/18 08/10/18 11:46 12:00 12:00 Temp 98.3 98.3 Pulse 78 Resp 31 B/P (MAP) 124/81 (95) Pulse Ox 92 92 O2 Delivery Nasal Cannula Nasal Cannula Nasal Cannula O2 Flow Rate 10.0 10.0 10.0 Intake and Output 08/09/18 08/09/18 08/10/18 15:00 23:00 07:00 Intake Total 709 ml 699 ml 1344.1 ml Output Total 810 ml 480 ml 475 ml Balance -101 ml 219 ml 869.1 ml YULISSA,NIAL K III DO Aug 10, 2018 13:18
[2018-08-10] MEDS: ENOXAPARIN 40 MG/0.4 ML SYRINGE. SQ SCH (22:21)
[2018-08-11] VITALS (18 sets, daily range): BP systolic 110–145; BP diastolic 48–104
[2018-08-11 05:42] LABS: BASO # 0.1 x10^3/uL (0.0-0.2); BASO % 0 % (0-3); EOS % 0 % (0-3); HEMATOCRIT 38.4 % (36.0-47.0); HEMOGLOBIN 12.8 g/dL (12.0-15.5); LYMPH # 2.5 x10^3/uL (1.0-4.8); LYMPH % 18 % (24-48); MEAN CORPUSCULAR HEMOGLOBIN 27 pg (25-35); MEAN CORPUSCULAR HGB CONC 33 g/dL (31-37); MEAN CORPUSCULAR VOLUME 82 fL (79-100); MONO # 0.6 x10^3/uL (0.0-1.1); MONO % 4 % (0-9); NEUT # 10.5 x10^3uL (1.8-7.7); NEUT % 77 % (31-73); PLATELET COUNT 308 x10^3/uL (140-400); RED BLOOD COUNT 4.71 x10^6/uL (3.50-5.40); RED CELL DISTRIBUTION WIDTH 14.3 % (11.5-14.5); WHITE BLOOD COUNT 13.7 x10^3/uL (4.0-11.0)
[2018-08-11] MEDS: INSULIN LISPRO 300 UNITS/3 ML INSULN.PEN. SQ SCH ×5 (06:00→21:00)
[2018-08-11 06:06] LABS: CALCIUM 9.2 mg/dL (8.5-10.1); CREATININE 0.6 mg/dL (0.6-1.0); GFR 117.4
[2018-08-11] MEDS: amLODIPine BESYLATE 2.5 MG TABLET PO SCH (07:48)
[2018-08-11] MEDS: CITALOPRAM 20 MG TABLET. PO SCH (07:48)
[2018-08-11] MEDS: PANTOPRAZOLE IV PUSH 40 MG VIAL. IVP SCH (08:00)
[2018-08-11] MEDS: methylPREDNISolone SOD SUCC PF 40 MG/ML VIAL. IV SCH (08:01)
[2018-08-11] MEDS: BUDESONIDE 0.5 MG/2 ML NEBU. NEB SCH ×2 (08:18→19:55)
[2018-08-11] MEDS: IPRATRPIUM/ALBUTEROL 0.5/2.5MG 3 ML NEBU. NEB SCH ×4 (08:18→19:55)
--- NOTE | 2018-08-11 10:05 | PDOC ---
PULMONARY PROGRESS NOTES Subjective extubated 04/09 doing well Vitals Vital Signs Date Time Temp Pulse Resp B/P (MAP) Pulse Ox O2 Delivery O2 Flow Rate FiO2 08/11/18 09:00 105 32 134/69 (90) 94 Nasal Cannula 4.0 08/11/18 08:00 98.6 98.6 Comments ros as mentioned as above, discussed w rn, other sys otherwise neg sedated on vent General: Alert, No acute distress HEENT: Other (nc at perrl. nose throat clear.... neck, no lad, no thyromegaly) Cardiovascular: S1, S2 Abdomen: Soft, Non-tender Neuro Exam: Alert Extremities: Other (trace edema) Skin: Warm Labs Laboratory Tests Test 08/09/18 11:00 08/09/18 11:14 08/09/18 18:06 08/10/18 00:10 O2 Saturation 95 % (92-99) Arterial Blood pH 7.44 (7.35-7.45) Arterial Blood pCO2 at Patient Temp 42 mmHg (35-46) Arterial Blood pO2 at Patient Temp 79 mmHg (85-108) Arterial Blood HCO3 28 mmol/L (21-28) Arterial Blood Base Excess 3 mmol/L (-3-3) Oxyhemoglobin 94.6 % Methemoglobin 0.3 % (0.0-1.9) Carbon Monoxide, Quantitative 0.3 % (0.0-1.9) FiO2 40 Glucose (Fingerstick) 170 mg/dL (70-99) 105 mg/dL (70-99) 155 mg/dL (70-99) Test 08/10/18 06:00 08/10/18 06:01 08/10/18 10:20 08/10/18 18:26 White Blood Count 13.4 x10^3/uL (4.0-11.0) Red Blood Count 4.04 x10^6/uL (3.50-5.40) Hemoglobin 10.9 g/dL (12.0-15.5) Hematocrit 33.2 % (36.0-47.0) Mean Corpuscular Volume 82 fL (79-100) Mean Corpuscular Hemoglobin 27 pg (25-35) Mean Corpuscular Hemoglobin Concent 33 g/dL (31-37) Red Cell Distribution Width 14.4 % (11.5-14.5) Platelet Count 236 x10^3/uL (140-400) Neutrophils (%) (Auto) 74 % (31-73) Lymphocytes (%) (Auto) 20 % (24-48) Monocytes (%) (Auto) 6 % (0-9) Eosinophils (%) (Auto) 0 % (0-3) Basophils (%) (Auto) 0 % (0-3) Neutrophils # (Auto) 9.9 x10^3uL (1.8-7.7) Lymphocytes # (Auto) 2.6 x10^3/uL (1.0-4.8) Monocytes # (Auto) 0.8 x10^3/uL (0.0-1.1) Eosinophils # (Auto) 0.0 x10^3/uL (0.0-0.7) Basophils # (Auto) 0.1 x10^3/uL (0.0-0.2) Sodium Level 138 mmol/L (136-145) Potassium Level 3.8 mmol/L (3.5-5.1) Chloride Level 100 mmol/L (98-107) Carbon Dioxide Level 28 mmol/L (21-32) Anion Gap 10 (6-14) Blood Urea Nitrogen 23 mg/dL (7-20) Creatinine 0.5 mg/dL (0.6-1.0) Estimated GFR (Cockcroft-Gault) 144.9 BUN/Creatinine Ratio 46 (6-20) Glucose Level 143 mg/dL (70-99) Calcium Level 9.0 mg/dL (8.5-10.1) Total Bilirubin 0.5 mg/dL (0.2-1.0) Aspartate Amino Transf (AST/SGOT) 22 U/L (15-37) Alanine Aminotransferase (ALT/SGPT) 226 U/L (14-59) Alkaline Phosphatase 84 U/L (46-116) Total Protein 6.3 g/dL (6.4-8.2) Albumin 2.9 g/dL (3.4-5.0) Albumin/Globulin Ratio 0.9 (1.0-1.7) Glucose (Fingerstick) 147 mg/dL (70-99) 92 mg/dL (70-99) O2 Saturation 92 % (92-99) Arterial Blood pH 7.45 (7.35-7.45) [facility] Arterial Blood pO2 at Patient Temp 65 mmHg (85-108) Arterial Blood HCO3 27 mmol/L (21-28) Arterial Blood Base Excess 3 mmol/L (-3-3) FiO2 50 cpap Test 08/11/18 00:20 08/11/18 05:20 Glucose (Fingerstick) 102 mg/dL (70-99) White Blood Count 13.7 x10^3/uL (4.0-11.0) Red Blood Count 4.71 x10^6/uL (3.50-5.40) Hemoglobin 12.8 g/dL (12.0-15.5) Hematocrit 38.4 % (36.0-47.0) Mean Corpuscular Volume 82 fL (79-100) Mean Corpuscular Hemoglobin 27 pg (25-35) Mean Corpuscular Hemoglobin Concent 33 g/dL (31-37) Red Cell Distribution Width 14.3 % (11.5-14.5) Platelet Count 308 x10^3/uL (140-400) Neutrophils (%) (Auto) 77 % (31-73) Lymphocytes (%) (Auto) 18 % (24-48) Monocytes (%) (Auto) 4 % (0-9) Eosinophils (%) (Auto) 0 % (0-3) Basophils (%) (Auto) 0 % (0-3) Neutrophils # (Auto) 10.5 x10^3uL (1.8-7.7) Lymphocytes # (Auto) 2.5 x10^3/uL (1.0-4.8) Monocytes # (Auto) 0.6 x10^3/uL (0.0-1.1) Eosinophils # (Auto) 0.0 x10^3/uL (0.0-0.7) Basophils # (Auto) 0.1 x10^3/uL (0.0-0.2) Sodium Level 139 mmol/L (136-145) Potassium Level 4.0 mmol/L (3.5-5.1) Chloride Level 101 mmol/L (98-107) Carbon Dioxide Level 30 mmol/L (21-32) Anion Gap 8 (6-14) Blood Urea Nitrogen 23 mg/dL (7-20) Creatinine 0.6 mg/dL (0.6-1.0) Estimated GFR (Cockcroft-Gault) 117.4 Glucose Level 130 mg/dL (70-99) Calcium Level 9.2 mg/dL (8.5-10.1) Laboratory Tests Test 08/10/18 10:20 08/10/18 18:26 08/11/18 00:20 08/11/18 05:20 O2 Saturation 92 % (92-99) Arterial Blood pH 7.45 (7.35-7.45) Arterial Blood pCO2 at Patient Temp 41 mmHg (35-46) Arterial Blood pO2 at Patient Temp 65 mmHg (85-108) Arterial Blood HCO3 27 mmol/L (21-28) Arterial Blood Base Excess 3 mmol/L (-3-3) FiO2 50 cpap Glucose (Fingerstick) 92 mg/dL (70-99) 102 mg/dL (70-99) White Blood Count 13.7 x10^3/uL (4.0-11.0) Red Blood Count 4.71 x10^6/uL (3.50-5.40) Hemoglobin 12.8 g/dL (12.0-15.5) Hematocrit 38.4 % (36.0-47.0) Mean Corpuscular Volume 82 fL (79-100) Mean Corpuscular Hemoglobin 27 pg (25-35) Mean Corpuscular Hemoglobin Concent 33 g/dL (31-37) Red Cell Distribution Width 14.3 % (11.5-14.5) Platelet Count 308 x10^3/uL (140-400) Neutrophils (%) (Auto) 77 % (31-73) Lymphocytes (%) (Auto) 18 % (24-48) Monocytes (%) (Auto) 4 % (0-9) Eosinophils (%) (Auto) 0 % (0-3) Basophils (%) (Auto) 0 % (0-3) Neutrophils # (Auto) 10.5 x10^3uL (1.8-7.7) Lymphocytes # (Auto) 2.5 x10^3/uL (1.0-4.8) Monocytes # (Auto) 0.6 x10^3/uL (0.0-1.1) Eosinophils # (Auto) 0.0 x10^3/uL (0.0-0.7) Basophils # (Auto) 0.1 x10^3/uL (0.0-0.2) Sodium Level 139 mmol/L (136-145) Potassium Level 4.0 mmol/L (3.5-5.1) Chloride Level 101 mmol/L (98-107) Carbon Dioxide Level 30 mmol/L (21-32) Anion Gap 8 (6-14) Blood Urea Nitrogen 23 mg/dL (7-20) Creatinine 0.6 mg/dL (0.6-1.0) Estimated GFR (Cockcroft-Gault) 117.4 Glucose Level 130 mg/dL (70-99) Calcium Level 9.2 mg/dL (8.5-10.1) Medications Active Scripts Medications Dose Route/Sig Max Daily Dose Days Date Category Dose Instructions Topiramate 25 Mg Tablet 1 Tab PO HS 07/28/18 Reported Phentermine Hcl 37.5 Mg Capsule 1 Cap PO [id number] 07/28/18 Reported Metformin Hcl 500 Mg Tablet 500 Mg PO BIDWMEALS 07/28/18 Reported Motrin Ib (Ibuprofen) 200 Mg Tablet 800 Mg PO Q8H PRN 08/15/17 Rx Tessalon Perle (Benzonatate) 100 Mg Capsule 100 Mg PO TID PRN 01/11/17 Rx Prednisone 20 Mg Tablet 40 Mg PO DAILY 08/06/16 Rx START MEDICATIONS ON 08/07/2016 Medrol (Methylprednisolone) 4 Mg Tab.ds.pk 1 Pkg PO UD 11/16/14 Rx Levaquin (Levofloxacin) 750 Mg Tablet 750 Mg PO DAILY06 11/16/14 Rx Advair 250-50 Diskus (Fluticasone/Salmeterol) 1 Puff Puff 1 Puff INH BID 11/16/14 Rx Escitalopram Oxalate 20 Mg Tablet 1 Tab PO DAILY 11/09/14 Reported Xanax (Alprazolam) 0.25 Mg Tablet 0.25 Mg PO PRN Q6HRS PRN 11/09/14 Reported Comments cxr reviewed, mild residual infiltrates Impression . 1. Acute respiratory failure requiring mechanical ventilation 07/30. ARDS/ diffuse pneumonia. extubated 08/10 2. Acute exacerbation of chronic obstructive pulmonary disease with an asthma component. resolved. 3. abnl cxr, Diffuse lung infiltrates, suspect diffuse lung pneumonia/ ARDS/ improved 4. Morbid obesity, body mass index of 40, prob ji. 5. H/O Anxiety/panic attacks. 6. Status post cholecystectomy. influenza neg strep antigen/Legionella/Mycoplasma,, neg Rhino virus positive Plan . cont nasal canula Home CPAP qhs Swallow eval 02 titration to keep sat 94% taper off solumedrol BD ICS protonix, lovenox for prophylaxis monitor off abx, id on case PT consulted transfer to floor discussed w rn, rt, pt MINI ORTIZ MD Aug 11, 2018 10:05
--- NOTE | 2018-08-11 10:54 | PDOC ---
Subjective: Subjective: Feeling okay, denies pain, says breathing okay. Objective: Objective: No GI concerns per RN - to have swallow eval and transfer out of ICU today. Vital Signs: Vital Signs Date Time Temp Pulse Resp B/P (MAP) Pulse Ox O2 Delivery O2 Flow Rate FiO2 08/11/18 10:00 92 33 139/73 (95) 95 Nasal Cannula 4.0 08/11/18 08:00 98.6 98.6 Labs: Laboratory Tests Test 08/10/18 18:26 08/11/18 00:20 08/11/18 05:20 Glucose (Fingerstick) 92 mg/dL 102 mg/dL White Blood Count 13.7 x10^3/uL Red Blood Count 4.71 x10^6/uL Hemoglobin 12.8 g/dL Hematocrit 38.4 % Mean Corpuscular Volume 82 fL Mean Corpuscular Hemoglobin 27 pg Mean Corpuscular Hemoglobin Concent 33 g/dL Red Cell Distribution Width 14.3 % Platelet Count 308 x10^3/uL Neutrophils (%) (Auto) 77 % Lymphocytes (%) (Auto) 18 % Monocytes (%) (Auto) 4 % Eosinophils (%) (Auto) 0 % Basophils (%) (Auto) 0 % Neutrophils # (Auto) 10.5 x10^3uL Lymphocytes # (Auto) 2.5 x10^3/uL Monocytes # (Auto) 0.6 x10^3/uL Eosinophils # (Auto) 0.0 x10^3/uL Basophils # (Auto) 0.1 x10^3/uL Sodium Level 139 mmol/L Potassium Level 4.0 mmol/L Chloride Level 101 mmol/L Carbon Dioxide Level 30 mmol/L Anion Gap 8 Blood Urea Nitrogen 23 mg/dL Creatinine 0.6 mg/dL Estimated GFR (Cockcroft-Gault) 117.4 Glucose Level 130 mg/dL Calcium Level 9.2 mg/dL PE: GEN: NAD, up to chair LUNGS: room air HEART: RRR ABD: S/ND/NT NEURO/PSYCH: A & O 3 A/P: ARDS/pneumonia - extubated -- Plans for swallow eval, await this. ANGE VILLEDA Aug 11, 2018 10:54
--- NOTE | 2018-08-11 14:39 | PDOC ---
PROGRESS NOTES Chief Complaint Chief Complaint Severe asthma Acute hypoxic respiratory failure with intubation Sepsis Pneumonia EZ lobe Acute asthma exacerbation Obesity Possible ileus Transaminitis, NOS History of Present Illness History of Present Illness Pt seen and examined in ICU Dw RN Pt now extubated and talking , but slow. Up in chair working with PT/OT Vitals Vitals Vital Signs Date Time Temp Pulse Resp B/P (MAP) Pulse Ox O2 Delivery O2 Flow Rate FiO2 08/11/18 12:14 Nasal Cannula 4.0 08/11/18 12:00 98.7 98 30 145/84 (104) 96 98.7 Physical Exam Physical Exam GENERAL: Propped up in bed, alert, calm HEENT: Pupils are equal and reactive, ETT and OGT LUNGS: Clear anteriorly HEART: S1, S2 ABDOMEN: Obese, soft, nontender, positive bowel sounds. : [place] EXTREMITIES: No clubbing, cyanosis or gross edema. SKIN: Without signs of rash. NEUROLOGIC: Alert, nods to simple questions appropriately and follows commands RIJ (07/30) clean General: Alert, Oriented X3, No acute distress, Other Heart: Regular rate, Normal S1, Normal S2 Abdomen: Normal bowel sounds, Soft Extremities: No cyanosis, No edema, Normal pulses Skin: No rashes, No significant lesion Labs LABS Laboratory Tests Test 08/10/18 18:26 08/11/18 00:20 08/11/18 05:20 08/11/18 12:35 Glucose (Fingerstick) 92 mg/dL (70-99) 102 mg/dL (70-99) 131 mg/dL (70-99) White Blood Count 13.7 x10^3/uL (4.0-11.0) Red Blood Count 4.71 x10^6/uL (3.50-5.40) Hemoglobin 12.8 g/dL (12.0-15.5) Hematocrit 38.4 % (36.0-47.0) Mean Corpuscular Volume 82 fL (79-100) Mean Corpuscular Hemoglobin 27 pg (25-35) Mean Corpuscular Hemoglobin Concent 33 g/dL (31-37) Red Cell Distribution Width 14.3 % (11.5-14.5) Platelet Count 308 x10^3/uL (140-400) Neutrophils (%) (Auto) 77 % (31-73) Lymphocytes (%) (Auto) 18 % (24-48) Monocytes (%) (Auto) 4 % (0-9) Eosinophils (%) (Auto) 0 % (0-3) Basophils (%) (Auto) 0 % (0-3) Neutrophils # (Auto) 10.5 x10^3uL (1.8-7.7) Lymphocytes # (Auto) 2.5 x10^3/uL (1.0-4.8) Monocytes # (Auto) 0.6 x10^3/uL (0.0-1.1) Eosinophils # (Auto) 0.0 x10^3/uL (0.0-0.7) Basophils # (Auto) 0.1 x10^3/uL (0.0-0.2) Sodium Level 139 mmol/L (136-145) Potassium Level 4.0 mmol/L (3.5-5.1) Chloride Level 101 mmol/L (98-107) Carbon Dioxide Level 30 mmol/L (21-32) Anion Gap 8 (6-14) Blood Urea Nitrogen 23 mg/dL (7-20) Creatinine 0.6 mg/dL (0.6-1.0) Estimated GFR (Cockcroft-Gault) 117.4 Glucose Level 130 mg/dL (70-99) Calcium Level 9.2 mg/dL (8.5-10.1) Review of Systems Review of Systems co weakness co soa but much less Assessment and Plan Assessmemt and Plan Problems Medical Problems: (1) Pneumonia Status: Acute Severe asthma Acute hypoxic respiratory failure with intubation Sepsis Pneumonia EZ lobe Acute asthma exacerbation Obesity Possible ileus Transaminitis, NOS Plan ICU Nebs O2 Antibx Steroids PTOT Home meds Labs Comment Review of Relevant I have reviewed the following items [place] (where applicable) has been applied. Labs Laboratory Tests Test 08/09/18 18:06 08/10/18 00:10 08/10/18 06:00 08/10/18 06:01 Glucose (Fingerstick) 105 mg/dL (70-99) 155 mg/dL (70-99) 147 mg/dL (70-99) White Blood Count 13.4 x10^3/uL (4.0-11.0) Red Blood Count 4.04 x10^6/uL (3.50-5.40) Hemoglobin 10.9 g/dL (12.0-15.5) Hematocrit 33.2 % (36.0-47.0) Mean Corpuscular Volume 82 fL (79-100) Mean Corpuscular Hemoglobin 27 pg (25-35) Mean Corpuscular Hemoglobin Concent 33 g/dL (31-37) Red Cell Distribution Width 14.4 % (11.5-14.5) Platelet Count 236 x10^3/uL (140-400) Neutrophils (%) (Auto) 74 % (31-73) Lymphocytes (%) (Auto) 20 % (24-48) Monocytes (%) (Auto) 6 % (0-9) Eosinophils (%) (Auto) 0 % (0-3) Basophils (%) (Auto) 0 % (0-3) Neutrophils # (Auto) 9.9 x10^3uL (1.8-7.7) Lymphocytes # (Auto) 2.6 x10^3/uL (1.0-4.8) Monocytes # (Auto) 0.8 x10^3/uL (0.0-1.1) Eosinophils # (Auto) 0.0 x10^3/uL (0.0-0.7) Basophils # (Auto) 0.1 x10^3/uL (0.0-0.2) Sodium Level 138 mmol/L (136-145) Potassium Level 3.8 mmol/L (3.5-5.1) Chloride Level 100 mmol/L (98-107) Carbon Dioxide Level 28 mmol/L (21-32) Anion Gap 10 (6-14) Blood Urea Nitrogen 23 mg/dL (7-20) Creatinine 0.5 mg/dL (0.6-1.0) Estimated GFR (Cockcroft-Gault) 144.9 BUN/Creatinine Ratio 46 (6-20) Glucose Level 143 mg/dL (70-99) Calcium Level 9.0 mg/dL (8.5-10.1) Total Bilirubin 0.5 mg/dL (0.2-1.0) Aspartate Amino Transf (AST/SGOT) 22 U/L (15-37) Alanine Aminotransferase (ALT/SGPT) 226 U/L (14-59) Alkaline Phosphatase 84 U/L (46-116) Total Protein 6.3 g/dL (6.4-8.2) Albumin 2.9 g/dL (3.4-5.0) Albumin/Globulin Ratio 0.9 (1.0-1.7) Test 08/10/18 10:20 08/10/18 18:26 08/11/18 00:20 08/11/18 05:20 O2 Saturation 92 % (92-99) Arterial Blood pH 7.45 (7.35-7.45) Arterial Blood pCO2 at Patient Temp 41 mmHg (35-46) Arterial Blood pO2 at Patient Temp 65 mmHg (85-108) Arterial Blood HCO3 27 mmol/L (21-28) Arterial Blood Base Excess 3 mmol/L (-3-3) FiO2 50 cpap Glucose (Fingerstick) 92 mg/dL (70-99) 102 mg/dL (70-99) White Blood Count 13.7 x10^3/uL (4.0-11.0) Red Blood Count 4.71 x10^6/uL (3.50-5.40) Hemoglobin 12.8 g/dL (12.0-15.5) Hematocrit 38.4 % (36.0-47.0) Mean Corpuscular Volume 82 fL (79-100) Mean Corpuscular Hemoglobin 27 pg (25-35) Mean Corpuscular Hemoglobin Concent 33 g/dL (31-37) Red Cell Distribution Width 14.3 % (11.5-14.5) Platelet Count 308 x10^3/uL (140-400) Neutrophils (%) (Auto) 77 % (31-73) Lymphocytes (%) (Auto) 18 % (24-48) Monocytes (%) (Auto) 4 % (0-9) Eosinophils (%) (Auto) 0 % (0-3) Basophils (%) (Auto) 0 % (0-3) Neutrophils # (Auto) 10.5 x10^3uL (1.8-7.7) Lymphocytes # (Auto) 2.5 x10^3/uL (1.0-4.8) Monocytes # (Auto) 0.6 x10^3/uL (0.0-1.1) Eosinophils # (Auto) 0.0 x10^3/uL (0.0-0.7) Basophils # (Auto) 0.1 x10^3/uL (0.0-0.2) Sodium Level 139 mmol/L (136-145) Potassium Level 4.0 mmol/L (3.5-5.1) Chloride Level 101 mmol/L (98-107) Carbon Dioxide Level 30 mmol/L (21-32) Anion Gap 8 (6-14) Blood Urea Nitrogen 23 mg/dL (7-20) Creatinine 0.6 mg/dL (0.6-1.0) Estimated GFR (Cockcroft-Gault) 117.4 Glucose Level 130 mg/dL (70-99) Calcium Level 9.2 mg/dL (8.5-10.1) Test 08/11/18 12:35 Glucose (Fingerstick) 131 mg/dL (70-99) Laboratory Tests Test 08/10/18 18:26 08/11/18 00:20 08/11/18 05:20 08/11/18 12:35 Glucose (Fingerstick) 92 mg/dL (70-99) 102 mg/dL (70-99) 131 mg/dL (70-99) White Blood Count 13.7 x10^3/uL (4.0-11.0) Red Blood Count 4.71 x10^6/uL (3.50-5.40) Hemoglobin 12.8 g/dL (12.0-15.5) Hematocrit 38.4 % (36.0-47.0) Mean Corpuscular Volume 82 fL (79-100) Mean Corpuscular Hemoglobin 27 pg (25-35) Mean Corpuscular Hemoglobin Concent 33 g/dL (31-37) Red Cell Distribution Width 14.3 % (11.5-14.5) Platelet Count 308 x10^3/uL (140-400) Neutrophils (%) (Auto) 77 % (31-73) Lymphocytes (%) (Auto) 18 % (24-48) Monocytes (%) (Auto) 4 % (0-9) Eosinophils (%) (Auto) 0 % (0-3) Basophils (%) (Auto) 0 % (0-3) Neutrophils # (Auto) 10.5 x10^3uL (1.8-7.7) Lymphocytes # (Auto) 2.5 x10^3/uL (1.0-4.8) Monocytes # (Auto) 0.6 x10^3/uL (0.0-1.1) Eosinophils # (Auto) 0.0 x10^3/uL (0.0-0.7) Basophils # (Auto) 0.1 x10^3/uL (0.0-0.2) Sodium Level 139 mmol/L (136-145) Potassium Level 4.0 mmol/L (3.5-5.1) Chloride Level 101 mmol/L (98-107) Carbon Dioxide Level 30 mmol/L (21-32) Anion Gap 8 (6-14) Blood Urea Nitrogen 23 mg/dL (7-20) Creatinine 0.6 mg/dL (0.6-1.0) Estimated GFR (Cockcroft-Gault) 117.4 Glucose Level 130 mg/dL (70-99) Calcium Level 9.2 mg/dL (8.5-10.1) Microbiology 07/28/18 Blood Culture - Final, Complete NO GROWTH AFTER 5 DAYS 08/09/18 - Final, Resulted 08/09/18 - Final, Resulted 08/09/18 - Final, Resulted 08/09/18 Gram Stain Evaluation - Final, Resulted 08/09/18 Sputum Culture, Resulted Pending Medications Current Medications Prednisone (Prednisone) 50 mg 1X ONCE PO Last administered on 07/28/18at 06:47; Start 07/28/18 at 07:00; Stop 07/28/18 at 07:01; Status DC Albuterol/ Ipratropium (Duoneb) 3 ml 1X ONCE NEB Last administered on at 06:37; Start 07/28/18 at 07:00; Stop 07/28/18 at 07:01; Status DC Sodium Chloride 1,000 ml @ 1,000 mls/hr 1X ONCE IV Last administered on at 07:03; Start 07/28/18 at 07:00; Stop 07/28/18 at 07:59; Status DC Albuterol Sulfate (Ventolin Neb Soln) 10 mg 1X ONCE CONT NEB Last administered on 07/28/18at 07:25; Start 07/28/18 at 07:00; Stop 07/28/18 at 07:02; Status DC Magnesium Sulfate 50 ml @ 25 mls/hr 1X ONCE IV Last administered on 07/28/18at 07:41; Start 07/28/18 at 07:15; Stop 07/28/18 at 09:14; Status DC Ceftriaxone Sodium 50 ml @ 100 mls/hr 1X ONCE IV Last administered on at 08:52; Start 07/28/18 at 08:15; Stop 07/28/18 at 08:44; Status DC Azithromycin 250 ml @ 250 mls/hr 1X ONCE IV Last administered on 07/28/18at 09: 20; Start 07/28/18 at 08:15; Stop 07/28/18 at 09:14; Status DC Acetaminophen/ Hydrocodone Bitart (Lortab 5/325) 2 tab 1X ONCE PO Last administered on 07/28/18at 08:49; Start 07/28/18 at 08:45; Stop 07/28/18 at 08:46; Status DC Ondansetron HCl (Zofran) 4 mg PRN Q8HRS PRN IV NAUSEA/VOMITING Last administered on 07/28/18at 22:40; Start 07/28/18 at 08:45; Stop 07/29/18 at 08:44; Status DC Acetaminophen (Tylenol) 650 mg PRN Q4HRS PRN PO FEVER Last administered on at 22:40; Start 07/28/18 at 08:45; Stop 07/29/18 at 08:44; Status DC Albuterol/ Ipratropium (Duoneb) 3 ml RTQID NEB Last administered on 07/29/18at 07 :29; Start 07/28/18 at 12:00; Stop 07/29/18 at 10:30; Status DC Acetaminophen/ Hydrocodone Bitart (Lortab 5/325) 2 tab Q6H PRN PO SEVERE PAIN Last administered on 07/29/18at 23:09; Start 07/28/18 at 08:45 Prednisone (Prednisone) 60 mg DAILY PO ; Start 07/29/18 at 09:00; Stop 07/29/18 at 09:00; Status DC Budesonide (Pulmicort) 0.5 mg RTBID NEB Last administered on 08/11/18at 08:18; Start 07/28/18 at 20:00 Budesonide (Pulmicort) 0.5 mg 1X ONCE NEB Last administered on 07/28/18at 11:06 ; Start 07/28/18 at 09:30; Stop 07/28/18 at 09:31; Status DC Albuterol Sulfate (Ventolin Neb Soln) 2.5 mg PRN Q4HRS PRN NEB SHORTNESS OF BREATH; Start 07/28/18 at 09:30 Azithromycin (Zithromax) 250 mg DAILY PO Last administered on 08/01/18at 08:54; Start 07/28/18 at 10:00; Stop 08/01/18 at 09:01; Status DC Alprazolam (Xanax) 0.25 mg PRN Q6HRS PRN PO ANXIETY / AGITATION Last administered on 08/08/18at 08:24; Start 07/28/18 at 12:45 Ibuprofen (Motrin) 800 mg PRN Q8HRS PRN PO PAIN MILD/INFLAMMATION; Start at 12:45 Benzonatate (Tessalon Perle) 100 mg PRN TID PRN PO COUGH 2ND CHOICE; Start 07/28 at 14:00 Citalopram Hydrobromide (CeleXA) 40 mg DAILY PO Last administered on 08/09/18at 08:09; Start 07/28/18 at 13:00 Metformin HCl (Glucophage) 500 mg BIDWMEALS PO Last administered on 07/29/18at 10 :07; Start 07/28/18 at 17:00; Stop 07/31/18 at 08:58; Status DC Promethazine HCl/ Codeine (Phenergan With Codeine) 5 ml PRN Q6HRS PRN PO COUGH 1ST CHOICE Last administered on 07/29/18at 16:25; Start 07/28/18 at 15:30 Guaifenesin (MUCINEX ER with DM) 1 tab BID PO Last administered on 07/30/18at 20: 57; Start 07/28/18 at 21:00; Stop 07/31/18 at 09:47; Status DC Lactobacillus Rhamnosus (Culturelle) 1 cap BID PO Last administered on at 21:44; Start 07/28/18 at 21:00; Stop 07/30/18 at 09:48; Status DC Prednisone (Prednisone) 30 mg DAILY PO Last administered on 07/29/18at 10:06; Start 07/29/18 at 09:00; Stop 07/31/18 at 08:58; Status DC Ceftriaxone Sodium 1 gm/ Dextrose 50 ml @ 100 mls/hr Q24H IV ; Start 07/29/18 at 09:00; Status UNV Ceftriaxone Sodium (Rocephin) 1 gm Q24H IVP Last administered on 07/29/18at 10:06 ; Start 07/29/18 at 09:00; Stop 07/30/18 at 10:07; Status DC Albuterol/ Ipratropium (Duoneb) 3 ml Q4HRS NEB Last administered on 08/02/18at 08 :40; Start 07/29/18 at 12:00; Stop 08/02/18 at 09:31; Status DC Budesonide (Pulmicort) 0.5 mg RTBID NEB ; Start 07/29/18 at 20:00; Status UNV Famotidine (Pepcid) 20 mg QHS PO Last administered on 07/29/18at 21:44; Start 07/29/18 at 21:00; Stop 07/30/18 at 10:10; Status DC Enoxaparin Sodium (Lovenox 40mg Syringe) 40 mg Q12H SQ Last administered on at 23:56; Start 07/29/18 at 12:30; Stop 08/09/18 at 09:13; Status DC Acetaminophen (Tylenol) 650 mg PRN Q6HRS PRN PO FEVER; Start 07/29/18 at 11:45 Ondansetron HCl (Zofran) 4 mg PRN Q6HRS PRN IV NAUSEA/VOMITING Last administered on 07/29/18at 15:23; Start 07/29/18 at 11:45 Morphine Sulfate (Morphine Sulfate) 2 mg PRN Q2HR PRN IV MODERATE TO SEVERE PAIN; Start 07/29/18 at 11:45 Tramadol HCl (Ultram) 50 mg PRN Q6HRS PRN PO MODERATE PAIN; Start 07/29/18 at 11 :45 Docusate Sodium (Colace) 100 mg PRN DAILY PRN PO CONSTIPATION; Start 07/29/18 at 11:45 Haloperidol Lactate (Haldol Inj) 2 mg PRN Q2HR PRN IVP AGITATION 2ND CHOICE Last administered on 08/01/18at 15:48; Start 07/30/18 at 01:30; Stop 08/07/18 at 21 :38; Status DC Lorazepam (Ativan) 0.25 mg PRN Q1HR PRN IV ANXIETY/AGITATION 1ST CHOICE Last administered on 08/07/18at 06:07; Start 07/30/18 at 01:30 Propofol 100 ml @ As Directed STK-MED ONCE IV ; Start 07/30/18 at 04:12; Stop at 04:13; Status DC Etomidate (Amidate) 20 mg STK-MED ONCE IV ; Start 07/30/18 at 04:18; Stop at 04:19; Status DC Propofol 100 ml @ 0 mls/hr CONT PRN IV PER PROTOCOL Last administered on at 03:25; Start 07/30/18 at 04:30; Stop 08/10/18 at 15:16; Status DC Chlorhexidine Gluconate (Peridex) 15 ml BID MM Last administered on 08/09/18at 21:01; Start 07/30/18 at 09:00; Stop 08/10/18 at 15:16; Status DC Midazolam HCl 100 ml @ 0 mls/hr CONT PRN IV PER PROTOCOL Last administered on at 01:30; Start 07/30/18 at 04:30; Stop 08/10/18 at 15:16; Status DC Piperacillin Sod/ Tazobactam Sod (Zosyn Per Pharmacy) 1 each PRN DAILY PRN MC SEE COMMENTS; Start 07/30/18 at 10:00; Status Cancel Vancomycin HCl (Vanco Per Pharmacy) 1 each PRN DAILY PRN MC SEE COMMENTS Last administered on 08/03/18at 08:31; Start 07/30/18 at 10:00; Stop 08/03/18 at 12:30; Status DC Methylprednisolone Sodium Succinate (SOLU-Medrol 125MG VIAL) 60 mg Q8HRS IV Last administered on 08/03/18at 05:49; Start 07/30/18 at 14:00; Stop 08/03/18 at 06: 32; Status DC Pantoprazole Sodium (PROTONIX VIAL for IV PUSH) 40 mg DAILYAC IVP Last administered on 08/11/18at 08:00; Start 07/30/18 at 10:30 Piperacillin Sod/ Tazobactam Sod 3.375 gm/Sodium Chloride 50 ml @ 100 mls/hr Q6HRS IV Last administered on 08/06/18at 05:35; Start 07/30/18 at 12:00; Stop 11/11 at 07:38; Status DC Vancomycin HCl 2 gm/Sodium Chloride 500 ml @ 250 mls/hr 1X ONCE IV Last administered on 07/30/18at 10:31; Start 07/30/18 at 10:30; Stop 07/30/18 at 12:29; Status DC Vancomycin HCl 1.5 gm/Sodium Chloride 500 ml @ 250 mls/hr Q8H IV Last administered on 07/31/18at 14:10; Start 07/30/18 at 18:30; Stop 07/31/18 at 17:00; Status DC Vancomycin HCl (Vancomycin Trough Level) 1 each 1X ONCE MC Last administered on 07/31/18at 13:30; Start 07/31/18 at 13:30; Stop 07/31/18 at 13:31; Status DC Insulin Human Lispro (HumaLOG) 0-7 UNITS TIDWMEALS SQ ; Start 07/31/18 at 08:00; Stop 07/31/18 at 09:04; Status DC Dextrose (Dextrose 50%-Water Syringe) 12.5 gm PRN Q15MIN PRN IV SEE COMMENTS; Start 07/30/18 at 17:45 Insulin Human Lispro (HumaLOG) 0-7 UNITS Q6HRS SQ Last administered on at 00:14; Start 07/31/18 at 12:00 Vancomycin HCl 1.75 gm/Sodium Chloride 500 ml @ 250 mls/hr Q8H IV Last administered on 08/01/18at 13:48; Start 07/31/18 at 22:00; Stop 08/01/18 at 22:01; Status DC Vancomycin HCl (Vancomycin Trough Level) 1 each 1X ONCE MC Last administered on 08/01/18at 21:01; Start 08/01/18 at 21:30; Stop 08/01/18 at 21:31; Status DC Erythromycin Ethylsuccinate (E.e.s. 200) 200 mg 1X ONCE PEG Last administered on 08/01/18at 12:19; Start 08/01/18 at 13:00; Stop 08/01/18 at 13:01; Status DC Vancomycin HCl 2 gm/Sodium Chloride 500 ml @ 250 mls/hr Q8H IV Last administered on 08/02/18at 22:56; Start 08/01/18 at 22:00; Stop 08/02/18 at 22:59; Status DC Vancomycin HCl (Vancomycin Trough Level) 1 each 1X ONCE MC Last administered on 08/02/18at 21:30; Start 08/02/18 at 21:30; Stop 08/02/18 at 21:31; Status DC Fentanyl Citrate 30 ml @ 0 mls/hr CONT PRN IV PER PROTOCOL Last administered on 08/10/18at 06:05; Start 08/02/18 at 07:00; Stop 08/10/18 at 15:16; Status DC Enalaprilat (Vasotec Inj) 1.25 mg PRN Q6HRS PRN IVP HYPERTENSION, SEE COMMENTS ; Start 08/02/18 at 09:15 Amlodipine Besylate (Norvasc) 2.5 mg DAILY PO Last administered on 08/09/18at 08 :09; Start 08/02/18 at 10:00 Albuterol/ Ipratropium (Duoneb) 3 ml RTQID NEB Last administered on 08/11/18at 12:14; Start 08/02/18 at 12:00 Vancomycin HCl 1.75 gm/Sodium Chloride 500 ml @ 250 mls/hr Q6H IV Last administered on 08/03/18at 05:53; Start 08/03/18 at 05:00; Stop 08/03/18 at 08:23; Status DC Vancomycin HCl (Vancomycin Trough Level) 1 each 1X ONCE MC ; Start 08/03/18 at 22:30; Stop 08/03/18 at 22:31; Status Cancel Methylprednisolone Sodium Succinate (SOLU-Medrol 125MG VIAL) 40 mg Q8HRS IV Last administered on 08/09/18at 06:29; Start 08/03/18 at 14:00; Stop 08/09/18 at 09:09; Status DC Vancomycin HCl 2 gm/Sodium Chloride 500 ml @ 250 mls/hr Q8H IV ; Start 08/03/18 at 14:00; Stop 08/03/18 at 14:00; Status DC Azithromycin 500 mg/Sodium Chloride 250 ml @ 250 mls/hr Q24H IV Last administered on 08/05/18at 13:08; Start 08/03/18 at 13:00; Stop 08/06/18 at 07:38 ; Status DC Haloperidol Lactate (Haldol Inj) 5 mg PRN Q6HRS PRN IVP AGITATION 2ND CHOICE Last administered on 08/08/18at 16:04; Start 08/07/18 at 21:45 Midazolam HCl (Versed) 2 mg PRN Q1HR PRN IV SEDATION Last administered on at 11:28; Start 08/07/18 at 21:45; Stop 08/10/18 at 15:16; Status DC Methylprednisolone Sodium Succinate (SOLU-Medrol 40MG VIAL) 40 mg Q12HR IV Last administered on 08/11/18at 08:01; Start 08/09/18 at 21:00; Stop 08/11/18 at 10:11; Status DC Enoxaparin Sodium (Lovenox 40mg Syringe) 40 mg Q24H SQ Last administered on at 22:21; Start 08/09/18 at 21:00 Furosemide (Lasix) 20 mg 1X ONCE IVP Last administered on 08/10/18at 10:45; Start 08/10/18 at 11:00; Stop 08/10/18 at 11:01; Status DC Methylprednisolone Sodium Succinate (SOLU-Medrol 40MG VIAL) 40 mg DAILY IV ; Start 08/12/18 at 09:00 Nystatin (Nystatin Oral Susp) 5 ml [id number] ; Start 08/11/18 at 17:00 Active Scripts Active Motrin Ib (Ibuprofen) 200 Mg Tablet 800 Mg PO Q8H PRN Tessalon Perle (Benzonatate) 100 Mg Capsule 100 Mg PO TID PRN Prednisone 20 Mg Tablet 40 Mg PO DAILY START MEDICATIONS ON 08/07/2016 Medrol (Methylprednisolone) 4 Mg Tab.ds.pk 1 Pkg PO UD Levaquin (Levofloxacin) 750 Mg Tablet 750 Mg PO DAILY06 Advair 250-50 Diskus (Fluticasone/Salmeterol) 1 Puff Puff 1 Puff INH BID Reported Topiramate 25 Mg Tablet 1 Tab PO HS Phentermine Hcl 37.5 Mg Capsule 1 Cap PO [id number] Metformin Hcl 500 Mg Tablet 500 Mg PO BIDWMEALS Escitalopram Oxalate 20 Mg Tablet 1 Tab PO DAILY Xanax (Alprazolam) 0.25 Mg Tablet 0.25 Mg PO PRN Q6HRS PRN Vitals/I & O Vital Sign - Last 24 Hours 08/10/18 08/10/18 08/10/18 08/10/18 15:00 15:41 16:00 17:00 Pulse 91 90 Resp 28 37 B/P (MAP) 124/68 (86) 132/66 (88) Pulse Ox 94 92 92 O2 Delivery Nasal Cannula Nasal Cannula Nasal Cannula Nasal Cannula O2 Flow Rate 6.0 6.0 6.0 6.0 08/10/18 08/10/18 08/10/18 08/10/18 18:00 19:00 19:53 19:54 Pulse 75 80 Resp 26 20 B/P (MAP) 136/67 (90) 161/77 (105) Pulse Ox 95 97 97 97 O2 Delivery Nasal Cannula Nasal Cannula Nasal Cannula Nasal Cannula O2 Flow Rate 6.0 6.0 3.0 3.0 08/10/18 08/10/18 08/10/18 08/10/18 20:00 20:15 21:00 22:00 Temp 97.8 97.8 Pulse 80 96 80 Resp 20 20 20 B/P (MAP) 112/59 (76) 120/64 (82) 108/59 (75) Pulse Ox 97 96 96 O2 Delivery Nasal Cannula Nasal Cannula Nasal Cannula BiPAP/CPAP O2 Flow Rate 4.0 4.0 4.0 08/10/18 08/11/18 08/11/18 08/11/18 23:00 00:00 00:00 01:00 Temp 97.8 97.8 Pulse 78 78 76 Resp 26 20 18 B/P (MAP) 129/74 (92) 125/70 (88) 111/75 (87) Pulse Ox 96 95 96 O2 Delivery BiPAP/CPAP Nasal Cannula BiPAP/CPAP BiPAP/CPAP O2 Flow Rate 4.0 08/11/18 08/11/18 08/11/18 08/11/18 02:00 03:00 04:00 04:08 Pulse 72 72 71 Resp 20 20 26 B/P (MAP) 110/48 (68) 113/55 (74) 115/58 (77) Pulse Ox 94 94 91 O2 Delivery BiPAP/CPAP BiPAP/CPAP BiPAP/CPAP Nasal Cannula O2 Flow Rate 4.0 08/11/18 08/11/18 08/11/18 08/11/18 05:00 06:00 07:00 08:00 Temp 97.8 98.6 97.8 98.6 Pulse 82 87 84 93 Resp 26 26 20 31 B/P (MAP) 114/57 (76) 114/69 (84) 115/62 (79) 139/80 (99) Pulse Ox 90 96 90 99 O2 Delivery BiPAP/CPAP BiPAP/CPAP Nasal Cannula Nasal Cannula O2 Flow Rate 4.0 4.0 08/11/18 08/11/18 08/11/18 08/11/18 08:00 08:18 09:00 10:00 Pulse 105 92 Resp 32 33 B/P (MAP) 134/69 (90) 139/73 (95) Pulse Ox 94 95 O2 Delivery Nasal Cannula Nasal Cannula Nasal Cannula Nasal Cannula O2 Flow Rate 4.0 3.0 4.0 4.0 08/11/18 08/11/18 08/11/18 08/11/18 11:00 12:00 12:00 12:14 Temp 98.7 98.7 Pulse 117 98 Resp 33 30 B/P (MAP) 127/90 (102) 145/84 (104) Pulse Ox 96 96 O2 Delivery Nasal Cannula Nasal Cannula Nasal Cannula Nasal Cannula O2 Flow Rate 4.0 4.0 4.0 4.0 Intake and Output 08/10/18 08/10/18 08/11/18 15:00 23:00 07:00 Intake Total 220 ml Output Total 1075 ml 300 ml 310 ml Balance -855 ml -300 ml -310 ml JAIRON DUENAS III DO Aug 11, 2018 14:39
[2018-08-11] MEDS: NYSTATIN 100,000 UNITS/ML 5 ML ORAL.SUSP. SWSW SCH ×2 (18:20→21:26)
[2018-08-11] MEDS: ENOXAPARIN 40 MG/0.4 ML SYRINGE. SQ SCH (21:28)
[2018-08-12] MEDS: PROMETH/CODEINE 6.25/10MG 5 ML SYRUP. PO PRN (01:54)
[2018-08-12 03:05] VITALS: BP 112/82
[2018-08-12 07:00] VITALS: BP 122/64
[2018-08-12] MEDS ORDERED: PANTOPRAZOLE 40 MG TABLET.DR. PO SCH (07:30)
[2018-08-12] MEDS: INSULIN LISPRO 300 UNITS/3 ML INSULN.PEN. SQ SCH ×2 (08:00→11:30)
[2018-08-12] MEDS: IPRATRPIUM/ALBUTEROL 0.5/2.5MG 3 ML NEBU. NEB SCH ×3 (08:54→16:44)
[2018-08-12] MEDS: BUDESONIDE 0.5 MG/2 ML NEBU. NEB SCH (08:54)
[2018-08-12] MEDS ORDERED: methylPREDNISolone SOD SUCC PF 40 MG/ML VIAL. IV SCH (09:00)
[2018-08-12] MEDS: CITALOPRAM 20 MG TABLET. PO SCH (09:09)
[2018-08-12] MEDS: amLODIPine BESYLATE 2.5 MG TABLET PO SCH (09:09)
[2018-08-12] MEDS: NYSTATIN 100,000 UNITS/ML 5 ML ORAL.SUSP. SWSW SCH ×2 (09:10→13:00)
[2018-08-12] MEDS: HYDROcodone/APAP 5/325MG 1 TAB TABLET PO PRN (09:19)
--- NOTE | 2018-08-12 10:32 | PDOC ---
PROGRESS NOTES Chief Complaint Chief Complaint Severe asthma Acute hypoxic respiratory failure with extubation 08/08 Sepsis Pneumonia EZ lobe Acute asthma exacerbation Obesity Possible ileus Transaminitis, NOS oral nutrition 02 titration to keep sat 94% change to PO steroids BD ICS discussed w rn, doing well dc home in am History of Present Illness History of Present Illness Pt seen and examined in ICU Dw RN Pt now extubated and talking , but slow. Up in chair working with PT/OT Vitals Vitals Vital Signs Date Time Temp Pulse Resp B/P (MAP) Pulse Ox O2 Delivery O2 Flow Rate FiO2 08/12/18 09:19 20 94 Nasal Cannula 4.0 08/12/18 09:09 105 122/64 08/12/18 07:00 97.4 97.4 Physical Exam Physical Exam GENERAL: Propped up in bed, alert, calm HEENT: Pupils are equal and reactive, ETT and OGT LUNGS: Clear anteriorly HEART: S1, S2 ABDOMEN: Obese, soft, nontender, positive bowel sounds. : [place] EXTREMITIES: No clubbing, cyanosis or gross edema. SKIN: Without signs of rash. NEUROLOGIC: Alert, nods to simple questions appropriately and follows commands RI (07/30) clean General: Alert, Oriented X3, No acute distress, Other Heart: Regular rate, Normal S1, Normal S2 Lungs: Crackles Abdomen: Normal bowel sounds, Soft Extremities: No cyanosis, No edema, Normal pulses Skin: No rashes, No breakdown, No significant lesion Labs LABS Laboratory Tests Test 08/11/18 12:35 08/11/18 17:40 08/11/18 20:18 08/11/18 22:46 Glucose (Fingerstick) 131 mg/dL (70-99) 120 mg/dL (70-99) 113 mg/dL (70-99) 97 mg/dL (70-99) Test 08/12/18 07:43 Glucose (Fingerstick) 105 mg/dL (70-99) Assessment and Plan Assessmemt and Plan Problems Medical Problems: (1) Pneumonia Status: Acute Comment Review of Relevant I have reviewed the following items [place] (where applicable) has been applied. Labs Laboratory Tests Test 08/10/18 18:26 08/11/18 00:20 08/11/18 05:20 08/11/18 12:35 Glucose (Fingerstick) 92 mg/dL (70-99) 102 mg/dL (70-99) 131 mg/dL (70-99) White Blood Count 13.7 x10^3/uL (4.0-11.0) Red Blood Count 4.71 x10^6/uL (3.50-5.40) Hemoglobin 12.8 g/dL (12.0-15.5) Hematocrit 38.4 % (36.0-47.0) Mean Corpuscular Volume 82 fL (79-100) Mean Corpuscular Hemoglobin 27 pg (25-35) Mean Corpuscular Hemoglobin Concent 33 g/dL (31-37) Red Cell Distribution Width 14.3 % (11.5-14.5) Platelet Count 308 x10^3/uL (140-400) Neutrophils (%) (Auto) 77 % (31-73) Lymphocytes (%) (Auto) 18 % (24-48) Monocytes (%) (Auto) 4 % (0-9) Eosinophils (%) (Auto) 0 % (0-3) Basophils (%) (Auto) 0 % (0-3) Neutrophils # (Auto) 10.5 x10^3uL (1.8-7.7) Lymphocytes # (Auto) 2.5 x10^3/uL (1.0-4.8) Monocytes # (Auto) 0.6 x10^3/uL (0.0-1.1) Eosinophils # (Auto) 0.0 x10^3/uL (0.0-0.7) Basophils # (Auto) 0.1 x10^3/uL (0.0-0.2) Sodium Level 139 mmol/L (136-145) Potassium Level 4.0 mmol/L (3.5-5.1) Chloride Level 101 mmol/L (98-107) Carbon Dioxide Level 30 mmol/L (21-32) Anion Gap 8 (6-14) Blood Urea Nitrogen 23 mg/dL (7-20) Creatinine 0.6 mg/dL (0.6-1.0) Estimated GFR (Cockcroft-Gault) 117.4 Glucose Level 130 mg/dL (70-99) Calcium Level 9.2 mg/dL (8.5-10.1) Test 08/11/18 17:40 08/11/18 20:18 08/11/18 22:46 08/12/18 07:43 Glucose (Fingerstick) 120 mg/dL (70-99) 113 mg/dL (70-99) 97 mg/dL (70-99) 105 mg/dL (70-99) Laboratory Tests Test 08/11/18 12:35 08/11/18 17:40 08/11/18 20:18 08/11/18 22:46 Glucose (Fingerstick) 131 mg/dL (70-99) 120 mg/dL (70-99) 113 mg/dL (70-99) 97 mg/dL (70-99) Test 08/12/18 07:43 Glucose (Fingerstick) 105 mg/dL (70-99) Microbiology 07/28/18 Blood Culture - Final, Complete NO GROWTH AFTER 5 DAYS 08/09/18 - Final, Complete 08/09/18 - Final, Complete 08/09/18 - Final, Complete 08/09/18 Gram Stain Evaluation - Final, Complete 08/09/18 Sputum Culture - Final, Complete 08/09/18 Sputum Result 1 - Final, Complete Medications Current Medications Prednisone (Prednisone) 50 mg 1X ONCE PO Last administered on 07/28/18at 06:47; Start 07/28/18 at 07:00; Stop 07/28/18 at 07:01; Status DC Albuterol/ Ipratropium (Duoneb) 3 ml 1X ONCE NEB Last administered on at 06:37; Start 07/28/18 at 07:00; Stop 07/28/18 at 07:01; Status DC Sodium Chloride 1,000 ml @ 1,000 mls/hr 1X ONCE IV Last administered on at 07:03; Start 07/28/18 at 07:00; Stop 07/28/18 at 07:59; Status DC Albuterol Sulfate (Ventolin Neb Soln) 10 mg 1X ONCE CONT NEB Last administered on 07/28/18at 07:25; Start 07/28/18 at 07:00; Stop 07/28/18 at 07:02; Status DC Magnesium Sulfate 50 ml @ 25 mls/hr 1X ONCE IV Last administered on 07/28/18at 07:41; Start 07/28/18 at 07:15; Stop 07/28/18 at 09:14; Status DC Ceftriaxone Sodium 50 ml @ 100 mls/hr 1X ONCE IV Last administered on at 08:52; Start 07/28/18 at 08:15; Stop 07/28/18 at 08:44; Status DC Azithromycin 250 ml @ 250 mls/hr 1X ONCE IV Last administered on 07/28/18at 09: 20; Start 07/28/18 at 08:15; Stop 07/28/18 at 09:14; Status DC Acetaminophen/ Hydrocodone Bitart (Lortab 5/325) 2 tab 1X ONCE PO Last administered on 07/28/18at 08:49; Start 07/28/18 at 08:45; Stop 07/28/18 at 08:46; Status DC Ondansetron HCl (Zofran) 4 mg PRN Q8HRS PRN IV NAUSEA/VOMITING Last administered on 07/28/18at 22:40; Start 07/28/18 at 08:45; Stop 07/29/18 at 08:44; Status DC Acetaminophen (Tylenol) 650 mg PRN Q4HRS PRN PO FEVER Last administered on at 22:40; Start 07/28/18 at 08:45; Stop 07/29/18 at 08:44; Status DC Albuterol/ Ipratropium (Duoneb) 3 ml RTQID NEB Last administered on 07/29/18at 07 :29; Start 07/28/18 at 12:00; Stop 07/29/18 at 10:30; Status DC Acetaminophen/ Hydrocodone Bitart (Lortab 5/325) 2 tab Q6H PRN PO SEVERE PAIN Last administered on 08/12/18at 09:19; Start 07/28/18 at 08:45 Prednisone (Prednisone) 60 mg DAILY PO ; Start 07/29/18 at 09:00; Stop 07/29/18 at 09:00; Status DC Budesonide (Pulmicort) 0.5 mg RTBID NEB Last administered on 08/12/18at 08:54; Start 07/28/18 at 20:00 Budesonide (Pulmicort) 0.5 mg 1X ONCE NEB Last administered on 07/28/18at 11:06 ; Start 07/28/18 at 09:30; Stop 07/28/18 at 09:31; Status DC Albuterol Sulfate (Ventolin Neb Soln) 2.5 mg PRN Q4HRS PRN NEB SHORTNESS OF BREATH; Start 07/28/18 at 09:30 Azithromycin (Zithromax) 250 mg DAILY PO Last administered on 08/01/18at 08:54; Start 07/28/18 at 10:00; Stop 08/01/18 at 09:01; Status DC Alprazolam (Xanax) 0.25 mg PRN Q6HRS PRN PO ANXIETY / AGITATION Last administered on 08/08/18at 08:24; Start 07/28/18 at 12:45 Ibuprofen (Motrin) 800 mg PRN Q8HRS PRN PO PAIN MILD/INFLAMMATION; Start at 12:45 Benzonatate (Tessalon Perle) 100 mg PRN TID PRN PO COUGH 2ND CHOICE Last administered on 08/12/18at 09:18; Start 07/28/18 at 14:00 Citalopram Hydrobromide (CeleXA) 40 mg DAILY PO Last administered on 08/12/18at 09:09; Start 07/28/18 at 13:00 Metformin HCl (Glucophage) 500 mg BIDWMEALS PO Last administered on 07/29/18at 10 :07; Start 07/28/18 at 17:00; Stop 07/31/18 at 08:58; Status DC Promethazine HCl/ Codeine (Phenergan With Codeine Oral Syrup) 5 ml PRN Q6HRS PRN PO COUGH 1ST CHOICE Last administered on 08/12/18at 01:54; Start 07/28/18 at 15:30 Guaifenesin (MUCINEX ER with DM) 1 tab BID PO Last administered on 07/30/18at 20: 57; Start 07/28/18 at 21:00; Stop 07/31/18 at 09:47; Status DC Lactobacillus Rhamnosus (Culturelle) 1 cap BID PO Last administered on at 21:44; Start 07/28/18 at 21:00; Stop 07/30/18 at 09:48; Status DC Prednisone (Prednisone) 30 mg DAILY PO Last administered on 07/29/18at 10:06; Start 07/29/18 at 09:00; Stop 07/31/18 at 08:58; Status DC Ceftriaxone Sodium 1 gm/ Dextrose 50 ml @ 100 mls/hr Q24H IV ; Start 07/29/18 at 09:00; Status UNV Ceftriaxone Sodium (Rocephin) 1 gm Q24H IVP Last administered on 07/29/18at 10:06 ; Start 07/29/18 at 09:00; Stop 07/30/18 at 10:07; Status DC Albuterol/ Ipratropium (Duoneb) 3 ml Q4HRS NEB Last administered on 08/02/18at 08 :40; Start 07/29/18 at 12:00; Stop 08/02/18 at 09:31; Status DC Budesonide (Pulmicort) 0.5 mg RTBID NEB ; Start 07/29/18 at 20:00; Status UNV Famotidine (Pepcid) 20 mg QHS PO Last administered on 07/29/18at 21:44; Start 07/29/18 at 21:00; Stop 07/30/18 at 10:10; Status DC Enoxaparin Sodium (Lovenox 40mg Syringe) 40 mg Q12H SQ Last administered on at 23:56; Start 07/29/18 at 12:30; Stop 08/09/18 at 09:13; Status DC Acetaminophen (Tylenol) 650 mg PRN Q6HRS PRN PO FEVER; Start 07/29/18 at 11:45 Ondansetron HCl (Zofran) 4 mg PRN Q6HRS PRN IV NAUSEA/VOMITING Last administered on 07/29/18at 15:23; Start 07/29/18 at 11:45 Morphine Sulfate (Morphine Sulfate) 2 mg PRN Q2HR PRN IV MODERATE TO SEVERE PAIN; Start 07/29/18 at 11:45; Stop 08/11/18 at 15:42; Status DC Tramadol HCl (Ultram) 50 mg PRN Q6HRS PRN PO MODERATE PAIN; Start 07/29/18 at 11 :45 Docusate Sodium (Colace) 100 mg PRN DAILY PRN PO CONSTIPATION; Start 07/29/18 at 11:45 Haloperidol Lactate (Haldol Inj) 2 mg PRN Q2HR PRN IVP AGITATION 2ND CHOICE Last administered on 08/01/18at 15:48; Start 07/30/18 at 01:30; Stop 08/07/18 at 21 :38; Status DC Lorazepam (Ativan) 0.25 mg PRN Q1HR PRN IV ANXIETY/AGITATION 1ST CHOICE Last administered on 08/07/18at 06:07; Start 07/30/18 at 01:30; Stop 08/11/18 at 15:42 ; Status DC Propofol 100 ml @ As Directed STK-MED ONCE IV ; Start 07/30/18 at 04:12; Stop at 04:13; Status DC Etomidate (Amidate) 20 mg STK-MED ONCE IV ; Start 07/30/18 at 04:18; Stop at 04:19; Status DC Propofol 100 ml @ 0 mls/hr CONT PRN IV PER PROTOCOL Last administered on at 03:25; Start 07/30/18 at 04:30; Stop 08/10/18 at 15:16; Status DC Chlorhexidine Gluconate (Peridex) 15 ml BID MM Last administered on 08/09/18at 21:01; Start 07/30/18 at 09:00; Stop 08/10/18 at 15:16; Status DC Midazolam HCl 100 ml @ 0 mls/hr CONT PRN IV PER PROTOCOL Last administered on at 01:30; Start 07/30/18 at 04:30; Stop 08/10/18 at 15:16; Status DC Piperacillin Sod/ Tazobactam Sod (Zosyn Per Pharmacy) 1 each PRN DAILY PRN MC SEE COMMENTS; Start 07/30/18 at 10:00; Status Cancel Vancomycin HCl (Vanco Per Pharmacy) 1 each PRN DAILY PRN MC SEE COMMENTS Last administered on 08/03/18at 08:31; Start 07/30/18 at 10:00; Stop 08/03/18 at 12:30; Status DC Methylprednisolone Sodium Succinate (SOLU-Medrol 125MG VIAL) 60 mg Q8HRS IV Last administered on 08/03/18at 05:49; Start 07/30/18 at 14:00; Stop 08/03/18 at 06: 32; Status DC Pantoprazole Sodium (PROTONIX VIAL for IV PUSH) 40 mg DAILYAC IVP Last administered on 08/11/18at 08:00; Start 07/30/18 at 10:30; Stop 08/11/18 at 15:42 ; Status DC Piperacillin Sod/ Tazobactam Sod 3.375 gm/Sodium Chloride 50 ml @ 100 mls/hr Q6HRS IV Last administered on 08/06/18at 05:35; Start 07/30/18 at 12:00; Stop 11/11 at 07:38; Status DC Vancomycin HCl 2 gm/Sodium Chloride 500 ml @ 250 mls/hr 1X ONCE IV Last administered on 07/30/18at 10:31; Start 07/30/18 at 10:30; Stop 07/30/18 at 12:29; Status DC Vancomycin HCl 1.5 gm/Sodium Chloride 500 ml @ 250 mls/hr Q8H IV Last administered on 07/31/18at 14:10; Start 07/30/18 at 18:30; Stop 07/31/18 at 17:00; Status DC Vancomycin HCl (Vancomycin Trough Level) 1 each 1X ONCE MC Last administered on 07/31/18at 13:30; Start 07/31/18 at 13:30; Stop 07/31/18 at 13:31; Status DC Insulin Human Lispro (HumaLOG) 0-7 UNITS TIDWMEALS SQ ; Start 07/31/18 at 08:00; Stop 07/31/18 at 09:04; Status DC Dextrose (Dextrose 50%-Water Syringe) 12.5 gm PRN Q15MIN PRN IV SEE COMMENTS; Start 07/30/18 at 17:45 Insulin Human Lispro (HumaLOG) 0-7 UNITS Q6HRS SQ Last administered on at 00:14; Start 07/31/18 at 12:00; Stop 08/11/18 at 22:46; Status DC Vancomycin HCl 1.75 gm/Sodium Chloride 500 ml @ 250 mls/hr Q8H IV Last administered on 08/01/18at 13:48; Start 07/31/18 at 22:00; Stop 08/01/18 at 22:01; Status DC Vancomycin HCl (Vancomycin Trough Level) 1 each 1X ONCE MC Last administered on 08/01/18at 21:01; Start 08/01/18 at 21:30; Stop 08/01/18 at 21:31; Status DC Erythromycin Ethylsuccinate (E.e.s. 200) 200 mg 1X ONCE PEG Last administered on 08/01/18at 12:19; Start 08/01/18 at 13:00; Stop 08/01/18 at 13:01; Status DC Vancomycin HCl 2 gm/Sodium Chloride 500 ml @ 250 mls/hr Q8H IV Last administered on 08/02/18at 22:56; Start 08/01/18 at 22:00; Stop 08/02/18 at 22:59; Status DC Vancomycin HCl (Vancomycin Trough Level) 1 each 1X ONCE MC Last administered on 08/02/18at 21:30; Start 08/02/18 at 21:30; Stop 08/02/18 at 21:31; Status DC Fentanyl Citrate 30 ml @ 0 mls/hr CONT PRN IV PER PROTOCOL Last administered on 08/10/18at 06:05; Start 08/02/18 at 07:00; Stop 08/10/18 at 15:16; Status DC Enalaprilat (Vasotec Inj) 1.25 mg PRN Q6HRS PRN IVP HYPERTENSION, SEE COMMENTS ; Start 08/02/18 at 09:15 Amlodipine Besylate (Norvasc) 2.5 mg DAILY PO Last administered on 08/12/18at 09 :09; Start 08/02/18 at 10:00 Albuterol/ Ipratropium (Duoneb) 3 ml RTQID NEB Last administered on 08/12/18at 08:54; Start 08/02/18 at 12:00 Vancomycin HCl 1.75 gm/Sodium Chloride 500 ml @ 250 mls/hr Q6H IV Last administered on 08/03/18at 05:53; Start 08/03/18 at 05:00; Stop 08/03/18 at 08:23; Status DC Vancomycin HCl (Vancomycin Trough Level) 1 each 1X ONCE MC ; Start 08/03/18 at 22:30; Stop 08/03/18 at 22:31; Status Cancel Methylprednisolone Sodium Succinate (SOLU-Medrol 125MG VIAL) 40 mg Q8HRS IV Last administered on 08/09/18at 06:29; Start 08/03/18 at 14:00; Stop 08/09/18 at 09:09; Status DC Vancomycin HCl 2 gm/Sodium Chloride 500 ml @ 250 mls/hr Q8H IV ; Start 08/03/18 at 14:00; Stop 08/03/18 at 14:00; Status DC Azithromycin 500 mg/Sodium Chloride 250 ml @ 250 mls/hr Q24H IV Last administered on 08/05/18at 13:08; Start 08/03/18 at 13:00; Stop 08/06/18 at 07:38 ; Status DC Haloperidol Lactate (Haldol Inj) 5 mg PRN Q6HRS PRN IVP AGITATION 2ND CHOICE Last administered on 08/08/18at 16:04; Start 08/07/18 at 21:45; Stop 08/11/18 at 15:42; Status DC Midazolam HCl (Versed) 2 mg PRN Q1HR PRN IV SEDATION Last administered on at 11:28; Start 08/07/18 at 21:45; Stop 08/10/18 at 15:16; Status DC Methylprednisolone Sodium Succinate (SOLU-Medrol 40MG VIAL) 40 mg Q12HR IV Last administered on 08/11/18at 08:01; Start 08/09/18 at 21:00; Stop 08/11/18 at 10:11; Status DC Enoxaparin Sodium (Lovenox 40mg Syringe) 40 mg Q24H SQ Last administered on at 21:28; Start 08/09/18 at 21:00 Furosemide (Lasix) 20 mg 1X ONCE IVP Last administered on 08/10/18at 10:45; Start 08/10/18 at 11:00; Stop 08/10/18 at 11:01; Status DC Methylprednisolone Sodium Succinate (SOLU-Medrol 40MG VIAL) 40 mg DAILY IV Last administered on 08/12/18at 09:27; Start 08/12/18 at 09:00 Nystatin (Nystatin Oral Susp) 5 ml [id number] Last administered on 08/12/18at 09:10; Start 08/11/18 at 17:00 Pantoprazole Sodium (Protonix) 40 mg DAILYAC PO Last administered on 08/12/18at 09:09; Start 08/12/18 at 07:30 Insulin Human Lispro (HumaLOG) 0-7 UNITS QIDACHS SQ ; Start 08/11/18 at 21:00 Active Scripts Active Motrin Ib (Ibuprofen) 200 Mg Tablet 800 Mg PO Q8H PRN Tessalon Perle (Benzonatate) 100 Mg Capsule 100 Mg PO TID PRN Prednisone 20 Mg Tablet 40 Mg PO DAILY START MEDICATIONS ON 08/07/2016 Medrol (Methylprednisolone) 4 Mg Tab.ds.pk 1 Pkg PO UD Levaquin (Levofloxacin) 750 Mg Tablet 750 Mg PO DAILY06 Advair 250-50 Diskus (Fluticasone/Salmeterol) 1 Puff Puff 1 Puff INH BID Reported Topiramate 25 Mg Tablet 1 Tab PO HS Phentermine Hcl 37.5 Mg Capsule 1 Cap PO DAILYWBKFT Metformin Hcl 500 Mg Tablet 500 Mg PO BIDWMEALS Escitalopram Oxalate 20 Mg Tablet 1 Tab PO DAILY Xanax (Alprazolam) 0.25 Mg Tablet 0.25 Mg PO PRN Q6HRS PRN Vitals/I & O Vital Sign - Last 24 Hours 08/11/18 08/11/18 08/11/18 08/11/18 11:00 12:00 12:00 12:14 Temp 98.7 98.7 Pulse 117 98 Resp 33 30 B/P (MAP) 127/90 (102) 145/84 (104) Pulse Ox 96 96 O2 Delivery Nasal Cannula Nasal Cannula Nasal Cannula Nasal Cannula O2 Flow Rate 4.0 4.0 4.0 4.0 08/11/18 08/11/18 08/11/18 08/11/18 15:00 15:30 16:00 17:00 Temp 98.7 98.7 98.7 98.7 Pulse 95 90 90 Resp 33 16 B/P (MAP) 130/68 (88) 136/72 (93) 126/62 (83) Pulse Ox 96 96 96 O2 Delivery Nasal Cannula Nasal Cannula Room Air Room Air O2 Flow Rate 4.0 4.0 08/11/18 08/11/18 08/11/18 08/11/18 19:00 19:57 19:58 20:00 Temp 98.2 98.2 Pulse 99 Resp 20 B/P (MAP) 142/104 (117) Pulse Ox 98 96 96 O2 Delivery Nasal Cannula Nasal Cannula Nasal Cannula Nasal Cannula O2 Flow Rate 4.0 4.0 4.0 08/11/18 08/12/18 08/12/18 08/12/18 23:03 03:05 07:00 08:54 Temp 98.3 97.4 97.4 98.3 97.4 97.4 Pulse 108 91 105 Resp 20 20 18 B/P (MAP) 134/98 (110) 112/82 (92) 122/64 (83) Pulse Ox 94 99 96 94 O2 Delivery Nasal Cannula Nasal Cannula Nasal Cannula Nasal Cannula O2 Flow Rate 4.0 08/12/18 08/12/18 08/12/18 08:58 09:09 09:19 Pulse 105 Resp 20 B/P (MAP) 122/64 Pulse Ox 94 94 O2 Delivery Nasal Cannula Nasal Cannula O2 Flow Rate 4.0 4.0 Intake and Output 08/11/18 08/11/18 08/12/18 15:00 23:00 07:00 Intake Total 100 ml 550 ml Output Total 390 ml 400 ml Balance -290 ml 150 ml NEGRITO العلي MD Aug 12, 2018 10:32
[2018-08-12 11:32] VITALS: BP 122/64
--- NOTE | 2018-08-12 14:00 | PDOC ---
PULMONARY PROGRESS NOTES Subjective extubated 04/09 doing well Vitals Vital Signs Date Time Temp Pulse Resp B/P (MAP) Pulse Ox O2 Delivery O2 Flow Rate FiO2 08/12/18 11:32 97.4 105 20 122/64 (83) 94 Nasal Cannula 4.0 97.4 Comments ros as mentioned as above, discussed w rn, other sys otherwise neg sedated on vent General: Alert, No acute distress HEENT: Other (nc at perrl. nose throat clear.... neck, no lad, no thyromegaly) Cardiovascular: S1, S2 Abdomen: Soft, Non-tender Neuro Exam: Alert Extremities: Other (trace edema) Skin: Warm Labs Laboratory Tests Test 08/10/18 18:26 08/11/18 00:20 08/11/18 05:20 08/11/18 12:35 Glucose (Fingerstick) 92 mg/dL (70-99) 102 mg/dL (70-99) 131 mg/dL (70-99) White Blood Count 13.7 x10^3/uL (4.0-11.0) Red Blood Count 4.71 x10^6/uL (3.50-5.40) Hemoglobin 12.8 g/dL (12.0-15.5) Hematocrit 38.4 % (36.0-47.0) Mean Corpuscular Volume 82 fL (79-100) Mean Corpuscular Hemoglobin 27 pg (25-35) Mean Corpuscular Hemoglobin Concent 33 g/dL (31-37) Red Cell Distribution Width 14.3 % (11.5-14.5) Platelet Count 308 x10^3/uL (140-400) Neutrophils (%) (Auto) 77 % (31-73) Lymphocytes (%) (Auto) 18 % (24-48) Monocytes (%) (Auto) 4 % (0-9) Eosinophils (%) (Auto) 0 % (0-3) Basophils (%) (Auto) 0 % (0-3) Neutrophils # (Auto) 10.5 x10^3uL (1.8-7.7) Lymphocytes # (Auto) 2.5 x10^3/uL (1.0-4.8) Monocytes # (Auto) 0.6 x10^3/uL (0.0-1.1) Eosinophils # (Auto) 0.0 x10^3/uL (0.0-0.7) Basophils # (Auto) 0.1 x10^3/uL (0.0-0.2) Sodium Level 139 mmol/L (136-145) Potassium Level 4.0 mmol/L (3.5-5.1) Chloride Level 101 mmol/L (98-107) Carbon Dioxide Level 30 mmol/L (21-32) Anion Gap 8 (6-14) Blood Urea Nitrogen 23 mg/dL (7-20) Creatinine 0.6 mg/dL (0.6-1.0) Estimated GFR (Cockcroft-Gault) 117.4 Glucose Level 130 mg/dL (70-99) Calcium Level 9.2 mg/dL (8.5-10.1) Test 08/11/18 17:40 08/11/18 20:18 08/11/18 22:46 08/12/18 07:43 Glucose (Fingerstick) 120 mg/dL (70-99) 113 mg/dL (70-99) 97 mg/dL (70-99) 105 mg/dL (70-99) Test 08/12/18 11:27 Glucose (Fingerstick) 134 mg/dL (70-99) Laboratory Tests Test 08/11/18 17:40 08/11/18 20:18 08/11/18 22:46 08/12/18 07:43 Glucose (Fingerstick) 120 mg/dL (70-99) 113 mg/dL (70-99) 97 mg/dL (70-99) 105 mg/dL (70-99) Test 08/12/18 11:27 Glucose (Fingerstick) 134 mg/dL (70-99) Medications Active Scripts Medications Dose Route/Sig Max Daily Dose Days Date Category Dose Instructions Topiramate 25 Mg Tablet 1 Tab PO HS 07/28/18 Reported Phentermine Hcl 37.5 Mg Capsule 1 Cap PO DAILYWBKFT 07/28/18 Reported Metformin Hcl 500 Mg Tablet 500 Mg PO BIDWMEALS 07/28/18 Reported Motrin Ib (Ibuprofen) 200 Mg Tablet 800 Mg PO Q8H PRN 08/15/17 Rx Tessalon Perle (Benzonatate) 100 Mg Capsule 100 Mg PO TID PRN 01/11/17 Rx Prednisone 20 Mg Tablet 40 Mg PO DAILY 08/06/16 Rx START MEDICATIONS ON 08/07/2016 Medrol (Methylprednisolone) 4 Mg Tab.ds.pk 1 Pkg PO UD 11/16/14 Rx Levaquin (Levofloxacin) 750 Mg Tablet 750 Mg PO DAILY06 11/16/14 Rx Advair 250-50 Diskus (Fluticasone/Salmeterol) 1 Puff Puff 1 Puff INH BID 11/16/14 Rx Escitalopram Oxalate 20 Mg Tablet 1 Tab PO DAILY 11/09/14 Reported Xanax (Alprazolam) 0.25 Mg Tablet 0.25 Mg PO PRN Q6HRS PRN 11/09/14 Reported Comments cxr reviewed, mild residual infiltrates Impression . 1. Acute respiratory failure requiring mechanical ventilation 07/30. ARDS/ diffuse pneumonia. extubated 08/10 2. Acute exacerbation of chronic obstructive pulmonary disease with an asthma component. resolved. 3. abnl cxr, Diffuse lung infiltrates, suspect diffuse lung pneumonia/ ARDS/ improved 4. Morbid obesity, body mass index of 40, prob ji. 5. H/O Anxiety/panic attacks. 6. Status post cholecystectomy. influenza neg strep antigen/Legionella/Mycoplasma,, neg Rhino virus positive Plan . wean off oxygen Home CPAP qhs oral nutrition 02 titration to keep sat 94% change to PO steroids BD ICS discussed w rn, rt, pt doing well dc home in MINI Cagle MD Aug 12, 2018 14:00
[2018-08-12 15:00] VITALS: BP 141/83
--- NOTE | 2018-08-12 16:17 | PDOC3 ---
Discharge Summary Date of Admission: Jul 28, 2018 Date of Discharge: Aug 12, 2018 Follow-Up: 3-5 days Admitting Diagnosis comment: discharge daignosis d/w dr cameron by phone, ok with discharge Chief Complaint Severe asthma Acute hypoxic respiratory failure with extubation 08/08 Sepsis Pneumonia EZ lobe Acute asthma exacerbation improved Obesity Transaminitis, NOS discussed smoking cessation oral nutrition 02 titration to keep sat 94% change to PO steroids BD ICS discussed w rn, doing well dc home in am History of Present Illness History of Present Illness Pt seen and examined in ICU Dw RN Pt now extubated and talking , but slow. Up in chair working with PT/OT Vitals Vitals Vital Signs Date Time Temp Pulse Resp B/P (MAP) Pulse Ox O2 Delivery O2 Flow Rate FiO2 08/12/18 09:19 20 94 Nasal Cannula 4.0 08/12/18 09:09 105 122/64 08/12/18 07:00 97.4 97.4 Physical Exam Physical Exam GENERAL: Propped up in bed, alert, calm HEENT: Pupils are equal and reactive, ETT and OGT LUNGS: Clear anteriorly and post HEART: S1, S2 ABDOMEN: Obese, soft, nontender, positive bowel sounds. : King EXTREMITIES: No clubbing, cyanosis or gross edema. SKIN: Without signs of rash. NEUROLOGIC: Alert, nods to simple questions appropriately and follows commands RIJ (07/30) clean General: Alert, Oriented X3, No acute distress, Other Heart: Regular rate, Normal S1, Normal S2 Lungs: Crackles Abdomen: Normal bowel sounds, Soft Extremities: No cyanosis, No edema, Normal pulses Skin: No rashes, No breakdown, No significant lesion Labs FINAL DIAGNOSIS Problems Medical Problems: (1) Pneumonia Status: Acute Brief Hospital Course Ms. Ordaz is a 32 old [sex] who presented with [ ] CONDITION AT DISCHARGE: Stable Discharge Medications Current Medications Prednisone (Prednisone) 50 mg 1X ONCE PO Last administered on 07/28/18at 06:47; Start 07/28/18 at 07:00; Stop 07/28/18 at 07:01; Status DC Albuterol/ Ipratropium (Duoneb) 3 ml 1X ONCE NEB Last administered on at 06:37; Start 07/28/18 at 07:00; Stop 07/28/18 at 07:01; Status DC Sodium Chloride 1,000 ml @ 1,000 mls/hr 1X ONCE IV Last administered on at 07:03; Start 07/28/18 at 07:00; Stop 07/28/18 at 07:59; Status DC Albuterol Sulfate (Ventolin Neb Soln) 10 mg 1X ONCE CONT NEB Last administered on 07/28/18at 07:25; Start 07/28/18 at 07:00; Stop 07/28/18 at 07:02; Status DC Magnesium Sulfate 50 ml @ 25 mls/hr 1X ONCE IV Last administered on 07/28/18at 07:41; Start 07/28/18 at 07:15; Stop 07/28/18 at 09:14; Status DC Ceftriaxone Sodium 50 ml @ 100 mls/hr 1X ONCE IV Last administered on at 08:52; Start 07/28/18 at 08:15; Stop 07/28/18 at 08:44; Status DC Azithromycin 250 ml @ 250 mls/hr 1X ONCE IV Last administered on 07/28/18at 09: 20; Start 07/28/18 at 08:15; Stop 07/28/18 at 09:14; Status DC Acetaminophen/ Hydrocodone Bitart (Lortab 5/325) 2 tab 1X ONCE PO Last administered on 07/28/18at 08:49; Start 07/28/18 at 08:45; Stop 07/28/18 at 08:46; Status DC Ondansetron HCl (Zofran) 4 mg PRN Q8HRS PRN IV NAUSEA/VOMITING Last administered on 07/28/18at 22:40; Start 07/28/18 at 08:45; Stop 07/29/18 at 08:44; Status DC Acetaminophen (Tylenol) 650 mg PRN Q4HRS PRN PO FEVER Last administered on at 22:40; Start 07/28/18 at 08:45; Stop 07/29/18 at 08:44; Status DC Albuterol/ Ipratropium (Duoneb) 3 ml RTQID NEB Last administered on 07/29/18at 07 :29; Start 07/28/18 at 12:00; Stop 07/29/18 at 10:30; Status DC Acetaminophen/ Hydrocodone Bitart (Lortab 5/325) 2 tab Q6H PRN PO SEVERE PAIN Last administered on 08/12/18 09:19; Start 07/28/18 at 08:45 Prednisone (Prednisone) 60 mg DAILY PO ; Start 07/29/18 at 09:00; Stop 07/29/18 at 09:00; Status DC Budesonide (Pulmicort) 0.5 mg RTBID NEB Last administered on 08/12/18at 08:54; Start 07/28/18 at 20:00 Budesonide (Pulmicort) 0.5 mg 1X ONCE NEB Last administered on 07/28/18at 11:06 ; Start 07/28/18 at 09:30; Stop 07/28/18 at 09:31; Status DC Albuterol Sulfate (Ventolin Neb Soln) 2.5 mg PRN Q4HRS PRN NEB SHORTNESS OF BREATH; Start 07/28/18 at 09:30 Azithromycin (Zithromax) 250 mg DAILY PO Last administered on 08/01/18at 08:54; Start 07/28/18 at 10:00; Stop 08/01/18 at 09:01; Status DC Alprazolam (Xanax) 0.25 mg PRN Q6HRS PRN PO ANXIETY / AGITATION Last administered on 08/08/18at 08:24; Start 07/28/18 at 12:45 Ibuprofen (Motrin) 800 mg PRN Q8HRS PRN PO PAIN MILD/INFLAMMATION; Start at 12:45 Benzonatate (Tessalon Perle) 100 mg PRN TID PRN PO COUGH 2ND CHOICE Last administered on 08/12/18at 09:18; Start 07/28/18 at 14:00 Citalopram Hydrobromide (CeleXA) 40 mg DAILY PO Last administered on 08/12/18at 09:09; Start 07/28/18 at 13:00 Metformin HCl (Glucophage) 500 mg BIDWMEALS PO Last administered on 07/29/18at 10 :07; Start 07/28/18 at 17:00; Stop 07/31/18 at 08:58; Status DC Promethazine HCl/ Codeine (Phenergan With Codeine Oral Syrup) 5 ml PRN Q6HRS PRN PO COUGH 1ST CHOICE Last administered on 08/12/18at 01:54; Start 07/28/18 at 15:30 Guaifenesin (MUCINEX ER with DM) 1 tab BID PO Last administered on 07/30/18at 20: 57; Start 07/28/18 at 21:00; Stop 07/31/18 at 09:47; Status DC Lactobacillus Rhamnosus (Culturelle) 1 cap BID PO Last administered on at 21:44; Start 07/28/18 at 21:00; Stop 07/30/18 at 09:48; Status DC Prednisone (Prednisone) 30 mg DAILY PO Last administered on 07/29/18at 10:06; Start 07/29/18 at 09:00; Stop 07/31/18 at 08:58; Status DC Ceftriaxone Sodium 1 gm/ Dextrose 50 ml @ 100 mls/hr Q24H IV ; Start 07/29/18 at 09:00; Status UNV Ceftriaxone Sodium (Rocephin) 1 gm Q24H IVP Last administered on 07/29/18at 10:06 ; Start 07/29/18 at 09:00; Stop 07/30/18 at 10:07; Status DC Albuterol/ Ipratropium (Duoneb) 3 ml Q4HRS NEB Last administered on 08/02/18at 08 :40; Start 07/29/18 at 12:00; Stop 08/02/18 at 09:31; Status DC Budesonide (Pulmicort) 0.5 mg RTBID NEB ; Start 07/29/18 at 20:00; Status UNV Famotidine (Pepcid) 20 mg QHS PO Last administered on 07/29/18at 21:44; Start 07/29/18 at 21:00; Stop 07/30/18 at 10:10; Status DC Enoxaparin Sodium (Lovenox 40mg Syringe) 40 mg Q12H SQ Last administered on at 23:56; Start 07/29/18 at 12:30; Stop 08/09/18 at 09:13; Status DC Acetaminophen (Tylenol) 650 mg PRN Q6HRS PRN PO FEVER; Start 07/29/18 at 11:45 Ondansetron HCl (Zofran) 4 mg PRN Q6HRS PRN IV NAUSEA/VOMITING Last administered on 07/29/18at 15:23; Start 07/29/18 at 11:45 Morphine Sulfate (Morphine Sulfate) 2 mg PRN Q2HR PRN IV MODERATE TO SEVERE PAIN; Start 07/29/18 at 11:45; Stop 08/11/18 at 15:42; Status DC Tramadol HCl (Ultram) 50 mg PRN Q6HRS PRN PO MODERATE PAIN; Start 07/29/18 at 11 :45 Docusate Sodium (Colace) 100 mg PRN DAILY PRN PO CONSTIPATION; Start 07/29/18 at 11:45 Haloperidol Lactate (Haldol Inj) 2 mg PRN Q2HR PRN IVP AGITATION 2ND CHOICE Last administered on 08/01/18at 15:48; Start 07/30/18 at 01:30; Stop 08/07/18 at 21 :38; Status DC Lorazepam (Ativan) 0.25 mg PRN Q1HR PRN IV ANXIETY/AGITATION 1ST CHOICE Last administered on 08/07/18at 06:07; Start 07/30/18 at 01:30; Stop 08/11/18 at 15:42 ; Status DC Propofol 100 ml @ As Directed STK-MED ONCE IV ; Start 07/30/18 at 04:12; Stop at 04:13; Status DC Etomidate (Amidate) 20 mg STK-MED ONCE IV ; Start 07/30/18 at 04:18; Stop at 04:19; Status DC Propofol 100 ml @ 0 mls/hr CONT PRN IV PER PROTOCOL Last administered on at 03:25; Start 07/30/18 at 04:30; Stop 08/10/18 at 15:16; Status DC Chlorhexidine Gluconate (Peridex) 15 ml BID MM Last administered on 08/09/18at 21:01; Start 07/30/18 at 09:00; Stop 08/10/18 at 15:16; Status DC Midazolam HCl 100 ml @ 0 mls/hr CONT PRN IV PER PROTOCOL Last administered on at 01:30; Start 07/30/18 at 04:30; Stop 08/10/18 at 15:16; Status DC Piperacillin Sod/ Tazobactam Sod (Zosyn Per Pharmacy) 1 each PRN DAILY PRN MC SEE COMMENTS; Start 07/30/18 at 10:00; Status Cancel Vancomycin HCl (Vanco Per Pharmacy) 1 each PRN DAILY PRN MC SEE COMMENTS Last administered on 08/03/18at 08:31; Start 07/30/18 at 10:00; Stop 08/03/18 at 12:30; Status DC Methylprednisolone Sodium Succinate (SOLU-Medrol 125MG VIAL) 60 mg Q8HRS IV Last administered on 08/03/18at 05:49; Start 07/30/18 at 14:00; Stop 08/03/18 at 06: 32; Status DC Pantoprazole Sodium (PROTONIX VIAL for IV PUSH) 40 mg DAILYAC IVP Last administered on 08/11/18at 08:00; Start 07/30/18 at 10:30; Stop 08/11/18 at 15:42 ; Status DC Piperacillin Sod/ Tazobactam Sod 3.375 gm/Sodium Chloride 50 ml @ 100 mls/hr Q6HRS IV Last administered on 08/06/18at 05:35; Start 07/30/18 at 12:00; Stop 11/11 at 07:38; Status DC Vancomycin HCl 2 gm/Sodium Chloride 500 ml @ 250 mls/hr 1X ONCE IV Last administered on 07/30/18at 10:31; Start 07/30/18 at 10:30; Stop 07/30/18 at 12:29; Status DC Vancomycin HCl 1.5 gm/Sodium Chloride 500 ml @ 250 mls/hr Q8H IV Last administered on 07/31/18at 14:10; Start 07/30/18 at 18:30; Stop 07/31/18 at 17:00; Status DC Vancomycin HCl (Vancomycin Trough Level) 1 each 1X ONCE MC Last administered on 07/31/18at 13:30; Start 07/31/18 at 13:30; Stop 07/31/18 at 13:31; Status DC Insulin Human Lispro (HumaLOG) 0-7 UNITS TIDWMEALS SQ ; Start 07/31/18 at 08:00; Stop 07/31/18 at 09:04; Status DC Dextrose (Dextrose 50%-Water Syringe) 12.5 gm PRN Q15MIN PRN IV SEE COMMENTS; Start 07/30/18 at 17:45 Insulin Human Lispro (HumaLOG) 0-7 UNITS Q6HRS SQ Last administered on at 00:14; Start 07/31/18 at 12:00; Stop 08/11/18 at 22:46; Status DC Vancomycin HCl 1.75 gm/Sodium Chloride 500 ml @ 250 mls/hr Q8H IV Last administered on 08/01/18at 13:48; Start 07/31/18 at 22:00; Stop 08/01/18 at 22:01; Status DC Vancomycin HCl (Vancomycin Trough Level) 1 each 1X ONCE MC Last administered on 08/01/18at 21:01; Start 08/01/18 at 21:30; Stop 08/01/18 at 21:31; Status DC Erythromycin Ethylsuccinate (E.e.s. 200) 200 mg 1X ONCE PEG Last administered on 08/01/18at 12:19; Start 08/01/18 at 13:00; Stop 08/01/18 at 13:01; Status DC Vancomycin HCl 2 gm/Sodium Chloride 500 ml @ 250 mls/hr Q8H IV Last administered on 08/02/18at 22:56; Start 08/01/18 at 22:00; Stop 08/02/18 at 22:59; Status DC Vancomycin HCl (Vancomycin Trough Level) 1 each 1X ONCE MC Last administered on 08/02/18at 21:30; Start 08/02/18 at 21:30; Stop 08/02/18 at 21:31; Status DC Fentanyl Citrate 30 ml @ 0 mls/hr CONT PRN IV PER PROTOCOL Last administered on 08/10/18at 06:05; Start 08/02/18 at 07:00; Stop 08/10/18 at 15:16; Status DC Enalaprilat (Vasotec Inj) 1.25 mg PRN Q6HRS PRN IVP HYPERTENSION, SEE COMMENTS ; Start 08/02/18 at 09:15 Amlodipine Besylate (Norvasc) 2.5 mg DAILY PO Last administered on 08/12/18at 09 :09; Start 08/02/18 at 10:00 Albuterol/ Ipratropium (Duoneb) 3 ml RTQID NEB Last administered on 08/12/18at 12:00; Start 08/02/18 at 12:00 Vancomycin HCl 1.75 gm/Sodium Chloride 500 ml @ 250 mls/hr Q6H IV Last administered on 08/03/18at 05:53; Start 08/03/18 at 05:00; Stop 08/03/18 at 08:23; Status DC Vancomycin HCl (Vancomycin Trough Level) 1 each 1X ONCE MC ; Start 08/03/18 at 22:30; Stop 08/03/18 at 22:31; Status Cancel Methylprednisolone Sodium Succinate (SOLU-Medrol 125MG VIAL) 40 mg Q8HRS IV Last administered on 08/09/18at 06:29; Start 08/03/18 at 14:00; Stop 08/09/18 at 09:09; Status DC Vancomycin HCl 2 gm/Sodium Chloride 500 ml @ 250 mls/hr Q8H IV ; Start 08/03/18 at 14:00; Stop 08/03/18 at 14:00; Status DC Azithromycin 500 mg/Sodium Chloride 250 ml @ 250 mls/hr Q24H IV Last administered on 08/05/18at 13:08; Start 08/03/18 at 13:00; Stop 08/06/18 at 07:38 ; Status DC Haloperidol Lactate (Haldol Inj) 5 mg PRN Q6HRS PRN IVP AGITATION 2ND CHOICE Last administered on 08/08/18at 16:04; Start 08/07/18 at 21:45; Stop 08/11/18 at 15:42; Status DC Midazolam HCl (Versed) 2 mg PRN Q1HR PRN IV SEDATION Last administered on at 11:28; Start 08/07/18 at 21:45; Stop 08/10/18 at 15:16; Status DC Methylprednisolone Sodium Succinate (SOLU-Medrol 40MG VIAL) 40 mg Q12HR IV Last administered on 08/11/18at 08:01; Start 08/09/18 at 21:00; Stop 08/11/18 at 10:11; Status DC Enoxaparin Sodium (Lovenox 40mg Syringe) 40 mg Q24H SQ Last administered on at 21:28; Start 08/09/18 at 21:00 Furosemide (Lasix) 20 mg 1X ONCE IVP Last administered on 08/10/18at 10:45; Start 08/10/18 at 11:00; Stop 08/10/18 at 11:01; Status DC Methylprednisolone Sodium Succinate (SOLU-Medrol 40MG VIAL) 40 mg DAILY IV Last administered on 08/12/18at 09:27; Start 08/12/18 at 09:00; Stop 08/12/18 at 14:01; Status DC Nystatin (Nystatin Oral Susp) 5 ml [id number] Last administered on 08/12/18at 09:10; Start 08/11/18 at 17:00 Pantoprazole Sodium (Protonix) 40 mg DAILYAC PO Last administered on 08/12/18at 09:09; Start 08/12/18 at 07:30 Insulin Human Lispro (HumaLOG) 0-7 UNITS QIDACHS SQ ; Start 08/11/18 at 21:00 Prednisone (Prednisone) 30 mg DAILY PO ; Start 08/13/18 at 09:00 Active Scripts Active Motrin Ib (Ibuprofen) 200 Mg Tablet 800 Mg PO Q8H PRN Tessalon Perle (Benzonatate) 100 Mg Capsule 100 Mg PO TID PRN Prednisone 20 Mg Tablet 40 Mg PO DAILY START MEDICATIONS ON 08/07/2016 Medrol (Methylprednisolone) 4 Mg Tab.ds.pk 1 Pkg PO UD Levaquin (Levofloxacin) 750 Mg Tablet 750 Mg PO DAILY06 Advair 250-50 Diskus (Fluticasone/Salmeterol) 1 Puff Puff 1 Puff INH BID Reported Topiramate 25 Mg Tablet 1 Tab PO HS Phentermine Hcl 37.5 Mg Capsule 1 Cap PO [id number] Metformin Hcl 500 Mg Tablet 500 Mg PO BIDWMEALS Escitalopram Oxalate 20 Mg Tablet 1 Tab PO DAILY Xanax (Alprazolam) 0.25 Mg Tablet 0.25 Mg PO PRN Q6HRS PRN Vital Signs Vital Signs Date Time Temp Pulse Resp B/P (MAP) Pulse Ox O2 Delivery O2 Flow Rate FiO2 08/12/18 15:00 98.0 108 18 141/83 (102) 98 Nasal Cannula 4.0 98.0 Labs Laboratory Tests Test 08/10/18 18:26 08/11/18 00:20 08/11/18 05:20 08/11/18 12:35 Glucose (Fingerstick) 92 mg/dL (70-99) 102 mg/dL (70-99) 131 mg/dL (70-99) White Blood Count 13.7 x10^3/uL (4.0-11.0) Red Blood Count 4.71 x10^6/uL (3.50-5.40) Hemoglobin 12.8 g/dL (12.0-15.5) Hematocrit 38.4 % (36.0-47.0) Mean Corpuscular Volume 82 fL (79-100) Mean Corpuscular Hemoglobin 27 pg (25-35) Mean Corpuscular Hemoglobin Concent 33 g/dL (31-37) Red Cell Distribution Width 14.3 % (11.5-14.5) Platelet Count 308 x10^3/uL (140-400) Neutrophils (%) (Auto) 77 % (31-73) Lymphocytes (%) (Auto) 18 % (24-48) Monocytes (%) (Auto) 4 % (0-9) Eosinophils (%) (Auto) 0 % (0-3) Basophils (%) (Auto) 0 % (0-3) Neutrophils # (Auto) 10.5 x10^3uL (1.8-7.7) Lymphocytes # (Auto) 2.5 x10^3/uL (1.0-4.8) Monocytes # (Auto) 0.6 x10^3/uL (0.0-1.1) Eosinophils # (Auto) 0.0 x10^3/uL (0.0-0.7) Basophils # (Auto) 0.1 x10^3/uL (0.0-0.2) Sodium Level 139 mmol/L (136-145) Potassium Level 4.0 mmol/L (3.5-5.1) Chloride Level 101 mmol/L (98-107) Carbon Dioxide Level 30 mmol/L (21-32) Anion Gap 8 (6-14) Blood Urea Nitrogen 23 mg/dL (7-20) Creatinine 0.6 mg/dL (0.6-1.0) Estimated GFR (Cockcroft-Gault) 117.4 Glucose Level 130 mg/dL (70-99) Calcium Level 9.2 mg/dL (8.5-10.1) Test 08/11/18 17:40 08/11/18 20:18 08/11/18 22:46 08/12/18 07:43 Glucose (Fingerstick) 120 mg/dL (70-99) 113 mg/dL (70-99) 97 mg/dL (70-99) 105 mg/dL (70-99) Test 08/12/18 11:27 Glucose (Fingerstick) 134 mg/dL (70-99) Laboratory Tests Test 08/11/18 17:40 08/11/18 20:18 08/11/18 22:46 08/12/18 07:43 Glucose (Fingerstick) 120 mg/dL (70-99) 113 mg/dL (70-99) 97 mg/dL (70-99) 105 mg/dL (70-99) Test 08/12/18 11:27 Glucose (Fingerstick) 134 mg/dL (70-99) Allergies Allergies Coded Allergies Type Severity Reaction Last Updated Verified diphenhydramine Allergy Intermediate 04/09/14 Yes Disposition/Orders: D/C to Home Patient Instructions d/c planning 32 min NEGRITO العلي MD Aug 12, 2018 16:17
--- NOTE | 2018-08-12 16:19 | DISCH ---
DISCHARGE INSTRUCTIONS Condition on Discharge Condition on Discharge: Stable Activity After Discharge Activity Instructions for Disc: Activity as tolerated Lifting Instructions after Dis: No heavy lifting, No pulling or pushing, Add. restrict see below (use peak flow meter daily) Driving Instructions after Dis: Do not drive today Weight Bearing Status after Di: Full weight bearing Diet after Discharge Diet after Discharge: Cardiac Contacting the DRJillian after DC Call your doctor for: Concerns you may have Treatment/Equipment after DC Adaptive Equipment Issued: None Discharge Respiratory Equipmen: Oxygen Warfarin Follow-Up Warfarin Follow UP: see dr root in one week NEGRITO العلي MD Aug 12, 2018 16:19
[2018-08-12] MEDS ORDERED: ALBU2.5V5 NEB (16:26)
[2018-08-12] MEDS ORDERED: AMLO2.5T3 PO (16:26)
[2018-08-12] MEDS ORDERED: FLUCONAZOLE 100 MG TABLET. PO ONE (18:30)
[2018-08-13] MEDS ORDERED: predniSONE 10 MG TABLET PO SCH (09:00)
== END 2018-08-12 18:55 | disposition home or self-care (01) | DRG 870 ==
LOC: ER 06:08 → 5 SOUTH 08:10 → 1 WEST ICU 07-30 00:25 → 5 NORTH 08-11 16:03
PROVIDERS: ADMIT Internal Medicine; ATTEND Internal Medicine
PROC: 0BH17EZ Insertion of Endotracheal Airway into Trachea, Via Natural or Artificial Opening (ICD-10-PCS; principal; 2018-07-29)
PROC: 5A1935Z Respiratory Ventilation, Less than 24 Consecutive Hours (ICD-10-PCS; 2018-07-29)
PROC: 5A1955Z Respiratory Ventilation, Greater than 96 Consecutive Hours (ICD-10-PCS; 2018-07-30)
PROC: 02HV33Z Insertion of Infusion Device into Superior Vena Cava, Percutaneous Approach (ICD-10-PCS; 2018-07-30)
PROC: B548ZZA Ultrasonography of Superior Vena Cava, Guidance (ICD-10-PCS; 2018-07-30)
PROC: 5A1935Z Respiratory Ventilation, Less than 24 Consecutive Hours (ICD-10-PCS; 2018-08-10)
PROC: 5A1935Z Respiratory Ventilation, Less than 24 Consecutive Hours (ICD-10-PCS; 2018-08-11)
DX: A41.9 Sepsis, unspecified organism (principal); E43 Unspecified severe protein-calorie malnutrition; J96.01 Acute respiratory failure with hypoxia; J18.9 Pneumonia, unspecified organism; J44.0 Chronic obstructive pulmonary disease with (acute) lower respiratory infection; J44.1 Chronic obstructive pulmonary disease with (acute) exacerbation; J45.901 Unspecified asthma with (acute) exacerbation; J98.11 Atelectasis; Z68.41 Body mass index [BMI] 40.0-44.9, adult; D64.9 Anemia, unspecified; R74.0 Nonspecific elevation of levels of transaminase and lactic acid dehydrogenase [LDH]; F12.90 Cannabis use, unspecified, uncomplicated; E66.01 Morbid (severe) obesity due to excess calories; F17.200 Nicotine dependence, unspecified, uncomplicated; F32.9 Major depressive disorder, single episode, unspecified; F41.0 Panic disorder [episodic paroxysmal anxiety]; G47.33 Obstructive sleep apnea (adult) (pediatric); I07.1 Rheumatic tricuspid insufficiency; Z87.01 Personal history of pneumonia (recurrent); Z90.49 Acquired absence of other specified parts of digestive tract; Z93.0 Tracheostomy status; Z98.891 History of uterine scar from previous surgery; Z88.8 Allergy status to other drugs, medicaments and biological substances; Z68.36 Body mass index [BMI] 36.0-36.9, adult; Z79.899 Other long term (current) drug therapy
CPT/HCPCS: 36415; 36556; 36600; 71045; 71250; 74018; 76937; 80048; 80053; 80202; 81025; 82805; 82962; 83605; 83880; 84478; 84484; 85007; 85025; 85379; 85651; 86738; 87040; 87070; 87205; 87449; 87633; 87641; 87804; 93005; 93306; 94002; 94003; 94618; 94640; 94660; 94760; 96361; 96365; 96368; 99406; C1892; C9113; J0456; J0690; J0696; J1630; J1650; J1815; J1940; J2060; J2250; J2405; J2543; J2704; J2920; J2930; J3010; J3370; J3475; J7030; J7040; J7050; J7512; J7613; J7620; J7626; Q0144; 92526; 92610; 97110; 97116; 97530; 99285-25

== ENCOUNTER 2019-03-28 15:53 | Emergency (ER) | payer BC ==
[~2019-03-28] VITALS: Ht 165.1 cm; Wt 111.1 kg
[~2019-03-28 15:53] MED LIST changes: +ALBU2.5V5 NEB; +AMLO2.5T5 PO; +METF500T16 PO; +PHEN37.53 PO; +TOPI25TA7 PO
[2019-03-28 16:03] VITALS: BP 173/94
--- NOTE | 2019-03-28 16:04 | PHYS DOC ---
Past Medical History Past Medical History: Anxiety, Asthma Additional Past Medical Histor: h/o trach placement d/t pneumonia , PANIC ATTACKS Past Surgical History: Cholecystectomy, , Other Additional Past Surgical Histo: ARM Additional Information: non smoker Alcohol Use: Occasionally Drug Use: Marijuana Adult General Chief Complaint Chief Complaint: COUGH HPI HPI Patient is a 33-year-old female presents with a cough that has lasted for 4 days. The patient was yesterday at her primary care provider and diagnosed with bronchitis. She has a past history of pneumonia and so she was wanting to rule that out. Associated symptoms include headache, green mucus from the cough, and sore throat. Severity of pain is described as 3/10 and quality is cough that won't stop. Review of Systems Review of Systems Constitutional: Denies fever or chills [] Eyes: Denies change in visual acuity, redness, or eye pain [] HENT: Reports nasal congestion and sore throat [] Respiratory: Reports cough and denies shortness of breath [] Cardiovascular: No additional information not addressed in HPI [] GI: Denies abdominal pain, nausea, vomiting, bloody stools or diarrhea [] : Denies dysuria or hematuria [] Musculoskeletal: Denies back pain or joint pain [] Integument: Denies rash or skin lesions [] Neurologic: Denies headache, focal weakness or sensory changes [] Endocrine: Denies polyuria or polydipsia [] Complete systems were reviewed and found to be within normal limits, except as documented in this note. Current Medications Current Medications Current Medications Medications (Trade) Dose Ordered Sig/Fady Start Time Stop Time Status Last Admin Dose Admin Dexamethasone (Decadron) 10 mg 1X STAT 03/28/19 16:26 03/28/19 16:29 DC Info (CONTRAST GIVEN -- Rx MONITORING) 1 each PRN DAILY PRN 03/28/19 16:30 03/30/19 16:29 Iohexol (Omnipaque 300 Mg/ml) 75 ml 1X ONCE 03/28/19 16:15 03/28/19 16:19 DC Allergies Allergies Allergies Coded Allergies Type Severity Reaction Last Updated Verified diphenhydramine Allergy Intermediate 04/09/14 Yes Physical Exam Physical Exam Constitutional: Well developed, well nourished, no acute distress, non-toxic appearance. [] HENT: Normocephalic, atraumatic, bilateral external ears normal, Tympanic membranes clear bilaterally, with ear wax in the ear canal bilaterally, orophary nx moist, no oral exudates, nose normal. [] Eyes: PERRLA, EOMI, conjunctiva normal, no discharge. [] Neck: Normal range of motion, no tenderness, supple, no stridor. [] Cardiovascular:Heart rate regular rhythm, no murmur [] Lungs & Thorax: Bilateral breath sounds clear to auscultation [] Abdomen: Bowel sounds normal, soft, no tenderness, no masses, no pulsatile masses. [] Skin: Warm, dry, no erythema, no rash. [] Back: No tenderness, no CVA tenderness. [] Extremities: No tenderness, no cyanosis, no clubbing, ROM intact, no edema. [] Neurologic: Alert and oriented X 3, normal motor function, normal sensory function, no focal deficits noted. [] Psychologic: Affect normal, judgement normal, mood normal. [] Current Patient Data Vital Signs Vital Signs Date Time Temp Pulse Resp B/P (MAP) Pulse Ox O2 Delivery O2 Flow Rate FiO2 03/28/19 16:03 98.2 79 16 173/94 (120) 94 Room Air 98.2 EKG EKG [] Radiology/Procedures Radiology/Procedures Preliminary reading by Dr. Jackson[] No infiltrates or atelectasis. Normal x-ray Course & Med Decision Making Course & Med Decision Making Pertinent Labs and Imaging studies reviewed. (See chart for details) Discussed with patient that based on the clinical exam it is likely bronchitis but will order a chest xray to r/o pneumonia. Will also order dexamethasone in the ER to help with symptoms. Patient is agreeable. Chest x-ray is negative. Will d/c home. Educated on signs and symptoms to watch for. Dragon Disclaimer Dragon Disclaimer This electronic medical record was generated, in whole or in part, using a voice recognition dictation system. Departure Departure Impression: Primary Impression: Cough Disposition: 01 HOME, SELF-CARE Condition: STABLE Referrals: NITESH WHITLOCK (PCP) Patient Instructions: Cough, Adult, [id number] Additional Instructions: Come back to ER if symptoms worsen or you start running fevers. KATHRYN MONTESINOS APRN March 28, 2019 16:04
[2019-03-28] MEDS ORDERED: IOHEXOL 300 MG/ML 100ML VIAL. IV ONE (16:15)
[2019-03-28] MEDS ORDERED: DEXAMETHASONE 4 MG TABLET PO STA (16:26)
[2019-03-28] MEDS ORDERED: CONTRAST GIVEN. MC PRN (16:30)
--- NOTE | 2019-03-28 16:57 | RAD ---
EXAM: PA and Lateral Views of the Chest DATE: 03/28/2019 4:16 PM INDICATION: Cough COMPARISON: No Prior FINDINGS: The heart is not enlarged. Mediastinal and hilar contours are normal. No focal parenchymal airspace opacity. No pleural effusion or pneumothorax. IMPRESSION: 1. No radiographic evidence for acute cardiopulmonary process. Electronically signed by: Jez Lim MD (03/28/2019 4:54 PM) [facility]
[2019-03-29] MEDS ORDERED: DEXAMETHASONE 4 MG TABLET PO SCH (08:00)
== END 2019-03-28 16:36 | disposition home or self-care (01) ==
LOC: ER 15:53
DX: R05 Cough (principal); R51 Headache; J02.9 Acute pharyngitis, unspecified; J45.909 Unspecified asthma, uncomplicated; Z88.5 Allergy status to narcotic agent
CPT/HCPCS: 71046; 99284; J8540

== ENCOUNTER 2021-09-01 09:41 | Emergency (ER) | payer BC ==
[~2021-09-01] VITALS: Ht 170.2 cm; Wt 93.1 kg
[2021-09-01] MEDS ORDERED: LIDO:MAALOX 1:1 20 ML SINGLE DOSE. SWSW ONE (10:00)
[2021-09-01] MEDS ORDERED: ONDANSETRON ODT 4 MG TAB.RAPDIS. PO ONE (10:00)
--- NOTE | 2021-09-01 10:00 | PHYS DOC ---
Past Medical History Past Medical History: Anxiety, Asthma Additional Past Medical Histor: h/o trach placement d/t pneumonia , PANIC ATTACKS Past Surgical History: Cholecystectomy, , Other Additional Past Surgical Histo: ARM Smoking Status: Current Every Day Smoker Alcohol Use: Occasionally Drug Use: Marijuana General Adult EDM: Chief Complaint: FLANK PAIN HPI: HPI: 35-year-old female with a history of asthma requiring intubation, cholecystectomy 14 years ago, chronic right upper quadrant pain presents with r ight upper quadrant pain for the last several days that has been intermittent, gradual onset, located in the flank area radiating towards the front. She denies any vomiting or stool changes but admits to some nausea. She denies any diet changes and takes a keto diet. She has not seen a marketing information coordinator for her symptoms. The patient denies fever, chills, chest pain, shortness of breath, urinary symptoms, cough, recent trauma, or any other complaints. Review of Systems: Review of Systems: ROS otherwise reviewed is negative except for what was mentioned in HPI Heart Score: C/O Chest Pain: No Allergies: Allergies: Allergies Coded Allergies Type Severity Reaction Last Updated Verified diphenhydramine Allergy Intermediate 04/09/14 Yes Physical Exam: PE: Constitutional: No acute distress, non-toxic appearance. HENT: Atraumatic, bilateral external ears normal, nose normal. Eyes: PERRLA, EOMI, conjunctiva normal, no discharge. Neck: Normal range of motion, supple, no stridor. Cardiovascular: Heart rate regular rhythm. 2+ radial pulses Lungs & Thorax: No respiratory distress, symmetrical expansion. Bilateral breath sounds clear to auscultation Abdomen: Soft, no tenderness Skin: Warm, dry. Extremities: No tenderness, no cyanosis, ROM intact, no edema. Neurologic: Alert and oriented X 3, normal motor function, normal sensory function, no focal deficits noted. Non ataxic gait. GCS 15. Psychologic: Affect normal, judgment normal, mood normal. Current Patient Data: Labs: Laboratory Tests Test 09/01/21 09:58 09/01/21 10:25 Urine Collection Type Unknown Urine Color Yellow Urine Clarity Clear Urine pH 5.0 (<5.0-8.0) Urine Specific [place] >=1.030 (1.000-1.030) Urine Protein Negative mg/dL (NEG-TRACE) Urine Glucose (UA) Negative mg/dL (NEG) Urine Ketones (Stick) Negative mg/dL (NEG) Urine Blood Negative (NEG) Urine Nitrite Negative (NEG) Urine Bilirubin Negative (NEG) Urine Urobilinogen Dipstick 0.2 mg/dL (0.2 mg/dL) Urine Leukocyte Esterase Small (NEG) Urine RBC 0 /HPF (0-2) Urine WBC 5-10 /HPF (0-4) Urine Squamous Epithelial Cells Many /LPF Urine Bacteria Few /HPF (0-FEW) Bedside Urine HCG, Qualitative Hcg negative (Negative) White Blood Count 9.2 x10^3/uL (4.0-11.0) Red Blood Count 5.02 x10^6/uL (3.50-5.40) Hemoglobin 13.7 g/dL (12.0-15.5) Hematocrit 40.6 % (36.0-47.0) Mean Corpuscular Volume 81 fL (79-100) Mean Corpuscular Hemoglobin 27 pg (25-35) Mean Corpuscular Hemoglobin Concent 34 g/dL (31-37) Red Cell Distribution Width 13.4 % (11.5-14.5) Platelet Count 280 x10^3/uL (140-400) Neutrophils (%) (Auto) 56 % (31-73) Lymphocytes (%) (Auto) 36 % (24-48) Monocytes (%) (Auto) 5 % (0-9) Eosinophils (%) (Auto) 3 % (0-3) Basophils (%) (Auto) 1 % (0-3) Neutrophils # (Auto) 5.1 x10^3/uL (1.8-7.7) Lymphocytes # (Auto) 3.3 x10^3/uL (1.0-4.8) Monocytes # (Auto) 0.5 x10^3/uL (0.0-1.1) Eosinophils # (Auto) 0.3 x10^3/uL (0.0-0.7) Basophils # (Auto) 0.0 x10^3/uL (0.0-0.2) Sodium Level 140 mmol/L (136-145) Potassium Level 3.4 mmol/L (3.5-5.1) Chloride Level 106 mmol/L (98-107) Carbon Dioxide Level 21 mmol/L (21-32) Anion Gap 13 (6-14) Blood Urea Nitrogen 14 mg/dL (7-20) Creatinine 0.7 mg/dL (0.6-1.0) Estimated GFR (Cockcroft-Gault) 96.4 BUN/Creatinine Ratio 20 (6-20) Glucose Level 76 mg/dL (70-99) Calcium Level 8.7 mg/dL (8.5-10.1) Total Bilirubin 0.6 mg/dL (0.2-1.0) Aspartate Amino Transf (AST/SGOT) 21 U/L (15-37) Alanine Aminotransferase (ALT/SGPT) 38 U/L (14-59) Alkaline Phosphatase 68 U/L (46-116) Total Protein 7.3 g/dL (6.4-8.2) Albumin 3.8 g/dL (3.4-5.0) Albumin/Globulin Ratio 1.1 (1.0-1.7) Lipase 94 U/L (73-393) Vital Signs: Vital Signs Date Time Temp Pulse Resp B/P (MAP) Pulse Ox O2 Delivery O2 Flow Rate FiO2 09/01/21 10:00 76.0 76 18 146/81 (102) 97 Room Air 76.0 Course & Med Decision Making: Course & Med Decision Making Patient's labs are unremarkable, urine contaminated, she likely has chronic pain from her cholecystectomy. She felt better after interventions as below. Were not provided. Return precautions discussed. Patient will be referred to a gastroenterology clinic for further care. My Orders - SANTO VARGAS DO Procedure Category Date Status Time Cbc W Autod[employer] LAB 09/01/21 Complete 09:55 Ua, Cult If Indicated LAB 09/01/21 Complete 09:55 Lipase LAB 09/01/21 Complete 09:55 Comprehensive LAB 09/01/21 Complete Metabolic Panel 09:55 Urine Test PASCUAL 09/01/21 In Process 09:55 Ondansetron Odt PHA 09/01/21 Complete (Zofran Odt) 10:00 Lido:Maalox 1:1 (Gi PHA 09/01/21 Complete Cocktail) 10:00 Ketorolac 15mg Vial PHA 09/01/21 Complete (Toradol 15mg Vial) 10:30 Ketorolac 15mg Vial PHA 09/01/21 Complete (Toradol 15mg Vial) 10:45 Urine Culture HORACIO 09/01/21 In Process 10:54 Departure Departure Impression: Primary Impression: Chronic right upper quadrant pain Disposition: HOME / SELF CARE / HOMELESS Condition: IMPROVED Referrals: NITESH WHITLOCK (PCP) KATHRYN ROCA MD Patient Instructions: Abdominal Pain (Nonspecific) Additional Instructions: You were seen in the emergency department for abdominal pain. Your tests did not show any obvious acute cause of your symptoms and your physical exam was non concerning for a dangerous disease process at this time. This however can change early in a disease course. You must return to the ED if you develop any new or worrisome symptoms for another exam. - Make sure to drink plenty of fluids at home - You may take a gentle laxative such as Miralax (over the counter) for bowel comfort. - Avoid drinking alcohol while you are having abdominal pain as this may worsen symptoms. - Return to the ER if you are not able to tolerate water and/or a normal diet, have increased pain or a change in character of your pain, develop a fever (>100.3 F), have nausea, vomiting and/or diarrhea that is unable to be treated at home, pass out, and/or you are not able to perform you normal daily activity. Please follow-up with a marketing information coordinator for further care to chronic abdominal pain SANTO VARGAS DO Sep 01, 2021 10:00
[2021-09-01 10:16] LABS: BILIRUBIN,URINE NEGATIVE (NEG); CLARITY,URINE CLEAR; COLOR,URINE YELLOW; NITRITE,URINE NEGATIVE (NEG); PROTEIN,URINE NEGATIVE (NEG-TRACE); UROBILINOGEN,URINE 0.2 mg/dL (0.2 mg/dL)
[2021-09-01] MEDS ORDERED: KETOROLAC 15 MG/ML VIAL. IM ONE (10:30)
[2021-09-01 10:35] LABS: BASO % 1 % (0-3); EOS # 0.3 x10^3/uL (0.0-0.7); EOS % 3 % (0-3); HEMATOCRIT 40.6 % (36.0-47.0); HEMOGLOBIN 13.7 g/dL (12.0-15.5); LYMPH # 3.3 x10^3/uL (1.0-4.8); LYMPH % 36 % (24-48); MEAN CORPUSCULAR HEMOGLOBIN 27 pg (25-35); MEAN CORPUSCULAR HGB CONC 34 g/dL (31-37); MEAN CORPUSCULAR VOLUME 81 fL (79-100); MONO # 0.5 x10^3/uL (0.0-1.1); MONO % 5 % (0-9); NEUT # 5.1 x10^3/uL (1.8-7.7); NEUT % 56 % (31-73); PLATELET COUNT 280 x10^3/uL (140-400); RED BLOOD COUNT 5.02 x10^6/uL (3.50-5.40); RED CELL DISTRIBUTION WIDTH 13.4 % (11.5-14.5); WHITE BLOOD COUNT 9.2 x10^3/uL (4.0-11.0)
[2021-09-01] MEDS ORDERED: KETOROLAC 15 MG/ML VIAL. IVP ONE (10:45)
[2021-09-01 10:51] VITALS: BP 129/82
[2021-09-01 10:51] LABS: ALBUMIN 3.8 g/dL (3.4-5.0); ALBUMIN/GLOBULIN RATIO 1.1 (1.0-1.7); CALCIUM 8.7 mg/dL (8.5-10.1); CREATININE 0.7 mg/dL (0.6-1.0); GFR 96.4; POTASSIUM 3.4 mmol/L (3.5-5.1); TOTAL BILIRUBIN 0.6 mg/dL (0.2-1.0); TOTAL PROTEIN 7.3 g/dL (6.4-8.2)
[2021-09-01 10:54] LABS: BACTERIA,URINE FEW /HPF (0-FEW); RBC,URINE 0 /HPF (0-2)
== END 2021-09-01 11:27 | disposition home or self-care (01) ==
LOC: ER 09:41
DX: R10.11 Right upper quadrant pain (principal); G89.29 Other chronic pain; R11.0 Nausea; J45.909 Unspecified asthma, uncomplicated; F41.9 Anxiety disorder, unspecified; F17.200 Nicotine dependence, unspecified, uncomplicated; Z90.49 Acquired absence of other specified parts of digestive tract; Z98.890 Other specified postprocedural states; Z88.8 Allergy status to other drugs, medicaments and biological substances
CPT/HCPCS: 36415; 80053; 81001; 81025; 83690; 85025; 87086; 96374; 99283; J1885